=== PATIENT | female | born 1955 | race Caucasian/White ===

== ENCOUNTER → 2020-10-01 15:09 | Outpatient (BNVA) | payer MEDICARE, OTHER, SELFPAY | PROVIDERS: PCP Internal Medicine; Referring Provider Internal Medicine; Visit Provider Internal Medicine | DX: J45.20 Mild intermittent asthma, uncomplicated (principal); G47.33 Obstructive sleep apnea (adult) (pediatric); E66.01 Morbid (severe) obesity due to excess calories; Z68.43 Body mass index [BMI] 50.0-59.9, adult; Z99.89 Dependence on other enabling machines and devices | CPT/HCPCS: 99202 ==

== ENCOUNTER → 2021-01-07 13:33 | Outpatient (BNVA) | payer MEDICARE, OTHER, SELFPAY | PROVIDERS: PCP Internal Medicine; Visit Provider Internal Medicine | DX: J45.909 Unspecified asthma, uncomplicated (principal); E66.01 Morbid (severe) obesity due to excess calories; G47.33 Obstructive sleep apnea (adult) (pediatric); Z99.89 Dependence on other enabling machines and devices | CPT/HCPCS: 99212 ==

== ENCOUNTER 2021-02-07 10:08 | Outpatient (REF) | payer MEDICARE, OTHER, SELFPAY ==
--- NOTE | ~2021-02-07 | MM_ITS ---
EXAMINATION: BONE DENSITOMETRY CLINICAL INDICATION: Postmenopausal estrogen deficiency. COMPARISON: None (current study represents initial baseline exam). TECHNIQUE: Using a BigTip DXA System (software version: 13.1) manufactured by [employer], dual-energy x-ray absorptiometry was performed of the lumbar spine and left hip. The images are of good technical quality. Summary results are attached. FINDINGS: AP SPINE L1-L4: BMD 1.220 g/cm2, Z-score 0.8, T-score 0.3, normal. LEFT FEMUR, NECK: BMD 0.888 g/cm2, Z-score -0.3, T-score -1.1, osteopenia. LEFT FEMUR, TOTAL: BMD 0.899 g/cm2, Z-score -0.4, T-score -0.9, normal. IDENTIFIED RISK FACTORS: Height loss, low calcium intake, thiazide, menopause, hysterectomy, bilateral oophorectomy. HISTORY OF FRACTURE: None listed. MEDICATIONS: Calcium supplements or multivitamin, vitamin D. MM/XR DEXA axial skeleton IMPRESSION: 1. DIAGNOSIS: Osteopenia based on the lowest T-score value of -1.1 in the femoral neck applying World Health Organization criteria. 2. 10-YEAR FRACTURE RISK PREDICTION, FRAX: Major osteoporotic fracture (clinical spine, forearm, hip or shoulder) 6.3%. Hip fracture 0.4%. 3. Treatment Recommendations: NOF guidelines recommend consideration for treatment in postmenopausal women and men age 50 and older presenting with the following: -A hip or vertebral (clinical or morphometric) fracture. -T-score less than or equal to -2.5 at the femoral neck or spine after appropriate evaluation to exclude secondary causes. -Low bone mass at the hip or spine and a 10-year fracture probability by FRAX of greater than or equal to 3% for hip fracture or greater than or equal to 20% for major osteoporotic fracture based on the [place] adapted WHO algorithm. 4. Other Recommendations: All treatment decisions require clinical judgment and consideration of individual patient factors, including patient preferences, comorbidities, previous drug use, risk factors not captured in the FRAX model (e.g. frailty, falls, vitamin D deficiency, increased bone turnover, interval significant decline in bone density) and possible under or overestimation of fracture risk by FRAX. Additional medical evaluation for secondary cause of low bone mineral density may be appropriate. FUTURE SCAN RECOMMENDATION: People with diagnosed cases of osteoporosis or at high risk for fracture should have regular bone mineral density tests. For patients eligible for Medicare, routine testing is allowed once every 2 years. The testing frequency can be increased to one year for patients who have rapidly progressing disease, those who are receiving or discontinuing medical therapy to restore bone mass, or have additional risk factors.
== END 2021-02-07 10:09 | disposition home or self-care (01) ==
LOC: HO.MAMMO 10:08
PROVIDERS: PCP Internal Medicine; Visit Provider Obstetrics & Gynecology
DX: Z13.820 Encounter for screening for osteoporosis (principal); Z78.0 Asymptomatic menopausal state; E28.0 Estrogen excess; R29.890 Loss of height; E83.51 Hypocalcemia; Z90.710 Acquired absence of both cervix and uterus; Z90.722 Acquired absence of ovaries, bilateral; Z79.899 Other long term (current) drug therapy
CPT/HCPCS: 77080

== ENCOUNTER 2021-03-29 10:51 | Outpatient (REF) | payer MEDICARE, OTHER, SELFPAY ==
--- NOTE | ~2021-03-29 | MM_ITS ---
EXAMINATION: MM SCREENING DIGITAL BREAST TOMOSYNTHESIS, BILATERAL CLINICAL INFORMATION: Screening. Asymptomatic. The lifetime risk of breast cancer based on the Tyrer-Cuzick Model is 4%. COMPARISON: Mammography: 05/28/2015, 01/04/2014 TECHNIQUE: Digital breast tomosynthesis is performed in both the craniocaudal and mediolateral oblique views along with computer-aided detection (CAD). Synthesized 2D images are generated from the tomosynthesis. Additional bilateral CC views are provided. FINDINGS: There are scattered areas of fibroglandular density (ACR BI-RADS breast composition Category b). There are no significant masses, abnormal calcifications, or other abnormalities. Background stromal markings are similar to prior studies. The axilla and skin contours are unremarkable. MM/MM tomosynthesis screening BI IMPRESSION: No mammographic evidence of malignancy. ASSESSMENT: BI-RADS 1: Negative RECOMMENDATION: Routine annual mammography screening. This patient's information was entered into a reminder system with a target due date for their next mammogram.
== END 2021-03-29 10:52 | disposition home or self-care (01) ==
LOC: HO.MAMMO 10:51
PROVIDERS: Visit Provider Internal Medicine
DX: Z12.31 Encounter for screening mammogram for malignant neoplasm of breast (principal)
CPT/HCPCS: 77063; 77067

== ENCOUNTER → 2021-05-01 13:25 | Outpatient (BNVA) | payer MEDICARE, OTHER, SELFPAY | PROVIDERS: PCP Internal Medicine; Visit Provider Internal Medicine | DX: E66.01 Morbid (severe) obesity due to excess calories (principal); G47.33 Obstructive sleep apnea (adult) (pediatric); J45.909 Unspecified asthma, uncomplicated; Z99.89 Dependence on other enabling machines and devices | CPT/HCPCS: 99212 ==

== ENCOUNTER → 2021-10-29 13:11 | Outpatient (BNVA) | payer MEDICARE, OTHER, SELFPAY | PROVIDERS: PCP Internal Medicine; Visit Provider Internal Medicine | DX: J45.909 Unspecified asthma, uncomplicated (principal); G47.33 Obstructive sleep apnea (adult) (pediatric); E66.01 Morbid (severe) obesity due to excess calories; Z99.89 Dependence on other enabling machines and devices; Z68.43 Body mass index [BMI] 50.0-59.9, adult | CPT/HCPCS: 99212 ==

== ENCOUNTER 2022-04-04 10:53 | Outpatient (REF) | payer MEDICARE, OTHER, SELFPAY ==
--- NOTE | ~2022-04-04 | MM_ITS ---
EXAMINATION: MM SCREENING DIGITAL BREAST TOMOSYNTHESIS, BILATERAL CLINICAL INFORMATION: Screening. Asymptomatic. The lifetime risk of breast cancer based on the Tyrer-Cuzick Model is 7%. COMPARISON: Mammography: 03/29/2021, 05/28/2015 TECHNIQUE: Digital breast tomosynthesis is performed in both the craniocaudal and mediolateral oblique views along with computer-aided detection (CAD). Synthesized 2D images are generated from the tomosynthesis. Additional bilateral CC and bilateral MLO views are obtained. FINDINGS: There are scattered areas of fibroglandular density (ACR BI-RADS breast composition Category b). Breast tissue composition borders on predominantly fatty. Background stromal and fibroglandular densities are stable. There is no developing density or interval mass or architectural abnormality. No abnormal calcifications. The axilla and skin contours are unremarkable. MM/MM tomosynthesis screening BI IMPRESSION: No mammographic evidence of malignancy. ASSESSMENT: BI-RADS 1: Negative RECOMMENDATION: Routine annual mammography screening. This patient's information was entered into a reminder system with a target due date for their next mammogram.
== END 2022-04-04 10:54 | disposition home or self-care (01) ==
LOC: HO.MAMMO 10:53
PROVIDERS: PCP Internal Medicine; Visit Provider Internal Medicine
DX: Z12.31 Encounter for screening mammogram for malignant neoplasm of breast (principal)
CPT/HCPCS: 77063; 77067

== ENCOUNTER 2022-04-24 07:54 | Outpatient (REF) | payer MEDICARE, OTHER, SELFPAY ==
--- NOTE | ~2022-04-24 | CT_ITS ---
EXAMINATION: CT ABDOMEN AND PELVIS WITH CONTRAST CLINICAL INFORMATION: Abdominal pain. Diverticulitis. COMPARISON: Previous CT colonoscopy August 2016 TECHNIQUE: Multidetector volumetric images were obtained from the superior aspect of the liver through the pubic symphysis following administration 100 mL of Omnipaque 300 intravenous contrast. Sagittal and coronal reformatted images were obtained on the technologist's workstation. Oral contrast: Yes This CT examination was performed using dose optimization techniques as appropriate, variously including the following: *Automated exposure control *Adjustment of mA and/or kV according to patient size (this includes techniques or standardized protocols for targeted exams where dose is matched to indication/reason for exam; i.e. extremities or head) *Use of iterative reconstruction technique DLP: 1177 mGy-cm FINDINGS: LUNG BASES: The heart is enlarged. The lung bases are clear. LIVER, GALLBLADDER, AND BILIARY TREE: Enlarged fatty liver. No focal liver lesion is seen. The gallbladder is been removed. There is no biliary duct dilatation. PANCREAS: Unremarkable. SPLEEN: Unremarkable. ADRENAL GLANDS: Unremarkable. KIDNEYS AND URETERS: There is a 2 cm peripelvic cyst in the left kidney. The kidneys are otherwise unremarkable. No imaging follow-up needed. BLADDER: Not optimally distended. GASTROINTESTINAL TRACT: Stool throughout the colon. Diverticulosis. No evidence of diverticulitis. Nonspecific fatty infiltration of the wall of the right colon. This can be seen with old colitis. No evidence of acute colitis or diverticulitis. Normal appendix. Gastric lap band. ABDOMINAL WALL: No significant hernia is appreciated. LYMPH NODES: Normal. VASCULAR: There is evidence of atherosclerotic disease. No aneurysm. PELVIC VISCERA: Uterus appears to have been removed. No pelvic mass. OSSEOUS STRUCTURES: Degenerative changes of the spine and hip joints.. CT/CT abdomen pelvis w con IMPRESSION: Diverticulosis and constipation. No evidence of diverticulitis. Enlarged fatty liver. Left renal cyst. Gastric lap band. Fleischner guidelines were followed.
== END 2022-04-24 07:55 | disposition home or self-care (01) ==
LOC: HO.CT 07:54
PROVIDERS: PCP Internal Medicine; Visit Provider Internal Medicine
DX: R10.84 Generalized abdominal pain (principal)
CPT/HCPCS: 74177; Q9967

== ENCOUNTER → 2022-05-01 13:06 | Outpatient (BNVA) | payer MEDICARE, OTHER, SELFPAY | PROVIDERS: PCP Internal Medicine; Visit Provider Internal Medicine | DX: J45.909 Unspecified asthma, uncomplicated (principal); R06.02 Shortness of breath; E66.01 Morbid (severe) obesity due to excess calories; Z68.43 Body mass index [BMI] 50.0-59.9, adult; G47.33 Obstructive sleep apnea (adult) (pediatric); Z99.89 Dependence on other enabling machines and devices | CPT/HCPCS: 94010; 99212 ==

== ENCOUNTER 2022-06-13 17:01 | Emergency (ER) | payer MEDICARE, OTHER, SELFPAY ==
--- NOTE | ~2022-06-13 | XR_ITS ---
EXAMINATION: XR CHEST CLINICAL INFORMATION: Shortness of breath. COMPARISON: 10/29/2012 chest and rib radiographs. TECHNIQUE: Frontal view of the chest was obtained. FINDINGS: No significant abnormality is noted involving the heart, lungs, mediastinum, bony thorax or soft tissues. XR/XR chest 1V IMPRESSION: No acute cardiopulmonary process.
[2022-06-13 17:13] VITALS: BP 150/83; PULSE 83; RESP 18; TEMP 36.9; O2SAT 98; BMI 58.4
--- NOTE | 2022-06-13 17:19 | ED_ITS ---
HPI - SOB/Dyspnea General Chief Complaint: Dyspnea Stated Complaint: SOB +covid Time Seen by Provider: 06/13/22 17:14 Source: patient Mode of arrival: ambulatory Limitations: no limitations History of Present Illness HPI Narrative: This is a 66-year-old female pmhx obesity, copd, asthma presenting to the emergency department with complaints of shortness of breath, sore throat, malaise, fatigue, inability to taste or smell x5 days worsening. Patient tells me that she took an at-home COVID test today around noon and she was noted to be COVID positive. She tells me she is presenting today because she wants [place] lovid. She tells me that she tried calling her PCP who did never got back to her, she tried to attend a virtual appointment however was not able to do to technological issues, then she called in urgent care and they told him that they did not prescribe it. Patient tells me she is very worried because of her shortness of breath. Initially when she came to the emergency department she arrived on 4 L via nasal cannula and saturating 100% on room air, patient does not wear oxygen at home I immediately took her off of nasal cannula and she was still saturating 97% on room air. She reports she feels some chest discomfort/congestion. Denies nausea, vomiting, abdominal pain, headache, dizziness, leg swelling. MD elicited complaint: shortness of breath Pertinent past history: COPD, asthma and other (obesity ) Onset (ago): day(s) (5) Timing: constant Severity: moderate Exacerbating factors: nothing Relieving factors: nothing Known history of: COPD and asthma Associated symptoms: chest pain Related Data Home Medications Medication Instructions Recorded Confirmed paroxetine HCl 30 mg tablet 50 mg PO DAILY 10/01/20 Previous Rx's Medication Instructions Recorded atenolol 50 mg tablet 50 mg PO DAILY #30 tabs 09/17/20 cetirizine 10 mg capsule (Zyrtec) 10 mg PO DAILY 30 days #30 caps 09/17/20 cholecalciferol (vitamin D3) 25 25 mcg PO DAILY #30 caps 09/17/20 mcg (1,000 unit) capsule cyanocobalamin (vitamin B-12) 100 100 mcg PO DAILY #30 tabs 09/17/20 mcg tablet hydrochlorothiazide 12.5 mg tablet 12.5 mg PO DAILY #30 tabs 09/17/20 ibuprofen 800 mg tablet 800 mg PO ONCE #30 tabs 09/17/20 multivitamin 1 tab PO DAILY #30 tabs 09/17/20 nystatin 100,000 unit/gram topical 1 applic topical BID #60 grams 09/17/20 powder omega-3 fatty acids 1,250 mg 1,250 mg PO DAILY #30 caps 09/17/20 capsule simvastatin 20 mg tablet 20 mg PO DAILY #30 tabs 09/17/20 valsartan 80 mg tablet (Diovan) 80 mg PO DAILY #30 tabs 09/17/20 albuterol sulfate 90 mcg/actuation 2 puff inhalation Q4-6H PRN 10/29/21 aerosol inhaler (ProAir HFA) shortness of breath or wheezing 30 days #8.5 grams beclomethasone dipropionate 80 1 inh inhalation Q12H aSTHMA 30 10/29/21 mcg/actuation HFA breath activated days #10.6 grams aerosol (Qvar RediHaler) Allergies Allergy/AdvReac Type Severity Reaction Status Date / Time adhesive tape [ADHESIVE TAPE] Allergy Intermediate BLISTERS Verified 05/01/22 13:30 Review of Systems Review of Systems: Constitutional : No Weight loss, No Fever, No Chills, No Fatigue, No Malaise ENT/Mouth : No sore throat, No Rhinorrhea Eyes: No Eye Pain, No Swelling, No Redness Cardiovascular : + Chest Pain, + SOB, No Dyspnea on Exertion, No Orthopnea, No Edema, No Palpitations Respiratory : No Cough, No Sputum, No Wheezing Gastrointestinal : No Nausea, No Vomiting, No Diarrhea, No Constipation, No abdominal Pain, No Hematochezia, No Melena Genitourinary : No Dysuria, No Urinary Frequency, No Hematuria, Musculoskeletal : No joint pain, No Myalgias, No Joint Swelling Skin : No Skin Lesions, No rash Neuro : No Weakness, No Numbness, No Dizziness, No Headache All other systems reviewed and are negative Yes all other systems are reviewed and are negative [facility] Past Medical History Attestation statement: The following information was validated with the patient. Source: old records reviewed and nursing notes reviewed Medical History Bronchial asthma Morbid obesity JIMBO on CPAP Social History Social History Advance Directives: No Advance Directives Information Provided: No Physical Exam Vital Signs: Vital Signs: Last Vital Signs Temp 99.8 F 06/13/22 19:08 Pulse 76 06/13/22 19:08 Resp 18 06/13/22 17:13 BP 141/72 H 06/13/22 19:08 Pulse Ox 95 06/13/22 19:08 O2 Del Method 06/13/22 19:08 BMI result Body Mass Index 58.4 VSS Appearance: Alert.? Oriented X3.? No acute distress.? Head: Normocephalic, atraumatic, no step-offs or deformities Eyes: Pupils equal, round and reactive to light.? ENT: Pharynx normal.? Neck: Normal inspection.? Neck supple.? CVS: Normal heart rate and rhythm.? Pulses normal.? Respiratory: No respiratory distress.? Breath sounds normal.? Abdomen: Soft and nontender.? Skin: Skin warm and dry.? Normal skin color.? Normal skin turgor.? Extremities: No lower extremity edema.? No calf ttp. 5/5 strength to bilateral upper and lower extremities Back: No midline tenderness, no C-spine tenderness, full range of motion, no CVA tenderness bilaterally Neuro: Oriented X 3.? No motor deficit.? No sensory deficit. CN 2-12 intact Course Reevaluation(s) Reevaluation #1: CBC appears to be within normal limits. Chemistry with no acute electrolyte abnormalities requiring intervention. Troponin 8.1, will repeat 1 , EKG pending. COVID positive. Chest x-ray with no acute cardiopulmonary process is noted. Patient's vital signs remained stable she is saturating between 95-98% on room air. Time: 20:58 Reevaluation #2: Second troponin negative EKG nonischemic. Unlikely ACS. Low suspicion for PE. Patient's symptoms likely secondary to COVID-19. Discussed Paxlovid with cordell ent, explained to her that since her symptoms have been going on for 5 days it may not be as effective. Patient does not want tx with Paxlovid. At this time patient will be discharged home with strict return precautions. She is saturating 95% on room air even after ambulation. No need for hospital admission at this time. Time: 23:17 MDM - SOB/Dyspnea MDM Narrative Medical decision making narrative: 2054 66-year-old female presenting with COVID like symptoms x5 days. She is vaccinated x2. Physical examination benign. Vital signs are stable. No lower extremity edema, negative [place] bilaterally. Very low suspicion for PE. Will rule out ACS. Will obtain a chest x-ray to rule out pneumonia. Likely all symptoms secondary to COVID-19. Plan at this time is labs, troponin, EKG, chest x-ray. Medical Records Attestation: I reviewed the patient's medical records. Lab Data Attestation: I reviewed the patient's lab results. Result diagrams: 06/13/22 19:17 06/13/22 19:17 Labs: Lab Results 06/13/22 06/13/22 06/13/22 Range/Units 19:17 19:17 19:17 WBC 5.3 (4.8-10.8) X10*3/uL RBC 4.35 (4.20-5.50) X10*6/uL Hgb 12.9 (12.0-16.0) g/dl Hct 38.0 (37.0-47.0) % MCV 87.4 (80.0-98.0) fL MCH 29.7 (27.0-33.0) pg MCHC 33.9 (31.0-35.0) g/dl RDW 13.3 (11.0-16.0) % Plt Count 177 (160-400) X10*3/uL MPV 10.6 (9.4-12.3) fL Immature Gran % (Auto) 0.4 (0.0-0.4) % Neut % (Auto) 62.8 (45-73) % Lymph % (Auto) 19.8 L (20-40) % [place] % (Auto) 16.4 H (2-11) % Eos % (Auto) 0.4 (0-4) % Baso % (Auto) 0.2 (0-2) % Lymph # (Auto) 1.1 L (1.2-4.9) X10*3/uL [place] # (Auto) 0.9 (0.1-1.2) X10*3/uL Eos # (Auto) 0.0 (0.0-0.4) X10*3/uL Baso # (Auto) 0.0 (0.0-0.2) X10*3/uL Abs Immat Gran (auto) 0.02 (0.00-0.03) X10*3/uL Absolute Neuts (auto) 3.3 (2.0-8.3) x10*3/uL Absolute Nucleated RBC 0.000 (0.0-0.012) X10*3/uL Nucleated RBC % (auto) 0.0 (0.0-0.2) /100WBC Sodium 142 (135-145) mmol/L Potassium 3.6 (3.3-5.1) mmol/L Chloride 105 (96-108) mmol/L Carbon Dioxide 26 (22-29) mmol/L Anion Gap 15 (12-20) BUN 13 (9-16) mg/dL Creatinine 0.61 (0.5-1.4) mg/dL Estim Creat Clear Calc 128.9 Estimated GFR > 60 Random Glucose 120 H (60-115) mg/dL Calcium 8.6 (8.4-10.2) mg/dL Magnesium 1.9 (1.6-2.6) mg/dL Total Bilirubin 0.7 (0.0-1.0) mg/dL AST 16 (5-31) U/L ALT 16 (0-31) U/L Alkaline Phosphatase 81 (39-117) U/L Troponin I High Sens (<3.5-17.0) ng/L Total Protein 6.2 L (6.5-8.0) g/dL Albumin 3.8 (3.5-5.0) g/dL Procalcitonin 0.05 ng/mL Urine Color Urine Appearance Urine pH (5.0-8.0) Ur Specific [place] (1.005-1.025) Urine Protein (NEG-TRACE) MG/DL Urine Glucose (UA) (NEG) MG/DL Urine Ketones (NEG) MG/DL Urine Blood (NEG) Urine Nitrite (NEG) Ur Leukocyte Esterase (NEG) COVID-19 (BOLIVAR) (Negative) COVID-19 Clin Com 06/13/22 06/13/22 06/13/22 Range/Units 19:17 19:17 21:50 WBC (4.8-10.8) X10*3/uL RBC (4.20-5.50) X10*6/uL Hgb (12.0-16.0) g/dl Hct (37.0-47.0) % MCV (80.0-98.0) fL MCH (27.0-33.0) pg MCHC (31.0-35.0) g/dl RDW (11.0-16.0) % Plt Count (160-400) X10*3/uL MPV (9.4-12.3) fL Immature Gran % (Auto) (0.0-0.4) % Neut % (Auto) (45-73) % Lymph % (Auto) (20-40) % [place] % (Auto) (2-11) % Eos % (Auto) (0-4) % Baso % (Auto) (0-2) % Lymph # (Auto) (1.2-4.9) X10*3/uL [place] # (Auto) (0.1-1.2) X10*3/uL Eos # (Auto) (0.0-0.4) X10*3/uL Baso # (Auto) (0.0-0.2) X10*3/uL Abs Immat Gran (auto) (0.00-0.03) X10*3/uL Absolute Neuts (auto) (2.0-8.3) x10*3/uL Absolute Nucleated RBC (0.0-0.012) X10*3/uL Nucleated RBC % (auto) (0.0-0.2) /100WBC Sodium (135-145) mmol/L Potassium (3.3-5.1) mmol/L Chloride (96-108) mmol/L Carbon Dioxide (22-29) mmol/L Anion Gap (12-20) BUN (9-16) mg/dL Creatinine (0.5-1.4) mg/dL Estim Creat Clear Calc Estimated GFR Random Glucose (60-115) mg/dL Calcium (8.4-10.2) mg/dL Magnesium (1.6-2.6) mg/dL Total Bilirubin (0.0-1.0) mg/dL AST (5-31) U/L ALT (0-31) U/L Alkaline Phosphatase (39-117) U/L Troponin I High Sens 8.1 8.2 (<3.5-17.0) ng/L Total Protein (6.5-8.0) g/dL Albumin (3.5-5.0) g/dL Procalcitonin ng/mL Urine Color Urine Appearance Urine pH (5.0-8.0) Ur Specific [place] (1.005-1.025) Urine Protein (NEG-TRACE) MG/DL Urine Glucose (UA) (NEG) MG/DL Urine Ketones (NEG) MG/DL Urine Blood (NEG) Urine Nitrite (NEG) Ur Leukocyte Esterase (NEG) COVID-19 (BOLIVAR) Positive A (Negative) COVID-19 Clin Com See Note 06/13/22 Range/Units 22:10 WBC (4.8-10.8) X10*3/uL RBC (4.20-5.50) X10*6/uL Hgb (12.0-16.0) g/dl Hct (37.0-47.0) % MCV (80.0-98.0) fL MCH (27.0-33.0) pg MCHC (31.0-35.0) g/dl RDW (11.0-16.0) % Plt Count (160-400) X10*3/uL MPV (9.4-12.3) fL Immature Gran % (Auto) (0.0-0.4) % Neut % (Auto) (45-73) % Lymph % (Auto) (20-40) % [place] % (Auto) (2-11) % Eos % (Auto) (0-4) % Baso % (Auto) (0-2) % Lymph # (Auto) (1.2-4.9) X10*3/uL [place] # (Auto) (0.1-1.2) X10*3/uL Eos # (Auto) (0.0-0.4) X10*3/uL Baso # (Auto) (0.0-0.2) X10*3/uL Abs Immat Gran (auto) (0.00-0.03) X10*3/uL Absolute Neuts (auto) (2.0-8.3) x10*3/uL Absolute Nucleated RBC (0.0-0.012) X10*3/uL Nucleated RBC % (auto) (0.0-0.2) /100WBC Sodium (135-145) mmol/L Potassium (3.3-5.1) mmol/L Chloride (96-108) mmol/L Carbon Dioxide (22-29) mmol/L Anion Gap (12-20) BUN (9-16) mg/dL Creatinine (0.5-1.4) mg/dL Estim Creat Clear Calc Estimated GFR Random Glucose (60-115) mg/dL Calcium (8.4-10.2) mg/dL Magnesium (1.6-2.6) mg/dL Total Bilirubin (0.0-1.0) mg/dL AST (5-31) U/L ALT (0-31) U/L Alkaline Phosphatase (39-117) U/L Troponin I High Sens (<3.5-17.0) ng/L Total Protein (6.5-8.0) g/dL Albumin (3.5-5.0) g/dL Procalcitonin ng/mL Urine Color YELLOW Urine Appearance CLEAR Urine pH 7.5 (5.0-8.0) Ur Specific [place] 1.015 (1.005-1.025) Urine Protein NEG (NEG-TRACE) MG/DL Urine Glucose (UA) NEG (NEG) MG/DL Urine Ketones 15 (NEG) MG/DL Urine Blood NEG (NEG) Urine Nitrite NEG (NEG) Ur Leukocyte Esterase NEG (NEG) COVID-19 (BOLIVAR) (Negative) COVID-19 Clin Com Critical Care Time Critical Care Time Critical Care Time: No Discharge Plan Discharge Clinical Impression: COVID-19 Patient Disposition: Home, Self-Care Instructions: COVID-19 (Coronavirus Disease 2019) (ED) Additional Instructions: Take your medications as prescribed. If you were prescribed antibiotics today, it is important that you take your medication to their entirety, do not skip any doses, do not finish them early. Today you tested positive for COVID-19. Take Ibuprofen or Tylenol as needed for fevers or body aches. Quarantine for 5 days and ensure you wear a mask. After 5 days you should wear a mask for 5 days after that. Practice social distancing and good hand hygiene. Drink plenty of fluids. Follow-up with your primary care provider this week. Return to the emergency department with new or worsening symptoms. In case of emergency call 911 You can purchase a pulse oximeter from your local pharmacy or grocery store, and monitor your oxygen saturation if it goes below 94% you should return to the emergency department for further evaluation. Prescriptions: No Action Qvar RediHaler 80 mcg/actuation HFA aerosol breath activated 1 inh inhalation Q12H 30 Days Qty: 10.6 5RF Rx Instructions: administer with spacer albuterol sulfate [ProAir HFA] 90 mcg/actuation HFA aerosol inhaler 2 puff inhalation Q4-6H PRN (Reason: shortness of breath or wheezing) 30 Days Qty: 8.5 3RF paroxetine HCl 30 mg tablet 50 mg PO DAILY Referrals: Ang Bernstein MD [Primary Care Provider] - 2 days
--- NOTE | 2022-06-13 17:42 | ECG_ITS ---
Test Reason : DYSPENA Blood Pressure : / mmHG Vent. Rate : 073 BPM Atrial Rate : 073 BPM P-R Int : 184 ms QRS Dur : 088 ms QT Int : 380 ms P-R-T Axes : 077 003 068 degrees QTc Int : 418 ms Normal sinus rhythm Nonspecific ST and T wave abnormality Abnormal ECG No significant changes when compared with the previous EKG of 09 mar 2006 Referred By: Maral Hernandez Electronically Signed By:DAVID LARA
[2022-06-13 19:08] VITALS: BP 141/72; PULSE 76; TEMP 37.7; O2SAT 95
[2022-06-13 19:25] LABS: MANUAL DIFF FLAG NO
[2022-06-13 19:27] LABS: Basophils Percent Auto 0.2 % (0-2); Eosinophils Percent Auto 0.4 % (0-4); Hemoglobin 12.9 g/dl (12.0-16.0); Imm Gran Abs Auto 0.02 X10*3/uL (0.00-0.03); Imm Gran Pct Auto 0.4 % (0.0-0.4); Lymphocytes Absolute Auto 1.1 X10*3/uL (1.2-4.9); Lymphocytes Percent Auto 19.8 % (20-40); Mean Corpuscular HGB Conc 33.9 g/dl (31.0-35.0); Mean Corpuscular Hemoglobin 29.7 pg (27.0-33.0); Mean Corpuscular Volume 87.4 fL (80.0-98.0); Mean Platelet Volume 10.6 fL (9.4-12.3); Monocytes Absolute Auto 0.9 X10*3/uL (0.1-1.2); Monocytes Percent Auto 16.4 % (2-11); Neutrophils Absolute Auto 3.3 x10*3/uL (2.0-8.3); Neutrophils Percent Auto 62.8 % (45-73); Platelet Count 177 X10*3/uL (160-400); Red Blood Count 4.35 X10*6/uL (4.20-5.50); Red Cell Distribution Width 13.3 % (11.0-16.0); White Blood Count 5.3 X10*3/uL (4.8-10.8)
[2022-06-13 19:38] LABS: COVID-19 Test Positive (Negative); IDNOW Serial# 55D5AD1C
[2022-06-13 19:48] LABS: Alanine Aminotransferase 16 U/L (0-31); Albumin Level 3.8 g/dL (3.5-5.0); Alkaline Phosphatase 81 U/L (39-117); Anion Gap 15 (12-20); Aspartate Amino Transferase 16 U/L (5-31); Bilirubin Total 0.7 mg/dL (0.0-1.0); Blood Urea Nitrogen 13 mg/dL (9-16); Calcium 8.6 mg/dL (8.4-10.2); Carbon Dioxide 26 mmol/L (22-29); Chloride 105 mmol/L (96-108); Creatinine Clr Calc Pharmacy 128.9; Estimated Glomerular Filt Rate > 60; Glucose Random 120 mg/dL (60-115); Magnesium 1.9 mg/dL (1.6-2.6); Potassium 3.6 mmol/L (3.3-5.1); Sodium 142 mmol/L (135-145); Total Protein 6.2 g/dL (6.5-8.0)
[2022-06-13 19:55] LABS: Troponin-I High Sensitivity 8.1 ng/L (<3.5-17.0)
[2022-06-13 20:45] LABS: Procalcitonin 0.05 ng/mL
[2022-06-13 22:19] LABS: Appearance Urine CLEAR; Color Urine YELLOW; Glucose Urine UA NEG (NEG); Leukocyte Esterase Urine NEG (NEG); Nitrite Urine NEG (NEG); PH 7.5 (5.0-8.0); Specific Gravity - Urine 1.015 (1.005-1.025); Urine Blood NEG (NEG); Urine Ketones 15 MG/DL (NEG); Urine Protein NEG (NEG-TRACE)
[2022-06-13 22:26] LABS: Troponin-I High Sensitivity 8.2 ng/L (<3.5-17.0)
== END 2022-06-14 00:01 | disposition home or self-care (01) ==
PROVIDERS: Physician Assistant; Emergency Provider Internal Medicine; PCP Internal Medicine
DX: U07.1 COVID-19 (principal); J02.9 Acute pharyngitis, unspecified; E66.01 Morbid (severe) obesity due to excess calories; Z68.43 Body mass index [BMI] 50.0-59.9, adult
CPT/HCPCS: 36415; 71045; 80053; 81003; 83735; 84145; 84484; 85025; 87635; 93005; 99283; 99284

== ENCOUNTER 2022-07-23 15:43 | Inpatient (IN) | payer MEDICARE, OTHER, SELFPAY ==
--- NOTE | ~2022-07-23 | CT_ITS ---
EXAMINATION: CT ANGIOGRAM OF THE CHEST WITH AND WITHOUT CONTRAST (CT PULMONARY ANGIOGRAM FOR PE) CLINICAL INFORMATION: Reason for Exam + dimer, new onset AFib, cp, sob COMPARISON: Chest radiograph 07/23/[address] abdomen pelvis 04/24/2022 TECHNIQUE: Prior to contrast administration, noncontrast localization images were obtained. Subsequently, multidetector volumetric imaging was performed from the thoracic inlet to below the diaphragms following the administration of 75 mL Omnipaque 350 intravenous contrast. No contrast reaction reported Sagittal, coronal, and MIP oblique sagittal reformatted images were obtained on the CT workstation, uploaded to PACS, and reviewed. This CT examination was performed using dose optimization techniques as appropriate, variously including the following: *Automated exposure control *Adjustment of mA and/or kV according to patient size (this includes techniques or standardized protocols for targeted exams where dose is matched to indication/reason for exam; i.e. extremities or head) *Use of iterative reconstruction technique Total exam dose-length product 594 mGy-cm FINDINGS: QUALITY OF STUDY/CONTRAST BOLUS: Satisfactory. PULMONARY ARTERIES: No central or segmental pulmonary emboli. THORACIC AORTA: No aneurysm. Opacification is not adequate to assess for dissection.. LUNG: A 5 mm lung nodule is present in the right upper lobe (7:176). No focal consolidation, nodules or masses. PLEURA: No pleural effusion or pneumothorax. Subpleural fat is present, right greater than left. MEDIASTINUM: Heart size upper limits of normal. No pericardial effusion. No hilar or mediastinal lymphadenopathy. No evidence of septal bowing or right heart strain. CHEST WALL/AXILLA: No axillary or internal mammary lymphadenopathy. OSSEOUS STRUCTURES: No acute or suspicious osseous abnormality. UPPER ABDOMEN: Gastric lap band is present. There is marked reflux of contrast into the IVC and hepatic veins to suggest elevated right heart pressures. CT/CT angio chest PE protocol IMPRESSION: 1. No pulmonary emboli seen. 2. Marked reflux of contrast into the IVC and hepatic veins suggesting elevated right-sided heart pressures. 3. Incidentally noted 5 mm right upper lobe lung nodule which most likely needs no further follow-up. 2017 Fleischner Society Recommendations for Lung Nodule(s): Follow-Up based on size (average of long- and short-axis diameters). Use most suspicious nodule for followup. Single Solid low risk nodule < 6 mm: No routine follow-up imaging is recommended in low risk and high risk patients. These guidelines do not apply to patients younger than 35 years, immunocompromised patients, and patients with cancer. F/u in patients with significant comorbidities as clinically warranted. For lung cancer screening, adhere to Lung-RADS guidelines. Reference: Radiology. 2017 Brennon; 284(1):228-243 VTE: negative
--- NOTE | ~2022-07-23 | XR_ITS ---
EXAMINATION: XR CHEST CLINICAL INFORMATION: Shortness of breath COMPARISON: Chest x-ray 06/13/2022 TECHNIQUE: Frontal view of the chest was obtained. FINDINGS: Lung volumes are slightly low. Mild bibasilar pulmonary vascular crowding. No airspace consolidation. No appreciable pleural effusion or pneumothorax. Cardiomediastinal silhouette is unchanged. No evidence of pulmonary edema. No acute osseous injury. XR/XR chest 1V IMPRESSION: 1. Mildly hypoinflated lungs. No acute pulmonary process.
[2022-07-23 16:10] VITALS: BP 123/75; PULSE 98; RESP 18; TEMP 36.9; O2SAT 94
--- NOTE | 2022-07-23 16:22 | ECG_ITS ---
Test Reason : AFIB Blood Pressure : / mmHG Vent. Rate : 127 BPM Atrial Rate : 000 BPM P-R Int : 000 ms QRS Dur : 086 ms QT Int : 346 ms P-R-T Axes : 000 005 165 degrees QTc Int : 502 ms Atrial fibrillation with rapid ventricular response Nonspecific T wave abnormality Abnormal ECG When compared with ECG of 13-JUN-2022 18:49, Atrial fibrillation has replaced Sinus rhythm Vent. rate has increased BY 54 BPM Nonspecific T wave abnormality, worse in Inferior leads Referred By: Maral Hernandez Electronically Signed By:LULI MC
--- NOTE | 2022-07-23 16:26 | ED_ITS ---
HPI - Chest Pain General Chief Complaint: Chest Pain Stated Complaint: sent from doctors office Time Seen by Provider: 07/23/22 16:01 Source: patient Mode of arrival: ambulatory Limitations: no limitations History of Present Illness HPI narrative: 66-year-old femjuventino with a PMHx of bronchial asthma, morbid obesity, and JIMBO on CPAP, presenting with chest pressure and shortness of breath. The patient tells me that 2 weeks ago she had COVID-19 and that since then she has been dealing with dyspnea on exertion causing her to have to take breaks and catch her breath while walking. She also reports having persistent chest pressure that is located throughout her chest and feels heavy. Denies any radiation of this pain. Her symptoms have been present for the past 2 weeks since having COVID-19 but have been worsening. She went to see Dr. Aldridge for follow-up on dyspnea on exertion, had an EKG done and was noted to be in A-fib. She was then sent to the ED for further evaluation. Patient noted to be diaphoretic upon exam, she says this has been happening for the past few days. She denies any palpitations, new leg swelling, dizziness, vision changes, headache, fevers, or chills. She is not currently anticoagulated but takes Aspirin occasionally for knee pain. MD complaint: chest heaviness Pertinent past history: asthma Related Data Home Medications Medication Instructions Recorded Confirmed paroxetine HCl 30 mg tablet 45 mg PO DAILY 10/01/20 07/23/22 valsartan 320 mg tablet 320 mg PO DAILY 07/23/22 07/23/22 Previous Rx's Medication Instructions Recorded atenolol 50 mg tablet 50 mg PO DAILY #30 tabs 09/17/20 cholecalciferol (vitamin D3) 25 25 mcg PO DAILY #30 caps 09/17/20 mcg (1,000 unit) capsule cyanocobalamin (vitamin B-12) 100 100 mcg PO DAILY #30 tabs 09/17/20 mcg tablet hydrochlorothiazide 12.5 mg tablet 12.5 mg PO DAILY #30 tabs 09/17/20 ibuprofen 800 mg tablet 800 mg PO ONCE #30 tabs 09/17/20 multivitamin 1 tab PO DAILY #30 tabs 09/17/20 omega-3 fatty acids 1,250 mg 1,250 mg PO DAILY #30 caps 09/17/20 capsule simvastatin 20 mg tablet 20 mg PO DAILY #30 tabs 09/17/20 albuterol sulfate 90 mcg/actuation 2 puff inhalation Q4-6H PRN 10/29/21 aerosol inhaler (ProAir HFA) shortness of breath or wheezing 30 days #8.5 grams beclomethasone dipropionate 80 1 inh inhalation Q12H aSTHMA 30 10/29/21 mcg/actuation HFA breath activated days #10.6 grams aerosol (Qvar RediHaler) Allergies Allergy/AdvReac Type Severity Reaction Status Date / Time adhesive tape [ADHESIVE TAPE] Allergy Intermediate BLISTERS Verified 07/23/22 15:06 Review of Systems Review of Systems: Constitutional : + diaphoresis + fatigue No Weight loss, No Fever, No Chills, No Malaise ENT/Mouth : No sore throat, No Rhinorrhea Eyes: No Eye Pain, No Swelling, No Redness Cardiovascular : + Chest Pressure, + SOB, + Dyspnea on Exertion, No Orthopnea, No Edema, No Palpitations Respiratory : No Cough, No Sputum, No Wheezing Gastrointestinal : No Nausea, No Vomiting, No Diarrhea, No Constipation, No abdominal Pain, No Hematochezia, No Melena Genitourinary : No Dysuria, No Urinary Frequency, No Hematuria, Musculoskeletal : No joint pain, No Myalgias, No Joint Swelling Skin : No Skin Lesions, No rash Neuro : No Weakness, No Numbness, No Dizziness, No Headache Psych : No Anxiety/Panic, No Depression All other systems reviewed and are negative Yes all other systems are reviewed and are negative PMFSH Past Medical History Attestation statement: The following information was validated with the patient. Source: old records reviewed and nursing notes reviewed Medical History (Updated 07/23/22 @ 18:09 by TEODORA Zaman) Bronchial asthma Morbid obesity JIMBO on CPAP Post covid-19 condition, unspecified Tachycardia Social History Social History Advance Directives: No Advance Directives Information Provided: No Physical Exam Vital Signs: Vital Signs: Last Vital Signs Temp 98.5 F 07/23/22 16:10 Pulse 115 H 07/23/22 19:22 Resp 16 07/23/22 19:22 BP 122/77 07/23/22 19:22 Pulse Ox 98 07/23/22 19:22 O2 Del Method 07/23/22 19:22 O2 Flow Rate 2 07/23/22 19:22 BMI result Body Mass Index 3.7 VSS, noted to be in A-fib on monitor Appearance: Alert.? Oriented X3.? No acute distress.?Diaphoretic appearing. Head: Normocephalic, atraumatic, no step-offs or deformities Eyes: Pupils equal, round and reactive to light.? ENT: Pharynx normal.? Neck: Normal inspection.? Neck supple.? CVS: Irregularly irregular rhythm with tachycardic rate, likely atrial fibrilation.? Pulses normal.? Respiratory: No respiratory distress.? Breath sounds normal.? Abdomen: Soft and nontender.? Skin: Skin warm, diaphoretic.? Normal skin color.? Normal skin turgor.? Extremities: No lower extremity edema.? No calf ttp. 5/5 strength to bilateral upper and lower extremities Neuro: Oriented X 3.? No motor deficit.? No sensory deficit. CN 2-12 intact Course Reevaluation(s) Reevaluation #1: CBC is within normal limits. Chemistry is remarkable for an slightly elevated BUN of 22, likely secondary to poor PO intake and dehydration. Blilirubin slightly elevated at 1.3, no tenderness to palpation on exam. BNP elevated at 513, patient does not appear overtly fluid overloaded. Trop negative, EKG non- ischemic however, new onset a-fib noted. D-dimer elevated at 383, will obtain CTA to rule out PE, no calf tenderness unlikely a DVT. PT/INR WNL. CXR with mild bibasilar pulmonary vascular crowding however, no overt pulmonary edema. Time: 17:30 Reevaluation #2: Patient given Metoprolol with minimal HR response. Given 10 mg Cardizem with slo wing of HR to the 100-130s but remains tachycardic and in a-fib. Will administer additional 10mg Cardizem. CTA of the chest pending. Time: 18:05 Reevaluation #3: Starting cardizem drip at 5 mg. Patient will be admitted to the hospitalist team. Spoke to Idalmis JOHNSON who accepted admission. TT out to Cardiology Dr. Clifford awaiting recommendation. Time: 19:07 Additional Reevaluation(s): 1915 Cardiology recommends anticoagulation patient will be started on low dose heparin as CTA doesn't show PE. MDM - Chest Pain MDM Narrative Medical decision making narrative: [id number] 66 year old female sent in by pulmonology for evaluation of dyspnea on exertion and new onset a-fib also complaining of chest discomfort. Not anticoagulated. Recent COVID19 infection, on 06/13/2022. PE significant for irregularly irregular, tachycardic heart rate and rhythm and diaphoretic patient. Vital signs stable, patient hemodynamically stable. No lower extremity edema. Likely new onset A-fib, will rule out ACS and PE. Plan to obtain EKG, basic labs, d-dimer, troponins. Will give 5mg IV Metoprolol. Medical Records Data Attestation: I reviewed the patient's medical records. Lab Data Attestation: I reviewed the patient's lab results. Result diagrams: 07/23/22 17:00 07/23/22 17:00 Labs: Lab Results 07/23/22 07/23/22 07/23/22 Range/Units 17:00 17:00 17:00 WBC 9.6 (4.8-10.8) X10*3/uL RBC 4.49 (4.20-5.50) X10*6/uL Hgb 13.3 (12.0-16.0) g/dl Hct 39.7 (37.0-47.0) % MCV 88.4 (80.0-98.0) fL MCH 29.6 (27.0-33.0) pg MCHC 33.5 (31.0-35.0) g/dl RDW 13.7 (11.0-16.0) % Plt Count 286 D (160-400) X10*3/uL MPV 11.1 (9.4-12.3) fL Immature Gran % (Auto) 0.3 (0.0-0.4) % Neut % (Auto) 69.5 (45-73) % Lymph % (Auto) 21.2 (20-40) % Roberts % (Auto) 7.9 (2-11) % Eos % (Auto) 0.8 (0-4) % Baso % (Auto) 0.3 (0-2) % Lymph # (Auto) 2.0 (1.2-4.9) X10*3/uL Roberts # (Auto) 0.8 (0.1-1.2) X10*3/uL Eos # (Auto) 0.1 (0.0-0.4) X10*3/uL Baso # (Auto) 0.0 (0.0-0.2) X10*3/uL Abs Immat Gran (auto) 0.03 (0.00-0.03) X10*3/uL Absolute Neuts (auto) 6.7 (2.0-8.3) x10*3/uL Absolute Nucleated RBC 0.000 (0.0-0.012) X10*3/uL Nucleated RBC % (auto) 0.0 (0.0-0.2) /100WBC PT (10.0-13.1) SEC INR (0.9-1.1) D-Dimer High Sensitivty 383 NG/ML Sodium 144 (135-145) mmol/L Potassium 4.1 (3.3-5.1) mmol/L Chloride 105 (96-108) mmol/L Carbon Dioxide 28 (22-29) mmol/L Anion Gap 15 (12-20) BUN 22 H D (9-16) mg/dL Creatinine 0.74 (0.5-1.4) mg/dL Estim Creat Clear Calc 11.1 Estimated GFR > 60 POC Glucose (60-115) mg/dL Random Glucose 132 H (60-115) mg/dL Calcium 8.9 (8.4-10.2) mg/dL Magnesium 1.8 (1.6-2.6) mg/dL Total Bilirubin 1.3 H (0.0-1.0) mg/dL AST 17 (5-31) U/L ALT 23 (0-31) U/L Alkaline Phosphatase 80 (39-117) U/L Troponin I High Sens (<3.5-17.0) ng/L B-Natriuretic Peptide (<100) pg/mL Total Protein 6.1 L (6.5-8.0) g/dL Albumin 3.5 (3.5-5.0) g/dL COVID-19 (BOLIVAR) (Negative) COVID-19 Clin Com 07/23/22 07/23/22 07/23/22 Range/Units 17:00 17:00 17:00 WBC (4.8-10.8) X10*3/uL RBC (4.20-5.50) X10*6/uL Hgb (12.0-16.0) g/dl Hct (37.0-47.0) % MCV (80.0-98.0) fL MCH (27.0-33.0) pg MCHC (31.0-35.0) g/dl RDW (11.0-16.0) % Plt Count (160-400) X10*3/uL MPV (9.4-12.3) fL Immature Gran % (Auto) (0.0-0.4) % Neut % (Auto) (45-73) % Lymph % (Auto) (20-40) % [place] % (Auto) (2-11) % Eos % (Auto) (0-4) % Baso % (Auto) (0-2) % Lymph # (Auto) (1.2-4.9) X10*3/uL [place] # (Auto) (0.1-1.2) X10*3/uL Eos # (Auto) (0.0-0.4) X10*3/uL Baso # (Auto) (0.0-0.2) X10*3/uL Abs Immat Gran (auto) (0.00-0.03) X10*3/uL Absolute Neuts (auto) (2.0-8.3) x10*3/uL Absolute Nucleated RBC (0.0-0.012) X10*3/uL Nucleated RBC % (auto) (0.0-0.2) /100WBC PT (10.0-13.1) SEC INR (0.9-1.1) D-Dimer High Sensitivty NG/ML Sodium (135-145) mmol/L Potassium (3.3-5.1) mmol/L Chloride (96-108) mmol/L Carbon Dioxide (22-29) mmol/L Anion Gap (12-20) BUN (9-16) mg/dL Creatinine (0.5-1.4) mg/dL Estim Creat Clear Calc Estimated GFR POC Glucose (60-115) mg/dL Random Glucose (60-115) mg/dL Calcium (8.4-10.2) mg/dL Magnesium (1.6-2.6) mg/dL Total Bilirubin (0.0-1.0) mg/dL AST (5-31) U/L ALT (0-31) U/L Alkaline Phosphatase (39-117) U/L Troponin I High Sens < 3.5 D (<3.5-17.0) ng/L B-Natriuretic Peptide 513 H (<100) pg/mL Total Protein (6.5-8.0) g/dL Albumin (3.5-5.0) g/dL COVID-19 (BOLIVAR) Negative (Negative) COVID-19 Clin Com See Note 07/23/22 07/23/22 Range/Units 17:00 17:55 WBC (4.8-10.8) X10*3/uL RBC (4.20-5.50) X10*6/uL Hgb (12.0-16.0) g/dl Hct (37.0-47.0) % MCV (80.0-98.0) fL MCH (27.0-33.0) pg MCHC (31.0-35.0) g/dl RDW (11.0-16.0) % Plt Count (160-400) X10*3/uL MPV (9.4-12.3) fL Immature Gran % (Auto) (0.0-0.4) % Neut % (Auto) (45-73) % Lymph % (Auto) (20-40) % Roberts % (Auto) (2-11) % Eos % (Auto) (0-4) % Baso % (Auto) (0-2) % Lymph # (Auto) (1.2-4.9) X10*3/uL [place] # (Auto) (0.1-1.2) X10*3/uL Eos # (Auto) (0.0-0.4) X10*3/uL Baso # (Auto) (0.0-0.2) X10*3/uL Abs Immat Gran (auto) (0.00-0.03) X10*3/uL Absolute Neuts (auto) (2.0-8.3) x10*3/uL Absolute Nucleated RBC (0.0-0.012) X10*3/uL Nucleated RBC % (auto) (0.0-0.2) /100WBC PT 12.9 (10.0-13.1) SEC INR 1.1 (0.9-1.1) D-Dimer High Sensitivty NG/ML Sodium (135-145) mmol/L Potassium (3.3-5.1) mmol/L Chloride (96-108) mmol/L Carbon Dioxide (22-29) mmol/L Anion Gap (12-20) BUN (9-16) mg/dL Creatinine (0.5-1.4) mg/dL Estim Creat Clear Calc Estimated GFR POC Glucose 108 (60-115) mg/dL Random Glucose (60-115) mg/dL Calcium (8.4-10.2) mg/dL Magnesium (1.6-2.6) mg/dL Total Bilirubin (0.0-1.0) mg/dL AST (5-31) U/L ALT (0-31) U/L Alkaline Phosphatase (39-117) U/L Troponin I High Sens (<3.5-17.0) ng/L B-Natriuretic Peptide (<100) pg/mL Total Protein (6.5-8.0) g/dL Albumin (3.5-5.0) g/dL COVID-19 (BOLIVAR) (Negative) COVID-19 Clin Com ECG Data ECG #1: Attestation: I personally reviewed and interpreted this ECG as follows: ECG interpretation date: 07/23/22 ECG interpretation time: 18:07 Prior ECG tracings: available for review Interpretation: Ventricular rate of 127, no distinct P waves, QRS normal, QT/QTC normal. EKG w ith atrial fibrillation with rapid ventricular response. No ST elevations or inversions which are concerning for ischemia. When compared to previous EKG from May 2022 atrial fibrillation is now present, this medley new onset AFib. Critical Care Time Critical Care Time Critical Care Time: Yes Total Critical Care Time: 45 Attestation: I attest to this time spent taking care of the patient, obtaining history, physical, reviewing labs, imaging, speaking to my attending, reached out cardiology Discharge Plan Discharge Clinical Impression: Chest pain, Atrial fibrillation, CHRISTIANSEN (dyspnea on exertion) Patient Disposition: Admitted As Inpatient
[2022-07-23] MEDS: Metoprolol Tartrate 5 MG/5 ML VIAL IVPUSH (16:51)
[2022-07-23 17:04] VITALS: BP 108/88; PULSE 127; RESP 18; O2SAT 95
[2022-07-23 17:05] LABS: MANUAL DIFF FLAG NO
[2022-07-23 17:11] LABS: Basophils Percent Auto 0.3 % (0-2); Eosinophils Absolute Auto 0.1 X10*3/uL (0.0-0.4); Eosinophils Percent Auto 0.8 % (0-4); Hematocrit 39.7 % (37.0-47.0); Hemoglobin 13.3 g/dl (12.0-16.0); Imm Gran Abs Auto 0.03 X10*3/uL (0.00-0.03); Imm Gran Pct Auto 0.3 % (0.0-0.4); Lymphocytes Percent Auto 21.2 % (20-40); Mean Corpuscular HGB Conc 33.5 g/dl (31.0-35.0); Mean Corpuscular Hemoglobin 29.6 pg (27.0-33.0); Mean Corpuscular Volume 88.4 fL (80.0-98.0); Mean Platelet Volume 11.1 fL (9.4-12.3); Monocytes Absolute Auto 0.8 X10*3/uL (0.1-1.2); Monocytes Percent Auto 7.9 % (2-11); Neutrophils Absolute Auto 6.7 x10*3/uL (2.0-8.3); Neutrophils Percent Auto 69.5 % (45-73); Platelet Count 286 X10*3/uL (160-400); Red Blood Count 4.49 X10*6/uL (4.20-5.50); Red Cell Distribution Width 13.7 % (11.0-16.0); White Blood Count 9.6 X10*3/uL (4.8-10.8)
--- NOTE | 2022-07-23 17:15 | PHA.MEDREC ---
Pharmacy Consult ? Medication Reconciliation Pharmacy has completed the medication reconciliation. Spoke to patient at bedside, pt was a great historian.
[2022-07-23 17:19] LABS: INTERNATIONAL NORM RATIO 1.1 (0.9-1.1); Prothrombin Time 12.9 SEC (10.0-13.1)
[2022-07-23 17:21] LABS: D Dimer High Sensitivity 383 NG/ML
[2022-07-23] MEDS: 0.9 % Sodium Chloride 1,000 ML 999 ML IV (17:22)
[2022-07-23] MEDS: Calcium Gluconate/NaCl,Iso-Osm 2 GM/100 ML PLAST..BAG IV (17:22)
[2022-07-23 17:27] LABS: COVID-19 Test Negative (Negative); IDNOW Serial# 55D5AD1C
[2022-07-23 17:28] LABS: Alanine Aminotransferase 23 U/L (0-31); Albumin Level 3.5 g/dL (3.5-5.0); Alkaline Phosphatase 80 U/L (39-117); Anion Gap 15 (12-20); Aspartate Amino Transferase 17 U/L (5-31); Bilirubin Total 1.3 mg/dL (0.0-1.0); Blood Urea Nitrogen 22 mg/dL (9-16); Calcium 8.9 mg/dL (8.4-10.2); Carbon Dioxide 28 mmol/L (22-29); Chloride 105 mmol/L (96-108); Creatinine Clr Calc Pharmacy 11.1; Estimated Glomerular Filt Rate > 60; Glucose Random 132 mg/dL (60-115); Magnesium 1.8 mg/dL (1.6-2.6); Potassium 4.1 mmol/L (3.3-5.1); Sodium 144 mmol/L (135-145); Total Protein 6.1 g/dL (6.5-8.0)
[2022-07-23 17:33] LABS: B Type Natriuretic Peptide 513 pg/mL (<100); Troponin-I High Sensitivity < 3.5 ng/L (<3.5-17.0)
[2022-07-23] MEDS: dilTIAZem HCL 50 MG/10 ML VIAL 10 MG IVPUSH ×2 (17:44→18:09)
[2022-07-23 18:01] LABS: Glucose, Whole Blood 108 mg/dL (60-115)
[2022-07-23 18:12] VITALS: BP 108/51; PULSE 130; RESP 18; O2SAT 98
[2022-07-23] MEDS: iohexoL 350 MG/ML 100 ML INFUS..BTL IV (18:33)
[2022-07-23] MEDS: dilTIAZem HCL 125 MG in 0.9 % Sodium Chloride 100 ML IVCONT (19:20)
[2022-07-23 19:22] VITALS: BP 122/77; PULSE 115; RESP 16; O2SAT 98
[2022-07-23 19:41] LABS: Appearance Urine Clear; Color Urine Yellow; Glucose Urine UA Negative (Negative); Leukocyte Esterase Urine Negative (Negative); Nitrite Urine Negative (Negative); PH 5.5 (5.0-9.0); Specific Gravity - Urine >= 1.030 (1.005-1.025); Urine Blood Negative (Negative); Urine Ketones Negative (Negative); Urine Protein Negative (Neg-Trace)
[2022-07-23 19:47] VITALS: BMI 61.0
[2022-07-23] MEDS: Heparin Sodium,Porcine 5,000 UNIT/ML VIAL 600 UNIT IVPUSH (20:16)
[2022-07-23] MEDS: Heparin Sodium,Porcine/1/2NS 25,000 UNIT/250 ML IV.SOLN 18.77 UNIT IVCONT (20:58)
--- NOTE | 2022-07-23 20:59 | PM.IMHP ---
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 Over last few weeks she has also been reporting episodes of palpitations lasting for several minutes as well as diaphoresis primarily when walking. Heart rate at the office was 124 with EKG showing new onset atrial fibrillation with RVR. In the ED, cxr with hypoinflation. EKG with atrial fibraillation, rate 127 with nonspecific t wave abnormality. Troponin neg at 3.5. BNP 513. Hematology and chemistry studies otherwise unremarkable. CTA negative for PE. Given 15mg push metoprolol as well as 2 pushes diltiazem with limited improvement of HR to 110-120. Started on diltiazem drip at 5ml/hr per protocol. ED discussed case with cards. Heparin initiated per protocol. Pt/INR 12.9/1.1. D-Dimer 383. Review of Systems Review of Systems: General: No fevers, malaise, unintentional weight loss Cardiovascular: +chest pressure, +palpitations, +diaphoresis. No chest pain, palpitations, or leg edema Respiratory: +diaphoresis. No wheezing, cough GI: No abdominal pain, nausea, vomiting, diarrhea, constipation, melena, hematochezia Neuro: +lightheadedness. No headaches, weakness, paresthesias Skin: No rashes or lesions [facility] Medical History (Updated 07/23/22 @ 21:28 by TEODORA Fuentes) Bronchial asthma HTN (hypertension) MDD (major depressive disorder) Morbid obesity JIMBO on CPAP Post covid-19 condition, unspecified Social History Advance Directives: No Advance Directives Information Provided: No Meds Allergies Allergy/AdvReac Type Severity Reaction Status Date / Time adhesive tape [ADHESIVE TAPE] Allergy Intermediate BLISTERS Verified 07/23/22 15:06 Active Medications: Current Medications Heparin Sodium (Porcine) (Heparin Sodium,Porcine 5,000 Unit/Ml Vial) 6,300 unit 40 unit/kg (6300 unit) IVPUSH PROTOCOL BOLUS PRN; Protocol PRN Reason: 40 unit/kg - Heparin Protocol Heparin Sodium (Porcine) (Heparin Sodium,Porcine 5,000 Unit/Ml Vial) 10,000 unit IVPUSH PROTOCOL BOLUS PRN; Protocol PRN Reason: 80 unit/kg - Heparin Protocol Diltiazem HCl 125 mg/ Sodium (Chloride) 125 mls @ 0 mls/hr IVCONT .Q0M CANDY; Protocol Last Admin: 07/23/22 19:20 Dose: 5 mg/hr, 5 mls/hr Heparin Sodium/Sodium Chloride (Heparin Sodium,Porcine/1/2ns) 25,000 unit in 250 mls @ 0 mls/hr IVCONT .Q0M CANDY; Protocol Pharmacy Consult (Consult Rx Perform Med Rec) 1 each MISCELLANE ONCE PRN PRN Reason: Consult order Sodium Chloride (0.9 % Sodium Chloride Flush 3 Ml Syringe) 3 ml [facility] Home Medications Medication Instructions Recorded Confirmed Last Taken Type paroxetine HCl 30 mg tablet 45 mg PO DAILY 10/01/20 07/23/22 07/23/22 History valsartan 320 mg tablet 320 mg PO DAILY 07/23/22 07/23/22 07/23/22 History Physical Exam Vital Signs and Narrative: Vital Signs: Last Vital Signs Temp 98.5 F 07/23/22 16:10 Pulse 115 H 07/23/22 19:22 Resp 16 07/23/22 19:22 BP 122/77 07/23/22 19:22 Pulse Ox 98 07/23/22 19:22 O2 Del Method 07/23/22 19:22 O2 Flow Rate 2 07/23/22 19:22 BMI result Body Mass Index 61.0 Constitutional - Awake and Alert, No apparent distress Eyes - PERRLA, EOMI Cardiovascular - S1S2, RRR, 1+ edema BLE Respiratory - Normal lung expansion, Normal respiratory effort, No respiratory distress, CTA bilaterally Gastrointestinal - NT / ND; +BS; No rebound or guarding Extremities - no calf tenderness bilaterally, no swelling Skin - Warm/Dry Neurological - Alert & oriented x3, CN II-XII in tact, 5/5 strength BUE and BLE Psychological - Appropriate affect Results Labs CBC and Chem 7: 07/23/22 22:16 07/23/22 17:00 Labs: Laboratory Results - last 24 hr 07/23/22 07/23/22 07/23/22 17:00 17:00 17:00 MCV 88.4 MCH 29.6 MCHC 33.5 RDW 13.7 Plt Count 286 D MPV 11.1 Immature Gran % (Auto) 0.3 Neut % (Auto) 69.5 Lymph % (Auto) 21.2 [place] % (Auto) 7.9 Eos % (Auto) 0.8 Baso % (Auto) 0.3 Lymph # (Auto) 2.0 [place] # (Auto) 0.8 Eos # (Auto) 0.1 Baso # (Auto) 0.0 Abs Immat Gran (auto) 0.03 Absolute Neuts (auto) 6.7 Absolute Nucleated RBC 0.000 Nucleated RBC % (auto) 0.0 PT INR D-Dimer High Sensitivty 383 Anion Gap 15 Estim Creat Clear Calc 11.1 Estimated GFR > 60 POC Glucose Random Glucose 132 H Calcium 8.9 Magnesium 1.8 Total Bilirubin 1.3 H AST 17 ALT 23 Alkaline Phosphatase 80 B-Natriuretic Peptide Total Protein 6.1 L Albumin 3.5 Urine Color Urine Appearance Urine pH Ur Specific [place] Urine Protein Urine Glucose (UA) Urine Ketones Urine Blood Urine Nitrite Ur Leukocyte Esterase COVID-19 (BOLIVAR) COVID-[employer] Clin Com 07/23/22 07/23/22 07/23/22 17:00 17:00 17:00 MCV MCH MCHC RDW Plt Count MPV Immature Gran % (Auto) Neut % (Auto) Lymph % (Auto) [place] % (Auto) Eos % (Auto) Baso % (Auto) Lymph # (Auto) [place] # (Auto) Eos # (Auto) Baso # (Auto) Abs Immat Gran (auto) Absolute Neuts (auto) Absolute Nucleated RBC Nucleated RBC % (auto) PT 12.9 INR 1.1 D-Dimer High Sensitivty Anion Gap Estim Creat Clear Calc Estimated GFR POC Glucose Random Glucose Calcium Magnesium Total Bilirubin AST ALT Alkaline Phosphatase B-Natriuretic Peptide 513 H Total Protein Albumin Urine Color Urine Appearance Urine pH Ur Specific [place] Urine Protein Urine Glucose (UA) Urine Ketones Urine Blood Urine Nitrite Ur Leukocyte Esterase COVID-19 (BOLIVAR) Negative COVID-19 Clin Com See Note 07/23/22 07/23/22 17:55 19:21 MCV MCH MCHC RDW Plt Count MPV Immature Gran % (Auto) Neut % (Auto) Lymph % (Auto) [place] % (Auto) Eos % (Auto) Baso % (Auto) Lymph # (Auto) [place] # (Auto) Eos # (Auto) Baso # (Auto) Abs Immat Gran (auto) Absolute Neuts (auto) Absolute Nucleated RBC Nucleated RBC % (auto) PT INR D-Dimer High Sensitivty Anion Gap Estim Creat Clear Calc Estimated GFR POC Glucose 108 Random Glucose Calcium Magnesium Total Bilirubin AST ALT Alkaline Phosphatase B-Natriuretic Peptide Total Protein Albumin Urine Color Yellow Urine Appearance Clear Urine pH 5.5 Ur Specific [place] >= 1.030 H Urine Protein Negative Urine Glucose (UA) Negative Urine Ketones Negative Urine Blood Negative Urine Nitrite Negative Ur Leukocyte Esterase Negative COVID-19 (BOLIVAR) COVID-19 Clin Com Imaging Radiologist's Impressions: Impressions Chest X-Ray 07/23/22 17:35 IMPRESSION: 1. Mildly hypoinflated lungs. No acute pulmonary process. Chest CTA 07/23/22 18:43 IMPRESSION: 1. No pulmonary emboli seen. 2. Marked reflux of contrast into the IVC and hepatic veins suggesting elevated right-sided heart pressures. 3. Incidentally noted 5 mm right upper lobe lung nodule which most likely needs no further follow-up. 2017 Fleischner Society Recommendations for Lung Nodule(s): Follow-Up based on size (average of long- and short-axis diameters). Use most suspicious nodule for followup. Single Solid low risk nodule < 6 mm: No routine follow-up imaging is recommended in low risk and high risk patients. These guidelines do not apply to patients younger than 35 years, immunocompromised patients, and patients with cancer. F/u in patients with significant comorbidities as clinically warranted. For lung cancer screening, adhere to Lung-RADS guidelines. Reference: Radiology. 2017 May; 284(1):228-243 VTE: negative Assessment and Plan (1) Atrial fibrillation: Status: Acute Plan 66-year-old female with history of JIMBO on CPAP, mild intermittent asthma, hypertension, hyperlipidemia, depression, post-COVID MENDOZA and chest pain, and morbid obesity with BMI greater than 61 admitted for new onset atrial fibrillation with RVR. 1- New onset atrial fibrillation with RVR -EKG in Dr. Aldridge office and ED with atrial fibrillation with rate 127 this afternoon -Given IV bolus metorpolol and diltiazem x 2 with ongoing RVR HR 120-130. Cardiazem drip initiated. Continue per protocol -ED discussed with cardiology. Continue heparin per protocol for anticoagulation -Cardiology consulted. Echo ordered -Admit to tele 2- Post covid syndrome with mendoza and anterior chest pressure since COVID-19 dx May 2022 -EKG with nonspecific t wave abnormality. Negative troponin -CXR with hypoventilation, no other acute abnormality -Albuterol prn 3-Mild persistent asthma -Continue qvar -Albuterol prn 4-HTN- controlled -On cardizem drip -Hold home valsartan [id number] -Continue paroxetine DVT prophylaxis- heparin Full code Pt requires inpt stay of at least 2 midnights for new onset atrial fibrillation with RVR requiring IV titration of rate control medication and ongoing monitoring. Quality Stroke Does the patient have a stroke diagnosis?: No VTE Prior VTE?: No VTE Risk Level:: Medical - moderate - high VTE Device Contraindication: Treatment Not Indicated VTE Drug Contraindication: N/A - Med Ordered
[2022-07-23 21:05] VITALS: BP 121/84; PULSE 135
[2022-07-23 21:27] LABS: Partial Thromboplastin Time 31.1 SEC (26.0-36.4)
[2022-07-23 22:32] LABS: Hematocrit 41.4 % (37.0-47.0); Hemoglobin 13.7 g/dl (12.0-16.0); Mean Corpuscular HGB Conc 33.1 g/dl (31.0-35.0); Mean Corpuscular Hemoglobin 29.4 pg (27.0-33.0); Mean Corpuscular Volume 88.8 fL (80.0-98.0); Mean Platelet Volume 11.1 fL (9.4-12.3); Platelet Count 265 X10*3/uL (160-400); Red Blood Count 4.66 X10*6/uL (4.20-5.50); Red Cell Distribution Width 13.7 % (11.0-16.0); White Blood Count 8.1 X10*3/uL (4.8-10.8)
[2022-07-23 22:38] LABS: INTERNATIONAL NORM RATIO 1.1 (0.9-1.1); Prothrombin Time 12.2 SEC (10.0-13.1)
[2022-07-23 22:40] LABS: PTT Heparin Drip 32.2 SEC (53-77.9)
[2022-07-23 23:04] LABS: Thyroid Stimulating Hormone 1.51 uIU/mL (0.32-4.0)
[2022-07-23] MEDS: Furosemide 40 MG/4 ML VIAL IVPUSH (23:31)
[2022-07-24] VITALS (12 sets, daily range): BP systolic 102–143; BP diastolic 57–105; PULSE 83–139; RESP 13–20; TEMP 36.4–37; O2SAT 92–98
[2022-07-24 03:34] LABS: PTT Heparin Drip 34.6 SEC (53-77.9)
[2022-07-24] MEDS: Heparin Sodium,Porcine 5,000 UNIT/ML VIAL 10000 UNIT IVPUSH (04:05)
[2022-07-24] MEDS: dilTIAZem HCL 125 MG in 0.9 % Sodium Chloride 100 ML 15 MG IVCONT ×3 (05:44→19:58)
[2022-07-24 06:53] LABS: INTERNATIONAL NORM RATIO 1.1 (0.9-1.1); Prothrombin Time 12.8 SEC (10.0-13.1)
--- NOTE | 2022-07-24 07:00 | CA_ITS ---
Transthoracic Echocardiogram Patient (Last, First, Middle): Gabriela Hernandez, Gender: Female Date of : 1955 Age: 66 Procedure Date: 07/24/2022 Procedure Type: Transthoracic Echocardiogram Location: ER Height: 160.02 cm Weight: 156.04 kg BSA: 2.44 m2 Heart Rate: bpm BP: 114 / 82 mmHg Inspecting Engineer: LELA Referring MD: Idalmis ARAIZA Symptoms: new onset afib with rvr Study Quality: Technically Difficult/contrast Conclusions: - Normal left ventricular size and systolic function. The visually estimated ejection fraction is between 55-60%. - Mildly increased right ventricular cavity size. There is normal right ventricular systolic function. - The left atrium is severely dilated. - There is mild dilatation of the ascending aorta measuring 4.00 cm. Findings Procedure Information Contrast agent, definity, is being given per protocol without apparent complications. Left Ventricle Normal left ventricular size and systolic function. The visually estimated ejection fraction is between 55-60%. There is no evidence of regional wall motion abnormalities. Diastolic function is indeterminate on the basis of available data. Right Ventricle Mildly increased right ventricular cavity size. There is normal right ventricular systolic function. Atria The left atrium is severely dilated. The right atrium is normal in size. Aortic Valve The aortic valve was not well visualized. There is mild calcification of the aortic valve. There is no aortic valve stenosis. There is no aortic valve regurgitation. Mitral Valve The mitral valve appears normal. There is trace mitral valve regurgitation. There is no mitral valve stenosis. Pulmonic Valve The pulmonic valve was not well visualized. Tricuspid Valve Significantly elevated right atrial pressure. There is no evidence of pulmonary hypertension. Great Vessels There is mild dilatation of the ascending aorta measuring 4.00 cm. The visualized portions of the pulmonary artery and branches are normal. Venous The inferior vena cava is dilated and collapses less than 50% with inspiration. Pericardium/Pleural There is no evidence of pericardial effusion. Measurements 2D Linear Measurements LVOT Diam: 2.20 3.0+(-)1.3 cm Mitral Valve MV Pk E: 1.00 MV Decel Time: 156.00 E'Lateral: 10.20 E'Medial: 6.83 E/E' Med: 14.60 E/E' Lat: 9.80 PHT: 46.00 MVA PHT: 4.78 Decel Phillips: 7.17 Aortic Valve AoV Pk Saran: 1.23 AoV Mn Saran: 0.87 AoV VTI: 0.23 AoV Pk Grad: 6.00 Aov Mn Grad: 3.00 PATRICIA Cont.VTI: 2.43 LVOT LVOT Pk Saran: 0.83 LVOT Mn Saran: 0.56 LVOT VTI: 0.15 LVOT Pk Grad: 3.00 LVOT Mn Grad: 2.00 LVOT Diam: 2.20 LVOT Area: 3.80 Diastolic Function MV Pk E: 1.00 E'Medial: 6.83 E/E' Med: 14.60 E' Laterial: 10.20 E/E' Lat: 9.80 Right Ventricle TAPSE (mm): 16.30 Tricuspid Valve TR Pk Saran: 1.93 TR Pk Grad: 15.00 RA Press: 15.00 RVSP: 30.00 Great Vessels Aorta Ao Asc: 4.00 2.1-3.4 cm Updated in Other Vendor System with Status of Final Jaime Clifford MD electronically signed on 07/24/2022 11:32:44 AM with status of Final
[2022-07-24 07:18] LABS: B Type Natriuretic Peptide 297 pg/mL (<100)
[2022-07-24 08:14] LABS: Hematocrit 37.8 % (37.0-47.0); Hemoglobin 12.7 g/dl (12.0-16.0); Mean Corpuscular HGB Conc 33.6 g/dl (31.0-35.0); Mean Corpuscular Hemoglobin 29.7 pg (27.0-33.0); Mean Corpuscular Volume 88.3 fL (80.0-98.0); Mean Platelet Volume 10.9 fL (9.4-12.3); Platelet Count 237 X10*3/uL (160-400); Red Blood Count 4.28 X10*6/uL (4.20-5.50); Red Cell Distribution Width 13.7 % (11.0-16.0); White Blood Count 7.6 X10*3/uL (4.8-10.8)
[2022-07-24 08:21] LABS: PTT Heparin Drip 128.5 SEC (53-77.9)
--- NOTE | 2022-07-24 08:24 | PC.NURSE ---
TC sent to [facility] r/t critical PTT-HD of 128.5
[2022-07-24 08:45] LABS: Anion Gap 15 (12-20); Blood Urea Nitrogen 16 mg/dL (9-16); Calcium 8.8 mg/dL (8.4-10.2); Carbon Dioxide 28 mmol/L (22-29); Chloride 105 mmol/L (96-108); Creatinine Clr Calc Pharmacy 119.1; Estimated Glomerular Filt Rate > 60; Glucose Random 134 mg/dL (60-115); Potassium 3.3 mmol/L (3.3-5.1); Sodium 145 mmol/L (135-145)
--- NOTE | 2022-07-24 08:46 | PC.NURSE ---
informed pharmacy of critical PTT - HD at 128.5 - stopped gtt per protocol. Q1h ptt-hd until ptt-hd is below 93
[2022-07-24 10:04] LABS: PTT Heparin Drip 56.7 SEC (53-77.9)
--- NOTE | 2022-07-24 10:05 | PM.CNCAR ---
History of Present Illness History of Present Illness Date of Service: 07/24/22 Requesting physician: Ni Lopez Chief complaint: new onset afib. CHF Narrative: Pleasant 66 year female who is presenting with dyspnea and AFib with RVR. In May 2022 she was diagnosed with COVID-19 infection. She said she was treated for couple of weeks and did not have any significant lung issues but started developing shortness of breath afterwards. This was progressive and she also felt some palpitations off and on. Her symptoms worsen and she decided to come to the hospital. She was noted to be in AFib with RVR. She was also noted to be in congestive heart failure and was diuresed. She was complaining of pressure-like feeling in her chest off and on with ambulation also. This is a new symptom for her. She has history of COPD but does not get chest tightness and has not been oxygen dependent previously. No bleeding issues in the past. No known history of coronary disease. [facility] Past Medical History Medical History (Updated 07/24/22 @ 14:29 by Jaime Clifford MD) Bronchial asthma HTN (hypertension) MDD (major depressive disorder) Morbid obesity JIMBO on CPAP Post covid-19 condition, unspecified Social History Social History Advance Directives: No Advance Directives Information Provided: No Meds Allergies Allergy/AdvReac Type Severity Reaction Status Date / Time adhesive tape [ADHESIVE TAPE] Allergy Intermediate BLISTERS Verified 07/23/22 15:06 Active Medications: Current Medications Fluticasone Propionate (Fluticasone Propionate 100 Mcg Blst.W.Dev) 1 puff INHALE Q12H CANDY Last Admin: 07/23/22 23:14 Dose: Not Given Furosemide (Furosemide 40 Mg/4 Ml Vial) 40 mg IVPUSH DAILY CANDY; Protocol Last Admin: 07/23/22 23:31 Dose: 40 mg Heparin Sodium (Porcine) (Heparin Sodium,Porcine 5,000 Unit/Ml Vial) 6,300 unit 40 unit/kg (6300 unit) IVPUSH PROTOCOL BOLUS PRN; Protocol PRN Reason: 40 unit/kg - Heparin Protocol Heparin Sodium (Porcine) (Heparin Sodium,Porcine 5,000 Unit/Ml Vial) 10,000 unit IVPUSH PROTOCOL BOLUS PRN; Protocol PRN Reason: 80 unit/kg - Heparin Protocol Last Admin: 07/24/22 04:05 Dose: 10,000 unit Diltiazem HCl 125 mg/ Sodium (Chloride) 125 mls @ 0 mls/hr IVCONT .Q0M [facility]; Protocol Last Admin: 07/24/22 05:44 Dose: 15 mg/hr, 15 mls/hr Heparin Sodium/Sodium Chloride (Heparin Sodium,Porcine/1/2ns) 25,000 unit in 250 mls @ 0 mls/hr IVCONT .Q0M [facility]; Protocol Last Titration: 07/24/22 08:32 Dose: 0 units/kg/hr, 0 mls/hr Paroxetine HCl (Paroxetine Hcl 30 Mg Tablet) 45 mg PO DAILY [facility] Pharmacy Consult (Consult Rx Perform Med Rec) 1 each MISCELLANE ONCE PRN PRN Reason: Consult order Sodium Chloride (0.9 % Sodium Chloride Flush 3 Ml Syringe) 3 ml IVFLUSH QSHIFT [facility] Last Admin: 07/24/22 08:04 Dose: Not Given Home Medications Medication Instructions Recorded Confirmed Last Taken Type paroxetine HCl 30 mg tablet 45 mg PO DAILY 10/01/20 07/23/22 07/23/22 History valsartan 320 mg tablet 320 mg PO DAILY 07/23/22 07/23/22 07/23/22 History Physical Exam Vital Signs: Vital Signs: Last Vital Signs Temp 98.5 F 07/23/22 16:10 Pulse 107 H 07/24/22 09:20 Resp 13 07/24/22 09:20 BP 117/57 L 07/24/22 09:20 Pulse Ox 94 07/24/22 09:20 O2 Del Method 07/24/22 09:20 O2 Flow Rate 2 07/24/22 09:20 BMI result Body Mass Index 61.0 GENERAL APPEARANCE: in no acute distress, pleasant. NECK: no carotid bruit, elevated JVD. SKIN: no suspicious lesions, warm and dry. HEART: no murmurs, irregularly irregular rhythm. LUNGS: clear to auscultation bilaterally. ABDOMEN: soft, nontender. EXTREMITIES: no edema. PERIPHERAL PULSES: equal. NEUROLOGIC: No gross deficits, AAO X 3 Objective Labs and Meds Result diagrams: 07/24/22 08:03 07/24/22 08:03 Lab results: Laboratory Results - last 24 hr 07/23/22 07/23/22 07/23/22 17:00 17:00 17:00 WBC 9.6 RBC 4.49 Hgb 13.3 Hct 39.7 MCV 88.4 MCH 29.6 MCHC 33.5 RDW 13.7 Plt Count 286 D MPV 11.1 Immature Gran % (Auto) 0.3 Neut % (Auto) 69.5 Lymph % (Auto) 21.2 [place] % (Auto) 7.9 Eos % (Auto) 0.8 Baso % (Auto) 0.3 Lymph # (Auto) 2.0 [place] # (Auto) 0.8 Eos # (Auto) 0.1 Baso # (Auto) 0.0 Abs Immat Gran (auto) 0.03 Absolute Neuts (auto) 6.7 Absolute Nucleated RBC 0.000 Nucleated RBC % (auto) 0.0 PT INR APTT 31.1 aPTT Heparin Protocol D-Dimer High Sensitivty 383 Sodium 144 Potassium 4.1 Chloride 105 Carbon Dioxide 28 Anion Gap 15 BUN 22 H D Creatinine 0.74 Estim Creat Clear Calc 11.1 Estimated GFR > 60 POC Glucose Random Glucose 132 H Calcium 8.9 Magnesium 1.8 Total Bilirubin 1.3 H AST 17 ALT 23 Alkaline Phosphatase 80 Troponin I High Sens B-Natriuretic Peptide Total Protein 6.1 L Albumin 3.5 TSH Urine Color Urine Appearance Urine pH Ur Specific [place] Urine Protein Urine Glucose (UA) Urine Ketones Urine Blood Urine Nitrite Ur Leukocyte Esterase COVID-19 ([facility]) COVID-19 Clin Com 07/23/22 07/23/22 07/23/22 17:00 17:00 17:00 WBC RBC Hgb Hct MCV MCH MCHC RDW Plt Count MPV Immature Gran % (Auto) Neut % (Auto) Lymph % (Auto) [place] % (Auto) Eos % (Auto) Baso % (Auto) Lymph # (Auto) [place] # (Auto) Eos # (Auto) Baso # (Auto) Abs Immat Gran (auto) Absolute Neuts (auto) Absolute Nucleated RBC Nucleated RBC % (auto) PT INR APTT aPTT Heparin Protocol D-Dimer High Sensitivty Sodium Potassium Chloride Carbon Dioxide Anion Gap BUN Creatinine Estim Creat Clear Calc Estimated GFR POC Glucose Random Glucose Calcium Magnesium Total Bilirubin AST ALT Alkaline Phosphatase Troponin I High Sens < 3.5 D B-Natriuretic Peptide 513 H Total Protein Albumin TSH Urine Color Urine Appearance Urine pH Ur Specific [place] Urine Protein Urine Glucose (UA) Urine Ketones Urine Blood Urine Nitrite Ur Leukocyte Esterase COVID-19 ([facility]) Negative COVID-19 Clin Com See Note 07/23/22 07/23/22 07/23/22 17:00 17:55 19:21 WBC RBC Hgb Hct MCV MCH MCHC RDW Plt Count MPV Immature Gran % (Auto) Neut % (Auto) Lymph % (Auto) [place] % (Auto) Eos % (Auto) Baso % (Auto) Lymph # (Auto) [place] # (Auto) Eos # (Auto) Baso # (Auto) Abs Immat Gran (auto) Absolute Neuts (auto) Absolute Nucleated RBC Nucleated RBC % (auto) PT 12.9 INR 1.1 APTT aPTT Heparin Protocol D-Dimer High Sensitivty Sodium Potassium Chloride Carbon Dioxide Anion Gap BUN Creatinine Estim Creat Clear Calc Estimated GFR POC Glucose 108 Random Glucose Calcium Magnesium Total Bilirubin AST ALT Alkaline Phosphatase Troponin I High Sens B-Natriuretic Peptide Total Protein Albumin TSH Urine Color Yellow Urine Appearance Clear Urine pH 5.5 Ur Specific [place] >= 1.030 H Urine Protein Negative Urine Glucose (UA) Negative Urine Ketones Negative Urine Blood Negative Urine Nitrite Negative Ur Leukocyte Esterase Negative COVID-19 ([facility]) COVID-19 Clin Com 07/23/22 07/23/22 07/23/22 22:15 22:16 22:16 WBC 8.1 RBC 4.66 Hgb 13.7 Hct 41.4 MCV 88.8 MCH 29.4 MCHC 33.1 RDW 13.7 Plt Count 265 MPV 11.1 Immature Gran % (Auto) Neut % (Auto) Lymph % (Auto) [place] % (Auto) Eos % (Auto) Baso % (Auto) Lymph # (Auto) [place] # (Auto) Eos # (Auto) Baso # (Auto) Abs Immat Gran (auto) Absolute Neuts (auto) Absolute Nucleated RBC 0.000 Nucleated RBC % (auto) 0.0 PT 12.2 INR 1.1 APTT aPTT Heparin Protocol 32.2 L D-Dimer High Sensitivty Sodium Potassium Chloride Carbon Dioxide Anion Gap BUN Creatinine Estim Creat Clear Calc Estimated GFR POC Glucose Random Glucose Calcium Magnesium Total Bilirubin AST ALT Alkaline Phosphatase Troponin I High Sens B-Natriuretic Peptide Total Protein Albumin TSH 1.51 Urine Color Urine Appearance Urine pH Ur Specific [place] Urine Protein Urine Glucose (UA) Urine Ketones Urine Blood Urine Nitrite Ur Leukocyte Esterase COVID-19 ([facility]) COVID-19 Clin Com 07/24/22 07/24/22 07/24/22 03:06 05:52 05:52 WBC RBC Hgb Hct MCV MCH MCHC RDW Plt Count MPV Immature Gran % (Auto) Neut % (Auto) Lymph % (Auto) [place] % (Auto) Eos % (Auto) Baso % (Auto) Lymph # (Auto) [place] # (Auto) Eos # (Auto) Baso # (Auto) Abs Immat Gran (auto) Absolute Neuts (auto) Absolute Nucleated RBC Nucleated RBC % (auto) PT 12.8 INR 1.1 APTT aPTT Heparin Protocol 34.6 L D-Dimer High Sensitivty Sodium Potassium Chloride Carbon Dioxide Anion Gap BUN Creatinine Estim Creat Clear Calc Estimated GFR POC Glucose Random Glucose Calcium Magnesium Total Bilirubin AST ALT Alkaline Phosphatase Troponin I High Sens B-Natriuretic Peptide 297 H Total Protein Albumin TSH Urine Color Urine Appearance Urine pH Ur Specific [place] Urine Protein Urine Glucose (UA) Urine Ketones Urine Blood Urine Nitrite Ur Leukocyte Esterase COVID-19 ([facility]) COVID-19 Clin Com 07/24/22 07/24/22 07/24/22 07:44 08:03 08:03 WBC 7.6 RBC 4.28 Hgb 12.7 Hct 37.8 MCV 88.3 MCH 29.7 MCHC 33.6 RDW 13.7 Plt Count 237 MPV 10.9 Immature Gran % (Auto) Neut % (Auto) Lymph % (Auto) [place] % (Auto) Eos % (Auto) Baso % (Auto) Lymph # (Auto) [place] # (Auto) Eos # (Auto) Baso # (Auto) Abs Immat Gran (auto) Absolute Neuts (auto) Absolute Nucleated RBC 0.000 Nucleated RBC % (auto) 0.0 PT INR APTT aPTT Heparin Protocol 128.5 H* D D-Dimer High Sensitivty Sodium 145 Potassium 3.3 Chloride 105 Carbon Dioxide 28 Anion Gap 15 BUN 16 Creatinine 0.68 Estim Creat Clear Calc 119.1 Estimated GFR > 60 POC Glucose Random Glucose 134 H Calcium 8.8 Magnesium Total Bilirubin AST ALT Alkaline Phosphatase Troponin I High Sens B-Natriuretic Peptide Total Protein Albumin TSH Urine Color Urine Appearance Urine pH Ur Specific [place] Urine Protein Urine Glucose (UA) Urine Ketones Urine Blood Urine Nitrite Ur Leukocyte Esterase COVID-19 ([facility]) COVID-19 Clin Com Imaging Radiologist's impression: Impressions Chest X-Ray 07/23/22 17:35 IMPRESSION: 1. Mildly hypoinflated lungs. No acute pulmonary process. Chest CTA 07/23/22 18:43 IMPRESSION: 1. No pulmonary emboli seen. 2. Marked reflux of contrast into the IVC and hepatic veins suggesting elevated right-sided heart pressures. 3. Incidentally noted 5 mm right upper lobe lung nodule which most likely needs no further follow-up. 2017 Fleischner Society Recommendations for Lung Nodule(s): Follow-Up based on size (average of long- and short-axis diameters). Use most suspicious nodule for followup. Single Solid low risk nodule < 6 mm: No routine follow-up imaging is recommended in low risk and high risk patients. These guidelines do not apply to patients younger than 35 years, immunocompromised patients, and patients with cancer. F/u in patients with significant comorbidities as clinically warranted. For lung cancer screening, adhere to Lung-RADS guidelines. Reference: Radiology. 2017 [place]non; 284(1):228-243 VTE: negative Assessment and Plan (1) Atrial fibrillation: Status: Acute (2) CHF (congestive heart failure): Status: Acute Plan 66-year-old female who is presenting for AFib with RVR and dyspnea. Clinically she is mildly overloaded. She has been already on diuretics and feeling better. She is on Cardizem 15 milligram/hour. Echocardiography is showing normal biventricular function. I think Cardizem can be continued. She has severely dilated left atrium. I think she has been in atrial fibrillation for long time. May be difficult to break atrial fibrillation with cardioversion. I am loading her with amiodarone 400 mg 3 times a day. If her heart rate starts lying down with amiodarone in addition then Cardizem can be weaned back. Please do not give any atenolol or beta-issac in addition to these medications because then we are risking bradycardia and heart block. Keep NPO after midnight for potential [place] cardioversion tomorrow. Continue IV diuretics. Thank you for allowing me to participate in the care of your patient. Please feel free to contact me if you have any questions. Procedures Date of Service Date of Service: 07/24/22
--- NOTE | 2022-07-24 10:06 | MHC.CM.PN ---
Attempted to meet with patient in regards to discharge planning. Echo currently being performed. Will attempt to meet again.
[2022-07-24] MEDS: PARoxetine HCL 30 MG TABLET 45 MG PO (11:18)
--- NOTE | 2022-07-24 11:31 | HO.PM.IMPN ---
Subjective Subjective Date of Service: 07/24/22 Interval History: seen and examined this morning Follow-up for new onset atrial fibrillation Patient reports dyspnea on exertion, palpitations, intermittent chest tightness. started on Cardizem drip overnight, heart rate improving no chest pain at this time Review of Systems Review of Systems: Yes all other systems are reviewed and are negative Constitutional Constitutional: Denies chills and Reports fever(s) ENT Ears, Nose, Mouth, and Throat: Denies dizziness Cardiovascular Cardiovascular: Reports palpitations and Reports dyspnea on exertion Respiratory Respiratory: Denies cough and Reports dyspnea on exertion Gastrointestinal Gastrointestinal: Denies abdominal pain, Denies nausea and Denies vomiting Neurologic Neurologic: Denies dizziness Endocrine Endocrine: Reports palpitations Physical Exam Vital Signs: Vital Signs: Last Vital Signs Temp 98.5 F 07/23/22 16:10 Pulse 107 H 07/24/22 09:20 Resp 13 07/24/22 09:20 BP 117/57 L 07/24/22 09:20 Pulse Ox 94 07/24/22 09:20 O2 Del Method 07/24/22 09:20 O2 Flow Rate 2 07/24/22 09:20 BMI result Body Mass Index 61.0 Const: General: cooperative, comfortable, alert and awake Nutritional Appearance: obese Orientation/consciousness: patient oriented x3 Resp: Effort & Inspection: normal respiratory effort and able to speak in complete sentences Cardio: Other: irregularly irregular Rate: tachycardic GI: Inspection: No distended and Yes obesity Palpation (GI): Soft to palpation and nontender Neuro: Other: grossly nonfocal General: patient oriented x3 Extrem: General: Yes no pedal edema Objective Data Active Medications Fluticasone Propionate (Fluticasone Propionate 100 Mcg Blst.W.Dev) 1 puff INHALE Q12H [facility] Last Admin: 07/24/22 10:31 Dose: Not Given Documented By: JAMIR Non-Admin Reason: Med Not Available Furosemide (Furosemide 40 Mg/4 Ml Vial) 40 mg IVPUSH BID@0900,1800 [facility]; Protocol Heparin Sodium (Porcine) (Heparin Sodium,Porcine 5,000 Unit/Ml Vial) 6,300 unit 40 unit/kg (6300 unit) IVPUSH PROTOCOL BOLUS PRN; Protocol PRN Reason: 40 unit/kg - Heparin Protocol Heparin Sodium (Porcine) (Heparin Sodium,Porcine 5,000 Unit/Ml Vial) 10,000 unit IVPUSH PROTOCOL BOLUS PRN; Protocol PRN Reason: 80 unit/kg - Heparin Protocol Last Admin: 07/24/22 04:05 Dose: 10,000 unit Documented By: JACK Diltiazem HCl 125 mg/ Sodium (Chloride) 125 mls @ 0 mls/hr IVCONT .Q0M [facility]; Protocol Last Admin: 07/24/22 05:44 Dose: 15 mg/hr, 15 mls/hr Documented By: JACK Heparin Sodium/Sodium Chloride (Heparin Sodium,Porcine/1/2ns) 25,000 unit in 250 mls @ 0 mls/hr IVCONT .Q0M [facility]; Protocol Last Titration: 07/24/22 10:26 Dose: 8 units/kg/hr, 12.51 mls/hr Documented By: JAMIR Co-signed By: DERRICK Paroxetine HCl (Paroxetine Hcl 30 Mg Tablet) 45 mg PO DAILY [facility] Last Admin: 07/24/22 11:18 Dose: 45 mg Documented By: AMADOU Pharmacy Consult (Consult Rx Perform Med Rec) 1 each MISCELLANE ONCE PRN PRN Reason: Consult order Sodium Chloride (0.9 % Sodium Chloride Flush 3 Ml Syringe) 3 ml IVFLUSH QSHIFT [facility] Last Admin: 07/24/22 08:04 Dose: Not Given Documented By: JAMIR Non-Admin Reason: IV Running Labs CBC & Chem 7: 07/24/22 08:03 07/24/22 08:03 Labs: Laboratory Results - last 24 hr 07/23/22 07/23/22 07/23/22 17:00 17:00 17:00 MCV 88.4 MCH 29.6 MCHC 33.5 RDW 13.7 Plt Count 286 D MPV 11.1 Immature Gran % (Auto) 0.3 Neut % (Auto) 69.5 Lymph % (Auto) 21.2 [place] % (Auto) 7.9 Eos % (Auto) 0.8 Baso % (Auto) 0.3 Lymph # (Auto) 2.0 [place] # (Auto) 0.8 Eos # (Auto) 0.1 Baso # (Auto) 0.0 Abs Immat Gran (auto) 0.03 Absolute Neuts (auto) 6.7 Absolute Nucleated RBC 0.000 Nucleated RBC % (auto) 0.0 PT INR APTT 31.1 aPTT Heparin Protocol D-Dimer High Sensitivty 383 Anion Gap 15 Estim Creat Clear Calc 11.1 Estimated GFR > 60 POC Glucose Random Glucose 132 H Calcium 8.9 Magnesium 1.8 Total Bilirubin 1.3 H AST 17 ALT 23 Alkaline Phosphatase 80 B-Natriuretic Peptide Total Protein 6.1 L Albumin 3.5 TSH Urine Color Urine Appearance Urine pH Ur Specific [place] Urine Protein Urine Glucose (UA) Urine Ketones Urine Blood Urine Nitrite Ur Leukocyte Esterase COVID-19 ([facility]) COVID-19 Clin Com 07/23/22 07/23/22 07/23/22 17:00 17:00 17:00 MCV MCH MCHC RDW Plt Count MPV Immature Gran % (Auto) Neut % (Auto) Lymph % (Auto) [place] % (Auto) Eos % (Auto) Baso % (Auto) Lymph # (Auto) [place] # (Auto) Eos # (Auto) Baso # (Auto) Abs Immat Gran (auto) Absolute Neuts (auto) Absolute Nucleated RBC Nucleated RBC % (auto) PT 12.9 INR 1.1 APTT aPTT Heparin Protocol D-Dimer High Sensitivty Anion Gap Estim Creat Clear Calc Estimated GFR POC Glucose Random Glucose Calcium Magnesium Total Bilirubin AST ALT Alkaline Phosphatase B-Natriuretic Peptide 513 H Total Protein Albumin TSH Urine Color Urine Appearance Urine pH Ur Specific [place] Urine Protein Urine Glucose (UA) Urine Ketones Urine Blood Urine Nitrite Ur Leukocyte Esterase COVID-19 ([facility]) Negative COVID-19 Clin Com See Note 07/23/22 07/23/22 07/23/22 17:55 19:21 22:15 MCV MCH MCHC RDW Plt Count MPV Immature Gran % (Auto) Neut % (Auto) Lymph % (Auto) [place] % (Auto) Eos % (Auto) Baso % (Auto) Lymph # (Auto) [place] # (Auto) Eos # (Auto) Baso # (Auto) Abs Immat Gran (auto) Absolute Neuts (auto) Absolute Nucleated RBC Nucleated RBC % (auto) PT INR APTT aPTT Heparin Protocol D-Dimer High Sensitivty Anion Gap Estim Creat Clear Calc Estimated GFR POC Glucose 108 Random Glucose Calcium Magnesium Total Bilirubin AST ALT Alkaline Phosphatase B-Natriuretic Peptide Total Protein Albumin TSH 1.51 Urine Color Yellow Urine Appearance Clear Urine pH 5.5 Ur Specific [place] >= 1.030 H Urine Protein Negative Urine Glucose (UA) Negative Urine Ketones Negative Urine Blood Negative Urine Nitrite Negative Ur Leukocyte Esterase Negative COVID-19 ([facility]) COVID-19 [facility] Com 07/23/22 07/23/22 07/24/22 22:16 22:16 03:06 MCV 88.8 MCH 29.4 MCHC 33.1 RDW 13.7 Plt Count 265 MPV 11.1 Immature Gran % (Auto) Neut % (Auto) Lymph % (Auto) [place] % (Auto) Eos % (Auto) Baso % (Auto) Lymph # (Auto) [place] # (Auto) Eos # (Auto) Baso # (Auto) Abs Immat Gran (auto) Absolute Neuts (auto) Absolute Nucleated RBC 0.000 Nucleated RBC % (auto) 0.0 PT 12.2 INR 1.1 APTT aPTT Heparin Protocol 32.2 L 34.6 L D-Dimer High Sensitivty Anion Gap Estim Creat Clear Calc Estimated GFR POC Glucose Random Glucose Calcium Magnesium Total Bilirubin AST ALT Alkaline Phosphatase B-Natriuretic Peptide Total Protein Albumin TSH Urine Color Urine Appearance Urine pH Ur Specific [place] Urine Protein Urine Glucose (UA) Urine Ketones Urine Blood Urine Nitrite Ur Leukocyte Esterase COVID-19 ([facility]) COVID-19 [facility] 07/24/22 07/24/22 07/24/22 05:52 05:52 07:44 MCV MCH MCHC RDW Plt Count MPV Immature Gran % (Auto) Neut % (Auto) Lymph % (Auto) [place] % (Auto) Eos % (Auto) Baso % (Auto) Lymph # (Auto) [place] # (Auto) Eos # (Auto) Baso # (Auto) Abs Immat Gran (auto) Absolute Neuts (auto) Absolute Nucleated RBC Nucleated RBC % (auto) PT 12.8 INR 1.1 APTT aPTT Heparin Protocol 128.5 H* D D-Dimer High Sensitivty Anion Gap Estim Creat Clear Calc Estimated GFR POC Glucose Random Glucose Calcium Magnesium Total Bilirubin AST ALT Alkaline Phosphatase B-Natriuretic Peptide 297 H Total Protein Albumin TSH Urine Color Urine Appearance Urine pH Ur Specific [place] Urine Protein Urine Glucose (UA) Urine Ketones Urine Blood Urine Nitrite Ur Leukocyte Esterase COVID-19 ([facility]) COVID-19 Clin Com 07/24/22 07/24/22 07/24/22 08:03 08:03 09:16 MCV 88.3 MCH 29.7 MCHC 33.6 RDW 13.7 Plt Count 237 MPV 10.9 Immature Gran % (Auto) Neut % (Auto) Lymph % (Auto) [place] % (Auto) Eos % (Auto) Baso % (Auto) Lymph # (Auto) [place] # (Auto) Eos # (Auto) Baso # (Auto) Abs Immat Gran (auto) Absolute Neuts (auto) Absolute Nucleated RBC 0.000 Nucleated RBC % (auto) 0.0 PT INR APTT aPTT Heparin Protocol 56.7 D D-Dimer High Sensitivty Anion Gap 15 Estim Creat Clear Calc 119.1 Estimated GFR > 60 POC Glucose Random Glucose 134 H Calcium 8.8 Magnesium Total Bilirubin AST ALT Alkaline Phosphatase B-Natriuretic Peptide Total Protein Albumin TSH Urine Color Urine Appearance Urine pH Ur Specific [place] Urine Protein Urine Glucose (UA) Urine Ketones Urine Blood Urine Nitrite Ur Leukocyte Esterase COVID-19 ([facility]) COVID-19 Clin Com Assessment and Plan (1) Atrial fibrillation: Status: Acute (2) JIMBO on CPAP: Status: Acute Plan 66-year-old female with history of JIMBO on CPAP, mild intermittent asthma, hypertension, hyperlipidemia, depression, post-COVID CHRISTIANSEN and chest pain, and morbid obesity with BMI greater than 61 admitted for new onset atrial fibrillation with RVR. New onset atrial fibrillation with RVR. HR remains uncontrolled -continue Cardiazem drip -elevated [id number] score - continue heparin for now -Cardiology consut pending -Echo pending Acute heart failure, not specified ?right heart failure possibly precipitated by rapid afib -continue IV lasix -cardiology consult pending -echo pending Mild persistent asthma -Continue qvar -Albuterol prn HTN- controlled -On cardizem drip -Hold home valsartan Depression-stable -Continue paroxetine JIMBO continue cpap Right lung nodule - seen on CTA -will need outpatient follow up DVT prophylaxis- heparin Full code attending - dr. bishop patient requires ongoing inpatient hospitalization for management of new onset atrial fibrillation with rapid ventricular response. Quality Stroke Does the patient have a stroke diagnosis?: No VTE Prior VTE?: No VTE Risk Level:: Medical - moderate - high VTE Device Contraindication: Treatment Not Indicated VTE Drug Contraindication: N/A - Med Ordered
[2022-07-24] MEDS: Amiodarone HCL 200 MG TABLET 400 MG PO ×2 (14:51→21:25)
[2022-07-24] MEDS: Apixaban 5 MG TABLET PO ×2 (15:19→21:25)
[2022-07-24] MEDS: Furosemide 40 MG/4 ML VIAL IVPUSH (21:26)
[2022-07-24] MEDS: 0.9 % Sodium Chloride Flush 3 ML SYRINGE IVFLUSH (23:56)
[2022-07-25] VITALS (11 sets, daily range): BP systolic 94–134; BP diastolic 48–93; PULSE 58–109; RESP 17–20; TEMP 35.9–36.5; O2SAT 92–98; BMI 62.0; BMI 60.9
--- NOTE | 2022-07-25 | ECG_ITS ---
Test Reason : Post cardioversion Blood Pressure : / mmHG Vent. Rate : 060 BPM Atrial Rate : 060 BPM P-R Int : 184 ms QRS Dur : 092 ms QT Int : 408 ms P-R-T Axes : 019 004 140 degrees QTc Int : 408 ms Normal sinus rhythm Nonspecific T wave abnormality Cannot rule out Anterior infarct , age undetermined Abnormal ECG When compared with ECG of 23-JUL-2022 16:35, Sinus rhythm has replaced Atrial fibrillation Vent. rate has decreased BY 67 BPM Referred By: Jaime Clifford Electronically Signed By:LULI MC
--- NOTE | 2022-07-25 00:58 | PC.NURSE ---
Took over care of patient around 00:30. See charting or complete assessment. Pt resting in bed with eyes closed and cpap on. Cardizem drip infusing at 5mg/hr. No c/o pain/sob. Pt NPO. Call scott within reach and bed alarm on for safety. Will continue to monitor.
[2022-07-25 06:59] LABS: MANUAL DIFF FLAG NO
[2022-07-25 07:04] LABS: Basophils Percent Auto 0.4 % (0-2); Eosinophils Absolute Auto 0.2 X10*3/uL (0.0-0.4); Eosinophils Percent Auto 2.6 % (0-4); Hematocrit 37.8 % (37.0-47.0); Hemoglobin 12.4 g/dl (12.0-16.0); Imm Gran Abs Auto 0.02 X10*3/uL (0.00-0.03); Imm Gran Pct Auto 0.3 % (0.0-0.4); Lymphocytes Percent Auto 28.5 % (20-40); Mean Corpuscular HGB Conc 32.8 g/dl (31.0-35.0); Mean Corpuscular Volume 88.5 fL (80.0-98.0); Mean Platelet Volume 11.1 fL (9.4-12.3); Monocytes Absolute Auto 0.7 X10*3/uL (0.1-1.2); Monocytes Percent Auto 10.6 % (2-11); Neutrophils Percent Auto 57.6 % (45-73); Platelet Count 238 X10*3/uL (160-400); Red Blood Count 4.27 X10*6/uL (4.20-5.50); Red Cell Distribution Width 13.8 % (11.0-16.0); White Blood Count 6.9 X10*3/uL (4.8-10.8)
[2022-07-25 07:48] LABS: Anion Gap 18 (12-20); Blood Urea Nitrogen 16 mg/dL (9-16); Calcium 8.6 mg/dL (8.4-10.2); Carbon Dioxide 26 mmol/L (22-29); Chloride 102 mmol/L (96-108); Creatinine Clr Calc Pharmacy 116.9; Estimated Glomerular Filt Rate > 60; Glucose Random 117 mg/dL (60-115); Potassium 3.7 mmol/L (3.3-5.1); Sodium 142 mmol/L (135-145)
[2022-07-25] MEDS: Amiodarone HCL 200 MG TABLET 400 MG PO ×2 (10:03→20:32)
[2022-07-25] MEDS: 0.9 % Sodium Chloride Flush 3 ML SYRINGE IVFLUSH ×2 (10:04→20:35)
--- NOTE | 2022-07-25 10:05 | MHC.CM.PN ---
CM MET WITH PT AND AT BEDSIDE PT RESIDES AT HOME AND IS INDEPENDENT WITH CARE SHE DENIES HAVING HOME SERVICES AND USES A CPAP FOR DME PT REPORTS SHE HAS A HCP, COPY REQUESTED PT REPORTS SHE IS COVID VACCINATED AND HAS RECEIVED [employer] SHE IS ALSO COVID RECOVERED (MAY 2022) PCP: JANICE DECKER IMM DELIVERED CURRENT DC PLAN IS HOME WITH POSSIBLE [facility] REFERRAL REFERRAL MADE TO [facility] TO TRANSPORT
--- NOTE | 2022-07-25 13:58 | P.PNIM_ITS ---
Subjective Subjective Date of Service: 07/25/22 Interval History: Seen and examined this morning Follow-up for new onset atrial fibrillation with rapid ventricular response Plan for cardioversion this morning Patient denies any chest pain, palpitations, shortness of breath although she h as not been ambulating or moving around at all since admission Review of Systems Review of Systems: Yes all other systems are reviewed and are negative Constitutional Constitutional: Denies chills and Denies fever(s) ENT Ears, Nose, Mouth, and Throat: Denies dizziness Cardiovascular Cardiovascular: Denies chest pain, Denies palpitations and Denies dyspnea Respiratory Respiratory: Denies cough and Denies dyspnea Gastrointestinal Gastrointestinal: Denies abdominal pain and Denies nausea Neurologic Neurologic: Denies dizziness Endocrine Endocrine: Denies palpitations Physical Exam Vital Signs: Vital Signs: Last Vital Signs Temp 97.7 F 07/25/22 11:33 Pulse 99 07/25/22 11:33 Resp 20 07/25/22 11:33 BP 128/83 07/25/22 11:33 Pulse Ox 95 07/25/22 11:33 O2 Del Method 07/25/22 11:33 O2 Flow Rate 3 07/24/22 20:56 BMI result Body Mass Index 62.0 Const: General: cooperative, comfortable, alert and awake Nutritional Appearance: obese Orientation/consciousness: patient oriented x3 Resp: Effort & Inspection: normal respiratory effort and able to speak in complete sentences Cardio: Other: irregularly irregular Rate: tachycardic GI: Inspection: No distended and Yes obesity Palpation (GI): Soft to palpation and nontender Neuro: Other: grossly nonfocal General: patient oriented x3 Extrem: General: Yes no pedal edema Objective Data Active Medications Amiodarone HCl (Amiodarone Hcl 200 Mg Tablet) 400 mg PO TID [facility] Last Admin: 07/25/22 10:03 Dose: 400 mg Documented By: RUTHANN Apixaban (Apixaban 5 Mg Tablet) 5 mg PO BID [facility] Last Admin: 07/25/22 10:05 Dose: Not Given Documented By: RUTHANN Non-Admin Reason: NPO Fluticasone Propionate (Fluticasone Propionate 100 Mcg Blst.W.Dev) 1 puff INHALE RBID [facility] Furosemide (Furosemide 40 Mg/4 Ml Vial) 40 mg IVPUSH BID@0900,1800 [facility]; Protocol Last Admin: 07/25/22 10:05 Dose: Not Given Documented By: RUTHANN Non-Admin Reason: NPO Diltiazem HCl 125 mg/ Sodium (Chloride) 125 mls @ 0 mls/hr IVCONT .Q0M [facility]; Protocol Last Titration: 07/25/22 13:27 Dose: 15 mg/hr, 15 mls/hr Documented By: RUTHANN Paroxetine HCl (Paroxetine Hcl 30 Mg Tablet) 45 mg PO DAILY [facility] Last Admin: 07/25/22 10:05 Dose: Not Given Documented By: RUTHANN Non-Admin Reason: NPO Pharmacy Consult (Consult Rx Perform Med Rec) 1 each MISCELLANE ONCE PRN PRN Reason: Consult order Sodium Chloride (0.9 % Sodium Chloride Flush 3 Ml Syringe) 3 ml IVFLUSH QSHIFT [facility] Last Admin: 07/25/22 10:04 Dose: 3 ml Documented By: RUTHANN Labs CBC & Chem 7: 07/25/22 06:20 07/25/22 06:20 Labs: Laboratory Results - last 24 hr 07/25/22 07/25/22 06:20 06:20 MCV 88.5 MCH 29.0 MCHC 32.8 RDW 13.8 Plt Count 238 MPV 11.1 Immature Gran % (Auto) 0.3 Neut % (Auto) 57.6 Lymph % (Auto) 28.5 [place] % (Auto) 10.6 Eos % (Auto) 2.6 Baso % (Auto) 0.4 Lymph # (Auto) 2.0 [place] # (Auto) 0.7 Eos # (Auto) 0.2 Baso # (Auto) 0.0 Abs Immat Gran (auto) 0.02 Absolute Neuts (auto) 4.0 Absolute Nucleated RBC 0.000 Nucleated RBC % (auto) 0.0 Anion Gap 18 Estim Creat Clear Calc 116.9 Estimated GFR > 60 Random Glucose 117 H Calcium 8.6 Assessment and Plan (1) CHF (congestive heart failure): Status: Acute (2) Atrial fibrillation: Status: Acute Plan 66-year-old female with history of JIMBO on CPAP, mild intermittent asthma, hypertension, hyperlipidemia, depression, post-COVID CHRISTIANSEN and chest pain, and morbid obesity with BMI greater than 61 admitted for new onset atrial fibrillation with RVR. New onset atrial fibrillation with RVR. HR remains uncontrolled -continue Cardiazem drip, amiodarone added by Cardiology -elevated [id number] score - initially treated with heparin, changed to eliquis -plan for cardioversion today Acute heart failure, not specified ?diastolic heart failure possibly precipitated by rapid afib echo showing preserved LVEF with severe dilatation of the left atrium -continue IV lasix -cardiology following Mild persistent asthma -Continue qvar -Albuterol prn HTN- controlled -On cardizem drip -Hold home valsartan Depression-stable -Continue paroxetine JMIBO continue cpap Right lung nodule - seen on CTA -will need outpatient follow up DVT prophylaxis- heparin Full code attending - dr. bishop patient requires ongoing inpatient hospitalization for management of new onset atrial fibrillation with rapid ventricular response. Quality Stroke Does the patient have a stroke diagnosis?: No VTE Prior VTE?: No VTE Risk Level:: Medical - moderate - high VTE Device Contraindication: Treatment Not Indicated VTE Drug Contraindication: N/A - Med Ordered
--- NOTE | 2022-07-25 13:59 | P.CONAN_ITS ---
HPI - Anesthesia Eval Consult details Narrative: 66yo female patient for CAMILLE, Cardioversion No eliquis today. Last dose yesterday evening PMFSH Active Problems Active Problems: All Active Problems (Updated 07/24/22 @ 14:29 by Jaime Clifford MD) CHF (congestive heart failure) (Acute) MDD (major depressive disorder) (Acute) HTN (hypertension) (Acute) Chest pain (Acute) Atrial fibrillation (Acute) CHRISTIANSEN (dyspnea on exertion) (Acute) Post covid-19 condition, unspecified (Acute) COVID-19 (Acute) Morbid obesity (Acute)- BMI 60.9 JIMBO on CPAP (Acute) Bronchial asthma (Acute)- Inhaler bid + rescue albuterol inhaler prn Past Medical History Medical History Bronchial asthma HTN (hypertension) MDD (major depressive disorder) Morbid obesity JIMBO on CPAP Post covid-19 condition, unspecified Family History Family history of problems with anesthesia: No Surgical History Surgical History (Updated 07/25/22 @ 15:26 by Any Romero MD) Anal fistula H/O colonoscopy H/O umbilical hernia repair History of cholecystectomy History of hysterectomy for cancer Hx of laparoscopic gastric banding History of Problems with Anesthesia: Yes (See above. Surgery for gall bladder was in the 1980s. No problems with anesthesia since) Social History Social History Household Members: Spouse Housing: House Do you presently have visiting nurse or other home services: No Patient Tobacco Use Status: Former Tobacco user Quit Date: 1992 Tobacco use type: Cigarette Years Smoked: 25 Second Hand Smoke Exposure: No service: No Current occupational status: unemployed Meds Allergies Allergy/AdvReac Type Severity Reaction Status Date / Time adhesive tape [ADHESIVE TAPE] Allergy Intermediate BLISTERS Verified 07/23/22 15:06 Active Medications: Current Medications Amiodarone HCl (Amiodarone Hcl 200 Mg Tablet) 400 mg PO TID [facility] Last Admin: 07/25/22 10:03 Dose: 400 mg Apixaban (Apixaban 5 Mg Tablet) 5 mg PO BID [facility] Last Admin: 07/25/22 10:05 Dose: Not Given Fluticasone Propionate (Fluticasone Propionate 100 Mcg Blst.W.Dev) 1 puff INHALE RBID [facility] Furosemide (Furosemide 40 Mg/4 Ml Vial) 40 mg IVPUSH BID@0900,1800 [facility]; Protocol Last Admin: 07/25/22 10:05 Dose: Not Given Diltiazem HCl 125 mg/ Sodium (Chloride) 125 mls @ 0 mls/hr IVCONT .Q0M [facility]; Protocol Last Titration: 07/25/22 13:27 Dose: 15 mg/hr, 15 mls/hr Paroxetine HCl (Paroxetine Hcl 30 Mg Tablet) 45 mg PO DAILY [facility] Last Admin: 07/25/22 10:05 Dose: Not Given Pharmacy Consult (Consult Rx Perform Med Rec) 1 each MISCELLANE ONCE PRN PRN Reason: Consult order Sodium Chloride (0.9 % Sodium Chloride Flush 3 Ml Syringe) 3 ml IVFLUSH QSHIFT [facility] Last Admin: 07/25/22 10:04 Dose: 3 ml Home Medications Medication Instructions Recorded Confirmed Last Taken Type paroxetine HCl 30 mg tablet 45 mg PO DAILY 10/01/20 07/23/22 07/23/22 History valsartan 320 mg tablet 320 mg PO DAILY 07/23/22 07/23/22 07/23/22 History Exam Exam Date and Time: July 25, 2022 1359 Height,Weight and Vital Signs: Height 5 ft 3 in Weight 158.9 kg Last Vital Signs Temp 97.7 F 07/25/22 11:33 Pulse 99 07/25/22 11:33 Resp 20 07/25/22 11:33 BP 128/83 07/25/22 11:33 Pulse Ox 95 07/25/22 11:33 O2 Del Method 07/25/22 11:33 O2 Flow Rate 3 07/24/22 20:56 Vital Signs Temp Pulse Resp BP Pulse Ox O2 Del Method O2 Flow Rate 07/25/22 13:55 97.5 F 106 H 18 124/78 95 Room Air 07/25/22 11:33 97.7 F 99 20 128/83 95 Room Air 07/25/22 07:42 96.8 F 100 20 134/93 H 93 Room Air 07/25/22 03:43 109 H 20 115/74 98 CPAP 07/24/22 23:04 130/75 07/24/22 23:00 98.6 F 108 H 18 139/105 H 98 Room Air 07/24/22 20:56 98.0 F 139 H 18 143/97 H 96 Nasal Cannula 3 07/24/22 20:17 117/83 07/24/22 20:17 118/68 07/24/22 16:00 97.5 F 83 16 109/76 96 Nasal Cannula 2 Pertinent Lab Results Pertinent Lab Results: Laboratory Tests 07/23/22 07/23/22 07/23/22 17:00 17:00 17:00 WBC 9.6 RBC 4.49 Hgb 13.3 Hct 39.7 MCV 88.4 MCH 29.6 MCHC 33.5 RDW 13.7 Plt Count 286 D MPV 11.1 Immature Gran % (Auto) 0.3 Neut % (Auto) 69.5 Lymph % (Auto) 21.2 [place] % (Auto) 7.9 Eos % (Auto) 0.8 Baso % (Auto) 0.3 Lymph # (Auto) 2.0 [place] # (Auto) 0.8 Eos # (Auto) 0.1 Baso # (Auto) 0.0 Abs Immat Gran (auto) 0.03 Absolute Neuts (auto) 6.7 Absolute Nucleated RBC 0.000 Nucleated RBC % (auto) 0.0 PT INR APTT 31.1 aPTT Heparin Protocol D-Dimer High Sensitivty 383 Sodium 144 Potassium 4.1 Chloride 105 Carbon Dioxide 28 Anion Gap 15 BUN 22 H D Creatinine 0.74 Estim Creat Clear Calc 11.1 Estimated GFR > 60 POC Glucose Random Glucose 132 H Calcium 8.9 Magnesium 1.8 Total Bilirubin 1.3 H AST 17 ALT 23 Alkaline Phosphatase 80 Troponin I High Sens B-Natriuretic Peptide Total Protein 6.1 L Albumin 3.5 TSH Urine Color Urine Appearance Urine pH Ur Specific Allison Urine Protein Urine Glucose (UA) Urine Ketones Urine Blood Urine Nitrite Ur Leukocyte Esterase COVID-19 ([facility]) COVID-19 Clin Com 07/23/22 07/23/22 07/23/22 17:00 17:00 17:00 WBC RBC Hgb Hct MCV MCH MCHC RDW Plt Count MPV Immature Gran % (Auto) Neut % (Auto) Lymph % (Auto) [place] % (Auto) Eos % (Auto) Baso % (Auto) Lymph # (Auto) [place] # (Auto) Eos # (Auto) Baso # (Auto) Abs Immat Gran (auto) Absolute Neuts (auto) Absolute Nucleated RBC Nucleated RBC % (auto) PT INR APTT aPTT Heparin Protocol D-Dimer High Sensitivty Sodium Potassium Chloride Carbon Dioxide Anion Gap BUN Creatinine Estim Creat Clear Calc Estimated GFR POC Glucose Random Glucose Calcium Magnesium Total Bilirubin AST ALT Alkaline Phosphatase Troponin I High Sens < 3.5 D B-Natriuretic Peptide 513 H Total Protein Albumin TSH Urine Color Urine Appearance Urine pH Ur Specific Allison Urine Protein Urine Glucose (UA) Urine Ketones Urine Blood Urine Nitrite Ur Leukocyte Esterase COVID-19 ([facility]) Negative COVID-19 Clin Com See Note 07/23/22 07/23/22 07/23/22 17:00 17:55 19:21 WBC RBC Hgb Hct MCV MCH MCHC RDW Plt Count MPV Immature Gran % (Auto) Neut % (Auto) Lymph % (Auto) [place] % (Auto) Eos % (Auto) Baso % (Auto) Lymph # (Auto) [place] # (Auto) Eos # (Auto) Baso # (Auto) Abs Immat Gran (auto) Absolute Neuts (auto) Absolute Nucleated RBC Nucleated RBC % (auto) PT 12.9 INR 1.1 APTT aPTT Heparin Protocol D-Dimer High Sensitivty Sodium Potassium Chloride Carbon Dioxide Anion Gap BUN Creatinine Estim Creat Clear Calc Estimated GFR POC Glucose 108 Random Glucose Calcium Magnesium Total Bilirubin AST ALT Alkaline Phosphatase Troponin I High Sens B-Natriuretic Peptide Total Protein Albumin TSH Urine Color Yellow Urine Appearance Clear Urine pH 5.5 Ur Specific Allison >= 1.030 H Urine Protein Negative Urine Glucose (UA) Negative Urine Ketones Negative Urine Blood Negative Urine Nitrite Negative Ur Leukocyte Esterase Negative COVID-19 ([facility]) COVID-19 Clin Com 07/23/22 07/23/22 07/23/22 22:15 22:16 22:16 WBC 8.1 RBC 4.66 Hgb 13.7 Hct 41.4 MCV 88.8 MCH 29.4 MCHC 33.1 RDW 13.7 Plt Count 265 MPV 11.1 Immature Gran % (Auto) Neut % (Auto) Lymph % (Auto) [place] % (Auto) Eos % (Auto) Baso % (Auto) Lymph # (Auto) [place] # (Auto) Eos # (Auto) Baso # (Auto) Abs Immat Gran (auto) Absolute Neuts (auto) Absolute Nucleated RBC 0.000 Nucleated RBC % (auto) 0.0 PT 12.2 INR 1.1 APTT aPTT Heparin Protocol 32.2 L D-Dimer High Sensitivty Sodium Potassium Chloride Carbon Dioxide Anion Gap BUN Creatinine Estim Creat Clear Calc Estimated GFR POC Glucose Random Glucose Calcium Magnesium Total Bilirubin AST ALT Alkaline Phosphatase Troponin I High Sens B-Natriuretic Peptide Total Protein Albumin TSH 1.51 Urine Color Urine Appearance Urine pH Ur Specific Allison Urine Protein Urine Glucose (UA) Urine Ketones Urine Blood Urine Nitrite Ur Leukocyte Esterase COVID-19 ([facility]) COVID-19 Clin Com 07/24/22 07/24/22 07/24/22 03:06 05:52 05:52 WBC RBC Hgb Hct MCV MCH MCHC RDW Plt Count MPV Immature Gran % (Auto) Neut % (Auto) Lymph % (Auto) [place] % (Auto) Eos % (Auto) Baso % (Auto) Lymph # (Auto) [place] # (Auto) Eos # (Auto) Baso # (Auto) Abs Immat Gran (auto) Absolute Neuts (auto) Absolute Nucleated RBC Nucleated RBC % (auto) PT 12.8 INR 1.1 APTT aPTT Heparin Protocol 34.6 L D-Dimer High Sensitivty Sodium Potassium Chloride Carbon Dioxide Anion Gap BUN Creatinine Estim Creat Clear Calc Estimated GFR POC Glucose Random Glucose Calcium Magnesium Total Bilirubin AST ALT Alkaline Phosphatase Troponin I High Sens B-Natriuretic Peptide 297 H Total Protein Albumin TSH Urine Color Urine Appearance Urine pH Ur Specific Allison Urine Protein Urine Glucose (UA) Urine Ketones Urine Blood Urine Nitrite Ur Leukocyte Esterase COVID-19 ([facility]) COVID-19 Clin Com 07/24/22 07/24/22 07/24/22 07:44 08:03 08:03 WBC 7.6 RBC 4.28 Hgb 12.7 Hct 37.8 MCV 88.3 MCH 29.7 MCHC 33.6 RDW 13.7 Plt Count 237 MPV 10.9 Immature Gran % (Auto) Neut % (Auto) Lymph % (Auto) [place] % (Auto) Eos % (Auto) Baso % (Auto) Lymph # (Auto) [place] # (Auto) Eos # (Auto) Baso # (Auto) Abs Immat Gran (auto) Absolute Neuts (auto) Absolute Nucleated RBC 0.000 Nucleated RBC % (auto) 0.0 PT INR APTT aPTT Heparin Protocol 128.5 H* D D-Dimer High Sensitivty Sodium 145 Potassium 3.3 Chloride 105 Carbon Dioxide 28 Anion Gap 15 BUN 16 Creatinine 0.68 Estim Creat Clear Calc 119.1 Estimated GFR > 60 POC Glucose Random Glucose 134 H Calcium 8.8 Magnesium Total Bilirubin AST ALT Alkaline Phosphatase Troponin I High Sens B-Natriuretic Peptide Total Protein Albumin TSH Urine Color Urine Appearance Urine pH Ur Specific Allison Urine Protein Urine Glucose (UA) Urine Ketones Urine Blood Urine Nitrite Ur Leukocyte Esterase COVID-19 ([facility]) COVID-19 Clin Com 07/24/22 07/25/22 07/25/22 09:16 06:20 06:20 WBC 6.9 RBC 4.27 Hgb 12.4 Hct 37.8 MCV 88.5 MCH 29.0 MCHC 32.8 RDW 13.8 Plt Count 238 MPV 11.1 Immature Gran % (Auto) 0.3 Neut % (Auto) 57.6 Lymph % (Auto) 28.5 [place] % (Auto) 10.6 Eos % (Auto) 2.6 Baso % (Auto) 0.4 Lymph # (Auto) 2.0 [place] # (Auto) 0.7 Eos # (Auto) 0.2 Baso # (Auto) 0.0 Abs Immat Gran (auto) 0.02 Absolute Neuts (auto) 4.0 Absolute Nucleated RBC 0.000 Nucleated RBC % (auto) 0.0 PT INR APTT aPTT Heparin Protocol 56.7 D D-Dimer High Sensitivty Sodium 142 Potassium 3.7 Chloride 102 Carbon Dioxide 26 Anion Gap 18 BUN 16 Creatinine 0.70 Estim Creat Clear Calc 116.9 Estimated GFR > 60 POC Glucose Random Glucose 117 H Calcium 8.6 Magnesium Total Bilirubin AST ALT Alkaline Phosphatase Troponin I High Sens B-Natriuretic Peptide Total Protein Albumin TSH Urine Color Urine Appearance Urine pH Ur Specific Allison Urine Protein Urine Glucose (UA) Urine Ketones Urine Blood Urine Nitrite Ur Leukocyte Esterase COVID-19 ([facility]) COVID-19 Clin Com Airway Mallampati Class: II TM Dist: >3cm Neck ROM: Full Loose/Missing/Broken Teeth: Yes (2 top front capped. Some missing teeth) Heart: Irregularly irregular Lungs: CTAB Assessment and Plan Assessment Anesthesia Assessment: Anesthesia Plan Discussed and Chart Reviewed Final Anesthetic Review Family History of Problems with Anesthesia: No History of Problems with Anesthesia: Yes (See above. Surgery for gall bladder was in the 1980s. No problems with anesthesia since) NPO: Yes ASA Class: IV Final Preanesthetic Review: No Changes in Pt Med Stat, Meds/Allgs Chart Reviewed, Consent Obtained/Reviewed and Anes Risks/Benef Reviewed Patient Risk: High Procedure Risk: Low Assessment/Block/Sedation in SS: Assess/Block/Sedation-SS Anesthetic Plan Anesthetic Plan: GA Disposition: Standard PACU and Inp. Admit - I[facility]
--- NOTE | 2022-07-25 14:30 | CA_ITS ---
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 Limited CAMILLE showing no LA or KRIS thrombus. We proceeded with cardioversion. Findings Left Ventricle Normal left ventricular size and systolic function. Right Ventricle Normal right ventricular cavity size and systolic function. Atria LA is dilated. No thrombus in LA or KRIS. Aortic Valve There is no aortic valve stenosis. There is no aortic valve regurgitation. Mitral Valve The mitral valve appears normal. There is trace mitral valve regurgitation. Pericardium/Pleural There is no evidence of pericardial effusion. Updated by Jaime Clifford on 10:44 PM with Status of Final Jaime Clifford MD electronically signed on 07/25/2022 10:44:34 PM with status of Final
--- NOTE | 2022-07-25 15:41 | MHC.SHP ---
Pre-Procedural Eval Section A Date of Service: 07/25/22 The patient is an INPATIENT: Yes Section B Chief Complaint: new onset afib. CHF Details of Present Illness: For CAMILLE and cardioversion Allergies: Allergies Allergy/AdvReac Type Severity Reaction Status Date / Time adhesive tape [ADHESIVE TAPE] Allergy Intermediate BLISTERS Verified 07/23/22 15:06 Plan Diagnosis/Plan: Unchanged I have reviewed the history and physical and performed a pertinent physical examination on my patient. No changes have occurred unless specified.
--- NOTE | 2022-07-25 16:26 | PM.PNCARD ---
Subjective Subjective Date of Service: 07/25/22 Interval history: Seen and examined at bedside. doing well. For CAMILLE and CV today. Physical Exam Vital Signs: Last Vital Signs Temp 97.5 F 07/25/22 13:55 Pulse 106 H 07/25/22 13:55 Resp 18 07/25/22 13:55 BP 124/78 07/25/22 13:55 Pulse Ox 95 07/25/22 13:55 O2 Del Method 07/25/22 13:55 O2 Flow Rate 3 07/24/22 20:56 BMI result Body Mass Index 60.9 GENERAL APPEARANCE: in no acute distress, pleasant. NECK: no carotid bruit, no JVD. SKIN: no suspicious lesions, warm and dry. HEART: no murmurs, irregularly irregular rhythm. LUNGS: clear to auscultation bilaterally. ABDOMEN: soft, nontender. EXTREMITIES: no edema. PERIPHERAL PULSES: equal. NEUROLOGIC: No gross deficits, AAO X 3 Objective Labs and Meds Result diagrams: 07/25/22 06:20 07/25/22 06:20 Lab results: Laboratory Results - last 24 hr 07/25/22 07/25/22 06:20 06:20 WBC 6.9 RBC 4.27 Hgb 12.4 Hct 37.8 MCV 88.5 MCH 29.0 MCHC 32.8 RDW 13.8 Plt Count 238 MPV 11.1 Immature Gran % (Auto) 0.3 Neut % (Auto) 57.6 Lymph % (Auto) 28.5 [place] % (Auto) 10.6 Eos % (Auto) 2.6 Baso % (Auto) 0.4 Lymph # (Auto) 2.0 [place] # (Auto) 0.7 Eos # (Auto) 0.2 Baso # (Auto) 0.0 Abs Immat Gran (auto) 0.02 Absolute Neuts (auto) 4.0 Absolute Nucleated RBC 0.000 Nucleated RBC % (auto) 0.0 Sodium 142 Potassium 3.7 Chloride 102 Carbon Dioxide 26 Anion Gap 18 BUN 16 Creatinine 0.70 Estim Creat Clear Calc 116.9 Estimated GFR > 60 Random Glucose 117 H Calcium 8.6 Progress Note: A&P Assessment and plan (1) Atrial fibrillation: Status: Acute (2) CHF (congestive heart failure): Status: Acute Plan 66 female with Afib and CHF On amiodarone load and Eliquis For CAMILLE CV today. Post would leave her on Eliquis and amiodarone. Would stop cardizem post cardioversion and depending on the HR would add BB. Time Spent With Patient Time: Total time spent is greater than 50% in coordination of care (as documented) at patient's floor/unit and/or counseling patient: Progress Note: Quality Stroke Does the patient have a stroke diagnosis?: No Procedures Date of Service Date of Service: 07/25/22
--- NOTE | 2022-07-25 16:28 | P.PNCAR_ITS ---
Cardioversion Procedure Note Cardioversion Date of Procedure: 07/25/22 Ordering Provider: Jaime Clifford Performing Provider: Jaime Clifford Indication for Procedure: Afib, CHF Performed with Transesophageal Echo: Yes CAMILLE findings (if CAMILLE Performed): No LA/KRIS thrombus Consent: Verbal and Written consent was obtained from the patient before starting. The patient was made aware of the risk of stroke, aspiration and failure. Procedure: After consent obtained, defib pads were attached and the patient was sedated by the anesthesia team. Once adequate sedation achieved, single shock of 200 J sy nchronized. She converted to sinus bradycardia. Left with anesthesia for recovery. Recommendations: Stop cardizem. Decrease cardizem to 400 mg BID. No BB till HR has recovered.
[2022-07-25] MEDS: Lactated Ringers 1,000 ML 50 ML IVCONT (18:27)
[2022-07-25] MEDS: Furosemide 40 MG/4 ML VIAL IVPUSH (18:32)
[2022-07-25] MEDS: Apixaban 5 MG TABLET PO (20:32)
[2022-07-25] MEDS: Fluticasone Propionate 100 MCG BLST.W.DEV 1 PUFF INHALE (21:16)
[2022-07-26] VITALS: BP 116/53; PULSE 66; TEMP 37; O2SAT 98
[2022-07-26 03:21] VITALS: BP 100/59; PULSE 66; RESP 20; TEMP 37.1; O2SAT 96
[2022-07-26] MEDS: Lactated Ringers 1,000 ML 50 ML IVCONT (06:08)
[2022-07-26 07:46] LABS: Anion Gap 16 (12-20); Blood Urea Nitrogen 18 mg/dL (9-16); Calcium 8.6 mg/dL (8.4-10.2); Carbon Dioxide 29 mmol/L (22-29); Chloride 102 mmol/L (96-108); Creatinine Clr Calc Pharmacy 109.2; Estimated Glomerular Filt Rate > 60; Glucose Random 109 mg/dL (60-115); Potassium 4.1 mmol/L (3.3-5.1); Sodium 143 mmol/L (135-145)
[2022-07-26 07:51] VITALS: BP 105/62; PULSE 63; RESP 20; TEMP 36.4; O2SAT 93
[2022-07-26] MEDS: Amiodarone HCL 200 MG TABLET 400 MG PO (08:41)
[2022-07-26] MEDS: Apixaban 5 MG TABLET PO (08:41)
[2022-07-26] MEDS: PARoxetine HCL 30 MG TABLET 45 MG PO (08:42)
[2022-07-26] MEDS: 0.9 % Sodium Chloride Flush 3 ML SYRINGE IVFLUSH (08:43)
[2022-07-26] MEDS: Fluticasone Propionate 100 MCG BLST.W.DEV 1 PUFF INHALE (08:49)
[2022-07-26 08:52] VITALS: PULSE 68; RESP 18; O2SAT 93
[2022-07-26] MEDS: Furosemide 40 MG/4 ML VIAL IVPUSH (08:52)
--- NOTE | 2022-07-26 11:19 | HO.POSTANES ---
Post Anesthesia Evaluation Post Anesthesia Evaluation Vital Signs: Vital Signs Temp Pulse Resp BP Pulse Ox O2 Del Method 07/26/22 08:52 68 18 07/26/22 07:51 97.5 F 63 20 105/62 93 CPAP 07/26/22 03:21 98.7 F 66 20 100/59 L 96 CPAP 07/26/22 00:00 98.6 F 66 116/53 L 98 CPAP Anesthesia: General Mental Status: Awake Pain Control: Satisfactory Nausea/Vomiting: None Hydration: Adequate Anesthesia-Related Issues: No Anes. Related Issues
[2022-07-26 11:54] VITALS: BP 112/58; PULSE 68; RESP 20; TEMP 36.3; O2SAT 94
--- NOTE | 2022-07-26 12:56 | PM.DS ---
DS: Providers Provider Date of Service: 07/26/22 Date of admission: 07/23/22 20:49 Date of discharge: 07/26/22 Primary care physician: Ang Bernstein MD Consults: 07/23/22 21:23 Consult to Cardiology Routine Consulting Provider: Jaime Clifford Reason for consultation: new onset afib with rvr Has provider been notified: No Attending physician on discharge: Yue Lawler Discharging clinician: Ni Lopez DS: Diagnosis Discharge Diagnosis (1) Atrial fibrillation: Status: Acute (2) CHF (congestive heart failure): Status: Acute DS: Summary Hospital Course Hospital Course: From H&P on day of admission 66-year-old female with history of JIMBO on CPAP, mild intermittent asthma, hypertension, hyperlipidemia, depression, and morbid obesity with BMI greater than 61 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 Over last few weeks she has also been reporting episodes of palpitations lasting for several minutes as well as diaphoresis primarily when walking.? Heart rate at the office was 124 with EKG showing new onset atrial fibrillation with RVR. In the ED, cxr with hypoinflation. EKG with atrial fibraillation, rate 127 with nonspecific t wave abnormality. Troponin neg at 3.5. BNP 513. Hematology and chemistry studies otherwise unremarkable. CTA negative for PE. Given 15mg push metoprolol as well as 2 pushes diltiazem with limited improvement of HR to 110-120. Started on diltiazem drip at 5ml/hr per protocol. ED discussed case with cards. Heparin initiated per protocol. Pt/INR 12.9/1.1. D-Dimer 383. Discharge diagnoses Atrial fibrillation with rapid ventricular response Acute diastolic CHF Pulmonary nodule Atrial fibrillation with rapid ventricular response-initially treated with Cardizem drip. Seen in consultation by Cardiology and was started on oral amiodarone. She underwent successful cardioversion on July 25. Her breathing and palpitations have resolved and her heart rate has been controlled, she is currently in normal sinus rhythm. She should continue 2 weeks of amiodarone 400 mg twice daily and then decrease dose to 200 mg daily. Her baseline blood pressure medications of losartan, hydrochlorothiazide, atenolol have been discontinued and her blood pressure has remained stable off of these medications. She was started on anticoagulation with Eliquis. She should avoid NSAIDs while taking blood thinner and should monitor for signs of bleeding. This was discussed with the patient. She underwent echocardiogram which showed preserved left ventricular ejection fraction, mildly increased right ventricular cavity size, severely dilated left atrium and indeterminate diastolic function. Probable acute diastolic CHF, started on diuresis with IV Lasix. She will be transition to oral Lasix and discharged with 40 mg of oral Lasix daily. Time Spent with Patient Time attestation: Total time spent providing and/or coordinating discharge services: Discharge coordination time: Greater than 30 minutes Quality: Safe Use of Opioids Does Pt have an Active Cancer Diagnosis on the Problem List?: No Quality: Stroke Does the patient have a stroke diagnosis?: No Physical Exam Vital Signs: Vital Signs: Last Vital Signs Temp 97.3 F 07/26/22 11:54 Pulse 68 07/26/22 11:54 Resp 20 07/26/22 11:54 BP 112/58 L 07/26/22 11:54 Pulse Ox 94 07/26/22 11:54 O2 Del Method 07/26/22 11:54 O2 Flow Rate 1 07/26/22 11:54 BMI result Body Mass Index 60.9 Const: General: cooperative, comfortable, alert and awake Nutritional Appearance: obese Orientation/consciousness: patient oriented x3 Resp: Effort & Inspection: normal respiratory effort and able to speak in complete sentences Cardio: Rate: regular rate Heart sounds: S1 normal heart sound present and S2 normal heart sound present GI: Inspection: No distended and Yes obesity Palpation (GI): Soft to palpation and nontender Neuro: Other: grossly nonfocal General: patient oriented x3 Extrem: General: Yes no pedal edema DS: Data Data Completed and Pending Labs on day of discharge: Laboratory Results - last 24 hr 07/26/22 06:17 Sodium 143 Potassium 4.1 Chloride 102 Carbon Dioxide 29 Anion Gap 16 BUN 18 H Creatinine 0.74 Estim Creat Clear Calc 109.2 Estimated GFR > 60 Random Glucose 109 Calcium 8.6 Discharge Plan Discharge Patient Disposition: Home, Self-Care Discharge Diagnosis: atrial fibrillation with RVR CHF Referrals: Ang Bernstein MD [Primary Care Provider] - 1 Week Jaime Clifford MD [Physician] - 1 Week Discharge Medications: New Eliquis 5 mg Tablet 5 mg PO BID 30 Days Qty: 60 0RF amiodarone 200 mg Tablet 400 mg PO BID Qty: 44 0RF Rx Instructions: Take 400 mg twice daily for two weeks and then 200 mg daily after that furosemide [Lasix] 40 mg tablet 40 mg PO DAILY 30 Days Qty: 30 0RF Continued Qvar RediHaler 80 mcg/actuation HFA aerosol breath activated 1 inh inhalation Q12H 30 Days Qty: 10.6 5RF Rx Instructions: administer with spacer albuterol sulfate [ProAir HFA] 90 mcg/actuation HFA aerosol inhaler 2 puff inhalation Q4-6H PRN (Reason: shortness of breath or wheezing) 30 Days Qty: 8.5 3RF paroxetine HCl 30 mg tablet 45 mg PO DAILY Discontinued atenolol 50 mg tablet 50 mg PO DAILY Qty: 30 0RF hydrochlorothiazide 12.5 mg tablet 12.5 mg PO DAILY Qty: 30 0RF ibuprofen 800 mg tablet 800 mg PO ONCE Qty: 30 0RF valsartan 320 mg Tablet 320 mg PO DAILY Discharge Orders: Discharge Order (Routine); Ordered 07/26/22 Ordered By: Ni Lopez Activity on Discharge: As tolerated Stand Alone Forms: Patient Portal Discharge page, Work/School Release Care Plan Goals: see below Health Concerns: Atrial fibrillation with rapid ventricular response Acute CHF Lung nodule Plan of Treatment: For atrial fibrillation - take amiodarone 400 mg twice daily for two weeks and then 200 mg daily after that Take Eliquis as prescribed to lower risk of stroke - he should not take NSAIDs (ibuprofen, Naprosyn etc) while taking blood thinner. 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 Blood pressure has been controlled off of these medications. Call to schedule follow-up appointment with PCP for close blood pressure monitoring There was a 5mm right upper lobe lunge nodule seen on CTA - outpatient follow up recommended Assessment: see discharge summary Discharge Date/Time: 07/26/22 15:31
--- NOTE | 2022-07-26 13:35 | PM.PNCARD ---
Subjective Subjective Date of Service: 07/26/22 Interval history: Seen examined at bedside. Telemetry reviewed. Doing well. Continues to be in sinus rhythm after cardioversion. On amiodarone. Physical Exam Vital Signs: Last Vital Signs Temp 97.3 F 07/26/22 11:54 Pulse 68 07/26/22 11:54 Resp 20 07/26/22 11:54 BP 112/58 L 07/26/22 11:54 Pulse Ox 94 07/26/22 11:54 O2 Del Method 07/26/22 11:54 O2 Flow Rate 1 07/26/22 11:54 BMI result Body Mass Index 60.9 GENERAL APPEARANCE: in no acute distress, pleasant. NECK: no carotid bruit, no jugular venous distention. SKIN: no suspicious lesions, warm and dry. HEART: no murmurs, regular rate and rhythm. LUNGS: clear to auscultation bilaterally. ABDOMEN: soft, nontender. EXTREMITIES: no edema. PERIPHERAL PULSES: equal. NEUROLOGIC: No gross deficits, AAO X 3 Objective Labs and Meds Result diagrams: 07/25/22 06:20 07/26/22 06:17 Lab results: Laboratory Results - last 24 hr 07/26/22 06:17 Sodium 143 Potassium 4.1 Chloride 102 Carbon Dioxide 29 Anion Gap 16 BUN 18 H Creatinine 0.74 Estim Creat Clear Calc 109.2 Estimated GFR > 60 Random Glucose 109 Calcium 8.6 Progress Note: A&P Assessment and plan (1) CHF (congestive heart failure): Status: Acute (2) Atrial fibrillation: Status: Acute Plan Pleasant 66-year-old female who is here for atrial fibrillation rapid ventricular small and congestive heart failure. She was loaded with amiodarone and underwent cardioversion successfully yesterday. Post cardioversion QT intervals were 408 millisecond. I think she should continue amiodarone 400 mg twice a day for 2 weeks and then can be changed to 200 mg amiodarone daily. Eliquis for anticoagulation. Stop atenolol and Cardizem. Continue 40 mg Lasix once a day. Hydrochlorothiazide should be discontinued. She is not getting her ARB currently and her blood pressure is normal. I think hold the ARB for now and she can resume it after she sees her primary care physician or sees us in the office. I will arrange an exercise stress test for her as outpatient and if that does not show any significant perfusion issues then we will consider starting her on flecainide or propafenone after stopping amiodarone. Thank you for allowing me to participate in the care of your patient. Please feel free to contact me if you have any questions. Time Spent With Patient Time: Total time spent is greater than 50% in coordination of care (as documented) at patient's floor/unit and/or counseling patient: Progress Note: Quality Stroke Does the patient have a stroke diagnosis?: No Procedures Date of Service Date of Service: 07/26/22
--- NOTE | 2022-07-26 14:03 | MHC.CM.PN ---
Patient has been medically cleared for dc to home today, self care. Last IMM addressed yesterday.
== END 2022-07-26 15:31 | disposition home or self-care (01) | DRG 308 ==
LOC: HO.ED 18:09 → HO.EDOVER 21:14 → HO.IMC 07-24 19:26
PROVIDERS: Internal Medicine Cardiovascular Disease; Physician Assistant; Admitting Provider Physician Assistant; Emergency Provider Emergency Medicine; PCP Internal Medicine; Visit Provider Physician Assistant Medical
PROC: 5A2204Z Restoration of Cardiac Rhythm, Single (ICD-10-PCS; CPT 93312; principal; 2022-07-25 14:30)
PROC: 5A2204Z Restoration of Cardiac Rhythm, Single (ICD-10-PCS; 2022-07-25 14:30)
DX: I48.91 Unspecified atrial fibrillation (principal); I50.31 Acute diastolic (congestive) heart failure; Z68.44 Body mass index [BMI] 60.0-69.9, adult; E78.5 Hyperlipidemia, unspecified; J45.20 Mild intermittent asthma, uncomplicated; E66.01 Morbid (severe) obesity due to excess calories; F32.9 Major depressive disorder, single episode, unspecified; I11.0 Hypertensive heart disease with heart failure; I50.811 Acute right heart failure; R06.00 Dyspnea, unspecified; R91.1 Solitary pulmonary nodule; U09.9 Post COVID-19 condition, unspecified; G47.33 Obstructive sleep apnea (adult) (pediatric); Z20.822 Contact with and (suspected) exposure to COVID-19; Z98.84 Bariatric surgery status; Z87.891 Personal history of nicotine dependence; Z79.01 Long term (current) use of anticoagulants; Z79.899 Other long term (current) drug therapy
CPT/HCPCS: 36415; 71045; 71275; 80048; 80053; 81003; 82947; 83735; 83880; 84443; 84484; 85025; 85027; 85379; 85610; 85730; 87635; 92960; 93005; 93306; 94660; 96365; 96366; 96367; 96375; 96376; 99212; 99285; J0610; J1940; J2370; J2405; J3010; Q9957; Q9967

== ENCOUNTER → 2022-08-06 09:23 | Outpatient (BNVA) | payer MEDICARE, OTHER, SELFPAY | PROVIDERS: PCP Internal Medicine; Referring Provider Internal Medicine; Visit Provider Internal Medicine Cardiovascular Disease | DX: I50.32 Chronic diastolic (congestive) heart failure (principal); I48.0 Paroxysmal atrial fibrillation; Z79.899 Other long term (current) drug therapy | CPT/HCPCS: 93005; 99212 ==

== ENCOUNTER → 2022-08-14 08:24 | Outpatient (REF) | payer MEDICARE, OTHER, SELFPAY ==
--- NOTE | ~2022-08-14 | NM_ITS ---
Myocardial perfusion study Indication: Chest pain to evaluate for myocardial ischemia Technique: The patient was brought in for a Lexiscan perfusion study on 08/14/2022. Patient performed low-level exercise and was injected 0.4 mg of Lexiscan intravenously. Within a minute of injection, 45 mCi of sestamibi was given intravenously. Images were obtained using the SPECT gamma camera interlaced with the gating device. Images were obtained in supine position. Resting perfusion study was performed on 08/15/2022. Patient was administered 45 mCi of sestamibi intravenously at rest. Images were then obtained in supine position. Images obtained with and without CT attenuation. Total DLP 164 mGy-cm. Images were processed with the software and compared side to side in short axis, horizontal long axis and vertical long axis views. Findings: The stress perfusion study showed non attenuated images show normal uptake of radiotracer in all segments of LV myocardium. Attenuation corrected images show mildly reduced uptake in the apical portion of the lateral wall of the LV myocardium.. The gated study shows normal LV systolic function with calculated LVEF of 61%. LV cavity is normal in size. The gated study shows normal systolic wall thickening and contraction of segments. Resting study shows nontender images show minimally reduced uptake in the basal lateral wall of the LV myocardium. Gating at rest reveals normal systolic wall motion with ejection fraction at 55%. The findings are consistent with normal myocardial perfusion. NM/NM cardiolite stress test Impression: 1. Myocardial perfusion imaging study shows normal myocardial perfusion 2. Gated LVEF is 61% 3. Transient ischemic dilatation not present EKG is nondiagnostic for ischemia
--- NOTE | 2022-08-14 08:27 | CA_ITS ---
Acquisition Time: 2022-08-14 08:44:19 Total Exercise Time: 00:02:00 Test Indications: CP, AFIB Medications: SEE CHART Protocol: LEXISCAN Max HR: 142 BPM 92% of Pred: 153 BPM Max BP: 162/090 mmHG Max Work Load: 1.6 METS Pharmacological stress test with Lexiscan injection, while walking slow on treadmill, with moderate sob, no chest discomfort, with isolated PVCs, with normotensive response to injection, with nondiagnostic EKG for ischemia. In recovery she reported lightheadedness that was treated with Aminophylline 75mg IVP to reverse Lexiscan with resolution of symptom. Nuclear images pending. Test reviewed with Dr Clifford. Note: Test ordered as an exercise nuclear stress test however pt ambulates slowly with cane, reports bilateral knee pains and sob with walking. Does not feel she can walk on incline on treadmill or at brisk pace. Test changed to pharmacological nuclear stress test. Referred By: Jaime Clifford Overread By: TERRY SAL
== END ==
LOC: HO.CARD 08:24
PROVIDERS: Visit Provider Internal Medicine Cardiovascular Disease
DX: R07.9 Chest pain, unspecified (principal)
CPT/HCPCS: 78452; 93017; A9500; J0280; J2785

== ENCOUNTER → 2022-09-03 14:08 | Outpatient (BNVA) | payer MEDICARE, OTHER, SELFPAY | PROVIDERS: PCP Internal Medicine; Referring Provider Internal Medicine; Visit Provider Nurse Practitioner Family | DX: I48.0 Paroxysmal atrial fibrillation (principal); I11.0 Hypertensive heart disease with heart failure; I50.32 Chronic diastolic (congestive) heart failure; G47.33 Obstructive sleep apnea (adult) (pediatric); Z99.89 Dependence on other enabling machines and devices | CPT/HCPCS: 93005; 99212 ==

== ENCOUNTER → 2022-09-10 09:57 | Outpatient (BNVA) | payer MEDICARE, OTHER, SELFPAY | PROVIDERS: PCP Internal Medicine; Referring Provider Internal Medicine; Visit Provider Internal Medicine Cardiovascular Disease | DX: I44.0 Atrioventricular block, first degree (principal) | CPT/HCPCS: 93005 ==

== ENCOUNTER → 2022-10-14 13:54 | Outpatient (BNVA) | payer MEDICARE, OTHER, SELFPAY | PROVIDERS: PCP Internal Medicine; Referring Provider Internal Medicine; Visit Provider Nurse Practitioner Family | DX: I48.0 Paroxysmal atrial fibrillation (principal); I11.0 Hypertensive heart disease with heart failure; I50.32 Chronic diastolic (congestive) heart failure; G47.33 Obstructive sleep apnea (adult) (pediatric); Z99.89 Dependence on other enabling machines and devices | CPT/HCPCS: 93005; 99212 ==

== ENCOUNTER → 2022-11-19 11:32 | Outpatient (BNVA) | payer MEDICARE, OTHER, SELFPAY | PROVIDERS: PCP Internal Medicine; Visit Provider Internal Medicine | DX: J45.901 Unspecified asthma with (acute) exacerbation (principal); J40 Bronchitis, not specified as acute or chronic; G47.33 Obstructive sleep apnea (adult) (pediatric); Z99.89 Dependence on other enabling machines and devices | CPT/HCPCS: 99212 ==

== ENCOUNTER → 2022-11-27 14:04 | Outpatient (BNVA) | payer MEDICARE, OTHER, SELFPAY | PROVIDERS: PCP Internal Medicine; Visit Provider Internal Medicine | DX: J45.20 Mild intermittent asthma, uncomplicated (principal); G47.33 Obstructive sleep apnea (adult) (pediatric); E66.01 Morbid (severe) obesity due to excess calories; Z68.43 Body mass index [BMI] 50.0-59.9, adult; Z79.899 Other long term (current) drug therapy; Z99.89 Dependence on other enabling machines and devices | CPT/HCPCS: 99212 ==

== ENCOUNTER → 2022-12-03 16:06 | Outpatient (REF) | payer MEDICARE, OTHER, SELFPAY | LOC: HO.SL 16:06 | PROVIDERS: Visit Provider Internal Medicine | DX: G47.33 Obstructive sleep apnea (adult) (pediatric) (principal) | CPT/HCPCS: 95806 ==

== ENCOUNTER 2022-12-22 10:44 | Observation (INO) | payer MEDICARE, OTHER, SELFPAY ==
--- NOTE | 2022-12-22 | ECG_ITS ---
Test Reason : afib Blood Pressure : / mmHG Vent. Rate : 115 BPM Atrial Rate : 000 BPM P-R Int : 000 ms QRS Dur : 090 ms QT Int : 328 ms P-R-T Axes : 000 -06 113 degrees QTc Int : 453 ms Atrial fibrillation with rapid ventricular response Septal infarct (cited on or before 25-JUL-2022) Nonspecific ST and T wave abnormality Abnormal ECG When compared with ECG of 25-JUL-2022 16:52, Atrial fibrillation has replaced Sinus rhythm Vent. rate has increased BY 55 BPM Nonspecific T wave abnormality no longer evident in Inferior leads Nonspecific T wave abnormality, improved in Anterior leads Referred By: Generic ED Physician Electronically Signed By:LANDRY HAMM MD
--- NOTE | ~2022-12-22 | XR_ITS ---
EXAMINATION: XR CHEST CLINICAL INFORMATION: Shortness of breath. COMPARISON: July 23, 2022. TECHNIQUE: Portable AP view of the chest was obtained. XR/XR chest 1V FINDINGS/IMPRESSION: The study is limited by portable technique, low lung volumes, patient body habitus. There is no gross acute radiographic finding. No focal infiltrate, effusion, pneumothorax is seen. The cardiac silhouette is suboptimally evaluated. There are mild degenerative changes of the shoulders and spine.
[2022-12-22 10:52] VITALS: BP 143/100; PULSE 122; RESP 18; TEMP 36.6; O2SAT 96; BMI 56.7
[2022-12-22 11:06] LABS: MANUAL DIFF FLAG NO
[2022-12-22 11:09] LABS: Basophils Percent Auto 0.4 % (0-2); Eosinophils Absolute Auto 0.1 X10*3/uL (0.0-0.4); Eosinophils Percent Auto 1.8 % (0-4); Hematocrit 45.6 % (37.0-47.0); Hemoglobin 15.1 g/dl (12.0-16.0); Imm Gran Abs Auto 0.01 X10*3/uL (0.00-0.03); Imm Gran Pct Auto 0.1 % (0.0-0.4); Lymphocytes Absolute Auto 1.2 X10*3/uL (1.2-4.9); Lymphocytes Percent Auto 15.7 % (20-40); Mean Corpuscular HGB Conc 33.1 g/dl (31.0-35.0); Mean Corpuscular Hemoglobin 28.6 pg (27.0-33.0); Mean Corpuscular Volume 86.4 fL (80.0-98.0); Monocytes Absolute Auto 0.6 X10*3/uL (0.1-1.2); Monocytes Percent Auto 8.2 % (2-11); Neutrophils Absolute Auto 5.6 x10*3/uL (2.0-8.3); Neutrophils Percent Auto 73.8 % (45-73); Platelet Count 226 X10*3/uL (160-400); Red Blood Count 5.28 X10*6/uL (4.20-5.50); Red Cell Distribution Width 13.5 % (11.0-16.0); White Blood Count 7.6 X10*3/uL (4.8-10.8)
[2022-12-22 11:21] LABS: Alanine Aminotransferase 15 U/L (0-31); Albumin Level 3.8 g/dL (3.5-5.0); Alkaline Phosphatase 118 U/L (39-117); Anion Gap 14 (12-20); Aspartate Amino Transferase 14 U/L (5-31); Bilirubin Total 1.2 mg/dL (0.0-1.0); Blood Urea Nitrogen 15 mg/dL (9-16); Carbon Dioxide 24 mmol/L (22-29); Chloride 108 mmol/L (96-108); Creatinine Clr Calc Pharmacy 104.2; Estimated Glomerular Filt Rate > 60; Glucose Random 216 mg/dL (60-115); Potassium 3.6 mmol/L (3.3-5.1); Sodium 142 mmol/L (135-145); Total Protein 6.3 g/dL (6.5-8.0)
[2022-12-22] MEDS: Metoprolol Tartrate 5 MG/5 ML VIAL IVPUSH ×3 (11:31→13:25)
[2022-12-22 11:33] LABS: Troponin-I High Sensitivity < 3.5 ng/L (<3.5-17.0)
[2022-12-22 11:50] LABS: B Type Natriuretic Peptide 222 pg/mL (<100)
[2022-12-22 11:53] LABS: Magnesium 1.7 mg/dL (1.6-2.6)
--- NOTE | 2022-12-22 12:12 | PC.NURSE ---
67 y/o F pw afib 110s on her apple watch. pt in gown, placed on shake backboard notcher, labs drawn and sent, EKG done. pt given 5mg IV metoprolol. VSS at this time.
[2022-12-22 12:38] VITALS: BP 125/85; PULSE 121; RESP 16; O2SAT 99
--- NOTE | 2022-12-22 12:53 | ED.ARRPALP ---
HPI - Arrhythmia/Palpitations General Chief Complaint: Arrhythmia/Palpitations Stated Complaint: Afib Time Seen by Provider: 12/22/22 11:09 Source: patient Mode of arrival: ambulatory Limitations: no limitations History of Present Illness HPI narrative: 66-year-old female with a PMHx of bronchial asthma, morbid obesity, and JIMBO on CPAP, CHF ( 07/24/2022 Echo = EF 55-60%) Paroxysmal Atrial fibrillation on apixaban and metoprolol and Flecainide, underwent CAMILLE cardioversion 07/25/2022 presents to [facility] with increased anxiety and SOB that began this morning. Patient states she monitors her heart rate with her watch. Her heart went up to 150. Her heart rate is typically in the 60's-70's. She reports her watch can also track her ECG, which read inconclusive. The inconclusive reading concerned her, that is why she decided to come in. The patient reports being compliant with her medications. Took her medications this morning. Thursday12/20/2022 she reports getting her COVID booster. She also reports feeling congested last couple of days. Denies fever, chills, night sweats. Denies chest pain, and palpitations. MD complaint: rapid heart beat and atrial fibrillation Onset (ago): hour(s) Arrhythmia history: atrial fibrillation Associated symptoms: shortness of breath and anxiety Related Data Home Medications Medication Instructions Recorded Confirmed paroxetine HCl 30 mg tablet 45 mg PO DAILY 10/01/20 10/15/22 mecobalamin (vitamin B12) 5,000 5,000 mcg PO .three times a week 08/06/22 10/15/22 mcg disintegrating tablet rosuvastatin 10 mg tablet 10 mg PO DAILY 08/06/22 10/15/22 omeprazole 20 mg capsule,delayed 20 mg PO DAILY 10/14/22 10/15/22 release Previous Rx's Medication Instructions Recorded cholecalciferol (vitamin D3) 25 25 mcg PO DAILY #30 caps 09/17/20 mcg (1,000 unit) capsule multivitamin 1 tab PO DAILY #30 tabs 09/17/20 omega-3 fatty acids 1,250 mg 1,250 mg PO DAILY #30 caps 09/17/20 capsule albuterol sulfate 90 mcg/actuation 2 puff inhalation Q4-6H PRN 10/29/21 aerosol inhaler (ProAir HFA) shortness of breath or wheezing 30 days #8.5 grams valsartan 160 mg tablet 160 mg PO DAILY #60 tabs 08/06/22 metoprolol succinate 50 mg 50 mg PO DAILY #60 tabs 08/15/22 tablet,extended release 24 hr (Toprol XL) furosemide 40 mg tablet (Lasix) 40 mg PO DAILY 30 days #30 tabs 08/21/22 apixaban 5 mg tablet (Eliquis) 5 mg PO BID 90 days #180 tabs 09/03/22 flecainide 50 mg tablet 50 mg PO Q12H 90 days #180 tabs 11/03/22 budesonide-formoterol HFA 160 2 puff inhalation Q12H 30 days 11/19/22 mcg-4.5 mcg/actuation aerosol #10.2 grams inhaler (Symbicort) Allergies Allergy/AdvReac Type Severity Reaction Status Date / Time adhesive tape [ADHESIVE TAPE] Allergy Intermediate BLISTERS Verified 11/27/22 14:49 Review of Systems Review of Systems: Constitutional : No Weight loss, No Fever, No Chills, No Night Sweats, No Fatigue, No Malaise ENT/Mouth : No Hearing loss, No Ear Pain, No Nasal Congestion, No Sinus Pain, No Hoarseness, No sore throat, No Rhinorrhea, No Swallowing Difficulty Eyes: No Eye Pain, No Swelling, No Redness, No Foreign Body, No Discharge, No Vision Changes Cardiovascular : No Chest Pain, + SOB, No Dyspnea on Exertion, No Orthopnea, No Edema, No Palpitations Respiratory : No Cough, No Sputum, No Wheezing, No Smoke Exposure, No Dyspnea Gastrointestinal : No Nausea, No Vomiting, No Diarrhea, No Constipation, No abdominal Pain, No Hematochezia, No Melena Genitourinary : no irregular bleeding, No Dysuria, No Urinary Frequency, No Hematuria, No Urinary Incontinence, No Urgency, No Flank Pain, No Urinary Flow Changes, No Hesitancy Musculoskeletal : No joint pain, No Myalgias, No Joint Swelling Skin : No Skin Lesions, No rash Neuro : No Weakness, No Numbness, No Paresthesias, No Loss of Consciousness, No Dizziness, No Headache Psych : + Anxiety, No Panic, No Depression, No SI/HI/AH/VH, No Social Issues, Heme/Lymph: No Bruising, No Bleeding,No Lymphadenopathy Endocrine : No Polyuria, No Polydipsia, No Temperature Intolerance Yes all other systems are reviewed and are negative [facility] Past Medical History Attestation statement: The following information was validated with the patient. Source: old records reviewed, obtained from family and nursing notes reviewed Medical History Asthma exacerbation Bronchial asthma Bronchitis History of cardioversion HTN (hypertension) MDD (major depressive disorder) Morbid obesity JIMBO on CPAP Post covid-19 condition, unspecified Surgical History Anal fistula H/O colonoscopy H/O umbilical hernia repair History of cholecystectomy History of hysterectomy for cancer Hx of laparoscopic gastric banding Social History Social History Household Members: Spouse Housing: House Do you presently have visiting nurse or other home services: No Alcohol intake: current Alcohol intake frequency: holidays/special occasions only Patient Tobacco Use Status: Former Tobacco user Quit Date: 1992 Tobacco use type: Cigarette Years Smoked: 25 +/- Second Hand Smoke Exposure: No Advance Directives: No Advance Directives Information Provided: Yes service: No Current occupational status: unemployed Physical Exam Vital Signs: Vital Signs: Last Vital Signs Temp 97.9 F 12/22/22 10:52 Pulse 121 H 12/22/22 12:38 Resp 16 12/22/22 12:38 BP 125/85 12/22/22 12:38 Pulse Ox 99 12/22/22 12:38 O2 Del Method 12/22/22 12:38 BMI result Body Mass Index 56.7 vital signs have been reviewed as normal and appeared to be correct. Blood 143/100 Heart rate 122. Respiration rate normal. Temperature normal. Oxygen saturation normal. Appearance: Alert. Oriented X3. No acute distress. Head: Normal external exam. Normocephalic. Atraumatic. Eyes: PERRLA. EOMI. Conjunctiva and sclera normal. Eyelids normal. ENT: EAC normal. TM's Normal. Pharynx normal. Uvula midline. Moist mucous membranes. No lesions/ulcerations or masses noted on the tongue. Normal voice. No trismus noted. No drooling noted. No muffled voice noted. Neck: Normal inspection. Neck supple. FROM. No adenopathy. Thyroid Normal. No tracheal deviation noted. No crepitus is noted. No meningeal signs. No neck mass noted. No signs of trauma noted. CVS: Irregularly irregular consistent with atrial fibrillation. Heart sound normal. Pulses normal throughout. No murmurs/rales/gallops. Respiratory: No respiratory distress. Painless inspiration. Breath sounds normal. No wheezes/rales/rhonchi noted. Chest nontender. No crepitus is noted. No accessory muscle usage noted or decreased air movement noted. No signs of trauma. Abdomen: Soft and nontender. Nondistended. No guarding. No rigidity. Bowel sounds normal in all 4 quadrants. No distention noted. No organomegaly noted. No visible injury noted. No rebound tenderness. Negative Rovsing sign. Negative obturator's sign. Negative psoas sign. Negative Rodríguez sign. Back: No CVA tenderness. Full range of motion noted. Nontender. No signs of trauma. Patient neuro intact bilaterally and distally on all 4 extremities. Patient's reflexes intact bilaterally and distally on all 4 extremities. No rashes/lesion/induration/fluctuance or signs of infection noted. Skin: Skin warm and dry. Normal skin color. Normal skin turgor. No rashes/lesions/lacerations noted. Extremities: +1 lower extremity edema. No calf tenderness is noted. Extremities exhibit normal range of motion and nontender. Neuro: Oriented X 3. No motor deficit. No sensory deficit. Reflexes normal. Normal steady gait. No focal neuro deficits noted. CN's II-XII intact bilaterally? Vascular: + radial pulses/+ 2 distal pedal pulses/+2 dorsalis pedis b/l. Normal cap refill. No cyanosis noted to upper extremity nails and lower extremity toes nails. Course Course Course Narrative: 11:30am - 66-year-old female with a PMHx of bronchial asthma, morbid obesity, and JIMBO on CPAP, CHF ( 07/24/2022 Echo = EF 55-60%) Paroxysmal Atrial fibrillation on apixaban and metoprolol and Flecainide, underwent CAMILLE cardioversion 07/25/2022 presents to [facility] with increased anxiety and SOB that began this morning. Patient states she monitors her heart rate with her watch. Her heart went up to 150. She reports her watch can also track her ECG, which read inconclusive. The inconclusive reading concerned her, that is why she decided to come in. The patient reports being compliant with her medications. Took her medications this morning. Thursday12/20/2022 she reports getting her COVID booster. She also reports feeling congested last couple of days. Plan: Labs, EKG, chest x-ray and consult with Cardiology. Provide IV Lopressor re-evaluate. Reevaluation(s) Reevaluation #1: Labs reviewed - random glucose 216. - total bilirubin 1.2. - alkaline phosphate 118 - BNP 222 - total protein 6.3 - patient negative for COVID/RSV/flu Otherwise all other labs are within normal Imaging CXR=WNL EKG= Atrial Fibrillation with RVR with a rate of [address] abnormalities. No acute ischemic changes are noted. Sinilar when compared to prior EKGs. Plan: I gave the patient 15 mg of Lopressor in 3 separate doses and patient is still in AFib. Therefore I discussed this case with Cardiology Dr. Sprague and he recommended giving her 150 mg of flecainide along with bolus of IV Cardizem 10 mg and re-evaluate. Therefore patient was given this at this time. Time: 13:40 Reevaluation #2: Patient has still not converted back into normal sinus rhythm although her symptoms have improved. Therefore Dr. Sprague reported that we can give her another 150 mg of flecainide and a bolus of 10 mg Cardizem and re-evaluate. If the patient does not convert she will need to be admitted for cardioversion tomorrow she will need to be NPO at midnight. Patient understands and agreeable to this plan. Time: 15:51 Reevaluation #3: Patient's symptoms have improved although she has not converted into normal sinus rhythm therefore I discussed this case with Dr. Sprague and he reported that she should be admitted at this time and p.o. at midnight and plan for cardioversion tomorrow morning. Patient is agreeable to this plan. Therefore discussing this case with Vivian Brooke nurse practitioner who will admit this patient. Time: 17:33 Medications Administered Discontinued Medications Generic Name Dose Route Start Last Admin Trade Name Freq PRN Reason Stop Dose Admin Diltiazem HCl 10 mg 12/22/22 13:38 12/22/22 13:44 Diltiazem Hcl 50 Mg/10 Ml Vial IVPUSH 12/22/22 13:39 10 mg STAT STA Administration Diltiazem HCl 10 mg 12/22/22 15:51 12/22/22 16:17 Diltiazem Hcl 50 Mg/10 Ml Vial IVPUSH 12/22/22 15:52 10 mg STAT STA Administration Flecainide Acetate 150 mg 12/22/22 13:38 12/22/22 13:54 Flecainide Acetate 50 Mg Tablet PO 12/22/22 13:39 150 mg ONCE ONE Administration Flecainide Acetate 150 mg 12/22/22 15:51 12/22/22 16:38 Flecainide Acetate 50 Mg Tablet PO 12/22/22 15:52 150 mg ONCE ONE Administration Metoprolol Tartrate 5 mg 12/22/22 11:24 12/22/22 11:31 Metoprolol Tartrate 5 Mg/5 Ml Vial IVPUSH 12/22/22 11:25 5 mg ONCE ONE Administration Metoprolol Tartrate 5 mg 12/22/22 12:24 12/22/22 12:39 Metoprolol Tartrate 5 Mg/5 Ml Vial IVPUSH 12/22/22 12:25 5 mg ONCE ONE Administration Metoprolol Tartrate 5 mg 12/22/22 13:13 12/22/22 13:25 Metoprolol Tartrate 5 Mg/5 Ml Vial IVPUSH 12/22/22 13:14 5 mg ONCE ONE Administration Medical Decision Making Consult Healthcare Provider Management of the patient was discussed with: Fly Tier (Dr. Sprague [facility] [employer]) Lab Data MDM Lab Attestation statement: I reviewed the patient's lab results. 12/22/22 10:59 12/22/22 10:59 Labs: Lab Results 12/22/22 12/22/22 12/22/22 Range/Units 10:59 10:59 10:59 WBC 7.6 (4.8-10.8) X10*3/uL RBC 5.28 D (4.20-5.50) X10*6/uL Hgb 15.1 D (12.0-16.0) g/dl Hct 45.6 D (37.0-47.0) % MCV 86.4 (80.0-98.0) fL MCH 28.6 (27.0-33.0) pg MCHC 33.1 (31.0-35.0) g/dl RDW 13.5 (11.0-16.0) % Plt Count 226 (160-400) X10*3/uL MPV 10.0 (9.4-12.3) fL Immature Gran % (Auto) 0.1 (0.0-0.4) % Neut % (Auto) 73.8 H (45-73) % Lymph % (Auto) 15.7 L (20-40) % [place] % (Auto) 8.2 (2-11) % Eos % (Auto) 1.8 (0-4) % Baso % (Auto) 0.4 (0-2) % Lymph # (Auto) 1.2 (1.2-4.9) X10*3/uL [place] # (Auto) 0.6 (0.1-1.2) X10*3/uL Eos # (Auto) 0.1 (0.0-0.4) X10*3/uL Baso # (Auto) 0.0 (0.0-0.2) X10*3/uL Abs Immat Gran (auto) 0.01 (0.00-0.03) X10*3/uL Absolute Neuts (auto) 5.6 (2.0-8.3) x10*3/uL Absolute Nucleated RBC 0.000 (0.0-0.012) X10*3/uL Nucleated RBC % (auto) 0.0 (0.0-0.2) /100WBC Sodium 142 (135-145) mmol/L Potassium 3.6 (3.3-5.1) mmol/L Chloride 108 (96-108) mmol/L Carbon Dioxide 24 (22-29) mmol/L Anion Gap 14 (12-20) BUN 15 (9-16) mg/dL Creatinine 0.73 (0.5-1.4) mg/dL Estim Creat Clear Calc 104.2 Estimated GFR > 60 Random Glucose 216 H (60-115) mg/dL Calcium 9.0 (8.4-10.2) mg/dL Magnesium (1.6-2.6) mg/dL Total Bilirubin 1.2 H (0.0-1.0) mg/dL AST 14 (5-31) U/L ALT 15 (0-31) U/L Alkaline Phosphatase 118 H (39-117) U/L Troponin I High Sens < 3.5 (<3.5-17.0) ng/L B-Natriuretic Peptide (<100) pg/mL Total Protein 6.3 L (6.5-8.0) g/dL Albumin 3.8 (3.5-5.0) g/dL Influenza Type A (PCR) (Negative) Influenza Type B (PCR) (Negative) RSV RNA Qual (PCR) (Negative) SARS-CoV-2 RNA (RT-PCR) (Negative) 12/22/22 12/22/22 12/22/22 Range/Units 11:24 11:24 12:11 WBC (4.8-10.8) X10*3/uL RBC (4.20-5.50) X10*6/uL Hgb (12.0-16.0) g/dl Hct (37.0-47.0) % MCV (80.0-98.0) fL MCH (27.0-33.0) pg MCHC (31.0-35.0) g/dl RDW (11.0-16.0) % Plt Count (160-400) X10*3/uL MPV (9.4-12.3) fL Immature Gran % (Auto) (0.0-0.4) % Neut % (Auto) (45-73) % Lymph % (Auto) (20-40) % [place] % (Auto) (2-11) % Eos % (Auto) (0-4) % Baso % (Auto) (0-2) % Lymph # (Auto) (1.2-4.9) X10*3/uL [place] # (Auto) (0.1-1.2) X10*3/uL Eos # (Auto) (0.0-0.4) X10*3/uL Baso # (Auto) (0.0-0.2) X10*3/uL Abs Immat Gran (auto) (0.00-0.03) X10*3/uL Absolute Neuts (auto) (2.0-8.3) x10*3/uL Absolute Nucleated RBC (0.0-0.012) X10*3/uL Nucleated RBC % (auto) (0.0-0.2) /100WBC Sodium (135-145) mmol/L Potassium (3.3-5.1) mmol/L Chloride (96-108) mmol/L Carbon Dioxide (22-29) mmol/L Anion Gap (12-20) BUN (9-16) mg/dL Creatinine (0.5-1.4) mg/dL Estim Creat Clear Calc Estimated GFR Random Glucose (60-115) mg/dL Calcium (8.4-10.2) mg/dL Magnesium 1.7 (1.6-2.6) mg/dL Total Bilirubin (0.0-1.0) mg/dL AST (5-31) U/L ALT (0-31) U/L Alkaline Phosphatase (39-117) U/L Troponin I High Sens (<3.5-17.0) ng/L B-Natriuretic Peptide 222 H (<100) pg/mL Total Protein (6.5-8.0) g/dL Albumin (3.5-5.0) g/dL Influenza Type A (PCR) NEGATIVE (Negative) Influenza Type B (PCR) NEGATIVE (Negative) RSV RNA Qual (PCR) NEGATIVE (Negative) SARS-CoV-2 RNA (RT-PCR) NEGATIVE (Negative) Independent Interpretation I performed an independent interpretation of an: EKG (Atrial Fibrillation with RVR with a rate of [address] abnormalities. No acute ischemic changes are noted. Sinilar when compared to prior EKGs. ) and Plain X-Ray Interpretation: EXAMINATION: XR CHEST CLINICAL INFORMATION: Shortness of breath. COMPARISON: July 23, 2022. TECHNIQUE: Portable AP view of the chest was obtained. XR/XR chest 1V FINDINGS/IMPRESSION: ? The study is limited by portable technique, low lung volumes, patient body habitus. ? There is no gross acute radiographic finding. ? No focal infiltrate, effusion, pneumothorax is seen. ? The cardiac silhouette is suboptimally evaluated. ? There are mild degenerative changes of the shoulders and spine. Radiology Impression Discussion of test interpretation with radiology: I have reviewed the radiologist's reading. Independent Historian Clinical information obtained from an independent historian. History obtained from or confirmed by: Spouse External Record Review External record reviewed: Inpatient record, Office record, Outpatient record, Prior outpatient labs, Prior outpatient radiology, Primary care record and Outside ED record Chronic Conditions Patient?s care impacted by: Hypertension Critical Care Time Critical Care Time Critical Care Time: Yes Total Critical Care Time: 60 Attestation: I personally attest to this time spent taking care of the patient Discharge Plan Discharge Clinical Impression: Atrial fibrillation with rapid ventricular response Patient Disposition: Admitted As Inpatient
[2022-12-22 13:23] LABS: Influenza A PCR NEGATIVE (Negative); Influenza B PCR NEGATIVE (Negative); Resp Syncy Virus RNA Qual PCR NEGATIVE (Negative); SARS COV2 PCR INHOUSE NEGATIVE (Negative)
[2022-12-22] MEDS: dilTIAZem HCL 50 MG/10 ML VIAL 10 MG IVPUSH ×2 (13:44→16:17)
[2022-12-22] MEDS: Flecainide Acetate 50 MG TABLET 150 MG PO ×2 (13:54→16:38)
--- NOTE | 2022-12-22 17:36 | P.HPHOSP_ITS ---
History of Present Illness Date of Service: 12/22/22 Chief Complaint: Heart palpitations 66-year-old woman presenting to the ER with increased anxiety in shortness of breath that started this morning. She reports that she usually monitors her heart rate on her smart watch and her heart rate was unchanged up to 150 today and the EKG on the smart watch was inconclusive therefore she decided to come to the ER out of concern for being in atrial fibrillation again. She had a successful cardioversion in July of 2022 and reports compliance with all of her medications. She denied chest pain, nausea, vomiting, diarrhea, loss of consciousness. She recently got her COVID booster on 12/20/2022 and had been feel ing congested for a few days. In the ER she received multiple doses of metoprolol, flecainide and diltiazem with continued rapid ventricular response therefore patient will be admitted for management of this with cardioversion tomorrow. Review of Systems Review of Systems: Denies any recent fever chills or decrease in appetite respiratory denies any shortness of breath coverage production cardiovascular is adjustment of any PND or edema gastrointestinal denies any dysphagia abdominal pain nausea vomiting or diarrhea genitourinary denies any dysuria frequency or hematuria musculoskeletal denies any joint pain or swelling neuropsych denies any weakness or seizures all other systems reviewed are negative [facility] Medical History Asthma exacerbation Bronchial asthma Bronchitis History of cardioversion HTN (hypertension) MDD (major depressive disorder) Morbid obesity JIMBO on CPAP Post covid-19 condition, unspecified Surgical History Anal fistula H/O colonoscopy H/O umbilical hernia repair History of cholecystectomy History of hysterectomy for cancer Hx of laparoscopic gastric banding Social History Household Members: Spouse Housing: House Do you presently have visiting nurse or other home services: No Alcohol intake: current Alcohol intake frequency: does not drink Patient Tobacco Use Status: Former Tobacco user Quit Date: 1992 Tobacco use type: Cigarette Years Smoked: 25 +/- Second Hand Smoke Exposure: No Use of substances other than those prescribed or required for medical reasons: No Are you DNR?: No Advance Directives: No Advance Directives Information Provided: Yes Advance Directives on File: No service: No Current occupational status: unemployed Meds Allergies Allergy/AdvReac Type Severity Reaction Status Date / Time adhesive tape [ADHESIVE TAPE] Allergy Intermediate BLISTERS Verified 11/27/22 14:49 Active Medications: Current Medications Pharmacy Consult (Consult Rx Perform Med Rec) 1 each MISCELLANE ONCE PRN PRN Reason: Consult order Home Medications Medication Instructions Recorded Confirmed Last Taken Type paroxetine HCl 30 mg tablet 45 mg PO DAILY 10/01/20 12/22/22 12/22/22 History mecobalamin (vitamin B12) 5,000 5,000 mcg PO MOWEFR@1000 08/06/22 12/22/22 Unknown History mcg disintegrating tablet rosuvastatin 10 mg tablet 10 mg PO BEDTIME 08/06/22 12/22/22 12/21/22 History omeprazole 20 mg capsule,delayed 20 mg PO DAILY@0630 10/14/22 12/22/22 12/22/22 History release budesonide-formoterol HFA 160 2 puff inhalation BID 12/22/22 12/22/22 12/22/22 History mcg-4.5 mcg/actuation aerosol inhaler (Symbicort) Physical Exam Vital Signs and Narrative: Vital Signs: Last Vital Signs Temp 97.9 F 12/22/22 10:52 Pulse 121 H 12/22/22 12:38 Resp 16 12/22/22 12:38 BP 125/85 12/22/22 12:38 Pulse Ox 99 12/22/22 12:38 O2 Del Method 12/22/22 12:38 BMI result Body Mass Index 56.7 Appearing in no acute distress head is normocephalic atraumatic eyes pupils are PERRLA sclera is anicteric mouth throat mucous membranes are intact and moist neck is supple no lymphadenopathy, no JVD noted lung sounds are clear to auscultation heart IRIR positive bowel sounds, abdomen is soft, nontender neuro patient is alert x3, no focal deficits Results Labs 12/22/22 10:59 12/22/22 10:59 Labs: Laboratory Results - last 24 hr 12/22/22 12/22/22 12/22/22 10:59 10:59 10:59 MCV 86.4 MCH 28.6 MCHC 33.1 RDW 13.5 Plt Count 226 MPV 10.0 Immature Gran % (Auto) 0.1 Neut % (Auto) 73.8 H Lymph % (Auto) 15.7 L [place] % (Auto) 8.2 Eos % (Auto) 1.8 Baso % (Auto) 0.4 Lymph # (Auto) 1.2 [place] # (Auto) 0.6 Eos # (Auto) 0.1 Baso # (Auto) 0.0 Abs Immat Gran (auto) 0.01 Absolute Neuts (auto) 5.6 Absolute Nucleated RBC 0.000 Nucleated RBC % (auto) 0.0 Anion Gap 14 Estim Creat Clear Calc 104.2 Estimated GFR > 60 Random Glucose 216 H Calcium 9.0 Magnesium Total Bilirubin 1.2 H AST 14 ALT 15 Alkaline Phosphatase 118 H Troponin I High Sens < 3.5 B-Natriuretic Peptide Total Protein 6.3 L Albumin 3.8 Influenza Type A (PCR) Influenza Type B (PCR) RSV RNA Qual (PCR) SARS-CoV-2 RNA (RT-PCR) 12/22/22 12/22/22 12/22/22 11:24 11:24 12:11 MCV MCH MCHC RDW Plt Count MPV Immature Gran % (Auto) Neut % (Auto) Lymph % (Auto) [place] % (Auto) Eos % (Auto) Baso % (Auto) Lymph # (Auto) [place] # (Auto) Eos # (Auto) Baso # (Auto) Abs Immat Gran (auto) Absolute Neuts (auto) Absolute Nucleated RBC Nucleated RBC % (auto) Anion Gap Estim Creat Clear Calc Estimated GFR Random Glucose Calcium Magnesium 1.7 Total Bilirubin AST ALT Alkaline Phosphatase Troponin I High Sens B-Natriuretic Peptide 222 H Total Protein Albumin Influenza Type A (PCR) NEGATIVE Influenza Type B (PCR) NEGATIVE RSV RNA Qual (PCR) NEGATIVE SARS-CoV-2 RNA (RT-PCR) NEGATIVE Imaging Radiologist's Impressions: Impressions Chest X-Ray 12/22/22 11:44 FINDINGS/IMPRESSION: The study is limited by portable technique, low lung volumes, patient body habitus. There is no gross acute radiographic finding. No focal infiltrate, effusion, pneumothorax is seen. The cardiac silhouette is suboptimally evaluated. There are mild degenerative changes of the shoulders and spine. Assessment and Plan (1) Atrial fibrillation with rapid ventricular response: Status: Acute Plan 67-year-old woman admitted with atrial fibrillation with rapid ventricular response Atrial fibrillation with rapid ventricular response Recent successful cardioversion in July of 2022 Patient now in atrial fibrillation once again Treated with multiple medications in the ER unsuccessfully will admit, plan for cardioversion tomorrow as per Cardiology NPO after midnight Titrate Cardizem drip Monitor on telemetry Hypertension Stable blood pressure Continue home medications Asthma No exacerbation Albuterol as needed JIMBO CPAP Morbid obesity. BMI 56.7 Discussed importance of weight management as this may be contributing to worsening of other comorbidities DVT prophylaxis with Attending Dr. Mendoza full code DISPO likely home tomorrow after cardioversion med rec pending obs Time Spent With Patient Time: Total time managing care of this patient today ____ minutes. Quality Stroke Does the patient have a stroke diagnosis?: No VTE Prior VTE?: No VTE Risk Level:: Medical - moderate - high VTE Device Contraindication: Treatment Not Indicated VTE Drug Contraindication: N/A - Med Ordered
--- NOTE | 2022-12-22 19:06 | PHA.MEDREC ---
MED REC COMPLETE, NO ISSUES Pharmacy Consult ? Medication Reconciliation Pharmacy has completed the medication reconciliation.
[2022-12-22 19:17] VITALS: BP 135/81; PULSE 106; RESP 20; TEMP 36.4; O2SAT 95
--- NOTE | 2022-12-22 19:22 | PC.NURSE ---
this rn assumed care of pt @ 1900. pt at bedside eating dinner at this time. pt remains connected to rn cardiac afib 100s. pt made aware of NPO after midnight status. pt a+o x 4
[2022-12-22 20:00] VITALS: BP 150/78; PULSE 92; TEMP 36.5; O2SAT 96
[2022-12-22 23:44] VITALS: BP 150/76; PULSE 94; RESP 17; TEMP 36.2; O2SAT 97
[2022-12-23] VITALS (14 sets, daily range): BP systolic 68–166; BP diastolic 50–97; PULSE 61–107; RESP 14–20; TEMP 36.1–36.7; O2SAT 94–100
--- NOTE | 2022-12-23 | ECG_ITS ---
Test Reason : cardioversion post Blood Pressure : / mmHG Vent. Rate : 063 BPM Atrial Rate : 063 BPM P-R Int : 222 ms QRS Dur : 088 ms QT Int : 454 ms P-R-T Axes : 094 -03 061 degrees QTc Int : 464 ms Sinus rhythm with 1st degree A-V block Nonspecific ST and T wave abnormality Abnormal ECG When compared with ECG of 22-DEC-2022 11:06, Sinus rhythm has replaced Atrial fibrillation Vent. rate has decreased BY 52 BPM Referred By: Vivian Brooke Electronically Signed By:LANDRY HAMM MD
[2022-12-23] MEDS: Apixaban 5 MG TABLET PO ×3 (00:11→20:20)
[2022-12-23] MEDS: 0.9 % Sodium Chloride Flush 3 ML SYRINGE IVFLUSH ×4 (00:12→20:22)
[2022-12-23 07:43] LABS: MANUAL DIFF FLAG NO
[2022-12-23 07:47] LABS: Basophils Percent Auto 0.5 % (0-2); Eosinophils Absolute Auto 0.2 X10*3/uL (0.0-0.4); Eosinophils Percent Auto 3.2 % (0-4); Hematocrit 43.2 % (37.0-47.0); Hemoglobin 14.4 g/dl (12.0-16.0); Imm Gran Abs Auto 0.02 X10*3/uL (0.00-0.03); Imm Gran Pct Auto 0.3 % (0.0-0.4); Lymphocytes Absolute Auto 2.2 X10*3/uL (1.2-4.9); Lymphocytes Percent Auto 34.8 % (20-40); Mean Corpuscular HGB Conc 33.3 g/dl (31.0-35.0); Mean Corpuscular Hemoglobin 29.1 pg (27.0-33.0); Mean Corpuscular Volume 87.3 fL (80.0-98.0); Mean Platelet Volume 10.7 fL (9.4-12.3); Monocytes Absolute Auto 0.7 X10*3/uL (0.1-1.2); Monocytes Percent Auto 10.3 % (2-11); Neutrophils Absolute Auto 3.2 x10*3/uL (2.0-8.3); Neutrophils Percent Auto 50.9 % (45-73); Platelet Count 215 X10*3/uL (160-400); Red Blood Count 4.95 X10*6/uL (4.20-5.50); Red Cell Distribution Width 13.7 % (11.0-16.0); White Blood Count 6.3 X10*3/uL (4.8-10.8)
[2022-12-23 08:11] LABS: B Type Natriuretic Peptide 327 pg/mL (<100)
[2022-12-23 08:16] LABS: Alanine Aminotransferase 12 U/L (0-31); Albumin Level 3.5 g/dL (3.5-5.0); Alkaline Phosphatase 100 U/L (39-117); Anion Gap 16 (12-20); Aspartate Amino Transferase 11 U/L (5-31); Bilirubin Total 1.2 mg/dL (0.0-1.0); Blood Urea Nitrogen 15 mg/dL (9-16); Calcium 9.1 mg/dL (8.4-10.2); Carbon Dioxide 28 mmol/L (22-29); Chloride 105 mmol/L (96-108); Creatinine Clr Calc Pharmacy 110.2; Estimated Glomerular Filt Rate > 60; Glucose Random 131 mg/dL (60-115); Potassium 3.9 mmol/L (3.3-5.1); Sodium 145 mmol/L (135-145); Total Protein 5.7 g/dL (6.5-8.0)
[2022-12-23] MEDS: Furosemide 40 MG TABLET PO (09:55)
[2022-12-23] MEDS: Metoprolol Succinate ER 50 MG TAB.ER.24H PO (09:55)
--- NOTE | 2022-12-23 10:10 | PM.CNCAR ---
History of Present Illness History of Present Illness Date of Service: 12/23/22 Requesting physician: Vivian Brooke Consult reason: atrial fibrillation Chief complaint: Afib RVR Narrative: I was consulted to see Gabriela in cardiology consultation today for recurrent atrial fibrillation. She is a 67-year-old woman with prior history of atrial fibrillation, in July along with diastolic heart failure at which time she was cardioverted and started on amiodarone and oral anticoagulation. She also has prior history of obstructive sleep apnea, hypertension, morbid obesity. Patient has been using a CPAP regularly. A blood pressures been well controlled. She was then treated for about a month or month and half with amiodarone and subsequently switched to flecainide therapy. Last seen in the office in September at which time she was doing well and in sinus rhythm. She came to the hospital yesterday with sudden-onset shortness of breath and noticed on a watch at heart rate was rapid and irregular. She knew that she might be back in atrial fibrillation therefore came to the emergency room. In the emergency room she was treated with rate control and was try to be cardioverted chemically with additional dose of flecainide but remained in atrial fibrillation therefore was admitted. She is NPO currently. She says at rest or shortness of breath is not bad. She denies any clear orthopnea. No leg edema. She has been taking all her medications regularly. She also has been taking oral anticoagulation religiously. Review of Systems Constitutional: Constitutional: Reports no additional constitutional complaints Cardiovascular: Cardiovascular: Reports rapid heart rate, Reports Loss of Consciousness, Reports palpitations and Reports dyspnea on exertion Respiratory: Respiratory: Reports no additional respiratory complaints and Reports dyspnea on exertion Gastrointestinal: Gastrointestinal: Reports no additional gastrointestinal complaints Genitourinary: Genitourinary: Reports no additional female genitourinary complaints Musculoskeletal: Musculoskeletal: Reports no additional musculoskeletal complaints Integumentary/Breasts: Skin/Breast: Reports system reviewed and no additional complaints, except as docu Neurologic: Reports system reviewed and no additional complaints, except as documented Psychiatric: Psychiatric: Reports no additional psychiatric complaints Endocrine: Endocrine: Reports palpitations PMFSH Past Medical History Medical History Asthma exacerbation Bronchial asthma Bronchitis History of cardioversion HTN (hypertension) MDD (major depressive disorder) Morbid obesity JIMBO on CPAP Post covid-19 condition, unspecified Surgical History Surgical History Anal fistula H/O colonoscopy H/O umbilical hernia repair History of cholecystectomy History of hysterectomy for cancer Hx of laparoscopic gastric banding Social History Social History Household Members: Spouse Housing: House Do you presently have visiting nurse or other home services: No Alcohol intake: current Alcohol intake frequency: holidays/special occasions only Patient Tobacco Use Status: Former Tobacco user Quit Date: 1992 Tobacco use type: Cigarette Years Smoked: 25 +/- Second Hand Smoke Exposure: No Advance Directives: No Advance Directives Information Provided: Yes service: No Current occupational status: unemployed Meds Allergies Allergy/AdvReac Type Severity Reaction Status Date / Time adhesive tape [ADHESIVE TAPE] Allergy Intermediate BLISTERS Verified 11/27/22 14:49 Active Medications: Current Medications Acetaminophen (Acetaminophen 325 Mg Tablet) 650 mg PO Q6H PRN PRN Reason: Pain, Mild (Pain Scale 1-3) Albuterol Sulfate (Albuterol Sulfate 90 Mcg 8 Gm Inhaler) 2 puff INHALE Q4H PRN PRN Reason: shortness of breath or wheezing Apixaban (Apixaban 5 Mg Tablet) 5 mg PO BID [facility] Last Admin: 12/23/22 09:55 Dose: 5 mg Atorvastatin Calcium (Atorvastatin Calcium 40 Mg Tablet) 40 mg PO BEDTIME [facility] Flecainide Acetate (Flecainide Acetate 50 Mg Tablet) 50 mg PO Q12H [facility] Fluticasone/Vilanterol (Fluticasone/Vilanterol 200/25 Blst.W.Dev) 1 puff INHALE RDAILY [facility] Furosemide (Furosemide 40 Mg Tablet) 40 mg PO DAILY [facility]; Protocol Last Admin: 12/23/22 09:55 Dose: 40 mg Metoprolol Succinate (Metoprolol Succinate Er 50 Mg Tab.Er.24h) 50 mg PO DAILY [facility]; Protocol Last Admin: 12/23/22 09:55 Dose: 50 mg Multivitamins/Vitamin C (Multivitamin Tablet) 1 tab PO DAILY [facility] Omeprazole (Omeprazole 20 Mg Capsule.Dr) 20 mg PO DAILY@0630 [facility] Ondansetron HCl (Ondansetron Hcl 4 Mg/2 Ml Vial) 4 mg IVPUSH Q8H PRN PRN Reason: Nausea and Vomiting Paroxetine HCl (Paroxetine Hcl 30 Mg Tablet) 45 mg PO DAILY [facility] Pharmacy Consult (Consult Rx Perform Med Rec) 1 each MISCELLANE ONCE PRN PRN Reason: Consult order Sodium Chloride (0.9 % Sodium Chloride Flush 3 Ml Syringe) 3 ml IVFLUSH QSHIFT [facility] Last Admin: 12/23/22 09:55 Dose: 3 ml Valsartan (Valsartan 160 Mg Tablet) 160 mg PO DAILY [facility]; Protocol Vitamin D (Cholecalciferol (Vitamin D3) 25 Mcg Tablet) 25 mcg PO DAILY [facility] Home Medications Medication Instructions Recorded Confirmed Last Taken Type paroxetine HCl 30 mg tablet 45 mg PO DAILY 10/01/20 12/22/22 12/22/22 History mecobalamin (vitamin B12) 5,000 5,000 mcg PO MOWEFR@1000 08/06/22 12/22/22 Unknown History mcg disintegrating tablet rosuvastatin 10 mg tablet 10 mg PO BEDTIME 08/06/22 12/22/22 12/21/22 History omeprazole 20 mg capsule,delayed 20 mg PO DAILY@0630 10/14/22 12/22/22 12/22/22 History release budesonide-formoterol HFA 160 2 puff inhalation BID 12/22/22 12/22/22 12/22/22 History mcg-4.5 mcg/actuation aerosol inhaler (Symbicort) Physical Exam Vital Signs: Vital Signs: Last Vital Signs Temp 97.2 F 12/23/22 07:58 Pulse 70 12/23/22 07:58 Resp 20 12/23/22 07:58 BP 141/97 H 12/23/22 07:58 Pulse Ox 96 12/23/22 07:58 O2 Del Method 12/23/22 07:58 BMI result Body Mass Index 56.7 Const: General: cooperative, comfortable, no acute distress, alert and awake Nutritional Appearance: obese morbidly obese Orientation/consciousness: patient oriented x3 Limitations: no limitations HEENT: Head: Yes normocephalic and Yes atraumatic Neck: Neck: Yes trachea midline, Yes supple and Yes no JVD Chest: Chest palpation & inspection: normal inspection of the chest Resp: Effort & Inspection: normal respiratory effort Auscultation: clear to auscultation bilaterally Cardio: Jugular venous distension: no JVD Rate: tachycardic Rhythm: abnormal rhythm irregularly irregular Heart sounds: S1 normal heart sound present, S2 normal heart sound present, no click, no gallops, no murmurs and no rubs GI: Auscultation: normal bowel sounds Skin: General skin exam: no rashes or lesions noted Neuro: General: patient oriented x3 and no focal motor deficits Extrem: General: Yes no clubbing, cyanosis or edema Objective Labs and Meds 12/23/22 06:44 12/23/22 06:44 Lab results: Laboratory Results - last 24 hr 12/22/22 12/22/22 12/22/22 10:59 10:59 10:59 WBC 7.6 RBC 5.28 D Hgb 15.1 D Hct 45.6 D MCV 86.4 MCH 28.6 MCHC 33.1 RDW 13.5 Plt Count 226 MPV 10.0 Immature Gran % (Auto) 0.1 Neut % (Auto) 73.8 H Lymph % (Auto) 15.7 L [place] % (Auto) 8.2 Eos % (Auto) 1.8 Baso % (Auto) 0.4 Lymph # (Auto) 1.2 [place] # (Auto) 0.6 Eos # (Auto) 0.1 Baso # (Auto) 0.0 Abs Immat Gran (auto) 0.01 Absolute Neuts (auto) 5.6 Absolute Nucleated RBC 0.000 Nucleated RBC % (auto) 0.0 Sodium 142 Potassium 3.6 Chloride 108 Carbon Dioxide 24 Anion Gap 14 BUN 15 Creatinine 0.73 Estim Creat Clear Calc 104.2 Estimated GFR > 60 Random Glucose 216 H Calcium 9.0 Magnesium Total Bilirubin 1.2 H AST 14 ALT 15 Alkaline Phosphatase 118 H Troponin I High Sens < 3.5 B-Natriuretic Peptide Total Protein 6.3 L Albumin 3.8 Influenza Type A (PCR) Influenza Type B (PCR) RSV RNA Qual (PCR) SARS-CoV-2 RNA (RT-PCR) 12/22/22 12/22/22 12/22/22 11:24 11:24 12:11 WBC RBC Hgb Hct MCV MCH MCHC RDW Plt Count MPV Immature Gran % (Auto) Neut % (Auto) Lymph % (Auto) [place] % (Auto) Eos % (Auto) Baso % (Auto) Lymph # (Auto) [place] # (Auto) Eos # (Auto) Baso # (Auto) Abs Immat Gran (auto) Absolute Neuts (auto) Absolute Nucleated RBC Nucleated RBC % (auto) Sodium Potassium Chloride Carbon Dioxide Anion Gap BUN Creatinine Estim Creat Clear Calc Estimated GFR Random Glucose Calcium Magnesium 1.7 Total Bilirubin AST ALT Alkaline Phosphatase Troponin I High Sens B-Natriuretic Peptide 222 H Total Protein Albumin Influenza Type A (PCR) NEGATIVE Influenza Type B (PCR) NEGATIVE RSV RNA Qual (PCR) NEGATIVE SARS-CoV-2 RNA (RT-PCR) NEGATIVE 12/23/22 12/23/22 12/23/22 06:44 06:44 06:44 WBC 6.3 RBC 4.95 Hgb 14.4 Hct 43.2 MCV 87.3 MCH 29.1 MCHC 33.3 RDW 13.7 Plt Count 215 MPV 10.7 Immature Gran % (Auto) 0.3 Neut % (Auto) 50.9 Lymph % (Auto) 34.8 [place] % (Auto) 10.3 Eos % (Auto) 3.2 Baso % (Auto) 0.5 Lymph # (Auto) 2.2 [place] # (Auto) 0.7 Eos # (Auto) 0.2 Baso # (Auto) 0.0 Abs Immat Gran (auto) 0.02 Absolute Neuts (auto) 3.2 Absolute Nucleated RBC 0.000 Nucleated RBC % (auto) 0.0 Sodium 145 Potassium 3.9 Chloride 105 Carbon Dioxide 28 Anion Gap 16 BUN 15 Creatinine 0.69 Estim Creat Clear Calc 110.2 Estimated GFR > 60 Random Glucose 131 H Calcium 9.1 Magnesium Total Bilirubin 1.2 H AST 11 ALT 12 Alkaline Phosphatase 100 Troponin I High Sens B-Natriuretic Peptide 327 H Total Protein 5.7 L Albumin 3.5 Influenza Type A (PCR) Influenza Type B (PCR) RSV RNA Qual (PCR) SARS-CoV-2 RNA (RT-PCR) EKG shows atrial fibrillation with rapid ventricular response with QS pattern in lead V1 V2 with nonspecific ST T wave changes Imaging Radiologist's impression: Impressions Chest X-Ray 12/22/22 11:44 FINDINGS/IMPRESSION: The study is limited by portable technique, low lung volumes, patient body habitus. There is no gross acute radiographic finding. No focal infiltrate, effusion, pneumothorax is seen. The cardiac silhouette is suboptimally evaluated. There are mild degenerative changes of the shoulders and spine. Assessment and Plan (1) Atrial fibrillation with rapid ventricular response: Status: Acute Atrial fibrillation rapid ventricular response, recurrent in this elderly woman with multiple risk factors including morbid obesity, hypertension and diastolic heart failure. Most likely reason for recurrences atrial structure abnormality. She is on flecainide 50 mg b.i.d. which is probably not going to be enough for her to maintain rhythm in the future. We discussed couple of options with her including increasing of flecainide doses to 150 mg b.i.d. with cardioversion to hopefully maintain rhythm. If she feels that approach she will require amiodarone therapy. She needs to be on flecainide 150 mg b.i.d. prior to trying to pursue cardioversion as might not be effective. She has been on oral anticoagulation religiously. Risk for post cardioversion stroke is low. This was discussed with her. We discussed the need for cardioversion including risk, benefits, alternatives 2nd opinion. She understands and agrees. In the long run aggressive weight loss has been shown to reduce recurrent atrial fibrillation and this findings were discussed with her. Continue CPAP therapy. If she does not cardioverted today, will require amiodarone loading and then probably follow-up in 2 weeks with outpatient cardioversion. Continue aggressive control blood pressure. Would increase Diovan to 320 mg daily. Will follow with her. Time Spent With Patient Time: Total time managing care of this patient today ____ minutes. Procedures Date of Service Date of Service: 12/23/22
--- NOTE | 2022-12-23 11:20 | P.CONAN_ITS ---
HPI - Anesthesia Eval Consult details Narrative: Atrial Fibrillation [facility] Active Problems Active Problems: All Active Problems (Updated 12/22/22 @ 15:52 by TEODORA Tse) Atrial fibrillation with rapid ventricular response (Acute) Bronchitis (Acute) Asthma exacerbation (Acute) PAF (paroxysmal atrial fibrillation) (Acute) Chronic diastolic heart failure (Acute) CHF (congestive heart failure) (Acute) MDD (major depressive disorder) (Acute) HTN (hypertension) (Acute) Chest pain (Acute) Atrial fibrillation (Acute) CHRISTIANSEN (dyspnea on exertion) (Acute) Post covid-19 condition, unspecified (Acute) COVID-19 (Acute) Morbid obesity (Acute) JIMBO on CPAP (Acute) Bronchial asthma (Acute) Past Medical History Medical History Asthma exacerbation Bronchial asthma Bronchitis History of cardioversion HTN (hypertension) MDD (major depressive disorder) Morbid obesity JIMBO on CPAP Post covid-19 condition, unspecified Family History Family history of problems with anesthesia: No Surgical History Surgical History Anal fistula H/O colonoscopy H/O umbilical hernia repair History of cholecystectomy History of hysterectomy for cancer Hx of laparoscopic gastric banding History of Problems with Anesthesia: Yes (See above. Surgery for gall bladder was in the 1980s. No problems with anesthesia since) Social History Social History Household Members: Spouse Housing: House Do you presently have visiting nurse or other home services: No Alcohol intake: current Alcohol intake frequency: does not drink Patient Tobacco Use Status: Former Tobacco user Quit Date: 1992 Tobacco use type: Cigarette Years Smoked: 25 +/- Second Hand Smoke Exposure: No Use of substances other than those prescribed or required for medical reasons: No Are you DNR?: No Advance Directives: No Advance Directives Information Provided: Yes Advance Directives on File: No service: No Current occupational status: unemployed Meds Allergies Allergy/AdvReac Type Severity Reaction Status Date / Time adhesive tape [ADHESIVE TAPE] Allergy Intermediate BLISTERS Verified 11/27/22 14:49 Active Medications: Current Medications Acetaminophen (Acetaminophen 325 Mg Tablet) 650 mg PO Q6H PRN PRN Reason: Pain, Mild (Pain Scale 1-3) Albuterol Sulfate (Albuterol Sulfate 90 Mcg 8 Gm Inhaler) 2 puff INHALE Q4H PRN PRN Reason: shortness of breath or wheezing Apixaban (Apixaban 5 Mg Tablet) 5 mg PO BID [facility] Last Admin: 12/23/22 09:55 Dose: 5 mg Atorvastatin Calcium (Atorvastatin Calcium 40 Mg Tablet) 40 mg PO BEDTIME [facility] Flecainide Acetate (Flecainide Acetate 50 Mg Tablet) 150 mg PO Q12H [facility] Fluticasone/Vilanterol (Fluticasone/Vilanterol 200/25 Blst.W.Dev) 1 puff INHALE RDAILY [facility] Furosemide (Furosemide 40 Mg Tablet) 40 mg PO DAILY [facility]; Protocol Last Admin: 12/23/22 09:55 Dose: 40 mg Metoprolol Succinate (Metoprolol Succinate Er 50 Mg Tab.Er.24h) 50 mg PO DAILY [facility]; Protocol Last Admin: 12/23/22 09:55 Dose: 50 mg Multivitamins/Vitamin C (Multivitamin Tablet) 1 tab PO DAILY [facility] Omeprazole (Omeprazole 20 Mg Capsule.Dr) 20 mg PO DAILY@30 [facility] Ondansetron HCl (Ondansetron Hcl 4 Mg/2 Ml Vial) 4 mg IVPUSH Q8H PRN PRN Reason: Nausea and Vomiting Paroxetine HCl (Paroxetine Hcl 30 Mg Tablet) 45 mg PO DAILY [facility] Pharmacy Consult (Consult Rx Perform Med Rec) 1 each MISCELLANE ONCE PRN PRN Reason: Consult order Sodium Chloride (0.9 % Sodium Chloride Flush 3 Ml Syringe) 3 ml IVFLUSH QSHIFT [facility] Last Admin: 12/23/22 09:55 Dose: 3 ml Valsartan (Valsartan 320 Mg Tablet) 320 mg PO DAILY [facility]; Protocol Vitamin D (Cholecalciferol (Vitamin D3) 25 Mcg Tablet) 25 mcg PO DAILY [facility] Home Medications Medication Instructions Recorded Confirmed Last Taken Type paroxetine HCl 30 mg tablet 45 mg PO DAILY 10/01/20 12/22/22 12/22/22 History mecobalamin (vitamin B12) 5,000 5,000 mcg PO MOWEFR@1000 08/06/22 12/22/22 Unknown History mcg disintegrating tablet rosuvastatin 10 mg tablet 10 mg PO BEDTIME 08/06/22 12/22/22 12/21/22 History omeprazole 20 mg capsule,delayed 20 mg PO DAILY@0630 10/14/22 12/22/22 12/22/22 History release budesonide-formoterol HFA 160 2 puff inhalation BID 12/22/22 12/22/22 12/22/22 History mcg-4.5 mcg/actuation aerosol inhaler (Symbicort) Exam Exam Date and Time: December 23, 2022 1120 Height,Weight and Vital Signs: Height 5 ft 3 in Weight 145.15 kg Last Vital Signs Temp 97.0 F 12/23/22 10:58 Pulse 107 H 12/23/22 10:58 Resp 18 12/23/22 10:58 BP 125/88 12/23/22 10:58 Pulse Ox 96 12/23/22 10:58 O2 Del Method 12/23/22 10:58 Pertinent Lab Results Pertinent Lab Results: Laboratory Tests 12/22/22 12/22/22 12/22/22 10:59 10:59 10:59 WBC 7.6 RBC 5.28 D Hgb 15.1 D Hct 45.6 D MCV 86.4 MCH 28.6 MCHC 33.1 RDW 13.5 Plt Count 226 MPV 10.0 Immature Gran % (Auto) 0.1 Neut % (Auto) 73.8 H Lymph % (Auto) 15.7 L [place] % (Auto) 8.2 Eos % (Auto) 1.8 Baso % (Auto) 0.4 Lymph # (Auto) 1.2 [place] # (Auto) 0.6 Eos # (Auto) 0.1 Baso # (Auto) 0.0 Abs Immat Gran (auto) 0.01 Absolute Neuts (auto) 5.6 Absolute Nucleated RBC 0.000 Nucleated RBC % (auto) 0.0 Sodium 142 Potassium 3.6 Chloride 108 Carbon Dioxide 24 Anion Gap 14 BUN 15 Creatinine 0.73 Estim Creat Clear Calc 104.2 Estimated GFR > 60 Random Glucose 216 H Calcium 9.0 Magnesium Total Bilirubin 1.2 H AST 14 ALT 15 Alkaline Phosphatase 118 H Troponin I High Sens < 3.5 B-Natriuretic Peptide Total Protein 6.3 L Albumin 3.8 Influenza Type A (PCR) Influenza Type B (PCR) RSV RNA Qual (PCR) SARS-CoV-2 RNA (RT-PCR) 12/22/22 12/22/22 12/22/22 11:24 11:24 12:11 WBC RBC Hgb Hct MCV MCH MCHC RDW Plt Count MPV Immature Gran % (Auto) Neut % (Auto) Lymph % (Auto) [place] % (Auto) Eos % (Auto) Baso % (Auto) Lymph # (Auto) [place] # (Auto) Eos # (Auto) Baso # (Auto) Abs Immat Gran (auto) Absolute Neuts (auto) Absolute Nucleated RBC Nucleated RBC % (auto) Sodium Potassium Chloride Carbon Dioxide Anion Gap BUN Creatinine Estim Creat Clear Calc Estimated GFR Random Glucose Calcium Magnesium 1.7 Total Bilirubin AST ALT Alkaline Phosphatase Troponin I High Sens B-Natriuretic Peptide 222 H Total Protein Albumin Influenza Type A (PCR) NEGATIVE Influenza Type B (PCR) NEGATIVE RSV RNA Qual (PCR) NEGATIVE SARS-CoV-2 RNA (RT-PCR) NEGATIVE 12/23/22 12/23/22 12/23/22 06:44 06:44 06:44 WBC 6.3 RBC 4.95 Hgb 14.4 Hct 43.2 MCV 87.3 MCH 29.1 MCHC 33.3 RDW 13.7 Plt Count 215 MPV 10.7 Immature Gran % (Auto) 0.3 Neut % (Auto) 50.9 Lymph % (Auto) 34.8 [place] % (Auto) 10.3 Eos % (Auto) 3.2 Baso % (Auto) 0.5 Lymph # (Auto) 2.2 [place] # (Auto) 0.7 Eos # (Auto) 0.2 Baso # (Auto) 0.0 Abs Immat Gran (auto) 0.02 Absolute Neuts (auto) 3.2 Absolute Nucleated RBC 0.000 Nucleated RBC % (auto) 0.0 Sodium 145 Potassium 3.9 Chloride 105 Carbon Dioxide 28 Anion Gap 16 BUN 15 Creatinine 0.69 Estim Creat Clear Calc 110.2 Estimated GFR > 60 Random Glucose 131 H Calcium 9.1 Magnesium Total Bilirubin 1.2 H AST 11 ALT 12 Alkaline Phosphatase 100 Troponin I High Sens B-Natriuretic Peptide 327 H Total Protein 5.7 L Albumin 3.5 Influenza Type A (PCR) Influenza Type B (PCR) RSV RNA Qual (PCR) SARS-CoV-2 RNA (RT-PCR) Airway Mallampati Class: III TM Dist: >3cm Neck ROM: Full Loose/Missing/Broken Teeth: Yes (mouth full of caps permanent globally) Heart: irreg irreg s1s2 Lungs: cta b/l Assessment and Plan Assessment Anesthesia Assessment: Anesthesia Plan Discussed and Chart Reviewed Final Anesthetic Review Family History of Problems with Anesthesia: No History of Problems with Anesthesia: Yes (See above. Surgery for gall bladder was in the 1980s. No problems with anesthesia since) NPO: Yes ASA Class: IV Final Preanesthetic Review: No Changes in Pt Med Stat, Meds/Allgs Chart Reviewed, Consent Obtained/Reviewed and Anes Risks/Benef Reviewed Patient Risk: High Procedure Risk: Intermediate Assessment/Block/Sedation in SS: Assess/Block/Sedation-SS Anesthetic Plan Anesthetic Plan: GA and Agree w/ Assess. and Plan Disposition: Standard PACU
--- NOTE | 2022-12-23 11:35 | MHC.CM.PN ---
RAVI 12/23/22 FEMALE 67 DX AFIB RVR Plan is for a Cardioversion today. She lives w her . She is independent, works and drives. DP home self care family will provide transportation home. VAX x4 A new HCP has been documented. CM will follow for discharge.
[2022-12-23] MEDS: Flecainide Acetate 50 MG TABLET 150 MG PO ×2 (11:46→20:20)
--- NOTE | 2022-12-23 15:18 | P.PNIM_ITS ---
Subjective Subjective Date of Service: 12/23/22 Review of Systems Follow up Afib rvr No chest pain or sob Status post cardioversion Physical Exam Vital Signs: Vital Signs: Last Vital Signs Temp 97.0 F 12/23/22 10:58 Pulse 107 H 12/23/22 10:58 Resp 18 12/23/22 10:58 BP 125/88 12/23/22 10:58 Pulse Ox 96 12/23/22 10:58 O2 Del Method 12/23/22 10:58 BMI result Body Mass Index 56.7 Appearing in no acute distress lung sounds are clear to auscultation heart IRIR positive bowel sounds, abdomen is soft, nontender neuro patient is alert x3, no focal deficits Objective Data Active Medications Acetaminophen (Acetaminophen 325 Mg Tablet) 650 mg PO Q6H PRN PRN Reason: Pain, Mild (Pain Scale 1-3) Acetaminophen (Acetaminophen 325 Mg Tablet) 650 mg PO ONCE PRN PRN Reason: Pain, Mild (Pain Scale 1-3) Albuterol Sulfate (Albuterol Sulfate 90 Mcg 8 Gm Inhaler) 2 puff INHALE Q4H PRN PRN Reason: shortness of breath or wheezing Apixaban (Apixaban 5 Mg Tablet) 5 mg PO BID [facility] Last Admin: 12/23/22 09:55 Dose: 5 mg Documented By: VIRAL Atorvastatin Calcium (Atorvastatin Calcium 40 Mg Tablet) 40 mg PO BEDTIME [facility] Flecainide Acetate (Flecainide Acetate 50 Mg Tablet) 150 mg PO Q12H [facility] Fluticasone/Vilanterol (Fluticasone/Vilanterol 200/25 Blst.W.Dev) 1 puff INHALE RDAILY [facility] Furosemide (Furosemide 40 Mg Tablet) 40 mg PO DAILY [facility]; Protocol Last Admin: 12/23/22 09:55 Dose: 40 mg Documented By: VIRAL Metoprolol Succinate (Metoprolol Succinate Er 50 Mg Tab.Er.24h) 50 mg PO DAILY [facility]; Protocol Last Admin: 12/23/22 09:55 Dose: 50 mg Documented By: VIRAL Multivitamins/Vitamin C (Multivitamin Tablet) 1 tab PO DAILY [facility] Omeprazole (Omeprazole 20 Mg Capsule.Dr) 20 mg PO DAILY@0630 [facility] Ondansetron HCl (Ondansetron Hcl 4 Mg/2 Ml Vial) 4 mg IVPUSH Q8H PRN PRN Reason: Nausea and Vomiting Ondansetron HCl (Ondansetron Hcl 4 Mg/2 Ml Vial) 4 mg IVPUSH ONCE PRN PRN Reason: Nausea and Vomiting Oxycodone HCl (Oxycodone Hcl Immed Release 5 Mg Tablet) 5 mg PO ONCE PRN PRN Reason: Pain, Severe (Pain Scale 7-10) Paroxetine HCl (Paroxetine Hcl 30 Mg Tablet) 45 mg PO DAILY [facility] Pharmacy Consult (Consult Rx Perform Med Rec) 1 each MISCELLANE ONCE PRN PRN Reason: Consult order Sodium Chloride (0.9 % Sodium Chloride Flush 3 Ml Syringe) 3 ml IVFLUSH QSHIFT [facility] Last Admin: 12/23/22 09:55 Dose: 3 ml Documented By: VIRAL Valsartan (Valsartan 320 Mg Tablet) 320 mg PO DAILY [facility]; Protocol Vitamin D (Cholecalciferol (Vitamin D3) 25 Mcg Tablet) 25 mcg PO DAILY [facility] Labs 12/23/22 06:44 12/23/22 06:44 Labs: Laboratory Results - last 24 hr 12/23/22 12/23/22 12/23/22 06:44 06:44 06:44 MCV 87.3 MCH 29.1 MCHC 33.3 RDW 13.7 Plt Count 215 MPV 10.7 Immature Gran % (Auto) 0.3 Neut % (Auto) 50.9 Lymph % (Auto) 34.8 [place] % (Auto) 10.3 Eos % (Auto) 3.2 Baso % (Auto) 0.5 Lymph # (Auto) 2.2 [place] # (Auto) 0.7 Eos # (Auto) 0.2 Baso # (Auto) 0.0 Abs Immat Gran (auto) 0.02 Absolute Neuts (auto) 3.2 Absolute Nucleated RBC 0.000 Nucleated RBC % (auto) 0.0 Anion Gap 16 Estim Creat Clear Calc 110.2 Estimated GFR > 60 Random Glucose 131 H Calcium 9.1 Total Bilirubin 1.2 H AST 11 ALT 12 Alkaline Phosphatase 100 B-Natriuretic Peptide 327 H Total Protein 5.7 L Albumin 3.5 Assessment and Plan (1) Atrial fibrillation with rapid ventricular response: Status: Acute Plan 67-year-old woman admitted with atrial fibrillation with rapid ventricular response Atrial fibrillation with rapid ventricular response Recent successful cardioversion in July of 2022 Patient now in atrial fibrillation once again Treated with multiple medications in the ER unsuccessfully Cardizem drip titrated Successful cardioversion this afternoon continue flecainide 150 mg b.i.d. and Eliquis EKG in the morning Hypertension Stable blood pressure Continue home medications Asthma No exacerbation Albuterol as needed JIMBO CPAP Morbid obesity.? BMI 56.7 Discussed importance of weight management as this may be contributing to worsening of other comorbidities DVT prophylaxis with Attending Dr. Pal full code DISPO likely home tomorrow after cardioversion Time Spent With Patient Time: Total time managing care of this patient today ____ minutes. Quality Stroke Does the patient have a stroke diagnosis?: No VTE Prior VTE?: No VTE Risk Level:: Medical - moderate - high VTE Device Contraindication: Treatment Not Indicated VTE Drug Contraindication: N/A - Med Ordered
--- NOTE | 2022-12-23 16:01 | MHC.SHP ---
Pre-Procedural Eval Section A Date of Service: 12/23/22 The patient is an INPATIENT: Yes Changes since office visit: Yes Patient answered all questions; No Cold of Flu in the past 2 weeks, No New Medical Problems and No Changes in Medication The History & Physical has been completed within 30 days and I have reviewed it.: Yes Section B Chief Complaint: Afib RVR Allergies: Allergies Allergy/AdvReac Type Severity Reaction Status Date / Time adhesive tape [ADHESIVE TAPE] Allergy Intermediate BLISTERS Verified 11/27/22 14:49 Plan I have reviewed the history and physical and performed a pertinent physical examination on my patient. No changes have occurred unless specified. Time Spent With Patient Time: Total time managing care of this patient today ____ minutes.
--- NOTE | 2022-12-23 16:06 | ECG_ITS ---
Test Reason : s/p cardioversion Blood Pressure : / mmHG Vent. Rate : 063 BPM Atrial Rate : 063 BPM P-R Int : 200 ms QRS Dur : 096 ms QT Int : 444 ms P-R-T Axes : 009 001 111 degrees QTc Int : 454 ms Normal sinus rhythm T wave abnormality, consider anterolateral ischemia Abnormal ECG When compared with ECG of 22-DEC-2022 11:06, Vent. rate has decreased BY 52 BPM Criteria for Septal infarct are no longer Present T wave inversion now evident in Anterior leads Referred By: Hermilo Conti Electronically Signed By:LANDRY HAMM MD
--- NOTE | 2022-12-23 16:12 | PM.DS ---
DS: Providers Provider Date of Service: 12/24/22 Date of admission: 12/22/22 18:06 Primary care physician: Ang Bernstein MD Consults: 12/22/22 17:56 Consult to Cardiology Routine Consulting Provider: Adam Sprague Reason for consultation: afib rvr Has provider been notified: No Attending physician on discharge: Siddhartha Pal Discharging clinician: Vivian Brooke DS: Diagnosis Discharge Diagnosis (1) Atrial fibrillation with rapid ventricular response: Status: Acute DS: Summary Hospital Course Hospital Course: 66-year-old woman presenting to the ER with increased anxiety in shortness of breath that started this morning.? She reports that she usually monitors her heart rate on her smart watch and her heart rate was unchanged up to 150 today and the EKG on the smart watch was inconclusive therefore she decided to come to the ER out of concern for being in atrial fibrillation again.? She had a successful cardioversion in July of 2022 and reports compliance with all of her medications.? She denied chest pain, nausea, vomiting, diarrhea, loss of consciousness.? She recently got her COVID booster on 12/20/2022 and had been feeling congested for a few days.? In the ER she received multiple doses of metoprolol, flecainide and diltiazem with continued rapid ventricular response therefore patient will be admitted for management of this with cardioversion tomorrow. Atrial fibrillation with rapid ventricular response Recent successful cardioversion in July of 2022 Patient presented in atrial fibrillation once again Treated with multiple medications in the ER unsuccessfully cardizem drip titrated flecainide increased to 150mg BID, continue BB Successful cardioversion Hypertension with one episod eof hypotension after anesthesia Resolved with IV fluids, no further episodes Continue home medications Asthma No exacerbation Continue medications JIMBO CPAP Morbid obesity.? BMI 56.7 Discussed importance of weight management as this may be contributing to worsening of other comorbidities Time Spent with Patient Time attestation: Total time managing care of this patient today ____ minutes. Discharge coordination time: Greater than 30 minutes Quality: Safe Use of Opioids Does Pt have an Active Cancer Diagnosis on the Problem List?: No Quality: Stroke Does the patient have a stroke diagnosis?: No Physical Exam Vital Signs: Vital Signs: Last Vital Signs Temp 97.0 F 12/23/22 10:58 Pulse 107 H 12/23/22 10:58 Resp 18 12/23/22 10:58 BP 125/88 12/23/22 10:58 Pulse Ox 96 12/23/22 10:58 O2 Del Method 12/23/22 10:58 BMI result Body Mass Index 56.7 Appearing in no acute distress head is normocephalic atraumatic eyes pupils are PERRLA sclera is anicteric mouth throat mucous membranes are intact and moist neck is supple no lymphadenopathy, no JVD noted lung sounds are clear to auscultation heart regular rate rhythm, clear S1, S2 positive bowel sounds, abdomen is soft, nontender neuro patient is alert x3, no focal deficits DS: Data Data Completed and Pending Completed studies during hospitalization [Text1]: Procedures Assistance with Respiratory Ventilation, Less than 24 Consecutive Hours, Continuous Positive Airway Pressure (07/23/22) [facility]iac Rhythm, Single (07/23/22) Labs on day of discharge: Laboratory Results - last 24 hr 12/23/22 12/23/22 12/23/22 06:44 06:44 06:44 WBC 6.3 RBC 4.95 Hgb 14.4 Hct 43.2 MCV 87.3 MCH 29.1 MCHC 33.3 RDW 13.7 Plt Count 215 MPV 10.7 Immature Gran % (Auto) 0.3 Neut % (Auto) 50.9 Lymph % (Auto) 34.8 [place] % (Auto) 10.3 Eos % (Auto) 3.2 Baso % (Auto) 0.5 Lymph # (Auto) 2.2 [place] # (Auto) 0.7 Eos # (Auto) 0.2 Baso # (Auto) 0.0 Abs Immat Gran (auto) 0.02 Absolute Neuts (auto) 3.2 Absolute Nucleated RBC 0.000 Nucleated RBC % (auto) 0.0 Sodium 145 Potassium 3.9 Chloride 105 Carbon Dioxide 28 Anion Gap 16 BUN 15 Creatinine 0.69 Estim Creat Clear Calc 110.2 Estimated GFR > 60 Random Glucose 131 H Calcium 9.1 Total Bilirubin 1.2 H AST 11 ALT 12 Alkaline Phosphatase 100 B-Natriuretic Peptide 327 H Total Protein 5.7 L Albumin 3.5 Discharge Plan Discharge Anticipated Discharge Date/Time: 12/24/22 13:28 Patient Disposition: Home, Self-Care Discharge Diagnosis: Afib rvr Referrals: Ang Bernstein MD [Primary Care Provider] - 1 Week Discharge Medications: New flecainide 50 mg Tablet 150 mg PO Q12H Qty: 180 0RF Continued cholecalciferol (vitamin D3) 25 mcg (1,000 unit) capsule 25 mcg PO DAILY Qty: 30 0RF multivitamin Tablet 1 tab PO DAILY Qty: 30 0RF omega-3 fatty acids 1,250 mg capsule 1,250 mg PO DAILY Qty: 30 0RF metoprolol succinate [Toprol XL] 50 mg tablet extended release 24 hr 50 mg PO DAILY Qty: 60 3RF furosemide [Lasix] 40 mg tablet 40 mg PO DAILY 30 Days Qty: 30 5RF budesonide-formoterol [Symbicort] 160-4.5 mcg/actuation HFA aerosol inhaler 2 puff inhalation BID albuterol sulfate [ProAir HFA] 90 mcg/actuation HFA aerosol inhaler 2 puff inhalation Q4-6H PRN (Reason: shortness of breath or wheezing) 30 Days Qty: 8.5 3RF paroxetine HCl 30 mg tablet 45 mg PO DAILY mecobalamin (vitamin B12) 5,000 mcg tablet,disintegrating 5,000 mcg PO MOWEFR@1000 rosuvastatin 10 mg tablet 10 mg PO BEDTIME valsartan 160 mg tablet 160 mg PO DAILY Qty: 60 3RF Eliquis 5 mg tablet 5 mg PO BID 90 Days Qty: 180 3RF omeprazole 20 mg capsule,delayed release(DR/EC) 20 mg PO DAILY@0630 Discontinued flecainide 50 mg tablet 50 mg PO Q12H 90 Days Qty: 180 2RF Discharge Orders: Discharge Order (Routine); Ordered 12/24/22 Ordered By: Vivian Brooke Diet: Advance to usual diet Activity on Discharge: As tolerated Stand Alone Forms: Patient Portal Discharge page Care Plan Goals: Complete resolution of symptoms Health Concerns: Atrial fibrillation with rapid ventricular response Plan of Treatment: Follow-up with primary care provider as needed Follow-up with Cardiology as needed Take all medications as prescribed Assessment: See discharge summary
--- NOTE | 2022-12-23 16:26 | HO.CARDIVERS ---
Cardioversion Procedure Note Cardioversion Date of Procedure: Today Ordering Provider: Myself Performing Provider: Myself Indication for Procedure: Persistent symptomatic atrial fibrillation Pre-Op Diagnosis: Same Post-Op Diagnosis: Sinus rhythm Performed with Transesophageal Echo: No Consent: Verbal and Written consent was obtained from the patient before starting and after confirming oral anticoagulation use and giving flecainide 150 mg. The patient was made aware of the risk of synchronized cardioversion including benefits and alternatives Procedure: After consent obtained, cardioversion pads were attached anteroposterior configuration and the patient was sedated by the anesthesia team. Once adequate sedation achieved, patient was delivered 200 joules of biphasic synchronized energy in anteroposterior configuration. Complications: None Impression: Successful conversion to sinus rhythm Recommendations: 1. 12 lead EKG 2. Observe overnight with EKG tomorrow a.m. 3. Flecainide at 150 mg b.i.d. 4. Continue oral anticoagulation without interruption
[2022-12-23] MEDS: Atorvastatin Calcium 40 MG TABLET PO (20:20)
[2022-12-23 20:48] LABS: Lactic Acid 2.2 mmol/L (0.5-2.0); Troponin-I High Sensitivity < 3.5 ng/L (<3.5-17.0)
[2022-12-23] MEDS: Lactated Ringers 500 ML 999 ML IV (21:03)
[2022-12-23 22:18] LABS: Reflex Lactate? Lactic Acid Added
[2022-12-23 23:12] LABS: ~Lactic Acid-LAB USE ONLY 2.2 mmol/L (0.5-2.0)
[2022-12-23 23:20] LABS: Troponin-I High Sensitivity < 3.5 ng/L (<3.5-17.0)
[2022-12-23] MEDS: Lactated Ringers 1,000 ML 80 ML IVCONT (23:53)
[2022-12-24 00:54] LABS: Reflex Lactate? 2 Y
[2022-12-24 01:38] LABS: ~Lactic Acid-LAB USE ONLY 1.6 mmol/L (0.5-2.0)
[2022-12-24 04:00] VITALS: BP 133/86; PULSE 60; RESP 18; TEMP 35.8; O2SAT 97
[2022-12-24 04:57] VITALS: RESP 20
--- NOTE | 2022-12-24 05:55 | PM.EVENT ---
Event Note Date of Service: 12/24/22 Event Note: Patient had an episode of hypotension while ambulating out of bed early in the evening of 2 7, patient was symptomatic with dizziness. She denies any chest pain, no shortness of breath. She was set in bed, received 1 L of IV fluid bolus. With improvement in her symptoms and her blood pressure was also improved. We obtained in EKG was showed new changes not present on previous. Discussed with Cardiology, will obtain limited echo, troponin negative x2. Time Spent With Patient Time: Total time managing care of this patient today ____ minutes.
--- NOTE | 2022-12-24 06:00 | ECG_ITS ---
Test Reason : status post cardioversion Blood Pressure : / mmHG Vent. Rate : 062 BPM Atrial Rate : 062 BPM P-R Int : 242 ms QRS Dur : 108 ms QT Int : 434 ms P-R-T Axes : 071 000 097 degrees QTc Int : 440 ms Sinus rhythm with 1st degree A-V block Nonspecific T wave abnormality Abnormal ECG When compared with ECG of 23-DEC-2022 20:07, [place] interval has increased Nonspecific T wave abnormality has replaced inverted T waves in Anterior leads Referred By: Vivian Brooke Electronically Signed By:LANDRY HAMM MD
--- NOTE | 2022-12-24 06:12 | PC.NURSE ---
PTs manual BP was hypotensive @ 68/50 and she was experiencing some dizziness. I let Dr. Conti know and she ordered labs, fluids, and EKG. Pt BP increased to 102/64 then 122/68. However her lactic came back critical @ 2.2 and her EKG was abnormal. Dr Conti aware.
[2022-12-24] MEDS: Omeprazole 20 MG CAPSULE.DR PO (06:30)
--- NOTE | 2022-12-24 07:01 | CA_ITS ---
Transthoracic Echocardiogram Limited Patient (Last, First, Middle): Gabriela Hernandez, Gender: Female Date of : 1955 Age: 67 Procedure Date: 12/24/2022 Procedure Type: Transthoracic Echocardiogram Limited Location: [facility] [place] Height: 160.02 cm Weight: 145.15 kg BSA: 2.36 m2 Heart Rate: 57 bpm BP: 133 / 86 mmHg Junior Administrative Assistant: CITLALI Referring MD: Hermilo Conti MD Nuclear Worker Technician: Adam Sprague MD Symptoms: abnormal ekg Study Quality: Technically Difficult w contrast ECG Rhythm: Bradycardia Conclusions: - LV systolic function is normal without obvious regional wall motion abnormality Findings Procedure Information Contrast agent, definity, is being given per protocol without apparent complications. Left Ventricle The left ventricular systolic function is normal. The visually estimated ejection fraction is between 60-65%. There is no evidence of regional wall motion abnormalities. Prior Study Comparison No significant change compared to prior study. Measurements 2D Linear Measurements LVOT Diam: 2.30 3.0+(-)1.3 cm 2D Systolic Function EF 4C: 55.70 >55% EF 2C: 69.80 >55% EF BiP: 63.10 >55% Mitral Valve MV Pk E: 0.87 MV PK A: 0.49 MV Decel Time: 277.00 E/A: 1.80 E'Lateral: 7.30 E'Medial: 5.84 E/E' Med: 14.90 E/E' Lat: 11.90 PHT: 81.00 MVA PHT: 2.72 Decel Cooke: 3.14 LVOT LVOT Pk Saran: 0.95 LVOT Mn Saran: 0.70 LVOT VTI: 0.24 LVOT Pk Grad: 4.00 LVOT Mn Grad: 3.00 LVOT Diam: 2.30 LVOT Area: 4.15 Diastolic Function MV Pk E: 0.87 MV Pk A: 0.49 E/A: 1.80 E'Medial: 5.84 E/E' Med: 14.90 E' Laterial: 7.30 E/E' Lat: 11.90 Updated in Other Vendor System with Status of Final Adam Sprague MD electronically signed on 12/24/2022 1:11:31 PM with status of Final
[2022-12-24 08:00] VITALS: BP 143/72; PULSE 55; PULSE 56; RESP 16; RESP 20; TEMP 36.1; O2SAT 95; O2SAT 96
[2022-12-24] MEDS: Fluticasone/Vilanterol 200/25 BLST.W.DEV 1 PUFF INHALE (08:00)
[2022-12-24] MEDS: Valsartan 320 MG TABLET PO (08:27)
[2022-12-24] MEDS: Furosemide 40 MG TABLET PO (08:27)
[2022-12-24] MEDS: PARoxetine HCL 30 MG TABLET 45 MG PO (08:27)
[2022-12-24] MEDS: Multivitamin TABLET 1 TAB PO (08:27)
[2022-12-24] MEDS: Flecainide Acetate 50 MG TABLET 150 MG PO (08:27)
[2022-12-24] MEDS: Apixaban 5 MG TABLET PO (08:27)
[2022-12-24] MEDS: 0.9 % Sodium Chloride Flush 3 ML SYRINGE IVFLUSH (08:28)
[2022-12-24] MEDS: Cholecalciferol (Vitamin D3) 25 MCG TABLET PO (08:28)
[2022-12-24 11:17] VITALS: BP 127/55; PULSE 61; RESP 20; TEMP 35.8; O2SAT 96
--- NOTE | 2022-12-24 11:20 | PM.PNCARD ---
Subjective Subjective Date of Service: 12/24/22 Principal diagnosis: Symptomatic atrial fibrillation. Interval history: Patient status post cardioversion maintaining rhythm. However yesterday evening developed sudden-onset hypertension with dizziness of unclear etiology requiring fluid resuscitation. Since then her blood pressures remained stable. She had he came in changes in the anterolateral leads. Early symptom-free. No chest pain yesterday. No shortness of breath. Feeling better overall. Review of Systems Constitutional: Reports no additional constitutional complaints Cardiovascular: Reports no additional cardiovascular complaints Gastrointestinal: Reports no additional gastrointestinal complaints Reports system reviewed and no additional complaints, except as documented Physical Exam Vital Signs: Last Vital Signs Temp 96.5 F L 12/24/22 11:17 Pulse 61 12/24/22 11:17 Resp 20 12/24/22 11:17 BP 127/55 L 12/24/22 11:17 Pulse Ox 96 12/24/22 11:17 O2 Del Method 12/24/22 11:17 O2 Flow Rate 2.5 12/23/22 20:00 BMI result Body Mass Index 56.7 Const General: cooperative, comfortable, no acute distress, alert and awake Nutritional Appearance: obese morbidly obese Orientation/consciousness: patient oriented x3 Limitations: no limitations Neck Neck: Yes trachea midline, Yes supple and Yes no JVD Chest Chest palpation & inspection: normal inspection of the chest Resp Effort & Inspection: normal respiratory effort Auscultation: clear to auscultation bilaterally Cardio Jugular venous distension: no JVD Rate: regular rate and tachycardic Rhythm: regular rhythm Heart sounds: S1 normal heart sound present, S2 normal heart sound present, no click, no gallops, no murmurs and no rubs GI Auscultation: normal bowel sounds Skin General skin exam: no rashes or lesions noted Neuro General: patient oriented x3 and no focal motor deficits Extrem General: Yes no clubbing, cyanosis or edema Objective Labs and Meds 12/23/22 06:44 12/23/22 06:44 Lab results: Laboratory Results - last 24 hr 12/23/22 12/23/22 12/23/22 20:14 20:14 22:42 Lactic Acid 2.2 H* Lactic Acid F/U @ 2Hr Lactic Acid F/U @ 4Hr Troponin I High Sens < 3.5 < 3.5 12/23/22 12/24/22 22:42 01:20 Lactic Acid Lactic Acid F/U @ 2Hr 2.2 H* Lactic Acid F/U @ 4Hr 1.6 Troponin I High Sens Progress Note: A&P Assessment and plan (1) PAF (paroxysmal atrial fibrillation): Status: Acute Assessment and Plan: Patient status post cardioversion ears today maintaining rhythm. Doing well from that perspective. No neurologic symptoms. Continue flecainide 150 mg b.i.d. along with metoprolol therapy. Continue full oral anticoagulation with Eliquis. Discuss future management with her. If she maintains rhythm with increased flecainide therapy will continue the same. She has recurrent atrial fibrillation may require initiation of amiodarone as outpatient. Continue CPAP therapy. Continue participate in aggressive weight loss program. Continue management of blood pressure aggressively. (2) CHF (congestive heart failure): Status: Acute Assessment and Plan: Clinically no signs of CHF at this point time. Continue rhythm control approach. This has helped her heart failure syndrome the most in the past. Continue diuretic therapy for condition CPAP therapy. Continue aggressive control of blood pressure. Low-salt diet was discussed. (3) Acute hypotension: Status: Acute Assessment and Plan: Acute hypertension yesterday evening after anesthesia P most likely anesthesia effect. Recovered quickly with fluid resuscitation. Not hypertensive anymore. Out of bed to chair. Showed some EKG changes without any evidence of acute myocardial injury by troponin testing. Would obtain a limited echocardiogram to evaluate LV systolic function and regional wall motion abnormality. This is negative, patient can be discharged home later today. Will sign of the case. Time Spent With Patient Time: Total time managing care of this patient today ____ minutes. Progress Note: Quality Stroke Does the patient have a stroke diagnosis?: No Procedures Date of Service Date of Service: 12/24/22
[2022-12-24 11:21] VITALS: O2SAT 96
[2022-12-24] MEDS: Lactated Ringers 1,000 ML 80 ML IVCONT (12:40)
--- NOTE | 2022-12-24 14:40 | HO.POSTANES ---
Post Anesthesia Evaluation Post Anesthesia Evaluation Vital Signs: Vital Signs Temp Pulse Resp BP Pulse Ox O2 Del Method 12/24/22 11:21 96 Room Air 12/24/22 11:17 96.5 F L 61 20 127/55 L 96 Room Air 12/24/22 08:00 97.0 F 56 20 143/72 H 96 Room Air 12/24/22 08:00 55 16 12/24/22 04:57 20 12/24/22 04:00 96.5 F L 60 18 133/86 97 CPAP Anesthesia: General Mental Status: Awake Pain Control: Satisfactory Nausea/Vomiting: None Hydration: Adequate Anesthesia-Related Issues: No Anes. Related Issues
== END 2022-12-24 14:20 | disposition home or self-care (01) ==
LOC: HO.ED 17:33 → HO.EDOVER 18:26 → HO.IMC 19:11
PROVIDERS: Internal Medicine; Internal Medicine Cardiovascular Disease; Physician Assistant Medical; Admitting Provider Nurse Practitioner Acute Care; Emergency Provider Emergency Medicine; PCP Internal Medicine; Visit Provider Nurse Practitioner Acute Care
PROC: 5A2204Z Restoration of Cardiac Rhythm, Single (ICD-10-PCS; CPT 92960; principal; 2022-12-23 11:30)
DX: I48.20 Chronic atrial fibrillation, unspecified (principal); I48.0 Paroxysmal atrial fibrillation; I95.9 Hypotension, unspecified; I11.0 Hypertensive heart disease with heart failure; I50.32 Chronic diastolic (congestive) heart failure; R60.0 Localized edema; F41.9 Anxiety disorder, unspecified; R06.02 Shortness of breath; Z20.822 Contact with and (suspected) exposure to COVID-19; Z20.828 Contact with and (suspected) exposure to other viral communicable diseases; J45.909 Unspecified asthma, uncomplicated; G47.33 Obstructive sleep apnea (adult) (pediatric); F32.9 Major depressive disorder, single episode, unspecified; E66.01 Morbid (severe) obesity due to excess calories; Z68.43 Body mass index [BMI] 50.0-59.9, adult; Z90.710 Acquired absence of both cervix and uterus; Z90.49 Acquired absence of other specified parts of digestive tract; Z98.84 Bariatric surgery status; Z87.891 Personal history of nicotine dependence; Z71.3 Dietary counseling and surveillance; Z99.89 Dependence on other enabling machines and devices; Z79.01 Long term (current) use of anticoagulants; Z79.02 Long term (current) use of antithrombotics/antiplatelets; Z79.899 Other long term (current) drug therapy
CPT/HCPCS: 92960; 0241U; 36415; 71045; 80053; 83605; 83735; 83880; 84484; 85025; 93005; 93308; 94640; 94660; 96361; 96374; 96375; 96376; 99222; 99285; J0171; J0330; J2370; Q9957

== ENCOUNTER 2022-12-28 21:31 | Observation (INO) | payer MEDICARE, OTHER, SELFPAY ==
--- NOTE | ~2022-12-28 | XR_ITS ---
EXAMINATION: XR CHEST CLINICAL INFORMATION: Short of breath COMPARISON: 12/22/2022 TECHNIQUE: Frontal view of the chest was obtained. FINDINGS: Cardiac leads overlie the chest. The lungs are well expanded. Bronchial wall thickening. There is no focal consolidation, edema, or effusion. Minimal linear left basilar atelectasis. No pneumothorax. The cardiomediastinal silhouette is within normal limits. No acute osseous abnormality. XR/XR chest 1V IMPRESSION: No dense consolidation. Bronchial wall thickening can be seen with a small airways process such as asthma or atypical/viral infection.
[2022-12-28 21:46] VITALS: BP 132/62; PULSE 91; RESP 20; TEMP 36.7; O2SAT 98; BMI 57.5
--- NOTE | 2022-12-28 21:53 | ECG_ITS ---
Test Reason : SOB Blood Pressure : / mmHG Vent. Rate : 112 BPM Atrial Rate : 000 BPM P-R Int : 000 ms QRS Dur : 096 ms QT Int : 358 ms P-R-T Axes : 000 -04 136 degrees QTc Int : 488 ms Atrial fibrillation with rapid ventricular response ST & T wave abnormality, consider lateral ischemia Abnormal ECG When compared with ECG of 24-DEC-2022 09:49, Atrial fibrillation has replaced Sinus rhythm Vent. rate has increased BY 50 BPM Nonspecific T wave abnormality now evident in Inferior leads Referred By: Generic ED Physician Electronically Signed By:Jaime Clifford
--- NOTE | 2022-12-28 22:18 | ED_ITS ---
HPI - Arrhythmia/Palpitations General Chief Complaint: Arrhythmia/Palpitations Stated Complaint: Afib Time Seen by Provider: 12/28/22 21:59 Source: patient and family () Mode of arrival: ambulatory Limitations: no limitations History of Present Illness HPI narrative: 67-year-old female presented to the ER for. Of shortness of breath with exertion, feeling dizzy, feel palpitation, patient with known history of atrial fibrillation that is taking metoprolol, flecainide, and diltiazem in use Eliquis for anticoagulation, patient had recent cardioversion last week with recent increase of her flecainide dosage. Patient was sent to the ED for further evaluation by Dr. Sprague (her rope coiling machine operator) for further evaluation for shortness of breath and dizziness. Related Data Home Medications Medication Instructions Recorded Confirmed paroxetine HCl 30 mg tablet 45 mg PO DAILY 10/01/20 12/22/22 mecobalamin (vitamin B12) 5,000 5,000 mcg PO MOWEFR@1000 08/06/22 12/22/22 mcg disintegrating tablet rosuvastatin 10 mg tablet 10 mg PO BEDTIME 08/06/22 12/22/22 omeprazole 20 mg capsule,delayed 20 mg PO DAILY@0630 10/14/22 12/22/22 release budesonide-formoterol HFA 160 2 puff inhalation BID 12/22/22 12/22/22 mcg-4.5 mcg/actuation aerosol inhaler (Symbicort) Previous Rx's Medication Instructions Recorded cholecalciferol (vitamin D3) 25 25 mcg PO DAILY #30 caps 09/17/20 mcg (1,000 unit) capsule multivitamin 1 tab PO DAILY #30 tabs 09/17/20 omega-3 fatty acids 1,250 mg 1,250 mg PO DAILY #30 caps 09/17/20 capsule albuterol sulfate 90 mcg/actuation 2 puff inhalation Q4-6H PRN 10/29/21 aerosol inhaler (ProAir HFA) shortness of breath or wheezing 30 days #8.5 grams valsartan 160 mg tablet 160 mg PO DAILY #60 tabs 08/06/22 metoprolol succinate 50 mg 50 mg PO DAILY #60 tabs 08/15/22 tablet,extended release 24 hr (Toprol XL) furosemide 40 mg tablet (Lasix) 40 mg PO DAILY 30 days #30 tabs 08/21/22 apixaban 5 mg tablet (Eliquis) 5 mg PO BID 90 days #180 tabs 09/03/22 flecainide 50 mg tablet 150 mg PO Q12H #180 tabs 12/23/22 Allergies Allergy/AdvReac Type Severity Reaction Status Date / Time adhesive tape [ADHESIVE TAPE] Allergy Intermediate BLISTERS Verified 11/27/22 14:49 Review of Systems Review of Systems: All other systems are reviewed and are negative Constitutional: Reports as per HPI and Reports no additional constitutional complaints Eyes: Reports as per HPI and Reports no additional eye complaints Reports system reviewed and no additional complaints, except as documented Cardiovascular: Reports as per HPI and Reports no additional cardiovascular complaints Respiratory: Reports as per HPI and Reports no additional respiratory complaints Gastrointestinal: Reports as per HPI and Reports no additional gastrointestinal complaints Genitourinary: Reports no additional female genitourinary complaints Musculoskeletal: Reports no additional musculoskeletal complaints Skin/Breast: Reports system reviewed and no additional complaints, except as docu Psychiatric: Reports no additional psychiatric complaints Endocrine: Reports no additional endocrine complaints Hematologic/Lymphatic: Reports no additional hematologic/lymphatic complaints Allergic/Immunologic: Reports no additional allergic/immunologic complaints Reports system reviewed and no additional complaints, except as documented and Reports Abnormal speech present FOR[facility]LY [facility], [facility] Past Medical History Medical History Asthma exacerbation Bronchial asthma Bronchitis History of cardioversion HTN (hypertension) MDD (major depressive disorder) Morbid obesity JIMBO on CPAP Post covid-19 condition, unspecified Surgical History Anal fistula H/O colonoscopy H/O umbilical hernia repair History of cholecystectomy History of hysterectomy for cancer Hx of laparoscopic gastric banding Social History Social History Household Members: Spouse Housing: House Do you presently have visiting nurse or other home services: No Alcohol intake: current Alcohol intake frequency: does not drink Patient Tobacco Use Status: Former Tobacco user Quit Date: 1992 Tobacco use type: Cigarette Years Smoked: 25 +/- Second Hand Smoke Exposure: No Advance Directives: No Advance Directives Information Provided: No service: No Current occupational status: unemployed Physical Exam Vital Signs: Vital Signs: Last Vital Signs Temp 98.2 F 02/12/23 23:40 Pulse 89 12/28/22 23:40 Resp 15 12/28/22 23:40 BP 107/70 12/28/22 23:40 Pulse Ox 95 12/28/22 23:40 O2 Del Method 12/28/22 23:40 BMI result Body Mass Index 57.5 Vital signs have been reviewed as appeared to be correct. Blood pressure normal. Heart rate normal. Respiration rate normal. Temperature normal. Oxygen saturation normal. Appearance: Alert. Oriented X3. No acute distress. Head: Normal external exam. Normocephalic. Atraumatic. No Arana signs noted. No raccoon eyes noted Eyes: PERRLA. EOMI. Conjunctiva and sclera normal. Eyelids normal. ENT: TM's Normal. Pharynx normal. Uvula midline. Moist mucous membranes. No trismus noted. No drooling noted. No muffled voice noted. Neck: Normal inspection. Neck supple. FROM. No adenopathy. Thyroid Normal. No meningeal signs. No neck mass noted. CVS: Regular heartbeat at 115 beats per minute. Heart sound normal. No murmurs noted. Pulses normal throughout. Respiratory: No respiratory distress. Painless inspiration. Breath sounds normal. No wheezes/rales/rhonchi noted. Chest nontender. No accessory muscle usage noted or decreased air movement noted. Abdomen: Soft and nontender. Bowel sounds normal in all 4 quadrants. No distention noted. No organomegaly noted. No visible injury noted. Back: No CVA tenderness. Full range of motion noted. Skin: Skin warm and dry. Normal skin color. Normal skin turgor. No rashes/lesions/lacerations noted. Extremities: No lower extremity edema. Extremities exhibit normal range of motion. Extremities nontender. Neuro: Oriented X 3. Cranial nerve exam: II-XII are grossly intact No motor deficit. No sensory deficit. Reflexes normal. Course Course Course Narrative: 67-year-old female history of AFib with recent cardioversion, presented with symptomatic rapid AFib with exertional SOB and dizziness, in the emergency department patient's heart rate 115's-90s, patient will be admitted for further evaluation for cardioversion in the morning by Dr. Sprague. Medical Decision Making Differential Diagnosis Differential Diagnoses: The differential diagnosis associated with the presentation includes (Rapid atrial fibrillation, CHF, pneumonia, electrolyte disturbance.) Admission/Observation Consideration of admission/observation: Escalation of care including admission/observation considered Consult Healthcare Provider Management of the patient was discussed with: Hospitalist Lab Data MDM Lab Attestation statement: I reviewed the patient's lab results. 12/28/22 21:38 12/28/22 21:38 Labs: Lab Results 12/28/22 12/28/22 12/28/22 Range/Units 21:38 21:38 21:38 WBC 9.2 (4.8-10.8) X10*3/uL RBC 5.04 (4.20-5.50) X10*6/uL Hgb 14.7 (12.0-16.0) g/dl Hct 43.0 (37.0-47.0) % MCV 85.3 (80.0-98.0) fL MCH 29.2 (27.0-33.0) pg MCHC 34.2 (31.0-35.0) g/dl RDW 13.7 (11.0-16.0) % Plt Count 265 (160-400) X10*3/uL MPV 10.3 (9.4-12.3) fL Immature Gran % (Auto) 0.2 (0.0-0.4) % Neut % (Auto) 63.2 (45-73) % Lymph % (Auto) 26.8 (20-40) % [place] % (Auto) 8.0 (2-11) % Eos % (Auto) 1.5 (0-4) % Baso % (Auto) 0.3 (0-2) % Lymph # (Auto) 2.5 (1.2-4.9) X10*3/uL [place] # (Auto) 0.7 (0.1-1.2) X10*3/uL Eos # (Auto) 0.1 (0.0-0.4) X10*3/uL Baso # (Auto) 0.0 (0.0-0.2) X10*3/uL Abs Immat Gran (auto) 0.02 (0.00-0.03) X10*3/uL Absolute Neuts (auto) 5.8 (2.0-8.3) x10*3/uL Absolute Nucleated RBC 0.000 (0.0-0.012) X10*3/uL Nucleated RBC % (auto) 0.0 (0.0-0.2) /100WBC PT (10.0-13.1) SEC INR (0.9-1.1) APTT (26.0-36.4) SEC Sodium 141 (135-145) mmol/L Potassium 4.1 (3.3-5.1) mmol/L Chloride 106 (96-108) mmol/L Carbon Dioxide 25 (22-29) mmol/L Anion Gap 14 (12-20) BUN 22 H (9-16) mg/dL Creatinine 0.74 (0.5-1.4) mg/dL Estim Creat Clear Calc 103.8 Estimated GFR > 60 Random Glucose 140 H (60-115) mg/dL Calcium 9.2 (8.4-10.2) mg/dL Total Bilirubin 0.9 (0.0-1.0) mg/dL Direct Bilirubin 0.2 (0.0-0.5) mg/dL AST 15 (5-31) U/L ALT 15 (0-31) U/L Alkaline Phosphatase 110 (39-117) U/L Troponin I High Sens < 3.5 (<3.5-17.0) ng/L B-Natriuretic Peptide (<100) pg/mL Total Protein 6.2 L (6.5-8.0) g/dL Albumin 3.8 (3.5-5.0) g/dL Lipase 19 (8-78) U/L COVID-19 (BOLIVAR) (Negative) COVID-19 Clin Com 12/28/22 12/28/22 12/28/22 Range/Units 21:38 21:38 21:38 WBC (4.8-10.8) X10*3/uL RBC (4.20-5.50) X10*6/uL Hgb (12.0-16.0) g/dl Hct (37.0-47.0) % MCV (80.0-98.0) fL MCH (27.0-33.0) pg MCHC (31.0-35.0) g/dl RDW (11.0-16.0) % Plt Count (160-400) X10*3/uL MPV (9.4-12.3) fL Immature Gran % (Auto) (0.0-0.4) % Neut % (Auto) (45-73) % Lymph % (Auto) (20-40) % [place] % (Auto) (2-11) % Eos % (Auto) (0-4) % Baso % (Auto) (0-2) % Lymph # (Auto) (1.2-4.9) X10*3/uL [place] # (Auto) (0.1-1.2) X10*3/uL Eos # (Auto) (0.0-0.4) X10*3/uL Baso # (Auto) (0.0-0.2) X10*3/uL Abs Immat Gran (auto) (0.00-0.03) X10*3/uL Absolute Neuts (auto) (2.0-8.3) x10*3/uL Absolute Nucleated RBC (0.0-0.012) X10*3/uL Nucleated RBC % (auto) (0.0-0.2) /100WBC PT 12.4 (10.0-13.1) SEC INR 1.1 (0.9-1.1) APTT 36.5 H (26.0-36.4) SEC Sodium (135-145) mmol/L Potassium (3.3-5.1) mmol/L Chloride (96-108) mmol/L Carbon Dioxide (22-29) mmol/L Anion Gap (12-20) BUN (9-16) mg/dL Creatinine (0.5-1.4) mg/dL Estim Creat Clear Calc Estimated GFR Random Glucose (60-115) mg/dL Calcium (8.4-10.2) mg/dL Total Bilirubin (0.0-1.0) mg/dL Direct Bilirubin (0.0-0.5) mg/dL AST (5-31) U/L ALT (0-31) U/L Alkaline Phosphatase (39-117) U/L Troponin I High Sens (<3.5-17.0) ng/L B-Natriuretic Peptide 167 H (<100) pg/mL Total Protein (6.5-8.0) g/dL Albumin (3.5-5.0) g/dL Lipase (8-78) U/L COVID-19 ([facility]) Negative (Negative) COVID-19 Clin Com See Note Independent Interpretation I performed an independent interpretation of an: EKG (Atrial fibrillation with a rapid ventricular response of 112 beats per minutes, otherwise normal intervals, nonspecific ST-T changes.) and Plain X-Ray (Chest:No dense consolidation. Bronchial wall thickening can be seen with a small airways process such as asthma or atypical/viral infection. ) Radiology Impression Discussion of test interpretation with radiology: I have reviewed the rad iologist's reading. Discharge Plan Discharge Clinical Impression: Atrial fibrillation, rapid Patient Disposition: Admitted As Inpatient Prescriptions: No Action cholecalciferol (vitamin D3) 25 mcg (1,000 unit) capsule 25 mcg PO DAILY Qty: 30 0RF multivitamin Tablet 1 tab PO DAILY Qty: 30 0RF omega-3 fatty acids 1,250 mg capsule 1,250 mg PO DAILY Qty: 30 0RF metoprolol succinate [Toprol XL] 50 mg tablet extended release 24 hr 50 mg PO DAILY Qty: 60 3RF furosemide [Lasix] 40 mg tablet 40 mg PO DAILY 30 Days Qty: 30 5RF budesonide-formoterol [Symbicort] 160-4.5 mcg/actuation HFA aerosol inhaler 2 puff inhalation BID flecainide 50 mg Tablet 150 mg PO Q12H Qty: 180 0RF albuterol sulfate [ProAir HFA] 90 mcg/actuation HFA aerosol inhaler 2 puff inhalation Q4-6H PRN (Reason: shortness of breath or wheezing) 30 Days Qty: 8.5 3RF paroxetine HCl 30 mg tablet 45 mg PO DAILY mecobalamin (vitamin B12) 5,000 mcg tablet,disintegrating 5,000 mcg PO MOWEFR@1000 rosuvastatin 10 mg tablet 10 mg PO BEDTIME valsartan 160 mg tablet 160 mg PO DAILY Qty: 60 3RF Eliquis 5 mg tablet 5 mg PO BID 90 Days Qty: 180 3RF omeprazole 20 mg capsule,delayed release(DR/EC) 20 mg PO DAILY@0630
[2022-12-28 22:45] LABS: MANUAL DIFF FLAG NO
[2022-12-28 22:46] LABS: Basophils Percent Auto 0.3 % (0-2); Eosinophils Absolute Auto 0.1 X10*3/uL (0.0-0.4); Eosinophils Percent Auto 1.5 % (0-4); Hemoglobin 14.7 g/dl (12.0-16.0); Imm Gran Abs Auto 0.02 X10*3/uL (0.00-0.03); Imm Gran Pct Auto 0.2 % (0.0-0.4); Lymphocytes Absolute Auto 2.5 X10*3/uL (1.2-4.9); Lymphocytes Percent Auto 26.8 % (20-40); Mean Corpuscular HGB Conc 34.2 g/dl (31.0-35.0); Mean Corpuscular Hemoglobin 29.2 pg (27.0-33.0); Mean Corpuscular Volume 85.3 fL (80.0-98.0); Mean Platelet Volume 10.3 fL (9.4-12.3); Monocytes Absolute Auto 0.7 X10*3/uL (0.1-1.2); Neutrophils Absolute Auto 5.8 x10*3/uL (2.0-8.3); Neutrophils Percent Auto 63.2 % (45-73); Platelet Count 265 X10*3/uL (160-400); Red Blood Count 5.04 X10*6/uL (4.20-5.50); Red Cell Distribution Width 13.7 % (11.0-16.0); White Blood Count 9.2 X10*3/uL (4.8-10.8)
[2022-12-28 22:52] LABS: INTERNATIONAL NORM RATIO 1.1 (0.9-1.1); Prothrombin Time 12.4 SEC (10.0-13.1)
[2022-12-28 22:54] LABS: Partial Thromboplastin Time 36.5 SEC (26.0-36.4)
[2022-12-28 23:01] LABS: Alanine Aminotransferase 15 U/L (0-31); Albumin Level 3.8 g/dL (3.5-5.0); Alkaline Phosphatase 110 U/L (39-117); Anion Gap 14 (12-20); Aspartate Amino Transferase 15 U/L (5-31); Bilirubin Direct 0.2 mg/dL (0.0-0.5); Bilirubin Total 0.9 mg/dL (0.0-1.0); Blood Urea Nitrogen 22 mg/dL (9-16); Calcium 9.2 mg/dL (8.4-10.2); Carbon Dioxide 25 mmol/L (22-29); Chloride 106 mmol/L (96-108); Creatinine Clr Calc Pharmacy 103.8; Estimated Glomerular Filt Rate > 60; Glucose Random 140 mg/dL (60-115); Lipase 19 U/L (8-78); Potassium 4.1 mmol/L (3.3-5.1); Sodium 141 mmol/L (135-145); Total Protein 6.2 g/dL (6.5-8.0)
[2022-12-28 23:05] LABS: COVID-19 Test Negative (Negative); IDNOW Serial# BCCEAD1C
[2022-12-28 23:07] LABS: B Type Natriuretic Peptide 167 pg/mL (<100)
[2022-12-28 23:17] LABS: Troponin-I High Sensitivity < 3.5 ng/L (<3.5-17.0)
[2022-12-28 23:40] VITALS: BP 107/70; PULSE 89; RESP 15; TEMP 36.8; O2SAT 95
[2022-12-29] VITALS (7 sets, daily range): BP systolic 96–150; BP diastolic 65–98; PULSE 72–114; RESP 16–20; TEMP 36.1–37.2; O2SAT 93–97; BMI 56.9
--- NOTE | 2022-12-29 | PM.IMHP ---
History of Present Illness Date of Service: 12/28/22 Chief Complaint: palpitations, in afib this is a 67-year-old female with past medical history of AFib with RVR, recently cardioverted cardioverted multiple times in the past most recently on 12/22 successfully, hypertension, presents to the hospital with complaints of palpitation. Patient reports that she was discharged from the hospital on 12 24, was feeling well, then about 3 days ago started having palpitations. She reports that the palpitations were off and on, but they were symptomatic. She felt fluttering in her chest and not feeling well. Called Cardiology, asked to come to the ED. She reports that her Apple watch showed her to be in AFib with a heart rate between 110 to 150s. She denies any chest pain, no abdominal pain nausea or vomiting, no diarrhea constipation, no urinary symptoms and no lower extremity edema. she states that she is short of breath and exertion, no double vision no numbness weakness or tingling. On arrival to the ED patient hemodynamically stable with no significant abnormal vitals labs reviewed, unremarkable with no significant abnormality, EKG on arrival shows AFib with RVR with a heart rate of 112 patient will be admitted for cardioversion in a.m. Review of Systems Review of Systems: Yes all other systems are reviewed and are negative [facility] Medical History Asthma exacerbation Bronchial asthma Bronchitis History of cardioversion HTN (hypertension) MDD (major depressive disorder) Morbid obesity JIMBO on CPAP Post covid-19 condition, unspecified Surgical History Anal fistula H/O colonoscopy H/O umbilical hernia repair History of cholecystectomy History of hysterectomy for cancer Hx of laparoscopic gastric banding Social History Household Members: Spouse Housing: House Do you presently have visiting nurse or other home services: No Alcohol intake: current Alcohol intake frequency: does not drink Patient Tobacco Use Status: Former Tobacco user Quit Date: 1992 Tobacco use type: Cigarette Years Smoked: 25 +/- Second Hand Smoke Exposure: No Use of substances other than those prescribed or required for medical reasons: No Have you been hit, kicked, punched, or otherwise hurt by someone within the past year? If so, by whom?: No Do you feel safe in your current relationship?: Yes Is there a partner from a previous relationship who is making you feel unsafe now?: No Are you made to feel afraid or neglected: No Advance Directives: Yes Advance Directives on File: Yes Advance Directives Date on File: 12/25/22 Do you have thoughts of harming others: None Do you have a plan to hurt others: No Plan Nutrition Risks: No Nutritional Risk Patient : No service: No Current occupational status: unemployed Meds Allergies Allergy/AdvReac Type Severity Reaction Status Date / Time adhesive tape [ADHESIVE TAPE] Allergy Intermediate BLISTERS Verified 11/27/22 14:49 Active Medications: Current Medications Acetaminophen (Acetaminophen 325 Mg Tablet) 650 mg PO Q6H PRN PRN Reason: Pain, Mild (Pain Scale 1-3) Docusate Sodium (Docusate Sodium 100 Mg Capsule) 100 mg PO DAILY PRN PRN Reason: Constipation Ondansetron HCl (Ondansetron Hcl 4 Mg/2 Ml Vial) 4 mg IVPUSH Q8H PRN PRN Reason: Nausea and Vomiting Sodium Chloride (0.9 % Sodium Chloride Flush 3 Ml Syringe) 3 ml IVFLUSH [facility] Medications Medication Instructions Recorded Confirmed Last Taken Type paroxetine HCl 30 mg tablet 45 mg PO DAILY 10/01/20 12/22/22 12/22/22 History mecobalamin (vitamin B12) 5,000 5,000 mcg PO MOWEFR@1000 08/06/22 12/22/22 Unknown History mcg disintegrating tablet rosuvastatin 10 mg tablet 10 mg PO BEDTIME 08/06/22 12/22/22 12/21/22 History omeprazole 20 mg capsule,delayed 20 mg PO DAILY@0630 10/14/22 12/22/22 12/22/22 History release budesonide-formoterol HFA 160 2 puff inhalation BID 12/22/22 12/22/22 12/22/22 History mcg-4.5 mcg/actuation aerosol inhaler (Symbicort) Physical Exam Vital Signs and Narrative: Vital Signs: Last Vital Signs Temp 98.2 F 12/28/22 23:40 Pulse 89 12/28/22 23:40 Resp 15 12/28/22 23:40 BP 107/70 12/28/22 23:40 Pulse Ox 95 02/12/23 23:40 O2 Del Method 12/28/22 23:40 BMI result Body Mass Index 57.5 Const: General: cooperative and no acute distress Orientation/consciousness: patient oriented x3 Eyes: General: appearance normal, both eyes and all related structures Resp: Effort & Inspection: normal respiratory effort Auscultation: clear to auscultation bilaterally Cardio: Other: tachycardia, heart rate in the 110s, irregular rhythm GI: Palpation (GI): Soft to palpation Auscultation: normal bowel sounds Skin: General skin exam: no rashes or lesions noted Neuro: General: patient oriented x3 Cognition (Neuro): normal cognition Extrem: General: Yes normal to inspection and Yes no pedal edema Results Labs 12/28/22 21:38 12/28/22 21:38 Labs: Laboratory Results - last 24 hr 12/28/22 12/28/22 12/28/22 21:38 21:38 21:38 MCV 85.3 MCH 29.2 MCHC 34.2 RDW 13.7 Plt Count 265 MPV 10.3 Immature Gran % (Auto) 0.2 Neut % (Auto) 63.2 Lymph % (Auto) 26.8 [place] % (Auto) 8.0 Eos % (Auto) 1.5 Baso % (Auto) 0.3 Lymph # (Auto) 2.5 [place] # (Auto) 0.7 Eos # (Auto) 0.1 Baso # (Auto) 0.0 Abs Immat Gran (auto) 0.02 Absolute Neuts (auto) 5.8 Absolute Nucleated RBC 0.000 Nucleated RBC % (auto) 0.0 PT INR APTT Anion Gap 14 Estim Creat Clear Calc 103.8 Estimated GFR > 60 Random Glucose 140 H Calcium 9.2 Total Bilirubin 0.9 Direct Bilirubin 0.2 AST 15 ALT 15 Alkaline Phosphatase 110 Troponin I High Sens < 3.5 B-Natriuretic Peptide Total Protein 6.2 L Albumin 3.8 Lipase 19 COVID-19 ([facility]AR) COVID-19 Clin Com 12/28/22 12/28/22 12/28/22 21:38 21:38 21:38 MCV MCH MCHC RDW Plt Count MPV Immature Gran % (Auto) Neut % (Auto) Lymph % (Auto) [place] % (Auto) Eos % (Auto) Baso % (Auto) Lymph # (Auto) [place] # (Auto) Eos # (Auto) Baso # (Auto) Abs Immat Gran (auto) Absolute Neuts (auto) Absolute Nucleated RBC Nucleated RBC % (auto) PT 12.4 INR 1.1 APTT 36.5 H Anion Gap Estim Creat Clear Calc Estimated GFR Random Glucose Calcium Total Bilirubin Direct Bilirubin AST ALT Alkaline Phosphatase Troponin I High Sens B-Natriuretic Peptide 167 H Total Protein Albumin Lipase COVID-19 (BOLIVAR) Negative COVID-19 Clin Com See Note Imaging Radiologist's Impressions: Impressions Chest X-Ray 12/28/22 22:45 IMPRESSION: No dense consolidation. Bronchial wall thickening can be seen with a small airways process such as asthma or atypical/viral infection. Assessment and Plan (1) Atrial fibrillation, rapid: Status: Acute Plan 67-year-old female with past medical history of AFib with RVR, cardioverted in the past most recently on 12/22 presents to the hospital in AFib with RVR # AFib with RVR - at this time there is no apparent reason or etiology for precipitating cause - patient will be admitted under observation, with plan for cardioversion by Cardiology in a.m. - will keep NPO - resume her home medications including flecainide, metoprolol # hypertension - stable - continue home antihypertensives # hyperlipidemia - continue statin DVT prophylaxis: Eliquis Time Spent With Patient Time: Total time managing care of this patient today ____ minutes. Quality Stroke Does the patient have a stroke diagnosis?: No VTE Prior VTE?: No VTE Risk Level:: Medical - moderate - high VTE Device Contraindication: Treatment Not Indicated VTE Drug Contraindication: N/A - Med Ordered
[2022-12-29 00:05] LABS: Appearance Urine Clear; Color Urine Yellow; Glucose Urine UA Negative (Negative); Leukocyte Esterase Urine Negative (Negative); Nitrite Urine Negative (Negative); Specific Gravity - Urine 1.025 (1.005-1.025); Urine Blood Negative (Negative); Urine Ketones Negative (Negative); Urine Protein Negative (Neg-Trace)
[2022-12-29] MEDS: 0.9 % Sodium Chloride Flush 3 ML SYRINGE IVFLUSH ×4 (02:12→20:18)
[2022-12-29 06:09] LABS: Alanine Aminotransferase 16 U/L (0-31); Albumin Level 3.6 g/dL (3.5-5.0); Alkaline Phosphatase 100 U/L (39-117); Anion Gap 15 (12-20); Aspartate Amino Transferase 13 U/L (5-31); Bilirubin Total 1.3 mg/dL (0.0-1.0); Blood Urea Nitrogen 19 mg/dL (9-16); Carbon Dioxide 24 mmol/L (22-29); Chloride 108 mmol/L (96-108); Creatinine Clr Calc Pharmacy 112.1; Estimated Glomerular Filt Rate > 60; Glucose Random 132 mg/dL (60-115); Potassium 3.9 mmol/L (3.3-5.1); Sodium 143 mmol/L (135-145)
--- NOTE | 2022-12-29 07:31 | PHA.MEDREC ---
Pharmacy Consult ? Medication Reconciliation Pharmacy has reviewed the medication reconciliation.
[2022-12-29 09:25] LABS: Thyroid Stimulating Hormone 4.17 uIU/mL (0.32-4.0)
--- NOTE | 2022-12-29 09:57 | MHC.CM.PN ---
pt lives with has own ride home has no previous services is covid vax 4 is not expected to nee servceis when dcd
--- NOTE | 2022-12-29 11:39 | PM.CNCAR ---
History of Present Illness History of Present Illness Date of Service: 12/29/22 Requesting physician: Dania Sherwood Chief complaint: Afib w RVR Narrative: Pleasant 67-year-old female who is here for palpitations and AFib with RVR. She was recently discharged from hospital after undergoing cardioversion. Her flecainide dose was increased from 50-150 mg b.i.d. at that stage. She said she did fine for few days till Thursday when she started feeling palpitations which she describes as a odd sensation in her chest. No chest discomfort shortness of breath. No peripheral edema or any symptoms/signs of congestive heart failure. She has been taking her apixaban regularly. With these symptoms she presented to ER and was noted to be in AFib with RVR again. She has been admitted for further management. She is saying she is feeling okay right now. She has no chest discomfort or significant shortness of breath. She is saying when she walks she gets some breathing issues. [facility] Past Medical History Medical History Asthma exacerbation Bronchial asthma Bronchitis History of cardioversion HTN (hypertension) MDD (major depressive disorder) Morbid obesity JIMBO on CPAP Post covid-19 condition, unspecified Surgical History Surgical History Anal fistula H/O colonoscopy H/O umbilical hernia repair History of cholecystectomy History of hysterectomy for cancer Hx of laparoscopic gastric banding Social History Social History Household Members: Spouse Housing: House Do you presently have visiting nurse or other home services: No Alcohol intake: current Alcohol intake frequency: does not drink Patient Tobacco Use Status: Former Tobacco user Quit Date: 1992 Tobacco use type: Cigarette Years Smoked: 25 +/- Second Hand Smoke Exposure: No Use of substances other than those prescribed or required for medical reasons: No Currently Displaying Signs/Symptoms of Drug Intoxication Withdrawal: No Have you been hit, kicked, punched, or otherwise hurt by someone within the past year? If so, by whom?: No Do you feel safe in your current relationship?: Yes Is there a partner from a previous relationship who is making you feel unsafe now?: No Are you made to feel afraid or neglected: No Advance Directives: Yes Advance Directives on File: Yes Advance Directives Date on File: 12/25/22 Do you have thoughts of harming others: None Do you have a plan to hurt others: No Plan Nutrition Risks: No Nutritional Risk Patient : No service: No Current occupational status: unemployed Meds Allergies Allergy/AdvReac Type Severity Reaction Status Date / Time adhesive tape [ADHESIVE TAPE] Allergy Intermediate BLISTERS Verified 11/27/22 14:49 Active Medications: Current Medications Acetaminophen (Acetaminophen 325 Mg Tablet) 650 mg PO Q6H PRN PRN Reason: Pain, Mild (Pain Scale 1-3) Albuterol Sulfate (Albuterol Sulfate 90 Mcg 8 Gm Inhaler) 2 puff INHALE Q4H PRN PRN Reason: shortness of breath or wheezing Apixaban (Apixaban 5 Mg Tablet) 5 mg PO BID [facility] Atorvastatin Calcium (Atorvastatin Calcium 40 Mg Tablet) 40 mg PO BEDTIME [facility] Docusate Sodium (Docusate Sodium 100 Mg Capsule) 100 mg PO DAILY PRN PRN Reason: Constipation Fluticasone/Vilanterol (Fluticasone/Vilanterol 200/25 Blst.W.Dev) 1 puff INHALE DAILY [facility] Furosemide (Furosemide 40 Mg Tablet) 40 mg PO DAILY [facility]; Protocol Metoprolol Succinate (Metoprolol Succinate Er 50 Mg Tab.Er.24h) 50 mg PO DAILY [facility]; Protocol Multivitamins/Vitamin C (Multivitamin Tablet) 1 tab PO DAILY [facility] Non-Formulary Medication (Mecobalamin (Vitamin B12)) 5,000 mcg PO MOWEFR@1000 [facility] Non-Formulary Medication ([place]-3 Fatty Acids) 1,250 mg PO DAILY [facility] Omeprazole (Omeprazole 20 Mg Capsule.Dr) 20 mg PO DAILY@0630 [facility] Ondansetron HCl (Ondansetron Hcl 4 Mg/2 Ml Vial) 4 mg IVPUSH Q8H PRN PRN Reason: Nausea and Vomiting Paroxetine HCl (Paroxetine Hcl 30 Mg Tablet) 45 mg PO DAILY [facility] Sodium Chloride (0.9 % Sodium Chloride Flush 3 Ml Syringe) 3 ml IVFLUSH QSHIFT [facility] Last Admin: 12/29/22 08:42 Dose: 3 ml Valsartan (Valsartan 160 Mg Tablet) 160 mg PO DAILY [facility]; Protocol Vitamin D (Cholecalciferol (Vitamin D3) 25 Mcg Tablet) 25 mcg PO DAILY [facility] Home Medications Medication Instructions Recorded Confirmed Last Taken Type paroxetine HCl 30 mg tablet 45 mg PO DAILY 10/01/20 12/29/22 12/28/22 10:00 History mecobalamin (vitamin B12) 5,000 5,000 mcg PO MOWEFR@1000 08/06/22 12/29/22 12/28/22 10:00 History mcg disintegrating tablet rosuvastatin 10 mg tablet 10 mg PO BEDTIME 08/06/22 12/29/22 12/27/22 22:00 History omeprazole 20 mg capsule,delayed 20 mg PO DAILY@0630 10/14/22 12/29/22 12/28/22 10:00 History release budesonide-formoterol HFA 160 2 puff inhalation BID 12/22/22 12/29/22 12/28/22 10:00 History mcg-4.5 mcg/actuation aerosol inhaler (Symbicort) Physical Exam Vital Signs: Vital Signs: Last Vital Signs Temp 97.1 F 12/29/22 11:33 Pulse 95 12/29/22 11:33 Resp 18 12/29/22 11:33 BP 150/71 H 12/29/22 11:33 Pulse Ox 97 12/29/22 11:33 O2 Del Method 12/29/22 11:33 BMI result Body Mass Index 56.9 GENERAL APPEARANCE: in no acute distress, pleasant. NECK: no carotid bruit, no jugular venous distention. SKIN: no suspicious lesions, warm and dry. HEART: no murmurs, irregular rate and rhythm. LUNGS: clear to auscultation bilaterally. ABDOMEN: soft, nontender. EXTREMITIES: no edema. PERIPHERAL PULSES: equal. NEUROLOGIC: No gross deficits, AAO X 3 Objective Labs and Meds 12/28/22 21:38 12/29/22 05:43 Lab results: Laboratory Results - last 24 hr 12/28/22 12/28/22 12/28/22 21:38 21:38 21:38 WBC 9.2 RBC 5.04 Hgb 14.7 Hct 43.0 MCV 85.3 MCH 29.2 MCHC 34.2 RDW 13.7 Plt Count 265 MPV 10.3 Immature Gran % (Auto) 0.2 Neut % (Auto) 63.2 Lymph % (Auto) 26.8 [place] % (Auto) 8.0 Eos % (Auto) 1.5 Baso % (Auto) 0.3 Lymph # (Auto) 2.5 [place] # (Auto) 0.7 Eos # (Auto) 0.1 Baso # (Auto) 0.0 Abs Immat Gran (auto) 0.02 Absolute Neuts (auto) 5.8 Absolute Nucleated RBC 0.000 Nucleated RBC % (auto) 0.0 PT INR APTT Sodium 141 Potassium 4.1 Chloride 106 Carbon Dioxide 25 Anion Gap 14 BUN 22 H Creatinine 0.74 Estim Creat Clear Calc 103.8 Estimated GFR > 60 Random Glucose 140 H Calcium 9.2 Magnesium Total Bilirubin 0.9 Direct Bilirubin 0.2 AST 15 ALT 15 Alkaline Phosphatase 110 Troponin I High Sens < 3.5 B-Natriuretic Peptide Total Protein 6.2 L Albumin 3.8 Lipase 19 TSH Urine Color Urine Appearance Urine pH Ur Specific [place] Urine Protein Urine Glucose (UA) Urine Ketones Urine Blood Urine Nitrite Ur Leukocyte Esterase COVID-19 ([facility]) COVID-[employer]ano 12/28/22 12/28/22 12/28/22 21:38 21:38 21:38 WBC RBC Hgb Hct MCV MCH MCHC RDW Plt Count MPV Immature Gran % (Auto) Neut % (Auto) Lymph % (Auto) [place] % (Auto) Eos % (Auto) Baso % (Auto) Lymph # (Auto) [place] # (Auto) Eos # (Auto) Baso # (Auto) Abs Immat Gran (auto) Absolute Neuts (auto) Absolute Nucleated RBC Nucleated RBC % (auto) PT 12.4 INR 1.1 APTT 36.5 H Sodium Potassium Chloride Carbon Dioxide Anion Gap BUN Creatinine Estim Creat Clear Calc Estimated GFR Random Glucose Calcium Magnesium Total Bilirubin Direct Bilirubin AST ALT Alkaline Phosphatase Troponin I High Sens B-Natriuretic Peptide 167 H Total Protein Albumin Lipase TSH Urine Color Urine Appearance Urine pH Ur Specific [place] Urine Protein Urine Glucose (UA) Urine Ketones Urine Blood Urine Nitrite Ur Leukocyte Esterase COVID-19 ([facility]) Negative [employer] See Note 12/28/22 12/29/22 23:55 05:43 WBC RBC Hgb Hct MCV MCH MCHC RDW Plt Count MPV Immature Gran % (Auto) Neut % (Auto) Lymph % (Auto) [place] % (Auto) Eos % (Auto) Baso % (Auto) Lymph # (Auto) [place] # (Auto) Eos # (Auto) Baso # (Auto) Abs Immat Gran (auto) Absolute Neuts (auto) Absolute Nucleated RBC Nucleated RBC % (auto) PT INR APTT Sodium 143 Potassium 3.9 Chloride 108 Carbon Dioxide 24 Anion Gap 15 BUN 19 H Creatinine 0.68 Estim Creat Clear Calc 112.1 Estimated GFR > 60 Random Glucose 132 H Calcium 9.0 Magnesium 2.0 Total Bilirubin 1.3 H Direct Bilirubin AST 13 ALT 16 Alkaline Phosphatase 100 Troponin I High Sens B-Natriuretic Peptide Total Protein 6.0 L Albumin 3.6 Lipase TSH 4.17 H Urine Color Yellow Urine Appearance Clear Urine pH 5.0 Ur Specific [place] 1.025 Urine Protein Negative Urine Glucose (UA) Negative Urine Ketones Negative Urine Blood Negative Urine Nitrite Negative Ur Leukocyte Esterase Negative COVID-19 ([facility]) COVID-19 Clin Com Imaging Radiologist's impression: Impressions Chest X-Ray 12/28/22 22:45 IMPRESSION: No dense consolidation. Bronchial wall thickening can be seen with a small airways process such as asthma or atypical/viral infection. Assessment and Plan (1) Atrial fibrillation with rapid ventricular response: Status: Acute Plan Pleasant 67-year-old female who is here for AFib with RVR. She was previously given amiodarone but later changed to flecainide because amiodarone has long-term side effects. On flecainide she has been admitted twice now with AFib with RVR. The recent episode is on 150 mg twice a day flecainide. We have stopped the flecainide at this stage. Load her with 400 mg twice a day of amiodarone. Given history of congestive heart failure Multaq cannot be used. We will re-attempt cardioversion with amiodarone potentially tomorrow afternoon. Continue Eliquis uninterrupted. Thank you for allowing me to participate in the care of your patient. Please feel free to contact me if you have any questions. Time Spent With Patient Time: Total time managing care of this patient today ____ minutes. Procedures Date of Service Date of Service: 12/29/22
[2022-12-29] MEDS: Apixaban 5 MG TABLET PO ×2 (11:58→20:16)
[2022-12-29] MEDS: Amiodarone HCL 200 MG TABLET 400 MG PO ×2 (11:58→20:17)
--- NOTE | 2022-12-29 12:50 | P.PNIM_ITS ---
Subjective Subjective Date of Service: 12/30/22 Interval History: palpitations, in afib Review of Systems she said palpitations denies any chets pain or sob or abd pain or nausea or vomitin Physical Exam Vital Signs: Vital Signs: Last Vital Signs Temp 97.1 F 12/29/22 11:33 Pulse 95 12/29/22 11:33 Resp 18 12/29/22 11:33 BP 150/71 H 12/29/22 11:33 Pulse Ox 97 12/29/22 11:33 O2 Del Method 12/29/22 11:33 BMI result Body Mass Index 56.9 Appearance: Alert.? Oriented X3.? . cvs: irregular rythem, [id number] . res: clear to auscultation ,no rhonchii or wheezing abd: no rebound or guarding ,nt, bs present. ext pulses present , no cyanosis. neuro: axo3 , nonfocal. Objective Data Active Medications Acetaminophen (Acetaminophen 325 Mg Tablet) 650 mg PO Q6H PRN PRN Reason: Pain, Mild (Pain Scale 1-3) Albuterol Sulfate (Albuterol Sulfate 90 Mcg 8 Gm Inhaler) 2 puff INHALE Q4H PRN PRN Reason: shortness of breath or wheezing Amiodarone HCl (Amiodarone Hcl 200 Mg Tablet) 400 mg PO BID [facility] Last Admin: 12/29/22 11:58 Dose: 400 mg Documented By: WADE Apixaban (Apixaban 5 Mg Tablet) 5 mg PO BID [facility] Last Admin: 12/29/22 11:58 Dose: 5 mg Documented By: WADE Atorvastatin Calcium (Atorvastatin Calcium 40 Mg Tablet) 40 mg PO BEDTIME [facility] Docusate Sodium (Docusate Sodium 100 Mg Capsule) 100 mg PO DAILY PRN PRN Reason: Constipation Fluticasone/Vilanterol (Fluticasone/Vilanterol 200/25 Blst.W.Dev) 1 puff INHALE DAILY [facility] Furosemide (Furosemide 40 Mg Tablet) 40 mg PO DAILY [facility]; Protocol Metoprolol Succinate (Metoprolol Succinate Er 50 Mg Tab.Er.24h) 50 mg PO DAILY [facility]; Protocol Multivitamins/Vitamin C (Multivitamin Tablet) 1 tab PO DAILY [facility] Non-Formulary Medication (Mecobalamin (Vitamin B12)) 5,000 mcg PO MOWEFR@1000 [facility] Non-Formulary Medication ([place]-3 Fatty Acids) 1,250 mg PO DAILY [facility] Omeprazole (Omeprazole 20 Mg Capsule.Dr) 20 mg PO DAILY@0630 [facility] Ondansetron HCl (Ondansetron Hcl 4 Mg/2 Ml Vial) 4 mg IVPUSH Q8H PRN PRN Reason: Nausea and Vomiting Paroxetine HCl (Paroxetine Hcl 30 Mg Tablet) 45 mg PO DAILY [facility] Sodium Chloride (0.9 % Sodium Chloride Flush 3 Ml Syringe) 3 ml IVFLUSH QSHIFT [facility] Last Admin: 12/29/22 08:42 Dose: 3 ml Documented By: WADE Valsartan (Valsartan 160 Mg Tablet) 160 mg PO DAILY [facility]; Protocol Vitamin D (Cholecalciferol (Vitamin D3) 25 Mcg Tablet) 25 mcg PO DAILY [facility] Labs 12/28/22 21:38 12/29/22 05:43 Labs: Laboratory Results - last 24 hr 12/28/22 12/28/22 12/28/22 21:38 21:38 21:38 MCV 85.3 MCH 29.2 MCHC 34.2 RDW 13.7 Plt Count 265 MPV 10.3 Immature Gran % (Auto) 0.2 Neut % (Auto) 63.2 Lymph % (Auto) 26.8 Dane % (Auto) 8.0 Eos % (Auto) 1.5 Baso % (Auto) 0.3 Lymph # (Auto) 2.5 Dane # (Auto) 0.7 Eos # (Auto) 0.1 Baso # (Auto) 0.0 Abs Immat Gran (auto) 0.02 Absolute Neuts (auto) 5.8 Absolute Nucleated RBC 0.000 Nucleated RBC % (auto) 0.0 PT INR APTT Anion Gap 14 Estim Creat Clear Calc 103.8 Estimated GFR > 60 Random Glucose 140 H Calcium 9.2 Magnesium Total Bilirubin 0.9 Direct Bilirubin 0.2 AST 15 ALT 15 Alkaline Phosphatase 110 Troponin I High Sens < 3.5 B-Natriuretic Peptide Total Protein 6.2 L Albumin 3.8 Lipase 19 TSH Urine Color Urine Appearance Urine pH Ur Specific [place] Urine Protein Urine Glucose (UA) Urine Ketones Urine Blood Urine Nitrite Ur Leukocyte Esterase COVID-19 ([facility]) COVID-19 Clin Com 12/28/22 12/28/22 12/28/22 21:38 21:38 21:38 MCV MCH MCHC RDW Plt Count MPV Immature Gran % (Auto) Neut % (Auto) Lymph % (Auto) Dane % (Auto) Eos % (Auto) Baso % (Auto) Lymph # (Auto) Dane # (Auto) Eos # (Auto) Baso # (Auto) Abs Immat Gran (auto) Absolute Neuts (auto) Absolute Nucleated RBC Nucleated RBC % (auto) PT 12.4 INR 1.1 APTT 36.5 H Anion Gap Estim Creat Clear Calc Estimated GFR Random Glucose Calcium Magnesium Total Bilirubin Direct Bilirubin AST ALT Alkaline Phosphatase Troponin I High Sens B-Natriuretic Peptide 167 H Total Protein Albumin Lipase TSH Urine Color Urine Appearance Urine pH Ur Specific [place] Urine Protein Urine Glucose (UA) Urine Ketones Urine Blood Urine Nitrite Ur Leukocyte Esterase COVID-19 ([facility]) Negative COVID-19 [employer] See Note 12/28/22 12/29/22 23:55 05:43 MCV MCH MCHC RDW Plt Count MPV Immature Gran % (Auto) Neut % (Auto) Lymph % (Auto) Dane % (Auto) Eos % (Auto) Baso % (Auto) Lymph # (Auto) Dane # (Auto) Eos # (Auto) Baso # (Auto) Abs Immat Gran (auto) Absolute Neuts (auto) Absolute Nucleated RBC Nucleated RBC % (auto) PT INR APTT Anion Gap 15 Estim Creat Clear Calc 112.1 Estimated GFR > 60 Random Glucose 132 H Calcium 9.0 Magnesium 2.0 Total Bilirubin 1.3 H Direct Bilirubin AST 13 ALT 16 Alkaline Phosphatase 100 Troponin I High Sens B-Natriuretic Peptide Total Protein 6.0 L Albumin 3.6 Lipase TSH 4.17 H Urine Color Yellow Urine Appearance Clear Urine pH 5.0 Ur Specific [place] 1.025 Urine Protein Negative Urine Glucose (UA) Negative Urine Ketones Negative Urine Blood Negative Urine Nitrite Negative Ur Leukocyte Esterase Negative COVID-19 ([facility]) COVID-19 Clin Com Assessment and Plan (1) Atrial fibrillation with rapid ventricular response: Status: Acute (2) Elevated TSH: Status: Acute (3) Morbid obesity: Status: Acute Plan [facility] day: 1 67-year-old female with past medical history of AFib with RVR,? cardioverted in the past most recently on 12/22 presents to the hospital in AFib with RVR 1. ch AFib with RVR hr improving added tsh repeat ekg-seems similar to before d/w cardiology :started amiodarone,metoprolol, hold flecainde , apixiban.repeat ekg ,might need 2.? hypertension -? stable -? continue home antihypertensives 3.? hyperlipidemia -? continue statin 4. boderline elevated tsh: will add free t3 and t4. 5. Morbid obesity: Encouraged to lose weight. ?DVT prophylaxis: Eliquis inaptient need : afib with rvr -need telemoniteri,also started amiodarone ,in addition might need cardioversion if does not improve. Time Spent With Patient Time: Total time managing care of this patient today ____ minutes. Quality Stroke Does the patient have a stroke diagnosis?: No VTE Prior VTE?: No VTE Risk Level:: Medical - moderate - high VTE Device Contraindication: Treatment Not Indicated VTE Drug Contraindication: N/A - Med Ordered
--- NOTE | 2022-12-29 13:00 | ECG_ITS ---
Test Reason : afib Blood Pressure : / mmHG Vent. Rate : 102 BPM Atrial Rate : 000 BPM P-R Int : 000 ms QRS Dur : 094 ms QT Int : 324 ms P-R-T Axes : 000 005 137 degrees QTc Int : 422 ms Atrial fibrillation with rapid ventricular response ST & T wave abnormality, consider anterolateral ischemia Abnormal ECG When compared with ECG of 28-DEC-2022 22:12, No significant change was found Referred By: Dania Sherwood Electronically Signed By:Jaime Clifford
--- NOTE | 2022-12-29 15:00 | PC.NURSE ---
Assumed care of patient at this time.
[2022-12-29] MEDS: Atorvastatin Calcium 40 MG TABLET PO (20:16)
[2022-12-30] VITALS (12 sets, daily range): BP systolic 107–168; BP diastolic 66–110; PULSE 61–125; RESP 15–20; TEMP 35.8–36.8; O2SAT 94–100; BMI 57.6
--- NOTE | 2022-12-30 06:14 | PC.NURSE ---
Patient alert and oriented. NPO since midnight. Offer no complaints. safety maintained.
[2022-12-30 06:58] LABS: Free T4 (Free Thyroxine) 1.23 ng/dL (0.71-1.85)
--- NOTE | 2022-12-30 08:18 | P.PNIM_ITS ---
Subjective Subjective Date of Service: 12/30/22 Interval History: afib with rvr Review of Systems she said palpitations seems to be improving denies any chets pain or sob or abd pain or nausea or vomitin Physical Exam Vital Signs: Vital Signs: Last Vital Signs Temp 98.2 F 12/30/22 07:35 Pulse 95 12/30/22 07:35 Resp 18 12/30/22 07:35 BP 108/72 12/30/22 07:35 Pulse Ox 98 12/30/22 07:35 O2 Del Method 12/30/22 07:35 BMI result Body Mass Index 57.6 Appearance: Alert.? Oriented X3.? . cvs: irregular rythem, [id number] . res: clear to auscultation ,no rhonchii or wheezing abd: no rebound or guarding ,nt, bs present. ext pulses present , no cyanosis. neuro: axo3 , nonfocal Objective Data Active Medications Acetaminophen (Acetaminophen 325 Mg Tablet) 650 mg PO Q6H PRN PRN Reason: Pain, Mild (Pain Scale 1-3) Albuterol Sulfate (Albuterol Sulfate 90 Mcg 8 Gm Inhaler) 2 puff INHALE Q4H PRN PRN Reason: shortness of breath or wheezing Amiodarone HCl (Amiodarone Hcl 200 Mg Tablet) 400 mg PO BID [facility] Last Admin: 12/29/22 20:17 Dose: 400 mg Documented By: JOSE ARMANDO Apixaban (Apixaban 5 Mg Tablet) 5 mg PO BID [facility] Last Admin: 12/29/22 20:16 Dose: 5 mg Documented By: JOSE ARMANDO Atorvastatin Calcium (Atorvastatin Calcium 40 Mg Tablet) 40 mg PO BEDTIME [facility] Last Admin: 12/29/22 20:16 Dose: 40 mg Documented By: JOSE ARMANDO Docusate Sodium (Docusate Sodium 100 Mg Capsule) 100 mg PO DAILY PRN PRN Reason: Constipation Fluticasone/Vilanterol (Fluticasone/Vilanterol 200/25 Blst.W.Dev) 1 puff INHALE DAILY [facility] Furosemide (Furosemide 40 Mg Tablet) 40 mg PO DAILY [facility]; Protocol Metoprolol Succinate (Metoprolol Succinate Er 50 Mg Tab.Er.24h) 50 mg PO DAILY [facility]; Protocol Multivitamins/Vitamin C (Multivitamin Tablet) 1 tab PO DAILY [facility] Non-Formulary Medication (Mecobalamin (Vitamin B12)) 5,000 mcg PO MOWEFR@1000 [facility] Non-Formulary Medication ([place]-3 Fatty Acids) 1,250 mg PO DAILY [facility] Omeprazole (Omeprazole 20 Mg Capsule.Dr) 20 mg PO DAILY@0630 [facility] Last Admin: 12/30/22 07:09 Dose: Not Given Ondansetron HCl (Ondansetron Hcl 4 Mg/2 Ml Vial) 4 mg IVPUSH Q8H PRN PRN Reason: Nausea and Vomiting Paroxetine HCl (Paroxetine Hcl 30 Mg Tablet) 45 mg PO DAILY [facility] Sodium Chloride (0.9 % Sodium Chloride Flush 3 Ml Syringe) 3 ml IVFLUSH QSHIFT [facility] Last Admin: 12/29/22 20:18 Dose: 3 ml Documented By: JOSE ARMANDO Valsartan (Valsartan 160 Mg Tablet) 160 mg PO DAILY [facility]; Protocol Vitamin D (Cholecalciferol (Vitamin D3) 25 Mcg Tablet) 25 mcg PO DAILY [facility] Labs 12/28/22 21:38 12/29/22 05:43 Labs: Laboratory Results - last 24 hr 12/29/22 12/30/22 05:43 06:07 TSH 4.17 H Free T4 1.23 Assessment and Plan (1) Atrial fibrillation with rapid ventricular response: Status: Acute (2) Elevated TSH: Status: Acute (3) Morbid obesity: Status: Acute Plan [facility] day: 2 67-year-old female with past medical history of AFib with RVR,? cardioverted in the past most recently on 12/22 presents to the hospital in AFib with RVR 1. ch AFib with RVR hr improving added tsh repeat ekg-seems similar to before d/w cardiology :started amiodarone,metoprolol, hold flecainde , apixiban.repeat ekg ,might need 2.? hypertension -? stable -? continue home antihypertensives 3.? hyperlipidemia -? continue statin 4. boderline elevated tsh: added t3 and t4 pending. 5. Morbid obesity: Encouraged to lose weight. ?DVT prophylaxis: Eliquis inaptient need : afib with rvr -need telemoniteri,also started amiodarone ,in addition might need cardioversion if does not improve. Time Spent With Patient Time: Total time managing care of this patient today ____ minutes. Quality Stroke Does the patient have a stroke diagnosis?: No VTE Prior VTE?: No VTE Risk Level:: Medical - moderate - high VTE Device Contraindication: Treatment Not Indicated VTE Drug Contraindication: N/A - Med Ordered
[2022-12-30] MEDS: Fluticasone/Vilanterol 200/25 BLST.W.DEV 1 PUFF INHALE (08:47)
[2022-12-30] MEDS: Multivitamin TABLET 1 TAB PO (09:19)
[2022-12-30] MEDS: Apixaban 5 MG TABLET PO ×2 (09:19→21:50)
[2022-12-30] MEDS: PARoxetine HCL 30 MG TABLET 45 MG PO (09:19)
[2022-12-30] MEDS: Cholecalciferol (Vitamin D3) 25 MCG TABLET PO (09:19)
[2022-12-30] MEDS: 0.9 % Sodium Chloride Flush 3 ML SYRINGE IVFLUSH ×2 (09:22→16:15)
[2022-12-30] MEDS: Metoprolol Succinate ER 50 MG TAB.ER.24H PO (10:16)
[2022-12-30] MEDS: Furosemide 40 MG TABLET PO (10:16)
[2022-12-30] MEDS: Amiodarone HCL 200 MG TABLET 400 MG PO ×2 (10:16→21:50)
--- NOTE | 2022-12-30 12:10 | PM.PNCARD ---
Subjective Subjective Date of Service: 12/30/22 <RANDALL Pate - Last Filed: 12/30/22 12:21> 12/30/22 <Jaime Clifford MD - Last Filed: 12/30/22 18:05> Principal diagnosis: Afib <RANDALL Pate - Last Filed: 12/30/22 12:21> Interval history: Seen at 1030. Today she is resting in bed with nasal CPAP on. NPO this am for planned cardioversion later today. Reports breathing is comfortable, no chest pains and not feeling heart palpitations at present. Tele showing afib, rates 110-120, briefly 130. <RANDALL Pate - Last Filed: 12/30/22 12:21> Review of Systems Review of Systems as above <RANDALL Pate - Last Filed: 12/30/22 12:21> Yes all other systems are reviewed and are negative <RANDALL Pate - Last Filed: 12/30/22 12:21> Physical Exam Vital Signs: Last Vital Signs Temp 97.9 F 12/30/22 11:29 Pulse 81 12/30/22 11:29 Resp 18 12/30/22 11:29 BP 121/90 H 12/30/22 11:29 Pulse Ox 97 12/30/22 11:29 O2 Del Method 12/30/22 11:29 BMI result Body Mass Index 57.6 <RANDALL Pate - Last Filed: 12/30/22 12:21> Const General: cooperative, comfortable and no acute distress <RANDALL Pate - Last Filed: 12/30/22 12:21> Orientation/consciousness: patient oriented x3 <RANDALL Pate - Last Filed: 12/30/22 12:21> Neck Neck: Yes normal visual inspection and Yes no JVD <RANDALL Pate Last Filed: 12/30/22 12:21> Resp Effort & Inspection: normal respiratory effort <RANDALL Pate - Last Filed: 12/30/22 12:21> Auscultation: clear to auscultation bilaterally, no crackles, no rales, no rhonchi and no wheezes <Angie Knight DANIELAC - Last Filed: 12/30/22 12:21> Cardio Jugular venous distension: no JVD <DANIELA PateC - Last Filed: 12/30/22 12:21> Rate: tachycardic <DANIELA PateC - Last Filed: 12/30/22 12:21> Rhythm: abnormal rhythm <Angie Knight DANIELAC - Last Filed: 12/30/22 12:21> Heart sounds: S1 normal heart sound present, S2 normal heart sound present, no gallops, no murmurs and no rubs <Angie KnightVIRGINIALindaC - Last Filed: 12/30/22 12:21> Neuro General: patient oriented x3 <Angie Knight DANIELAC - Last Filed: 12/30/22 12:21> Extrem General: Yes normal to inspection <Angie KnightVIRGINIALindaC - Last Filed: 12/30/22 12:21> Psych Appearance: grossly normal <Angie Knight DANIELAC - Last Filed: 12/30/22 12:21> Mental Status: mental status grossly normal <Angie Knight DANIELAC - Last Filed: 12/30/22 12:21> Speech and movement: Normal speech and movement present <Angie Knight DANIELAC - Last Filed: 12/30/22 12:21> Objective Labs and Meds Result diagrams: 12/28/22 21:38 12/29/22 05:43 <Angie KnightVIRGINIALindaC - Last Filed: 12/30/22 12:21> Lab results: Laboratory Results - last 24 hr 12/30/22 06:07 Free T4 1.23 <Angie Knight [employer] - Last Filed: 12/30/22 12:21> Progress Note: A&P Assessment and plan (1) Atrial fibrillation with rapid ventricular response: Status: Acute <Angie Knight VIRGINIALindaC - Last Filed: 12/30/22 12:21> Assessment and Plan: Recent outpt CVR for persistent AF. Then had recurrent palpitations/ afib in spite of Flecanide use. This admit has been taken off Flecanide and started on Amiodarone loading dose of 400mg bid, which will be for 2 weeks, then reduced to 200mg once daily. Tele currently showing afib, rate 110-120s. She denies feeling heart palpitations at present. She is NPO and anticipating repeat cardioversion today. Continue current meds including Metoprolol, Amiodarone and Eliquis- uninterrupted. <RANDALL Pate - Last Filed: 12/30/22 12:21> (2) Chronic diastolic heart failure: Status: Acute <RANDALL Pate - Last Filed: 12/30/22 12:21> Assessment and Plan: Stable at present. Echo done 12/24/22 showed normal LV function, no regional WMA. No clear evidence of decompensation. Wearing CPAP at present as she is trying to sleep. Continue on usual Lasix. <RANDALL Pate - Last Filed: 12/30/22 12:21> (3) Morbid obesity: Status: Acute <RANDALL Pate - Last Filed: 12/30/22 12:21> Assessment and Plan: Patient seen examined at bedside before cardioversion. She was loaded with amiodarone yesterday. Will continue the amiodarone and Eliquis. Plans to do cardioversion today. <Jaime Clifford MD - Last Filed: 12/30/22 18:05> Time Spent With Patient Time: Total time managing care of this patient today _20___ minutes. <RANDALL Pate - Last Filed: 12/30/22 12:21> Progress Note: Quality Stroke Does the patient have a stroke diagnosis?: No <RANDALL Pate - Last Filed: 12/30/22 12:21> Procedures Date of Service Date of Service: 12/30/22 <RANDALL Pate - Last Filed: 12/30/22 12:21>
--- NOTE | 2022-12-30 13:59 | P.CONAN_ITS ---
HPI - Anesthesia Eval Consult details Narrative: 67 F for cardioversion PMFSH Active Problems Active Problems: All Active Problems (Updated 12/30/22 @ 08:17 by Dania Sherwood MD) Elevated TSH (Acute) Atrial fibrillation, rapid (Acute) Acute hypotension (Acute) Atrial fibrillation with rapid ventricular response (Acute) Bronchitis (Acute) Asthma exacerbation (Acute) PAF (paroxysmal atrial fibrillation) (Acute) Chronic diastolic heart failure (Acute) CHF (congestive heart failure) (Acute) MDD (major depressive disorder) (Acute) HTN (hypertension) (Acute) Chest pain (Acute) Atrial fibrillation (Acute) CHRISTIANSEN (dyspnea on exertion) (Acute) Post covid-19 condition, unspecified (Acute) COVID-19 (Acute) Morbid obesity (Acute) JIMBO on CPAP (Acute) Bronchial asthma (Acute) Past Medical History Medical History Asthma exacerbation Bronchial asthma Bronchitis History of cardioversion HTN (hypertension) MDD (major depressive disorder) Morbid obesity JIMBO on CPAP Post covid-19 condition, unspecified Family History Family history of problems with anesthesia: No Surgical History Surgical History Anal fistula H/O colonoscopy H/O umbilical hernia repair History of cholecystectomy History of hysterectomy for cancer Hx of laparoscopic gastric banding History of Problems with Anesthesia: Yes (See above. Surgery for gall bladder was in the 1980s. No problems with anesthesia since) Social History Social History Household Members: Spouse Housing: House Do you presently have visiting nurse or other home services: No Alcohol intake: current Alcohol intake frequency: does not drink Patient Tobacco Use Status: Former Tobacco user Quit Date: 1992 Tobacco use type: Cigarette Years Smoked: 25 +/- Second Hand Smoke Exposure: No Use of substances other than those prescribed or required for medical reasons: No Currently Displaying Signs/Symptoms of Drug Intoxication Withdrawal: No Have you been hit, kicked, punched, or otherwise hurt by someone within the past year? If so, by whom?: No Do you feel safe in your current relationship?: Yes Is there a partner from a previous relationship who is making you feel unsafe now?: No Are you made to feel afraid or neglected: No Are you DNR?: No Advance Directives: Yes Advance Directives on File: Yes Advance Directives Date on File: 12/25/22 Do you have thoughts of harming others: None Do you have a plan to hurt others: No Plan Nutrition Risks: No Nutritional Risk Patient : No service: No Current occupational status: unemployed Meds Allergies Allergy/AdvReac Type Severity Reaction Status Date / Time adhesive tape [ADHESIVE TAPE] Allergy Intermediate BLISTERS Verified 11/27/22 14:49 Active Medications: Current Medications Acetaminophen (Acetaminophen 325 Mg Tablet) 650 mg PO Q6H PRN PRN Reason: Pain, Mild (Pain Scale 1-3) Albuterol Sulfate (Albuterol Sulfate 90 Mcg 8 Gm Inhaler) 2 puff INHALE Q4H PRN PRN Reason: shortness of breath or wheezing Amiodarone HCl (Amiodarone Hcl 200 Mg Tablet) 400 mg PO BID [facility] Last Admin: 12/30/22 10:16 Dose: 400 mg Apixaban (Apixaban 5 Mg Tablet) 5 mg PO BID [facility] Last Admin: 12/30/22 09:19 Dose: 5 mg Atorvastatin Calcium (Atorvastatin Calcium 40 Mg Tablet) 40 mg PO BEDTIME [facility] Last Admin: 12/29/22 20:16 Dose: 40 mg Docusate Sodium (Docusate Sodium 100 Mg Capsule) 100 mg PO DAILY PRN PRN Reason: Constipation Fluticasone/Vilanterol (Fluticasone/Vilanterol 200/25 Blst.W.Dev) 1 puff INHALE DAILY [facility] Last Admin: 12/30/22 08:47 Dose: 1 puff Furosemide (Furosemide 40 Mg Tablet) 40 mg PO DAILY [facility]; Protocol Last Admin: 12/30/22 10:16 Dose: 40 mg Metoprolol Succinate (Metoprolol Succinate Er 50 Mg Tab.Er.24h) 50 mg PO DAILY [facility]; Protocol Last Admin: 12/30/22 10:16 Dose: 50 mg Multivitamins/Vitamin C (Multivitamin Tablet) 1 tab PO DAILY [facility] Last Admin: 12/30/22 09:19 Dose: 1 tab Non-Formulary Medication (Mecobalamin (Vitamin B12)) 5,000 mcg PO MOWEFR@1000 [facility] Non-Formulary Medication ([place]-3 Fatty Acids) 1,250 mg PO DAILY [facility] Omeprazole (Omeprazole 20 Mg Capsule.Dr) 20 mg PO DAILY@0630 [facility] Last Admin: 12/30/22 07:09 Dose: Not Given Ondansetron HCl (Ondansetron Hcl 4 Mg/2 Ml Vial) 4 mg IVPUSH Q8H PRN PRN Reason: Nausea and Vomiting Paroxetine HCl (Paroxetine Hcl 30 Mg Tablet) 45 mg PO DAILY [facility] Last Admin: 12/30/22 09:19 Dose: 45 mg Sodium Chloride (0.9 % Sodium Chloride Flush 3 Ml Syringe) 3 ml IVFLUSH QSHIFT [facility] Last Admin: 12/30/22 09:22 Dose: 3 ml Valsartan (Valsartan 160 Mg Tablet) 160 mg PO DAILY [facility]; Protocol Last Admin: 12/30/22 10:17 Dose: Not Given Vitamin D (Cholecalciferol (Vitamin D3) 25 Mcg Tablet) 25 mcg PO DAILY [facility] Last Admin: 12/30/22 09:19 Dose: 25 mcg Home Medications Medication Instructions Recorded Confirmed Last Taken Type paroxetine HCl 30 mg tablet 45 mg PO DAILY 10/01/20 12/29/22 12/28/22 10:00 History mecobalamin (vitamin B12) 5,000 5,000 mcg PO MOWEFR@1000 08/06/22 12/29/22 12/28/22 10:00 History mcg disintegrating tablet rosuvastatin 10 mg tablet 10 mg PO BEDTIME 08/06/22 12/29/22 12/27/22 22:00 History omeprazole 20 mg capsule,delayed 20 mg PO DAILY@0630 10/14/22 12/29/22 12/28/22 10:00 History release budesonide-formoterol HFA 160 2 puff inhalation BID 12/22/22 12/29/22 12/28/22 10:00 History mcg-4.5 mcg/actuation aerosol inhaler (Symbicort) Exam Exam Date and Time: December 30, 2022 1359 Height,Weight and Vital Signs: Height 5 ft 3 in Weight 147.5 kg Last Vital Signs Temp 97.5 F 12/30/22 13:26 Pulse 125 H 12/30/22 13:26 Resp 18 12/30/22 13:26 BP 168/110 H 12/30/22 13:26 Pulse Ox 100 12/30/22 13:26 O2 Del Method 12/30/22 13:26 Pertinent Lab Results Pertinent Lab Results: Laboratory Tests 12/28/22 12/28/22 12/28/22 21:38 21:38 21:38 WBC 9.2 RBC 5.04 Hgb 14.7 Hct 43.0 MCV 85.3 MCH 29.2 MCHC 34.2 RDW 13.7 Plt Count 265 MPV 10.3 Immature Gran % (Auto) 0.2 Neut % (Auto) 63.2 Lymph % (Auto) 26.8 [place] % (Auto) 8.0 Eos % (Auto) 1.5 Baso % (Auto) 0.3 Lymph # (Auto) 2.5 [place] # (Auto) 0.7 Eos # (Auto) 0.1 Baso # (Auto) 0.0 Abs Immat Gran (auto) 0.02 Absolute Neuts (auto) 5.8 Absolute Nucleated RBC 0.000 Nucleated RBC % (auto) 0.0 PT INR APTT Sodium 141 Potassium 4.1 Chloride 106 Carbon Dioxide 25 Anion Gap 14 BUN 22 H Creatinine 0.74 Estim Creat Clear Calc 103.8 Estimated GFR > 60 Random Glucose 140 H Calcium 9.2 Magnesium Total Bilirubin 0.9 Direct Bilirubin 0.2 AST 15 ALT 15 Alkaline Phosphatase 110 Troponin I High Sens < 3.5 B-Natriuretic Peptide Total Protein 6.2 L Albumin 3.8 Lipase 19 TSH Free T4 Urine Color Urine Appearance Urine pH Ur Specific [place] Urine Protein Urine Glucose (UA) Urine Ketones Urine Blood Urine Nitrite Ur Leukocyte Esterase COVID-19 ([facility]) COVID-19 Clin Com 12/28/22 12/28/22 12/28/22 21:38 21:38 21:38 WBC RBC Hgb Hct MCV MCH MCHC RDW Plt Count MPV Immature Gran % (Auto) Neut % (Auto) Lymph % (Auto) [place] % (Auto) Eos % (Auto) Baso % (Auto) Lymph # (Auto) [place] # (Auto) Eos # (Auto) Baso # (Auto) Abs Immat Gran (auto) Absolute Neuts (auto) Absolute Nucleated RBC Nucleated RBC % (auto) PT 12.4 INR 1.1 APTT 36.5 H Sodium Potassium Chloride Carbon Dioxide Anion Gap BUN Creatinine Estim Creat Clear Calc Estimated GFR Random Glucose Calcium Magnesium Total Bilirubin Direct Bilirubin AST ALT Alkaline Phosphatase Troponin I High Sens B-Natriuretic Peptide 167 H Total Protein Albumin Lipase TSH Free T4 Urine Color Urine Appearance Urine pH Ur Specific [place] Urine Protein Urine Glucose (UA) Urine Ketones Urine Blood Urine Nitrite Ur Leukocyte Esterase COVID-19 ([facility]) Negative COVID-19 [employer] Com See Note 12/28/22 12/29/22 12/30/22 23:55 05:43 06:07 WBC RBC Hgb Hct MCV MCH MCHC RDW Plt Count MPV Immature Gran % (Auto) Neut % (Auto) Lymph % (Auto) [place] % (Auto) Eos % (Auto) Baso % (Auto) Lymph # (Auto) [place] # (Auto) Eos # (Auto) Baso # (Auto) Abs Immat Gran (auto) Absolute Neuts (auto) Absolute Nucleated RBC Nucleated RBC % (auto) PT INR APTT Sodium 143 Potassium 3.9 Chloride 108 Carbon Dioxide 24 Anion Gap 15 BUN 19 H Creatinine 0.68 Estim Creat Clear Calc 112.1 Estimated GFR > 60 Random Glucose 132 H Calcium 9.0 Magnesium 2.0 Total Bilirubin 1.3 H Direct Bilirubin AST 13 ALT 16 Alkaline Phosphatase 100 Troponin I High Sens B-Natriuretic Peptide Total Protein 6.0 L Albumin 3.6 Lipase TSH 4.17 H Free T4 1.23 Urine Color Yellow Urine Appearance Clear Urine pH 5.0 Ur Specific [place] 1.025 Urine Protein Negative Urine Glucose (UA) Negative Urine Ketones Negative Urine Blood Negative Urine Nitrite Negative Ur Leukocyte Esterase Negative COVID-19 ([facility]) COVID-19 Clin Com Airway Mallampati Class: III TM Dist: >3cm Neck ROM: Full Loose/Missing/Broken Teeth: Yes (Caps ) Heart: Irregular Lungs: distant breath sounds Assessment and Plan Assessment Anesthesia Assessment: Anesthesia Plan Discussed and Chart Reviewed Final Anesthetic Review Family History of Problems with Anesthesia: No History of Problems with Anesthesia: Yes (See above. Surgery for gall bladder was in the 1980s. No problems with anesthesia since) NPO: Yes ASA Class: IV Final Preanesthetic Review: Meds/Allgs Chart Reviewed, Consent Obtained/Reviewed and Anes Risks/Benef Reviewed Patient Risk: High Procedure Risk: Intermediate Anesthetic Plan Anesthetic Plan: MAC: Disposition: Standard PACU
--- NOTE | 2022-12-30 14:51 | ECG_ITS ---
Test Reason : s/p cardioversion Blood Pressure : / mmHG Vent. Rate : 064 BPM Atrial Rate : 064 BPM P-R Int : 194 ms QRS Dur : 090 ms QT Int : 442 ms P-R-T Axes : 045 -02 089 degrees QTc Int : 455 ms Normal sinus rhythm with sinus arrhythmia Nonspecific T wave abnormality Abnormal ECG When compared with ECG of 29-DEC-2022 11:48, Sinus rhythm has replaced Atrial fibrillation Vent. rate has decreased BY 38 BPM Referred By: Jaime Clifford Electronically Signed By:Jaime Clifford
--- NOTE | 2022-12-30 18:05 | HO.CARDIVERS ---
Cardioversion Procedure Note Cardioversion Date of Procedure: 12/30/22 Ordering Provider: Jaime Clifford MD Performing Provider: Jaime Clifford MD Indication for Procedure: AFIB Consent: Verbal and Written consent was obtained from the patient before starting. The patient was made aware of the risk of failure, stroke, skin elder and reactions to anesthesia. Procedure: After consent obtained, defib pads were attached and the patient was sedated by the anesthesia team. Once adequate sedation achieved, the patient was given single synchronized shock of 200 joules which converted her to sinus rhythm. She was left in a stable condition with Anesthesia for recovery. Complications: No immediate complications. Impression: Successful cardioversion. Recommendations: Continue amiodarone 400 mg twice a day for 14 days. At that stage she can be changed to 200 mg once a day. Continue apixaban uninterrupted. We will refer her for EP evaluation for ablation.
[2022-12-30] MEDS: Atorvastatin Calcium 40 MG TABLET PO (21:50)
[2022-12-31] MEDS: 0.9 % Sodium Chloride Flush 3 ML SYRINGE IVFLUSH ×2 (00:21→08:13)
[2022-12-31 03:01] VITALS: BP 122/66; PULSE 58; RESP 20; TEMP 36.5; O2SAT 97
[2022-12-31] MEDS: Omeprazole 20 MG CAPSULE.DR PO (04:57)
[2022-12-31 06:00] VITALS: BMI 57.4
[2022-12-31 06:05] VITALS: BMI 57.4
[2022-12-31] MEDS: Fluticasone/Vilanterol 200/25 BLST.W.DEV 1 PUFF INHALE (07:55)
[2022-12-31 07:56] VITALS: PULSE 64; RESP 18; O2SAT 98
[2022-12-31 07:57] VITALS: BP 128/68; PULSE 57; RESP 20; TEMP 36.3; O2SAT 95
[2022-12-31] MEDS: Furosemide 40 MG TABLET PO (08:08)
[2022-12-31] MEDS: Multivitamin TABLET 1 TAB PO (08:11)
[2022-12-31] MEDS: Apixaban 5 MG TABLET PO (08:11)
[2022-12-31] MEDS: Cholecalciferol (Vitamin D3) 25 MCG TABLET PO (08:11)
[2022-12-31] MEDS: PARoxetine HCL 30 MG TABLET 45 MG PO (08:12)
[2022-12-31] MEDS: Amiodarone HCL 200 MG TABLET 400 MG PO (08:13)
[2022-12-31] MEDS: Docusate Sodium 100 MG CAPSULE PO (08:17)
[2022-12-31] MEDS: Metoprolol Succinate ER 50 MG TAB.ER.24H PO (10:36)
--- NOTE | 2022-12-31 10:47 | PM.DS ---
DS: Providers Provider Date of Service: 12/31/22 Date of admission: 12/28/22 23:55 Primary care physician: Ang Bernstein MD Consults: 12/28/22 23:55 Consult to Cardiology Routine Consulting Provider: Adam Sprague Reason for consultation: A fib w RVR Has provider been notified: Yes DS: Diagnosis Discharge Diagnosis (1) Atrial fibrillation with rapid ventricular response: Status: Acute (2) Chronic diastolic heart failure: Status: Acute (3) Morbid obesity: Status: Acute DS: Summary Hospital Course Hospital Course: 67-year-old female with past medical history of AFib with RVR, recently cardioverted cardioverted multiple times in the past? most recently on 12/22 successfully, hypertension, presents to the hospital with complaints of palpitation.? Patient reports that she was discharged from the hospital on 12 24, was feeling well, then about 3 days ago started having palpitations.? She reports that the palpitations were off and on, but they were symptomatic.? She felt fluttering in her chest and not feeling well.? Called Cardiology, asked to come to the ED.? She reports that her Apple watch showed her to be in AFib with a heart rate between 110 to 150s.? She denies any chest pain, no abdominal pain nausea or vomiting, no diarrhea constipation, no urinary symptoms and no lower extremity edema. ? she states that she is short of breath and exertion, no double vision no numbness weakness or tingling.? On arrival to the ED patient hemodynamically stable with no significant abnormal vitals ?labs reviewed, unremarkable with no significant abnormality, ?EKG on arrival shows AFib with RVR with a heart rate of 112 ?patient will be admitted for cardioversion . hospital course: Patient was admitted for palpitations-found to .afib with rvr : Patient has history of recent cardioversion 12/22-seen by cardiology - patient was started on amiodarone loading and flecainide was discontinued, patient subsequently needed a cardioversion and currently in normal rhythm. Discussed with Cardiology patient will go home with amiodarone and metoprolol. Mild bradycardia mostly in the nighttime, asymptomatic, will continue current regimen amiodarone/metoprolol, patient was strongly advised to continue an interrupted Eliquis. plan: Patient need to take amiodarone 400 mg by mouth twice daily until 01/10/23, then switched to amiodarone 200 mg by mouth daily ,continue metoprolol. Cardiology may arrange their own appointment. morbid obesity-strongly encouraged to loose weight. Above management discussed with the patient in detail length she understand and in agreement with the above plan, time spent 50 minute. Time Spent with Patient Time attestation: Total time managing care of this patient today ____ minutes. Discharge coordination time: Greater than 30 minutes Quality: Safe Use of Opioids Does Pt have an Active Cancer Diagnosis on the Problem List?: No Quality: Stroke Does the patient have a stroke diagnosis?: No Physical Exam Vital Signs: Vital Signs: Last Vital Signs Temp 97.4 F 12/31/22 07:57 Pulse 57 12/31/22 07:57 Resp 20 12/31/22 07:57 BP 128/68 12/31/22 07:57 Pulse Ox 95 12/31/22 07:57 O2 Del Method 12/31/22 07:57 O2 Flow Rate 6 12/30/22 14:34 BMI result Body Mass Index 57.4 Appearance: Alert.? Oriented X3.? . cvs: regular rythem, [id number] . res: clear to auscultation ,no rhonchii or wheezing abd: no rebound or guarding ,nt, bs present. ext pulses present , no cyanosis. neuro: axo3 , nonfocal DS: Data Data Completed and Pending Completed studies during hospitalization [Text1]: Procedures Assistance with Respiratory Ventilation, Less than 24 Consecutive Hours, Continuous Positive Airway Pressure (07/23/22) Zoroastrianism of Cardiac Rhythm, Single (07/23/22) Imaging Chest x-ray: Radiologist's impression: ITS Impressions Chest X-Ray 12/28/22 22:45 IMPRESSION: No dense consolidation. Bronchial wall thickening can be seen with a small airways process such as asthma or atypical/viral infection. Discharge Plan Discharge Patient Disposition: Home, Self-Care Discharge Diagnosis: afib -converted to sinus Referrals: Ang Bernstein MD [Primary Care Provider] - 1 Week Discharge Medications: New amiodarone 200 mg Tablet 400 mg PO BID Qty: 60 0RF Rx Instructions: take amiodarone 400 mg po twice daily until 01/10/23,then on 01/11/23 switch to amiodarone 200mg po daily Continued cholecalciferol (vitamin D3) 25 mcg (1,000 unit) capsule 25 mcg PO DAILY Qty: 30 0RF multivitamin Tablet 1 tab PO DAILY Qty: 30 0RF omega-3 fatty acids 1,250 mg capsule 1,250 mg PO DAILY Qty: 30 0RF metoprolol succinate [Toprol XL] 50 mg tablet extended release 24 hr 50 mg PO DAILY Qty: 60 3RF furosemide [Lasix] 40 mg tablet 40 mg PO DAILY 30 Days Qty: 30 5RF budesonide-formoterol [Symbicort] 160-4.5 mcg/actuation HFA aerosol inhaler 2 puff inhalation BID albuterol sulfate [ProAir HFA] 90 mcg/actuation HFA aerosol inhaler 2 puff inhalation Q4-6H PRN (Reason: shortness of breath or wheezing) 30 Days Qty: 8.5 3RF paroxetine HCl 30 mg tablet 45 mg PO DAILY mecobalamin (vitamin B12) 5,000 mcg tablet,disintegrating 5,000 mcg PO MOWEFR@1000 rosuvastatin 10 mg tablet 10 mg PO BEDTIME valsartan 160 mg tablet 160 mg PO DAILY Qty: 60 3RF Eliquis 5 mg tablet 5 mg PO BID 90 Days Qty: 180 3RF omeprazole 20 mg capsule,delayed release(DR/EC) 20 mg PO DAILY@0630 Discontinued flecainide 50 mg Tablet 150 mg PO Q12H Qty: 180 0RF Discharge Orders: Discharge Order (Routine); Ordered 12/31/22 Ordered By: Dania Sherwood Diet: Advance to usual diet Activity on Discharge: As tolerated Stand Alone Forms: Patient Portal Discharge page Care Plan Goals: Patient was admitted for palpitations-found to have elevated heart rate and irregular heartbeat: Patient has history of cardioversion, currently patient was started on amiodarone and flecainide was discontinued, patient subsequently needed a cardioversion and currently in normal rhythm. Discussed with Cardiology patient will go home with amiodarone and metoprolol. Mild bradycardia mostly in the nighttime, asymptomatic, will continue current regimen amiodarone/metoprolol, patient was strongly advised to continue an interrupted Eliquis. plan: Patient need to take amiodarone 400 mg by mouth twice daily until 01/10/23, then switched to amiodarone 200 mg by mouth daily ,continue metoprolol. Cardiology may arrange their own appointment. Above management discussed with the patient in detail length she understand and in agreement with the above plan, time spent 50 minute. Health Concerns: as above. Plan of Treatment: As above. Assessment: As above. Patient Instructions: A-fib (Atrial Fibrillation) (DC)
--- NOTE | 2022-12-31 10:56 | MHC.CM.PN ---
Addendum entered by Justine Hill 12/31/22 11:03: Patient will not be going to the DC lounge. The patient has arranged for transport @ 12pm. The nurse has not removed IVs and provided the DC education information. Patient will be picked up in < 1hr. by a family member. Original Note: [place] 12/29/22 Female s/p cardioversion is discharge to home self care. Patient has arranged for transport home. She may go to the discharge lounge if transport can not be arranged timely.
--- NOTE | 2022-12-31 11:39 | P.PNCA_ITS ---
Subjective Subjective Date of Service: 12/31/22 Principal diagnosis: Afib Interval history: Seen and examined at bedside. Status post cardioversion. In sinus rhythm. Physical Exam Vital Signs: Last Vital Signs Temp 97.4 F 12/31/22 07:57 Pulse 57 12/31/22 07:57 Resp 20 12/31/22 07:57 BP 128/68 12/31/22 07:57 Pulse Ox 95 12/31/22 07:57 O2 Del Method 12/31/22 07:57 O2 Flow Rate 6 12/30/22 14:34 BMI result Body Mass Index 57.4 GENERAL APPEARANCE: in no acute distress, pleasant. NECK: no carotid bruit, no jugular venous distention. SKIN: no suspicious lesions, warm and dry. HEART: no murmurs, regular rate and rhythm. LUNGS: clear to auscultation bilaterally. ABDOMEN: soft, nontender. EXTREMITIES: Mild edema. PERIPHERAL PULSES: equal. NEUROLOGIC: No gross deficits, AAO X 3 Objective Labs and Meds 12/28/22 21:38 12/29/22 05:43 Progress Note: A&P Assessment and plan (1) Atrial fibrillation with rapid ventricular response: Status: Acute Plan Pleasant 67-year-old female with paroxysmal atrial fibrillation. She is now status post cardioversion and has been started on amiodarone. Continue amiodarone 400 mg twice a day times 10 days. After that amiodarone should be decreased to 200 mg once a day. Continue metoprolol as before. Continue apixaban uninterrupted. We will arrange consultation with electrophysiology at [facility] for atrial fibrillation ablation. Can be discharged home. Thank you for allowing me to participate in the care of your patient. Please feel free to contact me if you have any questions. Time Spent With Patient Time: Total time managing care of this patient today ____ minutes. Progress Note: Quality Stroke Does the patient have a stroke diagnosis?: No Procedures Date of Service Date of Service: 12/31/22
--- NOTE | 2022-12-31 14:18 | HO.POSTANES ---
Post Anesthesia Evaluation Post Anesthesia Evaluation Vital Signs: Vital Signs Temp Pulse Resp BP Pulse Ox O2 Del Method 12/31/22 07:57 97.4 F 57 20 128/68 95 Room Air 12/31/22 07:56 64 18 12/31/22 03:01 97.7 F 58 20 122/66 97 CPAP Anesthesia: General Mental Status: Awake Pain Control: Satisfactory Nausea/Vomiting: None Hydration: Adequate Anesthesia-Related Issues: No Anes. Related Issues
[2023-01-01 07:54] LABS: Triiodothyronine T3 Free 3.2 pg/mL (2.3-4.2)
[2023-01-04 16:04] LABS: Triiodothyronine T3 Reverse 17 ng/dL (8-25)
== END 2022-12-31 12:30 | disposition home or self-care (01) ==
LOC: HO.ED 12-29 00:01 → HO.EDOVER 12-29 00:03 → HO.IMC 12-29 00:15
PROVIDERS: Internal Medicine Cardiovascular Disease; Physician Assistant; Admitting Provider Internal Medicine; Emergency Provider Emergency Medicine; PCP Internal Medicine; Visit Provider Internal Medicine
PROC: 5A2204Z Restoration of Cardiac Rhythm, Single (ICD-10-PCS; principal; 2022-12-30 14:00)
DX: I48.20 Chronic atrial fibrillation, unspecified (principal); I11.0 Hypertensive heart disease with heart failure; I50.9 Heart failure, unspecified; E66.01 Morbid (severe) obesity due to excess calories; Z68.43 Body mass index [BMI] 50.0-59.9, adult; Z20.822 Contact with and (suspected) exposure to COVID-19
CPT/HCPCS: 36415; 71045; 80048; 80053; 80076; 81003; 83690; 83735; 83880; 84439; 84443; 84481; 84482; 84484; 85025; 85610; 85730; 87635; 92960; 93005; 94640; 94660; 96374; 99222; 99285; J0171; J0461

== ENCOUNTER → 2023-01-08 14:53 | Outpatient (BNVA) | payer MEDICARE, OTHER, SELFPAY | PROVIDERS: PCP Internal Medicine; Referring Provider Internal Medicine; Visit Provider Nurse Practitioner Family | DX: R00.1 Bradycardia, unspecified (principal); R94.31 Abnormal electrocardiogram [ECG] [EKG] | CPT/HCPCS: 93005 ==

== ENCOUNTER → 2023-01-19 15:33 | Outpatient (BNVA) | payer MEDICARE, OTHER, SELFPAY | PROVIDERS: PCP Internal Medicine; Visit Provider Internal Medicine Cardiovascular Disease | DX: I48.0 Paroxysmal atrial fibrillation (principal); Z79.01 Long term (current) use of anticoagulants | CPT/HCPCS: 93005; 99212 ==

== ENCOUNTER → 2023-01-22 13:51 | Outpatient (BNVA) | payer MEDICARE, OTHER, SELFPAY | PROVIDERS: PCP Internal Medicine; Visit Provider Internal Medicine | DX: J45.909 Unspecified asthma, uncomplicated (principal); G47.33 Obstructive sleep apnea (adult) (pediatric); I48.0 Paroxysmal atrial fibrillation; E66.01 Morbid (severe) obesity due to excess calories; Z68.43 Body mass index [BMI] 50.0-59.9, adult; Z99.89 Dependence on other enabling machines and devices | CPT/HCPCS: 99212 ==

== ENCOUNTER 2023-03-11 13:17 | Emergency (ER) | payer MEDICARE, OTHER, SELFPAY ==
--- NOTE | ~2023-03-11 | CT_ITS ---
EXAMINATION: CT ABDOMEN AND PELVIS WITHOUT CONTRAST CLINICAL INFORMATION: Nausea, vomiting, diarrhea COMPARISON: CT abdomen and pelvis with oral and IV contrast 04/24/2022 TECHNIQUE: Multidetector volumetric imaging was performed from the superior aspect of the liver through the pubic symphysis. No oral or IV contrast. Sagittal and coronal reformatted images were obtained on the technologist's workstation. This CT examination was performed using dose optimization techniques as appropriate, variously including the following: *Automated exposure control *Adjustment of mA and/or kV according to patient size (this includes techniques or standardized protocols for targeted exams where dose is matched to indication/reason for exam; i.e. extremities or head) *Use of iterative reconstruction technique DLP: 1433 mGy-cm FINDINGS: LUNG BASES: Lung bases are unremarkable. Mild cardiomegaly. No pericardial effusion. Mitral annulus calcification again seen. LIVER, GALLBLADDER, AND BILIARY TREE: There is mild hepatomegaly similar to prior exam. The liver parenchyma is homogeneous. No focal parenchymal lesion. There is been prior cholecystectomy. No intrahepatic or extrahepatic ductal dilatation. PANCREAS: Unremarkable. SPLEEN: Unremarkable. ADRENAL GLANDS: Unremarkable. KIDNEYS AND URETERS: No hydronephrosis, hydroureter, calculi, or perinephric stranding. There is a stable parapelvic cyst interpolar left kidney approximately 2 cm. No additional imaging follow-up recommended. BLADDER: Unremarkable. GASTROINTESTINAL TRACT: Gastric lap band present. There is gaseous and fluid-filled distention stomach. No wall thickening. No small or large bowel obstruction or focal inflammatory changes in bowel or mesentery. Appendix not well visualized. No inflammatory changes around cecum or terminal ileum.. Extensive diverticulosis left and sigmoid colon. No diverticulitis. No ascites or inflammatory changes. No pneumatosis or free air. ABDOMINAL WALL: No significant hernia is appreciated. LYMPH NODES: No lymphadenopathy. VASCULAR: Unremarkable. PELVIC VISCERA: Unremarkable. OSSEOUS STRUCTURES: No acute bony abnormality. CT/CT abdomen pelvis wo IV con IMPRESSION: -Distended stomach, gastric lap again. No small or large bowel obstruction. -No focal inflammatory changes. No ascites or free air. -Prior cholecystectomy. No ductal dilatation. -No hydronephrosis or perinephric stranding.
[2023-03-11 13:22] VITALS: BP 148/88; BP 169/84; PULSE 92; PULSE 97; RESP 18; TEMP 37.3; O2SAT 95; O2SAT 96; BMI 60.1
[2023-03-11 13:26] VITALS: PULSE 93; RESP 18; O2SAT 95
[2023-03-11 14:05] LABS: Basophils Percent Auto 0.2 % (0-2); Hematocrit 44.4 % (37.0-47.0); Hemoglobin 14.8 g/dl (12.0-16.0); Imm Gran Abs Auto 0.02 X10*3/uL (0.00-0.03); Imm Gran Pct Auto 0.2 % (0.0-0.4); Lymphocytes Absolute Auto 0.4 X10*3/uL (1.2-4.9); Lymphocytes Percent Auto 3.4 % (20-40); MANUAL DIFF FLAG SCAN; Mean Corpuscular HGB Conc 33.3 g/dl (31.0-35.0); Mean Corpuscular Hemoglobin 28.7 pg (27.0-33.0); Mean Corpuscular Volume 86.2 fL (80.0-98.0); Mean Platelet Volume 10.4 fL (9.4-12.3); Monocytes Absolute Auto 0.6 X10*3/uL (0.1-1.2); Monocytes Percent Auto 6.1 % (2-11); Neutrophils Absolute Auto 9.3 x10*3/uL (2.0-8.3); Neutrophils Percent Auto 90.1 % (45-73); Platelet Count 233 X10*3/uL (160-400); Red Blood Count 5.15 X10*6/uL (4.20-5.50); Red Cell Distribution Width 13.2 % (11.0-16.0); SCAN SMEAR FLAG 1; White Blood Count 10.4 X10*3/uL (4.8-10.8)
[2023-03-11] MEDS: ondansetron HCL 4 MG/2 ML VIAL IVPUSH (14:10)
[2023-03-11] MEDS: Morphine Sulfate 4 MG/ML CARTRIDGE IVPUSH (14:10)
--- NOTE | 2023-03-11 14:11 | PC.NURSE ---
Medicated as charted for 6/[address], labs drawn. family at bedside
[2023-03-11 14:19] LABS: Alanine Aminotransferase 17 U/L (0-31); Albumin Level 3.9 g/dL (3.5-5.0); Alkaline Phosphatase 93 U/L (39-117); Anion Gap 14 (12-20); Aspartate Amino Transferase 14 U/L (5-31); Bilirubin Direct 0.4 mg/dL (0.0-0.5); Bilirubin Total 1.9 mg/dL (0.0-1.0); Blood Urea Nitrogen 15 mg/dL (9-16); Calcium 8.4 mg/dL (8.4-10.2); Carbon Dioxide 23 mmol/L (22-29); Chloride 108 mmol/L (96-108); Creatinine Clr Calc Pharmacy 125.5; Estimated Glomerular Filt Rate > 60; Glucose Random 185 mg/dL (60-115); Lipase 8 U/L (8-78); Magnesium 1.9 mg/dL (1.6-2.6); Potassium 3.3 mmol/L (3.3-5.1); Sodium 142 mmol/L (135-145); Total Protein 6.3 g/dL (6.5-8.0)
[2023-03-11 14:25] LABS: SLIDE REVIEW VERIFIED
--- NOTE | 2023-03-11 15:42 | ED_ITS ---
HPI - Nausea/Vomiting/Diarrhea General Chief complaint: Nausea/Vomiting/Diarrhea <TEODORA Pablo Last Filed: 03/11/23 16:25> Stated complaint: Nausea, Diarrhea <TEODORA Pablo - Last Filed: 03/11/23 16:25> Time Seen by Provider: 03/11/23 13:32 <TEODORA Pablo - Last Filed: 03/11/23 16:25> Source: patient and EMS <TEODORA Pablo Last Filed: 03/11/23 16:25> Mode of arrival: EMS <TEODORA Pablo Last Filed: 03/11/23 16:25> Limitations: no limitations <TEODORA Pablo Last Filed: 03/11/23 16:25> History of Present Illness HPI Narrative: 67 y/o female with history of afib, HTN, HFpEF, morbid obesity, history of lap band placement several years ago, released by her surgeon a few years back who presents to the ER for evaluation of diffuse abdominal pain, nausea and dry heaving that started last night after eating at [employer] and lasted all night. She also reports 1 episode of diarrhea today. She states her was recently sick. She denies fever, chills. No urinary symptoms. <TEODORA Pablo - Last Filed: 03/11/23 16:25> MD elicited complaint: nausea, vomiting, diarrhea and abdominal pain <TEODORA Pablo - Last Filed: 03/11/23 16:25> Onset (ago): day(s) (1) <TEODORA Pablo - Last Filed: 03/11/23 16:25> Description of diarrhea: loose <TEODORA Pablo Last Filed: 03/11/23 16:25> Associated nausea: Yes <TEODORA Pablo Last Filed: 03/11/23 16:25> Associated abdominal pain: Yes <TEODORA Pablo Last Filed: 03/11/23 16:25> Location of pain: diffuse <TEODORA Pablo - Last Filed: 03/11/23 16:25> Radiation: diffuse <TEODORA Pablo - Last Filed: 03/11/23 16:25> Pain consistency: intermittent <TEODORA Pablo - Last Filed: 03/11/23 16:25> Severity: moderate <TEODORA Pablo - Last Filed: 03/11/23 16:25> Quality: stabbing <TEODORA Pablo - Last Filed: 03/11/23 16:25> Exacerbating factors: eating <TEODORA Pablo - Last Filed: 03/11/23 16:25> Relieving factors: none <TEODORA Pablo - Last Filed: 03/11/23 16:25> Context: history of abdominal surgery <TEODORA Pablo - Last Filed: 03/11/23 16:25> Associated symptoms: loss of appetite, malaise, nausea/vomiting and weakness <TEODORA Pablo - Last Filed: 03/11/23 16:25> Related Data Home medications: Home Medications Medication Instructions Recorded Confirmed paroxetine HCl 30 mg tablet 45 mg PO DAILY 10/01/20 01/19/23 mecobalamin (vitamin B12) 5,000 5,000 mcg PO MOWEFR@1000 08/06/22 01/19/23 mcg disintegrating tablet rosuvastatin 10 mg tablet 10 mg PO BEDTIME 08/06/22 01/19/23 omeprazole 20 mg capsule,delayed 20 mg PO DAILY@0630 10/14/22 01/19/23 release budesonide-formoterol HFA 160 2 puff inhalation BID 12/22/22 01/19/23 mcg-4.5 mcg/actuation aerosol inhaler (Symbicort) Previous Rx's Medication Instructions Recorded cholecalciferol (vitamin D3) 25 25 mcg PO DAILY #30 caps 09/17/20 mcg (1,000 unit) capsule multivitamin 1 tab PO DAILY #30 tabs 09/17/20 omega-3 fatty acids 1,250 mg 1,250 mg PO DAILY #30 caps 09/17/20 capsule albuterol sulfate 90 mcg/actuation 2 puff inhalation Q4-6H PRN 10/29/21 aerosol inhaler (ProAir HFA) shortness of breath or wheezing 30 days #8.5 grams apixaban 5 mg tablet (Eliquis) 5 mg PO BID 90 days #180 tabs 09/03/22 amiodarone 200 mg tablet See Rx Instructions PO .COMPLEX 12/31/22 #100 tabs valsartan 160 mg tablet 160 mg PO DAILY #60 tabs 01/26/23 metoprolol succinate 50 mg 50 mg PO DAILY 90 days #90 tabs 02/09/23 tablet,extended release 24 hr (Toprol XL) furosemide 40 mg tablet (Lasix) 40 mg PO DAILY 90 days #90 tabs 02/12/23 ondansetron 4 mg disintegrating 4 mg PO Q8H PRN nausea and 03/11/23 tablet vomiting #10 tabs promethazine 25 mg rectal 25 mg SD Q6H PRN nausea and 03/11/23 suppository vomiting #12 ea <TEODORA Pablo - Last Filed: 03/11/23 16:25> Allergies/Adverse reactions: Allergies Allergy/AdvReac Type Severity Reaction Status Date / Time adhesive tape [ADHESIVE TAPE] Allergy Intermediate BLISTERS Verified 01/22/23 14:07 <ETODORA Pablo - Last Filed: 03/11/23 16:25> Review of Systems Review of Systems: Yes all other systems are reviewed and are negative <TEODORA Pablo - Last Filed: 03/11/23 16:25> Gastrointestinal: Gastrointestinal: Reports nausea <TEODORA Pablo - Last Filed: 03/11/23 16:25> REPLACED BY [facility] Past Medical History Medical History: Medical History Asthma exacerbation Bronchial asthma Bronchitis History of cardioversion HTN (hypertension) MDD (major depressive disorder) Morbid obesity JIMBO on CPAP PAF (paroxysmal atrial fibrillation) Post covid-19 condition, unspecified <TEODORA Pablo - Last Filed: 03/11/23 16:25> Surgical History: Surgical History Anal fistula H/O colonoscopy H/O umbilical hernia repair History of cholecystectomy History of hysterectomy for cancer Hx of laparoscopic gastric banding <TEODORA Pablo - Last Filed: 03/11/23 16:25> Social History Social History: Social History Household Members: Spouse Housing: House Do you presently have visiting nurse or other home services: No Alcohol intake: current Alcohol intake frequency: does not drink Patient Tobacco Use Status: Former Tobacco user Quit Date: 1992 Tobacco use type: Cigarette Years Smoked: 25 +/- Smoked in Last 30 Days: No Second Hand Smoke Exposure: No Use of substances other than those prescribed or required for medical reasons: No Advance Directives: Yes Advance Directives on File: Yes Advance Directives Date on File: 12/25/22 service: No Current occupational status: unemployed <TEODORA Pablo - Last Filed: 03/11/23 16:25> Physical Exam Vital Signs: Vital Signs: Last Vital Signs Temp 97.7 F 03/11/23 16:58 Pulse 88 03/11/23 16:58 Resp 20 03/11/23 16:58 BP 126/61 03/11/23 16:58 Pulse Ox 97 03/11/23 16:59 O2 Del Method Room Air 03/11/23 16:59 BMI result Body Mass Index 60.1 <TEODORA Pablo - Last Filed: 03/11/23 16:25> Vital Signs: Last Vital Signs Temp 97.7 F 03/11/23 16:58 Pulse 88 03/11/23 16:58 Resp 20 03/11/23 16:58 BP 126/61 03/11/23 16:58 Pulse Ox 97 03/11/23 16:59 O2 Del Method Room Air 03/11/23 16:59 BMI result Body Mass Index 60.1 <Jurgen Botello - Last Filed: 03/11/23 18:28> Appearance: Alert. Oriented X3. No acute distress. Head: normocephalic, atraumatic. Eyes: Pupils equal, round and reactive to light. ENT: Pharynx normal. No tonsillar swelling or exudate. Neck: Normal inspection. Neck supple. CVS: Normal heart rate and rhythm. Pulses normal. Respiratory: No respiratory distress. Breath sounds normal. Abdomen: Morbidly obese, Soft and nontender. +BS x4 Skin: Skin warm and dry. Normal skin color. Normal skin turgor. No rashes. Extremities: No lower extremity edema. No joint swelling. Neuro/psych: Oriented X 3. No motor deficit. No sensory deficit. CN II-XII intact. Normal speech and cognition. <TEODORA Pablo - Last Filed: 03/11/23 16:25> Course Reevaluation(s) Reevaluation #1: Patient received in sign-out at change shift pending re-evaluation after Reglan. Patient has not vomited any further. She reports continuing to feel nauseous with dry heaves. RV the patient's workup, labs, CT imaging without significant abnormal findings. Agree to give the patient 1 dose of Ativan we will discharge the patient with Zofran ODT and Phenergan suppositories. <Jurgen Botello - Last Filed: 03/11/23 18:28> Time: 18:26 <Jurgen Botello - Last Filed: 03/11/23 18:28> Medications Administered Discontinued Medications Generic Name Dose Route Start Last Admin Trade Name Freq PRN Reason Stop Dose Admin Metoclopramide HCl 10 mg 03/11/23 16:29 03/11/23 16:57 Metoclopramide Hcl 10 Mg/2 Ml Vial IVPUSH 03/11/23 16:30 10 mg ONCE ONE Administration Morphine Sulfate 4 mg 03/11/23 13:34 03/11/23 14:10 Morphine Sulfate 4 Mg/Ml Cartridge IVPUSH 03/11/23 13:35 4 mg ONCE ONE Administration Protocol Ondansetron HCl 4 mg 03/11/23 13:34 03/11/23 14:10 Ondansetron Hcl 4 Mg/2 Ml Vial IVPUSH 03/11/23 13:35 4 mg ONCE ONE Administration <TEODORA Pablo - Last Filed: 03/11/23 16:25> Medications Administered Discontinued Medications Generic Name Dose Route Start Last Admin Trade Name Freq PRN Reason Stop Dose Admin Metoclopramide HCl 10 mg 03/11/23 16:29 03/11/23 16:57 Metoclopramide Hcl 10 Mg/2 Ml Vial IVPUSH 03/11/23 16:30 10 mg ONCE ONE Administration Morphine Sulfate 4 mg 03/11/23 13:34 03/11/23 14:10 Morphine Sulfate 4 Mg/Ml Cartridge IVPUSH 03/11/23 13:35 4 mg ONCE ONE Administration Protocol Ondansetron HCl 4 mg 03/11/23 13:34 03/11/23 14:10 Ondansetron Hcl 4 Mg/2 Ml Vial IVPUSH 03/11/23 13:35 4 mg ONCE ONE Administration <Jurgen Botello - Last Filed: 03/11/23 18:28> Medical Decision Making Medical Decision Making [facility] Narrative: 67 yo female presenting with N/V/D and diffuse abd pain since last night after eating at [employer]. with recent similar symptoms. Labs unremarkable. No focal tenderness on examination and abd soft. CT with some gaseous distnetion of the stomach but no obstruction. Tolerating PO here. Stable for dc home, most likely gastroenteritis. she will f/u with her bariatric surgeon at [facility]. <TEODORA Pablo - Last Filed: 03/11/23 16:25> Differential Diagnosis Differential Diagnoses: The differential diagnosis associated with the presentation includes <TEODORA Pablo - Last Filed: 03/11/23 16:25> SBO, diverticulitis, colitis, dysfunctional lap band, gastroenteritis <TEODORA Pablo - Last Filed: 03/11/23 16:25> Lab Data [facility] Lab Attestation statement: I reviewed the patient's lab results. <TEODORA Pablo - Last Filed: 03/11/23 16:25> Result Diagrams: 03/11/23 13:56 03/11/23 13:56 <TEODORA Pablo - Last Filed: 03/11/23 16:25> Labs: Lab Results 03/11/23 03/11/23 Range/Units 13:56 13:56 WBC 10.4 (4.8-10.8) X10*3/uL RBC 5.15 (4.20-5.50) X10*6/uL Hgb 14.8 (12.0-16.0) g/dl Hct 44.4 (37.0-47.0) % MCV 86.2 (80.0-98.0) fL MCH 28.7 (27.0-33.0) pg MCHC 33.3 (31.0-35.0) g/dl RDW 13.2 (11.0-16.0) % Plt Count 233 (160-400) X10*3/uL MPV 10.4 (9.4-12.3) fL Immature Gran % (Auto) 0.2 (0.0-0.4) % Neut % (Auto) 90.1 H (45-73) % Lymph % (Auto) 3.4 L (20-40) % [place] % (Auto) 6.1 (2-11) % Eos % (Auto) 0.0 (0-4) % Baso % (Auto) 0.2 (0-2) % Lymph # (Auto) 0.4 L (1.2-4.9) X10*3/uL [place] # (Auto) 0.6 (0.1-1.2) X10*3/uL Eos # (Auto) 0.0 (0.0-0.4) X10*3/uL Baso # (Auto) 0.0 (0.0-0.2) X10*3/uL Abs Immat Gran (auto) 0.02 (0.00-0.03) X10*3/uL Absolute Neuts (auto) 9.3 H (2.0-8.3) x10*3/uL Absolute Nucleated RBC 0.000 (0.0-0.012) X10*3/uL Nucleated RBC % (auto) 0.0 (0.0-0.2) /100WBC Smear Tech's Comments VERIFIED Sodium 142 (135-145) mmol/L Potassium 3.3 (3.3-5.1) mmol/L Chloride 108 (96-108) mmol/L Carbon Dioxide 23 (22-29) mmol/L Anion Gap 14 (12-20) BUN 15 (9-16) mg/dL Creatinine 0.63 (0.5-1.4) mg/dL Estim Creat Clear Calc 125.5 Estimated GFR > 60 Random Glucose 185 H (60-115) mg/dL Calcium 8.4 D (8.4-10.2) mg/dL Magnesium 1.9 (1.6-2.6) mg/dL Total Bilirubin 1.9 H (0.0-1.0) mg/dL Direct Bilirubin 0.4 (0.0-0.5) mg/dL AST 14 (5-31) U/L ALT 17 (0-31) U/L Alkaline Phosphatase 93 (39-117) U/L Total Protein 6.3 L (6.5-8.0) g/dL Albumin 3.9 (3.5-5.0) g/dL Lipase 8 (8-78) U/L <TEODORA Pablo - Last Filed: 03/11/23 16:25> Lab Results 03/11/23 03/11/23 Range/Units 13:56 13:56 WBC 10.4 (4.8-10.8) X10*3/uL RBC 5.15 (4.20-5.50) X10*6/uL Hgb 14.8 (12.0-16.0) g/dl Hct 44.4 (37.0-47.0) % MCV 86.2 (80.0-98.0) fL MCH 28.7 (27.0-33.0) pg MCHC 33.3 (31.0-35.0) g/dl RDW 13.2 (11.0-16.0) % Plt Count 233 (160-400) X10*3/uL MPV 10.4 (9.4-12.3) fL Immature Gran % (Auto) 0.2 (0.0-0.4) % Neut % (Auto) 90.1 H (45-73) % Lymph % (Auto) 3.4 L (20-40) % [place] % (Auto) 6.1 (2-11) % Eos % (Auto) 0.0 (0-4) % Baso % (Auto) 0.2 (0-2) % Lymph # (Auto) 0.4 L (1.2-4.9) X10*3/uL [place] # (Auto) 0.6 (0.1-1.2) X10*3/uL Eos # (Auto) 0.0 (0.0-0.4) X10*3/uL Baso # (Auto) 0.0 (0.0-0.2) X10*3/uL Abs Immat Gran (auto) 0.02 (0.00-0.03) X10*3/uL Absolute Neuts (auto) 9.3 H (2.0-8.3) x10*3/uL Absolute Nucleated RBC 0.000 (0.0-0.012) X10*3/uL Nucleated RBC % (auto) 0.0 (0.0-0.2) /100WBC Smear Tech's Comments VERIFIED Sodium 142 (135-145) mmol/L Potassium 3.3 (3.3-5.1) mmol/L Chloride 108 (96-108) mmol/L Carbon Dioxide 23 (22-29) mmol/L Anion Gap 14 (12-20) BUN 15 (9-16) mg/dL Creatinine 0.63 (0.5-1.4) mg/dL Estim Creat Clear Calc 125.5 Estimated GFR > 60 Random Glucose 185 H (60-115) mg/dL Calcium 8.4 D (8.4-10.2) mg/dL Magnesium 1.9 (1.6-2.6) mg/dL Total Bilirubin 1.9 H (0.0-1.0) mg/dL Direct Bilirubin 0.4 (0.0-0.5) mg/dL AST 14 (5-31) U/L ALT 17 (0-31) U/L Alkaline Phosphatase 93 (39-117) U/L Total Protein 6.3 L (6.5-8.0) g/dL Albumin 3.9 (3.5-5.0) g/dL Lipase 8 (8-78) U/L <Jurgen Botello - Last Filed: 03/11/23 18:28> Independent Interpretation I performed an independent interpretation of an: CT Scan <TEODORA Pablo - Last Filed: 03/11/23 16:25> Interpretation: gaseous distention of the abd, no SBO, no GOO. agree w/ radiology read <TEODORA Pablo - Last Filed: 03/11/23 16:25> Radiology Impression Discussion of test interpretation with radiology: I have reviewed the radiologist's reading. <TEODORA Pablo - Last Filed: 03/11/23 16:25> Radiologist Impression: EXAMINATION: CT ABDOMEN AND PELVIS WITHOUT CONTRAST? CLINICAL INFORMATION: Nausea, vomiting, diarrhea? COMPARISON: CT abdomen and pelvis with oral and IV contrast 04/24/2022? TECHNIQUE: Multidetector volumetric imaging was performed from the superior aspect of the liver through the pubic symphysis. No oral or IV contrast. Sagittal and coronal reformatted images were obtained on the technologist's workstation.? This CT examination was performed using dose optimization techniques as appropriate, variously including the following: *Automated exposure control *Adjustment of mA and/or kV according to patient size (this includes techniques or standardized protocols for targeted exams where dose is matched to indication/reason for exam; i.e. extremities or head) *Use of iterative reconstruction technique DLP: 1433 mGy-cm FINDINGS: LUNG BASES: Lung bases are unremarkable. Mild cardiomegaly. No pericardial effusion. Mitral annulus calcification again seen.? LIVER, GALLBLADDER, AND BILIARY TREE: There is mild hepatomegaly similar to prior exam. The liver parenchyma is homogeneous. No focal parenchymal lesion. There is been prior cholecystectomy. No intrahepatic or extrahepatic ductal dilatation. PANCREAS: Unremarkable.? SPLEEN: Unremarkable.? ADRENAL GLANDS: Unremarkable.? KIDNEYS AND URETERS: No hydronephrosis, hydroureter, calculi, or perinephric stranding. There is a stable parapelvic cyst interpolar left kidney approximately 2 cm. No additional imaging follow-up recommended.? BLADDER: Unremarkable.? GASTROINTESTINAL TRACT: Gastric lap band present. There is gaseous and fluid-filled distention stomach. No wall thickening. No small or large bowel obstruction or focal inflammatory changes in bowel or mesentery. Appendix not well visualized. No inflammatory changes around cecum or terminal ileum.. Extensive diverticulosis left and sigmoid colon. No diverticulitis. No ascites or inflammatory changes. No pneumatosis or free air.? ABDOMINAL WALL: No significant hernia is appreciated.? LYMPH NODES: No lymphadenopathy. VASCULAR: Unremarkable. PELVIC VISCERA: Unremarkable.? OSSEOUS STRUCTURES: No acute bony abnormality.? CT/CT abdomen pelvis wo IV con IMPRESSION: -Distended stomach, gastric lap again. No small or large bowel obstruction. -No focal inflammatory changes. No ascites or free air. -Prior cholecystectomy. No ductal dilatation. -No hydronephrosis or perinephric stranding. ? <TEODORA Pablo - Last Filed: 03/11/23 16:25> External Record Review External record reviewed: Outpatient record, Prior outpatient labs and Prior outpatient radiology <TEODORA Pablo - Last Filed: 03/11/23 16:25> Prescription Management I considered prescription management with: Pain Medication and Antibiotic <TEODORA Pablo - Last Filed: 03/11/23 16:25> Chronic Conditions Patient?s care impacted by: Other (morbidly obesity) <TEODORA Pablo - Last Filed: 03/11/23 16:25> Critical Care Time Critical Care Time Critical Care Time: No <TEODORA Pablo - Last Filed: 03/11/23 16:25> Discharge Plan Discharge Clinical Impression: Gastroenteritis <TEODORA Pablo - Last Filed: 03/11/23 16:25> Patient Disposition: Home, Self-Care <TEODORA Pablo - Last Filed: 03/11/23 16:25> Instructions: Gastroenteritis (DC) <TEODORA Pablo - Last Filed: 03/11/23 16:25> Additional Instructions: You lab workup today was unremarkable. Your urine test was negative for infection. You most likely have a viral GI bug also known as gastroenteritis. Treatment is supportive care, symptoms usually resolve on their own in 48-72 hours. Recommend rest and plenty of oral hydration. Stick to a bland diet like soup and toast while you are not feeling well. Take the prescribed medication as needed for nausea. Recommend over the counter Pepto Bismol or Imodium for upset stomach and diarrhea. Follow up with your doctor and your bariatric surgeon. If you develop new or worsening symptoms call 911 or come back to the ER for further evaluation. CT/CT abdomen pelvis wo IV con IMPRESSION: -Distended stomach, gastric lap again. No small or large bowel obstruction. -No focal inflammatory changes. No ascites or free air. -Prior cholecystectomy. No ductal dilatation. -No hydronephrosis or perinephric stranding. <TEODORA Pablo - Last Filed: 03/11/23 16:25> Prescriptions: New ondansetron 4 mg tablet,disintegrating 4 mg PO Q8H PRN (Reason: nausea and vomiting) Qty: 10 0RF promethazine 25 mg suppository 25 mg SD Q6H PRN (Reason: nausea and vomiting) Qty: 12 0RF No Action cholecalciferol (vitamin D3) 25 mcg (1,000 unit) capsule 25 mcg PO DAILY Qty: 30 0RF multivitamin Tablet 1 tab PO DAILY Qty: 30 0RF omega-3 fatty acids 1,250 mg capsule 1,250 mg PO DAILY Qty: 30 0RF amiodarone 200 mg tablet See Rx Instructions PO .COMPLEX Qty: 100 4RF Rx Instructions: Take 2 tablets twice a day x 14 days then 1 tablet daily. orally; valsartan 160 mg tablet 160 mg PO DAILY Qty: 60 3RF metoprolol succinate [Toprol XL] 50 mg tablet extended release 24 hr 50 mg PO DAILY 90 Days Qty: 90 3RF furosemide [Lasix] 40 mg tablet 40 mg PO DAILY 90 Days Qty: 90 3RF budesonide-formoterol [Symbicort] 160-4.5 mcg/actuation HFA aerosol inhaler 2 puff inhalation BID albuterol sulfate [ProAir HFA] 90 mcg/actuation HFA aerosol inhaler 2 puff inhalation Q4-6H PRN (Reason: shortness of breath or wheezing) 30 Days Qty: 8.5 3RF paroxetine HCl 30 mg tablet 45 mg PO DAILY mecobalamin (vitamin B12) 5,000 mcg tablet,disintegrating 5,000 mcg PO MOWEFR@1000 rosuvastatin 10 mg tablet 10 mg PO BEDTIME Eliquis 5 mg tablet 5 mg PO BID 90 Days Qty: 180 3RF omeprazole 20 mg capsule,delayed release(DR/EC) 20 mg PO DAILY@0630 <TEODORA Pablo - Last Filed: 03/11/23 16:25>
[2023-03-11] MEDS: Metoclopramide HCl 10 MG/2 ML VIAL IVPUSH (16:57)
--- NOTE | 2023-03-11 16:57 | PC.NURSE ---
PO challenge attempted, pt with worsening nausea, dry heaves. Medicated as charted
[2023-03-11 16:58] VITALS: BP 126/61; PULSE 88; RESP 20; TEMP 36.5; O2SAT 94
[2023-03-11 16:59] VITALS: O2SAT 97
[2023-03-11] MEDS: LORazepam 2 MG/ML VIAL 1 MG IVPUSH (19:09)
== END 2023-03-11 19:40 | disposition home or self-care (01) ==
PROVIDERS: Physician Assistant; Emergency Provider Emergency Medicine
DX: K52.9 Noninfective gastroenteritis and colitis, unspecified (principal); R11.2 Nausea with vomiting, unspecified; I48.91 Unspecified atrial fibrillation; Z98.84 Bariatric surgery status; Z79.899 Other long term (current) drug therapy; Z87.891 Personal history of nicotine dependence
CPT/HCPCS: 36415; 74176; 80048; 80076; 83690; 83735; 85025; 96374; 96375; 99284; J2060; J2270; J2405; J2765

== ENCOUNTER 2023-04-02 00:12 | Inpatient (IN) | payer MEDICARE, OTHER, SELFPAY ==
[2023-04-02] VITALS (13 sets, daily range): BP systolic 110–157; BP diastolic 64–102; PULSE 50–130; RESP 12–24; TEMP 36.1–37; O2SAT 95–98; BMI 56.7
--- NOTE | 2023-04-02 | ECG_ITS ---
Test Reason : s/p cardioversion Blood Pressure : / mmHG Vent. Rate : 052 BPM Atrial Rate : 052 BPM P-R Int : 192 ms QRS Dur : 088 ms QT Int : 478 ms P-R-T Axes : 077 -10 098 degrees QTc Int : 444 ms Sinus bradycardia Minimal voltage criteria for LVH, may be normal variant ( R in aVL ) Nonspecific T wave abnormality Abnormal ECG When compared with ECG of 02-APR-2023 00:15, Sinus rhythm has replaced Atrial fibrillation Vent. rate has decreased BY 62 BPM Criteria for Septal infarct are no longer Present Criteria for Inferior infarct are no longer Present Referred By: Jaime Clifford Electronically Signed By:Jaime Clifford
--- NOTE | ~2023-04-02 | XR_ITS ---
EXAMINATION: XR CHEST CLINICAL INFORMATION: Palpitations COMPARISON: 12.28.2022 TECHNIQUE: Frontal view of the chest was obtained. FINDINGS: No significant abnormality is noted involving the heart, lungs, mediastinum, bony thorax or soft tissues. XR/XR chest 1V IMPRESSION: Unremarkable examination.
--- NOTE | 2023-04-02 00:15 | ECG_ITS ---
Test Reason : SOB Blood Pressure : / mmHG Vent. Rate : 114 BPM Atrial Rate : 000 BPM P-R Int : 000 ms QRS Dur : 076 ms QT Int : 280 ms P-R-T Axes : 000 -21 149 degrees QTc Int : 385 ms Atrial fibrillation with rapid ventricular response Septal infarct , age undetermined Inferior infarct , age undetermined Abnormal ECG When compared with ECG of 30-DEC-2022 14:56, Atrial fibrillation has replaced Sinus rhythm Vent. rate has increased BY 50 BPM Septal infarct is now Present Inferior infarct is now Present Referred By: Generic ED Physician Electronically Signed By:Jaime Clifford
[2023-04-02 01:31] LABS: Basophils Percent Auto 0.4 % (0-2); Eosinophils Absolute Auto 0.1 X10*3/uL (0.0-0.4); Eosinophils Percent Auto 1.5 % (0-4); Hematocrit 43.1 % (37.0-47.0); Hemoglobin 14.7 g/dl (12.0-16.0); Imm Gran Abs Auto 0.02 X10*3/uL (0.00-0.03); Imm Gran Pct Auto 0.3 % (0.0-0.4); Lymphocytes Absolute Auto 2.3 X10*3/uL (1.2-4.9); MANUAL DIFF FLAG NO; Mean Corpuscular HGB Conc 34.1 g/dl (31.0-35.0); Mean Corpuscular Hemoglobin 29.2 pg (27.0-33.0); Mean Corpuscular Volume 85.7 fL (80.0-98.0); Mean Platelet Volume 10.5 fL (9.4-12.3); Monocytes Absolute Auto 0.7 X10*3/uL (0.1-1.2); Monocytes Percent Auto 9.3 % (2-11); Neutrophils Absolute Auto 4.7 x10*3/uL (2.0-8.3); Neutrophils Percent Auto 59.5 % (45-73); Platelet Count 227 X10*3/uL (160-400); Red Blood Count 5.03 X10*6/uL (4.20-5.50); White Blood Count 7.9 X10*3/uL (4.8-10.8)
[2023-04-02 01:38] LABS: Prothrombin Time 11.5 SEC (10.0-13.1)
--- NOTE | 2023-04-02 01:38 | ED.ARRPALP ---
HPI - Arrhythmia/Palpitations General Chief Complaint: Arrhythmia/Palpitations Stated Complaint: ? Afib Time Seen by Provider: 04/02/23 01:38 Source: patient and family Mode of arrival: ambulatory Limitations: no limitations History of Present Illness HPI narrative: 67-year-old female who presents emergency department for evaluation of diaphoresis, urinary frequency and atrial fibrillation. The patient states that she had cataract surgery yesterday and there were no complications. She states that today at around 22:30 hours she developed urinary frequency. She then had diaphoresis. She did the left fluttering sensation in her chest but did not have any chest pain, neck pain jaw pain, arm pain or back pain. She took her heart rate and it was 126 beats per minute. She then did an EKG with her watch which told her she was in atrial fibrillation. The patient then came to the emergency department for evaluation. Patient has a history of atrial fibrillation which started in July of 2022 after she had a COVID infection. She states that she has been cardioverted 3 times in the past. In reviewing her cardiology note she was on flecainide and this was discontinued and she was placed on amiodarone. She continued to have breakthrough atrial fibrillation was referred to an developer support engineer who discontinued her amiodarone and started her on sotalol. Related Data Home Medications Medication Instructions Recorded Confirmed paroxetine HCl 30 mg tablet 45 mg PO DAILY 10/01/20 01/19/23 mecobalamin (vitamin B12) 5,000 5,000 mcg PO MOWEFR@1000 08/06/22 01/19/23 mcg disintegrating tablet rosuvastatin 10 mg tablet 10 mg PO BEDTIME 08/06/22 01/19/23 omeprazole 20 mg capsule,delayed 20 mg PO DAILY@0630 10/14/22 01/19/23 release Previous Rx's Medication Instructions Recorded cholecalciferol (vitamin D3) 25 25 mcg PO DAILY #30 caps 09/17/20 mcg (1,000 unit) capsule multivitamin 1 tab PO DAILY #30 tabs 09/17/20 omega-3 fatty acids 1,250 mg 1,250 mg PO DAILY #30 caps 09/17/20 capsule albuterol sulfate 90 mcg/actuation 2 puff inhalation Q4-6H PRN 10/29/21 aerosol inhaler (ProAir HFA) shortness of breath or wheezing 30 days #8.5 grams apixaban 5 mg tablet (Eliquis) 5 mg PO BID 90 days #180 tabs 09/03/22 amiodarone 200 mg tablet See Rx Instructions PO .COMPLEX 12/31/22 #100 tabs valsartan 160 mg tablet 160 mg PO DAILY #60 tabs 01/26/23 metoprolol succinate 50 mg 50 mg PO DAILY 90 days #90 tabs 02/09/23 tablet,extended release 24 hr (Toprol XL) furosemide 40 mg tablet (Lasix) 40 mg PO DAILY 90 days #90 tabs 02/12/23 ondansetron 4 mg disintegrating 4 mg PO Q8H PRN nausea and 03/11/23 tablet vomiting #10 tabs promethazine 25 mg rectal 25 mg [place] Q6H PRN nausea and 03/11/23 suppository vomiting #12 ea budesonide-formoterol HFA 160 2 puff PO Q12H #10.2 ea 03/27/23 mcg-4.5 mcg/actuation aerosol inhaler (Symbicort) Allergies Allergy/AdvReac Type Severity Reaction Status Date / Time adhesive tape [ADHESIVE TAPE] Allergy Intermediate BLISTERS Verified 01/22/23 14:07 Review of Systems Review of Systems: Yes all other systems are reviewed and are negative [facility] Past Medical History [facility] Narrative: Social history: She lives with her who is here in the emergency department with her. She denies tobacco, alcohol and drug use. Medical History Asthma exacerbation Bronchial asthma Bronchitis History of cardioversion HTN (hypertension) MDD (major depressive disorder) Morbid obesity JIMBO on CPAP PAF (paroxysmal atrial fibrillation) Post covid-19 condition, unspecified Surgical History Anal fistula H/O colonoscopy H/O umbilical hernia repair History of cholecystectomy History of hysterectomy for cancer Hx of laparoscopic gastric banding Social History Social History Household Members: Spouse Housing: House Do you presently have visiting nurse or other home services: No Alcohol intake: current Alcohol intake frequency: does not drink Patient Tobacco Use Status: Former Tobacco user Quit Date: 1992 Tobacco use type: Cigarette Years Smoked: 25 +/- Second Hand Smoke Exposure: No Advance Directives: Yes Advance Directives on File: Yes Advance Directives Date on File: 12/25/22 service: No Current occupational status: unemployed Physical Exam Vital Signs: Vital Signs: Last Vital Signs Temp 98.2 F 04/02/23 01:28 Pulse 124 H 04/02/23 01:28 Resp 17 04/02/23 01:28 BP 157/77 H 04/02/23 01:28 Pulse Ox 97 04/02/23 01:28 O2 Del Method Room Air 04/02/23 01:28 BMI result Body Mass Index 56.7 Const: Other: Awake, alert, female patient, pleasant, cooperative in no distress. Answers all questions appropriately elevated BMI 56.7 HEENT: Head: Yes normal to inspection, Yes normocephalic and Yes atraumatic Ears: external ears normal General nose exam: Normal external nose present Face and sinus: Yes normal facial exam Mouth: Normal oral and palatal mucosa present Throat: Yes posterior oropharynx normal Eyes: General: appearance normal, both eyes and all related structures Pupils: Equal, round and reactive pupils present Neck: Neck: Yes normal visual inspection, Yes no lymphadenopathy, Yes trachea midline and Yes supple Chest: Chest palpation & inspection: normal inspection of the chest and normal palpation of entire chest wall Resp: Effort & Inspection: normal respiratory effort and able to speak in complete sentences Auscultation: clear to auscultation bilaterally Cardio: Rate: tachycardic Rhythm: abnormal rhythm irregularly irregular Heart sounds: S1 normal heart sound present, S2 normal heart sound present and no murmurs GI: Inspection: Yes normal to inspection Palpation (GI): Soft to palpation, nontender and no guarding Auscultation: normal bowel sounds : General: Yes no CVA tenderness Back/Spine/Pelvis: Back: no CVA tenderness Skin: General skin exam: no rashes or lesions noted Neuro: Cranial nerves: Yes CN's II-XII intact bilaterally and Yes Equal, round and reactive pupils present Cognition (Neuro): normal cognition Motor exam (neuro): 5/5 motor strength present throughout Extrem: Other: 1+ pitting edema, bilaterally symmetric Psych: Appearance: grossly normal Speech and movement: Normal speech and movement present Affect: normal affect Attitude: cooperative Thought process: Normal thought process present Thought content: Normal thought content present Medications Administered Discontinued Medications Generic Name Dose Route Start Last Admin Trade Name Freq PRN Reason Stop Dose Admin Diltiazem HCl 10 mg 04/02/23 01:56 04/02/23 02:08 Diltiazem Hcl 50 Mg/10 Ml Vial IVPUSH 04/02/23 01:57 10 mg STAT STA Administration Medical Decision Making Medical Decision Making [facility] Narrative: 67-year-old female with a history of paroxysmal atrial fibrillation who presents emergency department for evaluation of onset of urinary frequency, diaphoresis, flutter chest sensation which began at 22:30 hours. Patient's watch diagnosed her with atrial fibrillation. On presentation to the emergency department her 12 EKG was consistent with atrial fibrillation with a ventricular rate of 114. Patient's monitor revealed heart rate 100-140 beats per minute. I ordered a laboratory evaluation includes CBC, CMP, troponin, BNP, 12 EKG. 0221: My interpretation patient's laboratory evaluation as follows: CBC was normal. CMP revealed an elevated glucose of 159. High sensitive troponin I was 3, repeat due at 04:24 hours. BNP elevated 165. Chest x-ray revealed no acute disease 0244: I did discuss the patient's presentation over tiger text with the covering machining technician Dr. Clifford. He recommended that the patient be admitted to the hospital service, kept NPO for possible cardioversion today. I did discuss the patient's present over tiger text with the covering hospitalist, Dr. Conti and the patient will be admitted for further management. Differential Diagnosis Differential diagnosis includes was not limited to paroxysmal atrial fibrillation, myocardial infarction, electrolyte abnormalities, anemia Admission/Observation Consideration of admission/observation: Escalation of care including admission/observation considered Consult Healthcare Provider Management of the patient was discussed with: Hospitalist (Dr. Conti) and Fabric Normalizer (Dr. Clifford) Lab Data [facility] Lab Attestation statement: I reviewed the patient's lab results. 04/02/23 01:24 04/02/23 01:24 Labs: Lab Results 04/02/23 04/02/23 04/02/23 Range/Units 01:24 01:24 01:24 WBC 7.9 (4.8-10.8) X10*3/uL RBC 5.03 (4.20-5.50) X10*6/uL Hgb 14.7 (12.0-16.0) g/dl Hct 43.1 (37.0-47.0) % MCV 85.7 (80.0-98.0) fL MCH 29.2 (27.0-33.0) pg MCHC 34.1 (31.0-35.0) g/dl RDW 13.0 (11.0-16.0) % Plt Count 227 (160-400) X10*3/uL MPV 10.5 (9.4-12.3) fL Immature Gran % (Auto) 0.3 (0.0-0.4) % Neut % (Auto) 59.5 (45-73) % Lymph % (Auto) 29.0 (20-40) % [place] % (Auto) 9.3 (2-11) % Eos % (Auto) 1.5 (0-4) % Baso % (Auto) 0.4 (0-2) % Lymph # (Auto) 2.3 (1.2-4.9) X10*3/uL [place] # (Auto) 0.7 (0.1-1.2) X10*3/uL Eos # (Auto) 0.1 (0.0-0.4) X10*3/uL Baso # (Auto) 0.0 (0.0-0.2) X10*3/uL Abs Immat Gran (auto) 0.02 (0.00-0.03) X10*3/uL Absolute Neuts (auto) 4.7 (2.0-8.3) x10*3/uL Absolute Nucleated RBC 0.000 (0.0-0.012) X10*3/uL Nucleated RBC % (auto) 0.0 (0.0-0.2) /100WBC PT 11.5 (10.0-13.1) SEC INR 1.0 (0.9-1.1) Sodium 144 (135-145) mmol/L Potassium 3.6 (3.3-5.1) mmol/L Chloride 109 H (96-108) mmol/L Carbon Dioxide 25 (22-29) mmol/L Anion Gap 14 (12-20) BUN 15 (9-16) mg/dL Creatinine 0.79 (0.5-1.4) mg/dL Estim Creat Clear Calc 96.2 Estimated GFR > 60 Random Glucose 159 H (60-115) mg/dL Calcium 9.2 D (8.4-10.2) mg/dL Total Bilirubin 1.1 H (0.0-1.0) mg/dL AST 17 (5-31) U/L ALT 22 (0-31) U/L Alkaline Phosphatase 111 (39-117) U/L Troponin I High Sens (<3.5-17.0) ng/L B-Natriuretic Peptide (<100) pg/mL Total Protein 6.3 L (6.5-8.0) g/dL Albumin 3.8 (3.5-5.0) g/dL 04/02/23 04/02/23 Range/Units 01:24 01:24 WBC (4.8-10.8) X10*3/uL RBC (4.20-5.50) X10*6/uL Hgb (12.0-16.0) g/dl Hct (37.0-47.0) % MCV (80.0-98.0) fL MCH (27.0-33.0) pg MCHC (31.0-35.0) g/dl RDW (11.0-16.0) % Plt Count (160-400) X10*3/uL MPV (9.4-12.3) fL Immature Gran % (Auto) (0.0-0.4) % Neut % (Auto) (45-73) % Lymph % (Auto) (20-40) % [place] % (Auto) (2-11) % Eos % (Auto) (0-4) % Baso % (Auto) (0-2) % Lymph # (Auto) (1.2-4.9) X10*3/uL [place] # (Auto) (0.1-1.2) X10*3/uL Eos # (Auto) (0.0-0.4) X10*3/uL Baso # (Auto) (0.0-0.2) X10*3/uL Abs Immat Gran (auto) (0.00-0.03) X10*3/uL Absolute Neuts (auto) (2.0-8.3) x10*3/uL Absolute Nucleated RBC (0.0-0.012) X10*3/uL Nucleated RBC % (auto) (0.0-0.2) /100WBC PT (10.0-13.1) SEC INR (0.9-1.1) Sodium (135-145) mmol/L Potassium (3.3-5.1) mmol/L Chloride (96-108) mmol/L Carbon Dioxide (22-29) mmol/L Anion Gap (12-20) BUN (9-16) mg/dL Creatinine (0.5-1.4) mg/dL Estim Creat Clear Calc Estimated GFR Random Glucose (60-115) mg/dL Calcium (8.4-10.2) mg/dL Total Bilirubin (0.0-1.0) mg/dL AST (5-31) U/L ALT (0-31) U/L Alkaline Phosphatase (39-117) U/L Troponin I High Sens 3.0 (<3.5-17.0) ng/L B-Natriuretic Peptide 165 H (<100) pg/mL Total Protein (6.5-8.0) g/dL Albumin (3.5-5.0) g/dL Independent Interpretation I performed an independent interpretation of an: EKG Interpretation: My independent interpretation patient's 12 EKG done at 0115 hours is as follows: Atrial fibrillation with a rapid ventricular response of 114, normal QRS and QTC intervals, no ST segment elevation, no ST segment depression, Q-waves in 3 and AVF as well as Q-waves in V1 through V2 consistent with septal infarct and inferior infarct, occasional PVC, nonspecific T-wave abnormalities. Compared to her previous EKG dated 12/30/2022 at that time she was in sinus rhythm, Q-waves in 3 and AVF, V1 and V2 are old. My independent interpretation patient's chest x-ray is as follows: No acute disease, no CHF Radiology Impression Discussion of test interpretation with radiology: I have reviewed the radiologist's reading. Radiologist Impression: R chest 1V IMPRESSION: Unremarkable examination. Dictated By:Jesse Russell MD Independent Historian Clinical information obtained from an independent historian. History obtained from or confirmed by: Spouse Discharge Plan Discharge Prescriptions: No Action cholecalciferol (vitamin D3) 25 mcg (1,000 unit) capsule 25 mcg PO DAILY Qty: 30 0RF multivitamin Tablet 1 tab PO DAILY Qty: 30 0RF omega-3 fatty acids 1,250 mg capsule 1,250 mg PO DAILY Qty: 30 0RF amiodarone 200 mg tablet See Rx Instructions PO .COMPLEX Qty: 100 4RF Rx Instructions: Take 2 tablets twice a day x 14 days then 1 tablet daily. orally; valsartan 160 mg tablet 160 mg PO DAILY Qty: 60 3RF metoprolol succinate [Toprol XL] 50 mg tablet extended release 24 hr 50 mg PO DAILY 90 Days Qty: 90 3RF furosemide [Lasix] 40 mg tablet 40 mg PO DAILY 90 Days Qty: 90 3RF budesonide-formoterol [Symbicort] 160-4.5 mcg/actuation HFA aerosol inhaler 2 puff PO Q12H Qty: 10.2 3RF ondansetron 4 mg tablet,disintegrating 4 mg PO Q8H PRN (Reason: nausea and vomiting) Qty: 10 0RF promethazine 25 mg suppository 25 mg [place] Q6H PRN (Reason: nausea and vomiting) Qty: 12 0RF albuterol sulfate [ProAir HFA] 90 mcg/actuation HFA aerosol inhaler 2 puff inhalation Q4-6H PRN (Reason: shortness of breath or wheezing) 30 Days Qty: 8.5 3RF paroxetine HCl 30 mg tablet 45 mg PO DAILY mecobalamin (vitamin B12) 5,000 mcg tablet,disintegrating 5,000 mcg PO MOWEFR@1000 rosuvastatin 10 mg tablet 10 mg PO BEDTIME Eliquis 5 mg tablet 5 mg PO BID 90 Days Qty: 180 3RF omeprazole 20 mg capsule,delayed release(DR/EC) 20 mg PO DAILY@0630
[2023-04-02 01:45] LABS: Alanine Aminotransferase 22 U/L (0-31); Albumin Level 3.8 g/dL (3.5-5.0); Alkaline Phosphatase 111 U/L (39-117); Anion Gap 14 (12-20); Aspartate Amino Transferase 17 U/L (5-31); Bilirubin Total 1.1 mg/dL (0.0-1.0); Blood Urea Nitrogen 15 mg/dL (9-16); Calcium 9.2 mg/dL (8.4-10.2); Carbon Dioxide 25 mmol/L (22-29); Chloride 109 mmol/L (96-108); Creatinine Clr Calc Pharmacy 96.2; Estimated Glomerular Filt Rate > 60; Glucose Random 159 mg/dL (60-115); Potassium 3.6 mmol/L (3.3-5.1); Sodium 144 mmol/L (135-145); Total Protein 6.3 g/dL (6.5-8.0)
[2023-04-02 01:53] LABS: B Type Natriuretic Peptide 165 pg/mL (<100)
[2023-04-02] MEDS: dilTIAZem HCL 50 MG/10 ML VIAL 10 MG IVPUSH (02:08)
--- NOTE | 2023-04-02 02:50 | MHC.EDTECH ---
PT helped to the restroon. hat placed on toilet to collect urine specimen
--- NOTE | 2023-04-02 06:08 | P.HPHOSP_ITS ---
History of Present Illness Date of Service: 04/02/23 Chief Complaint: AFib 67-year-old female past medical history of heart failure with diastolic dysfunction, hypertension, asthma, COPD, morbid obesity, paroxysmal AFib, status post cardioversion x3, on Eliquis and sotalol, presents to the hospital with complaints of palpitations, diaphoretic, and stating that her Apple watch showing her heart to be in the 110s to 140s and the EKG on her watch indicating AFib. She has also states that for few hours she started developing urinary frequency without burning or urgency. patient otherwise denies any chest pain, no headache or change in vision, no dizziness, no abdominal pain nausea or vomiting, no diarrhea constipation, no urinary symptoms and no lower extremity edema. Denies any recent illness. On arrival to the ED patient found to be in heart rate of 130s in AFib with RVR, blood pressure stable labs reviewed unremarkable, no elevated troponin, BNP of 165, Patient given Cardizem 10 mg IV, case was discussed with Cardiology, plan for cardioversion in a.m. Review of Systems Review of Systems: Yes all other systems are reviewed and are negative [facility] Medical History Asthma exacerbation Bronchial asthma Bronchitis History of cardioversion HTN (hypertension) MDD (major depressive disorder) Morbid obesity JIMBO on CPAP PAF (paroxysmal atrial fibrillation) Post covid-19 condition, unspecified Surgical History Anal fistula H/O colonoscopy H/O umbilical hernia repair History of cholecystectomy History of hysterectomy for cancer Hx of laparoscopic gastric banding Social History Household Members: Spouse Housing: House Do you presently have visiting nurse or other home services: No Alcohol intake: never Patient Tobacco Use Status: Former Tobacco user Quit Date: 1992 Tobacco use type: Cigarette Years Smoked: 25 +/- Smoked in Last 30 Days: No Second Hand Smoke Exposure: No Use of substances other than those prescribed or required for medical reasons: No Any prior treatment program specific to substance use: No Advance Directives: Yes Advance Directives on File: Yes Advance Directives Date on File: 12/25/22 service: No Current occupational status: unemployed Meds Allergies Allergy/AdvReac Type Severity Reaction Status Date / Time adhesive tape [ADHESIVE TAPE] Allergy Intermediate BLISTERS Verified 01/22/23 14:07 Active Medications: Current Medications Acetaminophen (Acetaminophen 325 Mg Tablet) 650 mg PO Q6H PRN PRN Reason: Pain, Mild (Pain Scale 1-3) Ondansetron HCl (Ondansetron Hcl 4 Mg/2 Ml Vial) 4 mg IVPUSH Q8H PRN PRN Reason: Nausea and Vomiting Sodium Chloride (0.9 % Sodium Chloride Flush 3 Ml Syringe) [address] [facility] Home Medications Medication Instructions Recorded Confirmed Last Taken Type paroxetine HCl 30 mg tablet 45 mg PO DAILY 10/01/20 04/02/23 12/28/22 10:00 History mecobalamin (vitamin B12) 5,000 5,000 mcg PO MOWEFR@1000 08/06/22 04/02/23 12/28/22 10:00 History mcg disintegrating tablet rosuvastatin 10 mg tablet 10 mg PO BEDTIME 08/06/22 04/02/23 12/27/22 22:00 History omeprazole 20 mg capsule,delayed 20 mg PO DAILY@0630 10/14/22 04/02/23 12/28/22 10:00 History release Physical Exam Vital Signs and Narrative: Vital Signs: Last Vital Signs Temp 98.1 F 04/02/23 05:21 Pulse 94 04/02/23 05:21 Resp 17 04/02/23 05:21 BP 141/77 H 04/02/23 05:21 Pulse Ox 95 04/02/23 05:21 O2 Del Method Room Air 04/02/23 05:21 BMI result Body Mass Index 56.7 Const: General: cooperative and no acute distress Orientation/co nsciousness: patient oriented x3 Eyes: General: appearance normal, both eyes and all related structures Pupils: Equal, round and reactive pupils present Resp: Effort & Inspection: normal respiratory effort Auscultation: clear to auscultation bilaterally Cardio: Other: heart rate in the 90s on my interview, irregular rhythm Rate: regular rate GI: Palpation (GI): Soft to palpation Auscultation: normal bowel sounds Skin: General skin exam: no rashes or lesions noted Neuro: General: patient oriented x3 Cranial nerves: Yes Equal, round and reactive pupils present Cognition (Neuro): normal cognition Extrem: General: Yes normal to inspection and Yes no pedal edema Results Labs 04/02/23 01:24 04/02/23 01:24 Labs: Laboratory Results - last 24 hr 04/02/23 04/02/23 04/02/23 01:24 01:24 01:24 MCV 85.7 MCH 29.2 MCHC 34.1 RDW 13.0 Plt Count 227 MPV 10.5 Immature Gran % (Auto) 0.3 Neut % (Auto) 59.5 Lymph % (Auto) 29.0 [place] % (Auto) 9.3 Eos % (Auto) 1.5 Baso % (Auto) 0.4 Lymph # (Auto) 2.3 [place] # (Auto) 0.7 Eos # (Auto) 0.1 Baso # (Auto) 0.0 Abs Immat Gran (auto) 0.02 Absolute Neuts (auto) 4.7 Absolute Nucleated RBC 0.000 Nucleated RBC % (auto) 0.0 PT 11.5 INR 1.0 Anion Gap 14 Estim Creat Clear Calc 96.2 Estimated GFR > 60 Random Glucose 159 H Calcium 9.2 D Total Bilirubin 1.1 H AST 17 ALT 22 Alkaline Phosphatase 111 Troponin I High Sens B-Natriuretic Peptide Total Protein 6.3 L Albumin 3.8 04/02/23 04/02/23 04/02/23 01:24 01:24 04:31 MCV MCH MCHC RDW Plt Count MPV Immature Gran % (Auto) Neut % (Auto) Lymph % (Auto) [place] % (Auto) Eos % (Auto) Baso % (Auto) Lymph # (Auto) [place] # (Auto) Eos # (Auto) Baso # (Auto) Abs Immat Gran (auto) Absolute Neuts (auto) Absolute Nucleated RBC Nucleated RBC % (auto) PT INR Anion Gap Estim Creat Clear Calc Estimated GFR Random Glucose Calcium Total Bilirubin AST ALT Alkaline Phosphatase Troponin I High Sens 3.0 4.0 B-Natriuretic Peptide 165 H Total Protein Albumin Imaging Radiologist's Impressions: Impressions Chest X-Ray 04/02/23 01:15 IMPRESSION: Unremarkable examination. Assessment and Plan (1) Atrial fibrillation with rapid ventricular response: Status: Acute Plan 67 yo F with past medical history of AFib, chronic diastolic heart failure, HTN, COPD presents to the hospital comes into the hospital in AFib with RVR # AFib with RVR - patient on sotalol as well as metoprolol and Eliquis, given 1 dose of Cardizem with rate control - Cardiology plan for cardioversion in a.m. - continue Eliquis - admit to telemetry # chronic diastolic heart failure - not in exacerbation - will continue Lasix 40 daily # hypertension - stable - continue valsartan DVT prophylaxis: Eliquis Time Spent With Patient Time: Total time managing care of this patient today ____ minutes. Quality Stroke Does the patient have a stroke diagnosis?: No VTE Prior VTE?: No VTE Risk Level:: Medical - moderate - high VTE Device Contraindication: Treatment Not Indicated VTE Drug Contraindication: N/A - Med Ordered
[2023-04-02 06:18] LABS: Alanine Aminotransferase 20 U/L (0-31); Albumin Level 3.6 g/dL (3.5-5.0); Alkaline Phosphatase 108 U/L (39-117); Anion Gap 14 (12-20); Aspartate Amino Transferase 16 U/L (5-31); Blood Urea Nitrogen 14 mg/dL (9-16); Calcium 9.1 mg/dL (8.4-10.2); Carbon Dioxide 26 mmol/L (22-29); Chloride 108 mmol/L (96-108); Creatinine Clr Calc Pharmacy 108.6; Estimated Glomerular Filt Rate > 60; Glucose Random 132 mg/dL (60-115); Potassium 3.8 mmol/L (3.3-5.1); Sodium 144 mmol/L (135-145)
--- NOTE | 2023-04-02 07:53 | PHA.MEDREC ---
Pharmacy Consult ? Medication Reconciliation Pharmacy has reviewed the medication reconciliation complete by KARYN Stiles. I spoke with patient. Patient reports she is no longer on metoprolol therefore I removed from list. Patient also reported she is on sotalol which was originally missed by RN. Sotalol 240 mg 1/2 tab BID added to home list. Vernell Lockhart, AnalyD
[2023-04-02] MEDS: 0.9 % Sodium Chloride Flush 3 ML SYRINGE IVFLUSH (09:27)
[2023-04-02] MEDS: Cholecalciferol (Vitamin D3) 25 MCG TABLET PO (09:27)
[2023-04-02] MEDS: Furosemide 40 MG TABLET PO (09:27)
[2023-04-02] MEDS: Apixaban 5 MG TABLET PO ×2 (09:27→20:17)
[2023-04-02] MEDS: PARoxetine HCL 30 MG TABLET 45 MG PO (09:27)
--- NOTE | 2023-04-02 09:56 | PC.NURSE ---
Alert and oriented, resp even and unlabored. Changed into hospital bed, purewick in place. Awaiting cardiology consult, offers no complaints. Call scott within reach
[2023-04-02] MEDS: SOTALOL HCL 120 MG PO ×2 (10:32→20:17)
[2023-04-02 10:43] LABS: Appearance Urine Cloudy; Color Urine Yellow; Glucose Urine UA Negative (Negative); Leukocyte Esterase Urine Negative (Negative); Nitrite Urine Positive (Negative); UMIC TRIGGER UACC YES; Urine Blood Negative (Negative); Urine Ketones Negative (Negative); Urine Protein Negative (Neg-Trace)
--- NOTE | 2023-04-02 10:50 | PC.NURSE ---
Pt resting comfortably in hospital bed, respirations even and unlabored.
[2023-04-02 11:00] LABS: Bacteria Urine 4+ (None Seen); Calcium Oxalate Crystals Urine Present; Hyaline Casts Urine 0-2 /LPF (0-2); RBC Urine 0-2 /HPF (0-2); Squamous Epithelial Cell Urine 0-2 /HPF (0-2); UACC Culture Trigger YES
--- NOTE | 2023-04-02 11:49 | MHC.CM.PN ---
Attempted to meet with patient in regards to discharge planning. Patient currently sleeping. No family present. Will attempt to meet with patient again. Continue to monitor for d/c needs.
--- NOTE | 2023-04-02 12:17 | P.CONCA_ITS ---
History of Present Illness History of Present Illness Date of Service: 04/02/23 Requesting physician: Eber Carballo Chief complaint: a fib w rvr Narrative: Pleasant 67-year-old female who follows up with me in the office for paroxysmal atrial fibrillation. She has had previous episodes of symptomatic atrial fibrillation She was started on amiodarone at 1 stage with good rhythm control and was referred to electrophysiology for ablation. My inclination was not to leave her on amiodarone long-term given her relatively younger age. She was changed to sotalol by the electrophysiology team and has been taking sotalol 120 mg twice a day. This was started 2-3 months ago. She is now presenting with sudden-onset palpitations and is back in atrial fibrillation. She said she had cataract surgery sent leak and was recovered from that. She did not have any other issues including no shortness of breath, chest discomfort or any fevers or chills. She has been taking sotalol regularly. Her apixaban was not held before the cataract surgery and she has been taking it regularly over the last couple of months. She has palpitations and is symptomatic from atrial fibrillation. [facility] Past Medical History Medical History Asthma exacerbation Bronchial asthma Bronchitis History of cardioversion HTN (hypertension) MDD (major depressive disorder) Morbid obesity JIMBO on CPAP PAF (paroxysmal atrial fibrillation) Post covid-19 condition, unspecified Surgical History Surgical History Anal fistula H/O colonoscopy H/O umbilical hernia repair History of cholecystectomy History of hysterectomy for cancer Hx of laparoscopic gastric banding Social History Social History Household Members: Spouse Housing: House Do you presently have visiting nurse or other home services: No Alcohol intake: never Patient Tobacco Use Status: Former Tobacco user Quit Date: 1992 Tobacco use type: Cigarette Years Smoked: 25 +/- Smoked in Last 30 Days: No Second Hand Smoke Exposure: No Use of substances other than those prescribed or required for medical reasons: No Any prior treatment program specific to substance use: No Advance Directives: Yes Advance Directives on File: Yes Advance Directives Date on File: 12/25/22 service: No Current occupational status: unemployed Meds Allergies Allergy/AdvReac Type Severity Reaction Status Date / Time adhesive tape [ADHESIVE TAPE] Allergy Intermediate BLISTERS Verified 01/22/23 14:07 Active Medications: Current Medications Acetaminophen (Acetaminophen 325 Mg Tablet) 650 mg PO Q6H PRN PRN Reason: Pain, Mild (Pain Scale 1-3) Albuterol Sulfate (Albuterol Sulfate 90 Mcg 8 Gm Inhaler) 2 puff INHALE Q4H PRN PRN Reason: shortness of breath or wheezing Apixaban (Apixaban 5 Mg Tablet) 5 mg PO BID [facility] Last Admin: 04/02/23 09:27 Dose: 5 mg Atorvastatin Calcium (Atorvastatin Calcium 40 Mg Tablet) 40 mg PO BEDTIME [facility] Fluticasone/Vilanterol (Fluticasone/Vilanterol 200/25 Blst.W.Dev) 1 puff INHALE RDAILY [facility] Last Admin: 04/02/23 08:25 Dose: Not Given Furosemide (Furosemide 40 Mg Tablet) 40 mg PO DAILY [facility]; Protocol Last Admin: 04/02/23 09:27 Dose: 40 mg Omeprazole (Omeprazole 20 Mg Capsule.Dr) 20 mg PO DAILY@0630 [facility] Paroxetine HCl (Paroxetine Hcl 30 Mg Tablet) 45 mg PO DAILY [facility] Last Admin: 04/02/23 09:27 Dose: 45 mg Sodium Chloride (0.9 % Sodium Chloride Flush 3 Ml Syringe) 3 ml IVFLUSH QSHIFT [facility] Last Admin: 04/02/23 09:27 Dose: 3 ml Sotalol HCl (Sotalol Hcl 120 Mg Tablet) 120 mg PO BID [facility] Last Admin: 04/02/23 10:32 Dose: 120 mg Vitamin D (Cholecalciferol (Vitamin D3) 25 Mcg Tablet) 25 mcg PO DAILY [facility] Last Admin: 04/02/23 09:27 Dose: 25 mcg Home Medications Medication Instructions Recorded Confirmed Last Taken Type paroxetine HCl 30 mg tablet 45 mg PO DAILY 10/01/20 04/02/23 12/28/22 10:00 History mecobalamin (vitamin B12) 5,000 5,000 mcg PO MOWEFR@1000 08/06/22 04/02/23 12/28/22 10:00 History mcg disintegrating tablet rosuvastatin 10 mg tablet 10 mg PO BEDTIME 08/06/22 04/02/23 03/31/23 History omeprazole 20 mg capsule,delayed 20 mg PO DAILY@0630 10/14/22 04/02/23 12/28/22 10:00 History release sotalol 240 mg tablet 120 mg PO BID 04/02/23 04/02/23 Unknown History Physical Exam Vital Signs: Vital Signs: Last Vital Signs Temp 98.0 F 04/02/23 09:20 Pulse 103 H 04/02/23 09:20 Resp 14 04/02/23 09:20 BP 127/89 04/02/23 09:20 Pulse Ox 97 04/02/23 09:20 O2 Del Method Room Air 04/02/23 09:20 BMI result Body Mass Index 56.7 GENERAL APPEARANCE: in no acute distress, pleasant. morbidly obese. NECK: no carotid bruit, no jugular venous distention. SKIN: no suspicious lesions, warm and dry. HEART: no murmurs, irregular rate and rhythm. LUNGS: clear to auscultation bilaterally. ABDOMEN: soft, nontender. EXTREMITIES: no edema. PERIPHERAL PULSES: equal. NEUROLOGIC: No gross deficits, AAO X 3 Objective Labs and Meds 04/02/23 01:24 04/02/23 05:37 Lab results: Laboratory Results - last 24 hr 04/02/23 04/02/23 04/02/23 01:24 01:24 01:24 WBC 7.9 RBC 5.03 Hgb 14.7 Hct 43.1 MCV 85.7 MCH 29.2 MCHC 34.1 RDW 13.0 Plt Count 227 MPV 10.5 Immature Gran % (Auto) 0.3 Neut % (Auto) 59.5 Lymph % (Auto) 29.0 [place] % (Auto) 9.3 Eos % (Auto) 1.5 Baso % (Auto) 0.4 Lymph # (Auto) 2.3 [place] # (Auto) 0.7 Eos # (Auto) 0.1 Baso # (Auto) 0.0 Abs Immat Gran (auto) 0.02 Absolute Neuts (auto) 4.7 Absolute Nucleated RBC 0.000 Nucleated RBC % (auto) 0.0 PT 11.5 INR 1.0 Sodium 144 Potassium 3.6 Chloride 109 H Carbon Dioxide 25 Anion Gap 14 BUN 15 Creatinine 0.79 Estim Creat Clear Calc 96.2 Estimated GFR > 60 Random Glucose 159 H Calcium 9.2 D Total Bilirubin 1.1 H AST 17 ALT 22 Alkaline Phosphatase 111 Troponin I High Sens B-Natriuretic Peptide Total Protein 6.3 L Albumin 3.8 Urine Color Urine Appearance Urine pH Ur Specific [place] Urine Protein Urine Glucose (UA) Urine Ketones Urine Blood Urine Nitrite Ur Leukocyte Esterase Urine RBC Urine WBC Ur Squamous Epith Cells Calcium Oxalate Crystal Urine Bacteria Hyaline Casts 04/02/23 04/02/23 04/02/23 01:24 01:24 04:31 WBC RBC Hgb Hct MCV MCH MCHC RDW Plt Count MPV Immature Gran % (Auto) Neut % (Auto) Lymph % (Auto) [place] % (Auto) Eos % (Auto) Baso % (Auto) Lymph # (Auto) [place] # (Auto) Eos # (Auto) Baso # (Auto) Abs Immat Gran (auto) Absolute Neuts (auto) Absolute Nucleated RBC Nucleated RBC % (auto) PT INR Sodium Potassium Chloride Carbon Dioxide Anion Gap BUN Creatinine Estim Creat Clear Calc Estimated GFR Random Glucose Calcium Total Bilirubin AST ALT Alkaline Phosphatase Troponin I High Sens 3.0 4.0 B-Natriuretic Peptide 165 H Total Protein Albumin Urine Color Urine Appearance Urine pH Ur Specific [place] Urine Protein Urine Glucose (UA) Urine Ketones Urine Blood Urine Nitrite Ur Leukocyte Esterase Urine RBC Urine WBC Ur Squamous Epith Cells Calcium Oxalate Crystal Urine Bacteria Hyaline Casts 04/02/23 04/02/23 05:37 10:33 WBC RBC Hgb Hct MCV MCH MCHC RDW Plt Count MPV Immature Gran % (Auto) Neut % (Auto) Lymph % (Auto) [place] % (Auto) Eos % (Auto) Baso % (Auto) Lymph # (Auto) [place] # (Auto) Eos # (Auto) Baso # (Auto) Abs Immat Gran (auto) Absolute Neuts (auto) Absolute Nucleated RBC Nucleated RBC % (auto) PT INR Sodium 144 Potassium 3.8 Chloride 108 Carbon Dioxide 26 Anion Gap 14 BUN 14 Creatinine 0.70 Estim Creat Clear Calc 108.6 Estimated GFR > 60 Random Glucose 132 H Calcium 9.1 Total Bilirubin 1.0 AST 16 ALT 20 Alkaline Phosphatase 108 Troponin I High Sens B-Natriuretic Peptide Total Protein 6.0 L Albumin 3.6 Urine Color Yellow Urine Appearance Cloudy Urine pH 7.0 Ur Specific [place] 1.020 Urine Protein Negative Urine Glucose (UA) Negative Urine Ketones Negative Urine Blood Negative Urine Nitrite Positive H Ur Leukocyte Esterase Negative Urine RBC 0-2 Urine WBC 6-10 H Ur Squamous Epith Cells 0-2 Calcium Oxalate Crystal Present Urine Bacteria 4+ Hyaline Casts 0-2 Imaging Radiologist's impression: Impressions Chest X-Ray 04/02/23 01:15 IMPRESSION: Unremarkable examination. Assessment and Plan (1) Atrial fibrillation with rapid ventricular response: Status: Acute Plan [age] year female who is presenting with palpitations and AFib with RVR. She has known history of paroxysmal atrial fibrillation the past and underwent cardioversion couple of times. She was started on amiodarone initially and was seen by [facility] and was changed to sotalol. She is currently taking 120 mg b.i.d. sotalol. We discussed about cardioversion and she is agreeable. We are going to arrange cardioversion today. She has been taking apixaban without interruption the last 1-2 months. Keep NPO going forward. Post cardioversion will continue sotalol for now. If she has recurrent atrial fibrillation then we will get advice from electrophysiology again. In that case in my opinion sotalol needs to be discontinued and she needs to be put back on amiodarone. Because there is an interaction between sotalol amiodarone I think she will need at least 72 hours without sotalol before we start the amiodarone. Thank you for allowing me to participate in the care of your patient. Please feel free to contact me if you have any questions. Time Spent With Patient Time: Total time managing care of this patient today ____ minutes. Procedures Date of Service Date of Service: 04/02/23
--- NOTE | 2023-04-02 12:56 | HO.ANESPROP2 ---
HPI - Anesthesia Eval Consult details Narrative: 67yo female patient for cardioversion S/p Right cataract surgery 2 days ago. Checked with surgeon, Dr Rivera to proceed with cardioversion. No concerns about dislodgement PMFSH Active Problems Active Problems: All Active Problems (Updated 04/02/23 @ 12:50 by Any Romero MD) COVID-19 (Acute) Chest pain (Acute) Atrial fibrillation (Acute) CHRISTIANSEN (dyspnea on exertion) (Acute) Chronic diastolic heart failure (Acute) Atrial fibrillation, rapid (Acute) Elevated TSH (Acute) Atrial fibrillation with rapid ventricular response (Acute) Bronchitis (Acute) Asthma exacerbation (Acute) MDD (major depressive disorder) (Acute) HTN (hypertension) (Acute) Post covid-19 condition, unspecified (Acute) Morbid obesity (Acute) BMI 56.7 JIMBO on CPAP (Acute) Bronchial asthma (Acute) Recurrent atrial fibrillatio. S/p cardioversion x3. Last 12/2022. On apixaban Past Medical History Medical History Asthma exacerbation Bronchial asthma Bronchitis GERD (gastroesophageal reflux disease) History of cardioversion HTN (hypertension) MDD (major depressive disorder) Morbid obesity JIMBO on CPAP PAF (paroxysmal atrial fibrillation) Post covid-19 condition, unspecified Family History Family history of problems with anesthesia: No Surgical History Surgical History Anal fistula H/O colonoscopy H/O umbilical hernia repair History of cholecystectomy History of hysterectomy for cancer Hx of laparoscopic gastric banding History of Problems with Anesthesia: Yes (See above. Surgery for gall bladder was in the 1980s. No problems with anesthesia since) Social History Social History Household Members: Spouse Housing: House Do you presently have visiting nurse or other home services: No Alcohol intake: never Patient Tobacco Use Status: Former Tobacco user Quit Date: 25 yrs ago Tobacco use type: Cigarette Years Smoked: 25 +/- Second Hand Smoke Exposure: No Advance Directives Date on File: 12/25/22 service: No Current occupational status: unemployed Meds Allergies Allergy/AdvReac Type Severity Reaction Status Date / Time adhesive tape [ADHESIVE TAPE] Allergy Intermediate BLISTERS Verified 04/02/23 12:43 Active Medications: Current Medications Acetaminophen (Acetaminophen 325 Mg Tablet) 650 mg PO Q6H PRN PRN Reason: Pain, Mild (Pain Scale 1-3) Albuterol Sulfate (Albuterol Sulfate 90 Mcg 8 Gm Inhaler) 2 puff INHALE Q4H PRN PRN Reason: shortness of breath or wheezing Apixaban (Apixaban 5 Mg Tablet) 5 mg PO BID [facility] Last Admin: 04/02/23 09:27 Dose: 5 mg Atorvastatin Calcium (Atorvastatin Calcium 40 Mg Tablet) 40 mg PO BEDTIME [facility] Fluticasone/Vilanterol (Fluticasone/Vilanterol 200/25 Blst.W.Dev) 1 puff INHALE RDAILY [facility] Last Admin: 04/02/23 08:25 Dose: Not Given Furosemide (Furosemide 40 Mg Tablet) 40 mg PO DAILY [facility]; Protocol Last Admin: 04/02/23 09:27 Dose: 40 mg Omeprazole (Omeprazole 20 Mg Capsule.Dr) 20 mg PO DAILY@0630 [facility] Paroxetine HCl (Paroxetine Hcl 30 Mg Tablet) 45 mg PO DAILY [facility] Last Admin: 04/02/23 09:27 Dose: 45 mg Sodium Chloride (0.9 % Sodium Chloride Flush 3 Ml Syringe) 3 ml IVFLUSH QSHIFT [facility] Last Admin: 04/02/23 09:27 Dose: 3 ml Sotalol HCl (Sotalol Hcl 120 Mg Tablet) 120 mg PO BID [facility] Last Admin: 04/02/23 10:32 Dose: 120 mg Vitamin D (Cholecalciferol (Vitamin D3) 25 Mcg Tablet) 25 mcg PO DAILY [facility] Last Admin: 04/02/23 09:27 Dose: 25 mcg Home Medications Medication Instructions Recorded Confirmed Last Taken Type paroxetine HCl 30 mg tablet 45 mg PO DAILY 10/01/20 04/02/23 12/28/22 10:00 History mecobalamin (vitamin B12) 5,000 5,000 mcg PO MOWEFR@1000 08/06/22 04/02/23 12/28/22 10:00 History mcg disintegrating tablet rosuvastatin 10 mg tablet 10 mg PO BEDTIME 08/06/22 04/02/23 03/31/23 History omeprazole 20 mg capsule,delayed 20 mg PO DAILY@0630 10/14/22 04/02/23 12/28/22 10:00 History release sotalol 240 mg tablet 120 mg PO BID 04/02/23 04/02/23 Unknown History Exam Exam Date and Time: April 02, 2023 1256 Height,Weight and Vital Signs: Height 5 ft 3 in Weight 145.15 kg Last Vital Signs Temp 98.0 F 04/02/23 09:20 Pulse 103 H 04/02/23 09:20 Resp 14 04/02/23 09:20 BP 127/89 04/02/23 09:20 Pulse Ox 97 04/02/23 09:20 O2 Del Method Room Air 04/02/23 09:20 Vital Signs Temp Pulse Resp BP Pulse Ox O2 Del Method 98.6 F 130 H 24 H 156/102 H 98 Room Air 04/02/23 01:18 04/02/23 01:18 04/02/23 01:18 04/02/23 01:18 04/02/23 01:18 04/02/23 01:18 Pertinent Lab Results Pertinent Lab Results: Laboratory Tests 04/02/23 04/02/23 04/02/23 01:24 01:24 01:24 WBC 7.9 RBC 5.03 Hgb 14.7 Hct 43.1 MCV 85.7 MCH 29.2 MCHC 34.1 RDW 13.0 Plt Count 227 MPV 10.5 Immature Gran % (Auto) 0.3 Neut % (Auto) 59.5 Lymph % (Auto) 29.0 Sac % (Auto) 9.3 Eos % (Auto) 1.5 Baso % (Auto) 0.4 Lymph # (Auto) 2.3 Sac # (Auto) 0.7 Eos # (Auto) 0.1 Baso # (Auto) 0.0 Abs Immat Gran (auto) 0.02 Absolute Neuts (auto) 4.7 Absolute Nucleated RBC 0.000 Nucleated RBC % (auto) 0.0 PT 11.5 INR 1.0 Sodium 144 Potassium 3.6 Chloride 109 H Carbon Dioxide 25 Anion Gap 14 BUN 15 Creatinine 0.79 Estim Creat Clear Calc 96.2 Estimated GFR > 60 Random Glucose 159 H Calcium 9.2 D Total Bilirubin 1.1 H AST 17 ALT 22 Alkaline Phosphatase 111 Troponin I High Sens B-Natriuretic Peptide Total Protein 6.3 L Albumin 3.8 Urine Color Urine Appearance Urine pH Ur Specific [place] Urine Protein Urine Glucose (UA) Urine Ketones Urine Blood Urine Nitrite Ur Leukocyte Esterase Urine RBC Urine WBC Ur Squamous Epith Cells Calcium Oxalate Crystal Urine Bacteria Hyaline Casts 04/02/23 04/02/23 04/02/23 01:24 01:24 04:31 WBC RBC Hgb Hct MCV MCH MCHC RDW Plt Count MPV Immature Gran % (Auto) Neut % (Auto) Lymph % (Auto) Sac % (Auto) Eos % (Auto) Baso % (Auto) Lymph # (Auto) Sac # (Auto) Eos # (Auto) Baso # (Auto) Abs Immat Gran (auto) Absolute Neuts (auto) Absolute Nucleated RBC Nucleated RBC % (auto) PT INR Sodium Potassium Chloride Carbon Dioxide Anion Gap BUN Creatinine Estim Creat Clear Calc Estimated GFR Random Glucose Calcium Total Bilirubin AST ALT Alkaline Phosphatase Troponin I High Sens 3.0 4.0 B-Natriuretic Peptide 165 H Total Protein Albumin Urine Color Urine Appearance Urine pH Ur Specific [place] Urine Protein Urine Glucose (UA) Urine Ketones Urine Blood Urine Nitrite Ur Leukocyte Esterase Urine RBC Urine WBC Ur Squamous Epith Cells Calcium Oxalate Crystal Urine Bacteria Hyaline Casts 04/02/23 04/02/23 05:37 10:33 WBC RBC Hgb Hct MCV MCH MCHC RDW Plt Count MPV Immature Gran % (Auto) Neut % (Auto) Lymph % (Auto) Sac % (Auto) Eos % (Auto) Baso % (Auto) Lymph # (Auto) Sac # (Auto) Eos # (Auto) Baso # (Auto) Abs Immat Gran (auto) Absolute Neuts (auto) Absolute Nucleated RBC Nucleated RBC % (auto) PT INR Sodium 144 Potassium 3.8 Chloride 108 Carbon Dioxide 26 Anion Gap 14 BUN 14 Creatinine 0.70 Estim Creat Clear Calc 108.6 Estimated GFR > 60 Random Glucose 132 H Calcium 9.1 Total Bilirubin 1.0 AST 16 ALT 20 Alkaline Phosphatase 108 Troponin I High Sens B-Natriuretic Peptide Total Protein 6.0 L Albumin 3.6 Urine Color Yellow Urine Appearance Cloudy Urine pH 7.0 Ur Specific [place] 1.020 Urine Protein Negative Urine Glucose (UA) Negative Urine Ketones Negative Urine Blood Negative Urine Nitrite Positive H Ur Leukocyte Esterase Negative Urine RBC 0-2 Urine WBC 6-10 H Ur Squamous Epith Cells 0-2 Calcium Oxalate Crystal Present Urine Bacteria 4+ Hyaline Casts 0-2 Airway Mallampati Class: III TM Dist: >3cm Neck ROM: Full Loose/Missing/Broken Teeth: Yes (2 top front Caps. Some missing teeth) Heart: Irregularly irregular Lungs: Distant BS. CTAB Assessment and Plan Assessment Anesthesia Assessment: Anesthesia Plan Discussed and Chart Reviewed Final Anesthetic Review Family History of Problems with Anesthesia: No History of Problems with Anesthesia: Yes (See above. Surgery for gall bladder was in the 1980s. No problems with anesthesia since) NPO: Yes ASA Class: IV Final Preanesthetic Review: No Changes in Pt Med Stat, Meds/Allgs Chart Reviewed, Consent Obtained/Reviewed and Anes Risks/Benef Reviewed Patient Risk: Intermediate Procedure Risk: Intermediate Assessment/Block/Sedation in SS: Assess/Block/Sedation-SS Anesthetic Plan Anesthetic Plan: GA Disposition: Standard PACU
--- NOTE | 2023-04-02 13:14 | MHC.SHP ---
Pre-Procedural Eval Section A Date of Service: 04/02/23 The patient is an INPATIENT: Yes The History & Physical has been completed within 30 days and I have reviewed it.: Yes Section B Chief Complaint: a fib w rvr Allergies: Allergies Allergy/AdvReac Type Severity Reaction Status Date / Time adhesive tape [ADHESIVE TAPE] Allergy Intermediate BLISTERS Verified 04/02/23 12:43 Plan Diagnosis/Plan: Unchanged I have reviewed the history and physical and performed a pertinent physical examination on my patient. No changes have occurred unless specified. Time Spent With Patient Time: Total time managing care of this patient today ____ minutes.
--- NOTE | 2023-04-02 14:01 | HO.CARDIVERS ---
Cardioversion Procedure Note Cardioversion Date of Procedure: 04/02/23 Ordering Provider: Jaime Clifford Performing Provider: Jaime Clifford Indication for Procedure: Symptomatic atrial fibrillation. Consent: Verbal and Written consent was obtained from the patient before starting. The patient was made aware of the risk of stroke, failure, skin elder. Procedure: After consent obtained, defib pads were attached and the patient was sedated by the anesthesia team. Once adequate sedation achieved, single synchronized shock of 200 J was given which converted the rhythm to sinus. Complications: None Recommendations: c/w Sotalol and Apixaban.
--- NOTE | 2023-04-02 16:07 | P.PNIM_ITS ---
Subjective Subjective Date of Service: 04/02/23 Interval History: seen and examined this morning follow up for rapid afib reporting intermittent palpitations, no chest pain, no shortness of breath Review of Systems Review of Systems: Yes all other systems are reviewed and are negative Constitutional Constitutional: Denies chills and Denies fever(s) ENT Ears, Nose, Mouth, and Throat: Denies dizziness Cardiovascular Cardiovascular: Denies chest pain, Reports palpitations and Denies dyspnea Respiratory Respiratory: Denies cough and Denies dyspnea Neurologic Neurologic: Denies dizziness Endocrine Endocrine: Reports palpitations Physical Exam Vital Signs: Vital Signs: Last Vital Signs Temp 97.4 F 04/02/23 14:51 Pulse 52 04/02/23 14:51 Resp 13 04/02/23 14:51 BP 124/80 04/02/23 14:51 Pulse Ox 96 04/02/23 14:51 O2 Del Method Room Air 04/02/23 14:51 O2 Flow Rate 2 04/02/23 14:20 BMI result Body Mass Index 56.7 Const: General: cooperative, comfortable, alert and awake Nutritional Appearance: obese Orientation/consciousness: patient oriented x3 Resp: Effort & Inspection: normal respiratory effort and able to speak in complete sentences Auscultation: clear to auscultation bilaterally Cardio: Rate: tachycardic Rhythm: abnormal rhythm irregularly irregular GI: Inspection: No distended Palpation (GI): Soft to palpation and nontender Neuro: General: patient oriented x3, moves all extremities and CN's II-XI intact bilaterally Extrem: General: Yes no pedal edema Objective Data Active Medications Acetaminophen (Acetaminophen 325 Mg Tablet) 650 mg PO Q6H PRN PRN Reason: Pain, Mild (Pain Scale 1-3) Albuterol Sulfate (Albuterol Sulfate 90 Mcg 8 Gm Inhaler) 2 puff INHALE Q4H PRN PRN Reason: shortness of breath or wheezing Apixaban (Apixaban 5 Mg Tablet) 5 mg PO BID [facility] Last Admin: 04/02/23 09:27 Dose: 5 mg Documented By: SANA Atorvastatin Calcium (Atorvastatin Calcium 40 Mg Tablet) 40 mg PO BEDTIME [facility] Fluticasone/Vilanterol (Fluticasone/Vilanterol 200/25 Blst.W.Dev) 1 puff INHALE RDAILY [facility] Last Admin: 04/02/23 08:25 Dose: Not Given Documented By: FUNMILAYO Non-Admin Reason: Med Not Available Furosemide (Furosemide 40 Mg Tablet) 40 mg PO DAILY [facility]; Protocol Last Admin: 04/02/23 09:27 Dose: 40 mg Documented By: SANA Lactated Ringer's (Lr) 500 mls @ 20 mls/hr IVCONT .Q24H [facility] Omeprazole (Omeprazole 20 Mg Capsule.Dr) 20 mg PO DAILY@0630 [facility] Ondansetron HCl (Ondansetron Hcl 4 Mg/2 Ml Vial) 4 mg IVPUSH ONCE PRN PRN Reason: Nausea and Vomiting Paroxetine HCl (Paroxetine Hcl 30 Mg Tablet) 45 mg PO DAILY [facility] Last Admin: 04/02/23 09:27 Dose: 45 mg Documented By: SANA Sodium Chloride (0.9 % Sodium Chloride Flush 3 Ml Syringe) 3 ml IVFLUSH QSHIFT [facility] Last Admin: 04/02/23 09:27 Dose: 3 ml Documented By: SANA Sotalol HCl (Sotalol Hcl 120 Mg Tablet) 120 mg PO BID [facility] Last Admin: 04/02/23 10:32 Dose: 120 mg Documented By: SANA Vitamin D (Cholecalciferol (Vitamin D3) 25 Mcg Tablet) 25 mcg PO DAILY [facility] Last Admin: 04/02/23 09:27 Dose: 25 mcg Documented By: SANA Labs 04/02/23 01:24 04/02/23 05:37 Labs: Laboratory Results - last 24 hr 04/02/23 04/02/23 04/02/23 01:24 01:24 01:24 MCV 85.7 MCH 29.2 MCHC 34.1 RDW 13.0 Plt Count 227 MPV 10.5 Immature Gran % (Auto) 0.3 Neut % (Auto) 59.5 Lymph % (Auto) 29.0 [place] % (Auto) 9.3 Eos % (Auto) 1.5 Baso % (Auto) 0.4 Lymph # (Auto) 2.3 [place] # (Auto) 0.7 Eos # (Auto) 0.1 Baso # (Auto) 0.0 Abs Immat Gran (auto) 0.02 Absolute Neuts (auto) 4.7 Absolute Nucleated RBC 0.000 Nucleated RBC % (auto) 0.0 PT 11.5 INR 1.0 Anion Gap 14 Estim Creat Clear Calc 96.2 Estimated GFR > 60 Random Glucose 159 H Calcium 9.2 D Total Bilirubin 1.1 H AST 17 ALT 22 Alkaline Phosphatase 111 Troponin I High Sens B-Natriuretic Peptide Total Protein 6.3 L Albumin 3.8 Urine Color Urine Appearance Urine pH Ur Specific [place] Urine Protein Urine Glucose (UA) Urine Ketones Urine Blood Urine Nitrite Ur Leukocyte Esterase Urine RBC Urine WBC Ur Squamous Epith Cells Calcium Oxalate Crystal Urine Bacteria Hyaline Casts 04/02/23 04/02/23 04/02/23 01:24 01:24 04:31 MCV MCH MCHC RDW Plt Count MPV Immature Gran % (Auto) Neut % (Auto) Lymph % (Auto) [place] % (Auto) Eos % (Auto) Baso % (Auto) Lymph # (Auto) [place] # (Auto) Eos # (Auto) Baso # (Auto) Abs Immat Gran (auto) Absolute Neuts (auto) Absolute Nucleated RBC Nucleated RBC % (auto) PT INR Anion Gap Estim Creat Clear Calc Estimated GFR Random Glucose Calcium Total Bilirubin AST ALT Alkaline Phosphatase Troponin I High Sens 3.0 4.0 B-Natriuretic Peptide 165 H Total Protein Albumin Urine Color Urine Appearance Urine pH Ur Specific [place] Urine Protein Urine Glucose (UA) Urine Ketones Urine Blood Urine Nitrite Ur Leukocyte Esterase Urine RBC Urine WBC Ur Squamous Epith Cells Calcium Oxalate Crystal Urine Bacteria Hyaline Casts 04/02/23 04/02/23 05:37 10:33 MCV MCH MCHC RDW Plt Count MPV Immature Gran % (Auto) Neut % (Auto) Lymph % (Auto) [place] % (Auto) Eos % (Auto) Baso % (Auto) Lymph # (Auto) [place] # (Auto) Eos # (Auto) Baso # (Auto) Abs Immat Gran (auto) Absolute Neuts (auto) Absolute Nucleated RBC Nucleated RBC % (auto) PT INR Anion Gap 14 Estim Creat Clear Calc 108.6 Estimated GFR > 60 Random Glucose 132 H Calcium 9.1 Total Bilirubin 1.0 AST 16 ALT 20 Alkaline Phosphatase 108 Troponin I High Sens B-Natriuretic Peptide Total Protein 6.0 L Albumin 3.6 Urine Color Yellow Urine Appearance Cloudy Urine pH 7.0 Ur Specific [place] 1.020 Urine Protein Negative Urine Glucose (UA) Negative Urine Ketones Negative Urine Blood Negative Urine Nitrite Positive H Ur Leukocyte Esterase Negative Urine RBC 0-2 Urine WBC 6-10 H Ur Squamous Epith Cells 0-2 Calcium Oxalate Crystal Present Urine Bacteria 4+ Hyaline Casts 0-2 Assessment and Plan (1) Atrial fibrillation, rapid: Status: Acute Plan 67 yo F with past medical history of AFib, chronic diastolic heart failure, HTN, COPD presents to the hospital comes into the hospital in AFib with RVR AFib with RVR s/p successful cardioversion continue sotolol and Eliquis for AC chronic diastolic heart failure not in exacerbation continue Lasix 40 daily mood continue home meds DVT prophylaxis: Maki attending - dr. edna rawls - likely home tomorrow Time Spent With Patient Time: Total time managing care of this patient today ____ minutes. Quality Stroke Does the patient have a stroke diagnosis?: No VTE Prior VTE?: No VTE Risk Level:: Medical - moderate - high VTE Device Contraindication: Treatment Not Indicated VTE Drug Contraindication: N/A - Med Ordered
--- NOTE | 2023-04-02 18:43 | PC.NURSE ---
Patient arrived from ED in bed oriented to room, call scott system and staff. A&OX4. Vital signs stable. WHITLEY to command 4/5, sensation intact. c/o mild headache d/t being hungry. Denies dizziness or vision changes. Lung sounds clear no shortness of breath or chest pain noted, SB on tele in 50's. BS+X4 abdomen soft non-tender denies nausea/vomiting. MD paged for diet tolerating meals without difficulty. Will continue to monitor and report changes
[2023-04-02] MEDS: Atorvastatin Calcium 40 MG TABLET PO (20:17)
[2023-04-03] MEDS: 0.9 % Sodium Chloride Flush 3 ML SYRINGE IVFLUSH ×2 (00:30→10:17)
[2023-04-03 03:18] VITALS: BP 134/60; PULSE 49; RESP 18; TEMP 36.3; O2SAT 96
--- NOTE | 2023-04-03 05:07 | PC.NURSE ---
Patient's HR sustained in the 40's overnight. Patient sleeping asymptomatic. Hospitalist notified. Will continue to monitor.
[2023-04-03] MEDS: Omeprazole 20 MG CAPSULE.DR PO (05:24)
[2023-04-03] MEDS: Fluticasone/Vilanterol 200/25 BLST.W.DEV 1 PUFF INHALE (07:35)
[2023-04-03 07:37] VITALS: PULSE 57; RESP 18; O2SAT 99
[2023-04-03 07:56] VITALS: BP 140/72; PULSE 50; RESP 20; TEMP 36.2; O2SAT 92
--- NOTE | 2023-04-03 09:14 | MHC.CM.PN ---
IMM 04/03/23. Pt admitted with A-fib with RVR. Pt from home, lives with spouse is independent/self-care, no services, uses a cane. HCP on file and verified. D/C plan to return home self-care once medically cleared. Pts daughter to transport. PCP: Dr. Ang Ceron vax: x 4
--- NOTE | 2023-04-03 09:22 | HO.POSTANES ---
Post Anesthesia Evaluation Post Anesthesia Evaluation Vital Signs: Vital Signs Temp Pulse Resp BP Pulse Ox O2 Del Method 04/03/23 07:56 97.2 F 50 20 140/72 H 92 Room Air 04/03/23 07:37 57 18 04/03/23 03:18 97.4 F 49 L 18 134/60 96 Room Air 04/02/23 23:15 97 F 50 18 142/75 H 95 Room Air Anesthesia: General Mental Status: Awake Pain Control: Satisfactory Nausea/Vomiting: None Hydration: Adequate Anesthesia-Related Issues: No Anes. Related Issues
--- NOTE | 2023-04-03 09:58 | PM.DS ---
DS: Providers Provider Date of Service: 04/03/23 Date of admission: 04/02/23 03:52 Date of discharge: 04/03/23 Primary care physician: Ang Bernstein MD Consults: 04/02/23 03:51 Consult to Cardiology Routine Consulting Provider: [facility] Reason for consultation: a fib w rvr Has provider been notified: Yes Attending physician on discharge: Dania Sherwood Discharging clinician: Ni Lopez DS: Diagnosis Discharge Diagnosis (1) Atrial fibrillation, rapid: Status: Acute DS: Summary Hospital Course Hospital Course: From H&P on day of admission 67-year-old female past medical history of heart failure with diastolic dysfunction, hypertension, asthma, COPD, morbid obesity, paroxysmal AFib, status post cardioversion x3, on Eliquis and sotalol, presents to the hospital with complaints of palpitations, diaphoretic, and stating that her Apple watch showing her heart to be in the 110s to 140s? and the EKG on her watch indicating AFib. ? She has also states that for few hours she started developing urinary frequency without burning or urgency. patient otherwise denies any chest pain,? no headache or change in vision, no dizziness, no abdominal pain nausea or vomiting, no diarrhea constipation, no urinary symptoms and no lower extremity edema.? Denies any recent illness. ? On arrival to the ED patient found to be in heart rate of 130s in AFib with RVR, blood pressure stable ?labs reviewed unremarkable,? no elevated troponin, BNP of 165, Patient given Cardizem 10 mg IV, case was discussed with Cardiology, plan for cardioversion in a.m. Atrial fibrillation with rapid ventricular response. Patient received a dose of IV Cardizem in the emergency department and was resumed on her home dose of sotalol. She was evaluated by Cardiology and underwent successful cardioversion. She has remained in sinus rhythm overnight. Her palpitations have resolved. She will continue to take sotalol and Eliquis for anticoagulation. She is encouraged to follow-up with Cardiology on an outpatient basis. No changes were made to medications. urinalysis was obtained and was negative for acute infection. Urine culture negative. denies urinary symptoms Time Spent with Patient Time attestation: Total time managing care of this patient today ____ minutes. Discharge coordination time: Greater than 30 minutes Quality: Safe Use of Opioids Does Pt have an Active Cancer Diagnosis on the Problem List?: No Quality: Stroke Does the patient have a stroke diagnosis?: No Physical Exam Vital Signs: Vital Signs: Last Vital Signs Temp 97.2 F 04/03/23 07:56 Pulse 50 04/03/23 07:56 Resp 20 04/03/23 07:56 BP 140/72 H 04/03/23 07:56 Pulse Ox 92 04/03/23 07:56 O2 Del Method Room Air 04/03/23 07:56 O2 Flow Rate 2 04/02/23 14:20 BMI result Body Mass Index 56.7 Const: General: cooperative, comfortable, alert and awake Nutritional Appearance: obese Orientation/consciousness: patient oriented x3 Resp: Effort & Inspection: normal respiratory effort and able to speak in complete sentences Auscultation: clear to auscultation bilaterally Cardio: Rate: bradycardic Heart sounds: S1 normal heart sound present and S2 normal heart sound present GI: Inspection: No distended Palpation (GI): Soft to palpation and nontender Neuro: General: patient oriented x3, moves all extremities and CN's II-XI intact bilaterally Extrem: General: Yes no pedal edema DS: Data Data Completed and Pending Completed studies during hospitalization [Text1]: Procedures Assistance with Respiratory Ventilation, Less than 24 Consecutive Hours, Continuous Positive Airway Pressure (07/23/22) Islam of Cardiac Rhythm, Single (07/23/22) Labs on day of discharge: Laboratory Results - last 24 hr 04/02/23 10:33 Urine Color Yellow Urine Appearance Cloudy Urine pH 7.0 Ur Specific [place] 1.020 Urine Protein Negative Urine Glucose (UA) Negative Urine Ketones Negative Urine Blood Negative Urine Nitrite Positive H Ur Leukocyte Esterase Negative Urine RBC 0-2 Urine WBC 6-10 H Ur Squamous Epith Cells 0-2 Calcium Oxalate Crystal Present Urine Bacteria 4+ Hyaline Casts 0-2 Discharge Plan Discharge Anticipated Discharge Date/Time: 04/03/23 09:47 Patient Disposition: Home, Self-Care Discharge Diagnosis: afib with RVR status post cardioversion Referrals: Ang Bernstein MD [Primary Care Provider] - 1 Week Jaime Clifford MD [Physician] - 2 Weeks Discharge Medications: Continued cholecalciferol (vitamin D3) 25 mcg (1,000 unit) capsule 25 mcg PO DAILY Qty: 30 0RF multivitamin Tablet 1 tab PO DAILY Qty: 30 0RF omega-3 fatty acids 1,250 mg capsule 1,250 mg PO DAILY Qty: 30 0RF valsartan 160 mg tablet 160 mg PO DAILY Qty: 60 3RF furosemide [Lasix] 40 mg tablet 40 mg PO DAILY 90 Days Qty: 90 3RF budesonide-formoterol [Symbicort] 160-4.5 mcg/actuation HFA aerosol inhaler 2 puff PO Q12H Qty: 10.2 3RF sotalol 240 mg tablet 120 mg PO BID albuterol sulfate [ProAir HFA] 90 mcg/actuation HFA aerosol inhaler 2 puff inhalation Q4-6H PRN (Reason: shortness of breath or wheezing) 30 Days Qty: 8.5 3RF paroxetine HCl 30 mg tablet 45 mg PO DAILY mecobalamin (vitamin B12) 5,000 mcg tablet,disintegrating 5,000 mcg PO MOWEFR@1000 rosuvastatin 10 mg tablet 10 mg PO BEDTIME Eliquis 5 mg tablet 5 mg PO BID 90 Days Qty: 180 3RF omeprazole 20 mg capsule,delayed release(DR/EC) 20 mg PO DAILY@0630 Discharge Orders: Discharge Order (Routine); Ordered 04/03/23 Ordered By: Ni Lopez Activity on Discharge: As tolerated Stand Alone Forms: Patient Portal Discharge page Care Plan Goals: see below Health Concerns: atrial fibrillation with rapid ventricular response Plan of Treatment: status post successful cardioversion continue to take meds as prescribed call to schedule follow up with cardiology Assessment: see discharge summary Discharge Date/Time: 04/03/23 12:53
[2023-04-03 10:10] VITALS: BP 133/65; PULSE 60
[2023-04-03] MEDS: PARoxetine HCL 30 MG TABLET 45 MG PO (10:15)
[2023-04-03] MEDS: Apixaban 5 MG TABLET PO (10:17)
[2023-04-03] MEDS: Cholecalciferol (Vitamin D3) 25 MCG TABLET PO (10:17)
[2023-04-03] MEDS: Furosemide 40 MG TABLET PO (10:17)
[2023-04-03] MEDS: SOTALOL HCL 120 MG PO (10:17)
[2023-04-03 11:10] VITALS: BP 140/67; PULSE 53; RESP 20; TEMP 36.2; O2SAT 93
--- NOTE | 2023-04-03 12:40 | P.PNCA_ITS ---
Subjective Subjective Date of Service: 04/03/23 Interval history: Seen and examined at bedside. in sinus rhythm. Going home today. Physical Exam Vital Signs: Last Vital Signs Temp 97.2 F 04/03/23 11:10 Pulse 53 04/03/23 11:10 Resp 20 04/03/23 11:10 BP 140/67 H 04/03/23 11:10 Pulse Ox 93 04/03/23 11:10 O2 Del Method Room Air 04/03/23 11:10 O2 Flow Rate 2 04/02/23 14:20 BMI result Body Mass Index 56.7 GENERAL APPEARANCE: in no acute distress, pleasant. morbidly obese. NECK: no carotid bruit, no jugular venous distention. SKIN: no suspicious lesions, warm and dry. HEART: no murmurs, regular rhythm, bradycardic. LUNGS: clear to auscultation bilaterally. ABDOMEN: soft, nontender. EXTREMITIES: no edema. PERIPHERAL PULSES: equal. NEUROLOGIC: No gross deficits, AAO X 3 Objective Labs and Meds 04/02/23 01:24 04/02/23 05:37 Progress Note: A&P Assessment and plan (1) Atrial fibrillation: Status: Acute Plan 59-year-old female with paroxysmal atrial fibrillation presenting for palpitations and episode of AFib. She is status post cardioversion again. She is on sotalol 120 mg b.i.d. along with apixaban 5 mg b.i.d.. These should be continued as before. She previously saw electrophysiology at [facility]. Advised to lose weight. I discussed with her about considering Ozempic and a referral to the weight management program at [facility]. She will discuss this with her primary care physician. Follow-up in the office in few weeks. Thank you Time Spent With Patient Time: Total time managing care of this patient today ____ minutes. Progress Note: Quality Stroke Does the patient have a stroke diagnosis?: No Procedures Date of Service Date of Service: 04/03/23
--- NOTE | 2023-04-03 13:11 | MHC.CM.PN ---
Pt medically cleared for D/C home self-care. Pts daughter will transport.
== END 2023-04-03 12:53 | disposition home or self-care (01) | DRG 309 ==
LOC: HO.ED 02:46 → HO.EDOVER 04:03 → HO.IMC 15:19
PROVIDERS: Internal Medicine Cardiovascular Disease; Admitting Provider Internal Medicine; Emergency Provider Emergency Medicine Emergency Medical Services; PCP Internal Medicine; Visit Provider Physician Assistant Medical
PROC: 5A2204Z Restoration of Cardiac Rhythm, Single (ICD-10-PCS; principal; 2023-04-02 12:30)
DX: I48.0 Paroxysmal atrial fibrillation (principal); I50.32 Chronic diastolic (congestive) heart failure; Z68.43 Body mass index [BMI] 50.0-59.9, adult; F32.9 Major depressive disorder, single episode, unspecified; I11.0 Hypertensive heart disease with heart failure; E66.01 Morbid (severe) obesity due to excess calories; G47.33 Obstructive sleep apnea (adult) (pediatric); Z98.84 Bariatric surgery status; Z87.891 Personal history of nicotine dependence; Z79.01 Long term (current) use of anticoagulants; Z79.899 Other long term (current) drug therapy
CPT/HCPCS: 36415; 71045; 80053; 81001; 83880; 84484; 85025; 85610; 87086; 92960; 93005; 94640; 99285

== ENCOUNTER 2023-04-15 10:45 | Outpatient (REF) | payer MEDICARE, OTHER, SELFPAY ==
--- NOTE | ~2023-04-15 | MM_ITS ---
EXAMINATION: MM SCREENING DIGITAL BREAST TOMOSYNTHESIS, BILATERAL CLINICAL INFORMATION: Screening. Asymptomatic. The lifetime risk of breast cancer based on the Tyrer-Cuzick Model is 5%. COMPARISON: Mammography: 04/04/2022, 03/29/2021, 05/28/2015 TECHNIQUE: Digital breast tomosynthesis is performed in both the craniocaudal and mediolateral oblique views along with computer-aided detection (CAD). Synthesized 2D images are generated from the tomosynthesis. Additional left cleavage view is provided. FINDINGS: There are scattered areas of fibroglandular density (ACR BI-RADS breast composition Category b). There are no significant masses, abnormal calcifications, or other abnormalities. Breast tissue composition borders on predominantly fatty. The background stromal and fibroglandular densities are stable and there is no developing density or architectural abnormality. The axilla and skin contours are unremarkable. MM/MM tomosynthesis screening BI IMPRESSION: No mammographic evidence of malignancy. ASSESSMENT: BI-RADS 1: Negative RECOMMENDATION: Routine annual mammography screening. This patient's information was entered into a reminder system with a target due date for their next mammogram.
== END 2023-04-15 10:46 | disposition home or self-care (01) ==
LOC: HO.MAMMO 10:45
PROVIDERS: PCP Internal Medicine; Visit Provider Internal Medicine
DX: Z12.31 Encounter for screening mammogram for malignant neoplasm of breast (principal); I48.0 Paroxysmal atrial fibrillation
CPT/HCPCS: 77063; 77067; 93005; 99212

== ENCOUNTER 2023-05-25 14:15 | Outpatient (AMB) | payer MEDICARE, OTHER, SELFPAY ==
--- NOTE | 2023-05-25 14:17 | MHC.OFFVIS ---
Intake Vital Signs 05/25/23 14:18 Height 5 ft 3 in Weight 326 lb BMI 57.7 BP 150/84 H Blood Pressure Location Lt brachial Position Sitting Pulse 64 Pulse Source Pulse Oximeter Pulse Oximetry (%) 96 Oxygen Delivery Method Room Air Intake Visit Reasons: Cough Intake Note: pt is here for follow up and does have a new c-pap but only started it for a few days due to being in the hospital and medication management. Plate Worker Required: No Allergies adhesive tape [ADHESIVE TAPE] Allergy (Intermediate, Verified 05/25/23 14:38) BLISTERS Medication List - Last Reconciled 05/25/23 by Han Aldridge MD albuterol sulfate 90 mcg/actuation (ProAir HFA) 2 puffs inhalation Q4-6H PRN 30 days apixaban (Eliquis) 5 mg PO BID 90 days budesonide-formoterol 160-4.5 mcg/actuation (Symbicort) 2 puffs PO Q12H cholecalciferol (vitamin D3) 25 mcg PO DAILY furosemide (Lasix) 40 mg PO DAILY 90 days mecobalamin (vitamin B12) 5,000 mcg PO MOWEFR@1000 multivitamin 1 tab PO DAILY omega-3 fatty acids 1,250 mg PO DAILY omeprazole 20 mg PO DAILY@0630 paroxetine HCl 45 mg PO DAILY rosuvastatin 10 mg PO BEDTIME semaglutide (Ozempic) 0.25 mg subcut QWEEK sotalol 120 mg PO BID valsartan 160 mg PO DAILY Do you need a note to return to daycare/school/sports/work: No HPI Cough HPI Details 67 years old very pleasant female a case of morbid obesity, obstructive sleep apnea, and bronchial asthma, Comes after 4 months for her routine follow-up. In March 2023 she was admitted to the hospital for a few days for atrial fibrillation, which is now well controlled. Breathing has been very good, using Symbicort 2 puffs b.i.d., hardly needs the rescue inhaler. As far as sleep apnea is concerned she has new CPAP machine which she uses regularly every night, She sleeps well for 6-7 hours per night. No issues with the mask( Nasal ) and CPAP device . We were not able to get the compliance report, but she claims that she uses every night regularly, and without using CPAP she would have hard time to sleep. For weight loss she is on Ozempic 0.25 mg subQ weekly, and is starting to lose some weight. [facility] Medical History Asthma exacerbation Bronchial asthma Bronchitis GERD (gastroesophageal reflux disease) History of cardioversion HTN (hypertension) MDD (major depressive disorder) Morbid obesity JIMBO on CPAP PAF (paroxysmal atrial fibrillation) Post covid-19 condition, unspecified Surgical History Anal fistula H/O colonoscopy H/O umbilical hernia repair History of cardioversion History of cholecystectomy History of hysterectomy for cancer Hx of laparoscopic gastric banding Social History Household Members: Spouse Housing: House Do you presently have visiting nurse or other home services: No Alcohol intake: never Patient Tobacco Use Status: Former Tobacco user Quit Date: 25 yrs ago Tobacco use type: Cigarette Years Smoked: 25 +/- Second Hand Smoke Exposure: No Advance Directives Date on File: 12/25/22 service: No Current occupational status: unemployed Review of Systems Const All systems reviewed & are unremarkable except as noted in HPI and below Eyes Reports no additional complaints ENT Reports no additional complaints Card Denies chest pain, Denies irregular heart rhythm and Denies leg edema Resp Reports as per HPI, Reports cough and Reports wheezing GI Reports as per HPI Reports no additional complaints Musc Reports no additional complaints Skin/Breast Reports system reviewed and no additional complaints, except as documented Neuro Reports no additional complaints Psych Reports no additional complaints Aller/Immun Reports wheezing Physical Exam Vital Signs: Last Vital Signs Pulse 64 05/25/23 14:18 BP 150/84 H 05/25/23 14:18 Pulse Ox 96 05/25/23 14:18 Oxygen Delivery Method Room Air 05/25/23 14:18 BMI result Body Mass Index 57.7 She remains grossly obese with a round face Const General: comfortable, no acute distress, alert and awake Orientation/consciousness: patient oriented x3 HEENT Head: Yes normal to inspection General nose exam: No nasal polyps present and No nasal discharge present Face and sinus: Yes sinuses nontender Mouth: oropharynx abnormals (CROWDED, MALLAMPATI CLASS 4) Throat: Yes posterior oropharynx normal Eyes General: appearance normal, both eyes and all related structures Neck Neck: Yes normal visual inspection, Yes no lymphadenopathy, Yes trachea midline and Yes no JVD Thyroid: Thyroid normal Chest Chest palpation & inspection: normal inspection of the chest, normal palpation of entire chest wall and no tenderness Resp Other: PERCUSSION NOTE IS RESONANT, BREATH SOUNDS ARE SLIGHTLY DISTANT BUT EQUAL ON BOTH SIDES. DIMINISHED OVER THE BASILAR AREAS. NO WHEEZES OR CREPITATIONS ARE HEARD TODAY. Cardio Palpation: normal PMI Rate: regular rate and tachycardic Rhythm: abnormal rhythm Heart sounds: no gallops and no murmurs Peripheral pulses: Peripheral pulses 2+ throughout GI Palpation (GI): Soft to palpation, nontender, No hepatosplenomegaly present and no masses Auscultation: normal bowel sounds Back/Spine/Pelvis Thoracic/Lumbar Spine: thoracic and lumbar spine normal to inspection and thoraco-lumbar ROM limited Skin General skin exam: no rashes or lesions noted Neuro General: patient oriented x3, No gait normal (MILD IMPAIRMENT DUE TO LOW BACK STIFFNESS, USES CANE) and no focal motor deficits Cranial nerves: Yes CN's II-XII intact bilaterally Extrem General: Yes normal to inspection, Yes no clubbing, cyanosis or edema and Yes no calf tenderness Psych Appearance: grossly normal and well kempt Speech and movement: Normal speech and movement present Assessment & Plan Assessment & Plan (1) Morbid obesity: Comment: SHE IS WELL AWARE OF HER PROBLEM OF OBESITY. She is on her diet program. Also currently on Ozempic 0.25 mg subQ weekly. Code(s): E66.01 - Morbid (severe) obesity due to excess calories (2) JIMBO on CPAP: Comment: PATIENT IS WELL USED TO CPAP DEVICE. SHE HAS BEEN VERY COMPLIANT AND BENEFITTING. NO ISSUES WITH THE MACHINE OR CPAP MASK. She has a new CPAP device, which is working very well. No issues at this time. Code(s): G47.33 - Obstructive sleep apnea (adult) (pediatric); Z99.89 - Dependence on other enabling machines and devices (3) Bronchial asthma: Comment: SHE HAS MILD INTERMITTENT BRONCHIAL ASTHMA. NO EVIDENCE OF COPD. MAY HAVE SOME RESTRICTIVE COMPONENT. RX : CONT. SYMBICORT 160-4.5 2 PUFFS BID . LONG SHE DOES NOT HAVE ANY ACTIVE COUGH OR WHEEZING SHE MAY REDUCE SYMBICORT TO 1 PUFF B.I.D., AND ALBUTEROL HFA 2 PUFFS Q 4-6 HRS PRN Code(s): J45.909 - Unspecified asthma, uncomplicated Coding Level of Care Code Est Pt Level 3 (93457) Diagnoses Morbid obesity E66.01 JIMBO on CPAP G47.33; Z99.89 Bronchial asthma J45.909
[2023-05-25 14:18] VITALS: BP 150/84; PULSE 64; O2SAT 96; BMI 57.7
== END 2023-05-25 14:38 | disposition home or self-care (01) ==
PROVIDERS: PCP Internal Medicine; Visit Provider Internal Medicine
DX: E66.01 Morbid (severe) obesity due to excess calories (principal); G47.33 Obstructive sleep apnea (adult) (pediatric); Z99.89 Dependence on other enabling machines and devices; J45.909 Unspecified asthma, uncomplicated
CPT/HCPCS: 99213

== ENCOUNTER → 2023-05-25 14:15 | Outpatient (BNVA) | payer MEDICARE, OTHER, SELFPAY | PROVIDERS: PCP Internal Medicine; Visit Provider Internal Medicine | DX: J45.909 Unspecified asthma, uncomplicated (principal); G47.33 Obstructive sleep apnea (adult) (pediatric); E66.01 Morbid (severe) obesity due to excess calories; Z99.89 Dependence on other enabling machines and devices; Z68.43 Body mass index [BMI] 50.0-59.9, adult | CPT/HCPCS: 99212 ==

== ENCOUNTER 2023-08-17 12:58 | Outpatient (AMB) | payer MEDICARE, OTHER, SELFPAY ==
[2023-08-17 13:02] VITALS: BP 150/72; PULSE 88; BMI 57.7
--- NOTE | 2023-08-17 13:02 | A.OFFVIS_ITS ---
Intake Vital Signs 08/17/23 13:02 Height 5 ft 3 in Weight 325 lb 13.491 oz BMI 57.7 BP 150/72 H Blood Pressure Location Lt brachial Position Sitting Pulse 88 Pulse Source Pulse Oximeter Intake Visit Reasons: 4 month follow-up Intake Note: 4 month f/u Residential Appraiser Required: No Allergies adhesive tape [ADHESIVE TAPE] Allergy (Intermediate, Verified 08/17/23 13:07) BLISTERS Medication List - Last Reconciled 08/17/23 by Jaime Clifford MD albuterol sulfate 90 mcg/actuation (ProAir HFA) 2 puffs inhalation Q4-6H PRN 30 days apixaban (Eliquis) 5 mg PO BID 90 days budesonide-formoterol 160-4.5 mcg/actuation (Symbicort) 2 puffs PO Q12H cholecalciferol (vitamin D3) 25 mcg PO DAILY furosemide (Lasix) 40 mg PO DAILY 90 days mecobalamin (vitamin B12) 5,000 mcg PO MOWEFR@1000 multivitamin 1 tab PO DAILY omega-3 fatty acids 1,250 mg PO DAILY omeprazole 20 mg PO DAILY@0630 paroxetine HCl 45 mg PO DAILY rosuvastatin 10 mg PO BEDTIME semaglutide (Ozempic) 0.25 mg subcut QWEEK sotalol 120 mg PO BID valsartan 160 mg PO DAILY HPI HPI Comments History of Present Illness Details Pleasant 67-year-old female with paroxysmal atrial fibrillation status post cardioversion in the past who recently came to emergency department with palpitations and was back in AFib. She was previously started on amiodarone and was referred fibrillation but due to morbid obesity she was advised to lose weight. At that stage her amiodarone was stopped and she was started on sotalol. She has also failed flecainide in the past. He was cardioverted after admission at the hospital and was discharged home. She is coming back for follow-up. She is doing well. No symptoms. She previously had a lap band which failed. She is on Ozempic. 08/17/23: She returns for follow-up. Tyler stevenson has been doing well and is denying any palpitations. She is currently taking sotalol. Blood pressure is elevated. He is taking Ozempic for 3 months but has not lost significant amount of weight. She is looking into the weight management program for advice. [facility] Medical History Asthma exacerbation Bronchial asthma Bronchitis GERD (gastroesophageal reflux disease) History of cardioversion HTN (hypertension) MDD (major depressive disorder) Morbid obesity JIMBO on CPAP PAF (paroxysmal atrial fibrillation) Post covid-19 condition, unspecified Surgical History History of cardioversion Anal fistula Hx of laparoscopic gastric banding History of hysterectomy for cancer H/O umbilical hernia repair History of cholecystectomy H/O colonoscopy Social History Household Members: Spouse Housing: House Do you presently have visiting nurse or other home services: No Alcohol intake: never Patient Tobacco Use Status: Former Tobacco user Quit Date: 25 yrs ago Tobacco use type: Cigarette Years Smoked: 25 +/- Second Hand Smoke Exposure: No Advance Directives Date on File: 12/25/22 service: No Current occupational status: unemployed Review of Systems ENT Reports dizziness Card Denies chest pain, Denies chest pain at rest, Denies chest pain with activity, Denies rapid heart rate, Denies pedal edema, Denies edema, Denies leg edema, Denies lightheadedness, Denies palpitations, Denies dyspnea, Denies dyspnea on exertion and Denies orthopnea Resp Denies cough, Denies dyspnea and Denies dyspnea on exertion GI Denies hematochezia and Denies change in stool character Musc Denies abnormal gait, Reports limited range of motion, Reports muscle cramps, Denies muscle weakness, Denies numbness, Denies radiating pain into limb, Denies stiffness and Denies tingling Neuro Denies abnormal gait, Reports dizziness, Denies numbness and Denies tingling Endo Denies palpitations Physical Exam Vital Signs: Last Vital Signs Pulse 88 08/17/23 13:02 BP 150/72 H 08/17/23 13:02 BMI result Body Mass Index 57.7 GENERAL APPEARANCE: in no acute distress, pleasant. morbidly obese. NECK: no carotid bruit, no jugular venous distention. SKIN: no suspicious lesions, warm and dry. HEART: no murmurs, regular rhythm. LUNGS: clear to auscultation bilaterally. ABDOMEN: soft, nontender. EXTREMITIES: no edema. PERIPHERAL PULSES: equal. NEUROLOGIC: No gross deficits, AAO X 3 Assessment & Plan Assessment & Plan (1) PAF (paroxysmal atrial fibrillation): Code(s): I48.0 - Paroxysmal atrial fibrillation (2) Chronic diastolic heart failure: Code(s): I50.32 - Chronic diastolic (congestive) heart failure Plan Pleasant 67-year-old female with morbid obesity, paroxysmal atrial fibrillation, diastolic heart failure and hypertension. She is on sotalol currently with good rhythm control currently. Blood pressure is elevated. I have advised her to increase the valsartan to 320 mg daily. She will be seeing her primary care physician in September and will have blood pressure checked then. We will see her back in 3 months. If her blood pressure continues to be elevated then amlodipine should be added to her regimen. She is looking into weight management. She is taking Ozempic currently but has not lost significant amount of weight. Thank you for allowing me to participate in the care of your patient. Please feel free to contact me if you have any questions. Medications: New valsartan 320 mg PO DAILY 90 tabs 3RF Discontinued valsartan Discontinued Reason: Doctor's Order 160 mg PO DAILY 60 tabs 3RF Coding Level of Care Code Est Pt Level 4 (39638) Diagnoses PAF (paroxysmal atrial fibrillation) I48.0 Chronic diastolic heart failure I50.32
== END 2023-08-17 13:27 | disposition home or self-care (01) ==
PROVIDERS: PCP Internal Medicine; Visit Provider Internal Medicine Cardiovascular Disease
DX: I48.0 Paroxysmal atrial fibrillation (principal); I50.32 Chronic diastolic (congestive) heart failure
CPT/HCPCS: 99214

== ENCOUNTER 2023-08-20 13:37 | Inpatient (IN) | payer MEDICARE, OTHER, SELFPAY ==
[2023-08-20] VITALS (8 sets, daily range): BP systolic 128–168; BP diastolic 68–104; PULSE 118–134; RESP 12–23; TEMP 36.8; O2SAT 95–98; BMI 57.6
--- NOTE | 2023-08-20 13:40 | ED_ITS ---
HPI - General Adult General Chief complaint: Arrhythmia/Palpitations Stated complaint: afib Time Seen by Provider: 08/20/23 14:06 Related Data Home Medications Medication Instructions Recorded Confirmed paroxetine HCl 30 mg tablet 45 mg PO DAILY 10/01/20 08/20/23 mecobalamin (vitamin B12) 5,000 5,000 mcg PO MOWEFR@1000 08/06/22 08/20/23 mcg disintegrating tablet rosuvastatin 10 mg tablet 10 mg PO DAILY 08/06/22 08/20/23 omeprazole 20 mg capsule,delayed 20 mg PO DAILY@0630 10/14/22 08/20/23 release semaglutide 0.25 mg or 0.5 mg (2 0.25 mg subcut TU 05/25/23 08/20/23 mg/3 mL) subcutaneous pen injector ([employer]) Previous Rx's Medication Instructions Recorded cholecalciferol (vitamin D3) 25 25 mcg PO DAILY #30 caps 09/17/20 mcg (1,000 unit) capsule multivitamin 1 tab PO DAILY #30 tabs 09/17/20 omega-3 fatty acids 1,250 mg 1,250 mg PO DAILY #30 caps 09/17/20 capsule albuterol sulfate 90 mcg/actuation 2 puff inhalation Q4-6H PRN 10/29/21 aerosol inhaler (ProAir HFA) shortness of breath or wheezing 30 days #8.5 grams apixaban 5 mg tablet (Eliquis) 5 mg PO BID 90 days #180 tabs 09/03/22 furosemide 40 mg tablet (Lasix) 40 mg PO DAILY 90 days #90 tabs 02/12/23 budesonide-formoterol HFA 160 2 puff PO Q12H #10.2 ea 03/27/23 mcg-4.5 mcg/actuation aerosol inhaler (Symbicort) valsartan 320 mg tablet 320 mg PO DAILY #90 tabs 08/17/23 cefuroxime axetil 250 mg tablet 250 mg PO BID #2 tabs 08/24/23 sotalol 80 mg tablet 160 mg (2 x 80 mg) PO BID #120 tabs 08/24/23 Allergies Allergy/AdvReac Type Severity Reaction Status Date / Time adhesive tape [ADHESIVE TAPE] Allergy Intermediate BLISTERS Verified 08/21/23 12:44 [facility] Past Medical History Medical History History of cardioversion GERD (gastroesophageal reflux disease) Bronchitis Asthma exacerbation PAF (paroxysmal atrial fibrillation) MDD (major depressive disorder) HTN (hypertension) Post covid-19 condition, unspecified Morbid obesity JIMBO on CPAP Bronchial asthma Surgical History History of cardioversion Anal fistula Hx of laparoscopic gastric banding History of hysterectomy for cancer H/O umbilical hernia repair History of cholecystectomy H/O colonoscopy Social History Social History Household Members: Spouse Housing: House Do you presently have visiting nurse or other home services: No Alcohol intake: never Patient Tobacco Use Status: Former Tobacco user Quit Date: 1992 Tobacco use type: Cigarette Years Smoked: 25 +/- Second Hand Smoke Exposure: No Advance Directives Date on File: 12/25/22 service: No Current occupational status: unemployed Physical Exam ED Vital Signs: BMI result Body Mass Index 57.6 Course Course Course Narrative: This is a rapid medical exam: Additional HPI, ROS, PE not included below will be deferred to primary provider. Patient is a 67-year-old female with history of Afib, HF, asthma, HTN, JIMBO, lap band presenting to the ED with complaint of palpitations since last night around dinner time. States when she took her pills last night, she was unable to get the water down. Woke repeatedly throughout the night. Finally woke around 11:30 today and that's when she noted the palpitations. States her smart watch reported heart rates between 50-147. Also reports some shortness of breath. Heart rate in triage in 120's, BP elevated, O2 saturation between 94-96%. Plan: EKG, labs, CXR Medications Administered Discontinued Medications Generic Name Dose Route Start Last Admin Trade Name Freq PRN Reason Stop Dose Admin Apixaban 5 mg 08/20/23 21:00 08/24/23 08:20 Apixaban 5 Mg Tablet PO 5 mg BID CANDY Administration Atorvastatin Calcium 40 mg 08/21/23 09:00 08/24/23 08:21 Atorvastatin Calcium 40 Mg Tablet PO 40 mg DAILY CANDY Administration Cefuroxime Axetil 250 mg 08/23/23 10:00 08/24/23 08:22 Cefuroxime Axetil 250 Mg Tablet PO 250 mg BID CANDY Administration Cyanocobalamin 5,000 mcg 08/21/23 10:00 08/24/23 08:19 Cyanocobalamin (Vitamin B-12) 1,000 Mcg Tablet PO 5,000 mcg MOWEFR@1000 CANDY Administration Fluticasone/Vilanterol 1 puff 08/21/23 08:00 08/24/23 08:13 Fluticasone/Vilanterol 200/25 Blst.W.Dev INHALE 1 puff RDAILY [facility] Administration Furosemide 40 mg 08/21/23 09:00 08/24/23 08:20 Furosemide 40 Mg Tablet PO 40 mg DAILY [facility] Administration Protocol Diltiazem HCl 125 mg/ Sodium 125 mls @ 0 mls/hr 08/20/23 18:45 08/21/23 11:20 Chloride IVCONT Infused .Q0M [facility] Titration Protocol Per Protocol Ceftriaxone Sodium 1 gm/ 50 mls @ 100 mls/hr 08/20/23 21:00 08/22/23 22:54 Sodium Chloride IV Infused Q24H CADNY Infusion Insulin Human Lispro 0 unit 08/22/23 07:30 08/24/23 11:47 Insulin Lispro 100 Unit/Ml 3 Ml Vial SUBCUT Not Given QIDACHS [facility] Protocol Metoprolol Tartrate 5 mg 08/20/23 15:20 08/20/23 15:41 Metoprolol Tartrate 5 Mg/5 Ml Vial IVPUSH 08/20/23 15:21 5 mg ONCE ONE Administration Metoprolol Tartrate 5 mg 08/20/23 15:47 08/20/23 16:05 Metoprolol Tartrate 5 Mg/5 Ml Vial IVPUSH 08/20/23 15:48 5 mg ONCE ONE Administration Metoprolol Tartrate 5 mg 08/20/23 17:01 08/20/23 18:08 Metoprolol Tartrate 5 Mg/5 Ml Vial IVPUSH 08/20/23 17:02 5 mg ONCE ONE Administration Multivitamins/Vitamin C 1 tab 08/21/23 09:00 08/24/23 08:20 Multivitamin Tablet PO 1 tab DAILY CANDY Administration Omeprazole 20 mg 08/21/23 06:30 08/24/23 06:21 Omeprazole 20 Mg Capsule.Dr PO 20 mg DAILY@0630 [facility] Administration Paroxetine HCl 45 mg 08/21/23 09:00 08/24/23 08:21 Paroxetine Hcl 30 Mg Tablet PO 45 mg DAILY CANDY Administration Sodium Chloride 3 ml 08/21/23 00:00 08/24/23 08:24 0.9 % Sodium Chloride Flush 3 Ml Syringe IVFLUSH 3 ml QSHIFT CANDY Administration Sotalol HCl 120 mg 08/20/23 21:00 08/21/23 11:20 Sotalol Hcl 120 Mg Tablet PO 120 mg BID CANDY Administration Sotalol HCl 160 mg 08/21/23 21:00 08/24/23 08:20 Sotalol Hcl 80 Mg Tablet PO 160 mg BID CANDY Administration Valsartan 320 mg 08/21/23 09:00 08/24/23 08:21 Valsartan 320 Mg Tablet PO 320 mg DAILY CANDY Administration Protocol Vitamin D 25 mcg 08/21/23 09:00 08/24/23 08:21 Cholecalciferol (Vitamin D3) 25 Mcg Tablet PO 25 mcg DAILY CANDY Administration Medical Decision Making Lab Data 08/21/23 05:11 08/22/23 06:10 Labs: Lab Results 08/20/23 08/20/23 Range/Units 13:56 18:13 WBC 5.2 (4.8-10.8) X10*3/uL RBC 5.22 (4.20-5.50) X10*6/uL Hgb 15.1 (12.0-16.0) g/dl Hct 44.6 (37.0-47.0) % MCV 85.4 (80.0-98.0) fL MCH 28.9 (27.0-33.0) pg MCHC 33.9 (31.0-35.0) g/dl RDW 13.1 (11.0-16.0) % Plt Count 255 (160-400) X10*3/uL MPV 10.0 (9.4-12.3) fL Immature Gran % (Auto) 0.2 (0.0-0.4) % Neut % (Auto) 60.1 (45-73) % Lymph % (Auto) 28.1 (20-40) % [place] % (Auto) 8.7 (2-11) % Eos % (Auto) 2.5 (0-4) % Baso % (Auto) 0.4 (0-2) % Lymph # (Auto) 1.5 (1.2-4.9) X10*3/uL [place] # (Auto) 0.5 (0.1-1.2) X10*3/uL Eos # (Auto) 0.1 (0.0-0.4) X10*3/uL Baso # (Auto) 0.0 (0.0-0.2) X10*3/uL Abs Immat Gran (auto) 0.01 (0.00-0.03) X10*3/uL Absolute Neuts (auto) 3.1 (2.0-8.3) x10*3/uL Absolute Nucleated RBC 0.000 (0.0-0.012) X10*3/uL Nucleated RBC % (auto) 0.0 (0.0-0.2) /100WBC PT 12.1 (11.1-13.3) SEC INR 1.0 (0.9-1.1) Sodium 144 (135-145) mmol/L Potassium 3.6 (3.3-5.1) mmol/L Chloride 107 (96-108) mmol/L Carbon Dioxide 25 (22-29) mmol/L Anion Gap 16 (12-20) BUN 11 (9-16) mg/dL Creatinine 0.61 (0.5-1.4) mg/dL Estim Creat Clear Calc 126.0 Estimated GFR > 60 Random Glucose 154 H (60-115) mg/dL Calcium 9.5 (8.4-10.2) mg/dL Total Bilirubin 1.6 H (0.0-1.0) mg/dL AST 15 (5-31) U/L ALT 13 (0-31) U/L Alkaline Phosphatase 102 (39-117) U/L Troponin I High Sens < 2.7 (<3.5-17.0) ng/L Total Protein 7.0 (6.5-8.0) g/dL Albumin 4.0 (3.5-5.0) g/dL Urine Color Yellow Urine Appearance Clear Urine pH 6.5 (5.0-9.0) Ur Specific [place] 1.015 (1.005-1.025) Urine Protein Negative (Neg-Trace) mg/dL Urine Glucose (UA) Negative (Negative) mg/dL Urine Ketones Negative (Negative) mg/dL Urine Blood Negative (Negative) Urine Nitrite Negative (Negative) Ur Leukocyte Esterase Small (1+) H (Negative) Urine RBC 0-2 (0-2) /HPF Urine WBC 11-20 H (0-5) /HPF Ur Squamous Epith Cells 3-5 (0-2) /HPF Urine Bacteria 4+ (None Seen) Hyaline Casts 0-2 (0-2) /LPF Discharge Plan Discharge Clinical Impression: A-fib Patient Disposition: Admitted As Inpatient Interventions: Admission Worksheet (ED) Last Done: 08/21/23 12:15 Discharge Date/Time: 08/21/23 12:16
[2023-08-20 14:00] LABS: MANUAL DIFF FLAG NO
[2023-08-20 14:01] LABS: Basophils Percent Auto 0.4 % (0-2); Eosinophils Absolute Auto 0.1 X10*3/uL (0.0-0.4); Eosinophils Percent Auto 2.5 % (0-4); Hematocrit 44.6 % (37.0-47.0); Hemoglobin 15.1 g/dl (12.0-16.0); Imm Gran Abs Auto 0.01 X10*3/uL (0.00-0.03); Imm Gran Pct Auto 0.2 % (0.0-0.4); Lymphocytes Absolute Auto 1.5 X10*3/uL (1.2-4.9); Lymphocytes Percent Auto 28.1 % (20-40); Mean Corpuscular HGB Conc 33.9 g/dl (31.0-35.0); Mean Corpuscular Hemoglobin 28.9 pg (27.0-33.0); Mean Corpuscular Volume 85.4 fL (80.0-98.0); Monocytes Absolute Auto 0.5 X10*3/uL (0.1-1.2); Monocytes Percent Auto 8.7 % (2-11); Neutrophils Absolute Auto 3.1 x10*3/uL (2.0-8.3); Neutrophils Percent Auto 60.1 % (45-73); Platelet Count 255 X10*3/uL (160-400); Red Blood Count 5.22 X10*6/uL (4.20-5.50); Red Cell Distribution Width 13.1 % (11.0-16.0); White Blood Count 5.2 X10*3/uL (4.8-10.8)
[2023-08-20 14:08] LABS: Prothrombin Time 12.1 SEC (11.1-13.3)
[2023-08-20 14:17] LABS: Alanine Aminotransferase 13 U/L (0-31); Alkaline Phosphatase 102 U/L (39-117); Anion Gap 16 (12-20); Aspartate Amino Transferase 15 U/L (5-31); Bilirubin Total 1.6 mg/dL (0.0-1.0); Blood Urea Nitrogen 11 mg/dL (9-16); Calcium 9.5 mg/dL (8.4-10.2); Carbon Dioxide 25 mmol/L (22-29); Chloride 107 mmol/L (96-108); Estimated Glomerular Filt Rate > 60; Glucose Random 154 mg/dL (60-115); Potassium 3.6 mmol/L (3.3-5.1); Sodium 144 mmol/L (135-145)
[2023-08-20 14:25] LABS: Troponin-I High Sensitivity < 2.7 ng/L (<3.5-17.0)
--- NOTE | 2023-08-20 15:21 | ED.ARRPALP ---
HPI - Arrhythmia/Palpitations General Chief Complaint: Arrhythmia/Palpitations Stated Complaint: afib Time Seen by Provider: 08/20/23 14:06 History of Present Illness HPI narrative: Patient is a 67-year-old female with a history of paroxysmal AFib. Currently on sotalol. Also on Eliquis. Presented today with having not feeling well. Patient could not sleep. Had palpitation. Family checked her heart rate was elevated. Patient was sent to the emergency department for further evaluation. Baseline patient is on Lasix. On sotalol 120 mg twice a day. No diaphoresis no chest pain. Related Data Home Medications Medication Instructions Recorded Confirmed paroxetine HCl 30 mg tablet 45 mg PO DAILY 10/01/20 08/17/23 mecobalamin (vitamin B12) 5,000 5,000 mcg PO MOWEFR@1000 08/06/22 08/17/23 mcg disintegrating tablet rosuvastatin 10 mg tablet 10 mg PO BEDTIME 08/06/22 08/17/23 omeprazole 20 mg capsule,delayed 20 mg PO DAILY@0630 10/14/22 08/17/23 release sotalol 240 mg tablet 120 mg PO BID 04/02/23 08/17/23 semaglutide 0.25 mg or 0.5 mg (2 0.25 mg subcut QWEEK 05/25/23 08/17/23 mg/3 mL) subcutaneous pen injector ([employer]) Previous Rx's Medication Instructions Recorded cholecalciferol (vitamin D3) 25 25 mcg PO DAILY #30 caps 09/17/20 mcg (1,000 unit) capsule multivitamin 1 tab PO DAILY #30 tabs 09/17/20 omega-3 fatty acids 1,250 mg 1,250 mg PO DAILY #30 caps 09/17/20 capsule albuterol sulfate 90 mcg/actuation 2 puff inhalation Q4-6H PRN 10/29/21 aerosol inhaler (ProAir HFA) shortness of breath or wheezing 30 days #8.5 grams apixaban 5 mg tablet (Eliquis) 5 mg PO BID 90 days #180 tabs 09/03/22 furosemide 40 mg tablet (Lasix) 40 mg PO DAILY 90 days #90 tabs 02/12/23 budesonide-formoterol HFA 160 2 puff PO Q12H #10.2 ea 05/12/23 mcg-4.5 mcg/actuation aerosol inhaler (Symbicort) valsartan 320 mg tablet 320 mg PO DAILY #90 tabs 08/17/23 Allergies Allergy/AdvReac Type Severity Reaction Status Date / Time adhesive tape [ADHESIVE TAPE] Allergy Intermediate BLISTERS Verified 08/17/23 13:07 Review of Systems Review of Systems: Positive generalized malaise. Positive palpitation Yes all other systems are reviewed and are negative PMFSH Past Medical History Attestation statement: The following information was validated with the patient. Medical History History of cardioversion GERD (gastroesophageal reflux disease) Bronchitis Asthma exacerbation PAF (paroxysmal atrial fibrillation) MDD (major depressive disorder) HTN (hypertension) Post covid-19 condition, unspecified Morbid obesity JIMBO on CPAP Bronchial asthma Surgical History History of cardioversion Anal fistula Hx of laparoscopic gastric banding History of hysterectomy for cancer H/O umbilical hernia repair History of cholecystectomy H/O colonoscopy Social History Social History Household Members: Spouse Housing: House Do you presently have visiting nurse or other home services: No Alcohol intake: never Patient Tobacco Use Status: Former Tobacco user Quit Date: 25 yrs ago Tobacco use type: Cigarette Years Smoked: 25 +/- Second Hand Smoke Exposure: No Advance Directives: Yes Advance Directives on File: Yes Advance Directives Date on File: 12/25/22 service: No Current occupational status: unemployed Physical Exam Vital Signs: Vital Signs: Last Vital Signs Temp 98.3 F 08/20/23 13:41 Pulse 122 H 08/20/23 16:02 Resp 15 08/20/23 16:02 BP 144/80 H 08/20/23 16:02 Pulse Ox 96 08/20/23 14:09 O2 Del Method Room Air 08/20/23 16:02 BMI result Body Mass Index 57.6 Appearance: Alert. Oriented X3. No acute distress. Eyes: Pupils equal, round and reactive to light. ENT: Pharynx normal. Neck: Normal inspection. Neck supple. No lymph nodes noted. No crepitus CVS: Irregularly irregular tachycardic Respiratory: No respiratory distress. Breath sounds normal. No Wheezing. No rales Abdomen: Soft and nontender. No rigidity. No distention. good BS x4 Skin: Skin warm and dry. Normal skin color. Normal skin turgor. Extremities: No lower extremity edema. Neurovascular intact to all extremities. No Lacerations. No Rash Neuro: Oriented X 3. No motor deficit. No sensory deficit. Moving all extermities. No slurred speech Medications Administered Discontinued Medications Generic Name Dose Route Start Last Admin Trade Name Freq PRN Reason Stop Dose Admin Metoprolol Tartrate 5 mg 08/20/23 15:20 08/20/23 15:41 Metoprolol Tartrate 5 Mg/5 Ml Vial IVPUSH 08/20/23 15:21 5 mg ONCE ONE Administration Metoprolol Tartrate 5 mg 08/20/23 15:47 08/20/23 16:05 Metoprolol Tartrate 5 Mg/5 Ml Vial IVPUSH 08/20/23 15:48 5 mg ONCE ONE Administration Medical Decision Making Medical Decision Making [facility] Narrative: My interpretation patient's EKG showed an atrial fibrillation pattern heart rate is approximately 140 QRS QTC within normal limits is no acute ST segment elevation. Patient's AFib rate is not controlled. Baseline is on sotalol. Given metoprolol 5 mg IV x3 doses. Heart rate is still approximately 110. Will discuss with Cardiology about admission observation. Patient's hemoglobin is 15 there is no evidence for anemia. Troponin is less than 2.7 despite having atrial fibrillation for at least 12 hours. No signs of ischemia. My interpretation patient's chest x-ray was grossly negative for any acute infiltrate. I reviewed radiology's reading. Patient to be admitted for further evaluation Differential Diagnosis Differential Diagnoses: The differential diagnosis associated with the presentation includes Atrial fibrillation Admission/Observation Consideration of admission/observation: Escalation of care including admission/observation considered Consult Healthcare Provider Management of the patient was discussed with: Hospitalist and Financial Services Counselor (Environmental Services Technician) Lab Data [facility] Lab Attestation statement: I reviewed the patient's lab results. 08/20/23 13:56 08/20/23 13:56 Labs: Lab Results 08/20/23 Range/Units 13:56 WBC 5.2 (4.8-10.8) X10*3/uL RBC 5.22 (4.20-5.50) X10*6/uL Hgb 15.1 (12.0-16.0) g/dl Hct 44.6 (37.0-47.0) % MCV 85.4 (80.0-98.0) fL MCH 28.9 (27.0-33.0) pg MCHC 33.9 (31.0-35.0) g/dl RDW 13.1 (11.0-16.0) % Plt Count 255 (160-400) X10*3/uL MPV 10.0 (9.4-12.3) fL Immature Gran % (Auto) 0.2 (0.0-0.4) % Neut % (Auto) 60.1 (45-73) % Lymph % (Auto) 28.1 (20-40) % [place] % (Auto) 8.7 (2-11) % Eos % (Auto) 2.5 (0-4) % Baso % (Auto) 0.4 (0-2) % Lymph # (Auto) 1.5 (1.2-4.9) X10*3/uL [place] # (Auto) 0.5 (0.1-1.2) X10*3/uL Eos # (Auto) 0.1 (0.0-0.4) X10*3/uL Baso # (Auto) 0.0 (0.0-0.2) X10*3/uL Abs Immat Gran (auto) 0.01 (0.00-0.03) X10*3/uL Absolute Neuts (auto) 3.1 (2.0-8.3) x10*3/uL Absolute Nucleated RBC 0.000 (0.0-0.012) X10*3/uL Nucleated RBC % (auto) 0.0 (0.0-0.2) /100WBC PT 12.1 (11.1-13.3) SEC INR 1.0 (0.9-1.1) Sodium 144 (135-145) mmol/L Potassium 3.6 (3.3-5.1) mmol/L Chloride 107 (96-108) mmol/L Carbon Dioxide 25 (22-29) mmol/L Anion Gap 16 (12-20) BUN 11 (9-16) mg/dL Creatinine 0.61 (0.5-1.4) mg/dL Estim Creat Clear Calc 126.0 Estimated GFR > 60 Random Glucose 154 H (60-115) mg/dL Calcium 9.5 (8.4-10.2) mg/dL Total Bilirubin 1.6 H (0.0-1.0) mg/dL AST 15 (5-31) U/L ALT 13 (0-31) U/L Alkaline Phosphatase 102 (39-117) U/L Troponin I High Sens < 2.7 (<3.5-17.0) ng/L Total Protein 7.0 (6.5-8.0) g/dL Albumin 4.0 (3.5-5.0) g/dL Independent Interpretation I performed an independent interpretation of an: EKG (Atrial fibrillation heart rate is approximately 140 there is no acute ST segment elevation noted.) and Plain X-Ray (Chest x-ray showed no focal infiltrate.) Radiology Impression Discussion of test interpretation with radiology: I have reviewed the radiologist's reading. Independent Historian Additional history obtained through patient's daughter External Record Review External record reviewed: Office record Outpatient cardiology records Chronic Conditions Congestive heart failure, hypertension, atrial fibrillation Critical Care Time Critical Care Time Critical Care Time: Yes Total Critical Care Time: 40 Attestation: I have personally provided 40 minutes of critical care time exclusive of time spent on separately billable procedures. Time includes review of lab data, radiology results, discussion with consultants, and monitoring for potential decompensation. Interventions were performed as documented above Discharge Plan Discharge Clinical Impression: A-fib Patient Disposition: Admitted As Inpatient
--- NOTE | 2023-08-20 18:42 | PM.IMHP ---
History of Present Illness Date of Service: 08/20/23 Attending physician on admission: Yue Lawler Chief Complaint: palpitations 67-year-old female with history of [id number] type 2 diabetes, paroxysmal atrial fibrillation anticoagulated with Eliquis with history of failed cardioversion now on sotalol, moderate persistent asthma, hypertension, major depressive disorder, JIMBO compliant with CPAP, and morbid obesity with BMI greater than 57 presented to the ED earlier today for evaluation of of palpitations with heart rates noted to be up to 150 at home. She states she has also been feeling generally unwell with increased reflux/regurgitation last night. She also reports urinary incontinence at baseline as well as dyspnea on exertion at baseline and chronic orthopnea. She denies any fevers, chills, upper respiratory symptoms, abdominal pain, nausea, vomiting, diarrhea, dysuria, hematuria, increased urinary frequency, worsening shortness of breath, lightheadedness, or chest pain. In the ED, has been tachycardic ranging from 120-150 and hypertensive to 168/104 with blood pressure 144/90 on admission. Hematology studies unremarkable. Renal function normal, electrolyte levels normal. Troponin undetectable. Urinalysis with 1+ leukocytes In the ED given IV metoprolol 5mg x3 without much improvement in heart rate. Review of Systems Review of Systems: General: No fevers, malaise, unintentional weight loss HEENT: No blurred vision, diplopia. No sore throat, nasal congestion, rhinorrhea, sinus pain, ear pain Cardiovascular: +palpitations. No chest pain or leg edema Respiratory: +mendoza, +orthopnea. No worsening shortness of breath, wheezing, cough GI: No abdominal pain, nausea, vomiting, diarrhea, constipation, melena, hematochezia : +urinary incontinence. No dysuria, hematuria, increased urinary frequency, decreased urinary output MSK: No myalgia, back pain Neuro: No headaches, weakness, paresthesias Skin: No rashes or lesions [facility] Medical History History of cardioversion GERD (gastroesophageal reflux disease) Bronchitis Asthma exacerbation PAF (paroxysmal atrial fibrillation) MDD (major depressive disorder) HTN (hypertension) Post covid-19 condition, unspecified Morbid obesity JIMBO on CPAP Bronchial asthma Surgical History History of cardioversion Anal fistula Hx of laparoscopic gastric banding History of hysterectomy for cancer H/O umbilical hernia repair History of cholecystectomy H/O colonoscopy Social History Household Members: Spouse Housing: House Do you presently have visiting nurse or other home services: No Alcohol intake: never Patient Tobacco Use Status: Former Tobacco user Quit Date: 25 yrs ago Tobacco use type: Cigarette Years Smoked: 25 +/- Second Hand Smoke Exposure: No Advance Directives: Yes Advance Directives on File: Yes Advance Directives Date on File: 12/25/22 service: No Current occupational status: unemployed Meds Allergies Allergy/AdvReac Type Severity Reaction Status Date / Time adhesive tape [ADHESIVE TAPE] Allergy Intermediate BLISTERS Verified 08/17/23 13:07 Active Medications: Current Medications Acetaminophen (Acetaminophen 325 Mg Tablet) 650 mg PO Q6H PRN PRN Reason: Pain, Mild (Pain Scale 1-3) Docusate Sodium (Docusate Sodium 100 Mg Capsule) 100 mg PO DAILY PRN PRN Reason: Constipation Diltiazem HCl 125 mg/ Sodium (Chloride) 125 mls @ 0 mls/hr IVCONT .Q0M CANDY; Protocol Ceftriaxone Sodium 1 gm/ (Sodium Chloride) 50 mls @ 100 mls/hr IV Q24H CANDY Ondansetron HCl (Ondansetron Hcl 4 Mg/2 Ml Vial) 4 mg IVPUSH Q8H PRN PRN Reason: Nausea and Vomiting Sodium Chloride (0.9 % Sodium Chloride Flush 3 Ml Syringe) 3 ml IVFLUSH QSHIFT CANDY Home Medications Medication Instructions Recorded Confirmed Last Taken Type paroxetine HCl 30 mg tablet 45 mg PO DAILY 10/01/20 08/20/23 08/20/23 History mecobalamin (vitamin B12) 5,000 5,000 mcg PO MOWEFR@1000 08/06/22 08/20/23 08/19/23 History mcg disintegrating tablet rosuvastatin 10 mg tablet 10 mg PO DAILY 08/06/22 08/20/23 08/20/23 History omeprazole 20 mg capsule,delayed 20 mg PO DAILY@0630 10/14/22 08/20/23 08/19/23 History release sotalol 240 mg tablet 120 mg PO BID 05/08/20/23 08/20/23 History semaglutide 0.25 mg or 0.5 mg (2 0.25 mg subcut TU 05/25/23 08/20/23 08/18/23 History mg/3 mL) subcutaneous pen injector (Ozempic) Physical Exam Vital Signs and Narrative: Vital Signs: Last Vital Signs Temp 98.3 F 08/20/23 13:41 Pulse 120 H 08/20/23 18:10 Resp 12 08/20/23 18:10 BP 144/90 H 08/20/23 18:10 Pulse Ox 96 08/20/23 14:09 O2 Del Method Room Air 08/20/23 16:02 BMI result Body Mass Index 57.6 Constitutional - Awake and Alert, No apparent distress Eyes - PERRLA, EOMI Cardiovascular - S1S2, irregularly irregular, tachycardic, No edema Respiratory - Normal lung expansion, Normal respiratory effort, No respiratory distress, CTA bilaterally Gastrointestinal - NT / ND; +BS; No rebound or guarding Extremities - no calf tenderness bilaterally, no swelling Skin - Warm/Dry Neurological - Alert & oriented x3 Psychological - Appropriate affect Results Labs 08/21/23 05:11 08/21/23 05:11 Labs: Laboratory Results - last 24 hr 08/20/23 08/20/23 13:56 18:13 MCV 85.4 MCH 28.9 MCHC 33.9 RDW 13.1 Plt Count 255 MPV 10.0 Immature Gran % (Auto) 0.2 Neut % (Auto) 60.1 Lymph % (Auto) 28.1 [place] % (Auto) 8.7 Eos % (Auto) 2.5 Baso % (Auto) 0.4 Lymph # (Auto) 1.5 [place] # (Auto) 0.5 Eos # (Auto) 0.1 Baso # (Auto) 0.0 Abs Immat Gran (auto) 0.01 Absolute Neuts (auto) 3.1 Absolute Nucleated RBC 0.000 Nucleated RBC % (auto) 0.0 PT 12.1 INR 1.0 Anion Gap 16 Estim Creat Clear Calc 126.0 Estimated GFR > 60 Random Glucose 154 H Calcium 9.5 Total Bilirubin 1.6 H AST 15 ALT 13 Alkaline Phosphatase 102 Total Protein 7.0 Albumin 4.0 Urine Color Yellow Urine Appearance Clear Urine pH 6.5 Ur Specific [place] 1.015 Urine Protein Negative Urine Glucose (UA) Negative Urine Ketones Negative Urine Blood Negative Urine Nitrite Negative Ur Leukocyte Esterase Small (1+) H Imaging Radiologist's Impressions: Impressions Chest X-Ray 08/20/23 14:05 IMPRESSION: Unremarkable chest examination. No change from 04/02/2023 Assessment and Plan (1) Atrial fibrillation with rapid ventricular response: Status: Acute Plan 67-year-old female with history of [id number] type 2 diabetes, paroxysmal atrial fibrillation anticoagulated with Eliquis with history of failed cardioversion now on sotalol, moderate persistent asthma, hypertension, major depressive disorder, JIMBO compliant with CPAP, and morbid obesity with BMI greater than 57 admitted for atrial fibrillation with RVR. # paroxysmal atrial fibrillation with RVR -HR's ranging 120-150 in ED. Hx failed cardioversion. Now on sotalol -Initiate cardizem drip per protocol -continue Eliquis for anticoagulation -cardiac diet -last echocardiogram 01/08 showing normal LV systolic function without obvious regional wall motion abnormality with EF 60-65% -cardiology consult -will keep NPO after midnight in case of cardioversion tomorrow #asymptomatic bacteriuria -has urinary incontinence at baseline -Given afib with rvr, will empirically treat with IV ceftriaxone (initiated 08/20) -Follow cultures # tsu-kfhacvc-utoddwwlv type 2 diabetes -POC glucose -diabetic diet -Humalog on sliding scale # moderate persistent asthma -no acute exacerbation -continue maintenance inhalers, albuterol p.r.n. # hypertension -blood pressure reasonably controlled on admission -continue sotalol, valsartan # JIMBO -CPAP at bedtime # major depressive disorder -continue Paxil # morbid obesity with BMI greater than 57 -on semaglutide weekly, following with weight management -weight loss efforts encouraged DVT prophylaxis-on Eliquis Full code Patient requires inpatient stay at least 2 midnights for management of atrial fibrillation with RVR on Cardizem drip per protocol Time Spent With Patient Time: Total time managing care of this patient today ____ minutes. Quality Stroke Does the patient have a stroke diagnosis?: No VTE Prior VTE?: No VTE Risk Level:: Medical - moderate - high VTE Device Contraindication: Treatment Not Indicated VTE Drug Contraindication: N/A - Med Ordered
--- NOTE | 2023-08-20 19:15 | PHA.MEDREC ---
Pharmacy Consult ? Medication Reconciliation Pharmacy has completed the medication reconciliation. Patient confirmed medications. Vernell Lockhart, AnalyD
--- NOTE | 2023-08-20 20:02 | PC.NURSE ---
pt oob with 1 max assist to the bathroom tolerated well
[2023-08-21] VITALS (11 sets, daily range): BP systolic 101–151; BP diastolic 58–92; PULSE 58–113; RESP 12–20; TEMP 35.7–36.6; O2SAT 94–98
--- NOTE | 2023-08-21 00:33 | PC.NURSE ---
pt tolerating c-pap machine
--- NOTE | 2023-08-21 09:03 | PM.CNCAR ---
History of Present Illness History of Present Illness Date of Service: 08/21/23 Chief complaint: afib w/ rvr Narrative: This is a cardiology consultation regarding atrial fibrillation. Patient is generally seen by Dr. Clifford in our clinic. Apparently, she has had numerous cardioversions, about 4 or so per patient. She was also seen by EP but because of her weight was not considered to be suitable for cardioversion. Otherwise, has failed flecainide in the past and at some point has also been on amiodarone. Current admission is because of palpitations since yesterday. According to patient, it suddenly started. Then found to be in atrial fibrillation with rapid rate. Her current regimen includes sotalol 120 mg b.i.d. and she states she is taking it regularly without issues. Weight is still on the higher side. Remains on anticoagulation and she states she does not miss any doses. Review of Systems Review of Systems: Yes all other systems are reviewed and are negative Constitutional: Constitutional: Reports as per HPI and Reports no additional constitutional complaints Eyes: Eyes: Reports as per HPI and Denies no additional eye complaints ENT: Denies system reviewed and no additional complaints, except as documented and Reports as per HPI Cardiovascular: Cardiovascular: Reports as per HPI, Reports no additional cardiovascular complaints, Denies acrocyanosis, Denies cool extremities, Denies chest pain, Denies leg edema, Denies lightheadedness, Reports palpitations and Denies dyspnea Respiratory: Respiratory: Reports as per HPI, Denies no additional respiratory complaints and Denies dyspnea Gastrointestinal: Gastrointestinal: Reports as per HPI and Denies no additional gastrointestinal complaints Genitourinary: Genitourinary: Reports as per HPI Musculoskeletal: Musculoskeletal: Reports no additional musculoskeletal complaints and Reports as per HPI Integumentary/Breasts: Skin/Breast: Reports system reviewed and no additional complaints, except as docu Neurologic: Reports system reviewed and no additional complaints, except as documented and Reports as per HPI Psychiatric: Psychiatric: Reports no additional psychiatric complaints and Reports as per HPI Endocrine: Endocrine: Reports no additional endocrine complaints, Reports as per HPI and Reports palpitations Hematologic/Lymphatic: Hematologic/Lymphatic: Reports no additional hematologic/lymphatic complaints and Reports as per HPI Allergic/Immunologic: Allergic/Immunologic: Reports no additional allergic/immunologic complaints and Reports as per HPI [facility] Past Medical History Medical History History of cardioversion GERD (gastroesophageal reflux disease) Bronchitis Asthma exacerbation PAF (paroxysmal atrial fibrillation) MDD (major depressive disorder) HTN (hypertension) Post covid-19 condition, unspecified Morbid obesity JIMBO on CPAP Bronchial asthma Family History Pertinent family history: No significant past medical history pertinent to the current admission. Surgical History Surgical History History of cardioversion Anal fistula Hx of laparoscopic gastric banding History of hysterectomy for cancer H/O umbilical hernia repair History of cholecystectomy H/O colonoscopy Social History Social History Household Members: Spouse Housing: House Do you presently have visiting nurse or other home services: No Alcohol intake: never Patient Tobacco Use Status: Former Tobacco user Quit Date: 25 yrs ago Tobacco use type: Cigarette Years Smoked: 25 +/- Second Hand Smoke Exposure: No Advance Directives: Yes Advance Directives on File: Yes Advance Directives Date on File: 12/25/22 service: No Current occupational status: unemployed Meds Allergies Allergy/AdvReac Type Severity Reaction Status Date / Time adhesive tape [ADHESIVE TAPE] Allergy Intermediate BLISTERS Verified 08/17/23 13:07 Active Medications: Current Medications Acetaminophen (Acetaminophen 325 Mg Tablet) 650 mg PO Q6H PRN PRN Reason: Pain, Mild (Pain Scale 1-3) Albuterol Sulfate (Albuterol Sulfate 90 Mcg 8 Gm Inhaler) 2 puff INHALE Q4H PRN PRN Reason: shortness of breath or wheezing Apixaban (Apixaban 5 Mg Tablet) 5 mg PO BID [facility] Last Admin: 08/20/23 21:14 Dose: 5 mg Atorvastatin Calcium (Atorvastatin Calcium 40 Mg Tablet) 40 mg PO DAILY [facility] Cyanocobalamin (Cyanocobalamin (Vitamin B-12) 1,000 Mcg Tablet) 5,000 mcg PO MOWEFR@1000 [facility] Docusate Sodium (Docusate Sodium 100 Mg Capsule) 100 mg PO DAILY PRN PRN Reason: Constipation Fluticasone/Vilanterol (Fluticasone/Vilanterol 200/25 Blst.W.Dev) 1 puff INHALE RDAILY [facility] Furosemide (Furosemide 40 Mg Tablet) 40 mg PO DAILY [facility]; Protocol Diltiazem HCl 125 mg/ Sodium (Chloride) 125 mls @ 0 mls/hr IVCONT .Q0M [facility]; Protocol Last Admin: 08/20/23 19:01 Dose: 10 mg/hr, 10 mls/hr Ceftriaxone Sodium 1 gm/ (Sodium Chloride) 50 mls @ 100 mls/hr IV Q24H [facility] Last Infusion: 08/20/23 21:44 Dose: Infused Multivitamins/Vitamin C (Multivitamin Tablet) 1 tab PO DAILY [facility] Omeprazole (Omeprazole 20 Mg Capsule.Dr) 20 mg PO DAILY@06 [facility] Last Admin: 08/21/23 06:19 Dose: 20 mg Ondansetron HCl (Ondansetron Hcl 4 Mg/2 Ml Vial) 4 mg IVPUSH Q8H PRN PRN Reason: Nausea and Vomiting Paroxetine HCl (Paroxetine Hcl 30 Mg Tablet) 45 mg PO DAILY [facility] Sodium Chloride (0.9 % Sodium Chloride Flush 3 Ml Syringe) 3 ml IVFLUSH QSHIFT [facility] Last Admin: 08/21/23 00:09 Dose: Not Given Sotalol HCl (Sotalol Hcl 120 Mg Tablet) 120 mg PO BID [facility] Last Admin: 08/20/23 21:08 Dose: 120 mg Valsartan (Valsartan 320 Mg Tablet) 320 mg PO DAILY [facility]; Protocol Vitamin D (Cholecalciferol (Vitamin D3) 25 Mcg Tablet) 25 mcg PO DAILY [facility] Home Medications Medication Instructions Recorded Confirmed Last Taken Type paroxetine HCl 30 mg tablet 45 mg PO DAILY 10/01/20 08/20/23 08/20/23 History mecobalamin (vitamin B12) 5,000 5,000 mcg PO MOWEFR@1000 08/06/22 08/20/23 08/19/23 History mcg disintegrating tablet rosuvastatin 10 mg tablet 10 mg PO DAILY 08/06/22 08/20/23 08/20/23 History omeprazole 20 mg capsule,delayed 20 mg PO DAILY@0630 10/14/22 08/20/23 08/19/23 History release sotalol 240 mg tablet 120 mg PO BID 04/02/23 08/20/23 08/20/23 History semaglutide 0.25 mg or 0.5 mg (2 0.25 mg subcut TU 05/25/23 08/20/23 08/18/23 History mg/3 mL) subcutaneous pen injector (Ozempic) Physical Exam Vital Signs: Vital Signs: Last Vital Signs Temp 97.6 F 08/21/23 06:04 Pulse 92 08/21/23 06:04 Resp 13 08/21/23 06:04 BP 101/79 08/21/23 06:04 Pulse Ox 96 08/21/23 06:04 O2 Del Method CPAP 08/21/23 06:04 BMI result Body Mass Index 57.6 Const: General: comfortable and no acute distress Orientation/consciousness: patient oriented x3 HEENT: Other: Unremarkable Head: Yes normal to inspection Neck: Neck: Yes normal visual inspection Chest: Chest palpation & inspection: normal inspection of the chest Resp: Auscultation: clear to auscultation bilaterally Cardio: Palpation: normal PMI Heart sounds: S1 normal heart sound present, S2 normal heart sound present, no gallops, no murmurs and no rubs GI: Palpation (GI): Soft to palpation Back/Spine/Pelvis: Other: unremarkable Skin: General skin exam: no rashes or lesions noted Neuro: General: patient oriented x3 Extrem: General: Yes normal to inspection Psych: Mental Status: mental status grossly normal Objective Labs and Meds 08/21/23 05:11 08/21/23 05:11 Lab results: Laboratory Results - last 24 hr 08/20/23 08/20/23 08/21/23 13:56 18:13 05:11 WBC 5.2 8.3 RBC 5.22 4.97 Hgb 15.1 14.5 Hct 44.6 44.4 MCV 85.4 89.3 MCH 28.9 29.2 MCHC 33.9 32.7 RDW 13.1 13.3 Plt Count 255 167 D MPV 10.0 11.3 Immature Gran % (Auto) 0.2 0.4 Neut % (Auto) 60.1 54.1 Lymph % (Auto) 28.1 34.6 [place] % (Auto) 8.7 8.8 Eos % (Auto) 2.5 1.6 Baso % (Auto) 0.4 0.5 Lymph # (Auto) 1.5 2.9 [place] # (Auto) 0.5 0.7 Eos # (Auto) 0.1 0.1 Baso # (Auto) 0.0 0.0 Abs Immat Gran (auto) 0.01 0.03 Absolute Neuts (auto) 3.1 4.5 Absolute Nucleated RBC 0.000 0.000 Nucleated RBC % (auto) 0.0 0.0 PT 12.1 INR 1.0 Sodium 144 146 H Potassium 3.6 3.9 Chloride 107 108 Carbon Dioxide 25 24 Anion Gap 16 18 BUN 11 12 Creatinine 0.61 0.65 Estim Creat Clear Calc 126.0 118.2 Estimated GFR > 60 > 60 Random Glucose 154 H 115 Calcium 9.5 9.5 Total Bilirubin 1.6 H AST 15 ALT 13 Alkaline Phosphatase 102 Troponin I High Sens < 2.7 Total Protein 7.0 Albumin 4.0 Urine Color Yellow Urine Appearance Clear Urine pH 6.5 Ur Specific [place] 1.015 Urine Protein Negative Urine Glucose (UA) Negative Urine Ketones Negative Urine Blood Negative Urine Nitrite Negative Ur Leukocyte Esterase Small (1+) H Urine RBC 0-2 Urine WBC 11-20 H Ur Squamous Epith Cells 3-5 Urine Bacteria 4+ Hyaline Casts 0-2 ECG Interpretation: EKG with atrial fibrillation at a rate of 139/Min with nonspecific ST-T changes. Imaging Radiologist's impression: Impressions Chest X-Ray 08/20/23 14:05 IMPRESSION: Unremarkable chest examination. No change from 04/02/2023 Assessment and Plan (1) Atrial fibrillation with rapid ventricular response: Status: Acute Plan EKG shows atrial fibrillation rapid ventricular rate. Current regimen includes sotalol 120 mg b.i.d. as well as Eliquis 5 mg b.i.d.. Patient states she has taken anticoagulation without any interruption. High sensitivity troponin within normal limits. Stable renal function. As she is highly symptomatic from the atrial fibrillation, we will proceed with cardioversion today. Discussed with patient and she is agreeable. We will also reach out to EP regarding consideration of ablation in spite of the fact that she is obese as otherwise she keeps having recurrent admissions for the same reason. Time Spent With Patient Time: Total time managing care of this patient today ____ minutes. Procedures Date of Service Date of Service: 08/21/23
--- NOTE | 2023-08-21 09:46 | PC.NURSE ---
pt reported experiencing hives on her L arm above the IV site, pt said it started last night after IV was started, slight itchiness at the time but now resolved, rash remains. IV is patent.
--- NOTE | 2023-08-21 10:56 | PC.NURSE ---
report given to short stay for 1230 procedure, and given to maintenance mechanic telephone. awaitng pharmacy to deliver medications before stopping IV. HR ranging from 80s-90s at this this
--- NOTE | 2023-08-21 13:59 | HO.ANESPROP2 ---
[facility] Active Problems Active Problems: All Active Problems (Updated 08/20/23 @ 17:05 by Harper Rogers MD) Atrial fibrillation with rapid ventricular response (Acute) A-fib (Acute) PAF (paroxysmal atrial fibrillation) (Acute) COVID-19 (Acute) Chest pain (Acute) CHRISTIANSEN (dyspnea on exertion) (Acute) Chronic diastolic heart failure (Acute) Atrial fibrillation, rapid (Acute) Elevated TSH (Acute) Bronchitis (Acute) Asthma exacerbation (Acute) MDD (major depressive disorder) (Acute) HTN (hypertension) (Acute) Post covid-19 condition, unspecified (Acute) Morbid obesity (Acute) JIMBO on CPAP (Acute) Bronchial asthma (Acute) Past Medical History Medical History History of cardioversion GERD (gastroesophageal reflux disease) Bronchitis Asthma exacerbation PAF (paroxysmal atrial fibrillation) MDD (major depressive disorder) HTN (hypertension) Post covid-19 condition, unspecified Morbid obesity JIMBO on CPAP Bronchial asthma Family History Family history of problems with anesthesia: No Surgical History Surgical History History of cardioversion Anal fistula Hx of laparoscopic gastric banding History of hysterectomy for cancer H/O umbilical hernia repair History of cholecystectomy H/O colonoscopy History of Problems with Anesthesia: No (See above. Surgery for gall bladder was in the 1980s. No problems with anesthesia since) Social History Social History Household Members: Spouse Housing: House Do you presently have visiting nurse or other home services: No Alcohol intake: never Patient Tobacco Use Status: Former Tobacco user Quit Date: 1992 Tobacco use type: Cigarette Years Smoked: 25 +/- Second Hand Smoke Exposure: No Advance Directives Date on File: 12/25/22 service: No Current occupational status: unemployed Meds Allergies Allergy/AdvReac Type Severity Reaction Status Date / Time adhesive tape [ADHESIVE TAPE] Allergy Intermediate BLISTERS Verified 08/21/23 12:44 Active Medications: Current Medications Acetaminophen (Acetaminophen 325 Mg Tablet) 650 mg PO Q6H PRN PRN Reason: Pain, Mild (Pain Scale 1-3) Albuterol Sulfate (Albuterol Sulfate 90 Mcg 8 Gm Inhaler) 2 puff INHALE Q4H PRN PRN Reason: shortness of breath or wheezing Apixaban (Apixaban 5 Mg Tablet) 5 mg PO BID [facility] Last Admin: 08/21/23 09:32 Dose: 5 mg Atorvastatin Calcium (Atorvastatin Calcium 40 Mg Tablet) 40 mg PO DAILY [facility] Last Admin: 08/21/23 09:31 Dose: 40 mg Cyanocobalamin (Cyanocobalamin (Vitamin B-12) 1,000 Mcg Tablet) 5,000 mcg PO MOWEFR@1000 [facility] Last Admin: 08/21/23 09:31 Dose: 5,000 mcg Docusate Sodium (Docusate Sodium 100 Mg Capsule) 100 mg PO DAILY PRN PRN Reason: Constipation Fluticasone/Vilanterol (Fluticasone/Vilanterol 200/25 Blst.W.Dev) 1 puff INHALE RDAILY [facility] Last Admin: 08/21/23 09:23 Dose: Not Given Furosemide (Furosemide 40 Mg Tablet) 40 mg PO DAILY [facility]; Protocol Last Admin: 08/21/23 09:31 Dose: 40 mg Diltiazem HCl 125 mg/ Sodium (Chloride) 125 mls @ 0 mls/hr IVCONT .Q0M [facility]; Protocol Last Titration: 08/21/23 11:20 Dose: Infused Ceftriaxone Sodium 1 gm/ (Sodium Chloride) 50 mls @ 100 mls/hr IV Q24H [facility] Last Infusion: 08/20/23 21:44 Dose: Infused Multivitamins/Vitamin C (Multivitamin Tablet) 1 tab PO DAILY [facility] Last Admin: 08/21/23 09:31 Dose: 1 tab Omeprazole (Omeprazole 20 Mg Capsule.Dr) 20 mg PO DAILY@0630 [facility] Last Admin: 08/21/23 06:19 Dose: 20 mg Ondansetron HCl (Ondansetron Hcl 4 Mg/2 Ml Vial) 4 mg IVPUSH Q8H PRN PRN Reason: Nausea and Vomiting Paroxetine HCl (Paroxetine Hcl 30 Mg Tablet) 45 mg PO DAILY [facility] Last Admin: 08/21/23 11:19 Dose: 45 mg Sodium Chloride (0.9 % Sodium Chloride Flush 3 Ml Syringe) 3 ml IVFLUSH QSHIFT [facility] Last Admin: 08/21/23 09:51 Dose: Not Given Sotalol HCl (Sotalol Hcl 120 Mg Tablet) 120 mg PO BID [facility] Last Admin: 08/21/23 11:20 Dose: 120 mg Valsartan (Valsartan 320 Mg Tablet) 320 mg PO DAILY [facility]; Protocol Last Admin: 08/21/23 09:32 Dose: 320 mg Vitamin D (Cholecalciferol (Vitamin D3) 25 Mcg Tablet) 25 mcg PO DAILY [facility] Last Admin: 08/21/23 09:31 Dose: 25 mcg Home Medications Medication Instructions Recorded Confirmed Last Taken Type paroxetine HCl 30 mg tablet 45 mg PO DAILY 10/01/20 08/20/23 08/20/23 History mecobalamin (vitamin B12) 5,000 5,000 mcg PO MOWEFR@1000 08/06/22 08/20/23 08/19/23 History mcg disintegrating tablet rosuvastatin 10 mg tablet 10 mg PO DAILY 08/06/22 08/20/23 08/20/23 History omeprazole 20 mg capsule,delayed 20 mg PO DAILY@0630 10/14/22 08/20/23 08/19/23 History release sotalol 240 mg tablet 120 mg PO BID 04/02/23 08/20/23 08/20/23 History semaglutide 0.25 mg or 0.5 mg (2 0.25 mg subcut TU 05/25/23 08/20/23 08/18/23 History mg/3 mL) subcutaneous pen injector (Ozempic) Exam Exam Date and Time: August 21, 2023 1359 Height,Weight and Vital Signs: Height 5 ft 3 in Weight 147.418 kg Last Vital Signs Temp 97.2 F 08/21/23 12:51 Pulse 113 H 08/21/23 12:51 Resp 16 08/21/23 12:51 BP 151/82 H 08/21/23 12:51 Pulse Ox 96 08/21/23 12:51 O2 Del Method Room Air 08/21/23 12:51 Pertinent Lab Results Pertinent Lab Results: Laboratory Tests 08/20/23 08/20/23 08/21/23 13:56 18:13 05:11 WBC 5.2 8.3 RBC 5.22 4.97 Hgb 15.1 14.5 Hct 44.6 44.4 MCV 85.4 89.3 MCH 28.9 29.2 MCHC 33.9 32.7 RDW 13.1 13.3 Plt Count 255 167 D MPV 10.0 11.3 Immature Gran % (Auto) 0.2 0.4 Neut % (Auto) 60.1 54.1 Lymph % (Auto) 28.1 34.6 [place] % (Auto) 8.7 8.8 Eos % (Auto) 2.5 1.6 Baso % (Auto) 0.4 0.5 Lymph # (Auto) 1.5 2.9 [place] # (Auto) 0.5 0.7 Eos # (Auto) 0.1 0.1 Baso # (Auto) 0.0 0.0 Abs Immat Gran (auto) 0.01 0.03 Absolute Neuts (auto) 3.1 4.5 Absolute Nucleated RBC 0.000 0.000 Nucleated RBC % (auto) 0.0 0.0 PT 12.1 INR 1.0 Sodium 144 146 H Potassium 3.6 3.9 Chloride 107 108 Carbon Dioxide 25 24 Anion Gap 16 18 BUN 11 12 Creatinine 0.61 0.65 Estim Creat Clear Calc 126.0 118.2 Estimated GFR > 60 > 60 Random Glucose 154 H 115 Calcium 9.5 9.5 Total Bilirubin 1.6 H AST 15 ALT 13 Alkaline Phosphatase 102 Troponin I High Sens < 2.7 Total Protein 7.0 Albumin 4.0 Urine Color Yellow Urine Appearance Clear Urine pH 6.5 Ur Specific [place] 1.015 Urine Protein Negative Urine Glucose (UA) Negative Urine Ketones Negative Urine Blood Negative Urine Nitrite Negative Ur Leukocyte Esterase Small (1+) H Urine RBC 0-2 Urine WBC 11-20 H Ur Squamous Epith Cells 3-5 Urine Bacteria 4+ Hyaline Casts 0-2 Airway Mallampati Class: III TM Dist: >3cm Neck ROM: Full Loose/Missing/Broken Teeth: Yes, Upper and Lower Assessment and Plan Assessment Anesthesia Assessment: Anesthesia Plan Discussed and Chart Reviewed Final Anesthetic Review Family History of Problems with Anesthesia: No History of Problems with Anesthesia: No (See above. Surgery for gall bladder was in the 1980s. No problems with anesthesia since) NPO: Yes ASA Class: III and Emergency Final Preanesthetic Review: No Changes in Pt Med Stat, Meds/Allgs Chart Reviewed, Consent Obtained/Reviewed and Anes Risks/Benef Reviewed Patient Risk: High Procedure Risk: Low Anesthetic Plan Anesthetic Plan: GA Disposition: Standard PACU
--- NOTE | 2023-08-21 14:01 | HO.CARDIVERS ---
Cardioversion Procedure Note Cardioversion Date of Procedure: 08/21/2023 Ordering Provider: Dr. Martínez Performing Provider: Dr. Martínez Indication for Procedure: Atrial fibrillation with rapid ventricular rate Pre-Op Diagnosis: Atrial fibrillation rapid ventricular rate Post-Op Diagnosis: Sinus rhythm [place] findings (if CAM[place] Performed): Not performed History: See full consultation Consent: Informed consent obtained. Procedure: After informed consent was obtained, patient was taken to the PACU. The patient was then positioned appropriately. The cardioversion pads were placed in anteroposterior position. Once under anesthesia, 120 joules of synchronized shock was administered. The rhythm converted from atrial fibrillation to sinus rhythm. Patient remained in sinus rhythm after the end of procedure. Complications: None. Impression: Successful cardioversion from atrial fibrillation rapid rate to sinus rhythm. Recommendations: Increase sotalol dose to 160 mg b.i.d.. To stay in the hospital for 5 doses for monitoring.
--- NOTE | 2023-08-21 14:01 | MHC.SHP ---
Pre-Procedural Eval Section A Date of Service: 08/21/23 The patient is an INPATIENT: Yes Section B Chief Complaint: afib w/ rvr Allergies: Allergies Allergy/AdvReac Type Severity Reaction Status Date / Time adhesive tape [ADHESIVE TAPE] Allergy Intermediate BLISTERS Verified 08/21/23 12:44 Plan I have reviewed the history and physical and performed a pertinent physical examination on my patient. No changes have occurred unless specified. Time Spent With Patient Time: Total time managing care of this patient today ____ minutes.
--- NOTE | 2023-08-21 17:58 | HO.PM.IMPN ---
Subjective Subjective Date of Service: 08/21/23 Interval History: Palpitations Review of Systems Patient denies any chest pain or shortness of breath or fever or chills. Physical Exam Vital Signs: Vital Signs: Last Vital Signs Temp 96.2 F L 08/21/23 16:16 Pulse 59 08/21/23 16:16 Resp 18 08/21/23 16:16 BP 134/87 08/21/23 16:16 Pulse Ox 96 08/21/23 16:16 O2 Del Method Room Air 08/21/23 16:16 O2 Flow Rate 2 08/21/23 14:25 BMI result Body Mass Index 57.6 Appearance: Alert.? Oriented X3.? not in distress.? cvs: irregular rythem, [id number] . res: clear to auscultation ,no rhonchii or wheezing abd: no rebound or guarding ,nt, bs present. ext pulses present , no cyanosis . neuro: axo3 , nonfocal. Objective Data Active Medications Acetaminophen (Acetaminophen 325 Mg Tablet) 650 mg PO Q6H PRN PRN Reason: Pain, Mild (Pain Scale 1-3) Albuterol Sulfate (Albuterol Sulfate 90 Mcg 8 Gm Inhaler) 2 puff INHALE Q4H PRN PRN Reason: shortness of breath or wheezing Apixaban (Apixaban 5 Mg Tablet) 5 mg PO BID [facility] Last Admin: 08/21/23 09:32 Dose: 5 mg Documented By: YOLANDA Atorvastatin Calcium (Atorvastatin Calcium 40 Mg Tablet) 40 mg PO DAILY [facility] Last Admin: 08/21/23 09:31 Dose: 40 mg Documented By: YOLANDA Cyanocobalamin (Cyanocobalamin (Vitamin B-12) 1,000 Mcg Tablet) 5,000 mcg PO MOWEFR@1000 [facility] Last Admin: 08/21/23 09:31 Dose: 5,000 mcg Documented By: YOLANDA Docusate Sodium (Docusate Sodium 100 Mg Capsule) 100 mg PO DAILY PRN PRN Reason: Constipation Fluticasone/Vilanterol (Fluticasone/Vilanterol 200/25 Blst.W.Dev) 1 puff INHALE RDAILY [facility] Last Admin: 08/21/23 09:23 Dose: Not Given Documented By: KENNA Non-Admin Reason: Med Not Available Furosemide (Furosemide 40 Mg Tablet) 40 mg PO DAILY [facility]; Protocol Last Admin: 08/21/23 09:31 Dose: 40 mg Documented By: YOLANDA Ceftriaxone Sodium 1 gm/ (Sodium Chloride) 50 mls @ 100 mls/hr IV Q24H [facility] Last Infusion: 08/20/23 21:44 Dose: Infused Documented By: RUBÉN Multivitamins/Vitamin C (Multivitamin Tablet) 1 tab PO DAILY [facility] Last Admin: 08/21/23 09:31 Dose: 1 tab Documented By: YOLANDA Omeprazole (Omeprazole 20 Mg Capsule.Dr) 20 mg PO DAILY@0630 [facility] Last Admin: 08/21/23 06:19 Dose: 20 mg Documented By: RUBÉN Ondansetron HCl (Ondansetron Hcl 4 Mg/2 Ml Vial) 4 mg IVPUSH Q8H PRN PRN Reason: Nausea and Vomiting Paroxetine HCl (Paroxetine Hcl 30 Mg Tablet) 45 mg PO DAILY [facility] Last Admin: 08/21/23 11:19 Dose: 45 mg Documented By: JAMIR Sodium Chloride (0.9 % Sodium Chloride Flush 3 Ml Syringe) 3 ml IVFLUSH QSHIFT [facility] Last Admin: 08/21/23 09:51 Dose: Not Given Documented By: PEPE Non-Admin Reason: See Note Sotalol HCl (Sotalol Hcl 80 Mg Tablet) 160 mg PO BID [facility] Valsartan (Valsartan 320 Mg Tablet) 320 mg PO DAILY [facility]; Protocol Last Admin: 08/21/23 09:32 Dose: 320 mg Documented By: YOLANDA Vitamin D (Cholecalciferol (Vitamin D3) 25 Mcg Tablet) 25 mcg PO DAILY [facility] Last Admin: 08/21/23 09:31 Dose: 25 mcg Documented By: YOLANDA Labs 08/21/23 05:11 08/21/23 05:11 Labs: Laboratory Results - last 24 hr 08/20/23 08/21/23 08/21/23 18:13 05:11 16:31 MCV 89.3 MCH 29.2 MCHC 32.7 RDW 13.3 Plt Count 167 D MPV 11.3 Immature Gran % (Auto) 0.4 Neut % (Auto) 54.1 Lymph % (Auto) 34.6 Real % (Auto) 8.8 Eos % (Auto) 1.6 Baso % (Auto) 0.5 Lymph # (Auto) 2.9 Real # (Auto) 0.7 Eos # (Auto) 0.1 Baso # (Auto) 0.0 Abs Immat Gran (auto) 0.03 Absolute Neuts (auto) 4.5 Absolute Nucleated RBC 0.000 Nucleated RBC % (auto) 0.0 Anion Gap 18 Estim Creat Clear Calc 118.2 Estimated GFR > 60 Random Glucose 115 Calcium 9.5 Magnesium 2.0 Urine Color Yellow Urine Appearance Clear Urine pH 6.5 Ur Specific [place] 1.015 Urine Protein Negative Urine Glucose (UA) Negative Urine Ketones Negative Urine Blood Negative Urine Nitrite Negative Ur Leukocyte Esterase Small (1+) H Urine RBC 0-2 Urine WBC 11-20 H Ur Squamous Epith Cells 3-5 Urine Bacteria 4+ Hyaline Casts 0-2 Microbiology Microbiology Results: Microbiology 08/20/23 Unknown Urine Culture - Preliminary Urine clean catch - Urine rodriguez top Gram negative henrry Assessment and Plan (1) A-fib: Status: Acute Plan 67-year-old female with history of [id number] type 2 diabetes, paroxysmal atrial fibrillation anticoagulated with Eliquis with history of failed cardioversion now on sotalol, moderate persistent asthma, hypertension, major depressive disorder, JIMBO compliant with CPAP, and morbid obesity with BMI greater than 57 admitted for atrial fibrillation with RVR. paroxysmal atrial fibrillation with RVR HR's on admission was 120-150 in ED. Hx failed cardioversion. started on cardizem drip ,also on sotalol, Eliquis for anticoagulation last echocardiogram 01/08 showing normal LV systolic function without obvious regional wall motion abnormality with EF 60-65% cardiology consult-wis/p cardioversion today,off cardizem drip,now in sinus rythem in 60's ,sotalol adjusted 160 mg bid.moniter ekg 's as per protocol. next ekg will be@10 pm (after 1 hour of evening sotalol dose which is at 9 pm). asymptomatic bacteriuria-has urinary incontinence at baseline urine culture -gram neg henrry. empirically treat with IV ceftriaxone (initiated 08/20) [id number] type 2 diabetes -POC glucose -diabetic diet -Humalog on sliding scale moderate persistent asthma -no acute exacerbation -continue maintenance inhalers, albuterol p.r.n. hypertension -blood pressure reasonably controlled on admission -continue sotalol, valsartan JIMBO -CPAP at bedtime major depressive disorder -continue Paxil morbid obesity with BMI greater than 57 -on semaglutide weekly, following with weight management -weight loss efforts encouraged DVT prophylaxis-on Eliquis Full code ongoing inpatient : atrial fibrillation with RVR o s/p cardioversion -on sotalol adjustment program -moniter ekg 's as per protocol. Time Spent With Patient Time: Total time managing care of this patient today ____ minutes. Quality Stroke Does the patient have a stroke diagnosis?: No VTE Prior VTE?: No VTE Risk Level:: Medical - moderate - high VTE Device Contraindication: Treatment Not Indicated VTE Drug Contraindication: N/A - Med Ordered
[2023-08-22] VITALS (8 sets, daily range): BP systolic 117–147; BP diastolic 60–78; PULSE 50–68; RESP 16–20; TEMP 36.1–37.1; O2SAT 93–97
[2023-08-22 07:03] LABS: Anion Gap 16 (12-20); Blood Urea Nitrogen 13 mg/dL (9-16); Calcium 9.3 mg/dL (8.4-10.2); Carbon Dioxide 25 mmol/L (22-29); Chloride 106 mmol/L (96-108); Creatinine Clr Calc Pharmacy 118.2; Estimated Glomerular Filt Rate > 60; Glucose Random 99 mg/dL (60-115); Magnesium 1.9 mg/dL (1.6-2.6); Potassium 3.6 mmol/L (3.3-5.1); Sodium 143 mmol/L (135-145)
--- NOTE | 2023-08-22 08:48 | MHC.CM.PN ---
CM met with Patient at bedside and addressed IMM with her, providing Patient with the original and placing a copy on the chart. Patient lives in a house with her /HCP/Naren and she uses a cane to assist with mobility. Home/self care is the goal and CM has initiated and will follow for dc planning. PCP is Dr. Ang Bernstein.
--- NOTE | 2023-08-22 11:02 | PM.PNCARD ---
Subjective Subjective Date of Service: 08/22/23 Interval history: Patient states she feels fine. Review of Systems Review of Systems Yes all other systems are reviewed and are negative Constitutional: Reports as per HPI and Reports no additional constitutional complaints Eyes: Reports as per HPI and Denies no additional eye complaints Denies system reviewed and no additional complaints, except as documented and Reports as per HPI Cardiovascular: Reports as per HPI, Reports no additional cardiovascular complaints, Denies acrocyanosis, Denies cool extremities, Denies chest pain, Denies leg edema, Denies lightheadedness, Denies palpitations and Denies dyspnea Respiratory: Reports as per HPI, Denies no additional respiratory complaints and Denies dyspnea Gastrointestinal: Reports as per HPI and Denies no additional gastrointestinal complaints Genitourinary: Reports as per HPI Musculoskeletal: Reports no additional musculoskeletal complaints and Reports as per HPI Skin/Breast: Reports system reviewed and no additional complaints, except as docu Reports system reviewed and no additional complaints, except as documented and Reports as per HPI Psychiatric: Reports no additional psychiatric complaints and Reports as per HPI Endocrine: Reports no additional endocrine complaints, Reports as per HPI and Denies palpitations Hematologic/Lymphatic: Reports no additional hematologic/lymphatic complaints and Reports as per HPI Allergic/Immunologic: Reports no additional allergic/immunologic complaints and Reports as per HPI Physical Exam Vital Signs: Last Vital Signs Temp 97.3 F 08/22/23 07:23 Pulse 54 08/22/23 07:23 Resp 20 08/22/23 07:23 BP 147/78 H 08/22/23 07:23 Pulse Ox 96 08/22/23 07:23 O2 Del Method Room Air 08/22/23 07:23 O2 Flow Rate 2 08/21/23 14:25 BMI result Body Mass Index 57.6 Const General: comfortable and no acute distress Orientation/consciousness: patient oriented x3 HEENT Other: Unremarkable Head: Yes normal to inspection Neck Neck: Yes normal visual inspection Chest Chest palpation & inspection: normal inspection of the chest Resp Auscultation: clear to auscultation bilaterally Cardio Palpation: normal PMI Heart sounds: S1 normal heart sound present, S2 normal heart sound present, no gallops, no murmurs and no rubs GI Palpation (GI): Soft to palpation Back/Spine/Pelvis Other: unremarkable Skin General skin exam: no rashes or lesions noted Neuro General: patient oriented x3 Extrem General: Yes normal to inspection Psych Mental Status: mental status grossly normal Objective Labs and Meds 08/21/23 05:11 08/22/23 06:10 Lab results: Laboratory Results - last 24 hr 08/21/23 08/22/23 08/22/23 16:31 06:10 07:25 Hold Purple Top SEE NOTE Sodium 143 Potassium 3.6 Chloride 106 Carbon Dioxide 25 Anion Gap 16 BUN 13 Creatinine 0.65 Estim Creat Clear Calc 118.2 Estimated GFR > 60 POC Glucose 97 Random Glucose 99 Calcium 9.3 Magnesium 2.0 1.9 Progress Note: A&P Assessment and plan (1) Atrial fibrillation with rapid ventricular response: Status: Acute (2) Encounter for monitoring sotalol therapy: Status: Acute Plan Yesterday, she underwent cardioversion. Converted from atrial fibrillation to sinus rhythm. Discussed with [facility] [place] electrophysiology. Sotalol dose has been increased from 120 mg b.i.d. to 160 mg b.i.d.. QT intervals are looking okay. Will need to monitor for 1 more day and then likely discharge tomorrow. After that, will need to follow-up with EP regarding ablation. Time Spent With Patient Time: Total time managing care of this patient today ____ minutes. Progress Note: Quality Stroke Does the patient have a stroke diagnosis?: No Procedures Date of Service Date of Service: 08/22/23
--- NOTE | 2023-08-22 13:21 | HO.PM.IMPN ---
Subjective Subjective Date of Service: 08/22/23 Interval History: afib with rvr Review of Systems no chest pain or sob or dizziness Physical Exam Vital Signs: Vital Signs: Last Vital Signs Temp 97.1 F 08/22/23 11:06 Pulse 56 08/22/23 11:06 Resp 20 08/22/23 11:06 BP 117/68 08/22/23 11:06 Pulse Ox 96 08/22/23 11:06 O2 Del Method Room Air 08/22/23 11:06 O2 Flow Rate 2 08/21/23 14:25 BMI result Body Mass Index 57.6 Appearance: Alert.? Oriented X3.? not in distress.? cvs: irregular rythem, [id number] . res: clear to auscultation ,no rhonchii or wheezing abd: no rebound or guarding ,nt, bs present. ext pulses present , no cyanosis . neuro: axo3 , nonfocal. Objective Data Active Medications Acetaminophen (Acetaminophen 325 Mg Tablet) 650 mg PO Q6H PRN PRN Reason: Pain, Mild (Pain Scale 1-3) Albuterol Sulfate (Albuterol Sulfate 90 Mcg 8 Gm Inhaler) 2 puff INHALE Q4H PRN PRN Reason: shortness of breath or wheezing Apixaban (Apixaban 5 Mg Tablet) 5 mg PO BID [facility] Last Admin: 08/22/23 08:42 Dose: 5 mg Documented By: MAUREEN Atorvastatin Calcium (Atorvastatin Calcium 40 Mg Tablet) 40 mg PO DAILY [facility] Last Admin: 08/22/23 08:42 Dose: 40 mg Documented By: MAUREEN Cyanocobalamin (Cyanocobalamin (Vitamin B-12) 1,000 Mcg Tablet) 5,000 mcg PO MOWEFR@1000 [facility] Last Admin: 08/21/23 09:31 Dose: 5,000 mcg Documented By: YOLANDA Dextrose (Dextrose 50 % 25 Gm/50 Ml Syringe) 25 gm IVPUSH Q15M PRN; Protocol PRN Reason: per Hypoglycemia Standing Ord. Docusate Sodium (Docusate Sodium 100 Mg Capsule) 100 mg PO DAILY PRN PRN Reason: Constipation Fluticasone/Vilanterol (Fluticasone/Vilanterol 200/25 Blst.W.Dev) 1 puff INHALE RDAILY [facility] Last Admin: 08/22/23 07:59 Dose: Not Given Documented By: FUNMILAYO Non-Admin Reason: pharmacy called Furosemide (Furosemide 40 Mg Tablet) 40 mg PO DAILY [facility]; Protocol Last Admin: 08/22/23 08:42 Dose: 40 mg Documented By: MAUREEN Glucose (Glucose Gel 15 Gm Gel..Gram.) 15 gm PO Q15M PRN; Protocol PRN Reason: per Hypoglycemia Standing Ord. Ceftriaxone Sodium 1 gm/ (Sodium Chloride) 50 mls @ 100 mls/hr IV Q24H [facility] Last Infusion: 08/21/23 22:35 Dose: Infused Documented By: DONNA Insulin Human Lispro (Insulin Lispro 100 Unit/Ml 3 Ml Vial) 0 unit SUBCUT QIDACHS [facility]; Protocol Last Admin: 08/22/23 11:36 Dose: Not Given Documented By: MAUREEN Non-Admin Reason: No Insulin Coverage Comments: per sliding scale Multivitamins/Vitamin C (Multivitamin Tablet) 1 tab PO DAILY [facility] Last Admin: 08/22/23 08:40 Dose: 1 tab Documented By: MAUREEN Omeprazole (Omeprazole 20 Mg Capsule.Dr) 20 mg PO DAILY@0630 [facility] Last Admin: 08/22/23 06:49 Dose: 20 mg Documented By: DONNA Ondansetron HCl (Ondansetron Hcl 4 Mg/2 Ml Vial) 4 mg IVPUSH Q8H PRN PRN Reason: Nausea and Vomiting Paroxetine HCl (Paroxetine Hcl 30 Mg Tablet) 45 mg PO DAILY [facility] Last Admin: 08/22/23 08:41 Dose: 45 mg Documented By: MAUREEN Sodium Chloride (0.9 % Sodium Chloride Flush 3 Ml Syringe) [facility] Last Admin: 08/22/23 08:43 Dose: 3 ml Documented By: MAUREEN Sotalol HCl (Sotalol Hcl 80 Mg Tablet) 160 mg PO BID [facility] Last Admin: 08/22/23 08:42 Dose: 160 mg Documented By: MAUREEN Valsartan (Valsartan 320 Mg Tablet) 320 mg PO DAILY [facility]; Protocol Last Admin: 08/22/23 08:41 Dose: 320 mg Documented By: MAUREEN Vitamin D (Cholecalciferol (Vitamin D3) 25 Mcg Tablet) 25 mcg PO DAILY [facility] Last Admin: 08/22/23 08:40 Dose: 25 mcg Documented By: MAUREEN Labs 08/21/23 05:11 08/22/23 06:10 Labs: Laboratory Results - last 24 hr 08/21/23 08/22/23 08/22/23 16:31 06:10 07:25 Hold Purple Top SEE NOTE Anion Gap 16 Estim Creat Clear Calc 118.2 Estimated GFR > 60 POC Glucose 97 Random Glucose 99 Calcium 9.3 Magnesium 2.0 1.9 08/22/23 11:07 Hold Purple Top Anion Gap Estim Creat Clear Calc Estimated GFR POC Glucose 105 Random Glucose Calcium Magnesium Microbiology Microbiology Results: Microbiology 08/20/23 Unknown Urine Culture - Final Urine clean catch - Urine rodriguez top Escherichia coli 08/20/23 20:50 Blood Culture - Preliminary Blood - Venous No growth after 24 hours. 08/20/23 20:49 Blood Culture - Preliminary Blood - Venous No growth after 24 hours. Assessment and Plan (1) Atrial fibrillation with rapid ventricular response: Status: Acute Plan 67-year-old female with history of [id number] type 2 diabetes, paroxysmal atrial fibrillation anticoagulated with Eliquis with history of failed cardioversion now on sotalol, moderate persistent asthma, hypertension, major depressive disorder, JIMBO compliant with CPAP, and morbid obesity with BMI greater than 57 admitted for atrial fibrillation with RVR. paroxysmal atrial fibrillation with RVR HR's on admission was 120-150 in ED. Hx failed cardioversion. started on cardizem drip ,also on sotalol, Eliquis for anticoagulation last echocardiogram 01/08 showing normal LV systolic function without obvious regional wall motion abnormality with EF 60-65% cardiology consult-s/p cardioversion today,off cardizem drip,now in sinus rythem in 60's ,sotalol adjusted 160 mg bid. qt look ok today,Will need to monitor for 1 more day moniter ekg 's as per protocol. next ekg will be@10 pm (after 1 hour of evening sotalol dose which is at 9 pm). asymptomatic bacteriuria-has urinary incontinence at baseline urine culture -gram neg henrry. empirically treat with IV ceftriaxone (initiated 08/20) [id number] type 2 diabetes -POC glucose -diabetic diet -Humalog on sliding scale moderate persistent asthma -no acute exacerbation -continue maintenance inhalers, albuterol p.r.n. hypertension -blood pressure reasonably controlled on admission -continue sotalol, valsartan JIMBO -CPAP at bedtime major depressive disorder -continue Paxil morbid obesity with BMI greater than 57 -on semaglutide weekly, following with weight management -weight loss efforts encouraged DVT prophylaxis-on Eliquis Full code ongoing inpatient : atrial fibrillation with RVR o s/p cardioversion -on sotalol adjustment program -moniter ekg 's as per protocol. Time Spent With Patient Time: Total time managing care of this patient today ____ minutes. Quality Stroke Does the patient have a stroke diagnosis?: No VTE Prior VTE?: No VTE Risk Level:: Medical - moderate - high VTE Device Contraindication: Treatment Not Indicated VTE Drug Contraindication: N/A - Med Ordered
[2023-08-23] VITALS (8 sets, daily range): BP systolic 131–145; BP diastolic 60–86; PULSE 56–65; RESP 12–20; TEMP 36.2–36.8; O2SAT 94–98
--- NOTE | 2023-08-23 10:06 | PM.PNCARD ---
Subjective Subjective Date of Service: 08/23/23 Interval history: She states she feels fine. No complaints from cardiac. Review of Systems Review of Systems Yes all other systems are reviewed and are negative Constitutional: Reports as per HPI and Reports no additional constitutional complaints Eyes: Reports as per HPI and Denies no additional eye complaints Denies system reviewed and no additional complaints, except as documented and Reports as per HPI Cardiovascular: Reports as per HPI, Reports no additional cardiovascular complaints, Denies acrocyanosis, Denies cool extremities, Denies chest pain, Denies leg edema, Denies lightheadedness, Denies palpitations and Denies dyspnea Respiratory: Reports as per HPI, Denies no additional respiratory complaints and Denies dyspnea Gastrointestinal: Reports as per HPI and Denies no additional gastrointestinal complaints Genitourinary: Reports as per HPI Musculoskeletal: Reports no additional musculoskeletal complaints and Reports as per HPI Skin/Breast: Reports system reviewed and no additional complaints, except as docu Reports system reviewed and no additional complaints, except as documented and Reports as per HPI Psychiatric: Reports no additional psychiatric complaints and Reports as per HPI Endocrine: Reports no additional endocrine complaints, Reports as per HPI and Denies palpitations Hematologic/Lymphatic: Reports no additional hematologic/lymphatic complaints and Reports as per HPI Allergic/Immunologic: Reports no additional allergic/immunologic complaints and Reports as per HPI Physical Exam Vital Signs: Last Vital Signs Temp 97.7 F 08/23/23 07:40 Pulse 56 08/23/23 07:48 Resp 18 08/23/23 07:48 BP 131/60 08/23/23 07:40 Pulse Ox 94 08/23/23 07:40 O2 Del Method CPAP 08/23/23 07:40 O2 Flow Rate 2 08/21/23 14:25 BMI result Body Mass Index 57.6 Const General: comfortable and no acute distress Orientation/consciousness: patient oriented x3 HEENT Other: Unremarkable Head: Yes normal to inspection Neck Neck: Yes normal visual inspection Chest Chest palpation & inspection: normal inspection of the chest Resp Auscultation: clear to auscultation bilaterally Cardio Palpation: normal PMI Heart sounds: S1 normal heart sound present, S2 normal heart sound present, no gallops, no murmurs and no rubs GI Palpation (GI): Soft to palpation Back/Spine/Pelvis Other: unremarkable Skin General skin exam: no rashes or lesions noted Neuro General: patient oriented x3 Extrem General: Yes normal to inspection Psych Mental Status: mental status grossly normal Objective Labs and Meds 08/21/23 05:11 08/22/23 06:10 Lab results: Laboratory Results - last 24 hr 08/22/23 08/22/23 08/22/23 11:07 16:00 19:59 Hold Purple Top POC Glucose 105 127 H 103 Calcium 08/23/23 08/23/23 05:59 07:42 Hold Purple Top SEE NOTE POC Glucose 98 Calcium 9.4 Progress Note: A&P Assessment and plan (1) Atrial fibrillation with rapid ventricular response: Status: Acute (2) Encounter for monitoring sotalol therapy: Status: Acute Plan Recurrent atrial fibrillation status post numerous cardioversions. Most recently done 2 days ago. Sotalol dose has been increased from 120 mg b.i.d. to 160 mg b.i.d. after discussing with [facility] electrophysiology. EKGs are being performed by protocol and there is an increase in corrected QT, most recently 489 milliseconds. However, it is also difficult to calculate as the T-wave amplitude is low and somewhat blends with the baseline ST segment. Overall, about 10% or so increase, but still less than 500 milliseconds. On telemetry, there is no evidence of ventricular ectopy or NSVT. Sinus rhythm only. May have to keep sotalol at the current dose at least for a short time till ablation performed. We will keep her another day in hospital and recheck EKG. Discussed with Dr. Sherwood. Time Spent With Patient Time: Total time managing care of this patient today ____ minutes. Progress Note: Quality Stroke Does the patient have a stroke diagnosis?: No Procedures Date of Service Date of Service: 08/23/23
--- NOTE | 2023-08-23 10:59 | HO.PM.IMPN ---
Subjective Subjective Date of Service: 08/23/23 Interval History: afib Review of Systems denies any c/o of chest pain or sob or dizziness Physical Exam Vital Signs: Vital Signs: Last Vital Signs Temp 97.7 F 08/23/23 07:40 Pulse 56 08/23/23 07:48 Resp 18 08/23/23 07:48 BP 131/60 08/23/23 07:40 Pulse Ox 94 08/23/23 07:40 O2 Del Method CPAP 08/23/23 07:40 O2 Flow Rate 2 08/21/23 14:25 BMI result Body Mass Index 57.6 Appearance: Alert.? Oriented X3.? not in distress.? cvs: irregular rythem, [id number] . res: clear to auscultation ,no rhonchii or wheezing abd: no rebound or guarding ,nt, bs present. ext pulses present , no cyanosis . neuro: axo3 , nonfocal. Objective Data Active Medications Acetaminophen (Acetaminophen 325 Mg Tablet) 650 mg PO Q6H PRN PRN Reason: Pain, Mild (Pain Scale 1-3) Albuterol Sulfate (Albuterol Sulfate 90 Mcg 8 Gm Inhaler) 2 puff INHALE Q4H PRN PRN Reason: shortness of breath or wheezing Apixaban (Apixaban 5 Mg Tablet) 5 mg PO BID [facility] Last Admin: 08/23/23 08:15 Dose: 5 mg Documented By: MAUREEN Atorvastatin Calcium (Atorvastatin Calcium 40 Mg Tablet) 40 mg PO DAILY [facility] Last Admin: 08/23/23 08:14 Dose: 40 mg Documented By: MAUREEN Cefuroxime Axetil (Cefuroxime Axetil 250 Mg Tablet) 250 mg PO BID [facility] Last Admin: 08/23/23 10:16 Dose: 250 mg Documented By: MAUREEN Cyanocobalamin (Cyanocobalamin (Vitamin B-12) 1,000 Mcg Tablet) 5,000 mcg PO MOWEFR@1000 [facility] Last Admin: 08/21/23 09:31 Dose: 5,000 mcg Documented By: YOLANDA Dextrose (Dextrose 50 % 25 Gm/50 Ml Syringe) 25 gm IVPUSH Q15M PRN; Protocol PRN Reason: per Hypoglycemia Standing Ord. Docusate Sodium (Docusate Sodium 100 Mg Capsule) 100 mg PO DAILY PRN PRN Reason: Constipation Fluticasone/Vilanterol (Fluticasone/Vilanterol 200/25 Blst.W.Dev) 1 puff INHALE RDAILY [facility] Last Admin: 08/23/23 07:47 Dose: 1 puff Documented By: FUNMILAYO Furosemide (Furosemide 40 Mg Tablet) 40 mg PO DAILY [facility]; Protocol Last Admin: 08/23/23 08:15 Dose: 40 mg Documented By: MAUREEN Glucose (Glucose Gel 15 Gm Gel..Gram.) 15 gm PO Q15M PRN; Protocol PRN Reason: per Hypoglycemia Standing Ord. Insulin Human Lispro (Insulin Lispro 100 Unit/Ml 3 Ml Vial) 0 unit SUBCUT QIDACHS [facility]; Protocol Last Admin: 08/23/23 08:39 Dose: Not Given Documented By: MAUREEN Non-Admin Reason: No Insulin Coverage Comments: per sliding scale Multivitamins/Vitamin C (Multivitamin Tablet) 1 tab PO DAILY [facility] Last Admin: 08/23/23 08:15 Dose: 1 tab Documented By: MAUREEN Omeprazole (Omeprazole 20 Mg Capsule.Dr) 20 mg PO DAILY@0630 [facility] Last Admin: 08/23/23 05:45 Dose: 20 mg Documented By: JAMES Ondansetron HCl (Ondansetron Hcl 4 Mg/2 Ml Vial) 4 mg IVPUSH Q8H PRN PRN Reason: Nausea and Vomiting Paroxetine HCl (Paroxetine Hcl 30 Mg Tablet) 45 mg PO DAILY [facility] Last Admin: 08/23/23 08:15 Dose: 45 mg Documented By: MAUREEN Sodium Chloride (0.9 % Sodium Chloride Flush 3 Ml Syringe) 3 ml IVFLUSH QSHIFT [facility] Last Admin: 08/23/23 08:18 Dose: 3 ml Documented By: MAUREEN Sotalol HCl (Sotalol Hcl 80 Mg Tablet) 160 mg PO BID [facility] Last Admin: 08/23/23 09:50 Dose: 160 mg Documented By: MAUREEN Valsartan (Valsartan 320 Mg Tablet) 320 mg PO DAILY [facility]; Protocol Last Admin: 08/23/23 08:15 Dose: 320 mg Documented By: MAUREEN Vitamin D (Cholecalciferol (Vitamin D3) 25 Mcg Tablet) 25 mcg PO DAILY [facility] Last Admin: 08/23/23 08:15 Dose: 25 mcg Documented By: MAUREEN Labs 08/21/23 05:11 08/22/23 06:10 Labs: Laboratory Results - last 24 hr 08/22/23 08/22/23 08/22/23 11:07 16:00 19:59 Hold Purple Top POC Glucose 105 127 H 103 Calcium 08/23/23 08/23/23 05:59 07:42 Hold Purple Top SEE NOTE POC Glucose 98 Calcium 9.4 Microbiology Microbiology Results: Microbiology 08/20/23 20:50 Blood Culture - Preliminary Blood - Venous No growth after 48 hours. 08/20/23 20:49 Blood Culture - Preliminary Blood - Venous No growth after 48 hours. 08/20/23 Unknown Urine Culture - Final Urine clean catch - Urine rodriguez top Escherichia coli Assessment and Plan (1) Encounter for monitoring sotalol therapy: Status: Acute (2) Atrial fibrillation with rapid ventricular response: Status: Acute Assessment and Plan: 67-year-old female with history of udn-gadfjrf-zmdvduffp type 2 diabetes, paroxysmal atrial fibrillation anticoagulated with Eliquis with history of failed cardioversion now on sotalol, moderate persistent asthma, hypertension, major depressive disorder, JIMBO compliant with CPAP, and morbid obesity with BMI greater than 57 admitted for atrial fibrillation with RVR. paroxysmal atrial fibrillation with RVR HR's on admission was 120-150 in ED. Hx failed cardioversion. received cardizem drip ,also on sotalol, Eliquis for anticoagulation last echocardiogram 01/08 showing normal LV systolic function without obvious regional wall motion abnormality with EF 60-65% cardiology consult-s/p cardioversion on 08/21/23,off cardizem drip,now in sinus rythem ,sotalol adjusted 160 mg bid. qt look 500's today . d/w cardiology -continue sotalol ,moniter ekg 's as per protocol. next ekg will be@10 pm . asymptomatic bacteriuria-has urinary incontinence at baseline urine culture -gram neg henrry. empirically treat with IV ceftriaxone (initiated 08/20) switched to po ceftin [id number]-[id number] type 2 diabetes -POC glucose -diabetic diet -Humalog on sliding scale moderate persistent asthma -no acute exacerbation -continue maintenance inhalers, albuterol p.r.n. hypertension -blood pressure reasonably controlled on admission -continue sotalol, valsartan JIMBO -CPAP at bedtime major depressive disorder -continue Paxil morbid obesity with BMI greater than 57 -on semaglutide weekly, following with weight management -weight loss efforts encouraged DVT prophylaxis-on Eliquis Full code ongoing inpatient : atrial fibrillation with RVR o s/p cardioversion -on sotalol adjustment program -moniter ekg 's as per protocol. Time Spent With Patient Time: Total time managing care of this patient today ____ minutes. Quality Stroke Does the patient have a stroke diagnosis?: No VTE Prior VTE?: No VTE Risk Level:: Medical - moderate - high VTE Device Contraindication: Treatment Not Indicated VTE Drug Contraindication: N/A - Med Ordered
--- NOTE | 2023-08-23 13:53 | HO.POSTANES ---
Post Anesthesia Evaluation Post Anesthesia Evaluation Date of Service: 08/21/23 Vital Signs: Vital Signs Temp Pulse Resp BP Pulse Ox O2 Del Method 08/23/23 11:18 97.5 F 57 20 137/76 96 Room Air 08/23/23 07:48 56 18 08/23/23 07:40 97.7 F 56 20 131/60 94 CPAP 08/23/23 04:00 97.1 F 56 20 144/67 H 97 CPAP Anesthesia: General Mental Status: Awake Pain Control: Satisfactory Nausea/Vomiting: None Hydration: Adequate Anesthesia-Related Issues: No Anes. Related Issues
[2023-08-24 04:00] VITALS: BP 151/78; PULSE 58; RESP 18; TEMP 36.6; O2SAT 96
[2023-08-24 06:58] VITALS: BP 120/51; PULSE 55; RESP 20; TEMP 36.1; O2SAT 96
[2023-08-24 08:15] VITALS: PULSE 60; RESP 16; O2SAT 96
[2023-08-24 11:26] VITALS: BP 122/76; PULSE 56; RESP 20; TEMP 36.4; O2SAT 97
--- NOTE | 2023-08-24 13:19 | PM.PNCARD ---
Subjective Subjective Date of Service: 08/26/23 Interval history: Seen and examined at bedside. In sinus rhythm. ECG showing QTc 470s msec. Physical Exam Vital Signs: Last Vital Signs Temp 97.5 F 08/24/23 11:26 Pulse 56 08/24/23 11:26 Resp 20 08/24/23 11:26 BP 122/76 08/24/23 11:26 Pulse Ox 97 08/24/23 11:26 O2 Del Method Room Air 08/24/23 11:26 O2 Flow Rate 2 08/21/23 14:25 BMI result Body Mass Index 57.6 GENERAL APPEARANCE: in no acute distress, pleasant. morbidly obese. NECK: no carotid bruit, no jugular venous distention. SKIN: no suspicious lesions, warm and dry. HEART: no murmurs, regular rhythm. LUNGS: clear to auscultation bilaterally. ABDOMEN: soft, nontender. EXTREMITIES: no edema. PERIPHERAL PULSES: equal. NEUROLOGIC: No gross deficits, AAO X 3 Objective Labs and Meds 08/21/23 05:11 08/22/23 06:10 Lab results: Laboratory Results - last 24 hr 08/23/23 08/23/23 08/24/23 16:33 20:16 07:01 Hold Purple Top POC Glucose 99 100 78 Calcium 08/24/23 08/24/23 08:02 11:46 Hold Purple Top SEE NOTE POC Glucose 136 H Calcium 9.1 Progress Note: A&P Assessment and plan (1) Encounter for monitoring sotalol therapy: Status: Acute (2) PAF (paroxysmal atrial fibrillation): Status: Acute Plan 67 female with morbid obesity and PAF. She has been cardioverted many times. On Sotalol and dosed was increased. She will be following with Dr Melo for discussion about ablation. Time Spent With Patient Time: Total time managing care of this patient today ____ minutes. Progress Note: Quality Stroke Does the patient have a stroke diagnosis?: No Procedures Date of Service Date of Service: 08/26/23
--- NOTE | 2023-08-24 13:32 | PM.DS ---
DS: Providers Provider Date of Service: 08/24/23 Date of admission: 08/20/23 18:39 Date of discharge: 08/24/23 Primary care physician: Ang Bernstein MD Consults: 08/20/23 18:39 Consult to Cardiology Routine Consulting Provider: [facility] Cardi[facility] Services Reason for consultation: afib rvr Attending physician on discharge: Dania Sherwood Discharging clinician: Dania Sherwood DS: Diagnosis Discharge Diagnosis (1) Encounter for monitoring sotalol therapy: Status: Acute (2) Atrial fibrillation with rapid ventricular response: Status: Acute DS: Summary Hospital Course Hospital Course: 67-year-old female with history of iny-xfirjcu-kuyolaiyz type 2 diabetes, paroxysmal atrial fibrillation anticoagulated with Eliquis with history of failed cardioversion now on sotalol, moderate persistent asthma, hypertension, major depressive disorder, JIMBO compliant with CPAP, and morbid obesity with BMI greater than 57 presented to the ED earlier today for evaluation of of palpitations with heart rates noted to be up to 150 at home. She states she has also been feeling generally unwell with increased reflux/regurgitation last night. She also reports urinary incontinence at baseline as well as dyspnea on exertion at baseline and chronic orthopnea. She denies any fevers, chills, upper respiratory symptoms, abdominal pain, nausea, vomiting, diarrhea, dysuria, hematuria, increased urinary frequency, worsening shortness of breath, lightheadedness, or chest pain. In the ED, has been tachycardic ranging from 120-150 and hypertensive to 168/104 with blood pressure 144/90 on admission. Hematology studies unremarkable. Renal function normal, electrolyte levels normal. Troponin undetectable. Urinalysis with 1+ leukocytes In the ED given IV metoprolol 5mg x3 without much improvement in heart rate. hospital course: Patient was admitted for AFib with RVR, has history of failed cardioversion-started on IV Cardizem drip, continued her home sotalol dose, and Eliquis: Subsequently seen by Cardiology-status post cardioversion, patient in sinus rhythm, cardiology recommended to adjust her sotalol dose to 160 mg p.o. b.i.d., sotalol protocols were followed, QT in 470 range. EKGs reviewed with cardiology. Patient was strongly advised to follow up outpatient with Cardiology for further management of her AFib. possible mild uti -received iv antiobiotics -take ceftin 250 mg po twice daily for 1 more day. Plan: Sotalol dose increased to 160 mg p.o. b.i.d. Follow-up with Cardiology outpatient. ceftin 250 mg po twice daily for 1 more day. Above management discussed with patient in detail and she understand and in agreement with the above plan, time spent 50 minute. Time Spent with Patient Time attestation: Total time managing care of this patient today ____ minutes. Discharge coordination time: Greater than 30 minutes Quality: Safe Use of Opioids Does Pt have an Active Cancer Diagnosis on the Problem List?: No Quality: Stroke Does the patient have a stroke diagnosis?: No Physical Exam Vital Signs: Vital Signs: Last Vital Signs Temp 97.5 F 08/24/23 11:26 Pulse 56 08/24/23 11:26 Resp 20 08/24/23 11:26 BP 122/76 08/24/23 11:26 Pulse Ox 97 08/24/23 11:26 O2 Del Method Room Air 08/24/23 11:26 O2 Flow Rate 2 08/21/23 14:25 BMI result Body Mass Index 57.6 Appearance: Alert.? Oriented X3.? not in distress.? cvs: irregular rythem, [id number] . res: clear to auscultation ,no rhonchii or wheezing abd: no rebound or guarding ,nt, bs present. ext pulses present , no cyanosis . neuro: axo3 , nonfocal. DS: Data Data Completed and Pending Completed studies during hospitalization [Text1]: Procedures Assistance with Respiratory Ventilation, Less than 24 Consecutive Hours, Continuous Positive Airway Pressure (07/23/22) Scientologist of Cardiac Rhythm, Single (04/02/23) Labs on day of discharge: Laboratory Results - last 24 hr 08/23/23 08/23/23 08/24/23 16:33 20:16 07:01 Hold Purple Top POC Glucose 99 100 78 Calcium 08/24/23 08/24/23 08:02 11:46 Hold Purple Top SEE NOTE POC Glucose 136 H Calcium 9.1 Preliminary micro results at discharge 08/20/23 20:50 Blood Culture - Preliminary Blood - Venous No growth after 48 hours. 08/20/23 20:49 Blood Culture - Preliminary Blood - Venous No growth after 48 hours. Imaging Chest x-ray: Radiologist's impression: ITS Impressions Chest X-Ray 08/20/23 14:05 IMPRESSION: Unremarkable chest examination. No change from 04/02/2023 Discharge Plan Discharge Anticipated Discharge Date/Time: 08/24/23 12:47 Patient Disposition: Home, Self-Care Discharge Diagnosis: afib Referrals: Ang Bernstein MD [Primary Care Provider] - 1 Week Discharge Medications: New cefuroxime axetil 250 mg Tablet 250 mg PO BID Qty: 2 0RF sotalol 80 mg Tablet 160 mg PO BID Qty: 120 0RF Continued cholecalciferol (vitamin D3) 25 mcg (1,000 unit) capsule 25 mcg PO DAILY Qty: 30 0RF multivitamin Tablet 1 tab PO DAILY Qty: 30 0RF omega-3 fatty acids 1,250 mg capsule 1,250 mg PO DAILY Qty: 30 0RF furosemide [Lasix] 40 mg tablet 40 mg PO DAILY 90 Days Qty: 90 3RF budesonide-formoterol [Symbicort] 160-4.5 mcg/actuation HFA aerosol inhaler 2 puff PO Q12H Qty: 10.2 3RF albuterol sulfate [ProAir HFA] 90 mcg/actuation HFA aerosol inhaler 2 puff inhalation Q4-6H PRN (Reason: shortness of breath or wheezing) 30 Days Qty: 8.5 3RF paroxetine HCl 30 mg tablet 45 mg PO DAILY mecobalamin (vitamin B12) 5,000 mcg tablet,disintegrating 5,000 mcg PO MOWEFR@1000 rosuvastatin 10 mg tablet 10 mg PO DAILY Eliquis 5 mg tablet 5 mg PO BID 90 Days Qty: 180 3RF omeprazole 20 mg capsule,delayed release(DR/EC) 20 mg PO DAILY@0630 Ozempic 0.25 mg or 0.5 mg (2 mg/3 mL) pen injector 0.25 mg subcut TU Rx Instructions: for 4 weeks valsartan 320 mg tablet 320 mg PO DAILY Qty: 90 3RF Discontinued sotalol 240 mg tablet 120 mg PO BID Discharge Orders: Discharge Order (Routine); Ordered 08/24/23 Ordered By: Dania Sherwood Diet: Advance to usual diet Activity on Discharge: As tolerated Stand Alone Forms: Patient Portal Discharge page Care Plan Goals: Patient was admitted for AFib with RVR, has history of failed cardioversion-started on IV Cardizem drip, continued her home sotalol dose, and Eliquis: Subsequently seen by Cardiology-status post cardioversion, patient in sinus rhythm, cardiology recommended to adjust her sotalol dose to 160 mg p.o. b.i.d., sotalol protocols were followed, QT in 470 range. EKGs reviewed with cardiology. Patient was strongly advised to follow up outpatient with Cardiology for further management of her AFib. possible mild uti -received iv antiobiotics -take ceftin 250 mg po twice daily for 1 more day. Plan: Sotalol dose increased to 160 mg p.o. b.i.d. Follow-up with Cardiology outpatient. ceftin 250 mg po twice daily for 1 more day Health Concerns: As above. Plan of Treatment: As above. Assessment: As above.
--- NOTE | 2023-08-24 13:35 | MHC.CM.PN ---
Patient has been medically cleared for dc to home today, self care.
== END 2023-08-24 14:31 | disposition home or self-care (01) | DRG 309 ==
LOC: HO.ED 17:05 → HO.EDOVER 19:03 → HO.IMC 08-21 08:38
PROVIDERS: Internal Medicine; Registered Nurse Emergency; Admitting Provider Physician Assistant; Emergency Provider Emergency Medicine Emergency Medical Services; PCP Internal Medicine; Visit Provider Internal Medicine
PROC: 5A2204Z Restoration of Cardiac Rhythm, Single (ICD-10-PCS; principal; 2023-08-21 14:30)
DX: I48.0 Paroxysmal atrial fibrillation (principal); Z68.43 Body mass index [BMI] 50.0-59.9, adult; F32.9 Major depressive disorder, single episode, unspecified; R32 Unspecified urinary incontinence; I10 Essential (primary) hypertension; E11.9 Type 2 diabetes mellitus without complications; J45.40 Moderate persistent asthma, uncomplicated; E66.01 Morbid (severe) obesity due to excess calories; G47.33 Obstructive sleep apnea (adult) (pediatric); Z79.01 Long term (current) use of anticoagulants; Z79.899 Other long term (current) drug therapy
CPT/HCPCS: 36415; 71046; 80048; 80053; 81001; 82310; 82947; 83735; 84484; 85025; 85610; 87040; 87086; 87088; 87186; 92960; 93005; 94640; 94660; 99212; 99285; J0696

== ENCOUNTER → 2023-08-20 18:39 | Outpatient (BNV) | payer MEDICARE, OTHER, SELFPAY | PROVIDERS: Admitting Provider Physician Assistant; Emergency Provider Emergency Medicine Emergency Medical Services; PCP Internal Medicine; Visit Provider Internal Medicine | DX: I48.91 Unspecified atrial fibrillation (principal); Z51.81 Encounter for therapeutic drug level monitoring; Z79.899 Other long term (current) drug therapy | CPT/HCPCS: 99223; 99232; 99239 ==

== ENCOUNTER → 2023-08-20 18:39 | Outpatient (BNV) | payer MEDICARE, OTHER, SELFPAY | PROVIDERS: Admitting Provider Physician Assistant; Emergency Provider Emergency Medicine Emergency Medical Services; PCP Internal Medicine; Visit Provider Internal Medicine | DX: I48.91 Unspecified atrial fibrillation (principal); Z51.81 Encounter for therapeutic drug level monitoring; Z79.899 Other long term (current) drug therapy | CPT/HCPCS: 92960; 99223; 99232; 99233 ==

== ENCOUNTER → 2023-09-01 14:23 | Outpatient (BNVA) | payer MEDICARE, OTHER, SELFPAY | PROVIDERS: PCP Internal Medicine; Visit Provider Internal Medicine ==

== ENCOUNTER 2024-03-14 14:07 | Outpatient (AMB) | payer MEDICARE, OTHER, SELFPAY ==
--- NOTE | 2024-03-14 14:15 | MHC.OFFVIS ---
Vital Signs 03/14/24 14:16 Height 5 ft 3 in Weight 311 lb 15.265 oz BMI 55.3 BP 110/80 Blood Pressure Location Lt brachial Position Sitting Pulse 86 Pulse Source Pulse Oximeter Pulse Oximetry (%) 97 Oxygen Delivery Method Room Air Intake Visit Reasons: Cough Intake Note: pt is here for follow up and states she is feeling okay and she is stable. Auto Inspector Required: No Allergies adhesive tape [ADHESIVE TAPE] Allergy (Intermediate, Verified 03/14/24 14:31) BLISTERS Medication List - Last Reconciled 03/14/24 by Han Aldridge MD albuterol sulfate 90 mcg/actuation (ProAir HFA) 2 puffs inhalation Q4-6H PRN 30 days apixaban (Eliquis) 5 mg PO BID cholecalciferol (vitamin D3) 25 mcg PO DAILY digoxin 125 mcg PO DAILY fluticasone furoate-vilanterol 200-25 mcg/dose (Breo Ellipta) 1 inh inhalation Q24H 30 days furosemide 40 mg PO DAILY mecobalamin (vitamin B12) 5,000 mcg PO MOWEFR@1000 metoprolol succinate ER 100 mg PO DAILY multivitamin 1 tab PO DAILY omega-3 fatty acids 1,250 mg PO DAILY omeprazole 20 mg PO DAILY@0630 paroxetine HCl 45 mg PO DAILY rosuvastatin 10 mg PO DAILY semaglutide (Ozempic) 0.25 mg subcut TU valsartan 320 mg PO DAILY Do you need a note to return to daycare/school/sports/work: No HPI HPI Cough: Details: This 68 years old very pleasant female a case of super morbid obesity, and obstructive sleep apnea, as well as Asthma . Is here. For her routine follow-up She is using CPAP very regularly every night and sleeps good. She has no issues with the CPAP or the mask. Asthma is under good control, with Breo 200-25 once a day and she hardly needs to use albuterol. She is on Semaglutide 0.25 mg subQ Q 1 week and is losing weight slowly. [facility] Medical History History of cardioversion GERD (gastroesophageal reflux disease) Bronchitis Asthma exacerbation PAF (paroxysmal atrial fibrillation) MDD (major depressive disorder) HTN (hypertension) Post covid-19 condition, unspecified Morbid obesity JIMBO on CPAP Bronchial asthma Surgical History History of cardioversion Anal fistula Hx of laparoscopic gastric banding History of hysterectomy for cancer H/O umbilical hernia repair History of cholecystectomy H/O colonoscopy Social History Household Members: Spouse Housing: House Do you presently have visiting nurse or other home services: No Alcohol intake: never Patient Tobacco Use Status: Former Tobacco user Quit Date: 1992 Tobacco use type: Cigarette Years Smoked: 25 +/- Second Hand Smoke Exposure: No Advance Directives Date on File: 12/25/22 service: No Current occupational status: unemployed Review of Systems Const All systems reviewed & are unremarkable except as noted in HPI and below Eyes Reports no additional complaints ENT Reports no additional complaints Card Denies chest pain, Denies irregular heart rhythm and Denies leg edema Resp Reports as per HPI, Reports cough and Reports wheezing GI Reports as per HPI Reports no additional complaints Musc Reports no additional complaints Skin/Breast Reports system reviewed and no additional complaints, except as documented Neuro Reports no additional complaints Psych Reports no additional complaints Aller/Immun Reports wheezing Physical Exam Vital Signs: Last Vital Signs Pulse 86 03/14/24 14:16 BP 110/80 03/14/24 14:16 Pulse Ox 97 03/14/24 14:16 Oxygen Delivery Method Room Air 03/14/24 14:16 BMI result Body Mass Index 55.3 She remains grossly obese with a round face Const General: comfortable, no acute distress, alert and awake Orientation/consciousness: patient oriented x3 HEENT Head: Yes normal to inspection General nose exam: No nasal polyps present and No nasal discharge present Face and sinus: Yes sinuses nontender Mouth: oropharynx abnormals (CROWDED, MALLAMPATI CLASS 4) Throat: Yes posterior oropharynx normal Eyes General: appearance normal, both eyes and all related structures Neck Neck: Yes normal visual inspection, Yes no lymphadenopathy, Yes trachea midline and Yes no JVD Thyroid: Thyroid normal Chest Chest palpation & inspection: normal inspection of the chest, normal palpation of entire chest wall and no tenderness Resp Other: PERCUSSION NOTE IS RESONANT, BREATH SOUNDS ARE SLIGHTLY DISTANT BUT EQUAL ON BOTH SIDES. DIMINISHED OVER THE BASILAR AREAS. NO WHEEZES OR CREPITATIONS ARE HEARD TODAY. Cardio Palpation: normal PMI Rate: regular rate and tachycardic Rhythm: abnormal rhythm Heart sounds: no gallops and no murmurs Peripheral pulses: Peripheral pulses 2+ throughout GI Palpation (GI): Soft to palpation, nontender, No hepatosplenomegaly present and no masses Auscultation: normal bowel sounds Back/Spine/Pelvis Thoracic/Lumbar Spine: thoracic and lumbar spine normal to inspection and thoraco-lumbar ROM limited Skin General skin exam: no rashes or lesions noted Neuro General: patient oriented x3, No gait normal (MILD IMPAIRMENT DUE TO LOW BACK STIFFNESS, USES CANE) and no focal motor deficits Cranial nerves: Yes CN's II-XII intact bilaterally Extrem General: Yes normal to inspection, Yes no clubbing, cyanosis or edema and Yes no calf tenderness Psych Appearance: grossly normal and well kempt Speech and movement: Normal speech and movement present Results Reviewed Results Reviewed: Compliance report not available But she uses CPAP every night at least for 6 hours per night and sleeps good. Assessment & Plan Assessment & Plan (1) Morbid obesity: Comment: SHE IS WELL AWARE OF HER PROBLEM OF OBESITY. She is on her diet program. Also currently on Ozempic 0.25 mg subQ weekly. Code(s): E66.01 - Morbid (severe) obesity due to excess calories Category: Medical Plan: Continue current treatment plan, Continue to lose weight slowly. (2) JIMBO on CPAP: Comment: CASE OF OBSTRUCTIVE SLEEP APNEA SECONDARY TO MORBID OBESITY FOR MANY YEARS. TREATED WELL WITH USE OF CPAP. PATIENT IS WELL USED TO CPAP DEVICE , HAS BEEN VERY COMPLIANT AND BENEFITTING. NO ISSUES WITH THE MACHINE OR CPAP MASK. She has a new CPAP device, which is working very well. Code(s): G47.33 - Obstructive sleep apnea (adult) (pediatric); Z99.89 - Dependence on other enabling machines and devices Category: Medical Plan: CONTINUE TO USE CPAP REGULARLY EVERY NIGHT (3) Bronchial asthma: Comment: SHE HAS MILD INTERMITTENT BRONCHIAL ASTHMA. NO EVIDENCE OF COPD. MAY HAVE SOME RESTRICTIVE COMPONENT. Code(s): J45.909 - Unspecified asthma, uncomplicated Category: Medical Plan: RX : CONT. BREO 200-25 1 INH. DAILY . AND ALBUTEROL HFA 2 PUFFS Q 4-6 HRS PRN Coding Level of Care Code Est Pt Level 3 (72757) Diagnoses Morbid obesity E66.01 JIMBO on CPAP G47.33; Z99.89 Bronchial asthma J45.909
[2024-03-14 14:16] VITALS: BP 110/80; PULSE 86; O2SAT 97; BMI 55.3
== END 2024-03-14 14:37 | disposition home or self-care (01) ==
PROVIDERS: PCP Internal Medicine; Visit Provider Internal Medicine
DX: E66.01 Morbid (severe) obesity due to excess calories (principal); G47.33 Obstructive sleep apnea (adult) (pediatric); Z99.89 Dependence on other enabling machines and devices; J45.909 Unspecified asthma, uncomplicated
CPT/HCPCS: 99213

== ENCOUNTER → 2024-03-14 14:07 | Outpatient (BNVA) | payer MEDICARE, OTHER, SELFPAY | PROVIDERS: PCP Internal Medicine; Visit Provider Internal Medicine | DX: J45.909 Unspecified asthma, uncomplicated (principal); E66.09 Other obesity due to excess calories; G47.33 Obstructive sleep apnea (adult) (pediatric); Z99.89 Dependence on other enabling machines and devices | CPT/HCPCS: 99212 ==

== ENCOUNTER 2024-04-20 10:46 | Outpatient (REF) | payer MEDICARE, OTHER, SELFPAY ==
--- NOTE | ~2024-04-20 | MM_ITS ---
EXAMINATION: MM SCREENING DIGITAL BREAST TOMOSYNTHESIS, BILATERAL CLINICAL INFORMATION: Screening. Asymptomatic. COMPARISON: Mammography: This study is compared with prior exams dating back to 2020. TECHNIQUE: Digital breast tomosynthesis is performed in both the craniocaudal and mediolateral oblique views along with computer-aided detection (CAD). Synthesized 2D images are generated from the tomosynthesis. FINDINGS: The breasts are almost entirely fatty (ACR BI-RADS breast composition Category a). There are no significant masses, abnormal calcifications, or other abnormalities. MM/MM tomosynthesis screening BI IMPRESSION: No mammographic evidence of malignancy. ASSESSMENT: BI-RADS BI-RADS 1 - Negative RECOMMENDATION: Routine annual mammography screening. 1 year F/U This examination should not preclude the clinical evaluation of a suspicious palpable abnormality. This patient's information was entered into a reminder system with a target due date for their next mammogram.
== END 2024-04-20 10:47 | disposition home or self-care (01) ==
LOC: HO.MAMMO 10:46
PROVIDERS: PCP Internal Medicine; Visit Provider Internal Medicine
DX: Z12.31 Encounter for screening mammogram for malignant neoplasm of breast (principal)
CPT/HCPCS: 77063; 77067

== ENCOUNTER → 2024-04-20 11:00 | Outpatient (BNV) | payer MEDICARE, OTHER, SELFPAY | PROVIDERS: PCP Internal Medicine; Visit Provider Radiology Diagnostic Radiology | DX: Z12.31 Encounter for screening mammogram for malignant neoplasm of breast (principal) | CPT/HCPCS: 77063; 77067 ==

== ENCOUNTER 2024-09-07 10:55 | Outpatient (AMB) | payer MEDICARE, OTHER, SELFPAY ==
--- NOTE | 2024-09-07 10:59 | A.OFFVIS_ITS ---
Vital Signs 09/07/24 11:00 Height 5 ft 3 in Weight 298 lb 11.622 oz BMI 52.9 BP 162/92 H Blood Pressure Location Lt radial Position Sitting Pulse 67 Pulse Source Pulse Oximeter Pulse Oximetry (%) 97 Oxygen Delivery Method Room Air Intake Visit Reasons: Cough Intake Note: pt is here for follow up and states she is feeling good, breathing is good, just knee issues. Community Resource Consultant Required: No Allergies adhesive tape [ADHESIVE TAPE] Allergy (Intermediate, Verified 09/07/24 11:24) BLISTERS Medication List - Last Reconciled 09/07/24 by Han Aldridge MD albuterol sulfate 90 mcg/actuation (ProAir HFA) 2 puffs inhalation Q4-6H PRN 30 days apixaban (Eliquis) 5 mg PO BID cholecalciferol (vitamin D3) 25 mcg PO DAILY digoxin 125 mcg PO DAILY fluticasone furoate-vilanterol 200-25 mcg/dose (Breo Ellipta) 1 ea inhalation DAILY furosemide 40 mg PO DAILY mecobalamin (vitamin B12) 5,000 mcg PO MOWEFR@1000 metoprolol succinate ER 100 mg PO DAILY multivitamin 1 tab PO DAILY omega-3 fatty acids 1,250 mg PO DAILY omeprazole 20 mg PO DAILY@0630 paroxetine HCl 45 mg PO DAILY rosuvastatin 10 mg PO DAILY semaglutide (Ozempic) 0.25 mg subcut TU valsartan 320 mg PO DAILY Do you need a note to return to daycare/school/sports/work: No HPI HPI Cough: Details: This 69 years old very pleasant female with super morbid obesity, ,obstructive sleep apnea and bronchial asthma, is here for follow-up after 6 months. She is happy because she lost about 18 lb of weight since she is on Ozempic injections. She claims that her at [facility] has become much more positive. Breathing has been very stable and she uses Breo 200-25 once a day. She hardly needs to use the rescue inhaler. Luckily she has had no acute infection lately. She uses CPAP very regularly at least for 6-7 hours every night and sleeps good. No issues with the CPAP device are mask. She uses fullface mask of large size. [facility]MERLY [facility], [facility]1983 Medical History History of cardioversion GERD (gastroesophageal reflux disease) Bronchitis Asthma exacerbation PAF (paroxysmal atrial fibrillation) MDD (major depressive disorder) HTN (hypertension) Post covid-19 condition, unspecified Morbid obesity JIMBO on CPAP Bronchial asthma Surgical History History of cardioversion Anal fistula Hx of laparoscopic gastric banding History of hysterectomy for cancer H/O umbilical hernia repair History of cholecystectomy H/O colonoscopy Social History Household Members: Spouse Housing: House Do you presently have visiting nurse or other home services: No Alcohol intake: never Patient Tobacco Use Status: Former Tobacco user Tobacco use type: Cigarette Years Smoked: 25 +/- Second Hand Smoke Exposure: No Advance Directives Date on File: 12/25/22 service: No Current occupational status: unemployed Review of Systems Const All systems reviewed & are unremarkable except as noted in HPI and below Eyes Reports no additional complaints ENT Reports no additional complaints Card Denies chest pain, Denies irregular heart rhythm and Denies leg edema Resp Reports as per HPI, Reports cough and Reports wheezing GI Reports as per HPI Reports no additional complaints Musc Reports no additional complaints Skin/Breast Reports system reviewed and no additional complaints, except as documented Neuro Reports no additional complaints Psych Reports no additional complaints Aller/Immun Reports wheezing Physical Exam Vital Signs: Last Vital Signs Pulse 67 09/07/24 11:00 BP 162/92 H 09/07/24 11:00 Pulse Ox 97 09/07/24 11:00 Oxygen Delivery Method Room Air 09/07/24 11:00 BMI result Body Mass Index 52.9 She remains grossly obese with a round face Const General: comfortable, no acute distress, alert and awake Orientation/consciousness: patient oriented x3 HEENT Head: Yes normal to inspection General nose exam: No nasal polyps present and No nasal discharge present Face and sinus: Yes sinuses nontender Mouth: oropharynx abnormals (CROWDED, MALLAMPATI CLASS 4) Throat: Yes posterior oropharynx normal Eyes General: appearance normal, both eyes and all related structures Neck Neck: Yes normal visual inspection, Yes no lymphadenopathy, Yes trachea midline and Yes no JVD Thyroid: Thyroid normal Chest Chest palpation & inspection: normal inspection of the chest, normal palpation of entire chest wall and no tenderness Resp Other: PERCUSSION NOTE IS RESONANT, BREATH SOUNDS ARE SLIGHTLY DISTANT BUT EQUAL ON BOTH SIDES. DIMINISHED OVER THE BASILAR AREAS. NO WHEEZES OR CREPITATIONS ARE HEARD TODAY. Cardio Palpation: normal PMI Rate: regular rate and tachycardic Rhythm: abnormal rhythm Heart sounds: no gallops and no murmurs Peripheral pulses: Peripheral pulses 2+ throughout GI Palpation (GI): Soft to palpation, nontender, No hepatosplenomegaly present and no masses Auscultation: normal bowel sounds Back/Spine/Pelvis Thoracic/Lumbar Spine: thoracic and lumbar spine normal to inspection and thoraco-lumbar ROM limited Skin General skin exam: no rashes or lesions noted Neuro General: patient oriented x3, No gait normal (MILD IMPAIRMENT DUE TO LOW BACK STIFFNESS, USES CANE) and no focal motor deficits Cranial nerves: Yes CN's II-XII intact bilaterally Extrem General: Yes normal to inspection, Yes no clubbing, cyanosis or edema and Yes no calf tenderness Psych Appearance: grossly normal and well kempt Speech and movement: Normal speech and movement present Assessment & Plan Assessment & Plan (1) Morbid obesity: Comment: SHE IS WELL AWARE OF HER PROBLEM OF OBESITY. She is on her diet program. Also currently on Ozempic 0.25 mg subQ weekly. Code(s): E66.01 - Morbid (severe) obesity due to excess calories Category: Medical Plan: Happy that she is losing weight. Advised to continue on dietary restrictions and continue on Ozempic therapy. (2) JIMBO on CPAP: Comment: CASE OF OBSTRUCTIVE SLEEP APNEA SECONDARY TO MORBID OBESITY FOR MANY YEARS. TREATED WELL WITH USE OF CPAP. PATIENT IS WELL USED TO CPAP DEVICE , HAS BEEN VERY COMPLIANT AND BENEFITTING. NO ISSUES WITH THE MACHINE OR CPAP MASK. THE NEW CPAP MACHINE IS WORKING WELL. Code(s): G47.33 - Obstructive sleep apnea (adult) (pediatric); Z99.89 - Dependence on other enabling machines and devices Category: Medical Plan: COMMENDED FOR GOOD COMPLIANCE AND ADVISED TO KEEP ON USING THE CPAP EVERY NIGHT . (3) Bronchial asthma: Comment: SHE HAS MILD INTERMITTENT BRONCHIAL ASTHMA. NO EVIDENCE OF COPD. MAY HAVE SOME RESTRICTIVE COMPONENT. Code(s): J45.909 - Unspecified asthma, uncomplicated Category: Medical Plan: CONTINUE USING BREO 200-251 INHALATION DAILY. USE ALBUTEROL HFA 2 PUFFS Q 6 HOURS ONLY P.R.N.. Coding Level of Care Code Est Pt Level 3 (11393) Diagnoses Morbid obesity E66.01 JIMBO on CPAP G47.33; Z99.89 Bronchial asthma J45.909
[2024-09-07 11:00] VITALS: BP 162/92; PULSE 67; O2SAT 97; BMI 52.9
== END 2024-09-07 11:26 | disposition home or self-care (01) ==
PROVIDERS: PCP Internal Medicine; Visit Provider Internal Medicine
DX: E66.01 Morbid (severe) obesity due to excess calories (principal); G47.33 Obstructive sleep apnea (adult) (pediatric); Z99.89 Dependence on other enabling machines and devices; J45.909 Unspecified asthma, uncomplicated
CPT/HCPCS: 99213

== ENCOUNTER → 2024-09-07 10:55 | Outpatient (BNVA) | payer MEDICARE, OTHER, SELFPAY | PROVIDERS: PCP Internal Medicine; Visit Provider Internal Medicine | DX: J45.909 Unspecified asthma, uncomplicated (principal); G47.33 Obstructive sleep apnea (adult) (pediatric); E66.01 Morbid (severe) obesity due to excess calories; Z99.89 Dependence on other enabling machines and devices; Z68.43 Body mass index [BMI] 50.0-59.9, adult | CPT/HCPCS: 99212 ==

== ENCOUNTER 2025-03-07 13:34 | Outpatient (AMB) | payer MEDICARE, OTHER, SELFPAY ==
[2025-03-07 13:41] VITALS: BP 122/90; PULSE 67; O2SAT 98; BMI 51.3
--- NOTE | 2025-03-07 13:41 | A.OFFVIS_ITS ---
Vital Signs 03/07/25 13:41 Height 5 ft 3 in Weight 289 lb 14.526 oz BMI 51.3 BP 122/90 H Blood Pressure Location Lt brachial Position Sitting Pulse 67 Pulse Source Pulse Oximeter Pulse Oximetry (%) 98 Oxygen Delivery Method Room Air Intake Visit Reasons: Cough Intake Note: pt is here for follow up and states she is feeling good, using cpap and no cough Train Operations Supervisor Required: No Allergies adhesive tape [ADHESIVE TAPE] Allergy (Intermediate, Verified 03/07/25 13:53) BLISTERS Medication List - Last Reconciled 03/07/25 by Han Aldridge MD albuterol sulfate 90 mcg/actuation (ProAir HFA) 2 puffs inhalation Q4-6H PRN 30 days apixaban (Eliquis) 5 mg PO BID cholecalciferol (vitamin D3) 25 mcg PO DAILY digoxin 125 mcg PO DAILY fluticasone furoate-vilanterol 200-25 mcg/dose (Breo Ellipta) 1 ea inhalation DAILY furosemide 40 mg PO DAILY mecobalamin (vitamin B12) 5,000 mcg PO MOWEFR@1000 metoprolol succinate ER 100 mg PO DAILY multivitamin 1 tab PO DAILY omega-3 fatty acids 1,250 mg PO DAILY omeprazole 20 mg PO DAILY@0630 paroxetine HCl 45 mg PO DAILY rosuvastatin 10 mg PO DAILY semaglutide (Ozempic) 0.25 mg subcut TU valsartan 320 mg PO DAILY Do you need a note to return to daycare/school/sports/work: No HPI HPI Cough: Details: THIS 69 YEARS OLD VERY PLEASANT FEMALE WHO IS MORBIDLY OBESE, AND HIS BEING TREATED FOR OBSTRUCTIVE SLEEP APNEA/COPD, COMES FOR FOLLOW-UP AFTER 6 MONTHS. SHE HAS BEEN DOING VERY WELL, DID NOT, HAVE ANY ACUTE EXACERBATION AND USES CPAP REGULARLY. HER MACHINE DOES NOT TRANSMIT INFORMATION FOR COMPLIANCE. SHE IS ON SEMAGLUTIDE INJECTIONS AND HAS LOST 10-12 LB OF WEIGHT. BREATHING IS GOOD DENIES ANY COUGH OR WHEEZING, USES BREO 200-251 INHALATION DAILY REGULARLY. [facility] Medical History History of cardioversion GERD (gastroesophageal reflux disease) Bronchitis Asthma exacerbation PAF (paroxysmal atrial fibrillation) MDD (major depressive disorder) HTN (hypertension) Post covid-19 condition, unspecified Morbid obesity JIMBO on CPAP Bronchial asthma Surgical History History of cardioversion Anal fistula Hx of laparoscopic gastric banding History of hysterectomy for cancer H/O umbilical hernia repair History of cholecystectomy H/O colonoscopy Social History Household Members: Spouse Housing: House Do you presently have visiting nurse or other home services: No Alcohol intake: never Patient Tobacco Use Status: Former Tobacco user Tobacco use type: Cigarette Years Smoked: 25 +/- Second Hand Smoke Exposure: No Advance Directives Date on File: 12/25/22 service: No Current occupational status: unemployed Review of Systems Const All systems reviewed & are unremarkable except as noted in HPI and below Eyes Reports no additional complaints ENT Reports no additional complaints Card Denies chest pain, Denies irregular heart rhythm and Denies leg edema Resp Reports as per HPI, Reports cough and Reports wheezing GI Reports as per HPI Reports no additional complaints Musc Reports no additional complaints Skin/Breast Reports system reviewed and no additional complaints, except as documented Neuro Reports no additional complaints Psych Reports no additional complaints Aller/Immun Reports wheezing Physical Exam Vital Signs: Last Vital Signs Pulse 67 03/07/25 13:41 BP 122/90 H 03/07/25 13:41 Pulse Ox 98 03/07/25 13:41 Oxygen Delivery Method Room Air 03/07/25 13:41 BMI result Body Mass Index 51.3 She remains grossly obese with a round face Const General: comfortable, no acute distress, alert and awake Orientation/consciousness: patient oriented x3 HEENT Head: Yes normal to inspection General nose exam: No nasal polyps present and No nasal discharge present Face and sinus: Yes sinuses nontender Mouth: oropharynx abnormals (CROWDED, MALLAMPATI CLASS 4) Throat: Yes posterior oropharynx normal Eyes General: appearance normal, both eyes and all related structures Neck Neck: Yes normal visual inspection, Yes no lymphadenopathy, Yes trachea midline and Yes no JVD Thyroid: Thyroid normal Chest Chest palpation & inspection: normal inspection of the chest, normal palpation of entire chest wall and no tenderness Resp Other: PERCUSSION NOTE IS RESONANT, BREATH SOUNDS ARE SLIGHTLY DISTANT BUT EQUAL ON BOTH SIDES. DIMINISHED OVER THE BASILAR AREAS. NO WHEEZES OR CREPITATIONS ARE HEARD TODAY. Cardio Palpation: normal PMI Rate: regular rate and tachycardic Rhythm: abnormal rhythm Heart sounds: no gallops and no murmurs Peripheral pulses: Peripheral pulses 2+ throughout GI Palpation (GI): Soft to palpation, nontender, No hepatosplenomegaly present and no masses Auscultation: normal bowel sounds Back/Spine/Pelvis Thoracic/Lumbar Spine: thoracic and lumbar spine normal to inspection and thoraco-lumbar ROM limited Skin General skin exam: no rashes or lesions noted Neuro General: patient oriented x3, No gait normal (MILD IMPAIRMENT DUE TO LOW BACK STIFFNESS, USES CANE) and no focal motor deficits Cranial nerves: Yes CN's II-XII intact bilaterally Extrem General: Yes normal to inspection, Yes no clubbing, cyanosis or edema and Yes no calf tenderness Psych Appearance: grossly normal and well kempt Speech and movement: Normal speech and movement present Assessment & Plan Assessment & Plan (1) Morbid obesity: Comment: SHE IS WELL AWARE OF HER PROBLEM OF OBESITY. She is on her diet program. Also currently on Ozempic 0.25 mg subQ weekly. Has lost about 10 lb of weight and is happy about that. Code(s): E66.01 - Morbid (severe) obesity due to excess calories Category: Medical Plan: Encouraged to keep on watching her diet and stay on the, Ozempic injection, keep on losing weight. (2) Bronchial asthma: Comment: SHE HAS MILD INTERMITTENT BRONCHIAL ASTHMA. NO EVIDENCE OF COPD. MAY HAVE SOME RESTRICTIVE COMPONENT. Code(s): J45.909 - Unspecified asthma, uncomplicated Category: Medical Plan: Doing well with the use of Breo 200-251 inhalation daily, and hardly needs to use the rescue inhaler. (3) JIMBO on CPAP: Comment: CASE OF OBSTRUCTIVE SLEEP APNEA SECONDARY TO MORBID OBESITY FOR MANY YEARS. TREATED WELL WITH USE OF CPAP. PATIENT IS WELL USED TO CPAP DEVICE , HAS BEEN VERY COMPLIANT AND BENEFITTING. NO ISSUES WITH THE MACHINE OR CPAP MASK. THE NEW CPAP MACHINE IS WORKING WELL. Code(s): G47.33 - Obstructive sleep apnea (adult) (pediatric); Z99.89 - Dependence on other enabling machines and devices Category: Medical Plan: Continue to use the CPAP every night regularly . Medications: Changed From albuterol sulfate 90 mcg/actuation (ProAir HFA) 2 puffs inhalation Q4-6H 30 days PRN 8.5 grams 3RF shortness of breath or wheezing To albuterol sulfate 90 mcg/actuation 2 puffs inhalation Q4-6H 30 days PRN 8.5 grams 3RF shortness of breath or wheezing Coding Level of Care Code Est Pt Level 3 (67276) Diagnoses Morbid obesity E66.01 Bronchial asthma J45.909 JIMBO on CPAP G47.33; Z99.89
== END 2025-03-07 13:54 | disposition home or self-care (01) ==
LOC: HO.HPS 13:34
PROVIDERS: PCP Internal Medicine; Visit Provider Internal Medicine
DX: E66.01 Morbid (severe) obesity due to excess calories (principal); J45.909 Unspecified asthma, uncomplicated; G47.33 Obstructive sleep apnea (adult) (pediatric); Z99.89 Dependence on other enabling machines and devices
CPT/HCPCS: 99213

== ENCOUNTER → 2025-03-07 13:34 | Outpatient (BNVA) | payer MEDICARE, OTHER, SELFPAY | PROVIDERS: PCP Internal Medicine; Visit Provider Internal Medicine | DX: G47.33 Obstructive sleep apnea (adult) (pediatric) (principal); J45.909 Unspecified asthma, uncomplicated; E66.01 Morbid (severe) obesity due to excess calories; Z99.89 Dependence on other enabling machines and devices; Z68.43 Body mass index [BMI] 50.0-59.9, adult | CPT/HCPCS: 99212 ==

== ENCOUNTER 2025-03-27 12:18 | Outpatient (REF) | payer MEDICARE, OTHER, SELFPAY ==
[2025-03-27 16:22] LABS: Eosinophils Absolute Auto 0.1 X10*3/uL (0.0-0.4); Eosinophils Percent Auto 1.3 % (0-4); Imm Gran Abs Auto 0.02 X10*3/uL (0.00-0.03); Imm Gran Pct Auto 0.3 % (0.0-0.4); MANUAL DIFF FLAG SCAN; Mean Corpuscular HGB Conc 33.2 g/dl (31.0-35.0); Mean Corpuscular Hemoglobin 29.5 pg (27.0-33.0); PLT CLUMP 1; SCAN SMEAR FLAG 1
[2025-03-27 16:24] LABS: Basophils Percent Auto 0.3 % (0-2); Hematocrit 46.4 % (37.0-47.0); Hemoglobin 15.4 g/dl (12.0-16.0); Lymphocytes Absolute Auto 1.7 X10*3/uL (1.2-4.9); Lymphocytes Percent Auto 21.3 % (20-40); Mean Corpuscular Volume 88.9 fL (80.0-98.0); Mean Platelet Volume 10.7 fL (9.4-12.3); Monocytes Absolute Auto 0.7 X10*3/uL (0.1-1.2); Monocytes Percent Auto 8.3 % (2-11); Neutrophils Absolute Auto 5.3 x10*3/uL (2.0-8.3); Neutrophils Percent Auto 68.5 % (45-73); Red Blood Count 5.22 X10*6/uL (4.20-5.50); Red Cell Distribution Width 13.8 % (11.0-16.0)
[2025-03-27 16:29] LABS: Estimated Average Glucose 131 mg/dL; Hemoglobin A1c % 6.2 % (<6.0); Total Hemoglobin (HGBA1C) 3917.0121 umol/L
[2025-03-27 16:48] LABS: Alanine Aminotransferase 12 U/L (0-31); Albumin Level 3.8 g/dL (3.5-5.0); Anion Gap 13 (12-20); Aspartate Amino Transferase 24 U/L (5-31); Bilirubin Total 1.2 mg/dL (0.0-1.0); Blood Urea Nitrogen 12 mg/dL (9-16); Calcium 9.2 mg/dL (8.4-10.2); Carbon Dioxide 29 mmol/L (22-29); Chloride 104 mmol/L (96-108); Cholesterol 156 mg/dL (<200); Estimated Glomerular Filt Rate > 60; Glucose Random 129 mg/dL (60-115); HDL Cholesterol 48 mg/dL (>40); LDL Cholesterol Calculated 78 mg/dL (<100); Potassium 4.5 mmol/L (3.3-5.1); Sodium 141 mmol/L (135-145); Total Protein 6.6 g/dL (6.5-8.0); Triglycerides 154 mg/dL (<150)
[2025-03-27 16:52] LABS: Creatinine Urine 191.71 mg/dL; Microalbum/Creatinine Ratio Ur 51.1 ug/mg cr (<30)
[2025-03-27 17:01] LABS: Alkaline Phosphatase 91 U/L (39-117); TSH reflex Free T4 1.37 uIU/mL (0.32-4.0)
[2025-03-27 17:02] LABS: SLIDE REVIEW VERIFIED; White Blood Count 7.9 X10*3/uL (4.8-10.8)
== END 2025-03-27 12:19 | disposition home or self-care (01) ==
LOC: HO.HMGCLDS 12:18
PROVIDERS: PCP Internal Medicine; Visit Provider Internal Medicine
DX: I10 Essential (primary) hypertension (principal); E11.29 Type 2 diabetes mellitus with other diabetic kidney complication; I50.32 Chronic diastolic (congestive) heart failure; R80.9 Proteinuria, unspecified
CPT/HCPCS: 36415; 80053; 80061; 82043; 82570; 83036; 84443; 85025

== ENCOUNTER 2025-04-19 14:42 | Outpatient (AMB) | payer MEDICARE, OTHER, SELFPAY ==
--- NOTE | 2025-04-19 14:52 | MHC.OFFVIS ---
Vital Signs 04/19/25 14:54 Height 5 ft 3 in Weight 289 lb 3.944 oz BMI 51.2 BP 130/70 Blood Pressure Location Lt brachial Position Sitting Pulse 100 Pulse Source Monitor Intake Visit Reasons: 6 mth fu Intake Note: 6 mth f/up Alignment Technician Required: No Accompanied by: Self / Same As Patient Allergies adhesive tape [ADHESIVE TAPE] Allergy (Intermediate, Verified 03/07/25 13:53) BLISTERS Medication List - Last Reconciled 04/19/25 by Jaime Clifford MD albuterol sulfate 90 mcg/actuation 2 puffs inhalation Q4-6H PRN 30 days apixaban (Eliquis) 5 mg PO BID cholecalciferol (vitamin D3) 25 mcg PO DAILY digoxin 125 mcg PO DAILY fluticasone furoate-vilanterol 200-25 mcg/dose (Breo Ellipta) 1 ea inhalation DAILY furosemide 40 mg PO DAILY mecobalamin (vitamin B12) 5,000 mcg PO MOWEFR@1000 metoprolol succinate ER 100 mg PO DAILY multivitamin 1 tab PO DAILY omega-3 fatty acids 1,250 mg PO DAILY omeprazole 20 mg PO DAILY@0630 paroxetine HCl 45 mg PO DAILY rosuvastatin 10 mg PO DAILY semaglutide (Ozempic) 0.25 mg subcut TU valsartan 320 mg PO DAILY HPI Comments Details: [age] year female who is here for follow-up. She has persistent atrial fibrillation. She was previously on amiodarone which was changed to sotalol and eventually she went back into AFib and was treated with rate control strategy. She has been following with [facility] electrophysiology Dr. Melo Currently on metoprolol succinate 100 mg and digoxin 125 mcg daily. Denying any chest pain or significant shortness of breath. She is saying that she does not feel different when she was in in or out of AFib. [facility] Medical History History of cardioversion GERD (gastroesophageal reflux disease) Bronchitis Asthma exacerbation PAF (paroxysmal atrial fibrillation) MDD (major depressive disorder) HTN (hypertension) Post covid-19 condition, unspecified Morbid obesity JIMBO on CPAP Bronchial asthma Surgical History History of cardioversion Anal fistula Hx of laparoscopic gastric banding History of hysterectomy for cancer H/O umbilical hernia repair History of cholecystectomy H/O colonoscopy Social History (Reviewed 04/19/25 @ 14:55 by Airam Rojo [facility]) Household Members: Spouse Housing: House Do you presently have visiting nurse or other home services: No Alcohol intake: never Patient Tobacco Use Status: Former Tobacco user Tobacco use type: Cigarette Years Smoked: 25 +/- Second Hand Smoke Exposure: No Advance Directives Date on File: 12/25/22 service: No Current occupational status: unemployed Review of Systems Const Denies chills, Denies fatigue, Denies fever(s), Denies frequent falls, Denies weakness, Denies weight gain and Denies weight loss ENT Denies dizziness Card Denies chest pain, Denies leg edema, Denies lightheadedness, Denies palpitations, Reports dyspnea and Reports dyspnea on exertion Resp Denies cough, Reports dyspnea and Reports dyspnea on exertion GI Denies hematochezia Musc Denies abnormal gait, Denies muscle weakness, Denies numbness, Denies radiating pain into limb and Denies tingling Neuro Denies abnormal gait, Denies dizziness, Denies frequent falls, Denies numbness, Denies tingling and Denies weakness Endo Denies fatigue and Denies palpitations Physical Exam Vital Signs: Last Vital Signs Pulse 100 04/19/25 14:54 BP 130/70 04/19/25 14:54 BMI result Body Mass Index 51.2 GENERAL APPEARANCE: in no acute distress, pleasant. NECK: no carotid bruit, no jugular venous distention. SKIN: no suspicious lesions, warm and dry. HEART: no murmurs, irregular rate and rhythm. LUNGS: clear to auscultation bilaterally. ABDOMEN: soft, nontender. EXTREMITIES: no edema. PERIPHERAL PULSES: equal. NEUROLOGIC: No gross deficits, AAO X 3 Office Procedures EKG Details: Atrial fibrillation 100 beats per minute, normal axis, septal infarct, nonspecific ST-T changes, QTC 415 milliseconds. [id number], Complete Assessment & Plan Assessment & Plan (1) Persistent atrial fibrillation: Code(s): I48.19 - Other persistent atrial fibrillation Category: Medical Plan Pleasant 69 year female who is here for follow-up. She has persistent atrial fibrillation has been treated with rate control strategy at this point with metoprolol and digoxin. Clinically does not appear to be in heart failure. She has not had any echocardiography for long time. We will arrange ECHO to assess LVEF. If ejection fraction low then she may need cardioversion and antiarrhythmic therapy for atrial fibrillation. On the other hand if ejection fraction is stable then we can continue to monitor her closely. Thank you for allowing me to participate in the care of your patient. Please feel free to contact me if you have any questions. Orders: Orders CA echo transthorac w con Today I48.19 - Other persistent atrial fibrillation Coding Level of Care Code Est Pt Level 4 (87300) Diagnoses Persistent atrial fibrillation I48.19 CPT Codes EKG - CPT: 43022-[id number], Complete ([id number])
[2025-04-19 14:54] VITALS: BP 130/70; PULSE 100; BMI 51.2
== END 2025-04-19 15:09 | disposition home or self-care (01) ==
LOC: HO.HCS 14:42
PROVIDERS: PCP Internal Medicine; Visit Provider Internal Medicine Cardiovascular Disease
DX: I48.19 Other persistent atrial fibrillation (principal)
CPT/HCPCS: 93010; 99214

== ENCOUNTER → 2025-04-19 14:42 | Outpatient (BNVA) | payer MEDICARE, OTHER, SELFPAY | PROVIDERS: PCP Internal Medicine; Visit Provider Internal Medicine Cardiovascular Disease | DX: I48.19 Other persistent atrial fibrillation (principal); Z79.899 Other long term (current) drug therapy | CPT/HCPCS: 93005; 99212 ==

== ENCOUNTER → 2025-04-25 11:00 | Outpatient (BNV) | payer MEDICARE, OTHER, SELFPAY | PROVIDERS: PCP Internal Medicine; Visit Provider Internal Medicine | DX: Z12.31 Encounter for screening mammogram for malignant neoplasm of breast (principal) | CPT/HCPCS: 77063; 77067 ==

== ENCOUNTER 2025-04-25 11:50 | Outpatient (REF) | payer MEDICARE, OTHER, SELFPAY | END 2025-04-25 11:51 | disposition home or self-care (01) | LOC: HO.MAMMO 11:50 | PROVIDERS: PCP Internal Medicine; Visit Provider Internal Medicine | DX: Z12.31 Encounter for screening mammogram for malignant neoplasm of breast (principal) | CPT/HCPCS: 77063; 77067 ==

== ENCOUNTER → 2025-05-18 10:01 | Outpatient (REF) | payer MEDICARE, OTHER, SELFPAY ==
--- NOTE | 2025-05-18 10:05 | CA_ITS ---
Transthoracic Echocardiogram Patient (Last, First, Middle): Gabriela Hernandez, Gender: Female Date of : 1955 Age: 69 Procedure Date: 05/18/2025 Procedure Type: Transthoracic Echocardiogram Location: OP Height: 160.02 cm Weight: 129.28 kg BSA: 2.25 m2 Heart Rate: 92 bpm BP: 165 / 85 mmHg Deli/Bakery Associate: JAIME Dickens MD: Jaime Clifford MD Tobacco Drummer: Adam Sprague MD Symptoms: I48.19 - Other persistent atrial fibrillation Study Quality: Technically Difficult but Fair ECG Rhythm: Atrial Fibrillation Conclusions: - 1. Mildly reduced LV ejection fraction 45-50% on volumetric measurements with mild LVH 2. Severely dilated left atrium and moderately dilated right sided chambers with low normal LV systolic function 3. Mitral annular calcification noted with mild mitral regurgitation 4. Normal RV systolic pressure 5. Mildly dilated ascending aorta at 4.1 cm 6. No gross pericardial effusion Findings Left Ventricle Normal left ventricular cavity size. There is mildly increased left ventricular wall thickness. The left ventricular systolic function is mildly decreased. The visually estimated ejection fraction is between 45-50%. Diastolic function is indeterminate on the basis of available data. Right Ventricle Moderately increased right ventricular cavity size. There is low normal right ventricular systolic function. Atria The left atrium is severely dilated. There is no evidence of interatrial shunt. The right atrium is moderately dilated. Aortic Valve The aortic valve was not well visualized. There is no aortic valve stenosis. There is no aortic valve regurgitation. Mitral Valve There is mild anterior and moderate posterior mitral leaflet thickening. There is moderate mitral annular calcification. There is mild mitral valve regurgitation. There is no mitral valve stenosis. Pulmonic Valve The pulmonic valve was not well visualized. Tricuspid Valve Likely normal tricuspid valve structure and function. There is mild tricuspid valve regurgitation. The right ventricular systolic pressure is normal. The right ventricular systolic pressure is 29 mmHg. Normal right atrial pressure. There is no evidence of pulmonary hypertension. Great Vessels The pulmonary artery was not well visualized. There is mild dilatation of the ascending aorta measuring 4.10 cm. Small plaque is seen in the sino tubular ridge. Venous The inferior vena cava is normal in size and collapses greater than 50% with inspiration. Pericardium/Pleural There is no evidence of pericardial effusion. Prior Study Comparison Changes noted compared to prior study dated: 12/24/2022. LV systolic function was mildly reduced Measurements 2D Linear Measurements IVSd: 1.26 0.6-0.9/0.6-1.0 cm LVIDd: 4.83 3.9-5.3/4.2-5.9 cm LVIDd Index: 2.15 2.4-3.2/2.2-3.1 cm/m2 LVIDs: 2.56 2.0-3.6 cm LVPWd: 1.33 0.7-1.1 cm LA Diam: 5.80 2.7-3.8/3.0-4.0 cm LAIDs Index: 2.58 1.5-2.3 cm/m2 LV Mass: 307.67 67-162/88-224 g LV Mass Index: 136.74 43-95/49-115 g/m2 LVOT Diam: 2.10 3.0+(-)1.3 cm 2D Systolic Function EF 4C: 46.00 >55% EF 2C: 49.80 >55% EF BiP: 47.50 >55% Mitral Valve MV Pk E: 1.23 MV Decel Time: 203.00 E'Lateral: 7.94 E'Medial: 6.63 E/E' Med: 18.60 E/E' Lat: 15.50 PHT: 60.00 MVA PHT: 3.67 Decel Randolph: 6.21 Aortic Valve AoV Pk Saran: 1.28 AoV Mn Saran: 1.01 AoV VTI: 0.29 AoV Pk Grad: 7.00 Aov Mn Grad: 4.00 PATRICIA Cont.VTI: 1.83 LVOT LVOT Pk Saran: 0.74 LVOT Mn Saran: 0.58 LVOT VTI: 0.15 LVOT Pk Grad: 2.00 LVOT Mn Grad: 1.00 LVOT Diam: 2.10 LVOT Area: 3.46 Diastolic Function MV Pk E: 1.23 E'Medial: 6.63 E/E' Med: 18.60 E' Laterial: 7.94 E/E' Lat: 15.50 Right Ventricle TAPSE (mm): 17.60 TVS' Saran: 11.10 Tricuspid Valve TR Pk Saran: 2.55 TR Pk Grad: 26.00 RA Press: 3.00 RVSP: 29.00 Great Vessels Aorta Sinus of Valsalva: 3.70 2.0-3.5 cm Ao Asc: 4.10 2.1-3.4 cm Ao Arch: 3.10 Pulmonary Valve PV Pk Saran: 1.00 Peak PV Grad: 4.00 Updated in Other Vendor System with Status of Final Adam Sprague MD electronically signed on 05/18/2025 11:30:09 AM with status of Final
== END ==
LOC: HO.CARD 10:01
PROVIDERS: PCP Internal Medicine; Visit Provider Internal Medicine Cardiovascular Disease
DX: I48.19 Other persistent atrial fibrillation (principal)
CPT/HCPCS: 93306

== ENCOUNTER → 2025-05-18 10:05 | Outpatient (BNV) | payer MEDICARE, OTHER, SELFPAY | PROVIDERS: PCP Internal Medicine; Visit Provider Internal Medicine Cardiovascular Disease | DX: I34.0 Nonrheumatic mitral (valve) insufficiency (principal); I34.81 Nonrheumatic mitral (valve) annulus calcification; I51.7 Cardiomegaly; I51.89 Other ill-defined heart diseases | CPT/HCPCS: 93306 ==

== ENCOUNTER 2025-06-06 11:42 | Day surgery (SDC) | payer MEDICARE, OTHER, SELFPAY ==
--- NOTE | 2025-06-05 14:24 | HO.ANESPROP2 ---
HPI - Anesthesia Eval Consult details Narrative: 69 yr old female for cardioversion. BMI 51 JIMBO on CPAP Afib on eliquis COPD: sees pulmonary Anesthesia Pre-Procedure Meds Is the patient on any of the following meds?: GLP1/DPP4 PMFSH Active Problems Active Problems: All Active Problems Persistent atrial fibrillation (Acute) Encounter for monitoring sotalol therapy (Acute) Atrial fibrillation with rapid ventricular response (Acute) A-fib (Acute) PAF (paroxysmal atrial fibrillation) (Acute) COVID-19 (Acute) Chest pain (Acute) CHRISTIANSEN (dyspnea on exertion) (Acute) Chronic diastolic heart failure (Acute) Atrial fibrillation, rapid (Acute) Elevated TSH (Acute) Bronchitis (Acute) Asthma exacerbation (Acute) MDD (major depressive disorder) (Acute) HTN (hypertension) (Acute) Post covid-19 condition, unspecified (Acute) Morbid obesity (Acute) JIMBO on CPAP (Acute) Bronchial asthma (Acute) Past Medical History Medical History History of cardioversion GERD (gastroesophageal reflux disease) Bronchitis Asthma exacerbation PAF (paroxysmal atrial fibrillation) MDD (major depressive disorder) HTN (hypertension) Post covid-19 condition, unspecified Morbid obesity JIMBO on CPAP Bronchial asthma Family History Family history of problems with anesthesia: No Surgical History Surgical History History of cardioversion Anal fistula Hx of laparoscopic gastric banding History of hysterectomy for cancer H/O umbilical hernia repair History of cholecystectomy H/O colonoscopy History of Problems with Anesthesia: No (See above. Surgery for gall bladder was in the 1980s. No problems with anesthesia since) Social History Social History Household Members: Spouse Housing: House Do you presently have visiting nurse or other home services: No Alcohol intake: never Patient Tobacco Use Status: Former Tobacco user Tobacco use type: Cigarette Years Smoked: 25 +/- Second Hand Smoke Exposure: No Advance Directives Date on File: 12/25/22 service: No Current occupational status: unemployed Meds Allergies Allergy/AdvReac Type Severity Reaction Status Date / Time adhesive tape (ADHESIVE TAPE) Allergy Intermediate BLISTERS Verified 03/07/25 13:53 Home Medications ?Medication ?Instructions ?Recorded ?Confirmed ?Last Taken ?Type paroxetine HCl 30 mg tablet 45 mg PO DAILY 10/01/20 04/19/25 08/20/23 History mecobalamin (vitamin B12) 5,000 5,000 mcg PO MOWEFR@1000 08/06/22 04/19/25 08/19/23 History mcg disintegrating tablet rosuvastatin 10 mg tablet 10 mg PO DAILY 08/06/22 04/19/25 08/20/23 History omeprazole 20 mg capsule,delayed 20 mg PO DAILY@0630 10/14/22 04/19/25 08/19/23 History release semaglutide 0.25 mg or 0.5 mg (2 0.25 mg subcut TU 05/25/23 04/19/25 08/18/23 History mg/3 mL) subcutaneous pen injector ([employer]) digoxin 125 mcg (0.125 mg) tablet 125 mcg PO DAILY 03/14/24 04/19/25 Unknown History metoprolol succinate 100 mg 100 mg PO DAILY 03/14/24 04/19/25 Unknown History tablet,extended release 24 hr Exam Narrative Narrative: Echo 05/2025 Conclusions: - 1. Mildly reduced LV ejection fraction 45-50% on volumetric measurements with mild LVH 2. Severely dilated left atrium and moderately dilated right sided chambers with low normal LV systolic function 3. Mitral annular calcification noted with mild mitral regurgitation 4. Normal RV systolic pressure 5. Mildly dilated ascending aorta at 4.1 cm 6. No gross pericardial effusion Assessment and Plan Final Anesthetic Review Family History of Problems with Anesthesia: No History of Problems with Anesthesia: No (See above. Surgery for gall bladder was in the 1980s. No problems with anesthesia since)
--- NOTE | 2025-06-06 | ECG_ITS ---
Test Reason : POST OP Blood Pressure : */* mmHG Vent. Rate : 58 BPM Atrial Rate : * BPM P-R Int : * ms QRS Dur : 88 ms QT Int : 412 ms P-R-T Axes : * -2 197 degrees QTcB Int : 404 ms Atrial fibrillation with slow ventricular response T wave abnormality, consider anterolateral ischemia Abnormal ECG When compared with ECG of 24-Aug-2023 13:00, Atrial fibrillation has replaced Sinus rhythm Nonspecific T wave abnormality now evident in Inferior leads QT has shortened Referred By: Jaime Clifford Electronically Signed By: Jaime Clifford
[2025-06-06 12:48] VITALS: BP 168/85; PULSE 83; RESP 16; TEMP 36.3; O2SAT 97; BMI 50.6
--- NOTE | 2025-06-06 13:16 | MHC.SHP ---
Pre-Procedural Eval Section A - 24 Hr Update-Section A only Date of Service: 06/06/25 The patient is an INPATIENT: No Section B - Complete if H&P > 30 days Chief Complaint: Other persistent atrial fibrillation Allergies: Allergies Allergy/AdvReac Type Severity Reaction Status Date / Time adhesive tape (ADHESIVE TAPE) Allergy Intermediate BLISTERS Verified 06/06/25 12:44 Plan Diagnosis/Plan: Unchanged I have reviewed the history and physical and performed a pertinent physical examination on my patient. No changes have occurred unless specified. Time Spent With Patient Time: Total time managing care of this patient today ____ minutes.
[2025-06-06] MEDS: Lactated Ringers 1,000 ML 80 ML IVCONT (13:21)
--- NOTE | 2025-06-06 13:25 | HO.ANESPROP2 ---
[facility] Active Problems Active Problems: All Active Problems Persistent atrial fibrillation (Acute) Encounter for monitoring sotalol therapy (Acute) Atrial fibrillation with rapid ventricular response (Acute) A-fib (Acute) PAF (paroxysmal atrial fibrillation) (Acute) COVID-19 (Acute) Chest pain (Acute) CHRISTIANSEN (dyspnea on exertion) (Acute) Chronic diastolic heart failure (Acute) Atrial fibrillation, rapid (Acute) Elevated TSH (Acute) Bronchitis (Acute) Asthma exacerbation (Acute) MDD (major depressive disorder) (Acute) HTN (hypertension) (Acute) Post covid-19 condition, unspecified (Acute) Morbid obesity (Acute) JIMBO on CPAP (Acute) Bronchial asthma (Acute) Past Medical History Medical History History of cardioversion GERD (gastroesophageal reflux disease) Bronchitis Asthma exacerbation PAF (paroxysmal atrial fibrillation) MDD (major depressive disorder) HTN (hypertension) Post covid-19 condition, unspecified Morbid obesity JIMBO on CPAP Bronchial asthma Functional capacity: independent ambulation Patient : No Family History Family history of problems with anesthesia: No Surgical History Surgical History History of cardioversion Anal fistula Hx of laparoscopic gastric banding History of hysterectomy for cancer H/O umbilical hernia repair History of cholecystectomy H/O colonoscopy History of Problems with Anesthesia: No (See above. Surgery for gall bladder was in the 1980s. No problems with anesthesia since) Social History Social History Household Members: Spouse Housing: House Are you a primary healthcare corporate account director to a significant other at home: No Do you presently have visiting nurse or other home services: No Alcohol intake: never Patient Tobacco Use Status: Former Tobacco user Tobacco use type: Cigarette Years Smoked: 25 Smoked in Last 30 Days: No Second Hand Smoke Exposure: No Use of substances other than those prescribed or required for medical reasons: No Have you been hit, kicked, punched, or otherwise hurt by someone within the past year? If so, by whom?: No Are you DNR?: No Advance Directives: Yes Advance Directives Information Provided: Yes Advance Directives on File: Yes Advance Directives Date on File: 12/23/22 Patient : No : No Poor oral hygiene: No service: No Current occupational status: unemployed Meds Allergies Allergy/AdvReac Type Severity Reaction Status Date / Time adhesive tape (ADHESIVE TAPE) Allergy Intermediate BLISTERS Verified 06/06/25 12:44 Active Medications: Current Medications Lactated Ringer's (Lr) 1,000 mls @ 80 mls/hr IVCONT .[id number] CANDY Last Admin: 06/06/25 13:21 Dose: 80 mls/hr Home Medications ?Medication ?Instructions ?Recorded ?Confirmed ?Last Taken ?Type paroxetine HCl 30 mg tablet 45 mg PO DAILY 10/01/20 06/06/25 06/06/25 History mecobalamin (vitamin B12) 5,000 5,000 mcg PO MOWEFR@1000 08/06/22 06/06/25 08/19/23 History mcg disintegrating tablet rosuvastatin 10 mg tablet 10 mg PO DAILY 08/06/22 06/06/25 08/20/23 History omeprazole 20 mg capsule,delayed 20 mg PO DAILY@0630 10/14/22 06/06/25 06/06/25 History release semaglutide 0.25 mg or 0.5 mg (2 0.25 mg subcut TU 05/25/23 06/06/25 05/23/25 History mg/3 mL) subcutaneous pen injector (Ozempic) digoxin 125 mcg (0.125 mg) tablet 125 mcg PO BEDTIME 03/14/24 06/06/25 06/05/25 History metoprolol succinate 100 mg 100 mg PO DAILY 03/14/24 06/06/25 06/06/25 History tablet,extended release 24 hr Exam Height,Weight and Vital Signs: Height 5 ft 3 in Weight 129.5 kg Last Vital Signs Temp 97.3 F 06/06/25 12:48 Pulse 83 06/06/25 12:48 Resp 16 06/06/25 12:48 BP 168/85 H 06/06/25 12:48 Pulse Ox 97 06/06/25 12:48 O2 Del Method Room Air 06/06/25 12:48 Airway TM Dist: >3cm Neck ROM: Full Heart: irregular Lungs: CTA Assessment and Plan Assessment Anesthesia Assessment: Anesthesia Plan Discussed Final Anesthetic Review Family History of Problems with Anesthesia: No History of Problems with Anesthesia: No (See above. Surgery for gall bladder was in the 1980s. No problems with anesthesia since) NPO: Yes ASA Class: III Final Preanesthetic Review: Meds/Allgs Chart Reviewed, Consent Obtained/Reviewed and Anes Risks/Benef Reviewed Patient Risk: Intermediate Procedure Risk: Intermediate Anesthetic Plan Anesthetic Plan: GA Disposition: Standard PACU
--- NOTE | 2025-06-06 13:29 | HO.ANESPROP2 ---
[facility] Active Problems Active Problems: All Active Problems (Updated 04/19/25 @ 15:08 by Jaime Clifford MD) Persistent atrial fibrillation (Acute) Encounter for monitoring sotalol therapy (Acute) Atrial fibrillation with rapid ventricular response (Acute) A-fib (Acute) PAF (paroxysmal atrial fibrillation) (Acute) COVID-19 (Acute) Chest pain (Acute) CHRISTIANSEN (dyspnea on exertion) (Acute) Chronic diastolic heart failure (Acute) Atrial fibrillation, rapid (Acute) Elevated TSH (Acute) Bronchitis (Acute) Asthma exacerbation (Acute) MDD (major depressive disorder) (Acute) HTN (hypertension) (Acute) Post covid-19 condition, unspecified (Acute) Morbid obesity (Acute) JIMBO on CPAP (Acute) Bronchial asthma (Acute) Past Medical History Medical History History of cardioversion GERD (gastroesophageal reflux disease) Bronchitis Asthma exacerbation PAF (paroxysmal atrial fibrillation) MDD (major depressive disorder) HTN (hypertension) Post covid-19 condition, unspecified Morbid obesity JIMBO on CPAP Bronchial asthma Functional capacity: independent ambulation Family History Family history of problems with anesthesia: No Surgical History Surgical History History of cardioversion Anal fistula Hx of laparoscopic gastric banding History of hysterectomy for cancer H/O umbilical hernia repair History of cholecystectomy H/O colonoscopy History of Problems with Anesthesia: No (See above. Surgery for gall bladder was in the 1980s. No problems with anesthesia since) Social History Social History Household Members: Spouse Housing: House Are you a primary healthcare account manager to a significant other at home: No Do you presently have visiting nurse or other home services: No Alcohol intake: never Patient Tobacco Use Status: Former Tobacco user Tobacco use type: Cigarette Years Smoked: 25 Smoked in Last 30 Days: No Second Hand Smoke Exposure: No Use of substances other than those prescribed or required for medical reasons: No Have you been hit, kicked, punched, or otherwise hurt by someone within the past year? If so, by whom?: No Are you DNR?: No Advance Directives: Yes Advance Directives Information Provided: Yes Advance Directives on File: Yes Advance Directives Date on File: 12/23/22 Patient : No : No Poor oral hygiene: No service: No Current occupational status: unemployed Meds Allergies Allergy/AdvReac Type Severity Reaction Status Date / Time adhesive tape (ADHESIVE TAPE) Allergy Intermediate BLISTERS Verified 06/06/25 12:44 Active Medications: Current Medications Lactated Ringer's (Lr) 1,000 mls @ 80 mls/hr IVCONT .[id number] CANDY Last Admin: 06/06/25 13:21 Dose: 80 mls/hr Home Medications ?Medication ?Instructions ?Recorded ?Confirmed ?Last Taken ?Type paroxetine HCl 30 mg tablet 45 mg PO DAILY 10/01/20 06/06/25 06/06/25 History mecobalamin (vitamin B12) 5,000 5,000 mcg PO MOWEFR@1000 08/06/22 06/06/25 08/19/23 History mcg disintegrating tablet rosuvastatin 10 mg tablet 10 mg PO DAILY 08/06/22 06/06/25 08/20/23 History omeprazole 20 mg capsule,delayed 20 mg PO DAILY@0630 10/14/22 06/06/25 06/06/25 History release semaglutide 0.25 mg or 0.5 mg (2 0.25 mg subcut TU 05/25/23 06/06/25 05/23/25 History mg/3 mL) subcutaneous pen injector (Ozempic) digoxin 125 mcg (0.125 mg) tablet 125 mcg PO BEDTIME 03/14/24 06/06/25 06/05/25 History metoprolol succinate 100 mg 100 mg PO DAILY 03/14/24 06/06/25 06/06/25 History tablet,extended release 24 hr Exam Height,Weight and Vital Signs: Height 5 ft 3 in Weight 129.5 kg Last Vital Signs Temp 97.3 F 06/06/25 12:48 Pulse 83 06/06/25 12:48 Resp 16 06/06/25 12:48 BP 168/85 H 06/06/25 12:48 Pulse Ox 97 06/06/25 12:48 O2 Del Method Room Air 06/06/25 12:48 Airway Mallampati Class: III TM Dist: >3cm Neck ROM: Full Heart: irregular Lungs: CTA Assessment and Plan Assessment Anesthesia Assessment: Anesthesia Plan Discussed and Chart Reviewed Final Anesthetic Review Family History of Problems with Anesthesia: No History of Problems with Anesthesia: No (See above. Surgery for gall bladder was in the 1980s. No problems with anesthesia since) NPO: Yes ASA Class: III Final Preanesthetic Review: Meds/Allgs Chart Reviewed, Consent Obtained/Reviewed and Anes Risks/Benef Reviewed Patient Risk: Intermediate Procedure Risk: Intermediate Anesthetic Plan Anesthetic Plan: GA Disposition: Standard PACU
[2025-06-06] MEDS: Amiodarone/Dextrose 150 MG/100 ML PLAST..BAG 600 MG IV (14:08)
[2025-06-06 14:32] VITALS: BP 128/60; PULSE 76; RESP 12; TEMP 36.6; O2SAT 96
[2025-06-06 14:39] VITALS: BP 129/80; PULSE 67; RESP 12; O2SAT 96
[2025-06-06 14:47] VITALS: BP 136/78; PULSE 66; RESP 13; O2SAT 96
[2025-06-06 15:02] VITALS: BP 141/80; PULSE 70; RESP 13; TEMP 36.6; O2SAT 96
--- NOTE | 2025-06-06 15:45 | HO.CARDIVERS ---
Cardioversion Procedure Note Cardioversion Date of Procedure: 06/06/25 Ordering Provider: Jaime Clifford MD Performing Provider: Jaime Paz MD Indication for Procedure: Persistent Afib, Cardiomyopathy. History: 69 female with Afib and mild cardiomyopathy. Consent: Verbal and Written consent was obtained from the patient before starting. The patient was made aware of the risk of stroke, skin burn and arrhythmia. Procedure: After consent obtained, defib pads were attached and the patient was sedated by the anesthesia team. Once adequate sedation achieved, we gave 200 J synchronized shock given. She reverted to sinus rhythm but went back to Afib. We gave 150 mg IV Amiodarone and tried cardioversion again but the patient didnt convert to sinus. At this stage we decided to stop and load with amiodarone and bring her back for cardioversion in few weeks. Recommendations: Stop Digoxin. Decrease toprol XL to 50 mg daily. Amiodarone loading. We will discuss with EP for ablation.
== END 2025-06-06 15:24 | disposition home or self-care (01) ==
PROVIDERS: PCP Internal Medicine; Visit Provider Internal Medicine Cardiovascular Disease
PROC: 5A2204Z Restoration of Cardiac Rhythm, Single (ICD-10-PCS; principal; 2025-06-06 13:30)
DX: I48.19 Other persistent atrial fibrillation (principal); I42.9 Cardiomyopathy, unspecified; I10 Essential (primary) hypertension; Z79.01 Long term (current) use of anticoagulants; Z79.899 Other long term (current) drug therapy; Z79.85 Long-term (current) use of injectable non-insulin antidiabetic drugs; L23.1 Allergic contact dermatitis due to adhesives; E66.01 Morbid (severe) obesity due to excess calories; Z68.43 Body mass index [BMI] 50.0-59.9, adult; Z98.84 Bariatric surgery status; Z87.891 Personal history of nicotine dependence
CPT/HCPCS: 92960; 93005; J0283; J2003; J2704

== ENCOUNTER → 2025-06-06 11:42 | Outpatient (BNV) | payer MEDICARE, OTHER, SELFPAY | PROVIDERS: PCP Internal Medicine; Visit Provider Internal Medicine Cardiovascular Disease | DX: I48.91 Unspecified atrial fibrillation (principal) | CPT/HCPCS: 92960 ==

== ENCOUNTER 2025-07-12 11:54 | Inpatient (IN) | payer MEDICARE, OTHER, SELFPAY ==
[2025-07-12] VITALS (8 sets, daily range): BP systolic 116–184; BP diastolic 62–95; PULSE 109–123; RESP 13–18; TEMP 36.3–37; O2SAT 93–97; BMI 51.2; BMI 53.1
--- NOTE | ~2025-07-12 | CT_ITS ---
EXAMINATION: CT HEAD WITHOUT CONTRAST CLINICAL INFORMATION: headache on eliquis COMPARISON: None available. TECHNIQUE: Contiguous axial imaging was performed from the skull base to vertex without intravenous administration of contrast. This CT examination was performed using dose optimization techniques as appropriate, variously including the following: *Automated exposure control *Adjustment of mA and/or kV according to patient size (this includes techniques or standardized protocols for targeted exams where dose is matched to indication/reason for exam; i.e. extremities or head) *Use of iterative reconstruction technique DLP: 678 mGy-cm FINDINGS: No acute intracranial hemorrhage, mass effect, midline shift, hydrocephalus or herniation. Silvestre-white matter differentiation is normal. Posterior cranial fossa contents demonstrated no acute hemorrhage or mass effect. Normal position of the cerebellar tonsils. Sellar/suprasellar region demonstrated no gross masses. Calcified plaques in the cavernous supraclinoid segments of the ICAs and M1 segments. Prominence of the extra-axial CSF spaces cerebral sulci and pedicles likely central volume loss. Mucosal thickening without air-fluid levels in the paranasal sinuses. Tympanic cavities and mastoid air cells are aerated. No acute fracture in the bony calvarium. Probable old traumatic deformities in the nasal bones. CT/CT head/brain wo IV con IMPRESSION: No acute intracranial hemorrhage or acute brain abnormality by CT. Electronically signed by: Rafael Gonzalez MD 07/12/2025 01:04 PM EDT
--- NOTE | ~2025-07-12 | XR_ITS ---
EXAMINATION: XR CHEST CLINICAL INFORMATION: weakness, cough COMPARISON: August 20, 2023. TECHNIQUE: Frontal view of the chest was obtained. FINDINGS: Cardiomediastinal silhouette size is enlarged. Mild indistinct margins in the perihilar region. No gross consolidation pleural effusion or pneumothorax. Poor inspiration. Multilevel spondylosis. Degenerative changes in the shoulders. There is radiopaque bandlike in the left upper quadrant abdomen after a 15 degrees angle XR/XR chest 1V IMPRESSION: Cardiomegaly versus pericardial effusion and mild interstitial lung edema. Status post gastric bypass standing. Electronically signed by: Rafael Gonzalez MD 07/12/2025 01:07 PM EDT
--- NOTE | 2025-07-12 12:14 | ECG_ITS ---
Test Reason : DYSPNEA Blood Pressure : */* mmHG Vent. Rate : 118 BPM Atrial Rate : * BPM P-R Int : * ms QRS Dur : 88 ms QT Int : 354 ms P-R-T Axes : * -3 121 degrees QTcB Int : 496 ms Atrial fibrillation with rapid ventricular response Nonspecific ST and T wave abnormality Abnormal ECG When compared with ECG of 06-Jun-2025 14:32, Vent. rate has increased by 60 bpm T wave inversion no longer evident in Anterior leads Referred By: Lisa Mcpherson Electronically Signed By: DAVID LARA
--- NOTE | 2025-07-12 12:17 | PC.NURSE ---
Provider in to eval pt. Pt in Afib rate 110-140. Other VSS - O2 on 2LPM N/C 94-96%. Pt able to speak in complete sentences but states she has had SOB MISTRY and generally not feeling well. Provider aware of Afib. Pt at bedside.
[2025-07-12] MEDS: Metoprolol Succinate ER 50 MG TAB.ER.24H PO (12:26)
[2025-07-12 12:46] LABS: MANUAL DIFF FLAG NO
[2025-07-12 12:50] LABS: Venous Blood Gas Refer to POC result
[2025-07-12 12:51] LABS: VBG HCO3 22 mmol/L (22-26); VBG O2 % Saturation 91.0 %
[2025-07-12 12:54] LABS: COVID-19 Test Positive (Negative); Hematocrit 43.7 % (37.0-47.0); Hemoglobin 14.8 g/dl (12.0-16.0); IDNOW Serial# 55D5AD1C; Imm Gran Abs Auto 0.02 X10*3/uL (0.00-0.03); Imm Gran Pct Auto 0.2 % (0.0-0.4); Lymphocytes Absolute Auto 0.4 X10*3/uL (1.2-4.9); Mean Corpuscular HGB Conc 33.9 g/dl (31.0-35.0); Mean Corpuscular Hemoglobin 29.9 pg (27.0-33.0); Mean Corpuscular Volume 88.3 fL (80.0-98.0); NRBC Abs Auto 0.000 X10*3/uL (0.0-0.012); NRBC Pct Auto 0.0 /100WBC (0.0-0.2); Platelet Count 158 X10*3/uL (160-400); Red Blood Count 4.95 X10*6/uL (4.20-5.50); White Blood Count 8.4 X10*3/uL (4.8-10.8)
[2025-07-12 13:08] LABS: B Type Natriuretic Peptide 440 pg/mL (<100)
[2025-07-12 13:12] LABS: Alanine Aminotransferase 15 U/L (0-31); Albumin Level 3.9 g/dL (3.5-5.0); Alkaline Phosphatase 86 U/L (39-117); Anion Gap 12 (12-20); Aspartate Amino Transferase 22 U/L (5-31); Blood Urea Nitrogen 16 mg/dL (9-16); Calcium 8.7 mg/dL (8.4-10.2); Carbon Dioxide 23 mmol/L (22-29); Chloride 108 mmol/L (96-108); Creatinine Clr Calc Pharmacy 101.2; Estimated Glomerular Filt Rate > 60; Lipase 16 U/L (8-78); Magnesium 2.0 mg/dL (1.6-2.6); Potassium 3.8 mmol/L (3.3-5.1); Sodium 139 mmol/L (135-145); Total Protein 6.3 g/dL (6.5-8.0); Troponin-I High Sensitivity 2.7 ng/L (<3.5-17.0)
[2025-07-12] MEDS: Furosemide 20 MG/2 ML VIAL IVPUSH (13:29)
--- NOTE | 2025-07-12 13:43 | ED.WEAKNESS ---
HPI - Weakness General Chief complaint: Arrhythmia/Palpitations Stated complaint: SOB Time Seen by Provider: 07/12/25 12:06 Source: patient and old records reviewed Mode of arrival: ambulatory Limitations: no limitations History of Present Illness ED Provider: BHARATHI LOPEZ Narrative: 69 yo female PMH of afib on amio recent switch 1 month ago from digoxin, metoprolol, eliquis, dCHF, asthma, bronchitis, HTN, JIMBO on CPAP, hx of one covid vaccine here with c/o feeling foggy yesterday, headaches but not severe just won't go away, no trauma, chills, cough, fatigue, nausea, unable to tolerate her medicaitons this AM due to nausea, body aches, dyspnea. She thinks she is back in afib as well. She states she gets like this when she has had covid before but denies recent travel or sick contacts. MD Complaint: generalized weakness Onset (ago): day(s) (yesterday ) Duration: progressively worsening Location: generalized Migration: none Severity: moderate Relieving factors: rest Exacerbating factors: movement Context: recent illness Associated symptoms: fever/chills, headaches, loss of appetite, nausea/vomiting and shortness of breath Related Data Home Medications ?Medication ?Instructions ?Recorded ?Confirmed paroxetine HCl 30 mg tablet 45 mg PO DAILY 10/01/20 06/06/25 mecobalamin (vitamin B12) 5,000 5,000 mcg PO MOWEFR@1000 08/06/22 06/06/25 mcg disintegrating tablet rosuvastatin 10 mg tablet 10 mg PO DAILY 08/06/22 06/06/25 omeprazole 20 mg capsule,delayed 20 mg PO DAILY@0630 10/14/22 06/06/25 release semaglutide 0.25 mg or 0.5 mg (2 0.25 mg subcut TU 05/25/23 06/06/25 mg/3 mL) subcutaneous pen injector (Ozempic) Previous Rx's ?Medication ?Instructions ?Recorded cholecalciferol (vitamin D3) 25 25 mcg PO DAILY #30 caps 09/17/20 mcg (1,000 unit) capsule multivitamin 1 tab PO DAILY #30 tabs 09/17/20 omega-3 fatty acids 1,250 mg 1,250 mg PO DAILY #30 caps 09/17/20 capsule valsartan 320 mg tablet 320 mg PO DAILY #90 tabs 08/17/23 furosemide 40 mg tablet 40 mg PO DAILY #90 tabs 02/21/25 albuterol sulfate 90 mcg/actuation 2 puff inhalation Q4-6H PRN 03/07/25 aerosol inhaler shortness of breath or wheezing 30 days #8.5 grams fluticasone furoate 200 1 ea inhalation DAILY for asthma 03/27/25 mcg-vilanterol 25 mcg/dose #60 ea inhalation powder (Breo Ellipta) apixaban 5 mg tablet (Eliquis) 5 mg PO BID #180 tabs 05/16/25 amiodarone 200 mg tablet See Rx Instructions PO .COMPLEX 06/06/25 #100 tabs metoprolol succinate 50 mg 50 mg PO DAILY #90 tabs 06/06/25 tablet,extended release 24 hr Allergies Allergy/AdvReac Type Severity Reaction Status Date / Time adhesive tape (ADHESIVE TAPE) Allergy Intermediate BLISTERS Verified 07/12/25 12:09 Review of Systems Review of Systems: Constitutional : pos Fever, pos Chills ENT/Mouth : No sore throat, No Rhinorrhea, No Swallowing Difficulty Eyes: No Eye Pain, No Swelling, No Redness Cardiovascular : No Chest Pain, positive SOB, No Orthopnea, positive Edema Respiratory : No Cough, No Sputum, No Wheezing, positive dyspnea Gastrointestinal : No Nausea, No Vomiting, No Diarrhea, No abdominal Pain, No Hematochezia, No Melena Genitourinary : No Dysuria, No Urinary Frequency, No Hematuria Musculoskeletal : No joint pain, No Myalgias Skin : No Skin Lesions, No rash Neuro : No Weakness, No Numbness, No Dizziness, No Headache All other systems reviewed and are negative [facility] Past Medical History Attestation statement: The following information was validated with the patient. Source: old records reviewed Medical History History of cardioversion GERD (gastroesophageal reflux disease) Bronchitis Asthma exacerbation PAF (paroxysmal atrial fibrillation) MDD (major depressive disorder) HTN (hypertension) Post covid-19 condition, unspecified Morbid obesity JIMBO on CPAP Bronchial asthma Surgical History History of cardioversion Anal fistula Hx of laparoscopic gastric banding History of hysterectomy for cancer H/O umbilical hernia repair History of cholecystectomy H/O colonoscopy Social History Social History Household Members: Spouse Housing: House Are you a primary manager care to a significant other at home: No Do you presently have visiting nurse or other home services: No Alcohol intake: never Patient Tobacco Use Status: Former Tobacco user Tobacco use type: Cigarette Years Smoked: 25 Second Hand Smoke Exposure: No Advance Directives: Yes Advance Directives on File: Yes Advance Directives Date on File: 12/23/22 service: No Current occupational status: unemployed Physical Exam Vital Signs: Vital Signs: Last Vital Signs Temp 98.2 F 07/12/25 12:12 Pulse 117 H 07/12/25 12:26 Resp 13 07/12/25 12:12 BP 116/90 H 07/12/25 13:29 Pulse Ox 93 07/12/25 12:12 O2 Del Method Nasal Cannula 07/12/25 12:12 O2 Flow Rate 2 07/12/25 12:12 Oxygen Flow Rate 2 07/12/25 12:06 BMI result Body Mass Index 51.2 Appearance: Alert. Oriented X3. No acute distress. Eyes: Pupils equal, round and reactive to light. ENT: Pharynx dry MM. Neck: Normal inspection. Neck supple. CVS: tachycardic irregular heart rate and rhythm. Pulses normal. Respiratory: No respiratory distress. Breath sounds rales both bases Abdomen: Soft and nontender. Skin: Skin warm and dry. pale skin color. Extremities: trace pitting edema bilateral LE anterior shins Neuro: Oriented X 3. No motor deficit. No sensory deficit. CN2-12 intact Medications Administered Discontinued Medications Generic Name Dose Route Start Last Admin Trade Name Bev PRN Reason Stop Dose Admin Ceftriaxone Sodium 1 gm 07/12/25 12:17 07/12/25 12:41 Ceftriaxone Sodium 1 Gm Vial IVPUSH 07/12/25 12:18 1 gm ONCE ONE Administration Furosemide 20 mg 07/12/25 13:11 07/12/25 13:29 Furosemide 20 Mg/2 Ml Vial IVPUSH 07/12/25 13:12 20 mg ONCE ONE Administration Protocol Acetaminophen 1,000 mg in 100 mls @ 400 mls/hr 07/12/25 12:17 07/12/25 13:13 Ofirmev IV 07/12/25 12:31 Infused ONCE ONE Infusion Metoprolol Succinate 50 mg 07/12/25 12:20 07/12/25 12:26 Metoprolol Succinate Er 50 Mg Tab.Er.24h PO 07/12/25 12:21 50 mg ONCE ONE Administration Protocol Medical Decision Making Medical Decision Making [facility] Narrative: 69 yo female PMH of afib on amio recent switch 1 month ago from digoxin, metoprolol, eliquis, dCHF, asthma, bronchitis, HTN, JIMBO on CPAP, hx of one covid vaccine here with c/o viral like illness, headaches - CT head ordered given eliquis to rule out ICH, afib with rvr but low 110s now so will start on oral metoprolol as she couldn't take her PO medications and given concern for CHF I am ordered IV lasix. Given her presentation I suspect she has viral illness or URI and CHF. Likely admit. Patient aware. Differential Diagnosis Differential Diagnoses: The differential diagnosis associated with the presentation includes covid, chf, afib with RVR Admission/Observation Consideration of admission/observation: Escalation of care including admission/observation considered admit for COVID, afib with RVR, CHF - hospitalist accepts given tylenol, oral metoprolol, IV lasix in ED Consult Healthcare Provider Management of the patient was discussed with: Hospitalist (will admit) Lab Data [facility] Lab Attestation statement: I reviewed the patient's lab results. 07/12/25 12:38 07/12/25 12:38 Labs: Lab Results 07/12/25 07/12/25 Range/Units 12:38 12:46 WBC 8.4 (4.8-10.8) X10*3/uL RBC 4.95 (4.20-5.50) X10*6/uL Hgb 14.8 (12.0-16.0) g/dl Hct 43.7 (37.0-47.0) % MCV 88.3 (80.0-98.0) fL MCH 29.9 (27.0-33.0) pg MCHC 33.9 (31.0-35.0) g/dl RDW 13.5 (11.0-16.0) % Plt Count 158 L (160-400) X10*3/uL MPV 11.1 (9.4-12.3) fL Immature Gran % (Auto) 0.2 (0.0-0.4) % Neut % (Auto) 87.1 H (45-73) % Lymph % (Auto) 4.4 L (20-40) % [place] % (Auto) 7.5 (2-11) % Eos % (Auto) 0.6 (0-4) % Baso % (Auto) 0.2 (0-2) % Lymph # (Auto) 0.4 L (1.2-4.9) X10*3/uL [place] # (Auto) 0.6 (0.1-1.2) X10*3/uL Eos # (Auto) 0.1 (0.0-0.4) X10*3/uL Baso # (Auto) 0.0 (0.0-0.2) X10*3/uL Abs Immat Gran (auto) 0.02 (0.00-0.03) X10*3/uL Absolute Neuts (auto) 7.3 (2.0-8.3) x10*3/uL Absolute Nucleated RBC 0.000 (0.0-0.012) X10*3/uL Nucleated RBC % (auto) 0.0 (0.0-0.2) /100WBC VBG pH 7.44 H (7.32-7.43) VBG pCO2 32 mmHg VBG pO2 65 mmHg VBG HCO3 22 (22-26) mmol/L VBG O2 Saturation 91.0 % VBG Base Excess -0.9 mmol/L Sodium 139 (135-145) mmol/L Potassium 3.8 (3.3-5.1) mmol/L Chloride 108 (96-108) mmol/L Carbon Dioxide 23 (22-29) mmol/L Anion Gap 12 (12-20) BUN 16 (9-16) mg/dL Creatinine 0.66 (0.5-1.4) mg/dL Estim Creat Clear Calc 101.2 Estimated GFR > 60 Random Glucose 170 H (60-115) mg/dL Lactic Acid 1.3 (0.5-2.0) mmol/L Calcium 8.7 (8.4-10.2) mg/dL Magnesium 2.0 (1.6-2.6) mg/dL Total Bilirubin 2.4 H (0.0-1.0) mg/dL Direct Bilirubin 0.6 H (0.0-0.5) mg/dL AST 22 (5-31) U/L ALT 15 (0-31) U/L Alkaline Phosphatase 86 (39-117) U/L Troponin I High Sens 2.7 (<3.5-17.0) ng/L C-Reactive Protein 0.40 (< or = 0.50) mg/dL B-Natriuretic Peptide 440 H (<100) pg/mL Total Protein 6.3 L (6.5-8.0) g/dL Albumin 3.9 (3.5-5.0) g/dL Lipase 16 (8-78) U/L Procalcitonin 0.04 ng/mL COVID-19 (BOLIVAR) Positive A (Negative) COVID-19 Clin Com See Note Independent Interpretation I performed an independent interpretation of an: EKG, Plain X-Ray (cardiomegaly - but trace effusion on bedside ECHO) and CT Scan (no ICH) Interpretation: Rate: 118 Rhythm: afib [place]: normal Normal QRS complex. ST T wave : nonspecific ST T wave changes lateral leads, no ST, poor R wave progression qTC: 496 prior studies: no sig change from priors The study has been interpreted contemporaneously by me. . Radiology Impression Discussion of test interpretation with radiology: I have reviewed the radiologist's reading. Independent Historian Clinical information obtained from an independent historian. History obtained from or confirmed by: Spouse and EMS External Record Review External record reviewed: Inpatient record and Outpatient record Procedures Procedure Narrative Procedure Narrative: EMERGENCY ULTRASOUND INTERPRETATION-Limited Echocardiography? The study reveals:? Impression:trace pericardial effusion Emergent Cardiac for Indication:? Views Used: A4, SX Pericardial Effusion/Tamponade Findings: trace no tamponade Global LV Fxn: decreased Performed by: BHARATHI Date: 07/12/25 Time: 144pm. CPT:36872; Reference Codes? [email or web address]://bit.ly/[email or web address]] Discharge Plan Discharge Clinical Impression: Atrial fibrillation with rapid ventricular response, COVID-19 CHF (congestive heart failure) Qualifiers: Heart failure type: unspecified Heart failure chronicity: acute on chronic Qualified Code(s): I50.9 - Heart failure, unspecified Patient Disposition: Admitted As Inpatient
[2025-07-12 13:45] LABS: Procalcitonin 0.04 ng/mL
[2025-07-12 14:34] LABS: Appearance Urine Clear; Glucose Urine UA Negative (Negative); PH 6.0 (5.0-9.0); Specific Gravity - Urine 1.015 (1.005-1.025); UMIC TRIGGER UACC YES
[2025-07-12 14:39] LABS: UACC Culture Trigger YES
--- NOTE | 2025-07-12 14:43 | PM.IMHP ---
History of Present Illness Date of Service: 07/12/25 Attending physician on admission: Paola Durand Chief Complaint: Palpitations and headache Gabriela Perea is a 69 years old woman with past medical history significant for atrial fibrillation on Eliquis, HFrEF (45-50%), JIMBO on CPAP, essential hypertension, bronchial asthma, morbid obesity and GERD presents to the ED complaining of palpitations, nausea, vomiting, GI upset, shortness on breath and headache. These symptoms started last night. She has not been able to sleep and was unable to use her CPAP due to feeling unwell. She denied fever, chills or diarrhea. She did not report any acute genitourinary symptoms. Denied history of tobacco smoking, alcohol abuse or illicit drug use. She did not take her amiodarone Eliquis this morning. In the ED, she was found to have tachycardia consistent with rapid AFib. Other vital signs are stable. She was placed on supplemental oxygen via nasal cannula. Blood workup showed no leukocytosis or lactic acidosis. Hemoglobin is 14.8 and platelets are 158. PH is 7.44 pCO2 32. There are no electrolyte imbalances. BUN 16 and creatinine 0.66. Glucose is 170. BNP is 140. Total bilirubin is 2.4. Other LFTs are normal as well as lipase. Procalcitonin 0.04. Head CT scan showed no acute intracranial hemorrhage or abnormalities. CXR showed cardiomegaly versus pericardial effusion and mild interstitial lung edema. ECG showed atrial fibrillation with rapid ventricular response, heart rate 118 beats per minute and nonspecific ST and T-wave abnormalities. ED tx: Acetaminophen 1 g IV, ceftriaxone 1 g IV, metoprolol XL 50 mg and furosemide 20 mg IV. Review of Systems Review of Systems: All 12 systems were reviewed and normal except as noted in HPI. [facility] Medical History History of cardioversion GERD (gastroesophageal reflux disease) Bronchitis Asthma exacerbation PAF (paroxysmal atrial fibrillation) MDD (major depressive disorder) HTN (hypertension) Post covid-19 condition, unspecified Morbid obesity JIMBO on CPAP Bronchial asthma Surgical History History of cardioversion Anal fistula Hx of laparoscopic gastric banding History of hysterectomy for cancer H/O umbilical hernia repair History of cholecystectomy H/O colonoscopy Social History Household Members: Spouse Housing: House Are you a primary clinical care leader to a significant other at home: No Do you presently have visiting nurse or other home services: No Alcohol intake: never Patient Tobacco Use Status: Former Tobacco user Tobacco use type: Cigarette Years Smoked: 25 Second Hand Smoke Exposure: No Advance Directives: Yes Advance Directives on File: Yes Advance Directives Date on File: 12/23/22 Nutrition Risks: No Nutritional Risk service: No Current occupational status: unemployed Meds Allergies Allergy/AdvReac Type Severity Reaction Status Date / Time adhesive tape (ADHESIVE TAPE) Allergy Intermediate BLISTERS Verified 07/12/25 12:09 Active Medications: Current Medications Acetaminophen (Acetaminophen 325 Mg Tablet) 975 mg PO Q6H PRN PRN Reason: Pain, Mild 1-3,fever,headache Calcium Carbonate (Calcium Carbonate 750 Mg Tab.Chew) 750 mg PO Q4H PRN PRN Reason: Heartburn Dexamethasone Sodium Phosphate (Dexamethasone Sod Phosphate 4 Mg/Ml Vial) 6 mg IVPUSH DAILY CANDY Magnesium Hydroxide (Milk Of Magnesia 30 Ml Oral.Susp) 30 ml PO DAILY PRN PRN Reason: Constipation Melatonin (Melatonin 3 Mg Tablet) 6 mg PO BEDTIME PRN PRN Reason: Insomnia Sodium Chloride (0.9 % Sodium Chloride Flush 3 Ml Syringe) 3 ml IVFLUSH QSHIFT CANDY Home Medications ?Medication ?Instructions ?Recorded ?Confirmed ?Last Taken ?Type paroxetine HCl 30 mg tablet 45 mg PO DAILY 10/01/20 07/12/25 07/11/25 History mecobalamin (vitamin B12) 5,000 5,000 mcg PO DAILY 08/06/22 07/12/25 07/11/25 History mcg disintegrating tablet rosuvastatin 10 mg tablet 10 mg PO BEDTIME 08/06/22 07/12/25 07/11/25 History omeprazole 20 mg capsule,delayed 20 mg PO DAILY@0630 10/14/22 07/12/25 07/11/25 History release amiodarone 200 mg tablet 200 mg PO DAILY 07/12/25 07/12/25 07/11/25 History semaglutide 1 mg/dose (4 mg/3 mL) 4 mg subcut FR 07/12/25 07/12/25 07/07/25 History subcutaneous pen injector (Ozempic) Physical Exam Vital Signs and Narrative: Vital Signs: Last Vital Signs Temp 98.6 F 07/12/25 14:08 Pulse 123 H 07/12/25 14:08 Resp 15 07/12/25 14:08 BP 139/82 07/12/25 14:08 Pulse Ox 96 07/12/25 14:08 O2 Del Method Nasal Cannula 07/12/25 14:08 O2 Flow Rate 2 07/12/25 12:12 Oxygen Flow Rate 2 07/12/25 12:06 BMI result Body Mass Index 51.2 Constitutional - Awake and Alert, No apparent distress. Nasal cannula in place. Obese. HEENT - PER, EOMI Heart - tachycardic, regular rhythm, no murmurs Lungs - Normal lung expansion, Normal respiratory effort, No respiratory distress. Tachypnea. Decreased breath sound at bases. No wheezing or crackles. Abdomen - NT / ND; +BS; No rebound or guarding Extremities - no calf tenderness bilaterally, no swelling Musculoskeletal - Normal inspection, normal ROM Skin - Warm/Dry Neurological - Alert & oriented x3. Moving all extremities spontaneously. Normal speech. Psychological - Appropriate affect Results Labs 07/12/25 12:38 07/12/25 12:38 Labs: Laboratory Results - last 24 hr 07/12/25 07/12/25 07/12/25 12:38 12:46 14:23 MCV 88.3 MCH 29.9 MCHC 33.9 RDW 13.5 Plt Count 158 L MPV 11.1 Immature Gran % (Auto) 0.2 Neut % (Auto) 87.1 H Lymph % (Auto) 4.4 L [place] % (Auto) 7.5 Eos % (Auto) 0.6 Baso % (Auto) 0.2 Lymph # (Auto) 0.4 L [place] # (Auto) 0.6 Eos # (Auto) 0.1 Baso # (Auto) 0.0 Abs Immat Gran (auto) 0.02 Absolute Neuts (auto) 7.3 Absolute Nucleated RBC 0.000 Nucleated RBC % (auto) 0.0 VBG pH 7.44 H VBG pCO2 32 VBG pO2 65 VBG HCO3 22 VBG O2 Saturation 91.0 VBG Base Excess -0.9 Anion Gap 12 Estim Creat Clear Calc 101.2 Estimated GFR > 60 Random Glucose 170 H Lactic Acid 1.3 Calcium 8.7 Magnesium 2.0 Total Bilirubin 2.4 H Direct Bilirubin 0.6 H AST 22 ALT 15 Alkaline Phosphatase 86 C-Reactive Protein 0.40 B-Natriuretic Peptide 440 H Total Protein 6.3 L Albumin 3.9 Lipase 16 Procalcitonin 0.04 Urine Color Yellow Urine Appearance Clear Urine pH 6.0 Ur Specific [place] 1.015 Urine Protein Negative Urine Glucose (UA) Negative Urine Ketones Negative Urine Blood Negative Urine Nitrite Positive H Ur Leukocyte Esterase Negative Urine RBC 0-2 Urine WBC 0-5 Ur Squamous Epith Cells 3-5 Urine Bacteria Trace Hyaline Casts 0-2 COVID-19 (BOLIVAR) Positive A COVID-19 Clin Com See Note Imaging Radiologist's Impressions: Impressions Head CT 07/12/25 11:48 IMPRESSION: No acute intracranial hemorrhage or acute brain abnormality by CT. Electronically signed by: Rafael Gonzalez MD 07/12/2025 01:04 PM EDT RP Chest X-Ray 07/12/25 11:51 IMPRESSION: Cardiomegaly versus pericardial effusion and mild interstitial lung edema. Status post gastric bypass standing. Electronically signed by: Rafael Gonzalez MD 07/12/2025 01:07 PM EDT RP Assessment and Plan (1) Atrial fibrillation with rapid ventricular response: Status: Acute (2) COVID-19: Status: Acute Plan Gabriela Perea is a 69 y/o woman presents Atrial fibrillation with rapid ventricular response triggered by COVID-19 infection causing mild interstitial lung edema in the setting of underlying bronchial asthma and HFrEF (45-50%). ?Pericardial effusion. Telemetry. Supplemental oxygen to keep O2 sats above 90%. Airborne/contact precautions. Received metoprolol 50 mg XL by ED. Will give amiodarone and Eliquis now (pt did not take morning doses) then daily/b.i.d.. Continue furosemide. Obtain TTE. Start treatment with Decadron 6 mg IV daily. Bronchodilator therapy with Xopenex as needed and Breo. Hyperlipidemia. Continue statin. Essential hypertension. Continue valsartan and metoprolol. JIMBO. Nocturnal CPAP. GERD. Continue PPI. Morbid obesity. BMI 51.2 kg/m2. On Ozempic. Depression. Continue paroxetine. Code status: Full DVT prophylaxis: On Eliquis The patient will need hospitalization for at least 2 midnights for atrial fibrillation with rapid ventricular response triggered by COVID-19 management and treatment with close cardiac monitoring and rate control agents Quality Stroke Does the patient have a stroke diagnosis?: No VTE Prior VTE?: No VTE Risk Level:: Medical - moderate - high VTE Device Contraindication: Treatment Not Indicated VTE Drug Contraindication: N/A - Med Ordered
--- OUTSIDE RECORDS SUMMARY | 2025-07-12 14:49 | XMS_ITS | Encounter Summary ---
Author Organization [facility] Address [address] [place] [id number] Phone Care Team Providers Care Exhaust And Muffler Repairer Name Role Phone Ang Bernstein MD Primary Care Provider [phone] Ang Bernstein MD Unavailable [phone] Ela Alarcon RN Unavailable Encounter Details Date Type Department Care Team (Late st Contact Info) Description 03/25/2023 Telephone [facility] [address] [place] [address] Barbara Barrientos RN [email or web address] Social History Tobacco Use Types Packs/Day Years Used Date Smoking Tobacco: Former Cigarettes 1.5 21.4 0 06/16/1971 - 1992 Smokeless Tobacco: Never Alcohol Use Standard Drinks/Week Comments Yes 0 (1 standard drink = 0.6 oz pur e alcohol) 1 glass of wine/month if that Education Answer Date Recorded Are you interested in more education? Not on carmina e 03/12/2023 Are you concerned about learning? Not on file 03/12/2023 No 03/12/2023 No 03/12/2023 Comments No Sex and Gender Information Value Date Recorded Sex Assigned at Not on file Legal Sex Female 9:56 PM EDT Gender Identity Not on file Sexual Orientation Not on file documented as of this encounter Plan of Treatment Upcoming Encounters Date Type Department Care Team (Late st Contact Info) Description 08/02/2025 11:00 AM EDT Office Visit [facility] Internal Medicine [address] [place] [address] Ang Bernstein MD [address] [place] [address] documented as of this encounter Visit Diagnoses Not on filedocumented in this encounter Additional Health Concerns Assessment Noted Time PHQ-9 Depression Total Score: 6 04/22/20 22 3:50 PM EDT PHQ-2 Depression Total Score: 2 04/22/20 22 3:50 PM EDT documented as of this encounter Care Teams Exhaust And Muffler Repairer Relationship Specialty Start Date End Date Ang Bernstein MD [address] [place] [address] PCP - General 10/15/17 Ang Bernstein MD [address] [place] [address] Insurance Assigned Provider 02/20/24 Ela Alarcon, RN [address] [place] [address] [phone] [email or web address] Shipfitter ApprenticeVessel Operator 06/15/23 07/05/23 documented as of this encounter Additional Source Comments The information contained in this document represents components of the legal health record. It is not the complete legal health record.[facility]
--- OUTSIDE RECORDS SUMMARY | 2025-07-12 14:49 | XMS_ITS | Encounter Summary ---
Author Organization [facility] Address [address] [facility] [address] [place] [address] Phone Care Team Providers Care Coremaker Pipe Name Role Phone Ang Bernstein MD Unavailable Renu Araujo BAG LINER Unavailable Josi Quinonez BAG LINER Unavailable Becka Brar BAG LINER Unavailable [phone] Bryce Steve MD Unavailable Ang Bernstein MD Primary Care Provider [phone] Ang Bernstein MD Unavailable Ela Alarcon RN Unavailable Encounter Details Date Type Department Care Team (Late st Contact Info) Description 06/23/2019 Ancillary Orders [facility] [address] [place] [address] Jelena Sow MD [address] [place] [address] [facility] [place], [place] [id number] [email or web address] Right ankle pain, unspecified chronicity Social History Tobacco Use Types Packs/Day Years Used Date Smoking Tobacco: Former Cigarettes 1.5 21.4 0 06/16/1971 - 1992 Smokeless Tobacco: Never Comments:quit in 1992 Alcohol Use Standard Drinks/Week Comments Yes 1 (1 standard drink = 0.6 oz pur e alcohol) Comments Unknown Sex and Gender Information Value Date Recorded Sex Assigned at Not on file Legal Sex Female 9:56 PM EDT Gender Identity Not on file Sexual Orientation Not on file documented as of this encounter Plan of Treatment Upcoming Encounters Date Type Department Care Team (Late st Contact Info) Description 08/02/2025 11:00 AM EDT Office Visit [facility] Internal Medicine [address] [place] [address] Ang Bernstein MD [address] [place] [address] [email or web address] documented as of this encounter Results * XR ANKLE 3 OR MORE VIEWS (RIGHT) (06/23/2019 12:20 PM EDT) Narrative SYSTEMGENERATED, DOCUMENTATION - 06/23/2019 12:21 PM EDT This image report has been auto-finalized and has not been read by a Radiologist. Interpretation has been included in the provider encounter note for this date of service. us Jelena Sow MD IMG XR LOWER EXTREMITY Fi nal Result documented in this encounter Visit Diagnoses Diagnosis Right ankle pain, unspecified chronicity Right ankle pain, unspecified chronicity documented in this encounter Additional Health Concerns Infection Onset Date Last Indicated Resolved Time CoV-Presumed 06/13/2022 06/13/2022 07/04/2022 1:21 AM EDT Assessment Noted Time PHQ-2 Depression Total Score: 0 12/10/19 8:40 AM EST documented as of this encounter Care Teams Coremaker Pipe Relationship Specialty Start Date End Date Ang Bernstein MD [address] [place] [address] PCP - General 10/15/17 Ang Bernstein MD [address] [place] [address] Historical LMR Provider 09/05/17 09/13/19 Renu Araujo, BAG LINER [address] [place] [address] [email or web address] Historical LMR Provider 09/05/1709/13 Josi Quinonez, BAG LINER [address] [address] Historical LMR Provider 09/05/1709/13 Becka Brar NP [address] [address] Historical LMR Provider 09/05/17 09/13/19 [place] [address] Historical LMR Provider 09/05/17 Ang Bernstein MD [address] [place] [address] Insurance Assigned Provider 02/20/24 Ela Alarcon, RN [address] [place] [id number] [employer] Stapling Machine OperatorTubing Tester 06/15/23 07/05/23 documented as of this encounter Additional Source Comments The information contained in this document represents components of the legal health record. It is not the complete legal health record.[facility]
--- OUTSIDE RECORDS SUMMARY | 2025-07-12 14:49 | XMS_ITS | Encounter Summary ---
Author Organization [facility] Address [address] [employer] [facility] [address] [place] [address] Phone Care Team Providers Care Cardiac Tech Name Role Phone Ang Bernstein MD Primary Care Provider [phone] Ang Bernstein MD Unavailable Encounter Details Date Type Department Care Team (Late st Contact Info) Description 01/04/2025 Procedure Pass [facility], [address] [address] Social History Tobacco Use Types Packs/Day Years [...] on file 03/12/2023 No 03/12/2023 No 03/12/2023 Digital Access Answer Date Recorded No 04/09/2023 No 04/09/2023 Reliable internet access at home? Not on file 04/09/2023 Device with a working camera? Not on file Intimate Partner Violence Answer Date R ecorded Denied Basic Needs Not on file 07/21/2024 In the past 12 months have y ou been in a relationship with a person who hurts, threatens, or tries to control you? No 07/21/2024 Worried food would run out Not on file 07/21 In the past 12 months have y ou been in a relationship with a person who hurts, threatens, or tries to control you? No 07/21/2024 Comments No Sex and Gender Information Value Date Recorded Sex Assigned at Not on file Legal Sex Female 9:56 PM EDT Gender Identity Not on file Sexual Orientation Not on file documented as of this encounter Plan of Treatment Upcoming Encounters Date Type Department Care Team (Late st Contact Info) Description 08/02/2025 11:00 AM EDT Office Visit [facility] Internal Medicine [address] [place], [place] [phone] Ang Bernstein MD [address] [place] [address] documented as of this encounter Visit Diagnoses Not on filedocumented in this encounter Additional Health Concerns Assessment Noted Time PHQ-9 Depression Total Score: 6 04/22/20 22 3:50 PM EDT PHQ-2 Depression Total Score: 2 07/21/20 24 6:18 PM EDT documented as of this encounter Care Teams Cardiac Tech Relationship Specialty Start Date End Date Ang Bernstein MD [address] [place] [address] PCP - General 10/15/17 Ang Bernstein MD [address] [place] [address] Insurance Assigned Provider 02/20/24 documented as of this encounter Additional Source Comments The information contained in this document represents components of the legal health record. It is not the complete legal health record.[facility]
--- OUTSIDE RECORDS SUMMARY | 2025-07-12 14:49 | XMS_ITS | Encounter Summary ---
Author Organization [facility] Address [address] [place] [address] Phone Care Team Providers Care Sales Communications Manager Name Role Phone Ang Bernstein MD Primary Care Provider [phone] Ang Bernstein MD Unavailable [phone] Encounter Details Date Type Department Care Team (Late st Contact Info) Description 03/22/2025 Documentation [facility] Internal Medicine [address] [place], [place] [phone] Ang Bernstein MD [address] [place] [address] [email or web address] Social History Tobacco Use Types Packs/Day Years [...] Description 08/02/2025 11:00 AM EDT Office Visit [facility] Internal Medicine [address] [place] [address] Ang Bernstein MD [address] [place] [address] [email or web address] documented as of this encounter Procedures Procedure Name Priority Date/Time Associated Diagnosis Comments MAMMOGRAPHY Routine 04/20/2024 documented in this encounter Results * MAMMOGRAPHY FOR RESULT ENTRY ONLY (04/20/2024) Mammogram BI-RADS 1 Negative EXTERNAL NON-INTERFACE D REF LAB us Historical Provider HEALTH MAINTENANCE Final Result EXTERNAL NON-INTERFACED REF LAB documented in this encounter Visit Diagnoses Not on filedocumented in this encounter Additional Health Concerns Assessment Noted Time PHQ-9 Depression Total Score: 6 04/22/20 22 3:50 PM EDT PHQ-2 Depression Total Score: 2 07/21/20 24 6:18 PM EDT documented as of this encounter Care Teams Sales Communications Manager Relationship Specialty Start Date End Date Ang Bernstein MD [address] [place] [address] [email or web address] PCP - General 10/15/17 Ang Bernstein MD [address] [place] [address] [email or web address] Insurance Assigned Provider 02/20/24 documented as of this encounter Additional Source Comments The information contained in this document represents components of the legal health record. It is not the complete legal health record.[facility]
--- OUTSIDE RECORDS SUMMARY | 2025-07-12 14:49 | XMS_ITS | Encounter Summary ---
Author Organization [facility] Address [address] [employer] [facility] [address] [place] [address] Phone Care Team Providers Care Campaign Manager Name Role Phone Ang Bernstein MD Primary Care Provider [phone] Ang Bernstein MD Unavailable [phone] Encounter Details Date Type Department Care Team (Late st Contact Info) Description 01/04/2025 Procedure Pass [facility], [address] [address] Social History Tobacco Use Types Packs/Day Years [...] Description 08/02/2025 11:00 AM EDT Office Visit [facility] Internal Medicine [address] [place], [place] [phone] Ang Bernstein MD [address] [place] [address] documented as of this encounter Visit Diagnoses Not on filedocumented in this encounter Additional Health Concerns Assessment Noted Time PHQ-9 Depression Total Score: 6 04/22/20 22 3:50 PM EDT PHQ-2 Depression Total Score: 2 07/21/20 24 6:18 PM EDT documented as of this encounter Care Teams Campaign Manager Relationship Specialty Start Date End Date Ang Bernstein MD [address] [place] [address] PCP - General 10/15/17 Ang Bernstein MD [address] [place] [address] Insurance Assigned Provider 02/20/24 documented as of this encounter Additional Source Comments The information contained in this document represents components of the legal health record. It is not the complete legal health record.[facility]
--- OUTSIDE RECORDS SUMMARY | 2025-07-12 14:49 | XMS_ITS | Encounter Summary ---
Author Organization [facility] Address [address] [place] [address] Phone Care Team Providers Care Supervisor Intermediates Name Role Phone Ang Bernstein MD Primary Care Provider [phone] Ang Bernstein MD Unavailable [phone] Encounter Details Date Type Department Care Team (Late st Contact Info) Description 12/20/2024 Procedure Pass [facility], [facility] - [address] [address] Social History Tobacco Use Types Packs/Day Years [...] Description 08/02/2025 11:00 AM EDT Office Visit [facility] Internal Medicine [address] [place], [place] [phone] Ang Bernstein MD [address] [place] [address] documented as of this encounter Visit Diagnoses Not on filedocumented in this encounter Additional Health Concerns Assessment Noted Time PHQ-9 Depression Total Score: 6 04/22/20 22 3:50 PM EDT PHQ-2 Depression Total Score: 2 07/21/20 24 6:18 PM EDT documented as of this encounter Care Teams Supervisor Intermediates Relationship Specialty Start Date End Date Ang Bernstein MD [address] [place] [address] PCP - General 10/15/17 Ang Bernstein MD [address] [place] [address] Insurance Assigned Provider 02/20/24 documented as of this encounter Additional Source Comments The information contained in this document represents components of the legal health record. It is not the complete legal health record.[facility]
--- OUTSIDE RECORDS SUMMARY | 2025-07-12 14:49 | XMS_ITS | Encounter Summary ---
Author Organization [facility] Address [address] [facility] [address] [place] [address] Phone Care Team Providers Care Escalator Attendant Name Role Phone Ang Bernstein MD Unavailable Renu Araujo BUILDING DISMANTLER Unavailable [phone] Josi Quinonez BUILDING DISMANTLER Unavailable [phone] Becka Brar BUILDING DISMANTLER Unavailable [phone] Bryce Steve MD Unavailable [phone] Ang Bernstein MD Primary Care Provider [phone] Ang Bernstein MD Unavailable [phone] Ela Alarcon RN Unavailable Encounter Details Date Type Department Care Team (Late st Contact Info) Description 06/23/2019 Ancillary Orders [facility] Medicine [address] [place] [address] Jelena Sow MD [address] [place] [address] [facility], [facility] [place] [address] Social History Tobacco Use Types Packs/Day Years [...] Description 08/02/2025 11:00 AM EDT Office Visit [facility] Internal Medicine [address] [place] [address] Ang Bernstein MD [address] [place] [address] [email or web address] documented as of this encounter Visit Diagnoses Not on filedocumented in this encounter Additional Health Concerns Infection Onset Date Last Indicated Resolved Time CoV-Presumed 06/13/2022 06/13/2022 07/04/2022 1:21 AM EDT Assessment Noted Time PHQ-2 Depression Total Score: 0 12/10/19 8:40 AM EST documented as of this encounter Care Teams Escalator Attendant Relationship Specialty Start Date End Date Ang Bernstein MD [address] [place] [address] PCP - General 10/15/17 Ang Bernstein MD [address] [place] [address] Historical LMR Provider 09/05/17 09/13/19 Renu Araujo NP [address] [place] [address] [email or web address] Historical LMR Provider 09/05/1709/13 Josi Quinonez NP [facility] [address] [place] [address] Historical LMR Provider 09/05/1709/13 Becka Brar NP [address] [facility] [address] [place] [address] Historical LMR Provider 09/05/17 09/13/19 Bryce Steve MD [address] [place] [address] Historical LMR Provider 09/05/17 Ang Bernstein MD [address] [place] [address] Insurance Assigned Provider 02/20/24 Ela Alarcon, RN [address] [place] [address] [email or web address] [facility] 06/15/23 07/05/23 documented as of this encounter Additional Source Comments The information contained in this document represents components of the legal health record. It is not the complete legal health record.[facility]
[2025-07-12] MEDS: 0.9 % Sodium Chloride Flush 3 ML SYRINGE IVFLUSH ×2 (15:36→21:02)
--- NOTE | 2025-07-12 16:50 | PHA.MEDREC ---
Addendum entered by Mian Almendarez RPh 07/12/25 18:29: MED REC REVIEWED BY [facility] Original Note: Pharmacy Consult ? Medication Reconciliation Pharmacy has completed the medication reconciliation. Spoke with pt and she confirmed her medications. Pt confirmed: she no longer takes Digoxin (pt stopped it in the last month) and instead was switched by her Dr to Amiodarone 200mg, pt takes her Vitamin B-12 once a day now instead of how she was doing it MOWEFR and she confirmed her Ozempic 4mg injection once a week on Fridays and confirmed she took LT Fr 07/07.
[2025-07-13] VITALS (9 sets, daily range): BP systolic 137–155; BP diastolic 74–103; PULSE 68–99; RESP 12–24; TEMP 35.8–36.6; O2SAT 93–100
--- NOTE | 2025-07-13 07:00 | CA_ITS ---
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 The calculated ejection fraction is 51% by biplane method. - The left atrium is severely dilated. - There is moderate mitral annular calcification. There is mild mitral valve regurgitation. - There is mild dilatation of the ascending aorta measuring 4.10 cm. Findings Left Ventricle Normal left ventricular cavity size. The left ventricular systolic function is mildly decreased. The calculated ejection fraction is 51% by biplane method. There is mild global hypokinesis. Diastolic function is indeterminate on the basis of available data. Focal hypertrophy of the basal septum. Right Ventricle Mildly increased right ventricular cavity size. There is low normal right ventricular systolic function. Atria The left atrium is severely dilated. The right atrium is mildly dilated. Aortic Valve The aortic valve was not well visualized. There is mild calcification of the aortic valve. There is no aortic valve stenosis. There is no aortic valve regurgitation. Mitral Valve There is moderate mitral annular calcification. There is mild mitral valve regurgitation. There is no mitral valve stenosis. Pulmonic Valve The pulmonic valve is likely normal. Tricuspid Valve There is trace tricuspid valve regurgitation. Mild pulmonary hypertension is present. Great Vessels The aortic arch is normal in size. There is mild dilatation of the ascending aorta measuring 4.10 cm. Venous The inferior vena cava is dilated and collapses less than 50% with inspiration. Pericardium/Pleural There is no evidence of pericardial effusion. Prior Study Comparison No significant change compared to prior study dated: 05/18/2025. Measurements 2D Linear Measurements IVSd: 1.06 0.6-0.9/0.6-1.0 cm LVIDd: 4.93 3.9-5.3/4.2-5.9 cm LVIDd Index: 2.20 2.4-3.2/2.2-3.1 cm/m2 LVIDs: 3.59 2.0-3.6 cm LVPWd: 1.10 0.7-1.1 cm LA Diam: 5.80 2.7-3.8/3.0-4.0 cm LAIDs Index: 2.59 1.5-2.3 cm/m2 LV Mass: 246.04 67-162/88-224 g LV Mass Index: 109.84 43-95/49-115 g/m2 LVOT Diam: 2.10 3.0+(-)1.3 cm 2D Systolic Function EF 4C: 47.40 >55% EF 2C: 52.90 >55% EF BiP: 50.80 >55% Mitral Valve MV VTI: 0.29 MV Pk Saran: 1.35 MV Mn Saran: 0.72 MV Pk Grad: 7.00 MV Mn Grad: 3.00 MV Pk E: 1.27 MV Decel Time: 175.00 E'Lateral: 10.10 E'Medial: 5.80 E/E' Med: 21.90 E/E' Lat: 12.60 PHT: 51.00 MVA PHT: 4.31 MVA Continuity: 1.68 Decel Glacier: 7.27 MR Vol - PW Dopp: 7.68 MR VTI: 1.92 MR ERO: 4.00 MR Alias Saran: 0.39 MR RAD: 0.30 Aortic Valve AoV Pk Saran: 1.22 AoV Mn Saran: 0.95 AoV VTI: 0.26 AoV Pk Grad: 6.00 Aov Mn Grad: 4.00 PATRICIA Cont.VTI: 1.88 LVOT LVOT Pk Saran: 0.70 LVOT Mn Saran: 0.53 LVOT VTI: 0.14 LVOT Pk Grad: 2.00 LVOT Mn Grad: 1.00 LVOT Diam: 2.10 LVOT Area: 3.46 Diastolic Function MV Pk E: 1.27 E'Medial: 5.80 E/E' Med: 21.90 E' Laterial: 10.10 E/E' Lat: 12.60 Right Ventricle TAPSE (mm): 18.60 TVS' Saran: 10.50 Tricuspid Valve TR Pk Saran: 2.57 TR Pk Grad: 26.00 RA Press: 15.00 RVSP: 41.00 Great Vessels Aorta Sinus of Valsalva: 3.70 2.0-3.5 cm Ao Asc: 4.10 2.1-3.4 cm Ao Arch: 3.10 Pulmonary Valve PV Pk Saran: 0.81 Peak PV Grad: 3.00 Updated in Other Vendor System with Status of Final Benson Martínez MD electronically signed on 07/13/2025 3:33:34 PM with status of Final
[2025-07-13 07:38] LABS: MANUAL DIFF FLAG NO
[2025-07-13] MEDS: Fluticasone/Vilanterol 200/25 BLST.W.DEV 1 PUFF INHALE (07:56)
[2025-07-13 07:57] LABS: Hematocrit 41.8 % (37.0-47.0); Hemoglobin 13.8 g/dl (12.0-16.0); Imm Gran Abs Auto 0.02 X10*3/uL (0.00-0.03); Imm Gran Pct Auto 0.4 % (0.0-0.4); Lymphocytes Absolute Auto 0.9 X10*3/uL (1.2-4.9); Mean Corpuscular HGB Conc 33.0 g/dl (31.0-35.0); Mean Corpuscular Hemoglobin 29.4 pg (27.0-33.0); Mean Corpuscular Volume 88.9 fL (80.0-98.0); NRBC Abs Auto 0.000 X10*3/uL (0.0-0.012); NRBC Pct Auto 0.0 /100WBC (0.0-0.2); Platelet Count 158 X10*3/uL (160-400); Red Blood Count 4.70 X10*6/uL (4.20-5.50); White Blood Count 5.0 X10*3/uL (4.8-10.8)
[2025-07-13 08:01] LABS: Anion Gap 10 (12-20); Blood Urea Nitrogen 17 mg/dL (9-16); Calcium 8.9 mg/dL (8.4-10.2); Carbon Dioxide 30 mmol/L (22-29); Chloride 105 mmol/L (96-108); Creatinine Clr Calc Pharmacy 96.2; Estimated Glomerular Filt Rate > 60; Magnesium 2.0 mg/dL (1.6-2.6); Potassium 4.0 mmol/L (3.3-5.1); Sodium 141 mmol/L (135-145)
[2025-07-13] MEDS: 0.9 % Sodium Chloride Flush 3 ML SYRINGE IVFLUSH ×2 (08:27→19:58)
[2025-07-13] MEDS: Metoprolol Succinate ER 50 MG TAB.ER.24H PO (08:29)
[2025-07-13] MEDS: Milk of Magnesia 30 ML ORAL.SUSP PO (08:40)
--- NOTE | 2025-07-13 09:28 | MHC.CM.PN ---
IMM 07/13/25, Pt. lives with her , she does not use home health services, for DME, she uses a CPAP machine and a cane. PCP confirmed: Ang Bernstein, HCP on file and confirmed: Julieta. Family to transport home at [place]. DCP: home, self care, CM to follow for DC needs.
--- NOTE | 2025-07-13 10:56 | HO.PM.IMPN ---
Subjective Subjective Date of Service: 07/13/25 Interval History: sob improving Physical Exam Exam: Exam: General: AO X 3, no acute distress Resp: CTA bilateral, no accessory muscles used CVS: S1,S2,RRR GI: soft, non tender, non distended Neuro: motor grossly intact, alert Psych: appropriate affect, appropriate insight Vital Signs: Vital Signs: Last Vital Signs Temp 96.6 F L 07/13/25 08:00 Pulse 83 07/13/25 08:00 Resp 20 07/13/25 08:00 BP 137/93 H 07/13/25 08:00 Pulse Ox 95 07/13/25 08:00 O2 Del Method Room Air 07/13/25 08:00 O2 Flow Rate 2 07/12/25 20:59 Oxygen Flow Rate 2 07/12/25 12:06 BMI result Body Mass Index 53.1 Objective Data Active Medications Acetaminophen (Acetaminophen 325 Mg Tablet) 975 mg PO Q6H PRN PRN Reason: Pain, Mild 1-3,fever,headache Amiodarone HCl (Amiodarone Hcl 200 Mg Tablet) 200 mg PO DAILY [facility] Last Admin: 07/13/25 08:28 Dose: 200 mg Documented By: ERENDIRA Apixaban (Apixaban 5 Mg Tablet) 5 mg PO BID [facility] Last Admin: 07/13/25 08:28 Dose: 5 mg Documented By: ERENDIRA Atorvastatin Calcium (Atorvastatin Calcium 40 Mg Tablet) 40 mg PO BEDTIME [facility] Last Admin: 07/12/25 21:00 Dose: 40 mg Documented By: LM Calcium Carbonate (Calcium Carbonate 750 Mg Tab.Chew) 750 mg PO Q4H PRN PRN Reason: Heartburn Cyanocobalamin (Cyanocobalamin (Vitamin B-12) 1,000 Mcg Tablet) 5,000 mcg PO DAILY [facility] Last Admin: 07/13/25 08:28 Dose: 5,000 mcg Documented By: ERENDIRA Dexamethasone Sodium Phosphate (Dexamethasone Sod Phosphate 4 Mg/Ml Vial) 6 mg IVPUSH DAILY [facility] Last Admin: 07/13/25 08:27 Dose: 6 mg Documented By: ERENDIRA Fluticasone/Vilanterol (Fluticasone/Vilanterol 200/25 Blst.W.Dev) 1 puff INHALE RDAILY [facility] Last Admin: 07/13/25 07:56 Dose: 1 puff Documented By: MELODY Furosemide (Furosemide 40 Mg Tablet) 40 mg PO DAILY [facility]; Protocol Last Admin: 07/13/25 08:28 Dose: 40 mg Documented By: ERENDIRA Levalbuterol HCl (Levalbuterol Hcl 1.25 Mg/3 Ml Vial.Neb) 1.25 mg INHALE Q4H PRN PRN Reason: Wheezing Magnesium Hydroxide (Milk Of Magnesia 30 Ml Oral.Susp) 30 ml PO DAILY PRN PRN Reason: Constipation Last Admin: 07/13/25 08:40 Dose: 30 ml Documented By: ERENDIRA Melatonin (Melatonin 3 Mg Tablet) 6 mg PO BEDTIME PRN PRN Reason: Insomnia Metoprolol Succinate (Metoprolol Succinate Er 50 Mg Tab.Er.24h) 50 mg PO DAILY [facility]; Protocol Last Admin: 07/13/25 08:29 Dose: 50 mg Documented By: ERENDIRA Multivitamins/Vitamin C (Multivitamin Tablet) 1 tab PO DAILY [facility] Last Admin: 07/13/25 08:28 Dose: 1 tab Documented By: ERENDIRA Omeprazole (Omeprazole 20 Mg Capsule.Dr) 20 mg PO DAILY@0630 [facility] Last Admin: 07/13/25 06:14 Dose: 20 mg Documented By: LM Paroxetine HCl (Paroxetine Hcl 30 Mg Tablet) 45 mg PO DAILY [facility] Last Admin: 07/13/25 08:29 Dose: 45 mg Documented By: ERENDIRA Sodium Chloride (0.9 % Sodium Chloride Flush 3 Ml Syringe) 3 ml IVFLUSH QSHIFT [facility] Last Admin: 07/13/25 08:27 Dose: 3 ml Documented By: ERENDIRA Valsartan (Valsartan 320 Mg Tablet) 320 mg PO DAILY [facility]; Protocol Last Admin: 07/13/25 08:28 Dose: 320 mg Documented By: ERENDIRA Vitamin D (Cholecalciferol (Vitamin D3) 25 Mcg Tablet) 25 mcg PO DAILY [facility] Last Admin: 07/13/25 08:28 Dose: 25 mcg Documented By: ERENDIRA Labs 07/13/25 07:25 07/13/25 07:25 Labs: Laboratory Results - last 24 hr 07/12/25 07/12/25 07/12/25 12:38 12:46 14:23 MCV 88.3 MCH 29.9 MCHC 33.9 RDW 13.5 Plt Count 158 L MPV 11.1 Immature Gran % (Auto) 0.2 Neut % (Auto) 87.1 H Lymph % (Auto) 4.4 L [place] % (Auto) 7.5 Eos % (Auto) 0.6 Baso % (Auto) 0.2 Lymph # (Auto) 0.4 L [place] # (Auto) 0.6 Eos # (Auto) 0.1 Baso # (Auto) 0.0 Abs Immat Gran (auto) 0.02 Absolute Neuts (auto) 7.3 Absolute Nucleated RBC 0.000 Nucleated RBC % (auto) 0.0 VBG pH 7.44 H VBG pCO2 32 VBG pO2 65 VBG HCO3 22 VBG O2 Saturation 91.0 VBG Base Excess -0.9 Anion Gap 12 Estim Creat Clear Calc 101.2 Estimated GFR > 60 Random Glucose 170 H Lactic Acid 1.3 Calcium 8.7 Magnesium 2.0 Total Bilirubin 2.4 H Direct Bilirubin 0.6 H AST 22 ALT 15 Alkaline Phosphatase 86 C-Reactive Protein 0.40 B-Natriuretic Peptide 440 H Total Protein 6.3 L Albumin 3.9 Lipase 16 Procalcitonin 0.04 Urine Color Yellow Urine Appearance Clear Urine pH 6.0 Ur Specific [place] 1.015 Urine Protein Negative Urine Glucose (UA) Negative Urine Ketones Negative Urine Blood Negative Urine Nitrite Positive H Ur Leukocyte Esterase Negative Urine RBC 0-2 Urine WBC 0-5 Ur Squamous Epith Cells 3-5 Urine Bacteria Trace Hyaline Casts 0-2 COVID-19 ([facility]) Positive A COVID-19 Clin Com See Note 07/13/25 07:25 MCV 88.9 MCH 29.4 MCHC 33.0 RDW 13.2 Plt Count 158 L MPV 11.2 Immature Gran % (Auto) 0.4 Neut % (Auto) 65.0 Lymph % (Auto) 18.8 L [place] % (Auto) 15.6 H Eos % (Auto) 0.0 Baso % (Auto) 0.2 Lymph # (Auto) 0.9 L [place] # (Auto) 0.8 Eos # (Auto) 0.0 Baso # (Auto) 0.0 Abs Immat Gran (auto) 0.02 Absolute Neuts (auto) 3.2 Absolute Nucleated RBC 0.000 Nucleated RBC % (auto) 0.0 VBG pH VBG pCO2 VBG pO2 VBG HCO3 VBG O2 Saturation VBG Base Excess Anion Gap 10 L Estim Creat Clear Calc 96.2 Estimated GFR > 60 Random Glucose 124 H Lactic Acid Calcium 8.9 Magnesium 2.0 Total Bilirubin Direct Bilirubin AST ALT Alkaline Phosphatase C-Reactive Protein B-Natriuretic Peptide Total Protein Albumin Lipase Procalcitonin Urine Color Urine Appearance Urine pH Ur Specific [place] Urine Protein Urine Glucose (UA) Urine Ketones Urine Blood Urine Nitrite Ur Leukocyte Esterase Urine RBC Urine WBC Ur Squamous Epith Cells Urine Bacteria Hyaline Casts COVID-19 ([facility]) COVID-19 Clin Com Assessment and Plan (1) Chronic diastolic heart failure: Status: Acute Plan 710F PMH paroxysmal AFib on Eliquis, chronic systolic CHF, JIMBO on CPAP, hypertension, morbid obesity, GERD, unspecified asthma presented with shortness of breaths Shortness breath COVID complicated by unspecified asthma with acute decompensation AliciaadKrystal haq Acute on chronic systolic CHF IV Lasix Question of pericardial effusion on chest x-ray, check echo Hypertension Valsartan, metoprolol Hyperlipidemia Statin JIMBO Nocturnal CPAP Morbid obesity Weight loss recommended Mood disorder Paroxetine DVT prophylaxis on Eliquis Full Code reason for continued hospitalization: IV diuresis Quality Stroke Does the patient have a stroke diagnosis?: No VTE Prior VTE?: No VTE Risk Level:: Medical - moderate - high VTE Device Contraindication: Treatment Not Indicated VTE Drug Contraindication: N/A - Med Ordered
[2025-07-13] MEDS: Furosemide 40 MG/4 ML VIAL IVPUSH (11:52)
[2025-07-14 03:22] VITALS: BP 137/89; PULSE 99; RESP 20; TEMP 36.1; O2SAT 97
[2025-07-14 04:14] VITALS: PULSE 92; RESP 20; O2SAT 93
[2025-07-14 07:16] LABS: Hematocrit 44.0 % (37.0-47.0); Hemoglobin 14.6 g/dl (12.0-16.0); Mean Corpuscular HGB Conc 33.2 g/dl (31.0-35.0); Mean Corpuscular Hemoglobin 29.1 pg (27.0-33.0); Mean Corpuscular Volume 87.8 fL (80.0-98.0); NRBC Abs Auto 0.000 X10*3/uL (0.0-0.012); NRBC Pct Auto 0.0 /100WBC (0.0-0.2); Platelet Count 166 X10*3/uL (160-400); Red Blood Count 5.01 X10*6/uL (4.20-5.50); White Blood Count 7.1 X10*3/uL (4.8-10.8)
[2025-07-14 07:36] LABS: Anion Gap 14 (12-20); Blood Urea Nitrogen 21 mg/dL (9-16); Calcium 8.9 mg/dL (8.4-10.2); Carbon Dioxide 28 mmol/L (22-29); Chloride 101 mmol/L (96-108); Creatinine Clr Calc Pharmacy 93.6; Estimated Glomerular Filt Rate > 60; Magnesium 2.1 mg/dL (1.6-2.6); Potassium 3.7 mmol/L (3.3-5.1); Sodium 139 mmol/L (135-145)
[2025-07-14] MEDS: Fluticasone/Vilanterol 200/25 BLST.W.DEV 1 PUFF INHALE (07:44)
[2025-07-14 07:45] VITALS: PULSE 89; RESP 15; O2SAT 92
[2025-07-14 07:48] VITALS: PULSE 72; RESP 18; O2SAT 92
[2025-07-14 07:58] VITALS: BP 146/98; PULSE 91; RESP 20; TEMP 36.6; O2SAT 94
[2025-07-14] MEDS: Metoprolol Succinate ER 50 MG TAB.ER.24H PO (08:52)
--- NOTE | 2025-07-14 08:54 | P.PNIM_ITS ---
Subjective Subjective Date of Service: 07/14/25 Interval History: sob improving Physical Exam 2 Exam: Exam: General: AO X 3, no acute distress Resp: CTA bilateral, no accessory muscles used CVS: S1,S2,RRR GI: soft, non tender, non distended Neuro: motor grossly intact, alert Psych: appropriate affect, appropriate insight Vital Signs: Vital Signs: Last Vital Signs Temp 97.8 F 07/14/25 07:58 Pulse 91 07/14/25 07:58 Resp 20 07/14/25 07:58 BP 146/98 H 07/14/25 07:58 Pulse Ox 94 07/14/25 07:58 O2 Del Method CPAP 07/14/25 07:58 O2 Flow Rate 2 07/12/25 20:59 Oxygen Flow Rate 2 07/12/25 12:06 BMI result Body Mass Index 53.1 Objective Data Active Medications Acetaminophen (Acetaminophen 325 Mg Tablet) 975 mg PO Q6H PRN PRN Reason: Pain, Mild 1-3,fever,headache Amiodarone HCl (Amiodarone Hcl 200 Mg Tablet) 200 mg PO DAILY [facility] Last Admin: 07/13/25 08:28 Dose: 200 mg Documented By: ERENDIRA Apixaban (Apixaban 5 Mg Tablet) 5 mg PO BID [facility] Last Admin: 07/13/25 19:54 Dose: 5 mg Documented By: LM Atorvastatin Calcium (Atorvastatin Calcium 40 Mg Tablet) 40 mg PO BEDTIME [facility] Last Admin: 07/13/25 19:54 Dose: 40 mg Documented By: LM Calcium Carbonate (Calcium Carbonate 750 Mg Tab.Chew) 750 mg PO Q4H PRN PRN Reason: Heartburn Cyanocobalamin (Cyanocobalamin (Vitamin B-12) 1,000 Mcg Tablet) 5,000 mcg PO DAILY [facility] Last Admin: 07/13/25 08:28 Dose: 5,000 mcg Documented By: ERENDIRA Dexamethasone Sodium Phosphate (Dexamethasone Sod Phosphate 4 Mg/Ml Vial) 6 mg IVPUSH DAILY [facility] Last Admin: 07/14/25 08:50 Dose: 6 mg Documented By: ERENDIRA Fluticasone/Vilanterol (Fluticasone/Vilanterol 200/25 Blst.W.Dev) 1 puff INHALE RDAILY [facility] Last Admin: 07/14/25 07:44 Dose: 1 puff Documented By: CLAY Furosemide (Furosemide 40 Mg Tablet) 40 mg PO DAILY [facility]; Protocol Last Admin: 07/13/25 08:28 Dose: 40 mg Documented By: ERENDIRA Levalbuterol HCl (Levalbuterol Hcl 1.25 Mg/3 Ml Vial.Neb) 1.25 mg INHALE Q4H PRN PRN Reason: Wheezing Magnesium Hydroxide (Milk Of Magnesia 30 Ml Oral.Susp) 30 ml PO DAILY PRN PRN Reason: Constipation Last Admin: 07/13/25 08:40 Dose: 30 ml Documented By: ERENDIRA Melatonin (Melatonin 3 Mg Tablet) 6 mg PO BEDTIME PRN PRN Reason: Insomnia Metoprolol Succinate (Metoprolol Succinate Er 50 Mg Tab.Er.24h) 50 mg PO DAILY [facility]; Protocol Last Admin: 07/13/25 08:29 Dose: 50 mg Documented By: ERENDIRA Multivitamins/Vitamin C (Multivitamin Tablet) 1 tab PO DAILY [facility] Last Admin: 07/13/25 08:28 Dose: 1 tab Documented By: ERENDIRA Omeprazole (Omeprazole 20 Mg Capsule.Dr) 20 mg PO DAILY@0630 [facility] Last Admin: 07/14/25 06:22 Dose: 20 mg Documented By: ANTALPHONSO Paroxetine HCl (Paroxetine Hcl 30 Mg Tablet) 45 mg PO DAILY [facility] Last Admin: 07/13/25 08:29 Dose: 45 mg Documented By: ERENDIRA Sodium Chloride (0.9 % Sodium Chloride Flush 3 Ml Syringe) 3 ml IVFLUSH QSHIFT [facility] Last Admin: 07/13/25 19:58 Dose: 3 ml Documented By: LM Valsartan (Valsartan 320 Mg Tablet) 320 mg PO DAILY [facility]; Protocol Last Admin: 07/13/25 08:28 Dose: 320 mg Documented By: ERENDIRA Vitamin D (Cholecalciferol (Vitamin D3) 25 Mcg Tablet) 25 mcg PO DAILY [facility] Last Admin: 07/13/25 08:28 Dose: 25 mcg Documented By: ERENDIRA Labs 07/14/25 06:45 07/14/25 06:45 Labs: Laboratory Results - last 24 hr 07/14/25 06:45 MCV 87.8 MCH 29.1 MCHC 33.2 RDW 13.2 Plt Count 166 MPV 11.2 Absolute Nucleated RBC 0.000 Nucleated RBC % (auto) 0.0 Anion Gap 14 Estim Creat Clear Calc 93.6 Estimated GFR > 60 Random Glucose 110 Calcium 8.9 Magnesium 2.1 Microbiology Microbiology Results: Microbiology 07/12/25 12:38 Blood Culture - Preliminary Blood - Venous No growth after 24 hours. 07/12/25 12:38 Blood Culture - Preliminary Blood - Venous No growth after 24 hours. 07/12/25 Unknown Urine Culture - Final Urine clean catch - Clean Catch Midstream Assessment and Plan (1) Chronic diastolic heart failure: Status: Acute Plan 710F PMH paroxysmal AFib on Eliquis, chronic systolic CHF, JIMBO on CPAP, hypertension, morbid obesity, GERD, unspecified asthma presented with shortness of breaths Shortness breath COVID complicated by unspecified asthma with acute decompensation Krystal Ramírez Acute on chronic systolic CHF improved with iv lasix, will start maintenance lasix on discharge echo with EF 51%, no pericardial effusion Hypertension Valsartan, metoprolol Hyperlipidemia Statin JIMBO Nocturnal CPAP Morbid obesity Weight loss recommended Mood disorder Paroxetine DVT prophylaxis on Eliquis Full Code reason for continued hospitalization: dispo planning Quality Stroke Does the patient have a stroke diagnosis?: No VTE Prior VTE?: No VTE Risk Level:: Medical - moderate - high VTE Device Contraindication: Treatment Not Indicated VTE Drug Contraindication: N/A - Med Ordered
[2025-07-14] MEDS: Milk of Magnesia 30 ML ORAL.SUSP PO (08:55)
[2025-07-14] MEDS: 0.9 % Sodium Chloride Flush 3 ML SYRINGE IVFLUSH (08:55)
--- NOTE | 2025-07-14 08:57 | PM.DS ---
DS: Providers Provider Date of Service: 07/14/25 Date of admission: 07/12/25 14:02 Date of discharge: 07/14/25 Primary care physician: Ang Bernstein MD DS: Diagnosis Discharge Diagnosis (1) Chronic diastolic heart failure: Status: Acute DS: Summary Hospital Course Hospital Course: from initial hpi: 69 years old woman with past medical history significant for atrial fibrillation on Eliquis, HFrEF (45-50%), JIMBO on CPAP, essential hypertension, bronchial asthma, morbid obesity and GERD presents to the ED complaining of palpitations, nausea, vomiting, GI upset, shortness on breath and headache. These symptoms started last night. She has not been able to sleep and was unable to use her CPAP due to feeling unwell. She denied fever, chills or diarrhea. She did not report any acute genitourinary symptoms. Denied history of tobacco smoking, alcohol abuse or illicit drug use. She did not take her amiodarone Eliquis this morning. In the ED, she was found to have tachycardia consistent with rapid AFib. Other vital signs are stable. She was placed on supplemental oxygen via nasal cannula. Blood workup showed no leukocytosis or lactic acidosis. Hemoglobin is 14.8 and platelets are 158. PH is 7.44 pCO2 32. There are no electrolyte imbalances. BUN 16 and creatinine 0.66. Glucose is 170. BNP is 140. Total bilirubin is 2.4. Other LFTs are normal as well as lipase. Procalcitonin 0.04. Head CT scan showed no acute intracranial hemorrhage or abnormalities. CXR showed cardiomegaly versus pericardial effusion and mild interstitial lung edema. ECG showed atrial fibrillation with rapid ventricular response, heart rate 118 beats per minute and nonspecific ST and T-wave abnormalities. ED tx: Acetaminophen 1 g IV, ceftriaxone 1 g IV, metoprolol XL 50 mg and furosemide 20 mg IV. hospital course: Patient was admitted for shortness breath due to COVID complicated by unspecified asthma with acute decompensation as well as acute on chronic systolic CHF. Was treated with Decadron, DuoNebs, IV Lasix. Echo revealed EF of 51% with no pericardial effusion. Symptoms improved and patient will continue 5 more days of prednisone on discharge and 40 mg daily of Lasix maintenance. For hypertension was continued on valsartan and metoprolol. For hyperlipidemia continued on statin. For JIMBO continued on nocturnal CPAP. For morbid obesity weight loss recommended. For mood disorder continued on Paxil. For paroxysmal AFib continued on amiodarone, metoprolol, Eliquis. Time Attestation Discharge Coordination Time (in mins): 35 Quality: Safe Use of Opioids Does Pt have an Active Cancer Diagnosis on the Problem List?: No Quality: Stroke Does the patient have a stroke diagnosis?: No Physical Exam Exam: Exam: General: AO X 3, no acute distress Resp: CTA bilateral, no accessory muscles used CVS: S1,S2,RRR GI: soft, non tender, non distended Neuro: motor grossly intact, alert Psych: appropriate affect, appropriate insight Vital Signs: Vital Signs: Last Vital Signs Temp 97.8 F 07/14/25 07:58 Pulse 91 07/14/25 07:58 Resp 20 07/14/25 07:58 BP 146/98 H 07/14/25 07:58 Pulse Ox 94 07/14/25 07:58 O2 Del Method CPAP 07/14/25 07:58 O2 Flow Rate 2 07/12/25 20:59 Oxygen Flow Rate 2 07/12/25 12:06 BMI result Body Mass Index 53.1 DS: Data Data Completed and Pending Completed studies during hospitalization [Text1]: Procedures Assistance with Respiratory Ventilation, Less than 24 Consecutive Hours, Continuous Positive Airway Pressure (07/23/22) Jehov[employer] Witness of Cardiac Rhythm, Single (08/20/23) Labs on day of discharge: Laboratory Results - last 24 hr 07/14/25 06:45 WBC 7.1 RBC 5.01 Hgb 14.6 Hct 44.0 MCV 87.8 MCH 29.1 MCHC 33.2 RDW 13.2 Plt Count 166 MPV 11.2 Absolute Nucleated RBC 0.000 Nucleated RBC % (auto) 0.0 Sodium 139 Potassium 3.7 Chloride 101 Carbon Dioxide 28 Anion Gap 14 BUN 21 H Creatinine 0.73 Estim Creat Clear Calc 93.6 Estimated GFR > 60 Random Glucose 110 Calcium 8.9 Magnesium 2.1 Preliminary micro results at discharge 07/12/25 12:38 Blood Culture - Preliminary Blood - Venous No growth after 24 hours. 07/12/25 12:38 Blood Culture - Preliminary Blood - Venous No growth after 24 hours. Discharge Plan Discharge Anticipated Discharge Date/Time: 07/14/25 08:55 Patient Disposition: Home, Self-Care Discharge Diagnosis: COVID, chf Referrals: Ang Bernstein MD [Primary Care Provider, Internal Medicine] - 1 Week Discharge Medications: New prednisone 20 mg tablet 40 mg PO DAILY Qty: 10 0RF Continued cholecalciferol (vitamin D3) 25 mcg (1,000 unit) capsule 25 mcg PO DAILY Qty: 30 0RF multivitamin Tablet 1 tab PO DAILY Qty: 30 0RF omega-3 fatty acids 1,250 mg capsule 1,250 mg PO DAILY Qty: 30 0RF furosemide 40 mg tablet 40 mg PO DAILY Qty: 90 3RF fluticasone furoate-vilanterol [Breo Ellipta] 200-25 mcg/dose blister with device 1 ea inhalation DAILY Qty: 60 3RF Eliquis 5 mg tablet 5 mg PO BID Qty: 180 3RF metoprolol succinate 50 mg tablet extended release 24 hr 50 mg PO DAILY Qty: 90 3RF Ozempic 1 mg/dose (4 mg/3 mL) pen injector 4 mg SUBCUT FR amiodarone 200 mg tablet 200 mg PO DAILY Rx Instructions: 2 tablets twice a day x 7 days then 1 tablet daily orally; paroxetine HCl 30 mg tablet 45 mg PO DAILY mecobalamin (vitamin B12) 5,000 mcg tablet,disintegrating 5,000 mcg PO DAILY rosuvastatin 10 mg tablet 10 mg PO BEDTIME omeprazole 20 mg capsule,delayed release(DR/EC) 20 mg PO DAILY@0630 valsartan 320 mg tablet 320 mg PO DAILY Qty: 90 3RF albuterol sulfate 90 mcg/actuation HFA aerosol inhaler 2 puff inhalation Q4-6H PRN (Reason: shortness of breath or wheezing) 30 Days Qty: 8.5 3RF Diet: Advance to usual diet Activity on Discharge: As tolerated Stand Alone Forms: Patient Portal Discharge page Print Language: Algerian Care Plan Goals: Recovery Health Concerns: COVID, CHF Plan of Treatment: 5 more days of prednisone, continue Lasix maintenance and monitor weight and edema and shortness of breath, follow up with Cardiology Assessment: See above
[2025-07-14 11:55] VITALS: BP 123/73; PULSE 96; RESP 20; TEMP 35.9; O2SAT 97
--- NOTE | 2025-07-14 13:19 | MHC.CM.PN ---
PT CLEARED TO DC HOME TODAY WITH NO SERVICES VIA FAMILY TRANSPORT
== END 2025-07-14 13:08 | disposition home or self-care (01) | DRG 177 ==
LOC: HO.ED 14:03 → HO.EDOVER 14:03 → HO.IMC 19:26
PROVIDERS: Admitting Provider Internal Medicine; Emergency Provider Emergency Medicine; PCP Internal Medicine; Visit Provider Internal Medicine
DX: U07.1 COVID-19 (principal); I50.33 Acute on chronic diastolic (congestive) heart failure; Z68.43 Body mass index [BMI] 50.0-59.9, adult; J45.901 Unspecified asthma with (acute) exacerbation; G47.33 Obstructive sleep apnea (adult) (pediatric); I11.0 Hypertensive heart disease with heart failure; E78.5 Hyperlipidemia, unspecified; I48.0 Paroxysmal atrial fibrillation; F39 Unspecified mood [affective] disorder; E66.01 Morbid (severe) obesity due to excess calories; Z71.3 Dietary counseling and surveillance; Z87.891 Personal history of nicotine dependence; Z79.01 Long term (current) use of anticoagulants; Z79.899 Other long term (current) drug therapy
CPT/HCPCS: 36415; 70450; 71045; 80048; 80076; 81001; 82803; 83605; 83690; 83735; 83880; 84145; 84484; 85025; 85027; 86140; 87040; 87086; 87635; 93005; 93306; 94640; 94660; 99285; J0131; J0696; J1100; J1938; Q9957

== ENCOUNTER → 2025-07-12 12:14 | Outpatient (BNV) | payer MEDICARE, OTHER, SELFPAY | PROVIDERS: Admitting Provider Internal Medicine; Emergency Provider Emergency Medicine; PCP Internal Medicine; Visit Provider Internal Medicine | DX: I48.91 Unspecified atrial fibrillation (principal) | CPT/HCPCS: 93010 ==

== ENCOUNTER → 2025-07-12 12:17 | Outpatient (BNV) | payer MEDICARE, OTHER, SELFPAY | PROVIDERS: Emergency Provider Emergency Medicine; PCP Internal Medicine; Visit Provider Radiology Diagnostic Radiology | DX: R51.9 Headache, unspecified (principal); T45.515A Adverse effect of anticoagulants, initial encounter; R05.9 Cough, unspecified | CPT/HCPCS: 70450; 71045 ==

== ENCOUNTER 2025-07-12 14:02 | Outpatient (BNV) | payer MEDICARE, OTHER, SELFPAY | END 2025-07-13 07:00 | PROVIDERS: Admitting Provider Internal Medicine; Emergency Provider Emergency Medicine; PCP Internal Medicine; Visit Provider Internal Medicine | DX: I42.2 Other hypertrophic cardiomyopathy (principal); I51.7 Cardiomegaly; I34.81 Nonrheumatic mitral (valve) annulus calcification | CPT/HCPCS: 93306 ==

== ENCOUNTER → 2025-07-12 14:02 | Outpatient (BNV) | payer MEDICARE, OTHER, SELFPAY | PROVIDERS: Admitting Provider Internal Medicine; Emergency Provider Emergency Medicine; PCP Internal Medicine; Visit Provider Internal Medicine | DX: I48.91 Unspecified atrial fibrillation (principal); U07.1 COVID-19 | CPT/HCPCS: 99223 ==

== ENCOUNTER 2025-08-14 12:37 | Outpatient (AMB) | payer MEDICARE, OTHER, SELFPAY ==
[2025-08-14 12:44] VITALS: BP 140/82; PULSE 123; BMI 50.5
--- NOTE | 2025-08-14 12:44 | A.OFFVIS_ITS ---
Vital Signs 08/14/25 12:44 Height 5 ft 3 in Weight 285 lb 4.45 oz BMI 50.5 BP 140/82 H Blood Pressure Location Lt brachial Position Sitting Pulse 123 H Pulse Source Monitor Intake Visit Reasons: 3 mth f/up-echo Intake Note: 3 mth -echo Helper Marble Finisher Required: No Accompanied by: Self / Same As Patient Allergies adhesive tape (ADHESIVE TAPE) Allergy (Intermediate, Verified 07/12/25 12:09) BLISTERS Medication List - Last Reconciled 08/14/25 by Jaime Clifford MD albuterol sulfate 90 mcg/actuation 2 puffs inhalation Q4-6H PRN 30 days amiodarone 200 mg PO DAILY apixaban (Eliquis) 5 mg PO BID cholecalciferol (vitamin D3) 25 mcg PO DAILY fluticasone furoate-vilanterol 200-25 mcg/dose (Breo Ellipta) 1 ea inhalation DAILY furosemide 40 mg PO DAILY mecobalamin (vitamin B12) 5,000 mcg PO DAILY metoprolol succinate ER 50 mg PO DAILY multivitamin 1 tab PO DAILY omega-3 fatty acids 1,250 mg PO DAILY omeprazole 20 mg PO DAILY@0630 paroxetine HCl 45 mg PO DAILY prednisone 40 mg (2 x 20 mg) PO DAILY rosuvastatin 10 mg PO BEDTIME semaglutide (Ozempic) 4 mg subcut FR valsartan 320 mg PO DAILY HPI Comments Details: [age] year female who is here for follow-up. She has persistent atrial fibrillation. She was previously on amiodarone which was changed to sotalol and eventually she went back into AFib and was treated with rate control strategy. She has been following with [facility] electrophysiology Dr. Melo Echocardiography done in May 2025 showed EF 45-50%. Severely dilated left atrium. Moderate RV dilation with low normal RV function. After discussion we decided to cardiovert her. This was unsuccessful and she was started on amiodarone. Subsequent to that she got admitted to the hospital feeling weak and tired and was positive for COVID-19. At that time she had AFib with RVR and congestive heart failure and apparently was diuresed and sent home. She is now returning for follow-up. She continues to take amiodarone at this stage. She gets out of breath with activities. [facility] Medical History History of cardioversion GERD (gastroesophageal reflux disease) Bronchitis Asthma exacerbation PAF (paroxysmal atrial fibrillation) MDD (major depressive disorder) HTN (hypertension) Post covid-19 condition, unspecified Morbid obesity JIMBO on CPAP Bronchial asthma Surgical History History of cardioversion Anal fistula Hx of laparoscopic gastric banding History of hysterectomy for cancer H/O umbilical hernia repair History of cholecystectomy H/O colonoscopy Social History Household Members: Spouse Housing: House Are you a primary hiv/aids care nurse to a significant other at home: No Do you presently have visiting nurse or other home services: No Alcohol intake: never Patient Tobacco Use Status: Former Tobacco user Tobacco use type: Cigarette Years Smoked: 25 Second Hand Smoke Exposure: No Advance Directives Date on File: 12/23/22 service: No Current occupational status: unemployed Review of Systems Const Denies chills, Denies fatigue, Denies fever(s), Denies frequent falls, Denies weakness, Denies weight gain and Denies weight loss ENT Denies dizziness Card Denies chest pain, Denies leg edema, Denies lightheadedness, Denies palpitations, Denies dyspnea and Denies dyspnea on exertion Resp Denies cough, Denies dyspnea and Denies dyspnea on exertion GI Denies hematochezia Musc Denies abnormal gait, Denies muscle weakness, Denies numbness, Denies radiating pain into limb and Denies tingling Neuro Denies abnormal gait, Denies dizziness, Denies frequent falls, Denies numbness, Denies tingling and Denies weakness Endo Denies fatigue and Denies palpitations Physical Exam Vital Signs: Last Vital Signs Pulse 123 H 08/14/25 12:44 BP 140/82 H 08/14/25 12:44 BMI result Body Mass Index 50.5 GENERAL APPEARANCE: in no acute distress, pleasant. NECK: no carotid bruit, no jugular venous distention. SKIN: no suspicious lesions, warm and dry. HEART: no murmurs, irregular rate and rhythm. Tachycardic. LUNGS: clear to auscultation bilaterally. ABDOMEN: soft, nontender. EXTREMITIES: no edema. PERIPHERAL PULSES: equal. NEUROLOGIC: No gross deficits, AAO X 3 Office Procedures EKG Details: Afib with RVR 123/min, anteroseptal infarct, QTc 455 msec. [id number], Complete Assessment & Plan Assessment & Plan (1) Chronic diastolic heart failure: Code(s): I50.32 - Chronic diastolic (congestive) heart failure Category: Medical (2) Persistent atrial fibrillation: Code(s): I48.19 - Other persistent atrial fibrillation Category: Medical Plan Pleasant 69 year female with persistent atrial fibrillation and chronic diastolic heart failure. Admission in June with COVID-19, congestive heart failure and AFib with RVR. She was diuresed and discharged home. She is saying she continues to get dyspnea with activities. Our plan was to cardiovert her after loading with amiodarone but she got admitted with COVID-19. She has recovered from COVID at this stage. We will set her up for cardioversion. Continue same medications for now. Eventually will need ablation and we will take her off the amiodarone at that stage. Thank you for allowing me to participate in the care of your patient. Please feel free to contact me if you have any questions. Coding Level of Care Code Est Pt Level 4 (71978) Diagnoses Chronic diastolic heart failure I50.32 Persistent atrial fibrillation I48.19 CPT Codes EKG - CPT: 12762-[id number], Complete ([id number])
--- OUTSIDE RECORDS SUMMARY | 2025-08-14 13:46 | XMS_ITS | Encounter Summary ---
Author Organization [facility] Address [address] [facility] [address] [place] [address] Phone Care Team Providers Care Insurance Collector Name Role Phone Ang Bernstein MD Unavailable Renu Araujo SYSTEMS OPERATOR Unavailable Josi Quinonez SYSTEMS OPERATOR Unavailable [phone] Becka Brar SYSTEMS OPERATOR Unavailable [phone] Bryce Steve MD Unavailable Ang Bernstein MD Primary Care Provider Ang Bernstein MD Unavailable Ela Alarcon RN Unavailable [phone] Encounter Details Date Type Department Care Team (Late st Contact Info) Description 06/23/2019 Ancillary Orders [facility] & Sports Medicine [address] [place] [address] Jelena Sow MD [address] [place] [address] Orthopedics & Sports Medicine, [place] [address] Social History Tobacco Use Types Packs/Day Years [...] Care Team (Late st Contact Info) Description 11/01/2025 3:30 PM EST Office Visit [facility] Internal Medicine [address] [place] [address] Ang Bernstein MD [address] [place] [address] [email or web address] documented as of this encounter Visit Diagnoses Not on filedocumented in this encounter Additional Health Concerns Infection Onset Date Last Indicated Resolved Time CoV-Presumed 06/13/2022 06/13/2022 07/04/2022 1:21 AM EDT Assessment Noted Time PHQ-2 Depression Total Score: 0 12/10/19 8:40 AM EST documented as of this encounter Care Teams Insurance Collector Relationship Specialty Start Date End Date Ang Bernstein MD [address] [place] [address] PCP - General 10/15/17 Ang Bernstein MD [address] [place] [address] Historical LMR Provider 09/05/17 09/13/19 Renu Araujo NP [address] [place] [address] [email or web address] Historical LMR Provider 09/05/1709/13 Josi Quinonez NP 21 [facility] [address] [place] [address] Historical LMR Provider 09/05/1709/13 Becka Brar NP 26 [facility] 6 [place] [address] Historical LMR Provider 09/05/17 09/13/19 [place] [address] Historical LMR Provider 09/05/17 Ang Bernstein MD [address] [place] [address] Insurance Assigned Provider 02/20/24 Ela Alarcon, RN 10 [place] [address] [email or web address] DeveloperRubber Mold Maker 06/15/23 07/05/23 documented as of this encounter Additional Source Comments The information contained in this document represents components of the legal health record. It is not the complete legal health record.[facility]
--- OUTSIDE RECORDS SUMMARY | 2025-08-14 13:48 | XMS_ITS | Encounter Summary ---
Author Organization [facility] Address [address] [place] [address] Phone Care Team Providers Care Wellness Trainer Name Role Phone Ang Bernstein MD Primary Care Provider [phone] Ang Bernstein MD Unavailable [phone] Encounter Details Date Type Department Care Team (Late st Contact Info) Description 12/20/2024 Procedure Pass [facility], Ct Scan - [address] [address] Social History Tobacco Use Types Packs/Day Years [...] Description 11/01/2025 3:30 PM EST Office Visit [facility] Internal Medicine [address] [place], [place] [phone] Ang Bernstein MD [address] [place] [address] documented as of this encounter Visit Diagnoses Not on filedocumented in this encounter Additional Health Concerns Assessment Noted Time PHQ-9 Depression Total Score: 6 04/22/20 22 3:50 PM EDT PHQ-2 Depression Total Score: 2 07/21/20 24 6:18 PM EDT documented as of this encounter Care Teams Wellness Trainer Relationship Specialty Start Date End Date Ang Bernstein MD [address] [place] [address] PCP - General 10/15/17 Ang Bernstein MD [address] [place] [address] Insurance Assigned Provider 02/20/24 documented as of this encounter Additional Source Comments The information contained in this document represents components of the legal health record. It is not the complete legal health record.[facility]
--- OUTSIDE RECORDS SUMMARY | 2025-08-14 13:48 | XMS_ITS | Encounter Summary ---
Author Organization [facility] Address [address] [facility] [address] [place] [address] Phone Care Team Providers Care Wound Specialist Name Role Phone Ang Bernstein MD Primary Care Provider [phone] Ang Bernstein MD Unavailable [phone] Encounter Details Date Type Department Care Team (Late st Contact Info) Description 01/04/2025 Procedure Pass [facility], [address] [address] Social History Tobacco Use Types Packs/Day Years [...] Description 11/01/2025 3:30 PM EST Office Visit [facility] Internal Medicine [address] [place], [place] [phone] Ang Bernstein MD 40 [place] [address] documented as of this encounter Visit Diagnoses Not on filedocumented in this encounter Additional Health Concerns Assessment Noted Time PHQ-9 Depression Total Score: 6 04/22/20 22 3:50 PM EDT PHQ-2 Depression Total Score: 2 07/21/20 24 6:18 PM EDT documented as of this encounter Care Teams Wound Specialist Relationship Specialty Start Date End Date Ang Bernstein MD 40 [place] [address] PCP - General 10/15/17 Ang Bernstein MD [address] [place] [address] Insurance Assigned Provider 02/20/24 documented as of this encounter Additional Source Comments The information contained in this document represents components of the legal health record. It is not the complete legal health record.[facility]
--- OUTSIDE RECORDS SUMMARY | 2025-08-14 13:48 | XMS_ITS | Encounter Summary ---
Author Organization [facility] Address [address] [facility] [address] [place] [address] Phone Care Team Providers Care Egg Breaking Machine Operator Name Role Phone Ang Bernstein MD Primary Care Provider [phone] Ang Bernstein MD Unavailable [phone] Encounter Details Date Type Department Care Team (Late st Contact Info) Description 01/04/2025 Procedure Pass [facility], [address] [address] Social History Tobacco Use Types Packs/Day Years [...] Description 11/01/2025 3:30 PM EST Office Visit [facility] Internal Medicine 40 [place], [place] [phone] Ang Bernstein MD 40 [place] [address] documented as of this encounter Visit Diagnoses Not on filedocumented in this encounter Additional Health Concerns Assessment Noted Time PHQ-9 Depression Total Score: 6 04/22/20 22 3:50 PM EDT PHQ-2 Depression Total Score: 2 07/21/20 24 6:18 PM EDT documented as of this encounter Care Teams Egg Breaking Machine Operator Relationship Specialty Start Date End Date Ang Bernstein MD 40 [place] [address] PCP - General 10/15/17 Ang Bernstein MD [address] [place] [address] Insurance Assigned Provider 02/20/24 documented as of this encounter Additional Source Comments The information contained in this document represents components of the legal health record. It is not the complete legal health record.[facility]
--- OUTSIDE RECORDS SUMMARY | 2025-08-14 13:48 | XMS_ITS | Clinical Summary ---
Author Organization [facility] Address [address] [facility] [address] [place] [address] Phone Care Team Providers Care Stripping Machine Operator Name Role Phone Ang Bernstein MD Primary Care Provider [phone] Ang Bernstein MD Unavailable [phone] Allergies Active Allergy Reactions Criticality Noted Date Comments Adhesive Tape-Silicones Rash High 12/07/2017 Other reaction(s): BLISTERS Lisinopril Cough 05/06/2021 Medications multivitamin per tablet Take 1 tablet by mouth daily. Active omega-3 fatty acids-fish oil 300-1,000 mg Cap Take 1 capsule by mouth daily. Active apixaban (ELIQUIS) 5 mg tablet Take 5 mg by mouth 2 (two) times a day. Active furosemide (LASIX) 40 MG tablet Take 40 mg by mouth daily. Active albuterol 90 mcg/actuation inhaler Inhale 2 puffs into the lungs as directed. Every 4-6 hours as needed Active cyanocobalamin, vitamin B-12, 1000 MCG tablet Take 1,000 mcg by mouth every morning. Active rosuvastatin (CRESTOR) 10 MG tabletIndications:Pure hypercholesterolemia take 1 tablet by mouth every day 90 tablet 3 2023 Active BREO ELLIPTA 200-25 mcg/dose inhaler Inhale 1 puff into the lungs every morning. 2023 Active OZEMPIC 1 mg/dose (4 mg/3 mL) subcutaneous injection penIndications:Type 2 diabetes mellitus without complication, without long-term current use of insulin,Class 3 severe obesity due to excess calories with serious comorbidity and body mass index (BMI) of 50.0 to 59.9 in adult INJECT 1 MG UNDER THE SKIN EVERY 7 DAYS 3 mL 11 2023 Active cholecalciferol (VITAMIN D3) 25 MCG (1,000 unit) tablet Take 2,000 Units by mouth every morning. Active nystatin (NYSTOP) powderIndications:Inte rtrigo APPLY TO AFFECTED AREA TWICE A DAY 60 g 3 2024 Active omeprazole (PRILOSEC) 20 MG capsuleIndications:Gas troesophageal reflux disease without esophagitis TAKE 1 CAPSULE BY MOUTH EVERY DAY 90 capsule 3 2024 Active PARoxetine (PAXIL) 30 MG tabletIndications:Anxi ety state,Depression, unspecified depression type Take 1.5 tablets (45 mg total) by mouth every morning. 135 tablet 3 2024 Active valsartan (DIOVAN) 320 MG tabletIndications:Esse ntial hypertension TAKE 1 TABLET BY MOUTH EVERY DAY 90 tablet 3 2024 Active metoprolol succinate (TOPROL-XL) 50 MG 24 hr tablet Take 50 mg by mouth every morning. 2024 Active clobetasol (TEMOVATE) 0.05 % cream Apply 1 Application topically as needed. On arms and hands 2024 Active amiodarone (PACERONE) 200 MG tablet Take 200 mg by mouth every morning. 2024 Active digoxin (LANOXIN) 250 mcg (0.25 mg) tablet Take 250 mcg by mouth daily. 08/02 Discontinued( No longer taking) metoprolol succinate (TOPROL-XL) 100 MG 24 hr tablet Take 100 mg by mouth daily. 08/02 Discontinued( No longer taking) senna (SENOKOT) 8.6 mg tablet Take 8.6 mg by mouth as needed. 08/02 Discontinued valsartan (DIOVAN) 320 MG tablet Take 160 mg by mouth every morning. 2023 Discontinued( Dose adjustment) Active Problems Problem Noted Date Diagnosed Date Diabetes mellitus with microalbuminuria 05/12/20 25 Bronchitis 02/22/2025 Chest pain 02/22/2025 CHF (congestive heart failure) 02/22/2025 COVID-19 02/22/2025 CHRISTIANSEN (dyspnea on exertion) 02/22/2025 Elevated TSH 02/22/2025 Gastroenteritis 02/22/2025 MDD (major depressive disorder) 02/22/2025 JIMBO on CPAP 02/22/2025 Post covid- condition, unspecified 02/22/2025 Asthma exacerbation 02/22/2025 Bronchial asthma 02/22/2025 Chronic diastolic heart failure 02/22/2025 Morbid obesity 02/22/2025 Acute hypotension 02/22/2025 HTN (hypertension) 02/22/2025 Atrial fibrillation with rapid ventricular respo nse 02/22/2025 PAF (paroxysmal atrial fibrillation) 02/22/2025 Tremor of both hands 01/04/2025 Skin lesion 01/04/2025 Dizziness and giddiness 12/20/2024 Assessment & Plan (12/20/2024 4:54 PM EST): Patient with a history of atrial fibrillation not on metoprolol and Eliquis 5 mg p.o. twice daily. Patient last saw her powderman back in September with no med changes. Patient mentions that she has had intermittent dizziness for years however describes the dizziness as positional. Most recently about 2 weeks ago she had an excruciating pain in the right side of her head then started having increasing disease which was constant and now to the point where she is very unsteady on her feet. Patient mentions that this is definitely different from her prior dizzy spells. On physical examination patient has noted to have horizontal nystagmus and normal strength in upper and lower extremities EKG obtained in the office reveals atrial fibrillation with nonspecific changes. Heart rate 79. Orthostatic vital signs in the office show positive for changes in blood pressures with laying to sitting with noted dizziness -Will obtain CT head to rule out underlying pathology such as stroke- urgent [facility] -f/u with me in 2 weeks. -If CT head is negative for any acute pathology neck step would be recommending physical therapy for vestibular treatments. Chronic diastolic (congestive) heart failure Paroxysmal atrial fibrillation 12/11/2023 Type 2 diabetes mellitus wit hout complication, without long-term current use of insulin 12/11/2023 New onset a-fib 07/23/2022 Overview (02/22/2025): Recurred 2022 Dr. Sprague jolted back to sinus rhythm 2022. History of uterine cancer 07/19/2019 Depression 07/19/2019 History of adjustable gastric banding 07/07/2019 Overview (02/22/2025): Subsequent port revisions Pain of right lower leg 06/16/2019 Chronic obstructive pulmonary disease 12/10/2018 Overview (12/10/2018): with asthmatic component. Asthma 12/07/2017 Essential hypertension 12/07/2017 Hypertension 12/07/2017 Hyperlipidemia 12/07/2017 Impaired fasting glucose 12/07/2017 Lymphadenopathy 12/07/2017 Mild persistent asthma without complication 11/17 Osteoarthritis 12/07/2017 Primary osteoarthritis of both knees 12/07/2017 Pure hypercholesterolemia 12/07/2017 Vitamin D deficiency 12/07/2017 Class 3 severe obesity due t o excess calories without serious comorbidity with body mass index (BMI) of 50.0 to 59.9 in adult Overview (08/12/2021): Lap band Encounters Date Type Department Care Team Description 08/02/2025 11:00 AM EDT Office Visit [facility] Internal Medicine [address] [place] [address] Ang Bernstein MD Routine general medical examination at a health care facility (Primary Dx); Diabetes mellitus with microalbuminuria; Need for prophylactic vaccination and inoculation against influenza; Other depression; Essential hypertension; Obesity, morbid; Chronic diastolic HF (heart failure); Permanent atrial fibrillation; Asthma-COPD overlap syndrome; Vitamin D deficiency; Vitamin B12 deficiency 08/01/2025 Documentation [facility] Internal Medicine [address] [facility] [place] [address] Ang Bernstein MD 07/14/2025 Refill [facility] [place] [address] Ang Bernstein MD Medication Refill 05/24/2025 Refill [facility] [place] Internal Medicine [address] [place] [address] Ang Bernstein MD Medication Refill from Last 3 Months Immunizations Immunization Administration Dates Next Due COVID-19 (Pre-09/07) Moderna Vaccine, Bivalent 6mo+ 12/20/2022 COVID-19 (Pre-09/07) Moderna Vaccine, mRNA, PF 10/05/2021,02/09/2021,01/12/2021 INFLUENZA, SPLIT VIRUS, TRIVALENT PF 07/28/2016 INFLUENZA, SPLIT VIRUS, TRIV ALENT W/ PRESERVATIVE IM 09/03/2015,11/23/2014,10/20/2011 Influenza High-Dose Quadriva lent Preservative Free IM 09/22/2023,09/18/2022,08/12/2021,08/02 Influenza High-Dose Trivalen t Preservative Free IM 08/02/2025,07/26/2024 Influenza Quadrivalent MDCK Preservative Free IM 09/06/2019 Influenza Quadrivalent Prese rvative Free IM 08/31/2018 Influenza, Unspecified Formulation 08/17/2018,,08/15/2009 Pneumococcal conjugate PCV13 10/28/2019 Pneumococcal polysaccharide PPSV23 05/06/2021, Tdap 01/30/2010 Family History Medical History Relation Comments Hypertension Brother Osteoarthritis Brother Polycystic ovary syndrome Daughter Cerebral aneurysm Father Hypertension Father Cancer Mother Graves' disease Mother Hypertension Mother Haleigh's thyroiditis Sister 1 Celiac disease Sister 2 Hip dysplasia Sister 2 Osteopenia Sister 2 Relation Status Comments Brother Alive Daughter Alive Father (Age 52) Mother (Age 71) Sister 1 Alive Sister 2 Alive Social History Tobacco Use Types Packs/Day Years Used Date Smoking Tobacco: Former Cigarettes 1.5 21.4 0 06/16/1971 - 1992 Smokeless Tobacco: Never Tobacco Cessation:Counseling Given: Not Answered Alcohol Use Standard Drinks/Week Comments Yes 0 [...] ecorded Denied Basic Needs Not on file 08/01/2025 In the past 12 months have y ou been in a relationship with a person who hurts, threatens, or tries to control you? No 08/01/2025 Worried food would run out Not on file 08/01 In the past 12 months have y ou been in a relationship with a person who hurts, threatens, or tries to control you? No 08/01/2025 Comments No Sex and Gender Information Value Date Recorded Sex Assigned at Not on file Legal Sex Female 9:56 PM EDT Gender Identity Not on file Sexual Orientation Not on file Last Filed Vital Signs Vital Sign Reading Time Taken Comments Blood Pressure 140/90 08/02/2025 11:46 AM EDT Pulse 66 08/02/2025 11:21 AM EDT Temperature 35.5 C (95.9 F) 08/02/2025 11:21 AM EDT Respiratory Rate 16 08/02/2025 11:21 AM EDT Oxygen Saturation 99% 08/02/2025 11:21 AM EDT Inhaled Oxygen Concentration - - Weight 129.7 kg (286 lb) 08/02/2025 11:21 AM EDT Height 158.7 cm (5' 2.48 ) 08/02/2025 11:21 AM E DT Body Mass Index 51.51 08/02/2025 11:21 AM EDT Plan of Treatment Upcoming Encounters Date Type Department Care Team (Late st Contact Info) Description 11/01/2025 3:30 PM EST Office Visit [facility] Internal Medicine [address] [place] [address] Ang Bernstein MD 40 [place] [address] [email or web address] Health Maintenance Due Date Last Done Comments COLOGUARD 1999 FIT TEST 1999 FOBT 1999 SIGMOIDOSCOPY 1999 VIRTUAL COLONOSCOPY 1999 ZOSTER VACCINES (1 of 2) 2004 RSV VACCINE (1 - Risk 60-74 years 1-dose series) 2014 Adult Td,Tdap Booster 01/31/2020 01/30/2010 DIABETIC EYE EXAM 01/12/2025 01/12/2024, , 11/23/2023, Additional history exists COVID-19 VACCINE ( season) 2025 12/20/2022, 10/05/2021, 02/09/2021, Additional history exists HEMOGLOBIN A1C 09/27/2025 03/27/2025, 01/0 07/2025, 07/25/2024, Additional history exists BLOOD PRESSURE 01/30/2026 08/02/2025 ALT LEVEL (ALANINE AMINOTRANSFERASE) 03/27/2026 03/27/2025, 11/24/2024, 07/25/2024, Additional history exists CREATININE LEVEL 03/27/2026 03/27/2025, 07/2025, 07/25/2024, Additional history exists POTASSIUM LEVEL 03/27/2026 03/27/2025, 01/0 07/2025, 07/25/2024, Additional history exists TSH LEVEL 03/27/2026 03/27/2025, 01/0 07/2025, 07/25/2024, Additional history exists DEPRESSION SCREENING 08/01/2026 08/01/2025, 08/01/20 25 COLONOSCOPY 08/28/2026 08/28/2016, 08/06/2006 COLORECTAL CANCER SCREENING 08/28/2026 MAMMOGRAM 04/25/2027 04/25/2025, 04/16, 04/20/2024, Additional history exists HEPATITIS C SCREENING Completed 10/28/2019, 019 OSTEOPOROSIS SCREENING INITIAL (ONE-TIME) Completed 02/07/2021, 11/30/2008 PNEUMOCOCCAL VACCINES (50+ years) Completed 05/06/2021, 10/28/2019, 10/16/2006 INFLUENZA VACCINE Completed 08/02/2025, , 09/22/2023, Additional history exists SMOKING STATUS SCREENING (Once After 26 Yrs) Completed 08/02/2025 HEPATITIS A VACCINES Aged Out No long er eligible based on patient's age to complete this topic HIB VACCINES Aged Out No longer eligi ble based on patient's age to complete this topic MENINGOCOCCAL VACCINES (ACWY) Aged Out No longer eligible based on patient's age to complete this topic MENINGOCOCCAL VACCINES (B) Aged Out N o longer eligible based on patient's age to complete this topic Medical Devices Not on file Procedures Procedure Name Priority Date/Time Associated Diagnosis Comments MAMMOGRAPHY Routine 04/25/2025 4:38 PM EDT OUTSIDE HEMOGLOBIN A1C Routine 03/27/2025 OUTSIDE TSH LEVEL Routine 03/27/2025 OUTSIDE POTASSIUM LEVEL Routine 03/27/2025 OUTSIDE SERUM CREATININE LEVEL Routine 03/27/2025 OUTSIDE ALT LEVEL Routine 03/27/2025 DIABETES EYE EXAM FOR RESULT ENTRY ONLY Routine 11/23/2023 OUTSIDE BONE DENSITY SCREENING Routine 02/07/2021 HEPATITIS C ANTIBODY, QUALITATIVE Routine 10/28/2019 2:23 PM EST Encounter for hepatitis C screening test for low risk patient COLONOSCOPY FOR RESULT ENTRY ONLY Routine 08/28/2016 from Last 3 Months or Most Recently Relevant to Health Maintenance Results * MAMMOGRAPHY FOR RESULT ENTRY ONLY (04/25/2025 4:38 PM EDT) us Historical Provider HEALTH MAINTENANCE Final Result * Outside TSH Level (03/27/2025) TSH - External 1.37 0.5 - 5 uIU/L EXTERNAL NON-INTERFACED REF LAB us Historical Provider LAB BLOOD ORDERABLES Za l Result Performing Organization Address City/[facility]/ZIP Co de Phone Number EXTERNAL NON-INTERFACED REF LAB * Outside Potassium Level (03/27/2025) Pathologist [facility] Potassium level - External 4.5 3.4 - 5.0 mmol/L EXTERNAL NON-INTERFACED REF LAB Historical Provider MD LAB BLOOD ORDERABLES Za l Result Performing Organization Address City/[facility] Co de Phone Number EXTERNAL NON-INTERFACED REF LAB * Outside HbA1c (03/27/2025) Pathologist [facility] Hemoglobin A1c - External 6.2 % EXTERNAL NON-INTERFACED REF LAB Result [facility] Provider MD LAB BLOOD ORDERABLES Za l Result Performing Organization Address City/[facility] Co de Phone Number EXTERNAL NON-INTERFACED REF LAB * (ABNORMAL) Outside Serum Creatinine Level (03/27/2025) Pathologist [facility] Creatinine, serum - External 0.65(A) 0.8 - 1.3 mg/dL EXTERNAL NON-INTERFACED REF LAB Result [facility] Provider MD LAB BLOOD ORDERABLES Za l Result Performing Organization Address City/[facility] Co de Phone Number EXTERNAL NON-INTERFACED REF LAB * Outside ALT Level (03/27/2025) [facility] ALT - External 12 5 - 30 U/L EXTE RNAL NON-INTERFACED REF LAB Result [facility] Provider MD LAB BLOOD ORDERABLES Za l Result Performing Organization Address [facility] de Phone Number EXTERNAL NON-INTERFACED REF LAB * HM DIABETES EYE EXAM FOR RESULT ENTRY ONLY (11/23/2023) Pathologist [facility] HM EYE EXAM normal Historical Provider HEALTH MAINTENANCE Final Result * OUTSIDE BONE DENSITY SCREENING (02/07/2021) [facility] BONE DENSITY SCREENING - EXTERNAL osteopenia Historical Provider HEALTH MAINTENANCE Final Result * Hepatitis C antibody, qualitative (10/28/2019 2:23 PM EST) [facility] HCV NON-REACTIV E NON-REACTI VE [facility] Blood 10/28/2019 2:23 PM EST 10/28/2019 2:26 PM EST us Ang Bernstein MD LAB BLOOD ORDERABLES Final Re sult [facility] [address] [place] [address] * COLONOSCOPY FOR RESULT ENTRY ONLY (08/28/2016) Colonoscopy 10 yr recall us Historical Provider HEALTH MAINTENANCE Edited Result - Final from Last 3 Months or Most Recently Relevant to Health Maintenance Insurance [employer] MEDICARE SUPPLEMENT MEDICARE PART A & B [facility] EXTENSION MEDICARE SUPPLEMENT MEDICARE PART A & [place] [address] [place] [id number] EX[employer]ENSION MEDICARE SUPPLEMENT MEDICARE PART A & B [facility] EXTENSION MEDICARE SUPPLEMENT MEDICARE PART A & [place] [address] [place] [address] [employer] MEDICARE SUPPLEMENT MEDICARE PART A & B [facility] EXTENSION MEDICARE SUPPLEMENT MEDICARE PART A & B [facility] EXTENSION MEDICARE SUPPLEMENT MEDICARE PART A & B [employer] [facility] EXTENSION MEDICARE SUPPLEMENT MEDICARE PART A & B [employer] [facility] EXTENSION MEDICARE SUPPLEMENT MEDICARE PART A & B Care Teams Stripping Machine Operator Relationship Specialty Start Date End Date Ang Bernstein MD [address] [place] [address] [email or web address] PCP - General 10/15/17 Ang Bernstein MD [address] [place] [address] [email or web address] Insurance Assigned Provider 02/20/24 Additional Source Comments The information contained in this document represents components of the legal health record. It is not the complete legal health record.[facility]
--- OUTSIDE RECORDS SUMMARY | 2025-08-14 13:48 | XMS_ITS | Encounter Summary ---
Author Organization [facility] Address [address] [place] [address] Phone Care Team Providers Care Power Tool Repair Technician Name Role Phone Ang Bernstein MD Primary Care Provider [phone] Ang Bernstein MD Unavailable [phone] Encounter Details Date Type Department Care Team (Late st Contact Info) Description 03/22/2025 Documentation [facility] Internal Medicine [address] [place], [place] [id number] Ang Bernstein MD 40 [place] [address] [email or web address] Social History Tobacco Use Types Packs/Day Years [...] Description 11/01/2025 3:30 PM EST Office Visit [facility] Internal Medicine 40 [place] [address] Ang Bernstein MD 40 [place] [address] [email or web address] documented as of this encounter Procedures Procedure [...] documented as of this encounter Care Teams Power Tool Repair Technician Relationship Specialty Start Date End Date Ang Bernstein MD 40 [place] [address] [email or web address] PCP - General 10/15/17 Ang Bernstein MD [address] [place] [address] [email or web address] Insurance Assigned Provider 02/20/24 documented as of this encounter Additional Source Comments The information contained in this document represents components of the legal health record. It is not the complete legal health record.[facility]
--- OUTSIDE RECORDS SUMMARY | 2025-08-14 13:48 | XMS_ITS | Encounter Summary ---
Author Organization [facility] Address [address] [facility] [address] [place] [address] Phone Care Team Providers Care Braided Rug Maker Name Role Phone Ang Bernstein MD Primary Care Provider [phone] Ang Bernstein MD Unavailable [phone] Ela Alarcon RN Unavailable [phone] Encounter Details Date Type Department Care Team (Late st Contact Info) Description 03/25/2023 Telephone [facility] [place] Internal Medicine 40 [place] [address] Barbara Barrientos RN [email or web address] Social History Tobacco Use Types Packs/Day Years [...] Description 11/01/2025 3:30 PM EST Office Visit [facility] Internal Medicine 40 [place], [place] [phone] Ang Bernstein MD 40 [place], [place] [phone] documented as of this encounter Visit Diagnoses Not on filedocumented in this encounter Additional Health Concerns Assessment Noted Time PHQ-9 Depression Total Score: 6 04/22/20 22 3:50 PM EDT PHQ-2 Depression Total Score: 2 04/22/20 22 3:50 PM EDT documented as of this encounter Care Teams Braided Rug Maker Relationship Specialty Start Date End Date Ang Bernstein MD 40 [place] [address] PCP - General 10/15/17 Ang Bernstein MD [address] [place], [place] [phone] Insurance Assigned Provider 02/20/24 Ela Alarcon, RN [address] [place] [address] [phone] [email or web address] iCMP Resource Efficiency ManagerLaboratory Chief 06/15/23 07/05/23 documented as of this encounter Additional Source Comments The information contained in this document represents components of the legal health record. It is not the complete legal health record.[facility]
--- OUTSIDE RECORDS SUMMARY | 2025-08-14 13:48 | XMS_ITS | Encounter Summary ---
Author Organization [facility] Address [address] [facility] [address] [place] [address] Phone Care Team Providers Care Commercial Service Technician Name Role Phone Ang Bernstein MD Unavailable Renu Araujo DIPPER OPERATOR Unavailable Josi Quinonez DIPPER OPERATOR Unavailable Becka Brar DIPPER OPERATOR Unavailable [phone] Bryce Steve MD Unavailable Ang Bernstein MD Primary Care Provider Ang Bernstein MD Unavailable Ela Alarcon RN Unavailable Encounter Details Date Type Department Care Team (Late st Contact Info) Description 06/23/2019 [facility] [place] 40 [place] [address] Jelena Sow MD [address] [place] [address] [facility] [place], [place] [phone] [email or web address] Right ankle pain, unspecified chronicity [...] Description 11/01/2025 3:30 PM EST Office Visit [facility] Internal Medicine 40 [place], [place] [phone] Ang Bernstein MD 40 [place], [place] 1045707 [email or web address] documented as of this encounter Results * [...] documented as of this encounter Care Teams Commercial Service Technician Relationship Specialty Start Date End Date Ang Bernstein MD 40 [place] [address] [email or web address] PCP - General 10/15/17 Ang Bernstein MD 40 [place] [address] Historical LMR Provider 09/05/17 09/13/19 Renu Araujo, DIPPER OPERATOR 21 [place] [address] [email or web address] Historical LMR Provider 09/05/1709/13 Josi Quinonez, [place] [address] [address] Historical LMR Provider 09/05/1709/13 Becka Brar NP [address] [address] Historical LMR Provider 09/05/17 09/13/19 [place] [address] Historical LMR Provider 09/05/17 Ang Bernstein MD 40 [place] [address] Insurance Assigned Provider 02/20/24 Ela Alarcon, RN [address] [place] [address] iCMP Cell GeneticistSole Filler 06/15/23 07/05/23 documented as of this encounter Additional Source Comments The information contained in this document represents components of the legal health record. It is not the complete legal health record.[facility]
== END 2025-08-14 13:20 | disposition home or self-care (01) ==
LOC: HO.HCS 12:37
PROVIDERS: PCP Internal Medicine; Visit Provider Internal Medicine Cardiovascular Disease
DX: I50.32 Chronic diastolic (congestive) heart failure (principal); I48.19 Other persistent atrial fibrillation
CPT/HCPCS: 93010; 99214

== ENCOUNTER → 2025-08-14 12:37 | Outpatient (BNVA) | payer MEDICARE, OTHER, SELFPAY | PROVIDERS: PCP Internal Medicine; Visit Provider Internal Medicine Cardiovascular Disease | DX: I50.32 Chronic diastolic (congestive) heart failure (principal); I48.19 Other persistent atrial fibrillation | CPT/HCPCS: 93005; 99212 ==

== ENCOUNTER 2025-08-31 11:43 | Day surgery (SDC) | payer MEDICARE, OTHER, SELFPAY ==
--- OUTSIDE RECORDS SUMMARY | 2025-08-22 11:28 | XMS_ITS | Encounter Summary ---
Author Organization [facility] Address [address] [facility] [address] [place] [address] Phone Care Team Providers Care Chef Teacher Name Role Phone Ang Bernstein MD Unavailable Renu Araujo UNDERCAR SPECIALIST Unavailable Josi Quinonez UNDERCAR SPECIALIST Unavailable [phone] Becka Brar UNDERCAR SPECIALIST Unavailable [phone] Bryce Steve MD Unavailable Ang Bernstein MD Primary Care Provider Ang Bernstein MD Unavailable [phone] Ela Alarcon RN Unavailable Encounter Details Date Type Department Care Team (Late st Contact Info) Description 06/23/2019 Ancillary Orders [facility] [address] [place] [address] Jelena Sow MD [address] [place] [address] [facility], [place] [address] Social History Tobacco Use Types Packs/Day Years [...] Description 11/01/2025 3:30 PM EST Office Visit [facility] Internal Medicine 40 [place] [address] Ang Bernstein MD 40 [place] [address] [email or web address] documented as of this encounter Visit Diagnoses Not on filedocumented in this encounter Additional Health Concerns Infection Onset Date Last Indicated Resolved Time CoV-Presumed 06/13/2022 06/13/2022 07/04/2022 1:21 AM EDT Assessment Noted Time PHQ-2 Depression Total Score: 0 12/10/19 8:40 AM EST documented as of this encounter Care Teams Chef Teacher Relationship Specialty Start Date End Date Ang Bernstein MD 40 [place] [address] PCP - General 10/15/17 Ang Bernstein MD 40 [place] [address] Historical LMR Provider 09/05/17 09/13/19 Renu Araujo NP [address] [place] [address] [email or web address] Historical LMR Provider 09/05/1709/13 Josi Quinonez NP 21 [facility] [address] [place] [address] Historical LMR Provider 09/05/1709/13 Becka Brar NP 26 [facility] 6 [place] [address] Historical LMR Provider 09/05/17 09/13/19 [place] [address] Historical LMR Provider 09/05/17 Ang Bernstein MD 40 [place] [address] Insurance Assigned Provider 02/20/24 Ela Alarcon, RN 10 [place] [address] [email or web address] [facility] OrganizerBorder Machine Operator 06/15/23 07/05/23 documented as of this encounter Additional Source Comments The information contained in this document represents components of the legal health record. It is not the complete legal health record.[facility]
--- OUTSIDE RECORDS SUMMARY | 2025-08-22 11:28 | XMS_ITS | Encounter Summary ---
Author Organization [facility] Address [address] [place] [address] Phone Care Team Providers Care Attendant Campground Name Role Phone Ang Bernstein MD Primary Care Provider [phone] Ang Bernstein MD Unavailable [phone] Encounter Details Date Type Department Care Team (Late st Contact Info) Description 12/20/2024 Procedure Pass [facility], Ct Scan - [address] [address] Social History Tobacco Use Types Packs/Day Years [...] Description 11/01/2025 3:30 PM EST Office Visit [facility] Internal Medicine 40 [place], [place] [phone] Ang Bernstein MD 40 [place] [address] documented as of this encounter Visit Diagnoses Not on filedocumented in this encounter Additional Health Concerns Assessment Noted Time PHQ-9 Depression Total Score: 6 04/22/20 22 3:50 PM EDT PHQ-2 Depression Total Score: 2 07/21/20 24 6:18 PM EDT documented as of this encounter Care Teams Attendant Campground Relationship Specialty Start Date End Date Ang Bernstein MD 40 [place] [address] PCP - General 10/15/17 Ang Bernstein MD 40 [place] [address] Insurance Assigned Provider 02/20/24 documented as of this encounter Additional Source Comments The information contained in this document represents components of the legal health record. It is not the complete legal health record.[facility]
--- OUTSIDE RECORDS SUMMARY | 2025-08-22 11:28 | XMS_ITS | Encounter Summary ---
Author Organization [facility] Address [address] [facility] [address] [place] [address] Phone Care Team Providers Care Customer Retention Specialist Name Role Phone Ang Bernstein MD Primary Care Provider [phone] Ang Bernstein MD Unavailable [phone] Ela Alarcon RN Unavailable [phone] Encounter Details Date Type Department Care Team (Late st Contact Info) Description 03/25/2023 Telephone [facility] [place] Internal Medicine 40 [place] [address] Barbara Barrientos RN [email or web address] Social History Tobacco Use Types [...] Description 11/01/2025 3:30 PM EST Office Visit [facility] Internal Medicine 40 [place], [place] [phone] Ang Bernstein MD 40 [place], [place] [phone] documented as of this encounter Visit Diagnoses Not on filedocumented in this encounter Additional Health Concerns Assessment Noted Time PHQ-9 Depression Total Score: 6 04/22/20 22 3:50 PM EDT PHQ-2 Depression Total Score: 2 04/22/20 22 3:50 PM EDT documented as of this encounter Care Teams Customer Retention Specialist Relationship Specialty Start Date End Date Ang Bernstein MD 40 [place] [address] PCP - General 10/15/17 Ang Bernstein MD 40 [place], [place] [phone] Insurance Assigned Provider 02/20/24 Ela Alarcon, RN [address] [place] [address] [phone] [email or web address] iCMP Conveyor Feeder OffbearerInternet Sourcer 06/15/23 07/05/23 documented as of this encounter Additional Source Comments The information contained in this document represents components of the legal health record. It is not the complete legal health record.[facility]
--- OUTSIDE RECORDS SUMMARY | 2025-08-22 11:28 | XMS_ITS | Encounter Summary ---
Author Organization [facility] Address [address] [facility] [address] [place] [address] Phone Care Team Providers Care Transportation Inspector Name Role Phone Ang Bernstein MD Primary Care Provider [phone] Ang Bernstein MD Unavailable [phone] Encounter Details Date Type Department Care Team (Late st Contact Info) Description 01/04/2025 Procedure Pass [facility], [address] [address] Social History Tobacco Use Types Packs/Day Years [...] Description 11/01/2025 3:30 PM EST Office Visit [facility] Internal Medicine 40 [place], [place] [phone] Ang Bernstein MD 40 [place] [address] documented as of this encounter Visit Diagnoses Not on filedocumented in this encounter Additional Health Concerns Assessment Noted Time PHQ-9 Depression Total Score: 6 04/22/20 22 3:50 PM EDT PHQ-2 Depression Total Score: 2 07/21/20 24 6:18 PM EDT documented as of this encounter Care Teams Transportation Inspector Relationship Specialty Start Date End Date Ang Bernstein MD 40 [place] [address] PCP - General 10/15/17 Ang Bernstein MD 40 [place] [address] Insurance Assigned Provider 02/20/24 documented as of this encounter Additional Source Comments The information contained in this document represents components of the legal health record. It is not the complete legal health record.[facility]
--- OUTSIDE RECORDS SUMMARY | 2025-08-22 11:29 | XMS_ITS | Encounter Summary ---
Author Organization [facility] Address [address] [facility] [address] [place] [address] Phone Care Team Providers Care Historical Manuscripts Curator Name Role Phone Ang Bernstein MD Unavailable Renu Araujo SYSTEM TRAINER Unavailable Josi Quinonez SYSTEM TRAINER Unavailable [phone] Becka Brar SYSTEM TRAINER Unavailable [phone] Bryce Steve MD Unavailable Ang Bernstein MD Primary Care Provider Ang Bernstein MD Unavailable Ela Alarcon RN Unavailable Encounter Details Date Type Department Care Team (Late st Contact Info) Description 06/23/2019 [facility] [place] 40 [place] [address] Jelena Sow MD [address] [place] [address] [facility] [place] [address] [email or web address] Right ankle pain, unspecified chronicity [...] Description 11/01/2025 3:30 PM EST Office Visit [facility] Internal Medicine 40 [place], [place] [phone] Ang Bernstein MD 40 [place], [place] 1483007 [email or web address] documented as of this encounter Results * [...] documented as of this encounter Care Teams Historical Manuscripts Curator Relationship Specialty Start Date End Date Ang Bernstein MD 40 [place] [address] [email or web address] PCP - General 10/15/17 Ang Bernstein MD 40 [place] [address] Historical LMR Provider 09/05/17 09/13/19 Renu Araujo, SYSTEM TRAINER 21 [place] [address] [email or web address] Historical LMR Provider 09/05/1709/13 Josi Quinonez, [place] [address] [address] Historical LMR Provider 09/05/1709/13 Becka Brar NP [address] [address] Historical LMR Provider 09/05/17 09/13/19 [place] [address] Historical LMR Provider 09/05/17 Ang Bernstein MD 40 [place] [address] Insurance Assigned Provider 02/20/24 Ela Alarcon, RN [address] [place] [address] iCMP Property Management AccountantEnergy Rater 06/15/23 07/05/23 documented as of this encounter Additional Source Comments The information contained in this document represents components of the legal health record. It is not the complete legal health record.[facility]
--- OUTSIDE RECORDS SUMMARY | 2025-08-22 11:29 | XMS_ITS | Clinical Summary ---
Author Organization [facility] Address [address] [facility] [address] [place] [address] Phone Care Team Providers Care Industrial Coffee Grinder Name Role Phone Ang Bernstein MD Primary Care Provider [phone] Ang Bernstein MD Unavailable [phone] Allergies Active Allergy Reactions Criticality Noted Date [...] p.o. twice daily. Patient last saw her medical staff assistant back in September with no med changes. [...] Description 08/02/2025 11:00 AM EDT Office Visit [facility] Internal Medicine 40 [place] [address] Ang Bernstein MD Routine general medical examination at a health care facility (Primary Dx); Diabetes mellitus with microalbuminuria; Need for prophylactic vaccination and inoculation against influenza; Other depression; Essential hypertension; Obesity, morbid; Chronic diastolic HF (heart failure); Permanent atrial fibrillation; Asthma-COPD overlap syndrome; Vitamin D deficiency; Vitamin B12 deficiency 08/01/2025 Documentation [facility] Internal Medicine 40 [facility] [place] [address] Ang Bernstein MD 07/14/2025 Refill [facility] Internal Medicine 40 [facility] [place] [address] Ang Bernstein MD Medication Refill 05/24/2025 Refill [facility] [place] Internal Medicine [address] [place] [address] Ang Bernstein MD Medication Refill from Last [...] Description 11/01/2025 3:30 PM EST Office Visit [facility] Internal Medicine 40 [place] [address] Ang Bernstein MD 40 [place] [address] [email or web address] Health Maintenance Due Date Last Done Comments [...] ORDERABLES Za l Result Performing Organization Address City/[facility]/ZIP Co de Phone Number EXTERNAL NON-INTERFACED REF LAB * Outside Potassium Level (03/27/2025) Pathologist [facility] Potassium level - External 4.5 3.4 - 5.0 mmol/L EXTERNAL NON-INTERFACED REF LAB Historical Provider MD LAB BLOOD ORDERABLES Za l Result Performing Organization Address City/[facility] Co de Phone Number EXTERNAL NON-INTERFACED REF LAB * Outside HbA1c (03/27/2025) Pathologist [facility] Hemoglobin A1c - External 6.2 % EXTERNAL NON-INTERFACED REF LAB Result [facility] Provider MD LAB BLOOD ORDERABLES Za l Result Performing Organization Address City/[facility] Co de Phone Number EXTERNAL NON-INTERFACED REF LAB * (ABNORMAL) Outside Serum Creatinine Level (03/27/2025) Pathologist [facility] Creatinine, serum - External 0.65(A) 0.8 - 1.3 mg/dL EXTERNAL NON-INTERFACED REF LAB Result [facility] Provider MD LAB BLOOD ORDERABLES Za l Result Performing Organization Address City/[facility] Co de Phone Number EXTERNAL NON-INTERFACED REF LAB * Outside ALT Level (03/27/2025) [facility] ALT - External 12 5 - 30 U/L EXTE RNAL NON-INTERFACED REF LAB Result [facility] Provider MD LAB BLOOD ORDERABLES Za l Result Performing Organization Address [place]/[facility] de Phone Number EXTERNAL NON-INTERFACED REF LAB * HM DIABETES EYE EXAM FOR RESULT ENTRY ONLY (11/23/2023) Pathologist [facility] HM EYE EXAM normal Historical Provider HEALTH MAINTENANCE Final Result * OUTSIDE BONE DENSITY SCREENING (02/07/2021) [facility] BONE DENSITY SCREENING - EXTERNAL osteopenia Historical Provider HEALTH MAINTENANCE Final Result * Hepatitis C antibody, qualitative (10/28/2019 2:23 PM EST) [facility] HCV NON-REACTIV E NON-REACTI VE [facility] Blood 10/28/2019 2:23 PM EST 10/28/2019 2:26 PM EST us Ang Bernstein MD LAB BLOOD ORDERABLES Final Re sult [facility] [address] [place] [address] * COLONOSCOPY FOR RESULT ENTRY ONLY (08/28/2016) Colonoscopy 10 yr recall us Historical Provider HEALTH MAINTENANCE Edited Result - Final from Last 3 Months or Most Recently Relevant to Health Maintenance Insurance [employer] MEDICARE SUPPLEMENT MEDICARE PART A & B [facility] EXTENSION MEDICARE SUPPLEMENT MEDICARE PART A & [place] [address] [address] EXTENSION MEDICARE SUPPLEMENT MEDICARE PART A & B [facility] EXTENSION MEDICARE SUPPLEMENT MEDICARE PART A & [place] [address] [address] [address] EXTENSION MEDICARE SUPPLEMENT MEDICARE PART A & B [facility] EXTENSION MEDICARE SUPPLEMENT MEDICARE PART A & B [facility] EXTENSION MEDICARE SUPPLEMENT MEDICARE PART A & B [employer] [facility] EXTENSION MEDICARE SUPPLEMENT MEDICARE PART A & B [employer] [facility] EXTENSION MEDICARE SUPPLEMENT MEDICARE PART A & B Care Teams Industrial Coffee Grinder Relationship Specialty Start Date End Date Ang Bernstein MD [address] [place] [address] [email or web address] PCP - General 10/15/17 Ang Bernstein MD [address] [place] [address] [email or web address] Insurance Assigned Provider 02/20/24 Additional Source Comments The information contained in this document represents components of the legal health record. It is not the complete legal health record.[facility]
--- OUTSIDE RECORDS SUMMARY | 2025-08-22 11:29 | XMS_ITS | Encounter Summary ---
Author Organization [facility] Address [address] [facility] [address] [place] [address] Phone Care Team Providers Care Business Operations Director Name Role Phone Ang Bernstein MD Primary Care Provider [phone] Ang Bernstein MD Unavailable [phone] Encounter Details Date Type Department Care Team (Late st Contact Info) Description 01/04/2025 Procedure Pass [facility], [address] [address] Social History Tobacco Use Types Packs/Day Years [...] 3:30 PM EST Office Visit [facility] Internal Medicine 40 [place], [place] [phone] Ang Bernstein MD 40 [place] [address] documented as of this encounter Visit Diagnoses Not on filedocumented in this encounter Additional Health Concerns Assessment Noted Time PHQ-9 Depression Total Score: 6 04/22/20 22 3:50 PM EDT PHQ-2 Depression Total Score: 2 07/21/20 24 6:18 PM EDT documented as of this encounter Care Teams Business Operations Director Relationship Specialty Start Date End Date Ang Bernstein MD 40 [place] [address] PCP - General 10/15/17 Ang Bernstein MD [address] [place] [address] Insurance Assigned Provider 02/20/24 documented as of this encounter Additional Source Comments The information contained in this document represents components of the legal health record. It is not the complete legal health record.[facility]
--- OUTSIDE RECORDS SUMMARY | 2025-08-22 11:29 | XMS_ITS | Encounter Summary ---
Author Organization Formerly [facility] Address [address] [place] [address] Phone Care Team Providers Care Navy Fighter Pilot Name Role Phone Ang Bernstein MD Primary Care Provider [phone] Ang Bernstein MD Unavailable [phone] Encounter Details Date Type Department Care Team (Late st Contact Info) Description 03/22/2025 Documentation [facility] Internal Medicine [address] [place], [place] [phone] Ang Bernstein MD [address] [place] [address] [email or web address] Social History Tobacco Use Types Packs/Day Years [...] Description 11/01/2025 3:30 PM EST Office Visit [facility] Internal Medicine [address] [place] [address] Ang Bernstein MD [address] [place] [address] [email or web address] documented as of this encounter Procedures Procedure [...] documented as of this encounter Care Teams Navy Fighter Pilot Relationship Specialty Start Date End Date Ang Bernstein MD [address] [place] [address] [email or web address] PCP - General 10/15/17 Ang Bernstein MD [address] [place] [address] [email or web address] Insurance Assigned Provider 02/20/24 documented as of this encounter Additional Source Comments The information contained in this document represents components of the legal health record. It is not the complete legal health record.[facility]
--- NOTE | 2025-08-30 08:43 | HO.ANESPROP2 ---
Documented by User: Kendra Britton NP 08/30/25 08:45 HPI - Anesthesia Eval Consult details Narrative: 69yo F for Cardioversion s/p same 05/2025 with GA-mask Eliquis for afib BMI 50.5 Anesthesia Pre-Procedure Meds Is the patient on any of the following meds?: GLP1/DPP4 PMFSH Active Problems Active Problems: All Active Problems CHF (congestive heart failure) (Acute) Persistent atrial fibrillation (Acute) Encounter for monitoring sotalol therapy (Acute) Atrial fibrillation with rapid ventricular response (Acute) A-fib (Acute) PAF (paroxysmal atrial fibrillation) (Acute) COVID-19 (Acute) Chest pain (Acute) CHRISTIANSEN (dyspnea on exertion) (Acute) Chronic diastolic heart failure (Acute) Atrial fibrillation, rapid (Acute) Elevated TSH (Acute) Bronchitis (Acute) Asthma exacerbation (Acute) MDD (major depressive disorder) (Acute) HTN (hypertension) (Acute) Post covid-19 condition, unspecified (Acute) Morbid obesity (Acute) JIMBO on CPAP (Acute) Bronchial asthma (Acute) Past Medical History Medical History Bilateral cataracts History of cardioversion GERD (gastroesophageal reflux disease) Bronchitis Asthma exacerbation PAF (paroxysmal atrial fibrillation) MDD (major depressive disorder) HTN (hypertension) Post covid-19 condition, unspecified Morbid obesity JIMBO on CPAP Bronchial asthma Family History Family history of problems with anesthesia: No Surgical History Surgical History History of cardioversion Anal fistula Hx of laparoscopic gastric banding History of hysterectomy for cancer H/O umbilical hernia repair History of cholecystectomy H/O colonoscopy History of Problems with Anesthesia: No (See above. Surgery for gall bladder was in the 1980s. No problems with anesthesia since) Social History Social History Household Members: Spouse Housing: House Are you a primary manager respiratory care to a significant other at home: No Do you presently have visiting nurse or other home services: No Alcohol intake: never Patient Tobacco Use Status: Former Tobacco user Tobacco use type: Cigarette Years Smoked: 25 Second Hand Smoke Exposure: No Use of substances other than those prescribed or required for medical reasons: No Are you DNR?: No Advance Directives: No Advance Directives Information Provided: Yes Advance Directives Date on File: 12/23/22 Patient : No : No Poor oral hygiene: No service: No Current occupational status: unemployed Meds Allergies Allergy/AdvReac Type Severity Reaction Status Date / Time adhesive tape (ADHESIVE TAPE) Allergy Intermediate BLISTERS Verified 07/12/25 12:09 Home Medications ?Medication ?Instructions ?Recorded ?Confirmed ?Last Taken ?Type paroxetine HCl 30 mg tablet 45 mg PO DAILY 10/01/20 08/31/25 08/31/25 History mecobalamin (vitamin B12) 5,000 5,000 mcg PO DAILY 08/06/22 08/31/25 07/11/25 History mcg disintegrating tablet rosuvastatin 10 mg tablet 10 mg PO BEDTIME 08/06/22 08/31/25 07/11/25 History omeprazole 20 mg capsule,delayed 20 mg PO DAILY@0630 10/14/22 08/31/25 08/31/25 History release amiodarone 200 mg tablet 200 mg PO DAILY 07/12/25 08/31/25 08/31/25 History semaglutide 1 mg/dose (4 mg/3 mL) 4 mg subcut FR 07/12/25 08/14/25 08/20/25 History subcutaneous pen injector (Ozempic) Exam Narrative Narrative: EKG 07/2025 Details: Afib with RVR 123/min, anteroseptal infarct, QTc 455 msec. ECHO 06/2025 Conclusions: - The left ventricular systolic function is mildly decreased. The calculated ejection fraction is 51% by biplane method. - The left atrium is severely dilated. - There is moderate mitral annular calcification. There is mild mitral valve regurgitation. - There is mild dilatation of the ascending aorta measuring 4.10 cm. Assessment and Plan Assessment Anesthesia Assessment: Chart Reviewed Final Anesthetic Review Family History of Problems with Anesthesia: No History of Problems with Anesthesia: No (See above. Surgery for gall bladder was in the 1980s. No problems with anesthesia since) Documented by User: Hillary Lewis MD 08/31/25 12:47 [facility] Past Medical History Medical History Bilateral cataracts History of cardioversion GERD (gastroesophageal reflux disease) Bronchitis Asthma exacerbation PAF (paroxysmal atrial fibrillation) MDD (major depressive disorder) HTN (hypertension) Post covid-19 condition, unspecified Morbid obesity JIMBO on CPAP Bronchial asthma Surgical History Surgical History History of cardioversion Anal fistula Hx of laparoscopic gastric banding History of hysterectomy for cancer H/O umbilical hernia repair History of cholecystectomy H/O colonoscopy Social History Social History Household Members: Spouse Housing: House Are you a primary manager respiratory care to a significant other at home: No Do you presently have visiting nurse or other home services: No Alcohol intake: never Patient Tobacco Use Status: Former Tobacco user Tobacco use type: Cigarette Years Smoked: 25 Second Hand Smoke Exposure: No Use of substances other than those prescribed or required for medical reasons: No Are you DNR?: No Advance Directives: No Advance Directives Information Provided: Yes Advance Directives Date on File: 12/23/22 Patient : No : No Poor oral hygiene: No service: No Current occupational status: unemployed Meds Allergies Allergy/AdvReac Type Severity Reaction Status Date / Time adhesive tape (ADHESIVE TAPE) Allergy Intermediate BLISTERS Verified 07/12/25 12:09 Home Medications ?Medication ?Instructions ?Recorded ?Confirmed ?Last Taken ?Type paroxetine HCl 30 mg tablet 45 mg PO DAILY 10/01/20 08/31/25 08/31/25 History mecobalamin (vitamin B12) 5,000 5,000 mcg PO DAILY 08/06/22 08/31/25 07/11/25 History mcg disintegrating tablet rosuvastatin 10 mg tablet 10 mg PO BEDTIME 08/06/22 08/31/25 07/11/25 History omeprazole 20 mg capsule,delayed 20 mg PO DAILY@0630 10/14/22 08/31/25 08/31/25 History release amiodarone 200 mg tablet 200 mg PO DAILY 07/12/25 08/31/25 08/31/25 History semaglutide 1 mg/dose (4 mg/3 mL) 4 mg subcut FR 07/12/25 08/14/25 08/20/25 History subcutaneous pen injector (Ozempic) Exam Airway Mallampati Class: III TM Dist: <=3cm Neck ROM: Full Heart: afib Lungs: cta Assessment and Plan Assessment Anesthesia Assessment: Anesthesia Plan Discussed Final Anesthetic Review NPO: Yes ASA Class: III Final Preanesthetic Review: No Changes in Pt Med Stat, Meds/Allgs Chart Reviewed, Consent Obtained/Reviewed and Anes Risks/Benef Reviewed Patient Risk: Intermediate Procedure Risk: Low Anesthetic Plan Anesthetic Plan: MAC: Disposition: Standard PACU
--- NOTE | 2025-08-31 | ECG_ITS ---
Test Reason : S/P CARDIOVERSION Blood Pressure : */* mmHG Vent. Rate : 83 BPM Atrial Rate : * BPM P-R Int : * ms QRS Dur : 90 ms QT Int : 414 ms P-R-T Axes : * 0 44 degrees QTcB Int : 486 ms Atrial fibrillation Nonspecific T wave abnormality Abnormal ECG When compared with ECG of 12-Jul-2025 12:19, No significant change was found Referred By: Jaime Clifford Electronically Signed By: Jaime Clifford
[2025-08-31 11:59] VITALS: BMI 53.5
[2025-08-31 12:15] VITALS: BP 162/108; PULSE 101; RESP 20; TEMP 35.7; O2SAT 99
[2025-08-31 12:18] VITALS: BP 164/117; PULSE 89
[2025-08-31] MEDS: Lactated Ringers 1,000 ML 50 ML IVCONT (12:34)
[2025-08-31 13:20] VITALS: BP 162/93; PULSE 101; RESP 22; TEMP 36.2; O2SAT 99
--- NOTE | 2025-08-31 13:22 | MHC.SHP ---
Pre-Procedural Eval Section A - 24 Hr Update-Section A only Date of Service: 08/31/25 The patient is an INPATIENT: No Section B - Complete if H&P > 30 days Chief Complaint: Paroxysmal atrial fibrillation Details of Present Illness: Symptomatic Afib-here for cardioversion Allergies: Allergies Allergy/AdvReac Type Severity Reaction Status Date / Time adhesive tape (ADHESIVE TAPE) Allergy Intermediate BLISTERS Verified 07/12/25 12:09 Plan Diagnosis/Plan: Unchanged I have reviewed the history and physical and performed a pertinent physical examination on my patient. No changes have occurred unless specified. Time Spent With Patient Time: Total time managing care of this patient today ____ minutes.
--- NOTE | 2025-08-31 13:44 | P.PNCAR_ITS ---
Cardioversion Procedure Note Cardioversion Date of Procedure: 08/31/25 Ordering Provider: Jaime Clifford Performing Provider: Jaime Clifford Indication for Procedure: Symptomatic Afib Performed with Transesophageal Echo: No History: 69 male with persistent Afib and CHRISTIANSEN. Here for cardioversion. Consent: Verbal and Written consent was obtained from the patient before starting. The patient was made aware of the risk of stroke, arrhythmia and failure. Procedure: After consent obtained, defib pads were attached and the patient was sedated by the anesthesia team. Once adequate sedation achieved, we gave 2 synchronized shocks 200 J each but we noted that the patient was in Afib. We changed the pad position and tried again but the patient continued to be in Afib. Impression: Unsuccessful cardioversion. Recommendations: c/w amiodarone and Eliquis. will arrange cardioversion at [facility] as they have the 360 J device and may be successful. She will need ablation. will discuss with EP.
[2025-08-31 13:45] VITALS: BP 126/88; PULSE 70; RESP 12; TEMP 36.6; O2SAT 96
[2025-08-31 14:00] VITALS: BP 119/69; PULSE 90; RESP 15; TEMP 36.4; O2SAT 96
== END 2025-08-31 14:26 | disposition home or self-care (01) ==
PROVIDERS: PCP Internal Medicine; Visit Provider Internal Medicine Cardiovascular Disease
PROC: 5A2204Z Restoration of Cardiac Rhythm, Single (ICD-10-PCS; principal; 2025-08-31 13:30)
DX: I48.19 Other persistent atrial fibrillation (principal); I48.0 Paroxysmal atrial fibrillation; R06.02 Shortness of breath; Z79.01 Long term (current) use of anticoagulants
CPT/HCPCS: 92960; 93005

== ENCOUNTER → 2025-08-31 11:43 | Outpatient (BNV) | payer MEDICARE, OTHER, SELFPAY | PROVIDERS: PCP Internal Medicine; Visit Provider Internal Medicine Cardiovascular Disease | DX: I48.91 Unspecified atrial fibrillation (principal) | CPT/HCPCS: 92960; 93010 ==

== ENCOUNTER 2025-09-13 13:16 | Outpatient (AMB) | payer MEDICARE, OTHER, SELFPAY ==
--- NOTE | 2025-09-13 13:23 | MHC.OFFVIS ---
Vital Signs 09/13/25 13:25 Height 5 ft 2 in Weight 294 lb 5.074 oz BMI 53.8 Pulse 97 Pulse Source Pulse Oximeter Pulse Oximetry (%) 97 Oxygen Delivery Method Room Air Intake Visit Reasons: Cough Intake Note: pt is here for follow up and states she has noticed a change with her breathing, she can even sit and feel like she cannot get a good breath in, she had a cardioversion x2 with no change, ablation is scheduled for 11/10/25. Rum Processing Operator Required: No Counter Hop: Counter Hop offered & declined Allergies adhesive tape (ADHESIVE TAPE) Allergy (Intermediate, Verified 09/13/25 13:56) BLISTERS Medication List - Last Reconciled 09/13/25 by Han Aldridge MD albuterol sulfate 90 mcg/actuation 2 puffs inhalation Q4-6H PRN 30 days amiodarone 200 mg PO DAILY apixaban (Eliquis) 5 mg PO BID cholecalciferol (vitamin D3) 25 mcg PO DAILY fluticasone furoate-vilanterol 200-25 mcg/dose (Breo Ellipta) 1 ea inhalation DAILY furosemide 40 mg PO DAILY mecobalamin (vitamin B12) 5,000 mcg PO DAILY metoprolol succinate ER 50 mg PO DAILY multivitamin 1 tab PO DAILY omega-3 fatty acids 1,250 mg PO DAILY omeprazole 20 mg PO DAILY@0630 paroxetine HCl 45 mg PO DAILY rosuvastatin 10 mg PO BEDTIME semaglutide (Ozempic) 4 mg subcut FR valsartan 320 mg PO DAILY HPI HPI Cough: Details: THIS 70 YEARS OLD VERY PLEASANT FEMALE WHO IS MORBIDLY OBESE AND HAS DIAGNOSIS OF OBSTRUCTIVE SLEEP APNEA, COMES FOR ROUTINE FOLLOW-UP. SHE HAS BEEN USING CPAP VERY REGULARLY EVERY NIGHT AND SLEEPS WELL. THERE ARE NO ISSUES WITH THE CPAP USAGE. SHE ALSO HAS RESTRICTIVE LUNG DISEASE DUE TO MORBID OBESITY, WELL COPD, . HAS BEEN USING BREO 200-250 1 INHALATION DAILY AND ALSO USES ALBUTEROL HFA ONCE OR TWICE A DAY. SHE IS HAVING PROBLEM WITH HER HEART RHYTHM AND HAS HAD CARDIOVERSION A FEW TIMES BUT CONTINUES TO HAVE PAROXYSMAL ATRIAL FIBRILLATION. SHE IS BEING TREATED WITH AMIODARONE 200 MG DAILY AND SMALL DOSE OF THE METOPROLOL WELL LASIX. SHE COMPLAINS OF TIGHT FEELING IN THE UPPER CHEST IF SHE HAS SOME PHLEGM, AND CAN NOT CLEAR. IS ALSO COMPLAINING OF SHORTNESS OF BREATH ON MINIMAL EXERTION LIKE WALKING SHORT DISTANCE. THIS IS NEW SYMPTOM, SHE DOES HAVE HISTORY OF MILD UPPER AIRWAY ALLERGIES. .DENIES ANY REAL CHEST PAIN SHE DENIES WHEEZING OR ANY EXCESSIVE COUGH. [facility] Medical History Bilateral cataracts History of cardioversion GERD (gastroesophageal reflux disease) Bronchitis Asthma exacerbation PAF (paroxysmal atrial fibrillation) MDD (major depressive disorder) HTN (hypertension) Post covid-19 condition, unspecified Morbid obesity JIMBO on CPAP Bronchial asthma Surgical History History of cardioversion Anal fistula Hx of laparoscopic gastric banding History of hysterectomy for cancer H/O umbilical hernia repair History of cholecystectomy H/O colonoscopy Social History Household Members: Spouse Housing: House Are you a primary point of care specialist to a significant other at home: No Do you presently have visiting nurse or other home services: No Alcohol intake: never Patient Tobacco Use Status: Former Tobacco user Tobacco use type: Cigarette Years Smoked: 25 Second Hand Smoke Exposure: No Advance Directives Date on File: 12/23/22 service: No Current occupational status: unemployed Review of Systems Const All systems reviewed & are unremarkable except as noted in HPI and below Eyes Reports no additional complaints ENT Reports no additional complaints Card Denies chest pain, Denies irregular heart rhythm and Denies leg edema Resp Reports as per HPI, Reports cough and Reports wheezing GI Reports as per HPI Reports no additional complaints Musc Reports no additional complaints Skin/Breast Reports system reviewed and no additional complaints, except as documented Neuro Reports no additional complaints Psych Reports no additional complaints Aller/Immun Reports wheezing Physical Exam Vital Signs: Last Vital Signs Pulse 97 09/13/25 13:25 Pulse Ox 97 09/13/25 13:25 Oxygen Delivery Method Room Air 09/13/25 13:25 BMI result Body Mass Index 53.8 She remains grossly obese with a round face Const General: comfortable, no acute distress, alert and awake Orientation/consciousness: patient oriented x3 HEENT Head: Yes normal to inspection General nose exam: No nasal polyps present and No nasal discharge present Face and sinus: Yes sinuses nontender Mouth: oropharynx abnormals (CROWDED, MALLAMPATI CLASS 4) Throat: Yes posterior oropharynx normal Eyes General: appearance normal, both eyes and all related structures Neck Neck: Yes normal visual inspection, Yes no lymphadenopathy, Yes trachea midline and Yes no JVD Thyroid: Thyroid normal Chest Chest palpation & inspection: normal inspection of the chest, normal palpation of entire chest wall and no tenderness Resp Other: PERCUSSION NOTE IS RESONANT, BREATH SOUNDS ARE DISTANT BUT EQUAL ON BOTH SIDES. DIMINISHED OVER THE BASILAR AREAS. NO WHEEZES OR CREPITATIONS ARE HEARD TODAY. Cardio Palpation: normal PMI Rate: regular rate Heart sounds: no gallops and no murmurs Peripheral pulses: Peripheral pulses 2+ throughout GI Palpation (GI): Soft to palpation, nontender, No hepatosplenomegaly present and no masses Auscultation: normal bowel sounds Back/Spine/Pelvis Thoracic/Lumbar Spine: thoracic and lumbar spine normal to inspection and thoraco-lumbar ROM limited Skin General skin exam: no rashes or lesions noted Neuro General: patient oriented x3, No gait normal (MILD IMPAIRMENT DUE TO LOW BACK STIFFNESS, USES CANE) and no focal motor deficits Cranial nerves: Yes CN's II-XII intact bilaterally Extrem General: Yes normal to inspection, Yes no clubbing, cyanosis or edema and Yes no calf tenderness Psych Appearance: grossly normal and well kempt Speech and movement: Normal speech and movement present Assessment & Plan Assessment & Plan (1) Bronchial asthma: Comment: SHE HAS MILD INTERMITTENT BRONCHIAL ASTHMA. NO EVIDENCE OF COPD MOST LIKELY SHE HAS SIGNIFICANT RESTRICTIVE PULMONARY DISORDERN DUE TO HER OBESITY AND ASSOCIATED CARDIAC PROBLEM. SHE IS ON AMIODARONE 200 MG DAILY, I WOULD LIKE TO MAKE SURE THAT THERE IS NO INTERSTITIAL LUNG DISEASE Code(s): J45.909 - Unspecified asthma, uncomplicated Category: Medical Plan: CONTINUE TO USE BREO 200-251 INHALATION DAILY. USE RESCUE INHALER Q 4-6 HOURS ONLY P.R.N.. I WILL REPLACE ALBUTEROL WITH LEVALBUTEROL- 45 BECAUSE OF CARDIAC ISSUES. USE WITH CAUTION 2 PUFFS Q 4-6 HOURS P.R.N. FOR ANY SINCE OF WHEEZING, CT SCAN OF THE CHEST IS ORDERED TO CHECK FOR ANY POSSIBLE INTERSTITIAL LUNG DISEASE . PATIENT ALSO GIVEN INCENTIVE SPIROMETRY DEVICE AND ADVISED TO DO DEEP BREATHING EXERCISES , 10 EFFORTS AT A TIME EVERY 2 HOURS. (2) JIMBO on CPAP: Comment: CASE OF OBSTRUCTIVE SLEEP APNEA SECONDARY TO MORBID OBESITY FOR MANY YEARS. TREATED WELL WITH USE OF CPAP. PATIENT IS WELL USED TO CPAP DEVICE , HAS BEEN VERY COMPLIANT AND BENEFITTING. NO ISSUES WITH THE MACHINE OR CPAP MASK. THE NEW CPAP MACHINE IS WORKING WELL. COULD NOT PRINT HER COMPLIANCE , BUT SHE IS USING VERY REGULARLY. Code(s): G47.33 - Obstructive sleep apnea (adult) (pediatric); Z99.89 - Dependence on other enabling machines and devices Category: Medical Plan: ADVISED TO CONTINUE USING THE CPAP AT LEAST FOR 6 HOURS EVERY NIGHT (3) Persistent atrial fibrillation: Comment: SHE HAS HAD PAROXYSMAL TO PERSISTENT ATRIAL FIBRILLATION. SHE IS ON AMIODARONE 200 MG DAILY ALONG WITH METOPROLOL 50 MG DAILY. Code(s): I48.19 - Other persistent atrial fibrillation Category: Medical Plan: CONTINUE CLOSE FOLLOW-UP WITH CARDIOLOGY Orders: Orders CT chest wo IV con Today J45.909 - Unspecified asthma, uncomplicated, J98.4 - Other disorders of lung Coding Level of Care Code Est Pt Level 4 (35610) Diagnoses Bronchial asthma J45.909 JIMBO on CPAP G47.33; Z99.89 Persistent atrial fibrillation I48.19
[2025-09-13 13:25] VITALS: PULSE 97; O2SAT 97; BMI 53.8
--- OUTSIDE RECORDS SUMMARY | 2025-09-13 16:50 | XMS_ITS | Encounter Summary ---
Author Organization [facility] Address [address] ([place], [place]) [address] [place] [address] Phone Care Team Providers Care Manager Of Case Name Role Phone Ang Bernstein MD Primary Care Provider [phone] Ang Bernstein MD Unavailable [phone] Encounter Details Date Type Department Care Team (Late st Contact Info) Description 01/04/2025 Procedure Pass [facility], [address] [address] Social History Tobacco Use Types Packs/Day Years [...] Description 11/01/2025 3:30 PM EST Office Visit [facility] Internal Medicine [address] [place], [place] [phone] Ang Bernstein MD [address] [place] [address] documented as of this encounter Visit Diagnoses Not on filedocumented in this encounter Additional Health Concerns Assessment Noted Time PHQ-9 Depression Total Score: 6 04/22/20 22 3:50 PM EDT PHQ-2 Depression Total Score: 2 07/21/20 24 6:18 PM EDT documented as of this encounter Care Teams Manager Of Case Relationship Specialty Start Date End Date Ang Bernstein MD [address] [place] [address] PCP - General 10/15/17 Ang Bernstein MD [address] [place] [address] Insurance Assigned Provider 02/20/24 documented as of this encounter Additional Source Comments The information contained in this document represents components of the legal health record. It is not the complete legal health record.[facility]
--- OUTSIDE RECORDS SUMMARY | 2025-09-13 16:50 | XMS_ITS | Encounter Summary ---
Author Organization [facility] Address [address] [facility] [address] [place] [address] Phone Care Team Providers Care Primary Mill Roller Name Role Phone Ang Bernstein MD Unavailable Renu Araujo MANAGER FEDERAL Unavailable Josi Quinonez MANAGER FEDERAL Unavailable [phone] Becka Brar MANAGER FEDERAL Unavailable [phone] Bryce Steve MD Unavailable [phone] Ang Bernstein MD Primary Care Provider Ang Bernstein MD Unavailable Ela Alarcon RN Unavailable Encounter Details Date Type Department Care Team (Late st Contact Info) Description 06/23/2019 [facility]illary [facility] [place] [address] [place] [address] Jelena Sow MD [address] [place] [address] [facility] [place], [place] [phone] [email or web address] Right ankle pain, unspecified chronicity [...] Description 11/01/2025 3:30 PM EST Office Visit [facility] Internal Medicine [address] [place], [place] [phone] Ang Bernstein MD [address] [place], [place] [phone] [email or web address] documented as of this encounter Results * [...] documented as of this encounter Care Teams Primary Mill Roller Relationship Specialty Start Date End Date Ang Bernstein MD [address] [place] [address] [email or web address] PCP - General 10/15/17 Ang Bernstein MD [address] [place] [address] Historical LMR Provider 09/05/17 09/13/19 Renu Araujo, MANAGER FEDERAL [address] [place] [address] [email or web address] Historical LMR Provider 09/05/1709/13 Josi Quinonez, [place] [address] [address] Historical LMR Provider 09/05/1709/13 Becka Brar NP [address] [address] Historical LMR Provider 09/05/17 09/13/19 [place] [address] Historical LMR Provider 09/05/17 Ang Bernstein MD [address] [place] [address] Insurance Assigned Provider 02/20/24 Ela Alarcon, RN [address] [place] [address] PHCM PlatemakerCrack Off Person 06/15/23 07/05/23 documented as of this encounter Additional Source Comments The information contained in this document represents components of the legal health record. It is not the complete legal health record.[facility]
--- OUTSIDE RECORDS SUMMARY | 2025-09-13 16:50 | XMS_ITS | Encounter Summary ---
Author Organization [facility] Address [address] [place] [address] Phone Care Team Providers Care Access Analyst Name Role Phone Ang Bernstein MD Primary Care Provider [phone] Ang Bernstein MD Unavailable [phone] Encounter Details Date Type Department Care Team (Late st Contact Info) Description 12/20/2024 Procedure Pass [facility], Ct Scan - [address] [address] Social History Tobacco Use Types Packs/Day Years [...] Description 11/01/2025 3:30 PM EST Office Visit [facility] Internal Medicine [address] [place], [place] [phone] Ang Bernstein MD [address] [place] [address] documented as of this encounter Visit Diagnoses Not on filedocumented in this encounter Additional Health Concerns Assessment Noted Time PHQ-9 Depression Total Score: 6 04/22/20 22 3:50 PM EDT PHQ-2 Depression Total Score: 2 07/21/20 24 6:18 PM EDT documented as of this encounter Care Teams Access Analyst Relationship Specialty Start Date End Date Ang Bernstein MD [address] [place] [address] PCP - General 10/15/17 Ang Bernstein MD [address] [place] [address] Insurance Assigned Provider 02/20/24 documented as of this encounter Additional Source Comments The information contained in this document represents components of the legal health record. It is not the complete legal health record.[facility]
--- OUTSIDE RECORDS SUMMARY | 2025-09-13 16:50 | XMS_ITS | Encounter Summary ---
Author Organization [facility] Address [address] [facility] [address] [place] [address] Phone Care Team Providers Care Audio Visual Arts Director Name Role Phone Ang Bernstein MD Unavailable [phone] Renu Araujo TRASH COLLECTOR Unavailable Josi Quinonez TRASH COLLECTOR Unavailable Becka Brar TRASH COLLECTOR Unavailable [phone] Bryce Steve MD Unavailable Ang Bernstein MD Primary Care Provider [phone] Ang Bernstein MD Unavailable [phone] Ela Alarcon RN Unavailable [phone] Encounter Details Date Type Department Care Team (Late st Contact Info) Description 06/23/2019 Ancillary Orders [facility] Orthopedics & Sports Medicine [address] [place] [address] Jelena Sow MD [address] [place] [address] Orthopedics & Sports Medicine, [place] [address] Social History Tobacco Use Types Packs/Day Years [...] Description 11/01/2025 3:30 PM EST Office Visit [facility] Internal Medicine [address] [place] [address] Ang Bernstein MD 40 [place] [address] [email or web address] documented as of this encounter Visit Diagnoses Not on filedocumented in this encounter Additional Health Concerns Infection Onset Date Last Indicated Resolved Time CoV-Presumed 06/13/2022 06/13/2022 07/04/2022 1:21 AM EDT Assessment Noted Time PHQ-2 Depression Total Score: 0 12/10/19 8:40 AM EST documented as of this encounter Care Teams Audio Visual Arts Director Relationship Specialty Start Date End Date Ang Bernstein MD [address] [place] [address] PCP - General 10/15/17 Ang Bernstein MD [address] [place] [address] Historical LMR Provider 09/05/17 09/13/19 Renu Araujo NP [address] [place] [address] [email or web address] Historical LMR Provider 09/05/1709/13 Josi Quinonez NP 21 [facility] 104 [place] [address] Historical LMR Provider 09/05/1709/13 Becka Brar NP 26 [facility] 6 [place] [address] Historical LMR Provider 09/05/17 09/13/19 [place] [address] Historical LMR Provider 09/05/17 Ang Bernstein MD 40 [place] [address] Insurance Assigned Provider 02/20/24 Ela Alarcon, RN [address] [place] [address] [email or web address] PHCM Wardrobe MistressNet Lead Architect 06/15/23 07/05/23 documented as of this encounter Additional Source Comments The information contained in this document represents components of the legal health record. It is not the complete legal health record.[facility]
--- OUTSIDE RECORDS SUMMARY | 2025-09-13 16:50 | XMS_ITS | Encounter Summary ---
Author Organization [facility] Address [address] [facility] [address] [place] [address] Phone Care Team Providers Care Laundry Agent Name Role Phone Ang Bernstein MD Primary Care Provider [phone] Ang Bernstein MD Unavailable [phone] Encounter Details Date Type Department Care Team (Late st Contact Info) Description 01/04/2025 Procedure Pass [facility], [address] [address] Social History Tobacco Use Types Packs/Day Years [...] Description 11/01/2025 3:30 PM EST Office Visit [facility] Internal Medicine 40 [place], [place] [phone] Ang Bernstein MD 40 [place] [address] documented as of this encounter Visit Diagnoses Not on filedocumented in this encounter Additional Health Concerns Assessment Noted Time PHQ-9 Depression Total Score: 6 04/22/20 22 3:50 PM EDT PHQ-2 Depression Total Score: 2 07/21/20 24 6:18 PM EDT documented as of this encounter Care Teams Laundry Agent Relationship Specialty Start Date End Date Ang Bernstein MD 40 [place] [address] PCP - General 10/15/17 Ang Bernstein MD 40 [place] [address] Insurance Assigned Provider 02/20/24 documented as of this encounter Additional Source Comments The information contained in this document represents components of the legal health record. It is not the complete legal health record.[facility]
--- OUTSIDE RECORDS SUMMARY | 2025-09-13 16:50 | XMS_ITS | Encounter Summary ---
Author Organization [facility] Address [address] [place] [address] Phone Care Team Providers Care Soft Crab Shedder Name Role Phone Ang Bernstein MD Primary Care Provider [phone] Ang Bernstein MD Unavailable [phone] Encounter Details Date Type Department Care Team (Late st Contact Info) Description 03/22/2025 Documentation [facility] Internal Medicine 40 [place], [place] [phone] Ang Bernstein MD 40 [place] [address] [email or web address] Social History Tobacco Use Types Packs/Day Years [...] Description 11/01/2025 3:30 PM EST Office Visit [facility] Internal Medicine [address] [place] [address] Ang Bernstein MD 40 [place] [address] [email or web address] documented as of this encounter Procedures Procedure [...] documented as of this encounter Care Teams Soft Crab Shedder Relationship Specialty Start Date End Date Ang Bernstein MD 40 [place] [address] [email or web address] PCP - General 10/15/17 Ang Bernstein MD 40 [place] [address] [email or web address] Insurance Assigned Provider 02/20/24 documented as of this encounter Additional Source Comments The information contained in this document represents components of the legal health record. It is not the complete legal health record.[facility]
--- OUTSIDE RECORDS SUMMARY | 2025-09-13 16:50 | XMS_ITS | Encounter Summary ---
Author Organization [facility] Address [address] [facility] [address] [place] [address] Phone Care Team Providers Care Kiln Remover Name Role Phone Ang Bernstein MD Primary Care Provider [phone] Ang Bernstein MD Unavailable [phone] Ela Alarcon RN Unavailable Encounter Details Date Type Department Care Team (Late st Contact Info) Description 03/25/2023 Telephone [employer] [facility] Internal Medicine [address] [place] [address] Barbara Barrientos RN [email or web address] Social History Tobacco Use Types Packs/Day [...] Description 11/01/2025 3:30 PM EST Office Visit [facility] Internal Medicine [address] [place], [place] [phone] Ang Bernstein MD 40 [place], [place] [phone] documented as of this encounter Visit Diagnoses Not on filedocumented in this encounter Additional Health Concerns Assessment Noted Time PHQ-9 Depression Total Score: 6 04/22/20 22 3:50 PM EDT PHQ-2 Depression Total Score: 2 04/22/20 22 3:50 PM EDT documented as of this encounter Care Teams Kiln Remover Relationship Specialty Start Date End Date Ang Bernstein MD 40 [place] [address] PCP - General 10/15/17 Ang Bernstein MD [address] [place], [place] [phone] Insurance Assigned Provider 02/20/24 Ela Alarcon, RN [address] [place] [id number] PHCM Health Care / Medical Job TitlesExperimental Physicist 06/15/23 07/05/23 documented as of this encounter Additional Source Comments The information contained in this document represents components of the legal health record. It is not the complete legal health record.[facility]
--- OUTSIDE RECORDS SUMMARY | 2025-09-13 16:51 | XMS_ITS | Clinical Summary ---
Author Organization [facility] Address [address] [facility] [address] [place] [address] Phone Care Team Providers Care Rehab/Pre Vocational Counselor Name Role Phone Ang Bernstein MD Primary Care Provider [phone] Ang Bernstein MD Unavailable [phone] Allergies Active Allergy Reactions Criticality Noted Date [...] into the lungs every morning. 2023 Active cholecalciferol (VITAMIN D3) 25 MCG [...] mg by mouth every morning. 2024 Active semaglutide (OZEMPIC) 1 mg/dose (4 mg/3 mL) subcutaneous injection penIndications:Type 2 diabetes mellitus without complication, without long-term current use of insulin,Class 3 severe obesity due to excess calories with serious comorbidity and body mass index (BMI) of 50.0 to 59.9 in adult INJECT 1 MG UNDER THE SKIN EVERY 7 DAYS 3 mL 2024 Active valsartan (DIOVAN) 320 MG tablet Take 160 mg by mouth every morning. 2023 Discontinued( Dose adjustment) OZEMPIC 1 mg/dose (4 mg/3 mL) subcutaneous injection penIndications:Type 2 diabetes mellitus without complication, without long-term current use of insulin,Class 3 severe obesity due to excess calories with serious comorbidity and body mass index (BMI) of 50.0 to 59.9 in adult INJECT 1 MG UNDER THE SKIN EVERY 7 DAYS 3 mL 11 09/01 Discontinued Active Problems Problem Noted Date Diagnosed Date Diabetes mellitus with microalbuminuria 03/27/20 25 Bronchitis 02/22/2025 Chest pain 02/22/2025 CHF [...] p.o. twice daily. Patient last saw her engagement executive back in September with no med changes. [...] a-fib 07/23/2022 Overview (02/22/2025): Recurred 2022 Dr. Celestine singhlted back to sinus rhythm 2022. History of [...] Encounters Date Type Department Care Team Description 09/01/2025 Telephone [facility] Internal Medicine [address] [facility] [place] [address] nAg Bernstein MD 09/01/2025 Telephone [facility] Internal Medicine [address] [facility] [place] [address] Ang Bernstein MD 09/01/2025 Refill [facility] Internal Medicine [address] [facility] [place] [address] Ang Bernstein MD Medication Refill 08/02/2025 11:00 AM EDT Office Visit [facility] Internal Medicine [address] [facility] [place] [address] Ang Bernstein MD Routine general medical examination at a health care facility (Primary Dx); Diabetes mellitus with microalbuminuria; Need for prophylactic vaccination and inoculation against influenza; Other depression; Essential hypertension; Obesity, morbid; Chronic diastolic HF (heart failure); Permanent atrial fibrillation; Asthma-COPD overlap syndrome; Vitamin D deficiency; Vitamin B12 deficiency 08/01/2025 Documentation [facility] Internal Medicine [address] [place] [address] Ang Bernstein MD 07/14/2025 Refill [facility] Internal Medicine [address] [place] [address] Ang Bernstein MD Medication Refill from Last 3 Months Immunizations Immunization Administration Dates Next Due COVID-19 (Pre) Moderna Vaccine, Bivalent 6mo+ 12/20/2022 COVID-19 (Pre) Moderna Vaccine, mRNA, PF 10/05/2021,02/09/2021,01/12/2021 INFLUENZA, SPLIT [...] Description 11/01/2025 3:30 PM EST Office Visit [facility] Internal Medicine 40 [place] [address] Ang Bernstein MD 40 [place] [address] [email or web address] Due Date Last Done Comments COLOGUARD 1999 FIT TEST 1999 FOBT 1999 SIGMOIDOSCOPY 1999 VIRTUAL COLONOSCOPY 1999 RSV VACCINE (1 - Risk 50-74 years 1-dose series) 2004 ZOSTER VACCINES (1 of 2) 2004 Adult Td,Tdap Booster 01/31/2020 01/30/2010 DIABETIC EYE [...] RESULT ENTRY ONLY (04/25/2025 4:38 PM EDT) Result [facility] Provider HEALTH MAINTENANCE Final Result * Outside TSH Level (03/27/2025) TSH - External 1.37 0.5 - 5 uIU/L EXTERNAL NON-INTERFACED REF LAB Result [facility] Provider MD LAB BLOOD ORDERABLES Za l Result Performing Organization Address [facility] de Phone Number EXTERNAL NON-INTERFACED REF LAB * Outside Potassium Level (03/27/2025) Pathologist [facility] Potassium level - External 4.5 3.4 - 5.0 mmol/L EXTERNAL NON-INTERFACED REF LAB Result [facility] Provider MD LAB BLOOD ORDERABLES Za l Result Performing Organization Address [facility] de Phone Number EXTERNAL NON-INTERFACED REF LAB * Outside HbA1c (03/27/2025) Pathologist [facility] Hemoglobin A1c - External 6.2 % EXTERNAL NON-INTERFACED REF LAB Result [facility] Provider MD LAB BLOOD ORDERABLES Za l Result Performing Organization Address [facility] de Phone Number EXTERNAL NON-INTERFACED REF LAB * (ABNORMAL) Outside Serum Creatinine Level (03/27/2025) Pathologist [facility] Creatinine, serum - External 0.65(A) 0.8 - 1.3 mg/dL EXTERNAL NON-INTERFACED REF LAB Result [facility] Provider MD LAB BLOOD ORDERABLES Za l Result Performing Organization Address [facility] de Phone Number EXTERNAL NON-INTERFACED REF LAB * Outside ALT Level (03/27/2025) ALT - External 12 5 - 30 U/L EXTE RNAL NON-INTERFACED REF LAB Result [facility] Provider MD LAB BLOOD ORDERABLES Za l Result Performing Organization Address City/[facility] de Phone Number EXTERNAL NON-INTERFACED REF LAB * HM DIABETES EYE EXAM FOR RESULT ENTRY ONLY (11/23/2023) Pathologist [facility] HM EYE EXAM normal Result [facility] Provider HEALTH MAINTENANCE Final Result * OUTSIDE BONE DENSITY SCREENING (02/07/2021) Pathologist [facility] BONE DENSITY SCREENING - EXTERNAL osteopenia Historical Provider HEALTH MAINTENANCE Final Result * Hepatitis C antibody, qualitative (10/28/2019 2:23 PM EST) [facility] HCV NON-REACTIV E NON-REACTI VE [facility] Blood 10/28/2019 2:23 PM EST 10/28/2019 2:26 PM EST Ang Brenstein MD LAB BLOOD ORDERABLES Final Re sult [facility] Organization Address City/State/ZIP Co de Phone Number [facility] [address] [place], [place] [id number] * COLONOSCOPY FOR RESULT ENTRY ONLY (08/28/2016) Pathologist [facility] Colonoscopy 10 yr recall Historical Provider HEALTH MAINTENANCE Edited Result - Final from Last 3 Months or Most Recently Relevant to Health Maintenance Insurance [employer] [facility] EXTENSION MEDICARE SUPPLEMENT MEDICARE PART A & B [employer] MEDICARE SUPPLEMENT MEDICARE PART A & B [employer] MEDICARE SUPPLEMENT MEDICARE PART A & B MEDICARE SUPPLEMENT MEDICARE PART A & B [employer] MEDICARE SUPPLEMENT MEDICARE PART A & B [employer] MEDICARE SUPPLEMENT MEDICARE PART A & [place] [address] [place] [address] EXTENSION MEDICARE SUPPLEMENT MEDICARE PART A & B [employer] MEDICARE SUPPLEMENT MEDICARE PART A & B [employer] MEDICARE SUPPLEMENT MEDICARE PART A & B Care Teams Rehab/Pre Vocational Counselor Relationship Specialty Start Date End Date Ang Bernstein MD [address] [place] [address] [email or web address] PCP - General 10/15/17 Ang Bernstein MD [address] [place] [address] [email or web address] Insurance Assigned Provider 02/20/24 Additional Source Comments The information contained in this document represents components of the legal health record. It is not the complete legal health record.[facility]
== END 2025-09-13 13:53 | disposition home or self-care (01) ==
LOC: HO.HPS 13:17
PROVIDERS: PCP Internal Medicine; Visit Provider Internal Medicine
DX: J45.909 Unspecified asthma, uncomplicated (principal); G47.33 Obstructive sleep apnea (adult) (pediatric); Z99.89 Dependence on other enabling machines and devices; I48.19 Other persistent atrial fibrillation
CPT/HCPCS: 99214

== ENCOUNTER → 2025-09-13 13:16 | Outpatient (BNVA) | payer MEDICARE, OTHER, SELFPAY | PROVIDERS: PCP Internal Medicine; Visit Provider Internal Medicine | DX: J45.909 Unspecified asthma, uncomplicated (principal); G47.33 Obstructive sleep apnea (adult) (pediatric); I48.19 Other persistent atrial fibrillation; Z99.89 Dependence on other enabling machines and devices; Z87.891 Personal history of nicotine dependence | CPT/HCPCS: 99212 ==

== ENCOUNTER 2025-09-15 13:06 | Outpatient (AMB) | payer MEDICARE, OTHER, SELFPAY ==
--- NOTE | 2025-09-15 13:09 | MHC.OFFVIS ---
Vital Signs 09/15/25 13:13 Height 5 ft 2 in Weight 294 lb 8.601 oz BMI 53.9 BP 120/64 Blood Pressure Location Rt radial Position Sitting Pulse 117 H Pulse Source Monitor Intake Visit Reasons: s/p cardioversion 08/31 Intake Note: s/p cardioversion 08/31 Patient Manager Required: No Accompanied by: Self / Same As Patient Allergies adhesive tape (ADHESIVE TAPE) Allergy (Intermediate, Verified 09/13/25 13:56) BLISTERS Medication List - Last Reconciled 09/15/25 by RANDALL Pate albuterol sulfate 90 mcg/actuation 2 puffs inhalation Q4-6H PRN 30 days amiodarone 200 mg PO DAILY apixaban (Eliquis) 5 mg PO BID cholecalciferol (vitamin D3) 25 mcg PO DAILY fluticasone furoate-vilanterol 200-25 mcg/dose (Breo Ellipta) 1 ea inhalation DAILY furosemide 40 mg PO DAILY mecobalamin (vitamin B12) 5,000 mcg PO DAILY metoprolol succinate ER 50 mg PO DAILY multivitamin 1 tab PO DAILY omega-3 fatty acids 1,250 mg PO DAILY omeprazole 20 mg PO DAILY@0630 paroxetine HCl 45 mg PO DAILY rosuvastatin 10 mg PO BEDTIME semaglutide (Ozempic) 4 mg subcut FR valsartan 320 mg PO DAILY HPI HPI s/p cardioversion 08/31: Details: Gabriela is a 70-year-old female with past medical history of morbid obesity, hypertension, sleep apnea with CPAP use, chronic diastolic heart failure, recurrent persistent atrial fibrillation who recently had failed cardioversion on amiodarone. She was referred to Dr. Barraza for electrophysiology and is being set up for AFib ablation. She now presents for follow-up. Today she reports that she has been experiencing fatigue and has chronic shortness of breath with activity. She feels the fatigue is increased in recent weeks. She does have some shortness of breath when she lays down, no coughing. She has sinus area congestion with postnasal drip. She did see her hot baller 2 days ago and was told her lungs were clear and that her breathing issue was related to allergies. She is compliant with her CPAP which she wears each night. She will feel occasional heart palpitations when she is walking or doing physical activity. She denies chest discomfort at rest or with activity. No lightheadedness, presyncope, syncope, falls. Ambulates with a walker or a cane outside of the home. No bleeding issues reported. [place] [facility] [place] and anticipates her AFib ablation to be 11/10/2025. [facility] Medical History Restrictive lung disease Bilateral cataracts History of cardioversion GERD (gastroesophageal reflux disease) Bronchitis Asthma exacerbation PAF (paroxysmal atrial fibrillation) MDD (major depressive disorder) HTN (hypertension) Post covid-19 condition, unspecified Morbid obesity JIMBO on CPAP Bronchial asthma Surgical History History of cardioversion Anal fistula Hx of laparoscopic gastric banding History of hysterectomy for cancer H/O umbilical hernia repair History of cholecystectomy H/O colonoscopy Social History Household Members: Spouse Housing: House Are you a primary day care provider to a significant other at home: No Do you presently have visiting nurse or other home services: No Alcohol intake: never Patient Tobacco Use Status: Former Tobacco user Tobacco use type: Cigarette Years Smoked: 25 Second Hand Smoke Exposure: No Advance Directives Date on File: 12/23/22 service: No Current occupational status: unemployed Review of Systems Const All systems reviewed & are unremarkable except as noted in HPI and below Denies chills, Reports fatigue, Denies fever(s), Denies frequent falls, Denies weakness, Denies weight gain and Denies weight loss ENT Denies dizziness Card Denies chest pain, Reports rapid heart rate, Denies leg edema, Denies lightheadedness, Denies palpitations, Reports dyspnea, Reports dyspnea on exertion and Reports orthopnea Resp Denies cough, Reports dyspnea and Reports dyspnea on exertion GI Denies hematochezia Musc Reports abnormal gait (using walker), Denies muscle weakness, Denies numbness, Denies radiating pain into limb and Denies tingling Neuro Reports abnormal gait (using walker), Denies dizziness, Denies frequent falls, Denies numbness, Denies tingling and Denies weakness Endo Reports fatigue and Denies palpitations Physical Exam Vital Signs: Last Vital Signs Pulse 117 H 09/15/25 13:13 BP 120/64 09/15/25 13:13 BMI result Body Mass Index 53.9 Const General: cooperative, healthy appearing, comfortable and no acute distress Orientation/consciousness: patient oriented x3 Neck Neck: Yes normal visual inspection Resp Effort & Inspection: normal respiratory effort Auscultation: clear to auscultation bilaterally, no rales, no rhonchi and no wheezes Cardio Rate: tachycardic Rhythm: abnormal rhythm Heart sounds: S1 normal heart sound present, S2 normal heart sound present, no murmurs and no rubs Neuro General: patient oriented x3 Extrem General: Yes normal to inspection and No no pedal edema Psych Appearance: grossly normal Mental Status: mental status grossly normal Speech and movement: Normal speech and movement present Office Procedures EKG Details: Today, read by me, atrial fibrillation with RVR, septal Q-wave, rate 117 [id number], Complete Assessment & Plan Assessment & Plan (1) Atrial fibrillation with rapid ventricular response: Code(s): I48.91 - Unspecified atrial fibrillation Category: Medical Plan: Recent persistent atrial fibrillation, on amiodarone with failed cardioversion 08/31/2025. She was seen by Dr. Barraza on 09/05/2025 and AFib ablation is scheduled for 11/10/2025 according to her. EKG today showing AFib with RVR, rate 117. Later in the visit pulse check using sat monitor showed pulse in the 90s. She uses a smart watch which frequently tells her her heart rate is 80-110. Last echo 07/13/2025 showed EF 51%, moderate mitral annular calcification, mild MR, left atrium severely dilated. Will increase metoprolol XL up to 75 mg daily. Continue amiodarone. Will check labs for amiodarone monitoring including liver panel and TSH. Continue Eliquis for anticoagulation. Cardiology follow-up 4-6 weeks, sooner if needed to reassess AFib rate and for Congestive heart failure. (2) Chronic diastolic heart failure: Code(s): I50.32 - Chronic diastolic (congestive) heart failure Category: Medical Plan: History of chronic diastolic heart failure. Currently with NYHA class 2 symptoms. She does not appear fluid overloaded on exam. Continue Lasix 40 mg daily. Informed her she can take an additional dose of Lasix if she does notice leg edema, increased shortness of breath, weight gain over 3 lb. Signs and symptoms of heart failure reviewed with her. (3) CHRISTIANSEN (dyspnea on exertion): Code(s): R06.09 - Other forms of dyspnea Category: Medical Plan: As above (4) HTN (hypertension): Code(s): I10 - Essential (primary) hypertension Category: Medical Plan: Blood pressure goal less than 130/80. Well controlled at present. Metoprolol dose being increased. Continue valsartan, Lasix. Plan We discussed the management of atrial fibrillation, including the use of amiodarone and metoprolol, and the upcoming ablation procedure scheduled for November 10. I advised the patient to monitor for symptoms of fluid overload and adjust diuretic use as necessary. We also discussed the management of allergic rhinitis with Zyrtec and breathing exercises as was directed by Dr Aldridge. A follow-up appointment is planned in four to six weeks to reassess the patient's condition. Medications: Changed From metoprolol succinate ER 50 mg PO DAILY 90 tabs 3RF To metoprolol succinate ER 75 mg (1.5 x 50 mg) PO DAILY 135 tabs 3RF 90 days Patient Instructions: - Continue taking amiodarone, metoprolol and Eliquis as prescribed. - Monitor heart rate and symptoms; report any significant changes. - Use CPAP machine regularly and keep it clean. - Take Zyrtec daily for allergy management. - Monitor for signs of fluid overload and adjust diuretic use if necessary. - Follow up in four to six weeks or sooner if symptoms worsen. Patient was informed and verbally consented to the use of an ambient scribe for clinic note documentation during this visit. Visit time spent on chart review, interview, assessment, orders, documentation. Coding Level of Care Code Est Pt Level 4 (85563) Complex EM visit Add On G2211 Diagnoses Atrial fibrillation with rapid ventricular response I48.91 Chronic diastolic heart failure I50.32 CHRISTIANSEN (dyspnea on exertion) R06.09 HTN (hypertension) I10 CPT Codes EKG - CPT: [id number], Complete ([id number]) Time Spent (min) 32
[2025-09-15 13:13] VITALS: BP 120/64; PULSE 117; BMI 53.9
--- OUTSIDE RECORDS SUMMARY | 2025-09-15 14:13 | XMS_ITS | Clinical Summary ---
Author Organization [facility] Address [address] [facility] [address] [place] [address] Phone Care Team Providers Care Medical Records Director Name Role Phone Ang Bernstein MD Primary Care Provider [phone] Ang Bernstein MD Unavailable [phone] Allergies Active Allergy Reactions Criticality Noted [...] p.o. twice daily. Patient last saw her wardrobe coordinator back in September with no med changes. [...] Type Department Care Team Description 09/01/2025 Telephone [facility] Internal Medicine [address] [facility] [place] [address] Ang eBrnstein MD 09/01/2025 Telephone [facility] Internal Medicine [address] [facility] [place] [address] Ang Bernstein MD 09/01/2025 Refill [facility] Internal Medicine [address] [facility] [place] [address] Ang Bernstein MD Medication Refill 08/02/2025 11:00 AM EDT Office Visit [facility] Internal Medicine [address] [facility] [place] [address] Ang Bernstein MD Routine general medical examination at a health care facility (Primary Dx); Diabetes mellitus with microalbuminuria; Need for prophylactic vaccination and inoculation against influenza; Other depression; Essential hypertension; Obesity, morbid; Chronic diastolic HF (heart failure); Permanent atrial fibrillation; Asthma-COPD overlap syndrome; Vitamin D deficiency; Vitamin B12 deficiency 08/01/2025 Documentation [facility] Internal Medicine [address] [place] [address] Ang Bernstein MD 07/14/2025 Refill [facility] Internal Medicine [address] [place] [address] Ang Bernstein MD Medication Refill from Last [...] 11/01/2025 3:30 PM EST Office Visit [facility] [place] Internal Medicine [address] [facility] [place] [address] Ang Bernstein MD 40 [place] [address] [email or web address] Due Date Last Done Comments [...] ENTRY ONLY (04/25/2025 4:38 PM EDT) Result [facility] Provider HEALTH MAINTENANCE Final Result * Outside TSH Level (03/27/2025) TSH - External 1.37 0.5 - 5 uIU/L EXTERNAL NON-INTERFACED REF LAB Result [facility] Provider MD LAB BLOOD ORDERABLES Za l Result Performing Organization Address [facility] de Phone Number EXTERNAL NON-INTERFACED REF LAB * Outside Potassium Level (03/27/2025) Pathologist [facility] Potassium level - External 4.5 3.4 - 5.0 mmol/L EXTERNAL NON-INTERFACED REF LAB Result [facility] Provider MD LAB BLOOD ORDERABLES Za l Result Performing Organization Address [facility] de Phone Number EXTERNAL NON-INTERFACED REF LAB * Outside HbA1c (03/27/2025) Pathologist [facility] Hemoglobin A1c - External 6.2 % EXTERNAL NON-INTERFACED REF LAB Result [facility] Provider MD LAB BLOOD ORDERABLES Za l Result Performing Organization Address [facility] de Phone Number EXTERNAL NON-INTERFACED REF LAB * (ABNORMAL) Outside Serum Creatinine Level (03/27/2025) Pathologist [facility] Creatinine, serum - External 0.65(A) 0.8 - 1.3 mg/dL EXTERNAL NON-INTERFACED REF LAB Result [facility] Provider MD LAB BLOOD ORDERABLES Za l Result Performing Organization Address [facility] de Phone Number EXTERNAL NON-INTERFACED REF LAB * Outside ALT Level (03/27/2025) ALT - External 12 5 - 30 U/L EXTE RNAL NON-INTERFACED REF LAB Result [facility] Provider MD LAB BLOOD ORDERABLES Za l Result Performing Organization Address [facility] de Phone Number EXTERNAL NON-INTERFACED REF LAB * HM DIABETES EYE EXAM FOR RESULT ENTRY ONLY (11/23/2023) Pathologist [facility] HM EYE EXAM normal Result [facility] Provider HEALTH MAINTENANCE Final Result * OUTSIDE BONE DENSITY SCREENING (02/07/2021) Pathologist [facility] BONE DENSITY SCREENING - EXTERNAL osteopenia Historical Provider HEALTH MAINTENANCE Final Result * Hepatitis C antibody, qualitative (10/28/2019 2:23 PM EST) [facility] HCV NON-REACTIV E NON-REACTI VE [facility] Blood 10/28/2019 2:23 PM EST 10/28/2019 2:26 PM EST Ang Bernstein MD LAB BLOOD ORDERABLES Final Re sult [facility] Organization Address City/State/ZIP Co de Phone Number [facility] [address] [place], [place] [phone] * COLONOSCOPY FOR RESULT ENTRY ONLY (08/28/2016) Pathologist [facility] Colonoscopy 10 yr recall Historical Provider HEALTH MAINTENANCE Edited Result - Final from Last 3 Months or Most Recently Relevant to Health Maintenance Insurance [employer] [facility] EXTENSION MEDICARE SUPPLEMENT MEDICARE PART A & B [place] EXTENSION MEDICARE SUPPLEMENT MEDICARE PART A & B [place] EXTENSION MEDICARE SUPPLEMENT MEDICARE PART A & B MEDICARE SUPPLEMENT MEDICARE PART A & B [place] EXTENSION MEDICARE SUPPLEMENT MEDICARE PART A & B [place] EXTENSION MEDICARE SUPPLEMENT MEDICARE PART A & [place] [address] [place] [address] EXTENSION MEDICARE SUPPLEMENT MEDICARE PART A & B [place] MEDICARE SUPPLEMENT MEDICARE PART A & B [place] EXTENSION MEDICARE SUPPLEMENT MEDICARE PART A & B Care Teams Medical Records Director Relationship Specialty Start Date End Date Ang Bernstein MD [address] [place] [address] [email or web address] PCP - General 10/15/17 Ang Bernstein MD [address] [place] [address] [email or web address] Insurance Assigned Provider 02/20/24 Additional Source Comments The information contained in this document represents components of the legal health record. It is not the complete legal health record.[facility]
--- OUTSIDE RECORDS SUMMARY | 2025-09-15 14:13 | XMS_ITS | Encounter Summary ---
Author Organization [facility] Address [address] [facility] [address] [place] [address] Phone Care Team Providers Care Fishing Vessel Captain Name Role Phone Ang Bernstein MD Unavailable Renu Araujo SWING TYPE LATHE OPERATOR Unavailable Josi Quinonez SWING TYPE LATHE OPERATOR Unavailable Becka Brar SWING TYPE LATHE OPERATOR Unavailable [phone] Bryce Steve MD Unavailable Ang Bernstein MD Primary Care Provider Ang Bernstein MD Unavailable Ela Alarcon RN Unavailable [phone] Encounter Details Date Type Department Care Team (Late st Contact Info) Description 06/23/2019 [facility] [place] [address] [place] [address] Jelena Sow MD [address] [place] [address] [facility] [place], [place] [phone] [email or web address] Right ankle pain, unspecified chronicity [...] PM EST Office Visit [facility] Internal Medicine 40 [place], [place] [phone] Ang Bernstein MD 40 [place], [place] [phone] [email or web address] documented as of [...] documented as of this encounter Care Teams Fishing Vessel Captain Relationship Specialty Start Date End Date Ang Bernstein MD 40 [place] [address] [email or web address] PCP - General 10/15/17 Ang Bernstein MD 40 [place] [address] Historical LMR Provider 09/05/17 09/13/19 Renu Araujo, SWING TYPE LATHE OPERATOR 21 [place] [address] [email or web address] Historical LMR Provider 09/05/1709/13 Josi Quinonez, [place] [address] [address] Historical LMR Provider 09/05/1709/13 Becka Brar NP [address] [address] Historical LMR Provider 09/05/17 09/13/19 [place] [address] Historical LMR Provider 09/05/17 Ang Bernstein MD 40 [place] [address] Insurance Assigned Provider 02/20/24 Ela Alarcon, RN [address] [place] [address] PHCM FarmhandFlight Attendant/Inflight Manager 06/15/23 07/05/23 documented as of this encounter Additional Source Comments The information contained in this document represents components of the legal health record. It is not the complete legal health record.[facility]
--- OUTSIDE RECORDS SUMMARY | 2025-09-15 14:13 | XMS_ITS | Encounter Summary ---
Author Organization [facility] Address [address] [employer] [facility] [address] [place] [address] Phone Care Team Providers Care Shop Cooper Name Role Phone Ang Bernstein MD Primary Care Provider [phone] Ang Bernstein MD Unavailable [phone] Encounter Details Date Type Department Care Team (Late st Contact Info) Description 01/04/2025 Procedure Pass [facility], [address] [address] Social History Tobacco Use Types Packs/Day Years [...] Description 11/01/2025 3:30 PM EST Office Visit [facility] Internal Medicine 40 [place], [place] [phone] Ang Bernstein MD 40 [place] [address] documented as of this encounter Visit Diagnoses Not on filedocumented in this encounter Additional Health Concerns Assessment Noted Time PHQ-9 Depression Total Score: 6 04/22/20 22 3:50 PM EDT PHQ-2 Depression Total Score: 2 07/21/20 24 6:18 PM EDT documented as of this encounter Care Teams Shop Cooper Relationship Specialty Start Date End Date Ang Bernstein MD 40 [place] [address] PCP - General 10/15/17 Ang Bernstein MD [address] [place] [address] Insurance Assigned Provider 02/20/24 documented as of this encounter Additional Source Comments The information contained in this document represents components of the legal health record. It is not the complete legal health record.[facility]
--- OUTSIDE RECORDS SUMMARY | 2025-09-15 14:13 | XMS_ITS | Encounter Summary ---
Author Organization [facility] Address [address] [facility] [address] [place] [address] Phone Care Team Providers Care Fiber Glass Worker Name Role Phone Ang Bernstein MD Unavailable [phone] Renu Araujo WELDING ROD COATER Unavailable Josi Quinonez WELDING ROD COATER Unavailable Becka Brar WELDING ROD COATER Unavailable [phone] Bryce Steve MD Unavailable Ang Bernstein MD Primary Care Provider [phone] Ang Bernstein MD Unavailable Ela Alarcon RN Unavailable [phone] Encounter Details Date Type Department Care Team (Late st Contact Info) Description 06/23/2019 Ancillary Orders [facility] [address] [place] [address] Jelena Sow MD [address] [place] [address] [facility], [place] [address] Social History Tobacco Use Types Packs/Day Years [...] Description 11/01/2025 3:30 PM EST Office Visit [facility] Internal Medicine 40 [place] [address] Ang Bernstein MD 40 [place] [address] [email or web address] documented as of this encounter Visit Diagnoses Not on filedocumented in this encounter Additional Health Concerns Infection Onset Date Last Indicated Resolved Time CoV-Presumed 06/13/2022 06/13/2022 07/04/2022 1:21 AM EDT Assessment Noted Time PHQ-2 Depression Total Score: 0 12/10/19 8:40 AM EST documented as of this encounter Care Teams Fiber Glass Worker Relationship Specialty Start Date End Date Ang Bernstein MD 40 [place] [address] PCP - General 10/15/17 Ang Bernstein MD [address] [place] [address] Historical LMR Provider 09/05/17 09/13/19 Renu Araujo NP [address] [place] [address] [email or web address] Historical LMR Provider 09/05/1709/13 Josi Quinonez NP 21 [facility] [address] [place] [address] Historical LMR Provider 09/05/1709/13 Becka Brar NP 26 [facility] 6 [place] [address] Historical LMR Provider 09/05/17 09/13/19 [place] [address] Historical LMR Provider 09/05/17 Ang Bernstein MD [address] [place] [address] Insurance Assigned Provider 02/20/24 Ela Alarcon, RN [address] [place] [address] [email or web address] PHCM Cv/Cvn Cv Tsc System OperatorManager Athletics 06/15/23 07/05/23 documented as of this encounter Additional Source Comments The information contained in this document represents components of the legal health record. It is not the complete legal health record.[facility]
--- OUTSIDE RECORDS SUMMARY | 2025-09-15 14:13 | XMS_ITS | Encounter Summary ---
Author Organization [facility] Address [address] [place] [address] Phone Care Team Providers Care Supervisor Insecticide Name Role Phone Ang Bernstein MD Primary Care Provider [phone] Ang Bernstein MD Unavailable [phone] Encounter Details Date Type Department Care Team (Late st Contact Info) Description 03/22/2025 Documentation [facility] Internal Medicine 40 [place], [place] [phone] Ang Bernstein MD 40 [place] [address] [email or web address] Social History Tobacco Use Types Packs/Day Years [...] Visit [facility] Internal Medicine [address] [place] [address] Ang Bernstein MD 40 [place] [address] [email or web address] documented as of this encounter Procedures Procedure [...] as of this encounter Care Teams Supervisor Insecticide Relationship Specialty Start Date End Date Ang Bernstein MD 40 [place] [address] [email or web address] PCP - General 10/15/17 Ang Bernstein MD 40 [place] [address] [email or web address] Insurance Assigned Provider 02/20/24 documented as of this encounter Additional Source Comments The information contained in this document represents components of the legal health record. It is not the complete legal health record.[facility]
--- OUTSIDE RECORDS SUMMARY | 2025-09-15 14:13 | XMS_ITS | Encounter Summary ---
Author Organization [facility] Address [address] [employer] [facility] [address] [place] [address] Phone Care Team Providers Care Electromechanical Equipment Assembler Name Role Phone Ang Bernstein MD Primary Care Provider [phone] Ang Bernstein MD Unavailable [phone] Encounter Details Date Type Department Care Team (Late st Contact Info) Description 01/04/2025 Procedure Pass [facility], [address] [address] Social History Tobacco Use Types Packs/Day Years [...] Visit [facility] Internal Medicine 40 [place], [place] [phone] Ang Bernstein MD 40 [place] [address] documented as of this encounter Visit Diagnoses Not on filedocumented in this encounter Additional Health Concerns Assessment Noted Time PHQ-9 Depression Total Score: 6 04/22/20 22 3:50 PM EDT PHQ-2 Depression Total Score: 2 07/21/20 24 6:18 PM EDT documented as of this encounter Care Teams Electromechanical Equipment Assembler Relationship Specialty Start Date End Date Ang Bernstein MD 40 [place] [address] PCP - General 10/15/17 Ang Bernstein MD 40 [place] [address] Insurance Assigned Provider 02/20/24 documented as of this encounter Additional Source Comments The information contained in this document represents components of the legal health record. It is not the complete legal health record.[facility]
--- OUTSIDE RECORDS SUMMARY | 2025-09-15 14:13 | XMS_ITS | Encounter Summary ---
Author Organization [facility] Address [address] [facility] [address] [place] [address] Phone Care Team Providers Care Supervisor Bottle House Cleaners Name Role Phone Ang Bernstein MD Primary Care Provider [phone] Ang Bernstein MD Unavailable [phone] Ela Alarcon RN Unavailable [phone] Encounter Details Date Type Department Care Team (Late st Contact Info) Description 03/25/2023 Telephone [employer] [facility] [place] Internal Medicine 40 [place] [address] Barbara Barrientos RN [email or web address] Social History Tobacco Use Types Packs/Day [...] Description 11/01/2025 3:30 PM EST Office Visit [facility] Internal Medicine 40 [place], [place] [phone] Ang Bernstein MD 40 [place], [place] [phone] documented as of this encounter Visit Diagnoses Not on filedocumented in this encounter Additional Health Concerns Assessment Noted Time PHQ-9 Depression Total Score: 6 04/22/20 22 3:50 PM EDT PHQ-2 Depression Total Score: 2 04/22/20 22 3:50 PM EDT documented as of this encounter Care Teams Supervisor Bottle House Cleaners Relationship Specialty Start Date End Date Ang Bernstein MD 40 [place] [address] PCP - General 10/15/17 Ang Bernstein MD [address] [place], [place] [phone] Insurance Assigned Provider 02/20/24 Ela Alarcon, RN [address] [place] [phone] PHCM Air Traffic CoordinatorSecurities Trader 06/15/23 07/05/23 documented as of this encounter Additional Source Comments The information contained in this document represents components of the legal health record. It is not the complete legal health record.[facility]
--- OUTSIDE RECORDS SUMMARY | 2025-09-15 14:13 | XMS_ITS | Encounter Summary ---
Author Organization [facility] Address [address] [place] [address] Phone Care Team Providers Care Globe Tester Name Role Phone Ang Bernstein MD Primary Care Provider [phone] Ang Bernstein MD Unavailable [phone] Encounter Details Date Type Department Care Team (Late st Contact Info) Description 12/20/2024 Procedure Pass [facility] - [address] [address] Social History Tobacco Use Types Packs/Day Years [...] Description 11/01/2025 3:30 PM EST Office Visit [facility] Internal Medicine 40 [place], [place] [phone] Ang Bernstein MD 40 [place] [address] documented as of this encounter Visit Diagnoses Not on filedocumented in this encounter Additional Health Concerns Assessment Noted Time PHQ-9 Depression Total Score: 6 04/22/20 22 3:50 PM EDT PHQ-2 Depression Total Score: 2 07/21/20 24 6:18 PM EDT documented as of this encounter Care Teams Globe Tester Relationship Specialty Start Date End Date Ang Bernstein MD 40 [place] [address] PCP - General 10/15/17 Ang Bernstein MD [address] [place] [address] Insurance Assigned Provider 02/20/24 documented as of this encounter Additional Source Comments The information contained in this document represents components of the legal health record. It is not the complete legal health record.[facility]
== END 2025-09-15 13:48 | disposition home or self-care (01) ==
LOC: HO.HCS 13:07
PROVIDERS: PCP Internal Medicine; Visit Provider Nurse Practitioner Family
DX: I48.91 Unspecified atrial fibrillation (principal); I50.32 Chronic diastolic (congestive) heart failure; R06.09 Other forms of dyspnea; I10 Essential (primary) hypertension
CPT/HCPCS: 93010; 99214; G2211

== ENCOUNTER → 2025-09-15 13:06 | Outpatient (BNVA) | payer MEDICARE, OTHER, SELFPAY | PROVIDERS: PCP Internal Medicine; Visit Provider Nurse Practitioner Family | DX: I48.19 Other persistent atrial fibrillation (principal); I50.32 Chronic diastolic (congestive) heart failure; R06.09 Other forms of dyspnea; R53.83 Other fatigue; J30.2 Other seasonal allergic rhinitis; Z87.891 Personal history of nicotine dependence; Z79.01 Long term (current) use of anticoagulants; G47.33 Obstructive sleep apnea (adult) (pediatric); Z99.89 Dependence on other enabling machines and devices; E66.01 Morbid (severe) obesity due to excess calories; Z68.43 Body mass index [BMI] 50.0-59.9, adult; I11.0 Hypertensive heart disease with heart failure | CPT/HCPCS: 93005; 99212 ==

== ENCOUNTER 2025-10-09 09:32 | Outpatient (REF) | payer MEDICARE, OTHER, SELFPAY ==
--- NOTE | ~2025-10-09 | CT_ITS ---
EXAMINATION: CT CHEST WITHOUT IV CONTRAST INDICATION: J98.4 - Other disorders of lung COMPARISON: Comparison is made with the prior examination dated 07/23/2022. TECHNIQUE: Helical CT scan of the chest was performed without intravenous contrast. Coronal and sagittal reformatted images were generated and reviewed. This CT exam was performed with one or more of the following dose reduction techniques: automated exposure control, adjustment of the mA and/or kV according to patient size, use of iterative reconstruction technique. DLP: 341 mGy-cm CHEST: THYROID: The thyroid is unremarkable. LUNGS: The previously seen 5 mm right upper lobe nodule (series 8, image 46) is partially obscured by a right pleural effusion.] Subsegmental atelectasis on the right. The left lung is clear. MEDIASTINUM: There is no mediastinal lymphadenopathy. CAIO: Evaluation of the hilar regions is limited by lack of intravenous contrast material. CARDIOVASCULATURE: The heart is markedly enlarged. There is no pericardial effusion. The thoracic aorta is normal in caliber. DEGREE OF CORONARY CALCIFICATION: none PLEURA: There is a small right pleural effusion. No pneumothorax. MAIN AIRWAYS: The mainstem bronchi and proximal branches are patent. AXILLA: There is no axillary lymphadenopathy. BONES AND SOFT TISSUES: There is degenerative disc disease of the spine. UPPER ABDOMEN: The visualized portions of the liver, spleen, and adrenals have an unremarkable unenhanced appearance. The patient is status post cholecystectomy and laparoscopic gastric band placement. CT/CT chest wo IV con IMPRESSION: Marked cardiomegaly. Small right pleural effusion. The previously seen 5 mm right upper lobe nodule is partially obscured by the pleural effusion. Electronically signed by: Jairo Escobedo MD 10/09/2025 10:30 AM [facility]
--- OUTSIDE RECORDS SUMMARY | 2025-10-09 10:59 | XMS_ITS | Encounter Summary ---
Author Organization [facility] Address [address] [facility] [address] [place] [address] Phone Care Team Providers Care Engineer Sergeant Name Role Phone Ang Bernstein MD Unavailable [phone] Renu Araujo RESIDENT INTERN Unavailable Josi Quinonez RESIDENT INTERN Unavailable Becka Brar RESIDENT INTERN Unavailable [phone] Bryce Steve MD Unavailable [phone] Ang Bernstein MD Primary Care Provider Ang Bernstein MD Unavailable Ela Alarcon RN Unavailable [phone] Encounter Details Date Type Department Care Team (Late st Contact Info) Description 06/23/2019 Ancillary Orders [facility] [place] 40 [place] [address] Jelena Sow MD [address] [place] [address] [facility] [place], [place] [phone] [email or web address] Right ankle pain, unspecified chronicity [...] Description 11/01/2025 3:30 PM EST Office Visit [facility] Internal Medicine 40 [place] [address] Ang Bernstein MD 40 [place] [address] [email or web address] documented as of this encounter Results * XR ANKLE 3 OR MORE VIEWS (RIGHT) (06/23/2019 12:20 PM EDT) Narrative SYSTEMGENERATED, DOCUMENTATION - 06/23/2019 12:21 PM EDT This image report has been auto-finalized and has not been read by a Radiologist. Interpretation has been included in the provider encounter note for this date of service. Jelena oSw MD IMG XR LOWER EXTREMITY Fi nal [...] documented as of this encounter Care Teams Engineer Sergeant Relationship Specialty Start Date End Date Ang Bernstein MD 40 [place] [address] [email or web address] PCP - General 10/15/17 Ang Bernstein MD 40 [place] [address] Historical LMR Provider 09/05/17 09/13/19 Renu Araujo, RESIDENT INTERN [address] [place] [address] [email or web address] Historical LMR Provider 09/05/1709/13 Josi Quinonez, [place] [address] [place] [address] Historical LMR Provider 09/05/1709/13 Becka Brar NP [address] [address] Historical LMR Provider 09/05/17 09/13/19 [place] [address] Historical LMR Provider 09/05/17 Ang Bernstein MD 40 [place] [address] Insurance Assigned Provider 02/20/24 Ela Alarcon, RN [address] [place] [address] PHC Dermatology Sales RepresentativeKinder Teacher 06/15/23 07/05/23 documented as of this encounter Additional Source Comments The information contained in this document represents components of the legal health record. It is not the complete legal health record.[facility]
--- OUTSIDE RECORDS SUMMARY | 2025-10-09 10:59 | XMS_ITS | Clinical Summary ---
Author Organization [facility] Address [address] [facility] [address] [place] [address] Phone Care Team Providers Care Mechanical Engineering Officer Name Role Phone Ang Bernstein MD Primary Care Provider [phone] Ang Bernstein MD Unavailable [phone] Allergies Active Allergy Reactions Criticality Noted Date [...] by mouth every day 90 tablet 3 Active BREO ELLIPTA 200-25 mcg/dose inhaler Inhale 1 puff into the lungs every morning. 024 Active cholecalciferol (VITAMIN D3) 25 MCG (1,000 unit) tablet Take 2,000 Units by mouth every morning. Active nystatin (NYSTOP) powderIndications:Inter patrice APPLY TO AFFECTED AREA TWICE A DAY 60 g 3 025 Active omeprazole (PRILOSEC) 20 MG capsuleIndications:Andres roesophageal reflux disease without esophagitis TAKE 1 CAPSULE BY MOUTH EVERY DAY 90 capsule 3 025 Active PARoxetine (PAXIL) 30 MG tabletIndications:Anxie ty state,Depression, unspecified depression type Take 1.5 tablets (45 mg total) by mouth every morning. 135 tablet 3 025 Active valsartan (DIOVAN) 320 MG tabletIndications:Essen tial hypertension TAKE 1 TABLET BY MOUTH EVERY DAY 90 tablet 3 025 Active metoprolol succinate (TOPROL-XL) 50 MG 24 hr tablet Take 50 mg by mouth every morning. 025 Active clobetasol (TEMOVATE) 0.05 % cream Apply 1 Application topically as needed. On arms and hands 025 Active amiodarone (PACERONE) 200 MG tablet Take 200 mg by mouth every morning. 025 Active semaglutide (OZEMPIC) 1 mg/dose (4 mg/3 mL) subcutaneous injection penIndications:Type 2 diabetes mellitus without complication, without long-term current use of insulin,Class 3 severe obesity due to excess calories with serious comorbidity and body mass index (BMI) of 50.0 to 59.9 in adult INJECT 1 MG UNDER THE SKIN EVERY 7 DAYS 3 mL 025 Active valsartan (DIOVAN) 320 MG tablet Take 160 mg by mouth every morning. 024 Disconti nued(Dos e adjustme nt) Active Problems Problem Noted Date Diagnosed Date Diabetes mellitus with microalbuminuria 03/27/20 25 Bronchitis 02/22/2025 Chest pain 02/22/2025 CHF (congestive heart failure) 02/22/2025 COVID-19 02/22/2025 CHRISTIANSEN (dyspnea on exertion) 02/22/2025 Elevated TSH 02/22/2025 Gastroenteritis 02/22/2025 MDD (major depressive disorder) 02/22/2025 JIMBO on CPAP 02/22/2025 Post covid-19 condition, unspecified 02/22/2025 Asthma exacerbation 02/22/2025 Bronchial [...] p.o. twice daily. Patient last saw her project eng back in September with no med changes. [...] Encounters Date Type Department Care Team Description 10/09/2025 Orders Only [facility] Internal Medicine [address] [facility], [place] [address] ProviderAngelic MD 09/01/2025 Telephone [facility] [address] [facility] [place] [address] Ang Bernstein MD 09/01/2025 Telephone [facility] [address] [facility], [place] [address] Ang Bernstein MD 09/01/2025 Refill [facility] [address] [facility], [place] [address] Ang Bernstein MD Medication Refill 08/02/2025 11:00 AM EDT Office Visit [facility] [address] [facility], [place] [address] Ang Bernstein MD Routine general medical examination at a health care facility (Primary Dx); Diabetes mellitus with microalbuminuria; Need for prophylactic vaccination and inoculation against influenza; Other depression; Essential hypertension; Obesity, morbid; Chronic diastolic HF (heart failure); Permanent atrial fibrillation; Asthma-COPD overlap syndrome; Vitamin D deficiency; Vitamin B12 deficiency 08/01/2025 Documentation [facility] [address] [facility], [place] [address] Ang Bernstein MD 07/14/2025 Refill [facility] [address] [facility] [place] [address] Ang Bernstein MD Medication Refill from Last 3 Months Immunizations Immunization Administration Dates Next Due COVID-19 (Pre-09/07) Moderna Vaccine, Bivalent 6mo+ 12/20/2022 COVID-19 (Pre) [...] Description 11/01/2025 3:30 PM EST Office Visit [facility] [address] [facility] [place] [address] Ang Bernstein MD [address] [place] [address] [email or web address] Health Maintenance Due Date Last Done Comments [...] Procedure Name Priority Date/Time Associated Diagnosis Comments OUTSIDE CT CHEST REPORT ONLY Routine 10/09/2025 10:51 AM EST MAMMOGRAPHY Routine 04/25/2025 4:38 PM EDT OUTSIDE [...] Recently Relevant to Health Maintenance Results * Outside CT??Chest Report Only (10/09/2025 10:51 AM EST) us Historical Provider MD IMG CT CHEST Final Res ult * HM MAMMOGRAPHY FOR RESULT ENTRY ONLY (04/25/2025 4:38 PM EDT) Result [facility] Historical Provider MD HEALTH MAINTENANCE Final Result * Outside TSH Level (03/27/2025) Pathologist [facility] TSH - External 1.37 0.5 - 5 uIU/L EXTERNAL NON-INTERFACED REF LAB Result [facility] Provider MD LAB BLOOD ORDERABLES Za l Result Performing Organization Address City/[facility]/ZIP Co de Phone Number EXTERNAL NON-INTERFACED REF LAB * Outside Potassium Level (03/27/2025) Pathologist [facility] Potassium level - External 4.5 3.4 - 5.0 mmol/L EXTERNAL NON-INTERFACED REF LAB Result [facility] Provider MD LAB BLOOD ORDERABLES Za l Result Performing Organization Address City/[facility]/ZIP Co de Phone Number EXTERNAL NON-INTERFACED REF LAB * Outside HbA1c (03/27/2025) Pathologist [facility] Hemoglobin A1c - External 6.2 % EXTERNAL NON-INTERFACED REF LAB Result [facility] Provider MD LAB BLOOD ORDERABLES Za l Result Performing Organization Address City/[facility]/ZIP Co de Phone Number EXTERNAL NON-INTERFACED REF LAB * (ABNORMAL) Outside Serum Creatinine Level (03/27/2025) Pathologist [facility] Creatinine, serum - External 0.65(A) 0.8 - 1.3 mg/dL EXTERNAL NON-INTERFACED REF LAB Result [facility] Provider MD LAB BLOOD ORDERABLES Za l Result Performing Organization Address City/[facility]/ZIP Co de Phone Number EXTERNAL NON-INTERFACED REF LAB * Outside ALT Level (03/27/2025) Pathologist [facility] ALT - External 12 5 - 30 U/L EXTE RNAL NON-INTERFACED REF LAB Result [facility] Provider MD LAB BLOOD ORDERABLES Za l Result Performing Organization Address City/[facility]/ZIP Co de Phone Number EXTERNAL NON-INTERFACED REF LAB * HM DIABETES EYE EXAM FOR RESULT ENTRY ONLY (11/23/2023) Pathologist [facility] HM EYE EXAM normal Historical Provider HEALTH MAINTENANCE Final Result * OUTSIDE BONE DENSITY SCREENING (02/07/2021) [facility] BONE DENSITY SCREENING - EXTERNAL osteopenia Historical Provider HEALTH MAINTENANCE Final Result * Hepatitis C antibody, qualitative (10/28/2019 2:23 PM EST) [facility] HCV NON-REACTIV E NON-REACTI VE [facility] Blood 10/28/2019 2:23 PM EST 10/28/2019 2:26 PM EST Ang Bernstein MD LAB BLOOD BKR ORDERABLES Za l Result Performing Organization Address City/State/[facility] Co de Phone Number [address] [address] * COLONOSCOPY FOR RESULT ENTRY ONLY (08/28/2016) [facility] Colonoscopy 10 yr recall Historical Provider HEALTH MAINTENANCE Edited Result - Final from Last 3 Months or Most Recently Relevant to Health Maintenance Insurance [facility] SUPPLE[facility] MEDICARE PART A & B [facility] MEDICARE SUPPLEMENT MEDICARE PART A & B [facility] MEDICARE SUPPLEMENT MEDICARE PART A & B [facility] MEDICARE SUPPLEMENT MEDICARE PART A & B [facility] MEDICARE SUPPLEMENT MEDICARE PART A & B [facility] MEDICARE SUPPLEMENT MEDICARE PART A & B [facility] MEDICARE SUPPLEMENT MEDICARE PART A & [place] [address] [place] [address] EXTENSION MEDICARE SUPPLE[address] [place] [place] [phone] MEDICARE PART A & B [facility] MEDICARE SUPPLEMENT MEDICARE PART A & B Care Teams Mechanical Engineering Officer Relationship Specialty Start Date End Date Ang Bernstein MD [address] [place] [address] PCP - General 10/15/17 Ang Bernstein MD [address] [place] [address] Insurance Assigned Provider 02/20/24 Additional Source Comments The information contained in this document represents components of the legal health record. It is not the complete legal health record.[facility]
--- OUTSIDE RECORDS SUMMARY | 2025-10-09 10:59 | XMS_ITS | Encounter Summary ---
Author Organization [facility] Address [address] [facility] [address] [place] [address] Phone Care Team Providers Care Dry Cleaner Hand Name Role Phone Ang Bernstein MD Primary Care Provider [phone] Ang Bernstein MD Unavailable [phone] Encounter Details Date Type Department Care Team (Late st Contact Info) Description 01/04/2025 Procedure Pass [facility], [address] [address] Social History Tobacco Use Types Packs/Day Years [...] Description 11/01/2025 3:30 PM EST Office Visit [facility] Internal Medicine 40 [place], [place] [phone] Ang Bernstein MD [address] [place] [address] documented as of this encounter Visit Diagnoses Not on filedocumented in this encounter Additional Health Concerns Assessment Noted Time PHQ-9 Depression Total Score: 6 04/22/20 22 3:50 PM EDT PHQ-2 Depression Total Score: 2 07/21/20 24 6:18 PM EDT documented as of this encounter Care Teams Dry Cleaner Hand Relationship Specialty Start Date End Date Ang Bernstein MD [address] [place] [address] PCP - General 10/15/17 Ang Bernstein MD [address] [place] [address] Insurance Assigned Provider 02/20/24 documented as of this encounter Additional Source Comments The information contained in this document represents components of the legal health record. It is not the complete legal health record.[facility]
--- OUTSIDE RECORDS SUMMARY | 2025-10-09 10:59 | XMS_ITS | Encounter Summary ---
Author Organization [facility] Address [address] [place] [address] Phone Care Team Providers Care Athletic Training Internship Name Role Phone nAg Bernstein MD Primary Care Provider [phone] Ang Bernstein MD Unavailable Encounter Details Date Type Department Care Team (Late st Contact Info) Description 03/22/2025 Documentation [facility] Internal Medicine [address] [place], [place] [phone] Ang Bernstein MD [address] [place] [address] [email or web address] Social History Tobacco Use Types Packs/Day [...] Description 11/01/2025 3:30 PM EST Office Visit [facility] Internal Medicine 40 [place] [address] Ang Bernstein MD 40 [place] [address] [email or web address] documented as of this encounter Procedures [...] documented as of this encounter Care Teams Athletic Training Internship Relationship Specialty Start Date End Date Ang Bernstein MD [address] [place] [address] [email or web address] PCP - General 10/15/17 Ang Bernstein MD [address] [place] [address] [email or web address] Insurance Assigned Provider 02/20/24 documented as of this encounter Additional Source Comments The information contained in this document represents components of the legal health record. It is not the complete legal health record.[facility]
--- OUTSIDE RECORDS SUMMARY | 2025-10-09 10:59 | XMS_ITS | Encounter Summary ---
Author Organization [facility] Address [address] [facility] [address] [place] [address] Phone Care Team Providers Care Fabric Separator Operator Name Role Phone Ang Bernstein MD Primary Care Provider [phone] Ang Bernstein MD Unavailable [phone] Ela Alarcon RN Unavailable [phone] Encounter Details Date Type Department Care Team (Late st Contact Info) Description 03/25/2023 Telephone [facility] [address] [place] [address] Barbara Barrientos RN [email or web address] Social History Tobacco Use Types Packs/Day [...] [facility] Internal Medicine 40 [place], [place] [phone] Ang Bernstein MD 40 [place], [place] [phone] documented as of this encounter Visit Diagnoses Not on filedocumented in this encounter Additional Health Concerns Assessment Noted Time PHQ-9 Depression Total Score: 6 04/22/20 22 3:50 PM EDT PHQ-2 Depression Total Score: 2 04/22/20 22 3:50 PM EDT documented as of this encounter Care Teams Fabric Separator Operator Relationship Specialty Start Date End Date Ang Bernstein MD [address] [place] [address] PCP - General 10/15/17 Ang Bernstein MD [address] [place], [place] [phone] Insurance Assigned Provider 02/20/24 Ela Alarcon, RN [address] [place] [address] [id number] PHCM [place] TaperMaintenance Man 06/15/23 07/05/23 documented as of this encounter Additional Source Comments The information contained in this document represents components of the legal health record. It is not the complete legal health record.[facility]
--- OUTSIDE RECORDS SUMMARY | 2025-10-09 10:59 | XMS_ITS | Encounter Summary ---
Author Organization [facility] Address [address] [place] [address] Phone Care Team Providers Care Fare Register Repairer Name Role Phone Ang Bernstein MD Primary Care Provider [phone] Ang Bernstein MD Unavailable [phone] Encounter Details Date Type Department Care Team (Late st Contact Info) Description 12/20/2024 Procedure Pass [facility], Ct Scan - [address] [address] Social History Tobacco Use Types Packs/Day Years [...] Office Visit [facility] Internal Medicine 40 [place], [place] [phone] Ang Bernstein MD 40 [place] [address] documented as of this encounter Visit Diagnoses Not on filedocumented in this encounter Additional Health Concerns Assessment Noted Time PHQ-9 Depression Total Score: 6 04/22/20 22 3:50 PM EDT PHQ-2 Depression Total Score: 2 07/21/20 24 6:18 PM EDT documented as of this encounter Care Teams Fare Register Repairer Relationship Specialty Start Date End Date Ang Bernstein MD [address] [place] [address] PCP - General 10/15/17 Ang Bernstein MD [address] [place] [address] Insurance Assigned Provider 02/20/24 documented as of this encounter Additional Source Comments The information contained in this document represents components of the legal health record. It is not the complete legal health record.[facility]
--- OUTSIDE RECORDS SUMMARY | 2025-10-09 10:59 | XMS_ITS | Encounter Summary ---
Author Organization [facility] Address [address] [facility] [address] [place] [address] Phone Care Team Providers Care Seed Tester Name Role Phone Ang Bernstein MD Unavailable Renu Araujo [place] Unavailable [phone] Josi Quinonez [place] Unavailable Becka Brar [place] Unavailable [phone] Bryce Steve MD Unavailable Ang Bernstein MD Primary Care Provider Ang Bernstein MD Unavailable Ela Alarcon RN Unavailable Encounter Details Date Type Department Care Team (Late st Contact Info) Description 06/23/2019 Ancillary Orders [facility]ics & Sports Medicine [address] [place] [address] Jelena Sow MD [address] [place] [address] Orthopedics & Sports Medicine, [facility] [place] [address] Social History Tobacco Use Types Packs/Day Years [...] Description 11/01/2025 3:30 PM EST Office Visit [facility] Internal Medicine 40 [place] [address] Ang Bernstein MD 40 [place] [address] [email or web address] documented as of this encounter Visit Diagnoses Not on filedocumented in this encounter Additional Health Concerns Infection Onset Date Last Indicated Resolved Time CoV-Presumed 06/13/2022 06/13/2022 07/04/2022 1:21 AM EDT Assessment Noted Time PHQ-2 Depression Total Score: 0 12/10/19 8:40 AM EST documented as of this encounter Care Teams Seed Tester Relationship Specialty Start Date End Date Ang Bernstein MD [address] [place] [address] PCP - General 10/15/17 Ang Bernstein MD [address] [place] [address] Historical LMR Provider 09/05/17 09/13/19 Renu Araujo NP [address] [place] [address] [email or web address] Historical LMR Provider 09/05/1709/13 Josi Quinonez NP [address] [facility] [address] [place] [address] Historical LMR Provider 09/05/1709/13 Becka Brar NP [address] [facility] 6 [place] [address] Historical LMR Provider 09/05/17 09/13/19 Bryce Steve MD 45 [place] [address] Historical LMR Provider 09/05/17 Ang Bernstein MD 40 [place] [address] Insurance Assigned Provider 02/20/24 Ela Alarcon, RN 10 [place] [address] PHCM Tipple RepairerProposal Writer 06/15/23 07/05/23 documented as of this encounter Additional Source Comments The information contained in this document represents components of the legal health record. It is not the complete legal health record.[facility]
--- OUTSIDE RECORDS SUMMARY | 2025-10-09 10:59 | XMS_ITS | Encounter Summary ---
Author Organization [facility] Address [address] [place] [address] Phone Care Team Providers Care Damage Prevention Coordinator Name Role Phone Ang Bernstein MD Primary Care Provider [phone] Ang Bernstein MD Unavailable [phone] Reason for Referral * MRI/CAT Scan - Authorized Specialty Diagnoses / Procedures Referred By Contac t Referred To Contact Radiology Procedures Outside CT Chest Report Only [facility] Internal Medicine [address] [place] [address] Phone: tel: fax: Referral ID Status Reason Start Date Expiration Date V isits Requested Visits Authorized [id number] Authorized 10/09/2025 1 1 Encounter Details Date Type Department Care Team (Late st Contact Info) Description 10/09/2025 Orders Only [facility] Internal Medicine [address] [place] [address] Angelic Johnson MD [address] [place] [address] Social History Tobacco Use Types Packs/Day Years [...] Description 11/01/2025 3:30 PM EST Office Visit [facility] Internal Medicine [address] [place] [address] Ang Bernstein MD 40 [place] [address] [email or web address] documented as of this encounter Procedures Procedure Name Priority Date/Time Associated Diagnosis Comments OUTSIDE CT CHEST REPORT ONLY Routine 10/09/2025 10:51 AM EST documented in this encounter Results * Outside CT??Chest Report Only (10/09/2025 10:51 AM EST) us Historical Provider MD MARAVILLA CT CHEST Final Res ult documented in this encounter Visit Diagnoses Not on filedocumented in this encounter Additional Health Concerns Assessment Noted Time PHQ-9 Depression Total Score: 6 08/01/20 25 3:17 PM EDT PHQ-2 Depression Total Score: 2 08/01/20 3:17 PM EDT documented as of this encounter Care Teams Damage Prevention Coordinator Relationship Specialty Start Date End Date Ang Bernstein MD [address] [place] [address] PCP - General 10/15/17 Ang Bernstein MD [address] [place] [address] Insurance Assigned Provider 02/20/24 documented as of this encounter Additional Source Comments The information contained in this document represents components of the legal health record. It is not the complete legal health record.[facility]
--- OUTSIDE RECORDS SUMMARY | 2025-10-09 10:59 | XMS_ITS | Encounter Summary ---
Author Organization [facility] Address [address] [employer] [facility] [address] [place] [address] Phone Care Team Providers Care Medical Records Analyst Name Role Phone Ang Bernstein MD Primary Care Provider [phone] Ang Bernstein MD Unavailable [phone] Encounter Details Date Type Department Care Team (Late st Contact Info) Description 01/04/2025 Procedure Pass [facility], [address] [address] Social History Tobacco Use Types Packs/Day Years [...] Description 11/01/2025 3:30 PM EST Office Visit [facility] Internal Medicine 40 [place], [place] [phone] Ang Bernstein MD [address] [place] [address] documented as of this encounter Visit Diagnoses Not on filedocumented in this encounter Additional Health Concerns Assessment Noted Time PHQ-9 Depression Total Score: 6 04/22/20 22 3:50 PM EDT PHQ-2 Depression Total Score: 2 07/21/20 24 6:18 PM EDT documented as of this encounter Care Teams Medical Records Analyst Relationship Specialty Start Date End Date Ang Bernstein MD [address] [place] [address] PCP - General 10/15/17 Ang Bernstein MD [address] [place] [address] Insurance Assigned Provider 02/20/24 documented as of this encounter Additional Source Comments The information contained in this document represents components of the legal health record. It is not the complete legal health record.[facility]
== END 2025-10-09 09:33 | disposition home or self-care (01) ==
LOC: HO.CT 09:32
PROVIDERS: PCP Internal Medicine; Visit Provider Internal Medicine
DX: J98.4 Other disorders of lung (principal); J45.909 Unspecified asthma, uncomplicated
CPT/HCPCS: 71250

== ENCOUNTER → 2025-10-09 09:36 | Outpatient (BNV) | payer MEDICARE, OTHER, SELFPAY | PROVIDERS: PCP Internal Medicine; Visit Provider Radiology Diagnostic Radiology | DX: I51.7 Cardiomegaly (principal); I31.39 Other pericardial effusion (noninflammatory) | CPT/HCPCS: 71250 ==

== ENCOUNTER 2025-10-18 12:51 | Outpatient (AMB) | payer MEDICARE, OTHER, SELFPAY ==
--- NOTE | 2025-10-18 13:11 | A.OFFVIS_ITS ---
Vital Signs 10/18/25 13:12 Height 5 ft 2 in BMI Reason not done Patient refused/unable BP 120/68 Blood Pressure Location Lt radial Position Sitting Pulse 96 Pulse Source Monitor Intake Visit Reasons: 4-6wk per santy Intake Note: 4-6wk pt extreamly SOB, Radio Communications Mechanician Required: No Accompanied by: Self / Same As Patient Allergies adhesive tape (ADHESIVE TAPE) Allergy (Intermediate, Verified 09/13/25 13:56) BLISTERS Medication List - Last Reconciled 10/18/25 by Jaime Clifford MD albuterol sulfate 90 mcg/actuation 2 puffs inhalation Q4-6H PRN 30 days amiodarone 200 mg PO DAILY apixaban (Eliquis) 5 mg PO BID cholecalciferol (vitamin D3) 25 mcg PO DAILY fluticasone furoate-vilanterol 200-25 mcg/dose (Breo Ellipta) 1 ea inhalation DAILY furosemide 40 mg PO DAILY mecobalamin (vitamin B12) 5,000 mcg PO DAILY metoprolol succinate ER 75 mg (1.5 x 50 mg) PO DAILY 90 days multivitamin 1 tab PO DAILY omega-3 fatty acids 1,250 mg PO DAILY omeprazole 20 mg PO DAILY@0630 paroxetine HCl 45 mg PO DAILY rosuvastatin 10 mg PO BEDTIME semaglutide (Ozempic) 4 mg subcut FR valsartan 320 mg PO DAILY HPI Comments Details: [age] female with atrial fibrillation and dyspnea on exertion. Echocardiography done in May 2025 showed EF 45-50%. Severely dilated left atrium. Moderate RV dilation with low normal RV function. After discussion we decided to cardiovert her. This was unsuccessful and she was started on amiodarone. Subsequent to that she got admitted to the hospital feeling weak and tired and was positive for COVID-19. At that time she had AFib with RVR and congestive heart failure and apparently was diuresed and sent home. We tried to cardiovert her again in August 2025 with amiodarone but unfortunately we were unsuccessful. Our plan was to send her to [facility] where 360 joule defibrillator raise available. She was also referred to EP for ablation. She is waiting to get CT scan done. She is getting more and more short of breath and now gets out of breath with minimal activity at home. She also has been getting some PND/orthopnea. She sleeps with CPAP. She has noticed some peripheral edema. PENDING SALE TO [facility] Medical History Restrictive lung disease Bilateral cataracts History of cardioversion GERD (gastroesophageal reflux disease) Bronchitis Asthma exacerbation PAF (paroxysmal atrial fibrillation) MDD (major depressive disorder) HTN (hypertension) Post covid-19 condition, unspecified Morbid obesity JIMBO on CPAP Bronchial asthma Surgical History History of cardioversion Anal fistula Hx of laparoscopic gastric banding History of hysterectomy for cancer H/O umbilical hernia repair History of cholecystectomy H/O colonoscopy Social History Household Members: Spouse Housing: House Are you a primary customer care representative to a significant other at home: No Do you presently have visiting nurse or other home services: No Alcohol intake: never Patient Tobacco Use Status: Former Tobacco user Tobacco use type: Cigarette Years Smoked: 25 Second Hand Smoke Exposure: No Advance Directives Date on File: 12/23/22 service: No Current occupational status: unemployed Review of Systems Const Denies chills, Reports fatigue, Denies fever(s), Denies frequent falls, Reports weakness, Denies weight gain and Denies weight loss ENT Denies dizziness Card Denies chest pain, Denies leg edema, Denies lightheadedness, Denies palpitations, Reports dyspnea, Reports dyspnea on exertion and Reports orthopnea Resp Denies cough, Reports dyspnea and Reports dyspnea on exertion GI Denies hematochezia Musc Denies abnormal gait, Denies muscle weakness, Denies numbness, Denies radiating pain into limb and Denies tingling Neuro Denies abnormal gait, Denies dizziness, Denies frequent falls, Denies numbness, Denies tingling and Reports weakness Endo Reports fatigue and Denies palpitations Physical Exam Vital Signs: Last Vital Signs Pulse 96 10/18/25 13:12 BP 120/68 10/18/25 13:12 GENERAL APPEARANCE: Short of breath. NECK: no carotid bruit, + jugular venous distention. SKIN: no suspicious lesions, warm and dry. HEART: no murmurs, irregular rate and rhythm. LUNGS: clear to auscultation bilaterally. ABDOMEN: soft, nontender. EXTREMITIES: Mild edema. PERIPHERAL PULSES: equal. NEUROLOGIC: No gross deficits, AAO X 3 Assessment & Plan Assessment & Plan (1) HTN (hypertension): Code(s): I10 - Essential (primary) hypertension Category: Medical (2) Acute on chronic diastolic heart failure: Code(s): I50.33 - Acute on chronic diastolic (congestive) heart failure Category: Medical (3) Persistent atrial fibrillation: Code(s): I48.19 - Other persistent atrial fibrillation Category: Medical Plan [age] female with diastolic heart failure and persistent atrial fibrillation. We attempted cardioversion on her in May 2025 which was unsuccessful and plan was to loaded with amiodarone and bring her back. In the interim she developed COVID-19 infection and congestive heart failure. Subsequently she was seen and plan for cardioversion in August 2025 which was unsuccessful. Our plan was to refer her to [facility] to have cardioversion there followed by ablation. She has seen electrophysiology at [facility] and is waiting to do CT scan before AFib ablation could be done. She appears to be in acute heart failure. Clinically volume overloaded. She is on 40 mg of Lasix. I discussed with her that we can admit her to hospital and diurese her and once she is improving potentially transferred to [facility] to get cardioversion done there the 360 joule defibrillator. She is agreeable and I am sending her to the emergency department. We will start her on 40 mg IV b.i.d. Lasix. Check basic labs including BNP, check chest x-ray and repeat echocardiography. She had moderate right ventricular dysfunction before. Thank you for allowing me to participate in the care of your patient. Please feel free to contact me if you have any questions. Coding Level of Care Code Est Pt Level 4 (83986) Diagnoses HTN (hypertension) I10 Acute on chronic diastolic heart failure I50.33 Persistent atrial fibrillation I48.19
[2025-10-18 13:12] VITALS: BP 120/68; PULSE 96
--- OUTSIDE RECORDS SUMMARY | 2025-10-18 15:12 | XMS_ITS | Encounter Summary ---
Author Organization [facility] Address [address] [employer] [facility] [address] [place] [address] Phone Care Team Providers Care Whipped Topping Finisher Name Role Phone Ang Bernstein MD Primary Care Provider [phone] Ang Bernstein MD Unavailable [phone] Encounter Details Date Type Department Care Team (Late st Contact Info) Description 01/04/2025 Procedure Pass [facility], [address] [address] Social History Tobacco Use Types Packs/Day Years [...] Description 11/01/2025 3:30 PM EST Office Visit [facility] Internal Medicine [address] [place] [address] Ang Bernstein MD [address] [place] [address] [email or web address] 11/17/2025 1:30 PM EST Telemedicine [facility] Behavioral Health [address] [place] [address] Ariella Bonilla, [facility], [address] [address] [email or web address] documented as of this encounter Visit Diagnoses Not on filedocumented in this encounter Additional Health Concerns Assessment Noted Time PHQ-9 Depression Total Score: 6 04/22/20 22 3:50 PM EDT PHQ-2 Depression Total Score: 2 07/21/20 24 6:18 PM EDT documented as of this encounter Care Teams Whipped Topping Finisher Relationship Specialty Start Date End Date Ang Bernstein MD [address] [place] [address] [email or web address] PCP - General 10/15/17 Ang Bernstein MD [address] [place] [address] [email or web address]) [email or web address] Insurance Assigned Provider 02/20/24 documented as of this encounter Additional Source Comments The information contained in this document represents components of the legal health record. It is not the complete legal health record.[facility]
--- OUTSIDE RECORDS SUMMARY | 2025-10-18 15:12 | XMS_ITS | Encounter Summary ---
Author Organization [facility] Address [address] [facility] [address] [place] [address] Phone Care Team Providers Care Sales Administrator Name Role Phone Ang Bernstein MD Unavailable [phone] Renu Araujo ACCOUNTANCY PROFESSOR Unavailable Josi Quinonez ACCOUNTANCY PROFESSOR Unavailable Becka Brar ACCOUNTANCY PROFESSOR Unavailable [phone] Bryce Steve MD Unavailable Ang Bernstein MD Primary Care Provider Ang Bernstein MD Unavailable Ela Alarocn RN Unavailable [phone] Encounter Details Date Type Department Care Team (Late st Contact Info) Description 06/23/2019 [facility] [address] [place] [address] Jelena Sow MD [address] [place] [address] [facility] [place], [place] [id number] [email or web address] Right ankle pain, unspecified chronicity [...] [facility] Internal Medicine [address] [place] [address] Ang Bernstein MD [address] [place] [address] [email or web address] 11/17/2025 1:30 PM EST Telemedicine [facility] Behavioral Health [address] [place] [address] Ariella Bonilla, [facility]- [address] [facility], [address] [place] [address] [email or web address] documented as of this encounter Results * [...] as of this encounter Care Teams Sales Administrator Relationship Specialty Start Date End Date Ang Bernstein MD [address] [place] [address] PCP - General 10/15/17 Ang Bernstein MD [address] [place] [address] Historical LMR Provider 09/05/17 09/13/19 Renu Araujo NP [address] [place] [address] [email or web address] Historical LMR Provider 09/05/1709/13 Josi Quinonez, [place] [address] [place] [address] Historical LMR Provider 09/05/1709/13 Becka Brar NP [address] [place] [address] Historical LMR Provider 09/05/17 09/13/19 Bryce Steve MD [address] [place] [address] Historical LMR Provider 09/05/17 Ang Bernstein MD [address] [place] [address] Insurance Assigned Provider 02/20/24 Ela Alarcon, RN [address] [place] [address] [email or web address] PHCM Lathe WinderCampus Manager 06/15/23 07/05/23 documented as of this encounter Additional Source Comments The information contained in this document represents components of the legal health record. It is not the complete legal health record.[facility]
--- OUTSIDE RECORDS SUMMARY | 2025-10-18 15:12 | XMS_ITS | Encounter Summary ---
Author Organization [facility] Address [address] [facility] [address] [place] [address] Phone Care Team Providers Care Landing Worker Name Role Phone Ang Bernstein MD Primary Care Provider [phone] Ang Bernstein MD Unavailable [phone] Ela Alarcon RN Unavailable [phone] Encounter Details Date Type Department Care Team (Late st Contact Info) Description 03/25/2023 Telephone [facility] Internal Medicine [address] [place] [address] Barbara Barrientos RN [email or web address] Social History Tobacco Use Types [...] Description 11/01/2025 3:30 PM EST Office Visit [facility] Internal Medicine [address] [place], [place] [phone] Ang Bernstein MD 40 [place], [place] [phone] 11/17/2025 1:30 PM EST Telemedicine [facility] Behavioral Health [address] [place] [address] Ariella Bonilla, [facility] [address] [facility], [facility] [address] [place] [address] documented as of this encounter Visit Diagnoses Not on filedocumented in this encounter Additional Health Concerns Assessment Noted Time PHQ-9 Depression Total Score: 6 04/22/20 22 3:50 PM EDT PHQ-2 Depression Total Score: 2 04/22/20 22 3:50 PM EDT documented as of this encounter Care Teams Landing Worker Relationship Specialty Start Date End Date Ang Bernstein MD [address] [place] [address] PCP - General 10/15/17 Ang Bernstein MD [address] [place] [address] Insurance Assigned Provider 02/20/24 Ela Alarcon, RN [address] [place] [phone] PHCM Office ManagerElectronics Inspector 06/15/23 07/05/23 documented as of this encounter Additional Source Comments The information contained in this document represents components of the legal health record. It is not the complete legal health record.[facility]
--- OUTSIDE RECORDS SUMMARY | 2025-10-18 15:12 | XMS_ITS | Encounter Summary ---
Author Organization [facility] Address [address] [place] [address] Phone Care Team Providers Care Visitor Services Assistant Name Role Phone Ang Bernstein MD Primary Care Provider Ang Bernstein MD Unavailable [phone] Encounter Details Date Type Department Care Team (Late st Contact Info) Description 12/20/2024 Procedure Pass [facility], Ct Scan - [address] [address] Social History Tobacco Use Types Packs/Day Years [...] Description 11/01/2025 3:30 PM EST Office Visit [facility] Internal Medicine [address] [place], [place] [phone] Ang Bernstein MD 40 [place] [address] [email or web address] 11/17/2025 1:30 PM EST Telemedicine [facility] Behavioral Health [address] [place] [address] Ariella Bonilla, [facility]-[address], [address] [address] [email or web address] documented as of this encounter Visit Diagnoses Not on filedocumented in this encounter Additional Health Concerns Assessment Noted Time PHQ-9 Depression Total Score: 6 04/22/20 22 3:50 PM EDT PHQ-2 Depression Total Score: 2 07/21/20 24 6:18 PM EDT documented as of this encounter Care Teams Visitor Services Assistant Relationship Specialty Start Date End Date Ang Bernstein MD [address] [place] [address] [email or web address] PCP - General 10/15/17 Ang Bernstein MD [address] [place] [address] [email or web address] Insurance Assigned Provider 02/20/24 documented as of this encounter Additional Source Comments The information contained in this document represents components of the legal health record. It is not the complete legal health record.[facility]
--- OUTSIDE RECORDS SUMMARY | 2025-10-18 15:12 | XMS_ITS | Clinical Summary ---
Author Organization [facility] Address [address] [facility] [address] [place] [address] Phone Care Team Providers Care Dinkey Driver Name Role Phone Ang Bernstein MD Primary Care Provider [phone] Ang Bernstein MD Unavailable [phone] Allergies Active Allergy Reactions Criticality Noted Date [...] p.o. twice daily. 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 [...] Department Care Team Description 10/09/2025 Orders Only [facility] Internal Medicine [address] [facility] [place] [address] ProviderAngelic MD 09/01/2025 Telephone [facility] Internal Medicine [address] [facility] [place] [address] Ang Bernstein MD 09/01/2025 Telephone [facility] Internal Medicine [address] [facility] Tr[place]catar[place] [address] Ang Bernstein MD 09/01/2025 Refill [facility] Internal Medicine [address] [facility] [place] [address] Ang Bernstein MD Medication Refill 08/02/2025 11:00 AM EDT Office Visit [facility] Internal Medicine [address] [facility] [place] [address] Ang Bernstein MD Routine general medical examination at a health care facility (Primary Dx); Diabetes mellitus with microalbuminuria; Need for prophylactic vaccination and inoculation against influenza; Other depression; Essential hypertension; Obesity, morbid; Chronic diastolic HF (heart failure); Permanent atrial fibrillation; Asthma-COPD overlap syndrome; Vitamin D deficiency; Vitamin B12 deficiency 08/01/2025 Documentation [facility] [address] [place] [address] Ang Bernstein MD from Last 3 Months Immunizations Immunization Administration [...] Visit [facility] Internal Medicine [address] [place] [address] Ang Bernstein MD 40 [place] [address] 11/17/2025 1:30 PM EST Telemedicine [facility] Behavioral Health [address] [place] [address] Ariella Bonilla, HNP- [address] [facility], [address] [place] [address] Health Maintenance Due Date Last Done Comments [...] Additional history exists HEMOGLOBIN A1C 09/27/2025 03/27/2025, 0 07/2025, 07/25/2024, Additional history exists BLOOD PRESSURE 01/30/2026 08/02/2025 ALT LEVEL (ALANINE AMINOTRANSFERASE) 03/27/2026 03/27/2025, 11/24/2024, 07/25/2024, Additional history exists CREATININE LEVEL 03/27/2026 03/27/2025, 07/2025, 07/25/2024, Additional history exists POTASSIUM LEVEL 03/27/2026 03/27/2025, 01/0 07/2025, 07/25/2024, Additional history exists TSH LEVEL 03/27/2026 03/27/2025, 010 07/2025, 07/25/2024, Additional history exists DEPRESSION SCREENING [...] REPORT ONLY Routine 10/09/2025 10:51 AM EST HM MAMMOGRAPHY Routine 04/25/2025 4:38 PM EDT OUTSIDE [...] CT??Chest Report Only (10/09/2025 10:51 AM EST) Result [facility] Provider IMG CT CHEST Final Res ult * HM MAMMOGRAPHY FOR RESULT ENTRY ONLY (04/25/2025 4:38 PM EDT) Result [facility] Provider HEALTH MAINTENANCE Final Result * Outside TSH Level (03/27/2025) Pathologist [facility] TSH - External 1.37 0.5 - 5 uIU/L EXTERNAL NON-INTERFACED REF LAB Result [facility] Provider MD LAB BLOOD ORDERABLES Za l Result Performing Organization Address [facility] de Phone Number EXTERNAL NON-INTERFACED REF LAB * Outside Potassium Level (03/27/2025) Pathologist [facility] Potassium level - External 4.5 3.4 - 5.0 mmol/L EXTERNAL NON-INTERFACED REF LAB Result [facility] Provider MD LAB BLOOD ORDERABLES Za l Result Performing Organization Address [facility] Co de Phone Number EXTERNAL NON-INTERFACED REF LAB * Outside HbA1c (03/27/2025) Pathologist [facility] Hemoglobin A1c - External 6.2 % EXTERNAL NON-INTERFACED REF LAB Result [facility] Provider MD LAB BLOOD ORDERABLES Za l Result Performing Organization Address [facility] Co de Phone Number EXTERNAL NON-INTERFACED REF LAB * (ABNORMAL) Outside Serum Creatinine Level (03/27/2025) Pathologist [facility] Creatinine, serum - External 0.65(A) 0.8 - 1.3 mg/dL EXTERNAL NON-INTERFACED REF LAB Result [facility] Provider MD LAB BLOOD ORDERABLES Za l Result Performing Organization Address [facility] Co de Phone Number EXTERNAL NON-INTERFACED REF LAB * Outside ALT Level (03/27/2025) Pathologist [facility] ALT - External 12 5 - 30 U/L EXTE RNAL NON-INTERFACED REF LAB Result [facility] Provider MD LAB BLOOD ORDERABLES Za l Result EXTERNAL NON-INTERFACED REF LAB * HM DIABETES EYE EXAM FOR RESULT ENTRY ONLY (11/23/2023) Pathologist [facility] EYE EXAM normal Historical Provider HEALTH MAINTENANCE Final Result * OUTSIDE BONE DENSITY SCREENING (02/07/2021) Pathologist [facility] BONE DENSITY SCREENING - EXTERNAL osteopenia Historical Provider HEALTH MAINTENANCE Final Result * Hepatitis C antibody, qualitative (10/28/2019 2:23 PM EST) Pathologist [facility] HCV NON-REACTIV E NON-REACTI VE [facility] Blood 10/28/2019 2:23 PM EST 10/28/2019 2:26 PM EST Result [facility] Ang Bernstein MD LAB BLOOD BKR ORDERABLES Za l Result [address] [address] * COLONOSCOPY FOR RESULT ENTRY ONLY (08/28/2016) Pathologist [facility] Colonoscopy 10 yr recall Result [facility] Historical Provider HEALTH MAINTENANCE Edited Result - Final from Last 3 Months or Most Recently Relevant to Health Maintenance Insurance [employer] MEDICARE SUPPLEMENT MEDICARE PART A & B [facility] MEDICARE SUPPLEMENT MEDICARE PART A & B Member Subscriber Plan / Payer (Ef fective 2020-Present) Name:Gabriela Hernandez Member ID:[id number] Relation to Subscriber:Self Name:Gabriela Hernandez Subscriber ID:[id number] Payer ID:[id number] Group ID:Not on file Type:Medicare Address: [employer] [address] [facility] MEDICARE SUPPLEMENT MEDICARE PART A & B [facility] EXTENSION MEDICARE SUPPLEMENT MEDICARE PART A & B [facility] EXTENSION MEDICARE SUPPLEMENT MEDICARE PART A & B Member Subscriber Plan / Payer (Ef fective 2020-Present) Name:Gabriela Hernandez Member ID:[id number] Relation to Subscriber:Self Name:Gabriela Hernandez Subscriber ID:[id number] Payer ID:[id number] Group ID:Not on file Type:Medicare Address: [employer] [address] [place] [address] MEDICARE SUPPLEMENT MEDICARE PART A & [place] [address] [place] [address] EXTENSION MEDICARE SUPPLEMENT MEDICARE PART A & B [facility] EXTENSION MEDICARE SUPPLEMENT MEDICARE PART A & B [facility] EXTENSION MEDICARE SUPPLEMENT MEDICARE PART A & B Care Teams Dinkey Driver Relationship Specialty Start Date End Date Ang Bernstein MD [address] [place] [address] [email or web address] PCP - General 10/15/17 Ang Bernstein MD [address] [place] [address] [email or web address] Insurance Assigned Provider 02/20/24 Additional Source Comments The information contained in this document represents components of the legal health record. It is not the complete legal health record.[facility]
--- OUTSIDE RECORDS SUMMARY | 2025-10-18 15:12 | XMS_ITS | Encounter Summary ---
Author Organization [facility] Address [address] [facility] [address] [place] [phone] Phone Care Team Providers Care Proposition Player Name Role Phone Ang Bernstein MD Primary Care Provider [phone] Ang Bernstein MD Unavailable [phone] Encounter Details Date Type Department Care Team (Late st Contact Info) Description 01/04/2025 Procedure Pass [facility], [address] [address] Social History Tobacco Use Types Packs/Day Years [...] Description 11/01/2025 3:30 PM EST Office Visit [facility] Internal Medicine [address] [place] [address] Ang Bernstein MD [address] [place] [address] [email or web address] 11/17/2025 1:30 PM EST Telemedicine [facility] [address] [place] [address] Ariella Bonilla, [facility], [address] [address] [email or web address] documented as of this encounter Visit Diagnoses Not on filedocumented in this encounter Additional Health Concerns Assessment Noted Time PHQ-9 Depression Total Score: 6 04/22/20 22 3:50 PM EDT PHQ-2 Depression Total Score: 2 07/21/20 24 6:18 PM EDT documented as of this encounter Care Teams Proposition Player Relationship Specialty Start Date End Date Ang Bernstein MD [address] [place] [address] [email or web address] PCP - General 10/15/17 Ang Bernstein MD [address] [place] [phone] (work) [email or web address] Insurance Assigned Provider 02/20/24 documented as of this encounter Additional Source Comments The information contained in this document represents components of the legal health record. It is not the complete legal health record.[facility]
--- OUTSIDE RECORDS SUMMARY | 2025-10-18 15:12 | XMS_ITS | Encounter Summary ---
Author Organization [facility] Address [address] [place] [address] Phone Care Team Providers Care Education Assistant Name Role Phone Ang Bernstein MD Primary Care Provider [phone] Ang Bernstein MD Unavailable [phone] Encounter Details Date Type Department Care Team (Late st Contact Info) Description 03/22/2025 Documentation [facility] Internal Medicine [address] [place], [place] [id number] Ang Bernstein MD [address] [place] [address] [email or web address] Social History Tobacco Use [...] Description 11/01/2025 3:30 PM EST Office Visit [facility] Internal Medicine [address] [place] [address] Ang Bernstein MD [address] [place] [address] [email or web address] 11/17/2025 1:30 PM EST Telemedicine [facility] [address] [place] [id number] Ariella Bonilla, PMHNP-BC [address] [place] [address], [address] [address] [email or web address] documented as of this [...] documented as of this encounter Care Teams Education Assistant Relationship Specialty Start Date End Date Ang Bernstein MD [address] [place] [address] [email or web address] PCP - General 10/15/17 Ang Bernstein MD [address] [place] [address] Insurance Assigned Provider 02/20/24 documented as of this encounter Additional Source Comments The information contained in this document represents components of the legal health record. It is not the complete legal health record.[facility]
--- OUTSIDE RECORDS SUMMARY | 2025-10-18 15:12 | XMS_ITS | Encounter Summary ---
Author Organization [facility] Address [address] [facility] [address] [place] [address] Phone Care Team Providers Care Derivatives Trader Name Role Phone Ang Bernstein MD Unavailable [phone] Renu Araujo PASSENGER TIRE BUILDER Unavailable [phone] Josi Quinonez PASSENGER TIRE BUILDER Unavailable [phone] Becka Brar PASSENGER TIRE BUILDER Unavailable [phone] Bryce Steve MD Unavailable Ang Bernstein MD Primary Care Provider Ang Bernstein MD Unavailable Ela Alarcon RN Unavailable [phone] Encounter Details Date Type Department Care Team (Late st Contact Info) Description 06/23/2019 Ancillary Orders [facility] Orthopedics & Sports Medicine [address] [place] [phone] Jelena Sow MD [address] [place] [address] Orthopedics & Sports Medicine, [place] [address] Social History Tobacco Use Types Packs/Day Years [...] 11/01/2025 3:30 PM EST Office Visit [facility] Internal Medicine [address] [place] [address] Ang Bernstein MD [address] [place] [address] 11/17/2025 1:30 PM EST Telemedicine [facility] [address] [place] [address] Ariella Bonilla, [facility], [address] [address] documented as of this encounter Visit Diagnoses Not on filedocumented in this encounter Additional Health Concerns Infection Onset Date Last Indicated Resolved Time CoV-Presumed 06/13/2022 06/13/2022 07/04/2022 1:21 AM EDT Assessment Noted Time PHQ-2 Depression Total Score: 0 12/10/19 19 8:40 AM EST documented as of this encounter Care Teams Derivatives Trader Relationship Specialty Start Date End Date Ang Bernstein MD [address] [place] [address] PCP - General 10/15/17 Ang Bernstein MD [address] [place] [address] Historical LMR Provider 09/05/17 09/13/19 Renu Araujo, PASSENGER TI[employer] BUILDER [address] [place] [address] [email or web address] Historical LMR Provider 09/05/1709/13 Josi Quinonez, PASSENGER TIRE BUILDER 21 [facility] [address] [place] [address] Historical LMR Provider 09/05/1709/13 Becka Brar, [place] [address] [address] Historical LMR Provider 09/05/17 09/13/19 [place] [address] Historical LMR Provider 09/05/17 Ang Bernstein MD [address] [place] [address] Insurance Assigned Provider 02/20/24 Ela Alarcon, RN [address] [place] [address] PHCM [employer] DirectorNuclear Medicine Technologist 06/15/23 07/05/23 documented as of this encounter Additional Source Comments The information contained in this document represents components of the legal health record. It is not the complete legal health record.[facility]
== END 2025-10-18 13:40 | disposition home or self-care (01) ==
LOC: HO.HCS 12:52
PROVIDERS: PCP Internal Medicine; Visit Provider Internal Medicine Cardiovascular Disease
DX: I48.19 Other persistent atrial fibrillation (principal); I50.33 Acute on chronic diastolic (congestive) heart failure; I10 Essential (primary) hypertension
CPT/HCPCS: 93010; 99214; 99499

== ENCOUNTER 2025-10-18 13:50 | Inpatient (IN) | payer MEDICARE, OTHER, SELFPAY ==
--- NOTE | ~2025-10-18 | XR_ITS ---
EXAMINATION: XR CHEST CLINICAL INFORMATION: SOB COMPARISON: 10/09/2025 CT chest. TECHNIQUE: 2 views of the chest were obtained. FINDINGS: There is cardiomegaly present. Mediastinal contours are normal. The right hilum is abnormally prominent. The lungs demonstrate a small to moderate-sized right pleural effusion, which tracks along the lateral pleural margin into the upper pleural space. It also tracks into the major and minor fissures. There is associated passive parenchymal atelectasis of the adjacent right mid and lower lung. This The left lung appears clear. There is a probable small tiny pleural effusion. There is no focal osseous or soft tissue abnormality. There is a partially imaged gastric banding device. There are degenerative changes throughout the spine. XR/XR chest 2V IMPRESSION: 1. No significant change from the recent CT chest 10/09/2025. 2. Moderate cardiomegaly. 3. Layering right effusion tracking into the lateral pleural margin and into the major and minor fissures. There is associated passive parenchymal atelectasis of the adjacent right lung structures. Pneumonia cannot be excluded given the appearance in the appropriate clinical context. 4. There is a tiny left effusion. The left lung is otherwise clear. Electronically signed by: Taiwo Hoffman MD 10/18/2025 03:00 PM [facility]
--- NOTE | 2025-10-18 13:52 | ECG_ITS ---
Test Reason : SOB Blood Pressure : */* mmHG Vent. Rate : 97 BPM Atrial Rate : * BPM P-R Int : * ms QRS Dur : 94 ms QT Int : 364 ms P-R-T Axes : * -5 144 degrees QTcB Int : 462 ms Atrial fibrillation Septal infarct , age undetermined Abnormal ECG When compared with ECG of 31-Aug-2025 13:52, No significant change was found Referred By: Frederick Veliz Electronically Signed By: DAVID LARA
[2025-10-18 14:08] VITALS: BP 145/102; PULSE 107; RESP 18; TEMP 36.4; O2SAT 95; BMI 51.6
--- NOTE | 2025-10-18 16:34 | ED.GENADULT ---
HPI - General Adult General Chief complaint: Arrhythmia/Palpitations Stated complaint: AFib Time Seen by Provider: 10/18/25 16:53 Source: patient, family and old records reviewed Mode of arrival: ambulatory Limitations: no limitations History of Present Illness ED Provider: DR. Cobos HPI narrative: A 70-year-old female PMHx AFib on Eliquis, HFrEF 45-50%, JIMBO on CPAP, HTN, bronchial asthma, morbid obesity, patient with chronic atrial fibrillation came in today for evaluation of increased exertional dyspnea with minimal exertion, patient require to sleep on more pillows at night to help her with more sleep, patient now is sleeping on the recliner mostly sitting. Bilateral lower extremity increased swelling and edema. Patient takes 40 mg of Lasix normally daily. Related Data Home Medications ?Medication ?Instructions ?Recorded ?Confirmed paroxetine HCl 30 mg tablet 45 mg PO DAILY 10/01/20 10/18/25 mecobalamin (vitamin B12) 5,000 5,000 mcg PO DAILY 08/06/22 10/18/25 mcg disintegrating tablet rosuvastatin 10 mg tablet 10 mg PO BEDTIME 08/06/22 10/18/25 omeprazole 20 mg capsule,delayed 20 mg PO DAILY@0630 10/14/22 10/18/25 release amiodarone 200 mg tablet 200 mg PO DAILY 07/12/25 10/18/25 semaglutide 1 mg/dose (4 mg/3 mL) 1 mg subcut FR 07/12/25 10/18/25 subcutaneous pen injector (Ozempic) Previous Rx's ?Medication ?Instructions ?Recorded cholecalciferol (vitamin D3) 25 25 mcg PO DAILY #30 caps 09/17/20 mcg (1,000 unit) capsule multivitamin 1 tab PO DAILY #30 tabs 09/17/20 omega-3 fatty acids 1,250 mg 1,250 mg PO DAILY #30 caps 09/17/20 capsule valsartan 320 mg tablet 320 mg PO DAILY #90 tabs 08/17/23 furosemide 40 mg tablet 40 mg PO DAILY #90 tabs 02/21/25 fluticasone furoate 200 1 ea inhalation DAILY for asthma 03/27/25 mcg-vilanterol 25 mcg/dose #60 ea inhalation powder (Breo Ellipta) apixaban 5 mg tablet (Eliquis) 5 mg PO BID #180 tabs 05/16/25 metoprolol succinate 50 mg 75 mg (1.5 x 50 mg) PO DAILY 90 09/15/25 tablet,extended release 24 hr days #135 tabs albuterol sulfate 90 mcg/actuation 2 puff inhalation Q4-6H PRN 10/02/25 aerosol inhaler shortness of breath or wheezing 30 days #8.5 grams Allergies Allergy/AdvReac Type Severity Reaction Status Date / Time adhesive tape (ADHESIVE TAPE) Allergy Intermediate BLISTERS Verified 10/18/25 14:09 Review of Systems Review of Systems: All other systems are reviewed and are negative Constitutional: Reports as per HPI and Reports no additional constitutional complaints Eyes: Reports as per HPI and Reports no additional eye complaints Reports system reviewed and no additional complaints, except as documented Cardiovascular: Reports as per HPI and Reports no additional cardiovascular complaints Respiratory: Reports as per HPI and Reports no additional respiratory complaints Gastrointestinal: Reports as per HPI and Reports no additional gastrointestinal complaints Genitourinary: Reports no additional female genitourinary complaints Musculoskeletal: Reports no additional musculoskeletal complaints Skin/Breast: Reports system reviewed and no additional complaints, except as docu Psychiatric: Reports no additional psychiatric complaints Endocrine: Reports no additional endocrine complaints Hematologic/Lymphatic: Reports no additional hematologic/lymphatic complaints Allergic/Immunologic: Reports no additional allergic/immunologic complaints Reports system reviewed and no additional complaints, except as documented and Reports Abnormal speech present [facility] Past Medical History Medical History Restrictive lung disease Bilateral cataracts History of cardioversion GERD (gastroesophageal reflux disease) Bronchitis Asthma exacerbation PAF (paroxysmal atrial fibrillation) MDD (major depressive disorder) HTN (hypertension) Post covid-19 condition, unspecified Morbid obesity JIMBO on CPAP Bronchial asthma Surgical History History of cardioversion Anal fistula Hx of laparoscopic gastric banding History of hysterectomy for cancer H/O umbilical hernia repair History of cholecystectomy H/O colonoscopy Social History Social History Household Members: Spouse Housing: House Are you a primary morning caregiver to a significant other at home: No Do you presently have visiting nurse or other home services: No Alcohol intake: never Patient Tobacco Use Status: Former Tobacco user Tobacco use type: Cigarette Years Smoked: 25 Second Hand Smoke Exposure: No Advance Directives Date on File: 12/23/22 service: No Current occupational status: unemployed Physical Exam ED Vital Signs: Vital Signs - 24 hr 10/18/25 14:08 10/18/25 17:53 10/18/25 18:01 Temperature 97.5 F 97.9 F Pulse Rate 107 H 84 93 Respiratory Rate 18 18 16 Blood Pressure 145/102 H 143/89 H Pulse Oximetry 95 97 Oxygen Delivery Method Room Air Room Air BMI result Body Mass Index 51.6 Vital signs have been reviewed and appear to be correct. Blood pressure elevated. Heart rate elevated. Respiratory rate normal. Temperature normal. Oxygen saturation normal. Appearance: Alert. Oriented X3. No acute distress. Head: Normal external exam. Normocephalic. Atraumatic. No Arana signs noted. No raccoon eyes noted Eyes: PERRLA. EOMI. Conjunctiva and sclera normal. Eyelids normal. ENT: TM's Normal. Pharynx normal. Uvula midline. Moist mucous membranes. No trismus noted. No drooling noted. No muffled voice noted. Neck: Normal inspection. Neck supple. FROM. No adenopathy. Thyroid Normal. No meningeal signs. No neck mass noted. CVS: Normal heart rate and rhythm. Heart sound normal. No murmurs noted. Pulses normal throughout. Respiratory: No respiratory distress. Painless inspiration. Breath sounds normal. bilateral basilar rales. No accessory muscle usage noted or decreased air movement noted. Abdomen: Soft and nontender. Bowel sounds normal in all 4 quadrants. No distention noted. No organomegaly noted. No visible injury noted. Back: No CVA tenderness. Full range of motion noted. Skin: Skin warm and dry. Normal skin color. Normal skin turgor. No rashes/lesions/lacerations noted. Extremities: +2 lower extremity edema. Extremities exhibit normal range of motion. Extremities nontender. Neuro: Oriented X 3. Cranial nerve exam: II-XII are grossly intact No motor deficit. No sensory deficit. Reflexes normal. Course Course Course Narrative: RME: 70-year-old female sent from Dr. Ross for increased shortness of breath, orthopnea, due for ablation 2 weeks. Labs EKG x-ray ordered Reevaluation(s) Reevaluation #1: a 70-year-old female history of CHF and atrial fibrillation came in for worsening symptoms of CHF with mostly exertion. Will be admitted for further cardiology evaluation and diuresis. Time: 19:24 Medications Administered Generic Name Dose Route Start Last Admin Trade Name Freángel PRN Reason Stop Dose Admin Albuterol Sulfate 2 puff 10/19/25 11:39 10/19/25 21:09 Albuterol Sulfate 90 Mcg 8 Gm Inhaler INHALE 2 puff Q4H PRN Administration shortness of breath or wheezing Albuterol/Ipratropium 3 ml 10/19/25 04:06 10/19/25 21:10 Albuterol/Iprat 2.5/0.5mg 3 Ml Ampul.Neb INHALE 3 ml RQ4H WHILE AWAKE PRN Administration Shortness of Breath Amiodarone HCl 200 mg 10/20/25 09:00 10/20/25 08:48 Amiodarone Hcl 200 Mg Tablet PO 200 mg DAILY CANDY Administration Apixaban 5 mg 10/18/25 21:00 10/20/25 08:47 Apixaban 5 Mg Tablet PO 5 mg BID CANDY Administration Atorvastatin Calcium 40 mg 10/19/25 21:00 10/19/25 20:56 Atorvastatin Calcium 40 Mg Tablet PO 40 mg BEDTIME CANDY Administration Fluticasone/Vilanterol 1 puff 10/20/25 09:00 10/20/25 11:14 Fluticasone/Vilanterol 200/25 Blst.W.Dev INHALE Not Given DAILY CANDY Furosemide 40 mg 10/19/25 09:00 10/20/25 08:47 Furosemide 40 Mg/4 Ml Vial IVPUSH 40 mg DAILY CANDY Administration Protocol Magnesium Hydroxide 30 ml 10/18/25 19:25 10/20/25 09:53 Milk Of Magnesia 30 Ml Oral.Susp PO 30 ml DAILY PRN Administration Constipation Metoprolol Succinate 75 mg 10/20/25 09:00 10/20/25 08:48 Metoprolol Succinate Er 25 Mg Tab.Er.24h PO 75 mg DAILY CANDY Administration Protocol Multivitamins/Vitamin C 1 tab 10/19/25 12:00 10/20/25 08:47 Multivitamin Tablet PO 1 tab DAILY CANDY Administration Omeprazole 20 mg 10/19/25 12:00 10/20/25 05:53 Omeprazole 20 Mg Capsule.Dr PO 20 mg DAILY@0630 CANDY Administration Paroxetine HCl 45 mg 10/20/25 09:00 10/20/25 08:48 Paroxetine Hcl 30 Mg Tablet PO 45 mg DAILY CANDY Administration Sodium Chloride 3 ml 10/19/25 00:00 10/20/25 08:48 0.9 % Sodium Chloride Flush 3 Ml Syringe IVFLUSH 3 ml QSHIFT CANDY Administration Valsartan 320 mg 10/19/25 12:00 10/20/25 08:48 Valsartan 320 Mg Tablet PO 320 mg DAILY CANDY Administration Protocol Vitamin D 25 mcg 10/19/25 12:00 10/20/25 08:48 Cholecalciferol (Vitamin D3) 25 Mcg Tablet PO 25 mcg DAILY CANDY Administration Discontinued Medications Generic Name Dose Route Start Last Admin Trade Name Freq PRN Reason Stop Dose Admin Amiodarone HCl 200 mg 10/19/25 09:00 10/19/25 08:35 Amiodarone Hcl 200 Mg Tablet PO 200 mg DAILY CANDY Administration Furosemide 40 mg 10/18/25 20:49 10/18/25 20:56 Furosemide 40 Mg/4 Ml Vial IVPUSH 10/18/25 20:50 40 mg ONCE ONE Administration Protocol Metoprolol Succinate 50 mg 10/19/25 09:00 10/19/25 08:35 Metoprolol Succinate Er 50 Mg Tab.Er.24h PO 50 mg DAILY CANDY Administration Protocol Metoprolol Succinate 25 mg 10/19/25 12:15 10/19/25 12:17 Metoprolol Succinate Er 25 Mg Tab.Er.24h PO 10/19/25 12:16 25 mg ONCE ONE Administration Paroxetine HCl 20 mg 10/19/25 09:00 10/19/25 08:35 Paroxetine Hcl 20 Mg Tablet PO 20 mg DAILY CANDY Administration Medical Decision Making Differential Diagnosis Differential Diagnoses: The differential diagnosis associated with the presentation includes ( ACS, CHF, pneumonia, pneumothorax, pleural effusion, electrolyte derangement, severe anemia.) Admission/Observation Consideration of admission/observation: Escalation of care including admission/observation considered Consult Healthcare Provider Management of the patient was discussed with: Hospitalist ( Dr. Marques ) Lab Data MDM Lab Attestation statement: I reviewed the patient's lab results. 10/19/25 04:21 10/19/25 04:21 Labs: Lab Results 10/18/25 Range/Units 17:26 WBC 7.2 (4.8-10.8) X10*3/uL RBC 5.03 (4.20-5.50) X10*6/uL Hgb 14.8 (12.0-16.0) g/dl Hct 44.1 (37.0-47.0) % MCV 87.7 (80.0-98.0) fL MCH 29.4 (27.0-33.0) pg MCHC 33.6 (31.0-35.0) g/dl RDW 13.5 (11.0-16.0) % Plt Count 268 D (160-400) X10*3/uL MPV 10.6 (9.4-12.3) fL Immature Gran % (Auto) 0.1 (0.0-0.4) % Neut % (Auto) 76.0 H (45-73) % Lymph % (Auto) 16.1 L (20-40) % Boyle % (Auto) 6.7 (2-11) % Eos % (Auto) 0.7 (0-4) % Baso % (Auto) 0.4 (0-2) % Lymph # (Auto) 1.2 (1.2-4.9) X10*3/uL Boyle # (Auto) 0.5 (0.1-1.2) X10*3/uL Eos # (Auto) 0.1 (0.0-0.4) X10*3/uL Baso # (Auto) 0.0 (0.0-0.2) X10*3/uL Abs Immat Gran (auto) 0.01 (0.00-0.03) X10*3/uL Absolute Neuts (auto) 5.5 (2.0-8.3) x10*3/uL Absolute Nucleated RBC 0.000 (0.0-0.012) X10*3/uL Nucleated RBC % (auto) 0.0 (0.0-0.2) /100WBC PT 17.3 H (11.2-13.5) SEC INR 1.4 H (0.9-1.1) APTT 36.0 H (26.7-34.1) SEC Sodium 142 (135-145) mmol/L Potassium 3.6 (3.3-5.1) mmol/L Chloride 107 (96-108) mmol/L Carbon Dioxide 25 (22-29) mmol/L Anion Gap 14 (12-20) BUN 17 H (9-16) mg/dL Creatinine 0.86 (0.5-1.4) mg/dL Estim Creat Clear Calc 79.8 Estimated GFR > 60 Random Glucose 124 H (60-115) mg/dL Calcium 9.0 (8.4-10.2) mg/dL Total Bilirubin 2.6 H (0.0-1.0) mg/dL AST 33 H (5-31) U/L ALT 38 H (0-31) U/L Alkaline Phosphatase 111 (39-117) U/L Troponin I High Sens < 2.7 (<3.5-17.0) ng/L NT-Pro-B Natriuret Pep 4293.3 H (<300) pg/mL Total Protein 6.4 L (6.5-8.0) g/dL Albumin 3.9 (3.5-5.0) g/dL TSH 3.50 (0.32-4.0) uIU/mL Independent Interpretation I performed an independent interpretation of an: Plain X-Ray ( chest:1. No significant change from the recent CT chest 10/09/2025. 2. Moderate cardiomegaly. 3. Layering right effusion tracking into the lateral pleural margin and into the major and minor fissures. There is associated passive parenchymal atelectasis of the adjacent right lung structures. Pneu) Radiology Impression Discussion of test interpretation with radiology: I have reviewed the radiologist's reading. Chronic Conditions Patient?s care impacted by: Hypertension and Other (Chronic AFib, CHF.) Critical Care Time Critical Care Time Critical Care Time: Yes Total Critical Care Time: 60 Attestation: The patient was critically ill with a high probability of imminent or life-threatening deterioration. I spent greater than 30 minutes of discontinuous time evaluating the patient, delivering critical care at the bedside, discussing evaluating data with consultants. Critical care time does not include time spent performing separately billable procedures or teaching. Time spent performing critical care was 60 minutes. Discharge Plan Discharge Clinical Impression: A-fib CHF exacerbation Qualifiers: Heart failure type: unspecified Qualified Code(s): I50.9 - Heart failure, unspecified Patient Disposition: Admitted As Inpatient Discharge Date/Time: 10/19/25 06:12
[2025-10-18 17:30] LABS: MANUAL DIFF FLAG NO
[2025-10-18 17:33] LABS: Hematocrit 44.1 % (37.0-47.0); Hemoglobin 14.8 g/dl (12.0-16.0); Imm Gran Abs Auto 0.01 X10*3/uL (0.00-0.03); Imm Gran Pct Auto 0.1 % (0.0-0.4); Lymphocytes Absolute Auto 1.2 X10*3/uL (1.2-4.9); Mean Corpuscular HGB Conc 33.6 g/dl (31.0-35.0); Mean Corpuscular Hemoglobin 29.4 pg (27.0-33.0); Mean Corpuscular Volume 87.7 fL (80.0-98.0); NRBC Abs Auto 0.000 X10*3/uL (0.0-0.012); NRBC Pct Auto 0.0 /100WBC (0.0-0.2); Platelet Count 268 X10*3/uL (160-400); Red Blood Count 5.03 X10*6/uL (4.20-5.50); White Blood Count 7.2 X10*3/uL (4.8-10.8)
[2025-10-18 17:51] LABS: INTERNATIONAL NORM RATIO 1.4 (0.9-1.1); Prothrombin Time 17.3 SEC (11.2-13.5)
[2025-10-18 17:53] VITALS: PULSE 84; RESP 18
[2025-10-18 17:54] LABS: Partial Thromboplastin Time 36.0 SEC (26.7-34.1)
[2025-10-18 17:55] LABS: Alanine Aminotransferase 38 U/L (0-31); Albumin Level 3.9 g/dL (3.5-5.0); Alkaline Phosphatase 111 U/L (39-117); Anion Gap 14 (12-20); Aspartate Amino Transferase 33 U/L (5-31); Blood Urea Nitrogen 17 mg/dL (9-16); Calcium 9.0 mg/dL (8.4-10.2); Carbon Dioxide 25 mmol/L (22-29); Chloride 107 mmol/L (96-108); Creatinine Clr Calc Pharmacy 79.8; Estimated Glomerular Filt Rate > 60; Potassium 3.6 mmol/L (3.3-5.1); Sodium 142 mmol/L (135-145); Total Protein 6.4 g/dL (6.5-8.0); Troponin-I High Sensitivity < 2.7 ng/L (<3.5-17.0)
[2025-10-18 18:01] VITALS: BP 143/89; PULSE 93; RESP 16; TEMP 36.6; O2SAT 97
--- NOTE | 2025-10-18 19:28 | PM.IMHP ---
History of Present Illness Date of Service: 10/18/25 Chief Complaint: sob 70-year-old female with past medical history of history, history, AFib, CHF, restrictive lung disease/asthma, anxiety, depression; presented to the hospital today with a chief complaint of shortness of breath. Patient reports over the past few weeks he has been having shortness of breath especially on exertion. Denies any cough or sputum production. Reports having leg swelling. Mentions she takes Lasix at home. When she spoke to her coverer asked her to go to the ER for further evaluation. Patient mentioned that her AFib is under control and is being scheduled for ablation and of October. Denies any chest pain or palpitations. Denies any sick contacts. Denies any orthopnea or PND. Review of all other systems is negative except mentioned above ER course: Per ER team, patient noted peripheral edema; chest x-ray showed layering pleural effusion. Concern for possible acute on chronic CHF. Given Lasix. [facility] Medical History Restrictive lung disease Bilateral cataracts History of cardioversion GERD (gastroesophageal reflux disease) Bronchitis Asthma exacerbation PAF (paroxysmal atrial fibrillation) MDD (major depressive disorder) HTN (hypertension) Post covid-19 condition, unspecified Morbid obesity JIMBO on CPAP Bronchial asthma Surgical History History of cardioversion Anal fistula Hx of laparoscopic gastric banding History of hysterectomy for cancer H/O umbilical hernia repair History of cholecystectomy H/O colonoscopy Social History Household Members: Spouse Housing: House Are you a primary care team coordinator scheduler to a significant other at home: No Do you presently have visiting nurse or other home services: No Alcohol intake: never Patient Tobacco Use Status: Former Tobacco user Tobacco use type: Cigarette Years Smoked: 25 Smoked in Last 30 Days: No Second Hand Smoke Exposure: No Use of substances other than those prescribed or required for medical reasons: No Advance Directives: Yes Advance Directives on File: Yes Advance Directives Date on File: 12/23/22 Do you have a plan to hurt others: No Plan Nutrition Risks: No Nutritional Risk service: No Current occupational status: unemployed Meds Allergies Allergy/AdvReac Type Severity Reaction Status Date / Time adhesive tape (ADHESIVE TAPE) Allergy Intermediate BLISTERS Verified 10/18/25 14:09 Home Medications ?Medication ?Instructions ?Recorded ?Confirmed ?Last Taken ?Type paroxetine HCl 30 mg tablet 45 mg PO DAILY 10/01/20 10/18/25 10/18/25 History mecobalamin (vitamin B12) 5,000 5,000 mcg PO DAILY 08/06/22 10/18/25 10/18/25 History mcg disintegrating tablet rosuvastatin 10 mg tablet 10 mg PO BEDTIME 08/06/22 10/18/25 10/18/25 History omeprazole 20 mg capsule,delayed 20 mg PO DAILY@0630 10/14/22 10/18/25 10/18/25 History release amiodarone 200 mg tablet 200 mg PO DAILY 07/12/25 10/18/25 10/18/25 History semaglutide 1 mg/dose (4 mg/3 mL) 1 mg subcut FR 07/12/25 10/18/25 10/13/25 History subcutaneous pen injector (Ozempic) Physical Exam Vital Signs and Narrative: Vital Signs: Last Vital Signs Temp 97.9 F 10/18/25 18:01 Pulse 93 10/18/25 18:01 Resp 16 10/18/25 18:01 BP 143/89 H 10/18/25 18:01 Pulse Ox 97 10/18/25 18:01 O2 Del Method Room Air 10/18/25 18:01 BMI result Body Mass Index 51.6 Gen: Appears be in no acute distress HEENT: NCAT, Moist mucosa. Pulmonary: Fine crackles present CVS: Normal S1-S2 Abdomen: BS+, Soft, Nontender Extremities: Warm well perfused; mild pedal edema present Neuro: Alert and awake. Results Labs 10/19/25 04:21 10/19/25 04:21 Labs: Laboratory Results - last 24 hr 10/18/25 17:26 MCV 87.7 MCH 29.4 MCHC 33.6 RDW 13.5 Plt Count 268 D MPV 10.6 Immature Gran % (Auto) 0.1 Neut % (Auto) 76.0 H Lymph % (Auto) 16.1 L [place] % (Auto) 6.7 Eos % (Auto) 0.7 Baso % (Auto) 0.4 Lymph # (Auto) 1.2 [place] # (Auto) 0.5 Eos # (Auto) 0.1 Baso # (Auto) 0.0 Abs Immat Gran (auto) 0.01 Absolute Neuts (auto) 5.5 Absolute Nucleated RBC 0.000 Nucleated RBC % (auto) 0.0 PT 17.3 H INR 1.4 H APTT 36.0 H Anion Gap 14 Estim Creat Clear Calc 79.8 Estimated GFR > 60 Random Glucose 124 H Calcium 9.0 Total Bilirubin 2.6 H AST 33 H ALT 38 H Alkaline Phosphatase 111 Troponin I High Sens < 2.7 NT-Pro-B Natriuret Pep 4293.3 H Total Protein 6.4 L Albumin 3.9 TSH 3.50 Imaging Radiologist's Impressions: Impressions Chest X-Ray 10/18/25 14:40 IMPRESSION: 1. No significant change from the recent CT chest 10/09/2025. 2. Moderate cardiomegaly. 3. Layering right effusion tracking into the lateral pleural margin and into the major and minor fissures. There is associated passive parenchymal atelectasis of the adjacent right lung structures. Pneumonia cannot be excluded given the appearance in the appropriate clinical context. 4. There is a tiny left effusion. The left lung is otherwise clear. Electronically signed by: Taiwo Hoffman MD 10/18/2025 03:00 PM [facility] [place] Assessment and Plan (1) CHF exacerbation: Qualifiers: Heart failure type: unspecified Qualified Code(s): I50.9 - Heart failure, unspecified Status: Acute Plan 70-year-old female with past medical history of history, history, AFib, CHF, restrictive lung disease/asthma, anxiety, depression; presented to the hospital today with a chief complaint of shortness of breath. Noted to be in acute on chronic CHF. Acute on chronic HFrEF: Echo-May 2025 showed EF of 45-50%. Mild LVH. Dilated left atrium. Daily weights and I's and o's Lasix IV daily Cardiology follow-up Telemetry AFib: Rate controlled. Continue home amiodarone, Eliquis , metoprolol Hypertension: Resume home valsartan eventually Asthma: Stable DVT prophylaxis: Lovenox Code status: Full code Quality Stroke Does the patient have a stroke diagnosis?: No VTE Prior VTE?: No VTE Risk Level:: Medical - moderate - high VTE Device Contraindication: Treatment Not Indicated VTE Drug Contraindication: N/A - Med Ordered
--- NOTE | 2025-10-18 20:49 | PC.NURSE ---
hospitalist at bedside. made aware patient has not received IV Lasix today and order is in to start tomorrow morning. provider gave verbal order for one time dose of Lasix 40 mg IV to be ordered now. ordered placed and will administer to patient.
[2025-10-18 20:55] VITALS: BP 136/100; PULSE 89
[2025-10-18 20:56] VITALS: BP 136/100
[2025-10-18] MEDS: Furosemide 40 MG/4 ML VIAL IVPUSH (20:56)
[2025-10-18 22:21] VITALS: BP 138/101; PULSE 97; RESP 20; TEMP 36.4; O2SAT 93
--- NOTE | 2025-10-18 22:38 | PHA.MEDREC ---
Pharmacy Consult ? Medication Reconciliation Pharmacy has completed the medication reconciliation. Spoke to patient to confirm medication list. Patient verified that she takes metoprolol ER 75 mg daily, paroxetine 45 mg daily, ozempic 1 mg on fridays and she is still taking rosuvastatin 10 mg at bedtime (even though last fill was on 04/01/25 for 90 day supply). Last dose of medications was this morning 10/18/25.
[2025-10-19] VITALS (13 sets, daily range): BP systolic 123–162; BP diastolic 75–96; PULSE 77–129; RESP 10–22; TEMP 36.2–36.6; O2SAT 93–97; BMI 51.8
[2025-10-19] MEDS: 0.9 % Sodium Chloride Flush 3 ML SYRINGE IVFLUSH ×4 (00:53→20:57)
--- NOTE | 2025-10-19 04:07 | PC.NURSE ---
Addendum entered by Renate Desai 10/19/25 05:08: Pt also reports that she wears CPAP at night. Also included in [place] message to Dr. Gonzalez, hospitalist. Original Note: Pt reporting shortness of breath, states she uses an albuterol inhaler at home when she feels like this. Hospitalist contacted for orders. plan for albuterol neb at this time. respiratory contacted.
[2025-10-19] MEDS: Albuterol/Iprat 2.5/0.5MG 3 ML AMPUL.NEB INHALE ×3 (04:35→21:10)
[2025-10-19 04:39] LABS: MANUAL DIFF FLAG NO
[2025-10-19 04:41] LABS: Hematocrit 42.9 % (37.0-47.0); Hemoglobin 14.3 g/dl (12.0-16.0); Imm Gran Abs Auto 0.02 X10*3/uL (0.00-0.03); Imm Gran Pct Auto 0.3 % (0.0-0.4); Lymphocytes Absolute Auto 1.6 X10*3/uL (1.2-4.9); Mean Corpuscular HGB Conc 33.3 g/dl (31.0-35.0); Mean Corpuscular Hemoglobin 28.9 pg (27.0-33.0); Mean Corpuscular Volume 86.8 fL (80.0-98.0); NRBC Abs Auto 0.000 X10*3/uL (0.0-0.012); NRBC Pct Auto 0.0 /100WBC (0.0-0.2); Platelet Count 245 X10*3/uL (160-400); Red Blood Count 4.94 X10*6/uL (4.20-5.50); White Blood Count 7.3 X10*3/uL (4.8-10.8)
[2025-10-19 04:54] LABS: Alanine Aminotransferase 34 U/L (0-31); Albumin Level 3.8 g/dL (3.5-5.0); Alkaline Phosphatase 106 U/L (39-117); Anion Gap 15 (12-20); Aspartate Amino Transferase 25 U/L (5-31); Blood Urea Nitrogen 18 mg/dL (9-16); Calcium 9.0 mg/dL (8.4-10.2); Carbon Dioxide 25 mmol/L (22-29); Chloride 105 mmol/L (96-108); Creatinine Clr Calc Pharmacy 85.9; Estimated Glomerular Filt Rate > 60; Potassium 3.7 mmol/L (3.3-5.1); Sodium 141 mmol/L (135-145); Total Protein 6.2 g/dL (6.5-8.0)
--- NOTE | 2025-10-19 05:23 | HO.NURTONUR ---
Pt is a 70 Y.O. pleasant female from home. Was advised to come in from Dr. Cliffrod's office for further evaluation of shortness of breath, increased work of breathing with exertion for several weeks. Has been having to sleep upright with additional pillows. Hx of CHF-takes lasix daily +2 edema noted to bilateral lower extremities Chronic Afib on Eliquis-due for Ablation in 2 weeks--Rate controlled in ED in the 80's Hx sleep apnea wears CPAP at night-did message hospitalist about this CXR: right lung shows small to moderate sized pleural effusion, left-tiny pleural effusion Admission dx: CHF exacerbation-plan for cardiology eval and diuresis on Pure wick Alert and oriented x4 #20 PIV left AC, draws great and flushes w/o difficulty or pain
--- NOTE | 2025-10-19 07:43 | HO.PM.IMPN ---
Subjective Subjective Date of Service: 10/19/25 Interval History: F/u on heart failure exacerbation breathing is better Physical Exam Vital Signs: Vital Signs: Last Vital Signs Temp 97.1 F 10/19/25 07:08 Pulse 104 H 10/19/25 07:08 Resp 16 10/19/25 07:08 BP 162/90 H 10/19/25 07:08 Pulse Ox 95 10/19/25 07:08 O2 Del Method Room Air 10/19/25 07:08 BMI result Body Mass Index 51.8 Objective Data Active Medications Acetaminophen (Acetaminophen 325 Mg Tablet) 650 mg PO Q6H PRN PRN Reason: Pain, Mild 1-3,fever,headache Albuterol/Ipratropium (Albuterol/Iprat 2.5/0.5mg 3 Ml Ampul.Neb) 3 ml INHALE RQ4H WHILE AWAKE PRN PRN Reason: Shortness of Breath Last Admin: 10/19/25 04:35 Dose: 3 ml Documented By: SIOBHAN Amiodarone HCl (Amiodarone Hcl 200 Mg Tablet) 200 mg PO DAILY [facility] Apixaban (Apixaban 5 Mg Tablet) 5 mg PO BID [facility] Last Admin: 10/18/25 20:48 Dose: 5 mg Documented By: COOPEB Calcium Carbonate (Calcium Carbonate 750 Mg Tab.Chew) 750 mg PO Q4H PRN PRN Reason: Heartburn Furosemide (Furosemide 40 Mg/4 Ml Vial) 40 mg IVPUSH DAILY [facility]; Protocol Magnesium Hydroxide (Milk Of Magnesia 30 Ml Oral.Susp) 30 ml PO DAILY PRN PRN Reason: Constipation Melatonin (Melatonin 3 Mg Tablet) 6 mg PO BEDTIME PRN PRN Reason: Insomnia Metoprolol Succinate (Metoprolol Succinate Er 50 Mg Tab.Er.24h) 50 mg PO DAILY [facility]; Protocol Paroxetine HCl (Paroxetine Hcl 20 Mg Tablet) 20 mg PO DAILY [facility] Sodium Chloride (0.9 % Sodium Chloride Flush 3 Ml Syringe) 3 ml IVFLUSH QSHIFT [facility] Last Admin: 10/19/25 00:53 Dose: 3 ml Documented By: CALEB Labs 10/19/25 04:21 10/19/25 04:21 Labs: Laboratory Results - last 24 hr 10/18/25 10/19/25 17:26 04:21 MCV 87.7 86.8 MCH 29.4 28.9 MCHC 33.6 33.3 RDW 13.5 13.4 Plt Count 268 D 245 MPV 10.6 10.8 Immature Gran % (Auto) 0.1 0.3 Neut % (Auto) 76.0 H 65.4 Lymph % (Auto) 16.1 L 22.3 [place] % (Auto) 6.7 10.2 Eos % (Auto) 0.7 1.4 Baso % (Auto) 0.4 0.4 Lymph # (Auto) 1.2 1.6 [place] # (Auto) 0.5 0.8 Eos # (Auto) 0.1 0.1 Baso # (Auto) 0.0 0.0 Abs Immat Gran (auto) 0.01 0.02 Absolute Neuts (auto) 5.5 4.8 Absolute Nucleated RBC 0.000 0.000 Nucleated RBC % (auto) 0.0 0.0 PT 17.3 H INR 1.4 H APTT 36.0 H Anion Gap 14 15 Estim Creat Clear Calc 79.8 85.9 Estimated GFR > 60 > 60 Random Glucose 124 H 109 Calcium 9.0 9.0 Total Bilirubin 2.6 H 2.1 H AST 33 H 25 ALT 38 H 34 H Alkaline Phosphatase 111 106 Troponin I High Sens < 2.7 NT-Pro-B Natriuret Pep 4293.3 H Total Protein 6.4 L 6.2 L Albumin 3.9 3.8 TSH 3.50 Assessment and Plan (1) CHF exacerbation: Status: Acute (2) A-fib: Status: Acute Plan 70-year-old female with past medical history of history, history, AFib, CHF, restrictive lung disease/asthma, anxiety, depression; presented to the hospital today with a chief complaint of shortness of breath. Noted to be in acute on chronic CHF. Acute on chronic HFrEF: Echo-May 2025 showed EF of 45-50%. Mild LVH. Dilated left atrium. Daily weights and I's and o's Lasix IV daily Cardiology follow-up Telemetry AFib: Rate controlled. Continue home amiodarone, Eliquis , metoprolol Hypertension: Resume home valsartan eventually Asthma: Stable DVT prophylaxis: Lovenox Code status: Full code Quality Stroke Does the patient have a stroke diagnosis?: No VTE Prior VTE?: No VTE Risk Level:: Medical - moderate - high VTE Device Contraindication: Treatment Not Indicated VTE Drug Contraindication: N/A - Med Ordered
[2025-10-19] MEDS: Metoprolol Succinate ER 50 MG TAB.ER.24H PO (08:35)
[2025-10-19] MEDS: Furosemide 40 MG/4 ML VIAL IVPUSH (08:35)
[2025-10-19] MEDS: Milk of Magnesia 30 ML ORAL.SUSP PO (08:43)
--- NOTE | 2025-10-19 09:11 | MHC.CM.PN ---
CM addressed IMM with Patient. Patient lives in a house with her /HCP/Naren and she uses a cane and walker. Home/self care vs new VNA is the tentative plan and CM has initiated and will follow for dc planning.PCP is Dr. Ang Bernstein.
--- NOTE | 2025-10-19 09:53 | PM.CNCAR ---
History of Present Illness History of Present Illness Date of Service: 10/19/25 Chief complaint: chf Narrative: This is a cardiology consultation regarding atrial fibrillation/congestive heart failure. She was seen by her primary surgeon/president yesterday. According to his notes, history of atrial fibrillation with failed cardioversions. She has seen EP and there is a plan for an ablation coming up very soon. In the interim, she has been admitted for congestive heart failure. She has some shortness of breath with activity but it has been getting worse recently and it was felt that she was not acute decompensated heart failure and hence referred to the ER for admission. She has been put on diuretics and she states she is feeling better. Per notes, had cardioversion in May of 2025 she was unsuccessful. There was another cardioversion in August 2025 which was also unsuccessful. She is on amiodarone. Review of Systems Review of Systems: Yes all other systems are reviewed and are negative Constitutional: Constitutional: Reports as per HPI and Reports no additional constitutional complaints Eyes: Eyes: Reports as per HPI and Denies no additional eye complaints ENT: Denies system reviewed and no additional complaints, except as documented and Reports as per HPI Cardiovascular: Cardiovascular: Reports as per HPI, Reports no additional cardiovascular complaints, Denies acrocyanosis, Denies cool extremities, Denies chest pain, Denies leg edema, Denies lightheadedness, Denies palpitations and Reports dyspnea Respiratory: Respiratory: Reports as per HPI, Denies no additional respiratory complaints and Reports dyspnea Gastrointestinal: Gastrointestinal: Reports as per HPI and Denies no additional gastrointestinal complaints Genitourinary: Genitourinary: Reports as per HPI Musculoskeletal: Musculoskeletal: Reports no additional musculoskeletal complaints and Reports as per HPI Integumentary/Breasts: Skin/Breast: Reports system reviewed and no additional complaints, except as docu Neurologic: Reports system reviewed and no additional complaints, except as documented and Reports as per HPI Psychiatric: Psychiatric: Reports no additional psychiatric complaints and Reports as per HPI Endocrine: Endocrine: Reports no additional endocrine complaints, Reports as per HPI and Denies palpitations Hematologic/Lymphatic: Hematologic/Lymphatic: Reports no additional hematologic/lymphatic complaints and Reports as per HPI Allergic/Immunologic: Allergic/Immunologic: Reports no additional allergic/immunologic complaints and Reports as per HPI [facility] Past Medical History Medical History Restrictive lung disease Bilateral cataracts History of cardioversion GERD (gastroesophageal reflux disease) Bronchitis Asthma exacerbation PAF (paroxysmal atrial fibrillation) MDD (major depressive disorder) HTN (hypertension) Post covid-19 condition, unspecified Morbid obesity JIMBO on CPAP Bronchial asthma Family History Pertinent family history: No pertinent family history Surgical History Surgical History History of cardioversion Anal fistula Hx of laparoscopic gastric banding History of hysterectomy for cancer H/O umbilical hernia repair History of cholecystectomy H/O colonoscopy Social History Social History Household Members: Spouse Housing: House Are you a primary resident care manager rn to a significant other at home: No Do you presently have visiting nurse or other home services: No Alcohol intake: never Patient Tobacco Use Status: Former Tobacco user Tobacco use type: Cigarette Years Smoked: 25 Second Hand Smoke Exposure: No Advance Directives Date on File: 12/23/22 service: No Current occupational status: unemployed Meds Allergies Allergy/AdvReac Type Severity Reaction Status Date / Time adhesive tape (ADHESIVE TAPE) Allergy Intermediate BLISTERS Verified 10/18/25 14:09 Active Medications: Current Medications Acetaminophen (Acetaminophen 325 Mg Tablet) 650 mg PO Q6H PRN PRN Reason: Pain, Mild 1-3,fever,headache Albuterol/Ipratropium (Albuterol/Iprat 2.5/0.5mg 3 Ml Ampul.Neb) 3 ml INHALE RQ4H WHILE AWAKE PRN PRN Reason: Shortness of Breath Last Admin: 10/19/25 04:35 Dose: 3 ml Amiodarone HCl (Amiodarone Hcl 200 Mg Tablet) 200 mg PO DAILY [facility] Last Admin: 10/19/25 08:35 Dose: 200 mg Apixaban (Apixaban 5 Mg Tablet) 5 mg PO BID [facility] Last Admin: 10/19/25 08:35 Dose: 5 mg Calcium Carbonate (Calcium Carbonate 750 Mg Tab.Chew) 750 mg PO Q4H PRN PRN Reason: Heartburn Furosemide (Furosemide 40 Mg/4 Ml Vial) 40 mg IVPUSH DAILY [facility]; Protocol Last Admin: 10/19/25 08:35 Dose: 40 mg Magnesium Hydroxide (Milk Of Magnesia 30 Ml Oral.Susp) 30 ml PO DAILY PRN PRN Reason: Constipation Last Admin: 10/19/25 08:43 Dose: 30 ml Melatonin (Melatonin 3 Mg Tablet) 6 mg PO BEDTIME PRN PRN Reason: Insomnia Metoprolol Succinate (Metoprolol Succinate Er 50 Mg Tab.Er.24h) 50 mg PO DAILY [facility]; Protocol Last Admin: 10/19/25 08:35 Dose: 50 mg Paroxetine HCl (Paroxetine Hcl 20 Mg Tablet) 20 mg PO DAILY [facility] Last Admin: 10/19/25 08:35 Dose: 20 mg Sodium Chloride (0.9 % Sodium Chloride Flush 3 Ml Syringe) 3 ml IVFLUSH QSHIFT [facility] Last Admin: 10/19/25 08:36 Dose: 3 ml Home Medications ?Medication ?Instructions ?Recorded ?Confirmed ?Last Taken ?Type paroxetine HCl 30 mg tablet 45 mg PO DAILY 10/01/20 10/18/25 10/18/25 History mecobalamin (vitamin B12) 5,000 5,000 mcg PO DAILY 08/06/22 10/18/25 10/18/25 History mcg disintegrating tablet rosuvastatin 10 mg tablet 10 mg PO BEDTIME 08/06/22 10/18/25 10/18/25 History omeprazole 20 mg capsule,delayed 20 mg PO DAILY@0630 10/14/22 10/18/25 10/18/25 History release amiodarone 200 mg tablet 200 mg PO DAILY 07/12/25 10/18/25 10/18/25 History semaglutide 1 mg/dose (4 mg/3 mL) 1 mg subcut FR 07/12/25 10/18/25 10/13/25 History subcutaneous pen injector (Ozempic) Physical Exam Vital Signs: Vital Signs: Last Vital Signs Temp 97.1 F 10/19/25 07:08 Pulse 104 H 10/19/25 08:35 Resp 16 10/19/25 07:08 BP 162/90 H 10/19/25 08:35 Pulse Ox 95 10/19/25 07:08 O2 Del Method Room Air 10/19/25 07:08 BMI result Body Mass Index 51.8 Const: General: comfortable and no acute distress Orientation/consciousness: patient oriented x3 HEENT: Other: Unremarkable Head: Yes normal to inspection Neck: Neck: Yes normal visual inspection Chest: Chest palpation & inspection: normal inspection of the chest Resp: Other: Minimal crackles Cardio: Palpation: normal PMI Heart sounds: S1 normal heart sound present, S2 normal heart sound present, no gallops, no murmurs and no rubs GI: Palpation (GI): Soft to palpation Back/Spine/Pelvis: Other: unremarkable Skin: General skin exam: no rashes or lesions noted Neuro: General: patient oriented x3 Extrem: General: Yes normal to inspection Psych: Mental Status: mental status grossly normal Objective Labs and Meds 10/19/25 04:21 10/19/25 04:21 Lab results: Laboratory Results - last 24 hr 10/18/25 10/19/25 17:26 04:21 WBC 7.2 7.3 RBC 5.03 4.94 Hgb 14.8 14.3 Hct 44.1 42.9 MCV 87.7 86.8 MCH 29.4 28.9 MCHC 33.6 33.3 RDW 13.5 13.4 Plt Count 268 D 245 MPV 10.6 10.8 Immature Gran % (Auto) 0.1 0.3 Neut % (Auto) 76.0 H 65.4 Lymph % (Auto) 16.1 L 22.3 [place] % (Auto) 6.7 10.2 Eos % (Auto) 0.7 1.4 Baso % (Auto) 0.4 0.4 Lymph # (Auto) 1.2 1.6 [place] # (Auto) 0.5 0.8 Eos # (Auto) 0.1 0.1 Baso # (Auto) 0.0 0.0 Abs Immat Gran (auto) 0.01 0.02 Absolute Neuts (auto) 5.5 4.8 Absolute Nucleated RBC 0.000 0.000 Nucleated RBC % (auto) 0.0 0.0 PT 17.3 H INR 1.4 H APTT 36.0 H Sodium 142 141 Potassium 3.6 3.7 Chloride 107 105 Carbon Dioxide 25 25 Anion Gap 14 15 BUN 17 H 18 H Creatinine 0.86 0.80 Estim Creat Clear Calc 79.8 85.9 Estimated GFR > 60 > 60 Random Glucose 124 H 109 Calcium 9.0 9.0 Total Bilirubin 2.6 H 2.1 H AST 33 H 25 ALT 38 H 34 H Alkaline Phosphatase 111 106 Troponin I High Sens < 2.7 NT-Pro-B Natriuret Pep 4293.3 H Total Protein 6.4 L 6.2 L Albumin 3.9 3.8 TSH 3.50 ECG Interpretation: EKG with atrial fibrillation at a rate of 97/Min; cannot exclude old septal infarct; nonspecific ST-T changes. Imaging Radiologist's impression: Impressions Chest X-Ray 10/18/25 14:40 IMPRESSION: 1. No significant change from the recent CT chest 10/09/2025. 2. Moderate cardiomegaly. 3. Layering right effusion tracking into the lateral pleural margin and into the major and minor fissures. There is associated passive parenchymal atelectasis of the adjacent right lung structures. Pneumonia cannot be excluded given the appearance in the appropriate clinical context. 4. There is a tiny left effusion. The left lung is otherwise clear. Electronically signed by: Taiwo Hoffman MD 10/18/2025 03:00 PM [facility] Assessment and Plan (1) Acute on chronic diastolic (congestive) heart failure: Status: Acute (2) Atrial fibrillation with rapid ventricular response: Status: Acute Plan Echocardiogram from June-LVEF 51%. Left atrium severely dilated. Moderate mitral annular calcification with mild regurgitation. Ascending aortic size 4.1 cm. NT pro BNP is 4293. High sensitivity troponin normal. CTA chest from 10/09-cardiomegaly, small right pleural effusion. Follow-up chest x-ray reported have no significant change from CTA. Cannot exclude right-sided pneumonia. Overall, persistent atrial fibrillation and failed multiple cardioversions and awaiting ablation. If she fails pulmonary vein isolation, then we will need AV simona ablation. Any case she already has an ablation date. For the time being, recommend just IV diuretics. She is in atrial fibrillation but the rate is not too fast and just about 100/Min. Also on beta-blockers and continue those doses. There was question of transferred to [facility] for another cardioversion but there is absolutely no bed available and hence we will need to keep her here. I specifically discussed about this issue today. Most likely we will need to just keep the outpatient EP appointment. She agrees with that. Procedures Date of Service Date of Service: 10/19/25
[2025-10-19] MEDS: Metoprolol Succinate ER 25 MG TAB.ER.24H PO (12:17)
[2025-10-20] VITALS (11 sets, daily range): BP systolic 120–139; BP diastolic 65–101; PULSE 73–106; RESP 16–20; TEMP 36.2–36.9; O2SAT 93–98
[2025-10-20] MEDS: Furosemide 40 MG/4 ML VIAL IVPUSH (08:47)
[2025-10-20] MEDS: Metoprolol Succinate ER 25 MG TAB.ER.24H 75 MG PO (08:48)
[2025-10-20] MEDS: 0.9 % Sodium Chloride Flush 3 ML SYRINGE IVFLUSH ×3 (08:48→20:38)
[2025-10-20] MEDS: Milk of Magnesia 30 ML ORAL.SUSP PO (09:53)
--- NOTE | 2025-10-20 10:25 | MHC.CM.PN ---
Per [facility], Patient is not yet medically cleared for dc (IV Diuretics).
--- NOTE | 2025-10-20 11:12 | PM.PNCARD ---
Subjective Subjective Date of Service: 10/20/25 Interval history: Patient states that she is feeling better but still gets short of breath with activity. Review of Systems Review of Systems Yes all other systems are reviewed and are negative Constitutional: Reports as per HPI and Reports no additional constitutional complaints Eyes: Reports as per HPI and Denies no additional eye complaints Denies system reviewed and no additional complaints, except as documented and Reports as per HPI Cardiovascular: Reports as per HPI, Reports no additional cardiovascular complaints, Denies acrocyanosis, Denies cool extremities, Denies chest pain, Denies leg edema, Denies lightheadedness, Denies palpitations and Reports dyspnea Respiratory: Reports as per HPI, Denies no additional respiratory complaints and Reports dyspnea Gastrointestinal: Reports as per HPI and Denies no additional gastrointestinal complaints Genitourinary: Reports as per HPI Musculoskeletal: Reports no additional musculoskeletal complaints and Reports as per HPI Skin/Breast: Reports system reviewed and no additional complaints, except as docu Reports system reviewed and no additional complaints, except as documented and Reports as per HPI Psychiatric: Reports no additional psychiatric complaints and Reports as per HPI Endocrine: Reports no additional endocrine complaints, Reports as per HPI and Denies palpitations Hematologic/Lymphatic: Reports no additional hematologic/lymphatic complaints and Reports as per HPI Allergic/Immunologic: Reports no additional allergic/immunologic complaints and Reports as per HPI Physical Exam Vital Signs: Last Vital Signs Temp 97.8 F 10/20/25 07:42 Pulse 73 10/20/25 08:48 Resp 18 10/20/25 08:03 BP 120/98 H 10/20/25 08:48 Pulse Ox 93 10/20/25 07:42 O2 Del Method BiPAP 10/20/25 07:42 BMI result Body Mass Index 51.8 Const General: comfortable and no acute distress Orientation/consciousness: patient oriented x3 HEENT Other: Unremarkable Head: Yes normal to inspection Neck Neck: Yes normal visual inspection Chest Chest palpation & inspection: normal inspection of the chest Resp Other: Minimal crackles Cardio Palpation: normal PMI Heart sounds: S1 normal heart sound present, S2 normal heart sound present, no gallops, no murmurs and no rubs GI Palpation (GI): Soft to palpation Back/Spine/Pelvis Other: unremarkable Skin General skin exam: no rashes or lesions noted Neuro General: patient oriented x3 Extrem General: Yes normal to inspection Psych Mental Status: mental status grossly normal Objective Labs and Meds 10/19/25 04:21 10/19/25 04:21 Progress Note: A&P Assessment and plan (1) Acute on chronic diastolic (congestive) heart failure: Status: Acute (2) Atrial fibrillation with rapid ventricular response: Status: Acute Plan Echocardiogram from June-LVEF 51%. Left atrium severely dilated. Moderate mitral annular calcification with mild regurgitation. Ascending aortic size 4.1 cm. NT pro BNP is 4293. High sensitivity troponin normal. CTA chest from 10/09-cardiomegaly, small right pleural effusion. Follow-up chest x-ray reported have no significant change from CTA. Cannot exclude right-sided pneumonia. Overall, persistent atrial fibrillation and failed multiple cardioversions and awaiting ablation. If she fails pulmonary vein isolation, then will need AV simona ablation. For the current time, continue IV diuretics for another day. She is in atrial fibrillation but rate is reasonable and not too fast. She is already on beta-blockers and continue that. Also on Amiodarone. Await EP appointment for ablation later this month. If she feels short of breath with activity, may need to limit what she does at least till the ablation date. She has already failed multiple cardioversions and unlikely that it will help if repeated. Transferred to [facility] is not an option either as the wait time is extremely long. We discussed about these today. Time Spent With Patient Time: Total time managing care of this patient today ____ minutes. Progress Note: Quality Stroke Does the patient have a stroke diagnosis?: No Procedures Date of Service Date of Service: 10/20/25
--- NOTE | 2025-10-20 12:10 | HO.PM.IMPN ---
Subjective Subjective Date of Service: 10/20/25 Interval History: F/u on heart failure exacerbation breathing is better, less swelling in the legs Physical Exam Vital Signs: Vital Signs: Last Vital Signs Temp 97.1 F 10/20/25 11:49 Pulse 85 10/20/25 11:49 Resp 20 10/20/25 11:49 BP 122/88 10/20/25 11:49 Pulse Ox 95 10/20/25 11:49 O2 Del Method Room Air 10/20/25 11:49 BMI result Body Mass Index 51.8 Const: Other: General: AO X 3, no acute distress Resp: CTA bilateral CVS: S1,S2,RRR, trace leg edema GI: +BS, NT, no distention Skin: No rash Neuro: motor grossly intact Psych: appropriate affect Objective Data Active Medications Acetaminophen (Acetaminophen 325 Mg Tablet) 650 mg PO Q6H PRN PRN Reason: Pain, Mild 1-3,fever,headache Albuterol Sulfate (Albuterol Sulfate 90 Mcg 8 Gm Inhaler) 2 puff INHALE Q4H PRN PRN Reason: shortness of breath or wheezing Last Admin: 10/19/25 21:09 Dose: 2 puff Documented By: NIC Albuterol/Ipratropium (Albuterol/Iprat 2.5/0.5mg 3 Ml Ampul.Neb) 3 ml INHALE RQ4H WHILE AWAKE PRN PRN Reason: Shortness of Breath Last Admin: 10/19/25 21:10 Dose: 3 ml Documented By: NIC Amiodarone HCl (Amiodarone Hcl 200 Mg Tablet) 200 mg PO DAILY [facility] Last Admin: 10/20/25 08:48 Dose: 200 mg Documented By: ZACKARY Apixaban (Apixaban 5 Mg Tablet) 5 mg PO BID [facility] Last Admin: 10/20/25 08:47 Dose: 5 mg Documented By: ZACKARY Atorvastatin Calcium (Atorvastatin Calcium 40 Mg Tablet) 40 mg PO BEDTIME [facility] Last Admin: 10/19/25 20:56 Dose: 40 mg Documented By: LEIGHTON Calcium Carbonate (Calcium Carbonate 750 Mg Tab.Chew) 750 mg PO Q4H PRN PRN Reason: Heartburn Fluticasone/Vilanterol (Fluticasone/Vilanterol 200/25 Blst.W.Dev) 1 puff INHALE DAILY [facility] Last Admin: 10/20/25 11:14 Dose: Not Given Documented By: HEIDI Non-Admin Reason: pharmacy called for med Furosemide (Furosemide 40 Mg/4 Ml Vial) 40 mg IVPUSH DAILY [facility]; Protocol Last Admin: 10/20/25 08:47 Dose: 40 mg Documented By: ZACKARY Magnesium Hydroxide (Milk Of Magnesia 30 Ml Oral.Susp) 30 ml PO DAILY PRN PRN Reason: Constipation Last Admin: 10/20/25 09:53 Dose: 30 ml Documented By: ZACKARY Melatonin (Melatonin 3 Mg Tablet) 6 mg PO BEDTIME PRN PRN Reason: Insomnia Metoprolol Succinate (Metoprolol Succinate Er 25 Mg Tab.Er.24h) 75 mg PO DAILY [facility]; Protocol Last Admin: 10/20/25 08:48 Dose: 75 mg Documented By: ZACKARY Multivitamins/Vitamin C (Multivitamin Tablet) 1 tab PO DAILY [facility] Last Admin: 10/20/25 08:47 Dose: 1 tab Documented By: ZACKARY Omeprazole (Omeprazole 20 Mg Capsule.Dr) 20 mg PO DAILY@0630 [facility] Last Admin: 10/20/25 05:53 Dose: 20 mg Documented By: LEIGHTON Paroxetine HCl (Paroxetine Hcl 30 Mg Tablet) 45 mg PO DAILY [facility] Last Admin: 10/20/25 08:48 Dose: 45 mg Documented By: SRINIVASAING Sodium Chloride (0.9 % Sodium Chloride Flush 3 Ml Syringe) [address] [facility] Last Admin: 10/20/25 08:48 Dose: 3 ml Documented By: ZACKARY Valsartan (Valsartan 320 Mg Tablet) 320 mg PO DAILY [facility]; Protocol Last Admin: 10/20/25 08:48 Dose: 320 mg Documented By: SRINIVASAING Vitamin D (Cholecalciferol (Vitamin D3) 25 Mcg Tablet) 25 mcg PO DAILY [facility] Last Admin: 10/20/25 08:48 Dose: 25 mcg Documented By: ZACKARY Labs 10/19/25 04:21 10/19/25 04:21 Labs: Laboratory Results - last 24 hr 10/18/25 10/19/25 17:26 04:21 MCV 87.7 86.8 MCH 29.4 28.9 MCHC 33.6 33.3 RDW 13.5 13.4 Plt Count 268 D 245 MPV 10.6 10.8 Immature Gran % (Auto) 0.1 0.3 Neut % (Auto) 76.0 H 65.4 Lymph % (Auto) 16.1 L 22.3 [place] % (Auto) 6.7 10.2 Eos % (Auto) 0.7 1.4 Baso % (Auto) 0.4 0.4 Lymph # (Auto) 1.2 1.6 [place] # (Auto) 0.5 0.8 Eos # (Auto) 0.1 0.1 Baso # (Auto) 0.0 0.0 Abs Immat Gran (auto) 0.01 0.02 Absolute Neuts (auto) 5.5 4.8 Absolute Nucleated RBC 0.000 0.000 Nucleated RBC % (auto) 0.0 0.0 PT 17.3 H INR 1.4 H APTT 36.0 H Anion Gap 14 15 Estim Creat Clear Calc 79.8 85.9 Estimated GFR > 60 > 60 Random Glucose 124 H 109 Calcium 9.0 9.0 Total Bilirubin 2.6 H 2.1 H AST 33 H 25 ALT 38 H 34 H Alkaline Phosphatase 111 106 Troponin I High Sens < 2.7 NT-Pro-B Natriuret Pep 4293.3 H Total Protein 6.4 L 6.2 L Albumin 3.9 3.8 TSH 3.50 Assessment and Plan (1) CHF exacerbation: Status: Acute (2) A-fib: Status: Acute Plan 70-year-old female with past medical history of history, history, AFib, CHF, restrictive lung disease/asthma, anxiety, depression; presented to the hospital today with a chief complaint of shortness of breath. Noted to be in acute on chronic CHF. Acute on chronic HFrEF: Echo-May 2025 showed EF of 45-50%. Mild LVH. Dilated left atrium. Daily weights and I's and o's negative 2555 Lasix IV for one more day Cardiology follow-up Telemetry AFib: Rate controlled. Continue home amiodarone, Eliquis , metoprolol Hypertension: Resume home valsartan eventually Asthma: Stable DVT prophylaxis: Lovenox Code status: Full code Quality Stroke Does the patient have a stroke diagnosis?: No VTE Prior VTE?: No VTE Risk Level:: Medical - moderate - high VTE Device Contraindication: Treatment Not Indicated VTE Drug Contraindication: N/A - Med Ordered
[2025-10-21 00:42] VITALS: PULSE 93; RESP 20; O2SAT 94
[2025-10-21 04:00] VITALS: BP 141/95; PULSE 87; RESP 20; TEMP 36.3; O2SAT 97
[2025-10-21 05:00] VITALS: PULSE 92; RESP 20; O2SAT 96
[2025-10-21] MEDS: Fluticasone/Vilanterol 200/25 BLST.W.DEV 1 PUFF INHALE (07:22)
[2025-10-21 07:25] VITALS: PULSE 84; RESP 20; O2SAT 92
[2025-10-21 07:40] VITALS: BP 138/100; PULSE 109; RESP 20; TEMP 36.6; O2SAT 97
[2025-10-21] MEDS: Metoprolol Succinate ER 25 MG TAB.ER.24H 75 MG PO (07:56)
[2025-10-21] MEDS: Furosemide 40 MG/4 ML VIAL IVPUSH (07:57)
[2025-10-21] MEDS: Milk of Magnesia 30 ML ORAL.SUSP PO (07:57)
[2025-10-21] MEDS: 0.9 % Sodium Chloride Flush 3 ML SYRINGE IVFLUSH (08:00)
[2025-10-21 08:56] LABS: Anion Gap 13 (12-20); Blood Urea Nitrogen 18 mg/dL (9-16); Calcium 9.2 mg/dL (8.4-10.2); Carbon Dioxide 29 mmol/L (22-29); Chloride 105 mmol/L (96-108); Creatinine Clr Calc Pharmacy 88.1; Estimated Glomerular Filt Rate > 60; Potassium 3.7 mmol/L (3.3-5.1); Sodium 143 mmol/L (135-145)
[2025-10-21 09:03] LABS: NT Pro B Type Natriuretic Pept 3036.0 pg/mL (<300)
--- NOTE | 2025-10-21 09:25 | P.DS_ITS ---
DS: Providers Provider Date of Service: 10/21/25 Date of admission: 10/18/25 19:25 Date of discharge: 10/21/25 Primary care physician: Ang Bernstein MD Consults: 10/18/25 19:25 Consult to Cardiology Routine Consulting Provider: [facility] Reason for consultation: chf DS: Diagnosis Discharge Diagnosis (1) CHF exacerbation: Status: Acute (2) A-fib: Status: Acute DS: Summary Hospital Course Hospital Course: admitting Chief Complaint: sob 70-year-old female with past medical history of history, history, AFib, CHF, restrictive lung disease/asthma, anxiety, depression; presented to the hospital today with a chief complaint of shortness of breath. Patient reports over the past few weeks he has been having shortness of breath especially on exertion. Denies any cough or sputum production. Reports having leg swelling. Mentions she takes Lasix at home. When she spoke to her ship engines operating engineer asked her to go to the ER for further evaluation. Patient mentioned that her AFib is under control and is being scheduled for ablation and of October. Denies any chest pain or palpitations. Denies any sick contacts. Denies any orthopnea or PND. Review of all other systems is negative except mentioned above ER course: Per ER team, patient noted peripheral edema; chest x-ray showed layering pleural effusion. Concern for possible acute on chronic CHF. Given Lasix. Hospial course: 70-year-old female with past medical history of history, history, AFib, CHF, restrictive lung disease/asthma, anxiety, depression; presented to the hospital today with a chief complaint of shortness of breath. Noted to be in acute on chronic CHF. Patient was admitted and treated with IV Lasix, and seen by cardiology and overall is feeling better. She is negative of 3580. Will transition back to oral Lasix. Acute on chronic HFrEF: Echo-May 2025 showed EF of 45-50%. Mild LVH. Dilated left atrium. Daily weights and I's and o's negative 5 Arrrangement has been made for her to have pulmonary vein isolation and possibly ablation later AFib: Rate controlled. Continue home amiodarone, Eliquis , metoprolol Hypertension: Resume home valsartan eventually Asthma: Stable Time Attestation Discharge Coordination Time (in mins): 45 Quality: Safe Use of Opioids Does Pt have an Active Cancer Diagnosis on the Problem List?: No Quality: Stroke Does the patient have a stroke diagnosis?: No Physical Exam Vital Signs: Vital Signs: Last Vital Signs Temp 97.9 F 10/21/25 07:40 Pulse 109 H 10/21/25 07:40 Resp 20 10/21/25 07:40 BP 138/100 H 10/21/25 07:40 Pulse Ox 97 10/21/25 07:40 O2 Del Method Room Air 10/21/25 07:40 O2 Flow Rate 1 10/20/25 23:56 BMI result Body Mass Index 51.8 DS: Data Data Completed and Pending Completed studies during hospitalization [Text1]: Procedures Assistance with Respiratory Ventilation, Less than 24 Consecutive Hours, Continuous Positive Airway Pressure (07/12/25) Temple of Cardiac Rhythm, Single (08/20/23) Labs on day of discharge: Laboratory Results - last 24 hr 10/21/25 08:23 Hold Purple Top SEE NOTE Sodium 143 Potassium 3.7 Chloride 105 Carbon Dioxide 29 Anion Gap 13 BUN 18 H Creatinine 0.78 Estim Creat Clear Calc 88.1 Estimated GFR > 60 Random Glucose 126 H Calcium 9.2 NT-Pro-B Natriuret Pep 3036.0 H Discharge Plan Discharge Anticipated Discharge Date/Time: 10/21/25 09:26 Patient Disposition: Home, Self-Care Discharge Diagnosis: Heart Failure exacerbation Referrals: Ang Bernstein MD [Primary Care Provider, Internal Medicine] - 1 Week Discharge Medications: Continued cholecalciferol (vitamin D3) 25 mcg (1,000 unit) capsule 25 mcg PO DAILY Qty: 30 0RF multivitamin Tablet 1 tab PO DAILY Qty: 30 0RF omega-3 fatty acids 1,250 mg capsule 1,250 mg PO DAILY Qty: 30 0RF furosemide 40 mg tablet 40 mg PO DAILY Qty: 90 3RF fluticasone furoate-vilanterol [Breo Ellipta] 200-25 mcg/dose blister with device 1 ea inhalation DAILY Qty: 60 3RF Eliquis 5 mg tablet 5 mg PO BID Qty: 180 3RF albuterol sulfate 90 mcg/actuation HFA aerosol inhaler 2 puff inhalation Q4-6H PRN (Reason: shortness of breath or wheezing) 30 Days Qty: 8.5 3RF Ozempic 1 mg/dose (4 mg/3 mL) pen injector 1 mg SUBCUT FR amiodarone 200 mg tablet 200 mg PO DAILY Rx Instructions: 2 tablets twice a day x 7 days then 1 tablet daily orally; paroxetine HCl 30 mg tablet 45 mg PO DAILY mecobalamin (vitamin B12) 5,000 mcg tablet,disintegrating 5,000 mcg PO DAILY rosuvastatin 10 mg tablet 10 mg PO BEDTIME omeprazole 20 mg capsule,delayed release(DR/EC) 20 mg PO DAILY@0630 valsartan 320 mg tablet 320 mg PO DAILY Qty: 90 3RF metoprolol succinate 50 mg tablet extended release 24 hr 75 mg PO DAILY 90 Days Qty: 135 3RF Discharge Orders: Discharge Order (Routine); Ordered 10/21/25 Ordered By: Rivera Mendoza Diet: Advance to usual diet Activity on Discharge: As tolerated Stand Alone Forms: Patient Portal Discharge page Print Language: Brazilian Care Plan Goals: recovery from heart failure Health Concerns: heart failure atrial fibrilation with rapid heart beats Plan of Treatment: take Lasix as directed follow up with your Doctor in a week Follow up with your the heart doctor is previously planned at [facility] Assessment: see above
--- NOTE | 2025-10-21 10:49 | P.PNCA_ITS ---
Subjective Subjective Date of Service: 10/21/25 Interval history: She states she is feeling better. Shortness of breath is improving. Review of Systems Review of Systems Yes all other systems are reviewed and are negative Constitutional: Reports as per HPI and Reports no additional constitutional complaints Eyes: Reports as per HPI and Denies no additional eye complaints Denies system reviewed and no additional complaints, except as documented and Reports as per HPI Cardiovascular: Reports as per HPI, Reports no additional cardiovascular complaints, Denies acrocyanosis, Denies cool extremities, Denies chest pain, Denies leg edema, Denies lightheadedness, Denies palpitations and Reports dyspnea Respiratory: Reports as per HPI, Denies no additional respiratory complaints and Reports dyspnea Gastrointestinal: Reports as per HPI and Denies no additional gastrointestinal complaints Genitourinary: Reports as per HPI Musculoskeletal: Reports no additional musculoskeletal complaints and Reports as per HPI Skin/Breast: Reports system reviewed and no additional complaints, except as docu Reports system reviewed and no additional complaints, except as documented and Reports as per HPI Psychiatric: Reports no additional psychiatric complaints and Reports as per HPI Endocrine: Reports no additional endocrine complaints, Reports as per HPI and Denies palpitations Hematologic/Lymphatic: Reports no additional hematologic/lymphatic complaints and Reports as per HPI Allergic/Immunologic: Reports no additional allergic/immunologic complaints and Reports as per HPI Physical Exam Vital Signs: Last Vital Signs Temp 97.9 F 10/21/25 07:40 Pulse 109 H 10/21/25 07:40 Resp 20 10/21/25 07:40 BP 138/100 H 10/21/25 07:40 Pulse Ox 97 10/21/25 07:40 O2 Del Method Room Air 10/21/25 07:40 O2 Flow Rate 1 10/20/25 23:56 BMI result Body Mass Index 51.8 Const General: comfortable and no acute distress Orientation/consciousness: patient oriented x3 HEENT Other: Unremarkable Head: Yes normal to inspection Neck Neck: Yes normal visual inspection Chest Chest palpation & inspection: normal inspection of the chest Resp Other: Minimal crackles Cardio Palpation: normal PMI Heart sounds: S1 normal heart sound present, S2 normal heart sound present, no gallops, no murmurs and no rubs GI Palpation (GI): Soft to palpation Back/Spine/Pelvis Other: unremarkable Skin General skin exam: no rashes or lesions noted Neuro General: patient oriented x3 Extrem General: Yes normal to inspection Psych Mental Status: mental status grossly normal Objective Labs and Meds 10/19/25 04:21 10/21/25 08:23 Lab results: Laboratory Results - last 24 hr 10/21/25 08:23 Hold Purple Top SEE NOTE Sodium 143 Potassium 3.7 Chloride 105 Carbon Dioxide 29 Anion Gap 13 BUN 18 H Creatinine 0.78 Estim Creat Clear Calc 88.1 Estimated GFR > 60 Random Glucose 126 H Calcium 9.2 NT-Pro-B Natriuret Pep 3036.0 H Progress Note: A&P Assessment and plan (1) Acute on chronic diastolic (congestive) heart failure: Status: Acute (2) Atrial fibrillation with rapid ventricular response: Status: Acute Plan Echocardiogram from June-LVEF 51%. Left atrium severely dilated. Moderate mitral annular calcification with mild regurgitation. Ascending aortic size 4.1 cm. NT pro BNP is 4293. High sensitivity troponin normal. CTA chest from 10/09-cardiomegaly, small right pleural effusion. Follow-up chest x-ray reported have no significant change from CTA. Cannot exclude right- sided pneumonia. Overall, persistent atrial fibrillation and failed multiple cardioversions and awaiting ablation. If she fails pulmonary vein isolation, then will need AV simona ablation. Can stop IV diuretics and change back to oral diuretics. She is still in atrial fibrillation on telemetry but ventricular rate is well controlled in the 70s. Currently on amiodarone/beta-blockers. On anticoagulation. Await EP appointment for ablation later this month. If she feels short of breath with activity, may need to limit what she does at least till the ablation date. She has already failed multiple cardioversions and unlikely that it will help if repeated. Time Spent With Patient Time: Total time managing care of this patient today ____ minutes. Progress Note: Quality Stroke Does the patient have a stroke diagnosis?: No Procedures Date of Service Date of Service: 10/21/25
[2025-10-21 11:42] VITALS: BP 130/90; PULSE 94; RESP 22; TEMP 36.5; O2SAT 94
--- NOTE | 2025-10-21 12:32 | MHC.CM.PN ---
PATIENT IS MEDICALLY CLEARED FOR DISCHARGE HOME SELF-CARE TODAY, HER WILL TRANSPORT HER HOME.
--- NOTE | 2025-11-04 16:19 | P.CDIM_ITS ---
PROVIDER RESPONSE TEXT: To clarify, the appropriate diagnosis supported by the clinical indicators: Moderate persistent QUERY TEXT: PHYSICIAN'S DOCUMENTATION REQUEST Date of Query: 10/19/2025 09:13 AM EST Patient Name: Gabriela Hernandez Admit Date: 10/19/2025 Dear Rivera Mendoza MD, A review of the medical record indicates additional documentation may be needed. Please review below and update the documentation accordingly. Clinical indicators: Progress notes: Asthma, stable Short of breath, CHF Duoneb 3ml inhale RQ4H while awake prn Based on the above, please clarify in the Progress Notes further specificity regarding the type of asthma: Mild intermittent Mild persistent Moderate persistent Severe persistent Chronic obstructive asthma and indicate if with acute lower respiratory infection Asthma with underlying COPD and indicate if with acute lower respiratory infection Other (explain) Clinically unable to determine (explain) Thank you, Shiloh Gan, CCS, CDIS Use of terms such as suspected, likely, concern for, or probable (associated with a specific diagnosis that is being evaluated, monitored, or treated as if it exists) are acceptable and can be coded in the inpatient setting, when documented at the time of discharge. Please use your independent medical judgment in providing your response. THIS QUERY IS PART OF THE PERMANENT MEDICAL RECORD
== END 2025-10-21 14:20 | disposition home or self-care (01) | DRG 291 ==
LOC: HO.ED 19:24 → HO.EDOVER 19:37 → HO.IMC 10-19 04:53
PROVIDERS: Physician Assistant; Admitting Provider Hospitalist; Emergency Provider Emergency Medicine; PCP Internal Medicine; Visit Provider Internal Medicine
DX: I11.0 Hypertensive heart disease with heart failure (principal); I50.23 Acute on chronic systolic (congestive) heart failure; I48.19 Other persistent atrial fibrillation; J45.40 Moderate persistent asthma, uncomplicated; G47.33 Obstructive sleep apnea (adult) (pediatric); I34.81 Nonrheumatic mitral (valve) annulus calcification; I34.0 Nonrheumatic mitral (valve) insufficiency; Z98.84 Bariatric surgery status; Z87.891 Personal history of nicotine dependence; Z79.01 Long term (current) use of anticoagulants; Z79.899 Other long term (current) drug therapy
CPT/HCPCS: 36415; 71046; 80048; 80053; 83880; 84443; 84484; 85025; 85610; 85730; 93005; 94640; 94660; 99212; 99285; J1938

== ENCOUNTER → 2025-10-18 14:17 | Outpatient (BNV) | payer MEDICARE, OTHER, SELFPAY | PROVIDERS: PCP Internal Medicine; Visit Provider Radiology Diagnostic Radiology | DX: J90 Pleural effusion, not elsewhere classified (principal); I51.7 Cardiomegaly | CPT/HCPCS: 71046 ==

== ENCOUNTER → 2025-10-18 19:25 | Outpatient (BNV) | payer MEDICARE, OTHER, SELFPAY | PROVIDERS: Admitting Provider Hospitalist; Emergency Provider Emergency Medicine; PCP Internal Medicine; Visit Provider Internal Medicine | DX: I50.23 Acute on chronic systolic (congestive) heart failure (principal) | CPT/HCPCS: 99222; 99232 ==

== ENCOUNTER → 2025-10-18 19:25 | Outpatient (BNV) | payer MEDICARE, OTHER, SELFPAY | PROVIDERS: Admitting Provider Hospitalist; Emergency Provider Emergency Medicine; PCP Internal Medicine; Visit Provider Internal Medicine | DX: I50.33 Acute on chronic diastolic (congestive) heart failure (principal); I48.91 Unspecified atrial fibrillation | CPT/HCPCS: 99233 ==

== ENCOUNTER 2025-10-30 15:37 | Outpatient (AMB) | payer MEDICARE, OTHER, SELFPAY ==
[2025-10-30 16:12] VITALS: BP 122/90; PULSE 98; O2SAT 97; BMI 51.0
--- NOTE | 2025-10-30 16:12 | A.OFFVIS_ITS ---
Vital Signs 10/30/25 16:12 Height 5 ft 3 in Weight 287 lb 11.252 oz BMI 51.0 BP 122/90 H Blood Pressure Location Lt brachial Position Sitting Pulse 98 Pulse Source Pulse Oximeter Pulse Oximetry (%) 97 Oxygen Delivery Method Room Air Intake Visit Reasons: Cough Intake Note: pt is here for follow and had a 4 day stay at [facility], will be having an ablation on11/10 at [facility], and today she states she is close to her baseline since being discharged. Teaching Fellow Required: No Rn Lactation Consultant: Rn Lactation Consultant offered & declined Allergies adhesive tape (ADHESIVE TAPE) Allergy (Intermediate, Verified 10/30/25 16:32) BLISTERS Medication List - Last Reconciled 10/30/25 by Han Aldridge MD albuterol sulfate 90 mcg/actuation 2 puffs inhalation Q4-6H PRN 30 days amiodarone 200 mg PO DAILY apixaban (Eliquis) 5 mg PO BID cholecalciferol (vitamin D3) 25 mcg PO DAILY fluticasone furoate-vilanterol 200-25 mcg/dose (Breo Ellipta) 1 ea inhalation DAILY furosemide 40 mg PO DAILY mecobalamin (vitamin B12) 5,000 mcg PO DAILY metoprolol succinate ER 75 mg (1.5 x 50 mg) PO DAILY 90 days multivitamin 1 tab PO DAILY omega-3 fatty acids 1,250 mg PO DAILY omeprazole 20 mg PO DAILY@0630 paroxetine HCl 45 mg PO DAILY rosuvastatin 10 mg PO BEDTIME semaglutide (Ozempic) 1 mg subcut FR valsartan 320 mg PO DAILY Do you need a note to return to daycare/school/sports/work: No HPI HPI Cough: Details: YOUNG WAS RECENTLY HOSPITALIZED DUE TO CONGESTIVE HEART FAILURE AND RIGHT PLEURAL EFFUSION. SHE WILL BE UNDERGOING ABLATION THERAPY. SHE SAY IS SINCE SHE WAS DIURESED HER BREATHING HAS BEEN BETTER. SHE DENIES ANY ATTACKS OF COUGH OR WHEEZING. SHE REMAINS QUITE OBESE. LOCOMOTION IS IMPAIRED AND SHE USES WALKER. [facility] Medical History A-fib Restrictive lung disease Bilateral cataracts History of cardioversion GERD (gastroesophageal reflux disease) Bronchitis Asthma exacerbation PAF (paroxysmal atrial fibrillation) MDD (major depressive disorder) HTN (hypertension) Post covid-19 condition, unspecified Morbid obesity JIMBO on CPAP Bronchial asthma Surgical History History of cardioversion Anal fistula Hx of laparoscopic gastric banding History of hysterectomy for cancer H/O umbilical hernia repair History of cholecystectomy H/O colonoscopy Social History Household Members: Spouse Housing: House Are you a primary care advocate to a significant other at home: No Do you presently have visiting nurse or other home services: No Alcohol intake: never Patient Tobacco Use Status: Former Tobacco user Tobacco use type: Cigarette Years Smoked: 25 Second Hand Smoke Exposure: No Advance Directives Date on File: 12/23/22 service: No Current occupational status: unemployed Review of Systems Const All systems reviewed & are unremarkable except as noted in HPI and below Eyes Reports no additional complaints ENT Reports no additional complaints Card Denies chest pain, Denies irregular heart rhythm and Denies leg edema Resp Reports as per HPI, Reports cough and Reports wheezing GI Reports as per HPI Reports no additional complaints Musc Reports no additional complaints Skin/Breast Reports system reviewed and no additional complaints, except as documented Neuro Reports no additional complaints Psych Reports no additional complaints Aller/Immun Reports wheezing Physical Exam Vital Signs: Last Vital Signs Pulse 98 10/30/25 16:12 BP 122/90 H 10/30/25 16:12 Pulse Ox 97 10/30/25 16:12 Oxygen Delivery Method Room Air 10/30/25 16:12 BMI result Body Mass Index 51.0 She remains grossly obese with a round face Const General: comfortable, no acute distress, alert and awake Orientation/consciousness: patient oriented x3 HEENT Head: Yes normal to inspection General nose exam: No nasal polyps present and No nasal discharge present Face and sinus: Yes sinuses nontender Mouth: oropharynx abnormals (CROWDED, MALLAMPATI CLASS 4) Throat: Yes posterior oropharynx normal Eyes General: appearance normal, both eyes and all related structures Neck Neck: Yes normal visual inspection, Yes no lymphadenopathy, Yes trachea midline and Yes no JVD Thyroid: Thyroid normal Chest Chest palpation & inspection: normal inspection of the chest, normal palpation of entire chest wall and no tenderness Resp Other: PERCUSSION NOTE IS RESONANT, BREATH SOUNDS ARE DISTANT BUT EQUAL ON BOTH SIDES. DIMINISHED OVER THE BASILAR AREAS. NO WHEEZES OR CREPITATIONS ARE HEARD TODAY. Cardio Palpation: normal PMI Rate: regular rate Heart sounds: no gallops and no murmurs Peripheral pulses: Peripheral pulses 2+ throughout GI Palpation (GI): Soft to palpation, nontender, No hepatosplenomegaly present and no masses Auscultation: normal bowel sounds Back/Spine/Pelvis Thoracic/Lumbar Spine: thoracic and lumbar spine normal to inspection and thoraco-lumbar ROM limited Skin General skin exam: no rashes or lesions noted Neuro General: patient oriented x3, No gait normal (MILD IMPAIRMENT DUE TO LOW BACK STIFFNESS, USES CANE) and no focal motor deficits Cranial nerves: Yes CN's II-XII intact bilaterally Extrem General: Yes normal to inspection, Yes no clubbing, cyanosis or edema and Yes no calf tenderness Psych Appearance: grossly normal and well kempt Speech and movement: Normal speech and movement present Results Reviewed Results Reviewed: CT SCAN OF THE CHEST ON 10/09/25 SHOWED RESIDUAL PLEURAL EFFUSION. MARKED CARDIOMEGALY. THE 5 MM RIGHT UPPER LOBE NODULE WAS OBSCURED. THERE IS NO EVIDENCE OF ANY INTERSTITIAL LUNG DISEASE. Assessment & Plan Assessment & Plan (1) Bronchial asthma: Comment: SHE HAS MILD INTERMITTENT BRONCHIAL ASTHMA. NO EVIDENCE OF COPD MOST LIKELY SHE HAS SIGNIFICANT RESTRICTIVE PULMONARY DISORDERN DUE TO HER OBESITY AND ASSOCIATED CARDIAC PROBLEM. SHE IS ON AMIODARONE 200 MG DAILY, I WOULD LIKE TO MAKE SURE THAT THERE IS NO INTERSTITIAL LUNG DISEASE Code(s): J45.909 - Unspecified asthma, uncomplicated Category: Medical Plan: CONTINUE BREO 200-251 INHALATION DAILY. ALBUTEROL HFA 2 PUFFS Q 6 HOURS ONLY P.R.N. (2) JIMBO on CPAP: Comment: CASE OF OBSTRUCTIVE SLEEP APNEA SECONDARY TO MORBID OBESITY FOR MANY YEARS. TREATED WELL WITH USE OF CPAP. PATIENT IS WELL USED TO CPAP DEVICE , HAS BEEN VERY COMPLIANT AND BENEFITTING. NO ISSUES WITH THE MACHINE OR CPAP MASK. THE NEW CPAP MACHINE IS WORKING WELL. COULD NOT PRINT HER COMPLIANCE , BUT SHE IS USING VERY REGULARLY. Code(s): G47.33 - Obstructive sleep apnea (adult) (pediatric); Z99.89 - Dependence on other enabling machines and devices Category: Medical Plan: CONTINUE USING CPAP EVERY NIGHT MUCH SHE CAN (3) Restrictive lung disease: Comment: SHE HAS PATTERN OF RESTRICTIVE LUNG DISEASE SECONDARY TO GROSS OBESITY, CONGESTIVE HEART FAILURE, RECENT PLEURAL EFFUSION Code(s): J98.4 - Other disorders of lung Category: Medical Plan: WEIGHT REDUCTION DEPENDS UPON THE LEVEL OF DIURESIS AT THIS TIME PATIENT IS ADVISED TO DO DEEP BREATHING EXERCISES 2 TO 3 TIMES A DAY. (4) Acute on chronic diastolic (congestive) heart failure: Comment: RECENTLY HOSPITALIZED BECAUSE OF CONGESTIVE HEART FAILURE RIGHT PLEURAL EFFUSION WHICH HAS IMPROVED WITH DIURESIS. PATIENT CLAIMS TO BE FEELING BETTER. Code(s): I50.33 - Acute on chronic diastolic (congestive) heart failure Category: Medical Plan: CONTINUE FUROSEMIDE 40 MG DAILY PRESCRIBED BY CARDIOLOGY SERVICE. CONTINUE TO BE CLOSELY FOLLOWED BY CARDIOLOGY. (5) PAF (paroxysmal atrial fibrillation): Comment: PATIENT DOES HAVE PAROXYSMAL ATRIAL FIBRILLATION, AT PRESENT CONTROLLED SHE IS ON ELIQUIS 5 MG B.I.D.. SHE IS SCHEDULED TO HAVE ABLATION THERAPY NEXT WEEK. Code(s): I48.0 - Paroxysmal atrial fibrillation Category: Medical Plan: CLOSE FOLLOW-UP WITH CARDIOLOGY SERVICE Coding Level of Care Code Est Pt Level 3 (25473) Diagnoses Bronchial asthma J45.909 JIMBO on CPAP G47.33; Z99.89 Restrictive lung disease J98.4 Acute on chronic diastolic (congestive) heart failure I50.33 PAF (paroxysmal atrial fibrillation) I48.0
--- OUTSIDE RECORDS SUMMARY | 2025-10-30 22:07 | XMS_ITS | Encounter Summary ---
Author Organization [facility] Address [address] [place] [address] Phone Care Team Providers Care Paralegal Specialist Name Role Phone Ang Bernstein MD Primary Care Provider [phone] Ang Bernstein MD Unavailable [phone] Reason for Referral * MRI/CAT Scan - Authorized Specialty Diagnoses / Procedures Referred By Contac t Referred To Contact Radiology Procedures Outside CT Chest Report Only [facility] Internal Medicine [address] [place] [address] Phone: tel: fax: Referral ID Status Reason Start Date Expiration Date V isits Requested Visits Authorized [id number] Authorized 10/09/2025 10/09/2026 1 1 Encounter Details Date Type Department Care Team (Late st Contact Info) Description 10/09/2025 Orders Only [facility] Internal Medicine [address] [place] [address] Angelic Johnson MD [address] [place] [address] Social History Tobacco Use Types Packs/Day [...] Description 11/01/2025 3:30 PM EST Office Visit [facility] [address] [place] [address] Ang Bernstein MD [address] [place] [address] 11/17/2025 1:30 PM EST Telemedicine [facility] Behavioral Health [address] [place] [address] Ariella Bonilla, PMHNP- [address], [address] [place] [address] documented as of this encounter Procedures Procedure [...] EDT PHQ-2 Depression Total Score: 2 08/01/20 25 3:17 PM EDT documented as of this encounter Care Teams Paralegal Specialist Relationship Specialty Start Date End Date Ang Bernstein MD [address] [place] [address] PCP - General 10/15/17 Ang Bernstein MD [address] [place] [address] Insurance Assigned Provider 02/20/24 documented as of this encounter Additional Source Comments The information contained in this document represents components of the legal health record. It is not the complete legal health record.[facility]
--- OUTSIDE RECORDS SUMMARY | 2025-10-30 22:07 | XMS_ITS | Encounter Summary ---
Author Organization [facility] Address [address] [place] [address] Phone Care Team Providers Care Health Worker Name Role Phone Ang Bernstein MD Primary Care Provider [phone] Ang Bernstein MD Unavailable [phone] Ela Alarcon RN Unavailable [phone] Encounter Details Date Type Department Care Team (Late st Contact Info) Description 03/25/2023 Telephone [facility] [address] [place] [address] Barbara Barrientos RN [email or web address] Social History Tobacco Use Types [...] Office Visit [facility] Internal Medicine [address] [place], [place] [phone] Ang Bernstein MD 40 [place], [place] [phone] 11/17/2025 1:30 PM EST Telemedicine [facility] Behavioral Health [address] [place] [address] Ariella Bonilla, [facility] [address] [facility], [facility] [address] [place] [address] documented as of this encounter Visit Diagnoses Not on filedocumented in this encounter Additional Health Concerns Assessment Noted Time PHQ-9 Depression Total Score: 6 04/22/20 22 3:50 PM EDT PHQ-2 Depression Total Score: 2 04/22/20 22 3:50 PM EDT documented as of this encounter Care Teams Health Worker Relationship Specialty Start Date End Date Ang Bernstein MD [address] [place] [address] PCP - General 10/15/17 Ang Bernstein MD [address] [place] [address] Insurance Assigned Provider 02/20/24 Ela Alarcon, RN [address] [place] [address] [phone] PHCM Shelter MonitorDelinquent Account Clerk 06/15/23 07/05/23 documented as of this encounter Additional Source Comments The information contained in this document represents components of the legal health record. It is not the complete legal health record.[facility]
--- OUTSIDE RECORDS SUMMARY | 2025-10-30 22:07 | XMS_ITS | Encounter Summary ---
Author Organization [facility] Address [address] [place] [address] Phone Care Team Providers Care Pre Assembly Wirer Name Role Phone Ang Bernstein MD Primary Care Provider Ang Bernstein MD Unavailable [phone] Encounter Details Date Type Department Care Team (Late st Contact Info) Description 12/20/2024 Procedure Pass [facility], Ct Scan - [address] [address] Social History Tobacco Use Types Packs/Day Years [...] [facility] Internal Medicine [address] [place], [place] [phone] Ang Bernstein MD [address] [place] [address] [email or web address] 11/17/2025 1:30 PM EST Telemedicine [facility] [address] [place] [address] Ariella Bonilla, [facility]-[address], [address] [address] [email or web address] documented as of this encounter Visit Diagnoses Not on filedocumented in this encounter Additional Health Concerns Assessment Noted Time PHQ-9 Depression Total Score: 6 04/22/20 22 3:50 PM EDT PHQ-2 Depression Total Score: 2 07/21/20 24 6:18 PM EDT documented as of this encounter Care Teams Pre Assembly Wirer Relationship Specialty Start Date End Date Ang Bernstein MD [address] [place] [address] [email or web address] PCP - General 10/15/17 Ang Bernstein MD [address] [place] [address] [email or web address] Insurance Assigned Provider 02/20/24 documented as of this encounter Additional Source Comments The information contained in this document represents components of the legal health record. It is not the complete legal health record.[facility]
--- OUTSIDE RECORDS SUMMARY | 2025-10-30 22:07 | XMS_ITS | Encounter Summary ---
Author Organization [facility] Address [address] [facility] [address] [facility] [address] [place] [address] Phone Care Team Providers Care Guard Entrance Registrar Name Role Phone Ang Bernstein MD Primary Care Provider [phone] Ang Bernstein MD Unavailable [phone] Encounter Details Date Type Department Care Team (Late st Contact Info) Description 01/04/2025 Procedure Pass [facility], [address] [address] Social History Tobacco Use Types Packs/Day Years [...] Visit [facility] Internal Medicine [address] [place] [address] Ang Bernstein MD [address] [place] [address] [email or web address] 11/17/2025 1:30 PM EST Telemedicine [facility] Behavioral Health [address] [place] [address] Ariella Bonilla, [facility]-[address], [address] [address] [email or web address] documented as of this encounter Visit Diagnoses Not on filedocumented in this encounter Additional Health Concerns Assessment Noted Time PHQ-9 Depression Total Score: 6 04/22/20 22 3:50 PM EDT PHQ-2 Depression Total Score: 2 07/21/20 24 6:18 PM EDT documented as of this encounter Care Teams Guard Entrance Registrar Relationship Specialty Start Date End Date Ang Bernstein MD [address] [place] [address] [email or web address] PCP - General 10/15/17 Ang Bernstein MD [address] [place] [phone] (work) [email or web address] Insurance Assigned Provider 02/20/24 documented as of this encounter Additional Source Comments The information contained in this document represents components of the legal health record. It is not the complete legal health record.[facility]
--- OUTSIDE RECORDS SUMMARY | 2025-10-30 22:07 | XMS_ITS | Encounter Summary ---
Author Organization [facility] Address [address] [facility] [address] [place] [address] Phone Care Team Providers Care Account Liaison Name Role Phone Ang Bernstein MD Primary Care Provider [phone] Ang Bernstein MD Unavailable [phone] Encounter Details Date Type Department Care Team (Late st Contact Info) Description 01/04/2025 Procedure Pass [facility], [address] [address] Social History Tobacco Use Types Packs/Day Years [...] Description 11/01/2025 3:30 PM EST Office Visit [facility] Internal Medicine [address] [place] [address] Ang Bernstein MD [address] [place] [address] [email or web address] 11/17/2025 1:30 PM EST Telemedicine [facility] Behavioral Health [address] [place] [address] Ariella Bonilla, [facility]-[address], [address] [address] [email or web address] documented as of this encounter Visit Diagnoses Not on filedocumented in this encounter Additional Health Concerns Assessment Noted Time PHQ-9 Depression Total Score: 6 04/22/20 22 3:50 PM EDT PHQ-2 Depression Total Score: 2 07/21/20 24 6:18 PM EDT documented as of this encounter Care Teams Account Liaison Relationship Specialty Start Date End Date Ang Bernstein MD [address] [place] [address] [email or web address] PCP - General 10/15/17 Ang Bernstein MD [address] [place] [phone] (work) [email or web address] Insurance Assigned Provider 02/20/24 documented as of this encounter Additional Source Comments The information contained in this document represents components of the legal health record. It is not the complete legal health record.[facility]
--- OUTSIDE RECORDS SUMMARY | 2025-10-30 22:07 | XMS_ITS | Encounter Summary ---
Author Organization [facility] Address [address] [facility] [address] [place] [address] Phone Care Team Providers Care Quality Assurance Coordinator Name Role Phone Ang Bernstein MD Unavailable [phone] Renu Araujo CURTAIN STITCHER Unavailable [phone] Josi Quinonez CURTAIN STITCHER Unavailable Becka Brar CURTAIN STITCHER Unavailable [phone] Bryce Steve MD Unavailable Ang Bernstein MD Primary Care Provider Ang Bernstein MD Unavailable [phone] Ela Alarcon RN Unavailable Encounter Details Date Type Department Care Team (Late st Contact Info) Description 06/23/2019 Ancillary Orders [facility] [address] [place] [address] Jelena oSw MD [address] [place] [address] Orthopedics & Sports Medicine, [place] [address] Social History Tobacco Use Types Packs/Day Years [...] Description 11/01/2025 3:30 PM EST Office Visit [facility] Internal Medicine [address] [place] [address] Ang Bernstein MD 40 [place] [address] 11/17/2025 1:30 PM EST Telemedicine [facility] Behavioral Health [address] [place] [address] Ariella Bonilla, [facility]-[address], [address] [address] documented as of this encounter Visit Diagnoses Not on filedocumented in this encounter Additional Health Concerns Infection Onset Date Last Indicated Resolved Time CoV-Presumed 06/13/2022 06/13/2022 07/04/2022 1:21 AM EDT Assessment Noted Time PHQ-2 Depression Total Score: 0 12/10/19 19 8:40 AM EST documented as of this encounter Care Teams Quality Assurance Coordinator Relationship Specialty Start Date End Date Ang Bernstein MD [address] [place] [address] PCP - General 10/15/17 Ang Bernstein MD [address] [place] [address] Historical LMR Provider 09/05/17 09/13/19 Renu Araujo, CURTAIN STITCHER [address] [place] [address] [email or web address] Historical LMR Provider 09/05/1709/13 Josi Quinonez, CURTAIN STITCHER [address] [facility] [address] [place] [address] Historical LMR Provider 09/05/1709/13 Becka Brar, [place] [address] [address] Historical LMR Provider 09/05/17 09/13/19 [place] [address] Historical LMR Provider 09/05/17 Ang Bernstein MD [address] [place] [address] Insurance Assigned Provider 02/20/24 Ela Alarcon, RN [address] [place] [phone] PHCM Employee RepresentativeFire Equipment Inspector Helper 06/15/23 07/05/23 documented as of this encounter Additional Source Comments The information contained in this document represents components of the legal health record. It is not the complete legal health record.[facility]
--- OUTSIDE RECORDS SUMMARY | 2025-10-30 22:07 | XMS_ITS | Encounter Summary ---
Author Organization [facility] Address [address] [facility] [address] [place] [address] Phone Care Team Providers Care Director Of Land Name Role Phone Ang Bernstein MD Unavailable Renu Araujo SOLID CENTER WINDER Unavailable Josi Quinonez SOLID CENTER WINDER Unavailable Becka Brar SOLID CENTER WINDER Unavailable [phone] Bryce Steve MD Unavailable [phone] Ang Bernstein MD Primary Care Provider Ang Bernstein MD Unavailable Ela Alarcon RN Unavailable Encounter Details Date Type Department Care Team (Late st Contact Info) Description 06/23/2019 Ancillary [facility] [address] [place] [address] Jelena Sow MD [address] [place] [address] [facility] [place], [place] [id number] [email or web address] Right ankle pain, unspecified chronicity [...] Description 11/01/2025 3:30 PM EST Office Visit [facility] Internal Medicine [address] [place] [address] Ang Bernstein MD [address] [place] [address] [email or web address] 11/17/2025 1:30 PM EST Telemedicine [facility] Behavioral Health 22 [place] [address] Ariella Bonilla, [facility]- [address] [facility] [place] [address] [email or web address] documented as of this encounter Results * [...] documented as of this encounter Care Teams Director Of Land Relationship Specialty Start Date End Date Ang Bernstein MD [address] [place] [address] PCP - General 10/15/17 Ang Bernstein MD [address] [place] [address] Historical LMR Provider 09/05/17 09/13/19 Renu Araujo NP [address] [place] [address] [email or web address] Historical LMR Provider 09/05/1709/13 Josi Quinonez, [place] [address] [place] [address] Historical LMR Provider 09/05/1709/13 Becka Brar NP [address] [place] [address] Historical LMR Provider 09/05/17 09/13/19 Bryce Steve MD [address] [place] [address] Historical LMR Provider 09/05/17 Ang Bernstein MD [address] [place] [address] Insurance Assigned Provider 02/20/24 Ela Alarcon, RN [address] [place] [address] [email or web address] PHCM Head Tennis CoachVan Loader 06/15/23 07/05/23 documented as of this encounter Additional Source Comments The information contained in this document represents components of the legal health record. It is not the complete legal health record.[facility]
--- OUTSIDE RECORDS SUMMARY | 2025-10-30 22:08 | XMS_ITS | Encounter Summary ---
Author Organization [facility] Address [address] [place] [address] Phone Care Team Providers Care Overlock Waistline Joiner Name Role Phone Ang Bernstein MD Primary Care Provider [phone] Ang Bernstein MD Unavailable [phone] Encounter Details Date Type Department Care Team (Late st Contact Info) Description 10/19/2025 Orders Only [facility] Internal Medicine [address] [place] [address] Provider, MD Angelic [address] [place] [address] Social History Tobacco Use Types Packs/Day Years [...] Description 11/01/2025 3:30 PM EST Office Visit [facility] Internal Medicine [address] [place] [address] Ang Bernstein MD [address] [place] [address] [email or web address] 11/17/2025 1:30 PM EST Telemedicine [facility] [address] [place] [address] Ariella Bonilla, HNP-[address], [address] [address] [email or web address] documented as of this encounter Procedures Procedure Name Priority Date/Time Associated Diagnosis Comments OUTSIDE XR CHEST REPORT ONLY Routine 10/18/2025 8:15 AM EST documented in this encounter Results * Outside XR??Chest Report Only (10/18/2025 8:15 AM EST) us Historical Provider MD MARAVILLA XR CHEST Final Res ult documented in this encounter Visit Diagnoses Not on filedocumented in this encounter Additional Health Concerns Assessment Noted Time PHQ-9 Depression Total Score: 6 08/01/20 25 3:17 PM EDT PHQ-2 Depression Total Score: 2 08/01/20 25 3:17 PM EDT documented as of this encounter Care Teams Overlock Waistline Joiner Relationship Specialty Start Date End Date Ang Bernstein MD [address] [place] [address] [email or web address] PCP - General 10/15/17 Ang Bernstein MD [address] [place] [address] [email or web address] Insurance Assigned Provider 02/20/24 documented as of this encounter Additional Source Comments The information contained in this document represents components of the legal health record. It is not the complete legal health record.[facility]
--- OUTSIDE RECORDS SUMMARY | 2025-10-30 22:08 | XMS_ITS | Encounter Summary ---
Author Organization [facility] Address [address] [place] [address] Phone Care Team Providers Care Museum Docent Name Role Phone Ang Bernstein MD Primary Care Provider [phone] Ang Bernstein MD Unavailable [phone] Encounter Details Date Type Department Care Team (Late st Contact Info) Description 03/22/2025 Documentation [facility] Internal Medicine [address] [place], [place] [id number] Ang Bernstein MD [address] [place] [address] [email or web address] Social History Tobacco Use Types Packs/Day Years [...] Description 11/01/2025 3:30 PM EST Office Visit [facility] Internal Medicine [address] [place] [address] Ang Bernstein MD [address] [place] [address] [email or web address] 11/17/2025 1:30 PM EST Telemedicine [facility] [address] [place] [address] Ariella Bonilla, PMHNP-BC [address] [place] [address], [address] [address] [email or web address] documented as of this encounter Procedures Procedure [...] documented as of this encounter Care Teams Museum Docent Relationship Specialty Start Date End Date Ang Bernstein MD [address] [place] [address] [email or web address] PCP - General 10/15/17 Ang Bernstein MD [address] [place] [address] Insurance Assigned Provider 02/20/24 documented as of this encounter Additional Source Comments The information contained in this document represents components of the legal health record. It is not the complete legal health record.[facility]
--- OUTSIDE RECORDS SUMMARY | 2025-10-30 22:08 | XMS_ITS | Clinical Summary ---
Author Organization [facility] Address [address] [facility] [address] [place] [address] Phone Care Team Providers Care Front End Architect Name Role Phone Ang Bernstein MD Primary Care Provider [phone] Ang Bernstein MD Unavailable [phone] Allergies Active Allergy Reactions Criticality Noted Date [...] p.o. twice daily. 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 [...] Encounters Date Type Department Care Team Description 10/19/2025 Orders Only [facility] Internal Medicine [address] [facility] [place] [address] Angelic Johnson MD 10/09/2025 Orders Only [facility] Internal Medicine [address] [facility] [place] [address] Angelic Johnson MD 09/01/2025 Telephone [facility] Internal Medicine [address] [facility] [place] [address] Ang Bernstein MD 09/01/2025 Telephone [facility] Internal Medicine [address] [facility] [place] [address] Ang Bernstein MD 09/01/2025 Refill [facility] Internal Medicine [address] [facility] [place] [address] Ang Bernstein MD Medication Refill 08/02/2025 11:00 AM EDT Office Visit [facility] Internal Medicine [address] [facility] [place] [address] Ang Bernstein MD Routine general medical examination at a health care facility (Primary Dx); Diabetes mellitus with microalbuminuria; Need for prophylactic vaccination and inoculation against influenza; Other depression; Essential hypertension; Obesity, morbid; Chronic diastolic HF (heart failure); Permanent atrial fibrillation; Asthma-COPD overlap syndrome; Vitamin D deficiency; Vitamin B12 deficiency 08/01/2025 Documentation [facility] [place] Internal Medicine [address] [address] Ang Bernstein MD from Last 3 Months [...] 11/01/2025 3:30 PM EST Office Visit [facility] Internal Medicine [address] [facility] [address] Ang Bernstein MD [address] [place] [address] 11/17/2025 1:30 PM EST [facility] [address] [place] [address] Ariella Bonilla, PMHNP-BC [address] [facility] [place] [address] [email or web address] Health Maintenance Due Date Last Done Comments [...] Additional history exists HEMOGLOBIN A1C 09/27/2025 03/27/2025, 07/2025, 07/25/2024, Additional history exists BLOOD PRESSURE 01/30/2026 08/02/2025 ALT LEVEL (ALANINE AMINOTRANSFERASE) 03/27/2026 03/27/2025, 11/24/2024, 07/25/2024, Additional history exists CREATININE LEVEL 03/27/2026 03/27/2025, 07/2025, 07/25/2024, Additional history exists POTASSIUM LEVEL 03/27/2026 03/27/2025, 07/2025, 07/25/2024, Additional history exists TSH LEVEL 03/27/2026 03/27/2025, 07/2025, 07/25/2024, Additional history exists DEPRESSION SCREENING [...] REPORT ONLY Routine 10/18/2025 8:[address] CHEST REPORT ONLY Routine 10/09/2025 10:51 AM EST HM MAMMOGRAPHY Routine 04/25/2025 4:38 PM EDT OUTSIDE HEMOGLOBIN A1C Routine 03/27/2025 OUTSIDE TSH LEVEL Routine 03/27/2025 OUTSIDE POTASSIUM LEVEL Routine 03/27/2025 OUTSIDE SERUM CREATININE LEVEL Routine 03/27/2025 OUTSIDE ALT LEVEL Routine 03/27/2025 HM DIABETES EYE EXAM FOR RESULT ENTRY ONLY Routine 11/23/2023 OUTSIDE BONE DENSITY SCREENING Routine 02/07/2021 HEPATITIS C ANTIBODY, QUALITATIVE Routine 10/28/2019 2:23 PM EST Encounter for hepatitis C screening test for low risk patient COLONOSCOPY FOR RESULT ENTRY ONLY Routine 08/28/2016 from Last 3 Months or Most Recently Relevant to Health Maintenance Results * Outside XR??Chest Report Only (10/18/2025 8:15 AM EST) Historical Provider IMG XR CHEST Final Res ult * Outside CT??Chest Report Only (10/09/2025 10:51 AM EST) Historical Provider IMG CT CHEST Final Res ult * HM MAMMOGRAPHY FOR RESULT ENTRY ONLY (04/25/2025 4:38 PM EDT) Result [facility] Provider HEALTH MAINTENANCE Final Result * Outside TSH Level (03/27/2025) TSH - External 1.37 0.5 - 5 uIU/L EXTERNAL NON-INTERFACED REF LAB Result [facility] Provider MD LAB BLOOD ORDERABLES Za l Result Performing Organization Address [facility] de Phone Number EXTERNAL NON-INTERFACED REF LAB * Outside Potassium Level (03/27/2025) Potassium level - External 4.5 3.4 - 5.0 mmol/L EXTERNAL NON-INTERFACED REF LAB Result [facility] Provider MD LAB BLOOD ORDERABLES Za l Result Performing Organization Address [facility] Co de Phone Number EXTERNAL NON-INTERFACED REF LAB * Outside HbA1c (03/27/2025) Hemoglobin A1c - External 6.2 % EXTERNAL NON-INTERFACED REF LAB Result [facility] Provider MD LAB BLOOD ORDERABLES Za l Result Performing Organization Address [facility] de Phone Number EXTERNAL NON-INTERFACED REF LAB * (ABNORMAL) Outside Serum Creatinine Level (03/27/2025) Creatinine, serum - External 0.65(A) 0.8 - 1.3 mg/dL EXTERNAL NON-INTERFACED REF LAB Historical Provider LAB BLOOD ORDERABLES Za l Result EXTERNAL NON-INTERFACED REF LAB * Outside ALT Level (03/27/2025) Pathologist [facility] ALT - External 12 5 - 30 U/L EXTE RNAL NON-INTERFACED REF LAB Result [facility] Historical Provider LAB BLOOD ORDERABLES Za l Result Performing Organization Address [facility]/ZIP Co de Phone Number EXTERNAL NON-INTERFACED REF LAB * DIABETES EYE EXAM FOR RESULT ENTRY ONLY (11/23/2023) Pathologist formerly [facility] EYE EXAM normal Result [facility] Historical Provider HEALTH MAINTENANCE Final Result * OUTSIDE BONE DENSITY SCREENING (02/07/2021) [facility] BONE DENSITY SCREENING - EXTERNAL osteopenia Historical Provider HEALTH MAINTENANCE Final Result * Hepatitis C antibody, qualitative (10/28/2019 2:23 PM EST) [facility] HCV NON-REACTIV E NON-REACTI VE [facility] Blood 10/28/2019 2:23 PM EST 10/28/2019 2:26 PM EST Result [facility] Ang Bernstein MD LAB BLOOD BKR ORDERABLES Za l Result Performing Organization Address [facility] Co de Phone Number [address] [address] * COLONOSCOPY FOR RESULT ENTRY ONLY (08/28/2016) Pathologist formerly [facility] Colonoscopy 10 yr recall Result [facility] Historical Provider HEALTH MAINTENANCE Edited Result - Final from Last 3 Months or Most Recently Relevant to Health Maintenance Insurance [employer] MEDICARE SUPPLEMENT MEDICARE PART A & B [facility] EXTENSION MEDICARE SUPPLEMENT MEDICARE PART A & B [facility] SU[facility] MEDICARE PART A & B [facility] EXTENSION MEDICARE SUPPLEMENT MEDICARE PART A & B Member Subscriber Plan / Payer (Ef fective 2020-Present) Name:Gabriela Hernandez Member ID:[id number] Relation to Subscriber:Self Name:Gabriela Hernandez Subscriber ID:[id number] Payer ID:[id number] Group ID:Not on file Type:Medicare Address: [facility] [address] [address] [facility] EXTENSION MEDICARE SUPPLEMENT MEDICARE PART A & [place] [address] [address] [employer]ION MEDICARE SUPPLEMENT MEDICARE PART A & B [facility] EX[employer]ION MEDICARE SUPPLEMENT MEDICARE PART A & B Member Subscriber Plan / Payer (Ef fective 2020-Present) Name:Gabriela Hernandez Member ID:[id number] Relation to Subscriber:Self Name:Gabriela Hernandez Subscriber ID:[id number] Payer ID:[id number] Group ID:Not on file Type:Medicare Address: [facility] [address] [address] [facility] EX[employer]ION MEDICARE SUPPLEMENT MEDICARE PART A & B Member Subscriber Plan / Payer (Ef fective 2020-Present) Name:Gabriela Hernandez Member ID:[id number] Relation to Subscriber:Self Name:Gabriela Hernandez Subscriber ID:[id number] Payer ID:[id number] Group ID:Not on file Type:Medicare Address: [facility] [address] [place] [address] EXTENSION MEDICARE SUPPLEMENT MEDICARE PART A & B Care Teams Front End Architect Relationship Specialty Start Date End Date Ang Bernstein MD [address] [place] [address] [email or web address] PCP - General 10/15/17 Ang Bernstein MD [address] [place] [address] [email or web address] Insurance Assigned Provider 02/20/24 Additional Source Comments The information contained in this document represents components of the legal health record. It is not the complete legal health record.[facility]
== END 2025-10-30 16:32 | disposition home or self-care (01) ==
LOC: HO.HPS 15:38
PROVIDERS: PCP Internal Medicine; Visit Provider Internal Medicine
DX: J45.909 Unspecified asthma, uncomplicated (principal); G47.33 Obstructive sleep apnea (adult) (pediatric); Z99.89 Dependence on other enabling machines and devices; J98.4 Other disorders of lung; I50.33 Acute on chronic diastolic (congestive) heart failure; I48.0 Paroxysmal atrial fibrillation
CPT/HCPCS: 99213

== ENCOUNTER → 2025-10-30 15:37 | Outpatient (BNVA) | payer MEDICARE, OTHER, SELFPAY | PROVIDERS: PCP Internal Medicine; Visit Provider Internal Medicine | DX: J45.20 Mild intermittent asthma, uncomplicated (principal); G47.33 Obstructive sleep apnea (adult) (pediatric); Z99.89 Dependence on other enabling machines and devices; J98.4 Other disorders of lung; I50.33 Acute on chronic diastolic (congestive) heart failure; I48.0 Paroxysmal atrial fibrillation; Z87.891 Personal history of nicotine dependence | CPT/HCPCS: 99212 ==